=== PATIENT | female | born 1975 | race Hispanic/Latino ===

== ENCOUNTER 2017-09-17 11:05 | Emergency (ER) | payer OTHER ==
--- NOTE | 2017-09-17 11:54 | RAD ---
PORTABLE CHEST 1 VIEW: Date: 09/17/17 Time: 1122 hours HISTORY: Chest pain. FINDINGS: Comparison is made with exam dated 06/19/17. The heart size is normal. There are air space opacities bilaterally, right greater than left. No pne umothoraces or large effusions are seen. IMPRESSION: Findings are suspicious for pneumonia. POS: [facility]
[2017-09-17 12:13] LABS: Lactic Acid - Sepsis 1.4 mmol/L (0.5-2.2)
[2017-09-17] MEDS ORDERED: Piperacillin/Tazobactam 3.375 GM VIAL ONE (13:26)
[2017-09-17 13:56] LABS: #Basophils 0.1 thou/uL (0.0-0.2); #Lymphocytes 1.2 thou/uL (1.20-3.40); #Monocytes 0.4 thou/uL (0.11-0.59); #Neutrophils 9.8 thou/uL (1.40-6.50); %Basophils 0.6 % (0.0-1.0); %Eosinophils 7.8 % (0.0-10.0); %Lymphocytes 9.9 % (21.0-51.0); %Monocytes 3.3 % (0.0-10.0); Hematocrit 33.5 % (36.0-47.0); Mean Platelet Volume 7.4 fL (7.4-10.4); Red Blood Cell (RBC) Count 3.84 mill/uL (4.20-5.40); White Blood Cell (WBC) Count 12.5 thou/uL (4.8-10.8)
[2017-09-17 14:03] LABS: PTT 28.6 SEC (22.9-36.1); Prothrombin Time 12.5 SEC (12.0-14.7)
[2017-09-17 14:17] LABS: ALT (SGPT) 32 U/L (8-55); AST (SGOT) 39 U/L (5-34); Alkaline Phosphatase 297 U/L (40-150); Anion Gap 18 mmol/L (10-20); BUN (Urea Nitrogen) 68 mg/dL (7.0-18.7); Bilirubin, Total 0.8 mg/dL (0.2-1.2); CK (CPK) 140 U/L (29-168); Calc. Creatinine Clearance 0 mL/min (70-130); Calcium 8.3 mg/dL (7.8-10.44); Carbon Dioxide 23 mmol/L (22-29); Chloride 98 mmol/L (98-107); Estimated GFR-MDRD 9; Lipase Less than 4 U/L (8-78); Protein, Total 6.1 g/dL (6.0-8.3)
[2017-09-17 14:18] LABS: Troponin I 0.058 ng/mL (< 0.028)
[2017-09-17] MEDS ORDERED: Morphine 2 MG/ML SYRINGE ONE (17:15)
[2017-09-17 17:52] LABS: Troponin I 0.076 ng/mL (< 0.028)
== END 2017-09-17 18:21 | disposition short-term general hospital (02) ==
LOC: ERS 11:05
DX: A41.9 Sepsis, unspecified organism (principal); J18.9 Pneumonia, unspecified organism; I25.10 Atherosclerotic heart disease of native coronary artery without angina pectoris; E10.40 Type 1 diabetes mellitus with diabetic neuropathy, unspecified; D64.9 Anemia, unspecified; I12.0 Hypertensive chronic kidney disease with stage 5 chronic kidney disease or end stage renal disease; E10.22 Type 1 diabetes mellitus with diabetic chronic kidney disease; N18.6 End stage renal disease; Z99.2 Dependence on renal dialysis; K21.9 Gastro-esophageal reflux disease without esophagitis; G47.00 Insomnia, unspecified; F41.9 Anxiety disorder, unspecified; F32.9 Major depressive disorder, single episode, unspecified; Z79.899 Other long term (current) drug therapy
CPT/HCPCS: 36415; 36416; 71010; 80053; 82553; 83605; 83690; 83880; 84484; 85025; 85610; 85730; 87040; 93005; 94640; 96365; 96366; 96367; 96375; J1956; J2270; J2543; J3370; J7620

== ENCOUNTER 2019-03-10 12:16 | Inpatient (IN) | payer OTHER ==
[2019-03-10] MEDS ORDERED: Atropine Sulfate 1 mg/10 ml Syringe ONE (13:27)
[2019-03-10] MEDS ORDERED: Piperacillin/Tazobactam 2.25 GM VIAL ONE (13:27)
--- NOTE | 2019-03-10 13:40 | RAD ---
PORTABLE CHEST: Date: 03/10/19 HISTORY: Bradycardia, altered mental status. COMPARISON: 09/17/17 exam. FINDINGS: Heart size is enlarged. Mediastinal structures are unremarkable. Lungs show some chronic appearing ch angeles. No signs of failure. IMPRESSION: Cardiomegaly. No acute process. POS: [facility]
[2019-03-10 13:46] LABS: #Basophils 0.1 thou/uL (0.0-0.2); #Eosinphils 0.1 thou/uL (0.0-0.7); #Lymphocytes 1.8 thou/uL (1.20-3.40); #Monocytes 0.5 thou/uL (0.11-0.59); #Neutrophils 5.3 thou/uL (1.40-6.50); %Basophils 0.7 % (0.0-1.0); %Eosinophils 1.2 % (0.0-10.0); %Lymphocytes 23.7 % (21.0-51.0); %Monocytes 6.9 % (0.0-10.0); %Neutrophils 67.5 % (42.0-75.0); Hemoglobin 10.6 g/dL (12.0-16.0); Mean Corpuscular HGB CONC 30.7 g/dL (32.0-36.0); Mean Corpuscular Hemoglobin 26.7 pg (27.0-31.0); Mean Corpuscular Volume 86.8 fL (78.0-98.0); Platelet Count 138 thou/uL (130-400); Red Blood Cell (RBC) Count 3.98 mill/uL (4.20-5.40); White Blood Cell (WBC) Count 7.8 thou/uL (4.8-10.8)
[2019-03-10 13:49] LABS: ALT (SGPT) Less than 7 U/L (8-55); AST (SGOT) 10 U/L (5-34); Acetaminophen Less than 6.0 mcg/mL (10.0-30.0); Albumin 4.6 g/dL (3.5-5.0); Alcohol Less than 10 mg/dL (Less than 10); Alkaline Phosphatase 279 U/L (40-150); Bilirubin, Total 1.2 mg/dL (0.2-1.2); Calc. Creatinine Clearance 0 mL/min (70-130); Calcium 8.6 mg/dL (7.8-10.44); Chloride 107 mmol/L (98-107); Estimated GFR-MDRD 3; Globulin 3.2 g/dL (2.4-3.5); Glucose 148 mg/dL (70-105); Protein, Total 7.8 g/dL (6.0-8.3); Salicylate Less than 8.0 mg/dL (15.0-30.0); Sodium 141 mmol/L (136-145)
[2019-03-10 14:02] LABS: Carbon Dioxide Less than 16 mmol/L (22-29)
[2019-03-10 14:05] LABS: Anisocytosis SLIGHT = 6-15 cells (100X) (0-5/hpf)
[2019-03-10 14:06] LABS: Hypochromia SLIGHT = 6-15 cells (100X) (0-5/hpf); Microcytosis SLIGHT = 6-15 cells (100X) (0-5/hpf); Platelet Morphology Comment Appears Adequate
[2019-03-10 14:09] LABS: Potassium 7.3 mmol/L (3.5-5.1)
[2019-03-10 14:15] LABS: BUN (Urea Nitrogen) 137 mg/dL (7.0-18.7)
[2019-03-10 14:17] LABS: Actual Bicarbonate (HCO3a) 6.2 mEq/L (22-28); Analyzer IN Cardio ER; Base Excess (BEa) -22.3 mEq/L (-2.0 to +3.0); Calcium, Ionized 1.08 mmol/L (1.12-1.30); Carboxyhemoglobin (COHb) 0.3 gm% (0.0-3.0); Hemoglobin (Hb) 11.3 g/dL (12.0-16.0); O2 Tension (PaO2) 83.6 mmHg (80.0-100.0); Potassium - ABG Lab 6.83 mmol/L (3.70-5.30)
[2019-03-10 14:19] LABS: ALV-art Gradient 38.505 (0-20); CO2 Tension 22.1 mmHg (35.0-45.0); Puncture Site RBA; pH, Arterial 7.07 (7.35-7.45)
--- NOTE | 2019-03-10 14:25 | PDOC.FPRHP ---
- History of Present Illness Chief Complaint: AMS History of Present Illness: This is a 43 yo F presenting to the ED from [facility], [place] w/ a CC of AMS reportedly for 2-3 days. The patient has a PMH significant for ESRD on dialysis on Sunday, Sunday, and Sunday. She is being treated for C. difficile on day 21 vancomycin 500 mg bid. She is a poor historian and is unable to elicit history from patient. She is minimally responsive, AO X 1, oriented only to place. She know in the hospital. She responds to pain in lower extremities. Will not answer any other questions. Follows commands. Nods head yes when asked about desire for resuscitative measures. ED Course: The patient arrived in the ED with AMS and hypotension and was treated with bolus of 750 mL of sodium chloride 0.9% IV. Her blood pressure stabilized. After initial labs, the patient was discovered to be hyperkalemic and was treated with albuterol sulfate inhalation 7.5 mg nebulize, calcium chloride 100 mg/mL IV push, dextrose 50% in water, insulin regular, human 10 units, IV, sodium bicarbonate intravenous 1 amp IV push. She was bradycardic and was treated with atropine 0.5 mg IV Push. For a suspected UTI, the patient was given zosyn 2.25 g IV piggy back. After treatment, the patient still altered, being poorly responsive and oriented - Allergies/Adverse Reactions Allergies Allergy/AdvReac Type Severity Reaction Status Date / Time No Known Allergies Allergy Verified 05/21/17 19:21 - Home Medications Medication Instructions Recorded Confirmed Type Ondansetron [Ondansetron ODT] 1 tab PO Q6HR PRN 11/17/16 03/11/19 History Pantoprazole [Protonix] 40 mg PO DAILY 11/17/16 03/11/19 History hydrALAZINE HCl 1 tab PO TID 11/17/16 03/11/19 History Metoclopramide HCl [Reglan] 5 mg PO Q8HR PRN 05/21/17 03/11/19 History Amlodipine [Norvasc] 10 mg PO DAILY #30 tab 05/25/17 03/11/19 Rx AcetaZOLAMIDE [Diamox] 1 tab PO DAILY 03/11/19 03/11/19 History Atropine Sulfate [Atropine 1% 1 drop L EYE BID 03/11/19 03/11/19 History Ophth Soln] Brimonidine Tartrate [Brimonidine 1 drop L EYE TID 03/11/19 03/11/19 History Tartrate 0.15% Ophth Soln] Dicyclomine [Bentyl] 10 mg PO QID PRN 03/11/19 03/11/19 History Dorzolamide HCl 1 drop L EYE TID 03/11/19 03/11/19 History Gabapentin 1 capsule PO BID 03/11/19 03/11/19 History Insulin Detemir [Levemir] 5 units SQ HS 03/11/19 03/11/19 History Loperamide HCl [Loperamide] 1 tablet PO PRN PRN MDD 4 Tablets 03/11/19 03/11/19 History Melatonin 10 mg PO HS 03/11/19 03/11/19 History Metoprolol Succinate 1 tab PO DAILY 03/11/19 03/11/19 History Saccharomyces Boulardii [Florastor] 250 mg PO BID 03/11/19 03/11/19 History Sertraline HCl 1 tablet PO DAILY 03/11/19 03/11/19 History Sevelamer Carbonate [Renvela] 1 packet PO TID-WM 03/11/19 03/11/19 History Timolol Maleate [Timoptic 0.5% 1 drop L EYE TID 03/11/19 03/11/19 History Ophth Soln] prednisoLONE Acetate [Econopred 1 drop L EYE TID 03/11/19 03/11/19 History Plus 1% Opth Susp] - History PMHx: CAD, neuropathy, gastroparesis, chronic anemia, HTN, ESRD on dialysis MWF , DM type I, insomnia, GERD, enterocolitis due to C diff PSHx: tubal ligation, dialysis shunt L upper extremity, I/D for abscess, surgery for traumatic pneumothorax w/ chest tube FHx: non contributory Social: denies alcohol, drug or tobacco use - Review of Systems ROS unobtainable: due to mental status - Vital signs BP: 88/35, Pulse: 47, Resp: 18, Pain: UTR, O2 sat: 94 on Room Air, Temp: 97.4 Time: 03/10/2019 12:27. BP: 89/49, Pulse: 73, Resp: 16, Temp: 97.6 (Oral), Pain: UTR, O2 sat: 95 on Room Air, Time: 03/10/2019 14:14. - Physical Exam HEENT: normocephalic and atraumatic, other (left eye injected, right eye absent with crust bilaterally) -HEENT: R eye matted closed. L eye Neck: supple, trachea midline Chest: no-tender to palpation Heart: RRR, normal S1/S2, pulses present (lower extremities) Lungs: CTAB, no wheezing Abdomen: soft, non-tender, bowel sounds present, no masses/distention Musculoskeletal: normal structure Neurological: no focal deficit -Neurological: strength 2/5 in bilateral upper and lower extremities Skin: no rash/lesions, good turgor, capillary refill <2 seconds, other (skin lesions bilaterally in lower extremities: flat, hyperpigmented, non-pruritic, non-erthyematous) Psychiatric: other (altered) FMR H&P: Results - Labs Result Diagrams: 03/11/19 05:39 03/11/19 04:22 Lab results: WBC 7.8 thou/uL (4.8-10.8) 03/10/19 13:15 Hgb 10.6 g/dL (12.0-16.0) L 03/10/19 13:15 Hct 34.5 % (36.0-47.0) L 03/10/19 13:15 MCV 86.8 fL (78.0-98.0) 03/10/19 13:15 Plt Count 138 thou/uL (130-400) 03/10/19 13:15 Neutrophils % 67.5 % (42.0-75.0) 03/10/19 13:15 ABG pH 7.07 (7.35-7.45) L* 03/10/19 14:15 ABG pCO2 22.1 mmHg (35.0-45.0) L* 03/10/19 14:15 ABG pO2 83.6 mmHg (80.0-100.0) 03/10/19 14:15 Sodium 141 mmol/L (136-145) 03/10/19 13:15 Potassium 7.3 mmol/L (3.5-5.1) H* 03/10/19 13:15 Chloride 107 mmol/L (98-107) 03/10/19 13:15 Carbon Dioxide Less than 16 mmol/L (22-29) L 03/10/19 13:15 BUN 137 mg/dL (7.0-18.7) H 03/10/19 13:15 Creatinine 14.42 mg/dL (0.6-1.1) H 03/10/19 13:15 Glucose 148 mg/dL (70-105) H 03/10/19 13:15 Calcium 8.6 mg/dL (7.8-10.44) 03/10/19 13:15 Total Bilirubin 1.2 mg/dL (0.2-1.2) 03/10/19 13:15 AST 10 U/L (5-34) 03/10/19 13:15 ALT Less than 7 U/L (8-55) L 03/10/19 13:15 Alkaline Phosphatase 279 U/L (40-150) H 03/10/19 13:15 Ammonia 32 umol/L (18-72) 03/10/19 13:15 Serum Total Protein 7.8 g/dL (6.0-8.3) 03/10/19 13:15 Albumin 4.6 g/dL (3.5-5.0) 03/10/19 13:15 - Radiology Interpretation Chest x-ray Status: report reviewed by me (cardiomegaly, no acute process) FMR H&P: A/P - Problem List (1) Acute metabolic encephalopathy Current Visit: Yes Status: Acute Code(s): G93.41 - METABOLIC ENCEPHALOPATHY (2) Anemia of renal disease Current Visit: No Status: Chronic Code(s): D63.1 - ANEMIA IN CHRONIC KIDNEY DISEASE (3) Depression Current Visit: No Status: Chronic Code(s): F32.9 - MAJOR DEPRESSIVE DISORDER , SINGLE EPISODE, UNSPECIFIED (4) Diabetes type 1, uncontrolled Current Visit: No Status: Chronic Code(s): E10.65 - TYPE 1 DIABETES MELLITUS WITH HYPERGLYCEMIA (5) Diabetic gastroparesis Current Visit: No Status: Chronic Code(s): E11.43 - TYPE 2 DIABETES W DIABETIC AUTONOMIC (POLY)NEUROPATHY; K31.84 - GASTROPARESIS (6) ESRD (end stage renal disease) on dialysis Current Visit: No Status: Chronic Code(s): N18.6 - END STAGE RENAL DISEASE; Z99.2 - DEPENDENCE ON RENAL DIALYSIS (7) Hypertension Current Visit: No Status: Chronic Code(s): I10 - ESSENTIAL (PRIMARY) HYPERTENSION (8) Hyperkalemia Current Visit: Yes Status: Resolved Code(s): E87.5 - HYPERKALEMIA (9) Metabolic acidosis Current Visit: Yes Status: Acute Code(s): E87.2 - ACIDOSIS - Plan Metabolic encephalopathy, assumed to be due to hyperkalemia --admit to IMCU for emergent dialysis --s/p calcium gluconate, albuterol, sodium bicarbonate. --AM labs - K on admission 7.8 -> 5.6 --pt mental status improved after correction of hyperkalemia and fluid bolus ESRD on dialysis MWF --last dialysis was on 03/03 due to patient refusal --provide emergent dialysis on 03/10 --nephro consulted from the ED Metabolic Acidosis -- pH 7.07 -> 7.14, will repeat, patient's VSS Suspected viral conjunctivitis --consult ophthalmology Clostridium difficile infection, present on admission --treated for 20/21 days with oral vancomycin --continue oral vancomycin --enteric precautions --repeat c diff cx CAD --stable --continue to monitor, chest pain GERD --continue home meds --continue to monitor for symptoms Insomnia --continue monitor --provide meds prn Chronic Anemia --stable likely due to ESKD --continue to monitor DM type 2 --insulin sliding scale, pt reportedly non compliant w/ insulin regimen --currently NPO, advance diet as tolerated Hx of Glaucoma --aware, continue current home meds DISPO: admit to IMCU, emergent dialysis tonight Code: FULL Diet: NPO till speech eval Note by MS4,PHD Javi Reyes & PGY1 Olive Goss Case discussed with Dr. Esparza FMR H&P: Upper Level - Pertinent history 43 yo female here for AMS. Pt is resident at [facility] in [place]. History obtained from records and EMS as patient is mostly non responsive to questions, but does open eyes when calling her name and protects airway without difficulty. Apparently patient was seen by Dr. Thompson this morning and he requested patient be sent to ER for eval. Pt has Hx of ESRD on HD MWF, but was apparently refused dialysis today. Pt has recent history of cdiff on po vancomycin. In ER, patient received 750ml bolus, calcium chloride, albuterol, insulin, sodium bicarb, atropine, zosyn - Pertinent findings EKG: peaked T waves CXR: cardiomegaly 105/53 HR: 61 TEMP: 97.8 RR: 20 99% on ventimask GEN: minimally responsive HEENT: right eye removed, purulent discharge in both eyes with erythematous conjunctiva of left eye CARD: RRR, JESSY PULM: CTAB ABD: soft, nontender - Plan Date/Time: 03/10/19 1422 I, Ish Castillo DO, have evaluated this patient and agree with findings/plan as outlined by general internist and physician leader resident. Pertinent changes/additions are listed here. #acute encephalopathy 2/2 hyperkalemia 2/2 ESRD on HD -pt has missed the past 3 HD days, last HD was 03/03/19 per Jesi at [facility] -pt refuses meds regularly such as her nighttime levemir and fluid restriction of 1000ml/day -pt received fluids, albuterol, insulin -Dr. Hannon consulted, HD today -admit to imcu -Repeat labs #Cdiff -continue vanc -per records, patient is scheduled to get fecal transplant in a couple days with Dr. Bustillos #diabetes type 1 -continue home meds -called [facility] and spoke with Jesi who provide good amount of info Addendum - Attending - Attending Attestation Date/Time: 03/11/19 0902 I personally evaluated the patient and discussed the management with Dr. Goss and team on day of admission in the emergency room. I agree with and repeated the History, Examination, Assessment and Plan documented above with any addition or exceptions noted below. Patient on ESRD with hyperkalemia and initially bradycardic/hypotensive which responded to tx for her hypokalemia. She was answering questions for my team but refuses when I saw her. Resting, NAD Right eye absent, left with profound erythema which she will not allow me to thoroughly examine RRR s M, no edema CTAB s w/r/r BS+, NTTP, No palp HSM No prominent skin lesions or rashes moves all extremities labs and imaging reviewed Hyperkalemia with profound azotemia -recheck K, emergent dialysis -hold any antihypertensives Acute encephalopathy vs poor informant -if her mentation does not clear would recommend imaging, but in light of her answering questions appropriately previously I would hold off Red eye -MEGAN, bacterial conj, infx endophthalmitis, acute angle closure glaucoma, other -recommend discussing with ophthalmology to see Patient to ICU, guarded prognosis pending dialysis.
[2019-03-10] MEDS ORDERED: Calcium Chloride 1 GM/10 ML Abboject SYRINGE ONE ×2 (14:32→14:34)
[2019-03-10] MEDS ORDERED: Dextrose 50% Abboject 50 ML SYRINGE ONE (14:32)
[2019-03-10] MEDS ORDERED: Insulin Regular 300 UNITS/3 ML VIAL ONE (14:32)
[2019-03-10] MEDS ORDERED: Sodium Bicarb 50 MEQ/50 ML Abboject 8.4% SYRINGE ONE ×2 (14:32→17:21)
[2019-03-10] MEDS ORDERED: Albuterol Sulfate 2.5 mg/0.5 ml Neb ONE ×3 (14:35→14:36)
[2019-03-10] MEDS ORDERED: Albuterol Sulfate 2.5 mg/3 ml Neb ONE (14:36)
[2019-03-10] MEDS ORDERED: Calcium Gluconate 4.6 MEQ in Sodium Chloride 0.9% 100 ML IVPB SCH (16:15)
[2019-03-10 16:51] LABS: Calc. Creatinine Clearance 0 mL/min (70-130); Calcium 9.5 mg/dL (7.8-10.44); Chloride 110 mmol/L (98-107); Estimated GFR-MDRD 3; Glucose 240 mg/dL (70-105); Potassium 5.6 mmol/L (3.5-5.1); Sodium 145 mmol/L (136-145)
[2019-03-10 16:53] LABS: Actual Bicarbonate (HCO3a) 7.8 mEq/L (22-28); Analyzer IN Cardio ER; Base Excess (BEa) -19.6 mEq/L (-2.0 to +3.0); Calcium, Ionized 1.25 mmol/L (1.12-1.30); Carboxyhemoglobin (COHb) 0.3 gm% (0.0-3.0); O2 Tension (PaO2) 112.9 mmHg (80.0-100.0); Potassium - ABG Lab 5.39 mmol/L (3.70-5.30)
[2019-03-10 16:55] LABS: CO2 Tension 23.7 mmHg (35.0-45.0); Puncture Site RBA; pH, Arterial 7.14 (7.35-7.45)
[2019-03-10] MEDS ORDERED: Sodium Chloride 0.9% (PF) 10 ML VIAL FS PRN (16:56)
[2019-03-10 16:59] LABS: Carbon Dioxide Less than 8 mmol/L (22-29)
[2019-03-10 17:02] LABS: BUN (Urea Nitrogen) 135 mg/dL (7.0-18.7)
[2019-03-10] MEDS ORDERED: Melatonin 3 MG TAB PO PRN (18:19)
[2019-03-10] MEDS ORDERED: Ondansetron ODT 4 MG TAB PO PRN (19:08)
[2019-03-10] MEDS ORDERED: Acetaminophen 325 MG TAB PO PRN (19:08)
[2019-03-10] MEDS ORDERED: Dextrose 50% Abboject 50 ML SYRINGE SLOW IVP PRN (19:08)
[2019-03-10] MEDS ORDERED: Dextrose 5% in Water 1,000 ML IV PRN (19:08)
[2019-03-10] MEDS ORDERED: Lactated Ringer's 1,000 ML IV SCH (19:08)
[2019-03-10] MEDS ORDERED: HumaLOG 300 UNITS/3 ML VIAL SC PRN (19:08)
[2019-03-10] MEDS: Heparin 5,000 UNITS/ML VIAL SC SCH (21:16)
[2019-03-10] MEDS: Insulin Glargine 5 UNITS in Pre-Filled Syringe 1 EACH SC SCH (21:16)
--- NOTE | 2019-03-10 21:23 | PDOC.EVN ---
Event Note - Event Note Event Note: Paged to bedside for jerking movements. Does have slight twitching movememnts of mouth/jaw area and in b/l distal upper extremities. Responds to painful stimuli and obeys commands of toe wiggling. VS reviewed and mildly hypertensive. Has gotten ~1hr HD. Most likely twitching movements are due to Toxic Metabolic Encephalopathy. Will repeat ABG anc continue to monitor. continue HD. Addendum - Attending - Attending Attestation Date/Time: 03/10/192225 I personally evaluated the patient and discussed the management with Dr. Roberson I agree with the History, Examination, Assessment and Plan documented above with any addition or exceptions noted below. 43 yo Diabetic NH patient with ESRD with history noncompliance missed last 3 HD treatment admitted with AMS toxic encephalopathy, acidosis and hyperkalemic Patient with no response to verbal/ painful stimulus upper extremities with myoclonic jerks. She has PMHX C. Difficile under treatment with po vancomycin. BP 194/83 P 86 afebrile. HEENT right eye s/p enucleation left eye blind neck supple lung clear at bases heart NSR abdomen soft. decline in responsiveness questioable DKA ,sepsis on admission will rec CT head s/p Dialysis will notify critical care Physician and Dr Hannon (nephrology) and note Patient is DNAR status Patient Father notified and attempting to notify children of change further decline in mental status.
[2019-03-10 22:21] LABS: Actual Bicarbonate (HCO3a) 20.8 mEq/L (22-28); Base Excess (BEa) -0.1 mEq/L (-2.0 to +3.0); Calcium, Ionized 1.12 mmol/L (1.12-1.30); Carboxyhemoglobin (COHb) 1.2 gm% (0.0-3.0); Hemoglobin (Hb) 9.6 g/dL (12.0-16.0); O2 Tension (PaO2) 92.7 mmHg (80.0-100.0); Potassium - ABG Lab 2.92 mmol/L (3.70-5.30)
[2019-03-10] MEDS ORDERED: hydrALAZINE 20 MG/ML VIAL ONE (22:21)
[2019-03-10 22:22] LABS: ALV-art Gradient 28.655 (0-20); CO2 Tension 22.7 mmHg (35.0-45.0); Puncture Site RRA; pH, Arterial 7.58 (7.35-7.45)
--- NOTE | 2019-03-10 22:29 | CON ---
DATE OF CONSULTATION: HISTORY OF PRESENT ILLNESS: Ms. Thao is a 43-year-old female with ESRD, admitted for mental status change. She was noted to be hypotensive and minimally responsive at the ER. She was also noted to be hyperkalemic. She was given insulin, calcium gluconate for her hyperkalemia. We are now being consulted for emergent hemodialysis. In addition, due to the low blood pressure, empiric volume repletion was given, which improved the blood pressure from the 80 systolic to currently a BP of 120/70. REVIEW OF SYSTEMS: Not obtainable since the patient is minimally responsive. HOME MEDICATIONS: Include the followin. Zofran 4 mg one tablet q.6 p.r.n. 2. Protonix 40 mg daily. 3. Renvela 800 mg p.o. t.i.d. with meals. 4. Zolpidem one tablet q.h.s. p.r.n. 5. Vistaril 25 mg p.o. t.i.d. 6. Megace 400 mg p.o. b.i.d. 7. Reglan 5 mg p.o. t.i.d. before meals. 8. Tramadol 50 mg q.i.d. p.r.n. 9. Amlodipine 10 mg once a day. 10. Insulin Levemir 20 units subcutaneous b.i.d. 11. Humalog sliding scale. PAST MEDICAL HISTORY: 1. ESRD from diabetic nephropathy, currently on maintenance hemodialysis on Sunday, Sunday, and Sunday. 2. Diabetic retinopathy, type 1 diabetes mellitus, diabetic gastroparesis. 3. Decreased visual activity, diabetic retinopathy. PAST SURGICAL HISTORY: Status post right eye enucleation, status post bilateral tubal ligation, status post AV fistula placement, status post cuffed hemodialysis catheter placement. SOCIAL HISTORY: The patient lives in a jail in [place], 2 children, single. No alcohol intake. No drug abuse. Status post blood transfusion. Sedentary lifestyle. Medically disabled. 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 Education 9th grade. ALLERGIES: NONE. TRAUMA: None. IMMUNIZATION: Up-to-date. HOSPITALIZATIONS: Please see past medical history. PHYSICAL EXAMINATION: VITAL SIGNS: Blood pressure 130/70, heart rate 70, respiratory rate 12, pulse ox 100%. GENERAL: The patient is awake, minimally responsive to my verbal commands. SKIN: Adequate turgor. HEENT: Pinkish conjunctivae. Anicteric sclerae. Right eye is enucleated. NECK: No neck mass. No carotid bruits. No JVD. LUNGS: Clear breath sounds. HEART: Normal sinus rhythm. No murmur. No gallops. No rubs. ABDOMEN: Globular, soft, nontender. No masses. EXTREMITIES: No edema. No deformities. LABORATORY DATA: Laboratories of March 10, 2019; white count 7.8, hemoglobin 10.6. Sodium 141, potassium 7.3, chloride 107, carbon dioxide 16, BUN 137, creatinine 14.42, glucose 148, calcium 8.6, AST 10, ALT less than 7, ammonia level is 32. IMAGING DATA: March 10, 2019, chest x-ray shows cardiomegaly. No acute process. ASSESSMENT AND PLAN: 1. Hypotension, empiric volume repletion. Currently, has received several milliliters of normal saline. P.r.n. infusion. We will minimize fluid removal with dialysis. 2. End-stage renal disease, stable. We will continue current hemodialysis regimen on Sunday, Sunday, and Sunday. Due to the hyperkalemia, an emergent dialysis schedule has been done for the patient. Review of the last Kt/V suggests she is adequately dialyzed with the current dialysis regimen. 3. Please note the patient's hemoglobin is 10.6. 4. Overall, agree with current management. Job ID: [id number]
[2019-03-10] MEDS ORDERED: hydrALAZINE 20 MG/ML VIAL SLOW IVP SCH (22:30)
[2019-03-10] MEDS: hydrALAZINE 25 MG TAB PO SCH (22:41)
[2019-03-10] MEDS: Gabapentin 300 MG CAP PO SCH (22:41)
[2019-03-10] MEDS: Vancomycin HCl 25 MG/ML Oral PO SCH (22:42)
[2019-03-10 23:00] LABS: Phosphorus 1.9 mg/dL (2.3-4.7)
[2019-03-10 23:06] LABS: ALT (SGPT) Less than 7 U/L (8-55); AST (SGOT) 13 U/L (5-34); Albumin 4.4 g/dL (3.5-5.0); Alkaline Phosphatase 249 U/L (40-150); Anion Gap 20 mmol/L (10-20); BUN (Urea Nitrogen) 23 mg/dL (7.0-18.7); Bilirubin, Total 0.9 mg/dL (0.2-1.2); Calc. Creatinine Clearance 12 mL/min (70-130); Calcium 9.7 mg/dL (7.8-10.44); Carbon Dioxide 24 mmol/L (22-29); Chloride 100 mmol/L (98-107); Estimated GFR-MDRD 16; Globulin 2.8 g/dL (2.4-3.5); Glucose 109 mg/dL (70-105); Potassium 2.8 mmol/L (3.5-5.1); Protein, Total 7.2 g/dL (6.0-8.3); Sodium 141 mmol/L (136-145)
[2019-03-10 23:24] LABS: HBSAg Index 0.31 S/CO (0-0.99); Hep B Surf Ag Non-Reactive S/CO (NonReactive)
[2019-03-10 23:25] LABS: #Lymphocytes 0.5 thou/uL (1.20-3.40); #Monocytes 0.2 thou/uL (0.11-0.59); #Neutrophils 5.3 thou/uL (1.40-6.50); %Basophils 0.7 % (0.0-1.0); %Eosinophils 0.5 % (0.0-10.0); %Lymphocytes 8.5 % (21.0-51.0); %Monocytes 3.5 % (0.0-10.0); %Neutrophils 86.9 % (42.0-75.0); Hemoglobin 9.5 g/dL (12.0-16.0); Mean Corpuscular HGB CONC 34.5 g/dL (32.0-36.0); Mean Corpuscular Hemoglobin 28.4 pg (27.0-31.0); Mean Corpuscular Volume 82.4 fL (78.0-98.0); Platelet Count 129 thou/uL (130-400); RBC Distribution Width 15.7 % (11.5-14.5); Red Blood Cell (RBC) Count 3.35 mill/uL (4.20-5.40); White Blood Cell (WBC) Count 6.2 thou/uL (4.8-10.8)
--- NOTE | 2019-03-10 23:51 | PDOC.EVN ---
Event Note - Event Note Event Note: checked on patient again after ABG results and now metabolic alkolysis 2/2 presumed bicarb administration in ED. HD ongoing. Did redraw lab work. Spoke with Pulmonology and Dr Parvez Lemon and plan to change IVF to D5NS, and obtain CT head after HD. Will also place pt on Keppra as she has possibly seizure activity. Pt presented with out of hospital DNAR form and her father confirmed this. He tried to contact pt's daughter but not able to contact. Will check back with pt after CT head. Will repeat labs in several hours and ABG in AM. Dr Looyla at bedside with patient as well.
[2019-03-11 00:09] VITALS: BMI 12.7
[2019-03-11] MEDS ORDERED: hydrALAZINE 20 MG/ML VIAL SLOW IVP PRN (00:10)
[2019-03-11] MEDS: Dextrose 5 % And 0.9 % NaCl 1,000 ML IV SCH ×2 (00:20→16:55)
[2019-03-11 04:59] LABS: ALT (SGPT) Less than 7 U/L (8-55); AST (SGOT) 15 U/L (5-34); Albumin 4.2 g/dL (3.5-5.0); Alkaline Phosphatase 258 U/L (40-150); Anion Gap 17 mmol/L (10-20); BUN (Urea Nitrogen) 26 mg/dL (7.0-18.7); Calc. Creatinine Clearance 9 mL/min (70-130); Calcium 8.9 mg/dL (7.8-10.44); Carbon Dioxide 25 mmol/L (22-29); Chloride 102 mmol/L (98-107); Estimated GFR-MDRD 12; Globulin 2.5 g/dL (2.4-3.5); Glucose 69 mg/dL (70-105); Potassium 3.5 mmol/L (3.5-5.1); Protein, Total 6.7 g/dL (6.0-8.3); Sodium 140 mmol/L (136-145)
[2019-03-11 06:03] LABS: #Basophils 0.1 thou/uL (0.0-0.2); #Eosinphils 0.1 thou/uL (0.0-0.7); #Lymphocytes 0.8 thou/uL (1.20-3.40); #Monocytes 0.6 thou/uL (0.11-0.59); #Neutrophils 5.6 thou/uL (1.40-6.50); %Basophils 0.7 % (0.0-1.0); %Eosinophils 1.5 % (0.0-10.0); %Lymphocytes 11.5 % (21.0-51.0); %Monocytes 7.9 % (0.0-10.0); %Neutrophils 78.3 % (42.0-75.0); Mean Corpuscular HGB CONC 33.9 g/dL (32.0-36.0); Mean Corpuscular Hemoglobin 28.3 pg (27.0-31.0); Mean Corpuscular Volume 83.4 fL (78.0-98.0); Platelet Count 122 thou/uL (130-400); RBC Distribution Width 15.8 % (11.5-14.5); Red Blood Cell (RBC) Count 3.89 mill/uL (4.20-5.40); White Blood Cell (WBC) Count 7.2 thou/uL (4.8-10.8)
[2019-03-11 06:24] LABS: Bilirubin Small (Negative); Blood, Urine Trace (Negative); Clarity CLEAR (Clear); Glucose, Urine (Dipstick) 250 mg/dL (Negative); Leukocyte Negative (Negative); Nitrite Negative (Negative); Protein, Urine (Dipstick) > or equal to 300 mg/dL (Neg-Trace); Urobilinogen 0.2 mg/dL (0.2-1.0); pH, Urine 7.5 (5.0-9.0)
[2019-03-11 06:26] LABS: Bacteria/HPF None Seen HPF (None Seen); Hyaline Casts/LPF 0-3 HYALINE CAST LPF (0-3 Hyaline); Squamous Epithelial 0-3 HPF (0-3); WBC/HPF 0-3 HPF (0-3)
--- NOTE | 2019-03-11 06:26 | PDOC.FM ---
Addendum entered and electronically signed by Quinton June MD 03/11/19 07: 04: Seizure Like activity - Given Keppra - Will monitor for signs and symptoms or recurrence - Likely need outpatient follow - Will consider Neuro consultation during hospitalization. Original Note: - Subjective Subjective: 43 yo female seen at bedside this AM. She does not respond to questions or follow commands. Overnight, she had multiple episodes of "jerking" movements and placed on Keppra. Repeat CT scan at that time showed no acute changes. No other history is able to be obtained. Per nursing staff, she was not following commands or communicating overnight. She does moan when turned. No other history is able to be obtained. - Objective Vital Signs & Weight: Vital Signs (12 hours) Temp Pulse Ox 03/11/19 04:00 98.2 F 03/11/19 00:00 98.1 F 100 03/10/19 22:00 99.6 F 03/10/19 20:00 96.5 F L 03/10/19 19:35 100 Weight Weight 32.5 kg Most Recent Monitor Data Heart Rate from ECG 75 NIBP 157/95 NIBP BP-Mean 115 Respiration from ECG 13 SpO2 98 I&O: 03/09/19 03/10/19 03/11/19 06:59 06:59 06:59 Intake Total 429 Output Total 100 Balance 329 Result Diagrams: 03/11/19 05:39 03/11/19 04:22 Phys Exam - Physical Examination HEENT: moist MMs Respiratory: no wheezing, clear to auscultation bilateral Cardiovascular: RRR 3/6 JESSY present Gastrointestinal: soft, non-tender, no distention, positive bowel sounds Musculoskeletal: no edema, pulses present Neurological: moves all 4 limbs Deviation from normal: does not communicate and does not follow commands Skin: no rash Dx/Plan (1) Acute metabolic encephalopathy Code(s): G93.41 - METABOLIC ENCEPHALOPATHY Status: Acute (2) Hyperkalemia Code(s): E87.5 - HYPERKALEMIA Status: Resolved (3) Anemia of renal disease Code(s): D63.1 - ANEMIA IN CHRONIC KIDNEY DISEASE Status: Chronic (4) Diabetes type 1, uncontrolled Code(s): E10.65 - TYPE 1 DIABETES MELLITUS WITH HYPERGLYCEMIA Status: Chronic (5) ESRD (end stage renal disease) on dialysis Code(s): N18.6 - END STAGE RENAL DISEASE; Z99.2 - DEPENDENCE ON RENAL DIALYSIS Status: Chronic (6) Hypertension Code(s): I10 - ESSENTIAL (PRIMARY) HYPERTENSION Status: Chronic (7) Seizure-like activity Code(s): R56.9 - UNSPECIFIED CONVULSIONS Status: Acute (8) C. difficile colitis Status: Acute - Plan Plan: Metabolic encephalopathy, assumed to be due to hyperkalemia --admit to [facility] for emergent dialysis --s/p calcium gluconate, albuterol, sodium bicarbonate. - K on admission 7.8 -> 03/11 3.8 --pt mental status baseline unknown will confirm with family and NH staff - Initially may have been DKA component ESRD on dialysis MWF --last dialysis was on 03/03 due to patient refusal --provide emergent dialysis on 03/10 --nephro consulted from the ED Metabolic Acidosis -- pH 7.07 -> 7.14 - Overnight pH of 7.58 after bicarbonate - Resolved Clostridium difficile infection, present on admission --treated for 20/21 days with oral vancomycin --continue oral vancomycin --enteric precautions --repeat c diff cx GERD --continue home meds --continue to monitor for symptoms Insomnia --continue monitor --provide meds prn Chronic Anemia --stable likely due to ESKD --continue to monitor DM type 2 --insulin sliding scale, pt reportedly non compliant w/ insulin regimen --currently NPO, advance diet as tolerated - accuchecks Hx of Glaucoma --aware, continue current home meds Disposition: Stable, patient ready for transfer out of ICU and to floor. Will coordinate findings with [facility] staff. Addendum - Attending - Attending Attestation Date/Time: 03/11/19 8304 I personally evaluated the patient and discussed the management with Dr. June I agree with the History, Examination, Assessment and Plan documented above with any addition or exceptions noted below. Unfortunate 43 yo female with past medical history of uncontrolled DM with ESRD admitted for severe metabolic acidosis HD#1 Patient minimally responsive. Unsure baseline. Will speak with family and NH staff to better evaluate. Not responding to painful stimulus but responses briefly to voice. Will not follow commands. VS, Labs, and Imaging reviewed. Agree with PE as documented. 1. Severe metabolic and respiratory acidosis: Resolved. Likely ok to transfer out of ICU. 2. ESRD on HD: Patient with history of troubled compliance. Has been refusing HD at halfway. Now s/p emergent HD due to #1. Dr. Hannon following. Will discuss plan of continued care with family. Determine if patient would like to continue treatment or be referred for hospice. Will follow up with PCP. 3. Encephalopathy: CT reviewed. Unsure patient's baseline. Not following commands at present. GCS around 12. Family to visit later today. Will follow up. Unsure if possible seizure like activity last night. Did have risk due to initial metabolic state upon presentation. Started on anticonvulsant. Will consult neuro for EEG. 4. Red eye: Opacity noted on CT of head. Corneal clouding noted. Patient not responsive so unable to fully evaluate. Concern for possible infectious keratitis. Unsure length of redness if this is acute, subacute, or chronic. Patient's MAR from [facility] noted to have erythromicin eye drops. Will follow up with PCP. Likely consult ophtho. 5. HTN: Monitor closely. Unsure goal of BP and what patient's kidneys can tolerated. Will discuss BP goals with Dr. Hannon. Adjust home meds as needed. 6. DM: Continue insulin therapy. Cover with SSI as needed. Adjust basal insulin as needed. Dispo: Can transfer out of ICU. Consult neuro and ophtho. Follow up Nephro BP goals. Mallika
[2019-03-11 06:33] LABS: Yeast-AUWi Flag 75.3 (0-25.0)
[2019-03-11 06:36] LABS: Band 9 % (5-11); Eosinophils 3 % (0-10); Lymphocytes 10 % (21-51); MDiff Complete? YES; Monocytes 3 % (0-10); Neutrophil 74 % (42-75)
--- NOTE | 2019-03-11 06:52 | CT ---
CT BRAIN WITHOUT IV CONTRAST: HISTORY: Altered mental status. COMPARISON: 10/12/2016 FINDINGS: The right optic globe appears to have been removed. There is abnormal increased opacity within the l eft optic globe, of uncertain etiology or significance, but these findings are new when compared to t he prior 10/12/2016 study. No focal mass or midline shift. No intraaxial or extraaxial hemorrhage. The sinuses and mastoids are clear. IMPRESSION: 1. Removal of the right optic globe and markedly abnormal left optic globe with abnormal increased a ttenuation density within the optic globe, both of which are new from 2016. 2. No acute intracranial process. 3. No mass or bleed. POS: [facility]
[2019-03-11 06:57] LABS: RBC/HPF 0-3 HPF (0-3); Renal Epithelial 0-3 HPF (0-3); Transitional Epithelial 0-3 HPF (0-3); Yeast-All Forms None Seen HPF (None Seen)
[2019-03-11 07:32] LABS: Actual Bicarbonate (HCO3a) 24.2 mEq/L (22-28); Base Excess (BEa) 0.6 mEq/L (-2.0 to +3.0); CO2 Tension 35.4 mmHg (35.0-45.0); Calcium, Ionized 1.08 mmol/L (1.12-1.30); Carboxyhemoglobin (COHb) 1.3 gm% (0.0-3.0); Potassium - ABG Lab 3.72 mmol/L (3.70-5.30); Puncture Site RRA; pH, Arterial 7.45 (7.35-7.45)
--- NOTE | 2019-03-11 08:14 | CON ---
DATE OF CONSULTATION: 03/11/2019 CONSULTING PHYSICIAN: [facility]. REASON FOR CONSULTATION: ICU admission. HISTORY OF PRESENT ILLNESS: This is a 43-year-old female, retirement patient, who came into the emergency room last night, minimally responsive with extremely elevated BUN and creatinine. She was also hyperkalemic and acidemic. She was treated with medical therapy to lower her bicarbonate before events of being brought to the CCU and undergoing emergent hemodialysis. The patient cannot give me much in the way of history, although she will wake up and give me some indication that she is doing okay. PAST MEDICAL HISTORY: 1. End-stage renal disease, requiring hemodialysis. 2. Coronary artery disease. 3. Neuropathy. 4. Gastroparesis. 5. Anemia. 6. Protein-calorie malnutrition. 7. Diabetes mellitus, type 1. 8. Hypertension. 9. Clostridium difficile colitis. PAST SURGICAL HISTORY: 1. Tubal ligation. 2. Left upper extremity AV shunt placement. 3. I and D for abscess. 4. Surgery for traumatic pneumothorax with chest tube. FAMILY MEDICAL HISTORY: Unremarkable. SOCIAL HISTORY: Nonsmoker. Does not consume alcohol. MEDICATIONS: Prior to admission; 1. Sertraline. 2. Zofran. 3. Levemir. 4. Diamox. 5. Gabapentin. 6. Bentyl. 7. Melatonin. 8. Metoclopramide. 9. Hydralazine. 10. Protonix. 11. Metoprolol. 12. Amlodipine. 13. Renvela. 14. Florastor. 15. Loperamide. 16. Dorzolamide eye drops. 17. Brimonidine eye drops. 18. Timolol eye drops. 19. Prednisolone eye drops. 20. Atropine eye drops. Doses of all these are questionable. REVIEW OF SYSTEMS: Cannot be obtained secondary to the patient's altered mental status. PHYSICAL EXAMINATION: VITAL SIGNS: Temperature 98.2, pulse 75, blood pressure 157/95, and O2 sat 98%. GENERAL: The patient is quietly lying in bed. She is off oxygen. She is in no distress. HEENT: She has multiple macular lesions over her face, which look like either acneiform lesions or excoriations. NECK: Without adenopathy or JVD. LUNGS: Clear to auscultation. CARDIAC: S1 and S2 regular with 3/6 holosystolic murmur. ABDOMEN: Soft, nontender, and nondistended. EXTREMITIES: Left upper extremity thrill at the AV fistula site. No edema. LABORATORY DATA: White blood cell count 7.2, hematocrit 32.5, and platelet count 122. PH of 7.58, pCO2 of 22, PO2 of 92 on room air. Sodium 140, potassium 3.5, chloride 102, CO2 of 25, BUN 46, creatinine 4.0, and glucose 69. ASSESSMENT: 1. Acute on chronic renal failure - appears if she has been under-dialyzed given her level of BUN and creatinine and potassium on admission that has now been rectified after dialysis last night. 2. Acidosis, corrected with dialysis. 3. History of Clostridium difficile colitis. 4. Diabetes mellitus. PLAN: She is improved to the point where she can be transferred out to the floor. She has a DNR order. Palliative Care may need to speak with her if she continues to refuse dialysis. Job ID: [id number]
--- NOTE | 2019-03-11 08:24 | PRG ---
DATE OF SERVICE: 03/11/2019 SUBJECTIVE: Ms. Thao is a 43-year-old female with ESRD, was admitted for mental status change. She was also noted to be hyperkalemic. And for that reason, she underwent emergent hemodialysis yesterday. She was noted during dialysis to have some convulsions. A presumptive seizure disorder was made. CT scan of the brain did not show any acute intracranial abnormality. This morning, she has decreased mentation. OBJECTIVE: VITAL SIGNS: Blood pressure is 157/95, heart rate 75, respiratory rate is 13, and pulse ox 98%. GENERAL: The patient is unresponsive to verbal stimuli. She does have some spontaneous movement. HEENT: She has a pinkish conjunctivae. Anicteric sclerae. No neck mass. No carotid bruits. No JVD. CHEST: No deformities. LUNGS: Clear breath sounds. No wheezing. No crackles. HEART: Normal sinus rhythm. No murmur. No gallops. No rubs. ABDOMEN: Globular, soft, nontender. No masses. EXTREMITIES: No edema. No deformities. MEDICATIONS: Medications of March 11, 2019 were reviewed. LABORATORY DATA: Laboratories of March 11, 2019; white count 7.2, hemoglobin 11, sodium 140, potassium 3.5, chloride is 102, carbon dioxide 25, BUN 26, creatinine 4.01, calcium is 8.9. AST 15, ALT less than 7, albumin 4.2, hemoglobin 11.2. CT scan of the brain, March 10, 2019, no mass, no acute intracranial process. ASSESSMENT AND PLAN: 1. End-stage renal disease, stable. Her BUN and creatinine much improved after her regular dialysis yesterday. No indication for any dialytic intervention. Continue supportive care. Fluid removal only as tolerated. 2. Seizure disorder?-empiric Keppra has been initiated. 3. Metabolic encephalopathy-continue supportive care. CT scan of the brain showed no acute intracranial process. Overall, agree with current management. Job ID: [id number]
[2019-03-11] MEDS ORDERED: Amlodipine 10 MG TAB PO SCH (09:00)
[2019-03-11] MEDS: Pantoprazole 40 MG VIAL IVP SCH (10:54)
[2019-03-11] MEDS: Vancomycin HCl 25 MG/ML Oral PO SCH ×2 (10:54→20:37)
[2019-03-11] MEDS: Heparin 5,000 UNITS/ML VIAL SC SCH ×3 (10:54→20:36)
[2019-03-11] MEDS: Erythromycin Base 0.5% Oint 1 GM TUBE EA EYE SCH ×2 (10:57→20:37)
[2019-03-11] MEDS: Amlodipine 10 MG TAB PO SCH (10:58)
[2019-03-11] MEDS: hydrALAZINE 25 MG TAB PO SCH ×3 (10:59→20:36)
[2019-03-11] MEDS: AcetaZOLAMIDE 250 MG TAB PO SCH (10:59)
[2019-03-11] MEDS: Gabapentin 300 MG CAP PO SCH ×2 (10:59→20:36)
[2019-03-11] MEDS: Insulin Glargine 5 UNITS in Pre-Filled Syringe 1 EACH SC SCH (20:37)
[2019-03-12] MEDS: Dextrose 5 % And 0.9 % NaCl 1,000 ML IV SCH ×2 (03:09→15:48)
--- NOTE | 2019-03-12 06:40 | PDOC.FM ---
- Subjective Subjective: Winsome Thao seen at bedside this morning. She is awake, alert, and answering questions appropriately. She had no acute events overnight and she has no complaints this morning. She denies fever, chills, chest pain, dyspnea, n/v, abdominal pain. Palliative care has been consulted to discuss goals of care with patient. - Objective MAR Reviewed: Yes Vital Signs & Weight: Vital Signs (12 hours) Temp Pulse Resp BP Pulse Ox 03/11/19 20:36 70 03/11/19 20:00 98 03/11/19 19:36 99.8 F H 70 16 157/71 H 97 Weight Admit Weight 32.205 kg Weight 32.5 kg Most Recent Monitor Data Heart Rate from ECG 75 NIBP 169/85 NIBP BP-Mean 113 Respiration from ECG 12 SpO2 99 I&O: 03/10/19 03/11/19 03/12/19 06:59 06:59 06:59 Intake Total 429 475 Output Total 100 1 Balance 329 474 Result Diagrams: 03/13/19 07:21 03/13/19 07:21 Phys Exam - Physical Examination Constitutional: NAD HEENT: moist MMs, sclera anicteric Neck: no JVD Respiratory: no wheezing, no rales, no rhonchi, clear to auscultation bilateral Cardiovascular: RRR 2/6 aster Gastrointestinal: soft, non-tender, no distention Musculoskeletal: no edema, pulses present Psychiatric: normal affect Deviation from normal: A&O X2 Skin: no rash Dx/Plan (1) Acute metabolic encephalopathy Code(s): G93.41 - METABOLIC ENCEPHALOPATHY Status: Acute (2) Seizure-like activity Code(s): R56.9 - UNSPECIFIED CONVULSIONS Status: Acute (3) Anemia of renal disease Code(s): D63.1 - ANEMIA IN CHRONIC KIDNEY DISEASE Status: Chronic (4) Diabetes type 1, uncontrolled Code(s): E10.65 - TYPE 1 DIABETES MELLITUS WITH HYPERGLYCEMIA Status: Chronic (5) Dyslipidemia Code(s): E78.5 - HYPERLIPIDEMIA, UNSPECIFIED Status: Chronic (6) ESRD (end stage renal disease) on dialysis Code(s): N18.6 - END STAGE RENAL DISEASE; Z99.2 - DEPENDENCE ON RENAL DIALYSIS Status: Chronic (7) Hypertension Code(s): I10 - ESSENTIAL (PRIMARY) HYPERTENSION Status: Chronic (8) Protein-calorie malnutrition, severe Code(s): E43 - UNSPECIFIED SEVERE PROTEIN-CALORIE MALNUTRITION Status: Chronic (9) Secondary hyperparathyroidism of renal origin Code(s): N25.81 - SECONDARY HYPERPARATHYROIDISM OF RENAL ORIGIN Status: Chronic - Plan Plan: Metabolic encephalopathy: significantly improved - admitted to IM, emergently dialyzed, moved to medical floor on 03/11 - s/p calcium gluconate, albuterol, sodium bicarbonate. - K on admission 7.8 -> 03/11 3.8 - pt mental status baseline unknown will confirm with family and NH staff - Initially may have been DKA component - Was having seizure like movements on started on keppra 03/11 - Palliative care has been consulted to discuss goals of care/hospice ESRD on dialysis MWF - last dialysis was on 03/03 due to patient refusal - provide emergent dialysis on 03/10 - nephro consulted from the ED Metabolic Acidosis - pH 7.07 -> 7.14 -> 7.58 -> 7.45 - pH of 7.58 after bicarbonate - Resolved Clostridium difficile infection, present on admission - treated for 20/21 days with oral vancomycin - continue oral vancomycin - enteric precautions - repeat c diff cx pending GERD - continue home meds - continue to monitor for symptoms Insomnia - continue monitor - provide meds prn Chronic Anemia - stable likely due to ESKD - continue to monitor DM type 2 - insulin sliding scale, pt reportedly non compliant w/ insulin regimen - currently NPO, advance diet as tolerated - accuchecks Hx of Glaucoma - aware, continue current home meds Addendum - Attending - Attending Attestation Date/Time: 03/12/19 7743 I personally evaluated the patient and discussed the management with Dr. Chi I agree with the History, Examination, Assessment and Plan documented above with any addition or exceptions noted below. Unfortunate 43 yo female with past medical history of uncontrolled DM with ESRD admitted for severe metabolic acidosis HD#2 Patient awake and responsive today. Denies pain or discomfort. Tolerating PO well. VS, Labs, and Imaging reviewed. Agree with PE as documented. 1. Severe metabolic and respiratory acidosis: Resolved. 2. ESRD on HD: Continue HD on MWF. Patient request continued care and treatment. Concerned patient is refusing care at [facility] due to metabolic encephalopathy. Expressed full wishes today to continue care. Nephro following. 3. Encephalopathy: Resolved but patient appears to have a very fine balance between normal cognition and becoming altered due to the multiple possible etiologies. Need to have plan of care and living will completed with patient during times of lucidness. Will discuss with palliative and family. 4. Chronic glaucoma and diabetic retinopathy 5. HTN: Monitor closely. Adjust home meds as needed. 6. DM: Continue insulin therapy. Cover with SSI as needed. Adjust basal insulin as needed. Avoid ketosis. 7. Seizure-like activity: Continue keppra. Patient with multiple etiologies that lower seizure threshold. Neuro to follow outpatient. Case discussed. Dispo: Continue to monitor on medical. Mallika
[2019-03-12 07:05] LABS: #Basophils 0.1 thou/uL (0.0-0.2); #Eosinphils 0.3 thou/uL (0.0-0.7); #Lymphocytes 1.2 thou/uL (1.20-3.40); #Monocytes 0.3 thou/uL (0.11-0.59); #Neutrophils 2.3 thou/uL (1.40-6.50); %Basophils 1.3 % (0.0-1.0); %Lymphocytes 28.6 % (21.0-51.0); %Monocytes 8.3 % (0.0-10.0); %Neutrophils 54.8 % (42.0-75.0); Hemoglobin 10.1 g/dL (12.0-16.0); Mean Corpuscular Hemoglobin 28.6 pg (27.0-31.0); Mean Corpuscular Volume 86.6 fL (78.0-98.0); Mean Platelet Volume 11.3 fL (7.4-10.4); Platelet Count 98 thou/uL (130-400); RBC Distribution Width 15.6 % (11.5-14.5); Red Blood Cell (RBC) Count 3.54 mill/uL (4.20-5.40); White Blood Cell (WBC) Count 4.1 thou/uL (4.8-10.8)
[2019-03-12 07:11] LABS: Anion Gap 16 mmol/L (10-20); BUN (Urea Nitrogen) 31 mg/dL (7.0-18.7); Calc. Creatinine Clearance 7 mL/min (70-130); Calcium 8.2 mg/dL (7.8-10.44); Carbon Dioxide 22 mmol/L (22-29); Chloride 105 mmol/L (98-107); Estimated GFR-MDRD 9; Glucose 208 mg/dL (70-105); Sodium 139 mmol/L (136-145)
[2019-03-12] MEDS ORDERED: Epoetin (ESRD) 20,000 UNITS/ML SC SCH (08:45)
--- NOTE | 2019-03-12 10:04 | PRG ---
DATE OF SERVICE: 03/12/2019 SUBJECTIVE: Ms. Thao is a 43-year-old female with ESRD and was admitted for mental status change. She was also noted to be hyperkalemic at that time. The consideration for the mental status change was from uremia. She underwent hemodialysis on admission. This morning, she is noted to be more awake and alert. No new complaints. No chest pain or shortness of breath. OBJECTIVE: VITAL SIGNS: Blood pressure is noted at 157/71, heart rate 70, respiratory rate 16, temperature 99.8, and pulse ox 97%. GENERAL: Noted to be awake, alert, comfortable, not in distress. SKIN: Adequate turgor. HEENT: Pinkish conjunctivae. Anicteric sclerae. NECK: No neck mass. No carotid bruits. No JVD. CHEST: No deformities. LUNGS: Clear breath sounds. HEART: Normal sinus rhythm. No murmur, no gallops, no Rubs. ABDOMEN: Globular, soft, nontender. No masses. EXTREMITIES: No edema. No deformities. MEDICATIONS: Medications of March 12, 2019, reviewed. LABORATORIES: Laboratories of March 12, 2019; white count 4.1, hemoglobin 10.1. Sodium 139, potassium 4, chloride 105, carbon dioxide 22, BUN 31, creatinine 5.25. ASSESSMENT AND PLAN: 1. Decreased mentation-secondary to metabolic encephalopathy-much improved. 2. Convulsion/seizure-like activity-empiric treatment with Keppra. 3. End-stage renal disease, stable. We will continue current hemodialysis regimen. Again, fluid removal only as tolerated by the patient. 4. Type 1 diabetes mellitus-continuing monitoring and management. 5. Chronic anemia-currently hemoglobin is noted at 10.1. My plan is to restart her back on her Epogen at 7500 units subcu q.week, if this has not been started yet. Overall, agree with current management. Job ID: [id number]
[2019-03-12] MEDS: Erythromycin Base 0.5% Oint 1 GM TUBE EA EYE SCH ×2 (10:33→20:37)
[2019-03-12] MEDS: Heparin 5,000 UNITS/ML VIAL SC SCH ×3 (10:34→20:38)
[2019-03-12] MEDS: hydrALAZINE 25 MG TAB PO SCH ×3 (10:34→20:36)
[2019-03-12] MEDS: Gabapentin 300 MG CAP PO SCH ×2 (10:34→20:36)
[2019-03-12] MEDS ORDERED: EPOETIN ALFA-EPBX (ESRD) 10,000 UNIT/ML VIAL SC SCH (12:00)
[2019-03-12] MEDS: Amlodipine 10 MG TAB PO SCH (13:57)
[2019-03-12] MEDS: Pantoprazole 40 MG VIAL IVP SCH (13:58)
[2019-03-12] MEDS: AcetaZOLAMIDE 250 MG TAB PO SCH (13:58)
[2019-03-12] MEDS ORDERED: EPOETIN ALFA-EPBX (ESRD) 4,000 UNIT/ML VIAL SC SCH (16:00)
[2019-03-12] MEDS: Insulin Glargine 5 UNITS in Pre-Filled Syringe 1 EACH SC SCH (19:32)
--- NOTE | 2019-03-13 06:24 | PDOC.FM ---
- Subjective Subjective: Winsome Thao seen at bedside this morning. She has no complaints this morning, she had no acute events overnight. States that she is back to her baseline mental status and feeling much better. States that she is ready to go home to the [place] and continue regularly scheduled HD. Dr. Arteaga was consulted yesterday and recommended that patient continue Keppra and follow up with Neurology as an outpatient. She denies fever, chills, chest pain, dyspnea, n/v. - Objective MAR Reviewed: Yes Vital Signs & Weight: Vital Signs (12 hours) Temp Pulse Resp BP Pulse Ox 03/12/19 22:30 155/72 H 03/12/19 20:36 63 03/12/19 19:20 97.5 F L 63 18 198/77 H 97 Weight Admit Weight 32.205 kg Weight 40.415 kg Most Recent Monitor Data Heart Rate from ECG 75 NIBP 169/85 NIBP BP-Mean 113 Respiration from ECG 12 SpO2 99 I&O: 03/11/19 03/12/19 03/13/19 06:59 06:59 06:59 Intake Total 213 480 1466 Output Total 100 1 1000 Balance 329 474 170 Result Diagrams: 03/13/19 07:21 03/13/19 07:21 Phys Exam - Physical Examination Constitutional: NAD HEENT: moist MMs, sclera anicteric Neck: supple, full ROM Respiratory: no wheezing, no rales, no rhonchi, clear to auscultation bilateral Cardiovascular: RRR, no significant murmur Gastrointestinal: soft, non-tender, no distention Musculoskeletal: no edema, pulses present Neurological: non-focal, normal sensation b/l AKAs Psychiatric: normal affect, A&O x 3 Skin: no rash, cap refill <2 seconds Dx/Plan (1) Acute metabolic encephalopathy Code(s): G93.41 - METABOLIC ENCEPHALOPATHY Status: Acute (2) Seizure-like activity Code(s): R56.9 - UNSPECIFIED CONVULSIONS Status: Acute (3) Anemia of renal disease Code(s): D63.1 - ANEMIA IN CHRONIC KIDNEY DISEASE Status: Chronic (4) Diabetes type 1, uncontrolled Code(s): E10.65 - TYPE 1 DIABETES MELLITUS WITH HYPERGLYCEMIA Status: Chronic (5) Dyslipidemia Code(s): E78.5 - HYPERLIPIDEMIA, UNSPECIFIED Status: Chronic (6) ESRD (end stage renal disease) on dialysis Code(s): N18.6 - END STAGE RENAL DISEASE; Z99.2 - DEPENDENCE ON RENAL DIALYSIS Status: Chronic (7) Hypertension Code(s): I10 - ESSENTIAL (PRIMARY) HYPERTENSION Status: Chronic (8) Protein-calorie malnutrition, severe Code(s): E43 - UNSPECIFIED SEVERE PROTEIN-CALORIE MALNUTRITION Status: Chronic (9) Secondary hyperparathyroidism of renal origin Code(s): N25.81 - SECONDARY HYPERPARATHYROIDISM OF RENAL ORIGIN Status: Chronic - Plan Plan: Metabolic encephalopathy: significantly improved - admitted to IMCU, emergently dialyzed, moved to medical floor on 03/11 - s/p calcium gluconate, albuterol, sodium bicarbonate. - K on admission 7.8 -> 03/11 3.8 - Initially may have been DKA component - Was having seizure like movements on started on keppra 03/11, consulted neurology who recommended continuing Keppra and outpatient f/u - Palliative care has been consulted to discuss goals of care/hospice - mental status significantly improved - Plan to discharge today, will go home on Keppra and continue MWF HD ESRD on dialysis MWF - last dialysis was on 03/03 due to patient refusal - provide emergent dialysis on 03/10 - nephro consulted from the ED Metabolic Acidosis - pH 7.07 -> 7.14 -> 7.58 -> 7.45 - pH of 7.58 after bicarbonate - Resolved Clostridium difficile infection, present on admission - treated for 21/ days with oral vancomycin - enteric precautions - repeat c diff cx pending GERD - continue home meds - continue to monitor for symptoms Insomnia - continue monitor - provide meds prn Chronic Anemia - stable likely due to ESKD - continue to monitor DM type 2 - insulin sliding scale, pt reportedly non compliant w/ insulin regimen - currently NPO, advance diet as tolerated - accuchecks Hx of Glaucoma - aware, continue current home meds Addendum - Attending - Attending Attestation Date/Time: 03/13/19 7940 I personally evaluated the patient and discussed the management with Dr. Chi I agree with the History, Examination, Assessment and Plan documented above with any addition or exceptions noted below. Unfortunate 43 yo female with past medical history of uncontrolled DM with ESRD admitted for severe metabolic acidosis HD#3 No complaints today. Reports feeling well. VS, Labs, and Imaging reviewed. Agree with PE as documented. 1. Severe metabolic and respiratory acidosis: Resolved. 2. ESRD on HD: Continue HD on MWF. Nephro following. 3. Encephalopathy: Resolved but patient appears to have a very fine balance between normal cognition and becoming altered due to the multiple possible etiologies. Need to have plan of care and living will completed with patient during times of lucidness. Patient expressed wish to continue care and medical treatment. 4. Chronic glaucoma and diabetic retinopathy 5. HTN: Monitor closely. Adjust home meds as needed. 6. DM: Continue insulin therapy. Cover with SSI as needed. Adjust basal insulin as needed. Avoid ketosis. 7. Seizure-like activity: Continue keppra. Patient with multiple etiologies that lower seizure threshold. Neuro to follow outpatient. Case discussed. 8. C. Diff infection: Completed treatment. Has stool transplant scheduled next week. Dispo: Ok to transfer back to [place]. Need to complete living well and MPOA. Plan of care needs to be discussed with NH staff. Mallika
[2019-03-13 07:32] LABS: #Basophils 0.1 thou/uL (0.0-0.2); #Eosinphils 0.8 thou/uL (0.0-0.7); #Lymphocytes 1.4 thou/uL (1.20-3.40); #Monocytes 0.3 thou/uL (0.11-0.59); #Neutrophils 2.4 thou/uL (1.40-6.50); %Basophils 1.7 % (0.0-1.0); %Eosinophils 15.3 % (0.0-10.0); %Lymphocytes 28.8 % (21.0-51.0); %Monocytes 6.6 % (0.0-10.0); %Neutrophils 47.7 % (42.0-75.0); Hemoglobin 11.2 g/dL (12.0-16.0); Mean Corpuscular HGB CONC 32.2 g/dL (32.0-36.0); Mean Corpuscular Hemoglobin 27.9 pg (27.0-31.0); Mean Corpuscular Volume 86.8 fL (78.0-98.0); Mean Platelet Volume 10.8 fL (7.4-10.4); Platelet Count 95 thou/uL (130-400); RBC Distribution Width 15.3 % (11.5-14.5)
[2019-03-13 07:52] LABS: Anion Gap 18 mmol/L (10-20); BUN (Urea Nitrogen) 10 mg/dL (7.0-18.7); Calc. Creatinine Clearance 19 mL/min (70-130); Calcium 8.9 mg/dL (7.8-10.44); Carbon Dioxide 24 mmol/L (22-29); Chloride 100 mmol/L (98-107); Estimated GFR-MDRD 21; Glucose 99 mg/dL (70-105); Potassium 3.6 mmol/L (3.5-5.1); Sodium 138 mmol/L (136-145)
[2019-03-13 08:11] VITALS: BP 184/76; TEMP 98.3
[2019-03-13] MEDS: Pantoprazole 40 MG VIAL IVP SCH (08:27)
[2019-03-13] MEDS: hydrALAZINE 25 MG TAB PO SCH (08:27)
[2019-03-13] MEDS: Gabapentin 300 MG CAP PO SCH (08:27)
[2019-03-13] MEDS: AcetaZOLAMIDE 250 MG TAB PO SCH (08:28)
[2019-03-13] MEDS: Heparin 5,000 UNITS/ML VIAL SC SCH (08:28)
[2019-03-13] MEDS: Amlodipine 10 MG TAB PO SCH (08:28)
[2019-03-13] MEDS: Erythromycin Base 0.5% Oint 1 GM TUBE EA EYE SCH (08:29)
--- NOTE | 2019-03-13 08:59 | PRG ---
DATE OF SERVICE: 03/13/2019 SUBJECTIVE: Ms. Thao is a 43-year-old female, who has a history of ESRD and was initially admitted due to mental status change with hyperkalemia. She has also had a ? of seizure episode. This morning, she is feeling better. Denies any chest pain or shortness of breath. Metabolic abnormalities are also much improved with dialysis. She tolerated her dialysis yesterday without any problem. No new complaints today. No chest pain or shortness of breath. OBJECTIVE: VITAL SIGNS: Blood pressure is 184/76, heart rate 61, respiratory rate 16, temperature 98.3, and pulse ox 95%. GENERAL: Awake, alert, comfortable, not in distress. SKIN: Adequate turgor. HEENT: She has a pinkish conjunctivae. Anicteric sclerae. NECK: No neck mass. No carotid bruits. No JVD. Decreased visual acuity. LUNGS: Clear breath sounds. No wheezing. No crackles. HEART: Normal sinus rhythm. No murmur. No gallops. No rubs. ABDOMEN: Globular, soft, and nontender. No masses. EXTREMITIES: No edema. No deformities. MEDICATIONS: Of March 13, 2019, were reviewed. LABORATORY DATA: Of March 13, 2019; white count 5, hemoglobin 11.2. Sodium 138, potassium 3.6, chloride 100, carbon dioxide 24, BUN 10, creatinine 2.5, glucose 99, calcium 8.9. ASSESSMENT AND PLAN: 1. Decreased mentation/metabolic encephalopathy-much improved mentation with dialysis. Continue supportive care. 2. Hyperkalemia, resolved with dialysis. 3. End-stage renal disease, stable, tolerating current hemodialysis regimen. We will continue Sunday, Sunday, and Sunday dialysis. Please note that the patient's bicarbonate is much improved. We will discontinue acetazolamide. 4. Agree with current management. From a renal point of view, this patient can be discharge any time. Job ID: [id number]
--- NOTE | 2019-03-13 14:19 | DIS ---
DATE OF ADMISSION: 03/10/2019 DATE OF DISCHARGE: 03/13/2019 RESIDENT: Anthony Chi MD ADMITTING ATTENDING: Benny Esparza MD DISCHARGE ATTENDING: Carmen Shaw MD PROCEDURES PERFORMED: 1. Chest x-ray on 03/10/2019, impression, cardiomegaly. No acute process. 2. Brain CT on 03/10/2019, impression, removal of right optic lobe and markedly abnormal left optic lobe with abnormal increased attenuation density within the optic lobe, both of which are new from 2016. No acute intracranial process. No mass or bleed. 3. Blood culture x2 from 03/10/2019, final, no growth for 48 hours. 4. Urine culture from 03/10/2019, final, presumptive Proteus mirabilis. PROBLEM LIST: Acute metabolic encephalopathy, likely secondary to uremia. SECONDARY DIAGNOSES: 1. Hyperkalemia. 2. Metabolic acidosis. 3. Seizure-like activity. 4. History of recent Clostridium difficile colitis. DISCHARGE MEDICATIONS: Resume home medications includin. Hydralazine 25 mg p.o. t.i.d. 2. Pantoprazole 40 mg p.o. daily. 3. Zofran 4 mg p.o. q.6 hours p.r.n. 4. Reglan 5 mg p.o. q.8 hours p.r.n. 5. Amlodipine 10 mg p.o. daily. 6. Diamox 250 mg p.o. daily. 7. Atropine 1 drop left eye b.i.d. 8. Brimonidine 1 drop left eye t.i.d. 9. Bentyl 10 mg p.o. q.i.d. p.r.n. 10. Dorzolamide HCL 1 drop left eye t.i.d. 11. Gabapentin 300 mg p.o. b.i.d. 12. Levemir 5 units subcu at bedtime. 13. Loperamide 1 tab p.o. p.r.n. 14. Melatonin 10 mg p.o. at bedtime. 15. Metoprolol succinate 50 mg p.o. daily. 16. Prednisolone acetate one drop left eye t.i.d. 17. Florastor 250 mg p.o. b.i.d. 18. Sertraline 100 mg p.o. daily. 19. Renvela one packet p.o. t.i.d. with meals. 20. Timolol maleate one drop left eye t.i.d. New home medications include: 1. Retacrit 7500 units subcu q.7 days. 2. Keppra 500 mg p.o. b.i.d. HISTORY OF PRESENT ILLNESS/HOSPITAL COURSE: Winsome Thao is a 43-year-old female with past medical history of coronary artery disease, neuropathy, gastroparesis, chronic anemia, hypertension, end-stage renal disease on Sunday, Sunday, Sunday dialysis, type 1 diabetes mellitus and recent C diff colitis, on treatment, presented to the ED on 03/10/2019 from [facility] with complaint of altered mental status reportedly for 2 to 3 days. History provided from care home. The patient is being treated for C diff and is on day of vancomycin. On presentation, she was minimally responsive A and O x1. Oriented only to person. She apparently missed one of her hemodialysis session. When she arrived to the ED, she was altered and hypotensive, and she was treated with 750 mL of sodium chloride. Blood pressure stabilized. The patient was discovered to be hyperkalemic and treated with albuterol sulfate nebulizer, calcium chloride, dextrose and insulin as well as sodium bicarbonate. She was also bradycardic and treated with atropine 0.5 mg. Initial labs were white blood cell count 7.2, hemoglobin 11.0, hematocrit 32.5, and platelets 122. Sodium 140, potassium 3.5, chloride 102, bicarb 25, BUN 26, creatinine 4.01, and glucose 69. Initial chest x-ray was as above. The patient was admitted for metabolic encephalopathy, presumed to be due to uremia. She got emergent dialysis. The patient slowly improved from mental status standpoint after dialysis. There was apparently some seizure-like activity on 03/11/2018. The patient was started on empiric Keppra. Her mental status continued to improve significantly thereafter. Neurology was consulted on 03/12/2019 and recommended that she continue Keppra as an outpatient and follow up after discharge. The patient completed treatment for C diff colitis while she was in the hospital and never had any episodes of diarrhea. She was cleared for discharge on 03/13/2019 with instructions to return to the care home. DISPOSITION: Stable. The patient should do well. She continues regularly scheduled hemodialysis and gets routine followup with the care home. DISCHARGE INSTRUCTIONS: 1. Location: [facility]. 2. Diet: Renal diet. 3. Activity: As tolerated. 4. Followup: Follow up with Dr. Thompson at [facility]. Job ID: [id number]
== END 2019-03-13 13:54 | DRG 640 ==
LOC: ERS 12:16 → CCU 15:38 → T4-B 03-11 11:57
PROVIDERS: ADMIT Emergency Medicine; ATTEND Emergency Medicine
PROC: 5A1D70Z Performance of Urinary Filtration, Intermittent, Less than 6 Hours Per Day (ICD-10-PCS; principal; 2019-03-10)
PROC: 5A1D70Z Performance of Urinary Filtration, Intermittent, Less than 6 Hours Per Day (ICD-10-PCS; 2019-03-12)
DX: E87.5 Hyperkalemia (principal); N18.6 End stage renal disease; G93.41 Metabolic encephalopathy; E43 Unspecified severe protein-calorie malnutrition; A04.72 Enterocolitis due to Clostridium difficile, not specified as recurrent; N39.0 Urinary tract infection, site not specified; I12.0 Hypertensive chronic kidney disease with stage 5 chronic kidney disease or end stage renal disease; N25.81 Secondary hyperparathyroidism of renal origin; Z68.1 Body mass index [BMI] 19.9 or less, adult; N17.9 Acute kidney failure, unspecified; I25.10 Atherosclerotic heart disease of native coronary artery without angina pectoris; Z99.2 Dependence on renal dialysis; E10.40 Type 1 diabetes mellitus with diabetic neuropathy, unspecified; E10.22 Type 1 diabetes mellitus with diabetic chronic kidney disease; G47.00 Insomnia, unspecified; K21.9 Gastro-esophageal reflux disease without esophagitis; D63.1 Anemia in chronic kidney disease; F32.9 Major depressive disorder, single episode, unspecified; E10.65 Type 1 diabetes mellitus with hyperglycemia; E10.43 Type 1 diabetes mellitus with diabetic autonomic (poly)neuropathy; K31.84 Gastroparesis; H10.9 Unspecified conjunctivitis; H40.9 Unspecified glaucoma; R56.9 Unspecified convulsions; E78.5 Hyperlipidemia, unspecified; E10.319 Type 1 diabetes mellitus with unspecified diabetic retinopathy without macular edema; E10.21 Type 1 diabetes mellitus with diabetic nephropathy
CPT/HCPCS: 36415; 36416; 51701; 70450; 71045; 80048; 80053; 80307; 81003; 81015; 82010; 82140; 82805; 83735; 84100; 84145; 85025; 87040; 87086; 87340; 93005; 94644; 96365; 96367; 96375; 96376; A4353; C9113; J0360; J0461; J1644; J1815; J1825; J1953; J2543; J3490; J7611; Q0162; Q5105

== ENCOUNTER 2019-03-31 10:37 | Day surgery (SDC) | payer OTHER ==
[2019-03-28 19:35] VITALS: BMI 13.9
[2019-03-31] MEDS ORDERED: Insulin Regular 300 UNITS/3 ML VIAL ONE (11:12)
[2019-03-31] MEDS ORDERED: Lidocaine 1% PF 5 ML VIAL ONE (12:08)
[2019-03-31] MEDS ORDERED: PROPOFOL 200 MG/20 ML VIAL ONE (12:08)
[2019-03-31] MEDS ORDERED: Loperamide HCl 2 MG CAP PO SCH (13:15)
--- NOTE | 2019-03-31 18:52 | OP ---
DATE OF PROCEDURE: 03/31/2019 ASSISTANCE SURGEON: None. PROCEDURES PERFORMED: Colonoscopy with fecal microbiota transplantation. INDICATION: Recurrent C. difficile infection. The patient has been treated with appropriate antibiotics for at least 7 rounds in the past, it appears. MEDICATIONS: See Anesthesia record. FINDINGS: After discussion of the risks, benefits, and alternatives of the procedure, informed consent was obtained and witnessed. Pre-endoscopic cardiopulmonary examination was satisfactory. Time-out was performed before sedation was achieved. Sedation was achieved with Anesthesia assistance in the endoscopy unit. Digital rectal exam was performed, which was unremarkable. A Pentax adult colonoscope was inserted into the anus and passed forward to the cecum in the usual fashion. The cecal base was identified by the appendiceal orifice as well as the ileocecal valve. The terminal ileum was intubated and the ileal mucosa appeared normal. Examination of the entire colon was performed. The colonic mucosa appears normal. There is some mild patchy friability, but no evidence of any significant inflammation. No erosions, ulcerations, or pseudomembranes. At this point, we successfully instilled 250 mL of donor stool into the terminal ileum, cecum, and ascending colon, without any difficulty. Once the donor stool was instilled, the colonoscope was completely withdrawn and the procedure complete. The patient allowed to recover. The patient tolerated the procedure well. There were no immediate postprocedure complications. IMPRESSION: 1. Normal colonoscopy to the terminal ileum. 2. Successful fecal microbiota transplantation, with 250 mL of donor stool successfully instilled into the terminal ileum and right colon. RECOMMENDATIONS: 1. Give imodium 2 mg p.o. now. 2. Holding stool as long as possible. 3. Stop the oral vancomycin. 4. Continue with the Florastor. 5. Follow up in GI clinic in the next 2 to 3 weeks. 6. No need to recheck the stool for C. difficile, if the patient's symptoms have improved. Job ID: [id number]
== END 2019-03-31 14:05 | disposition home or self-care (01) ==
LOC: SDC 10:37
PROVIDERS: ATTEND Internal Medicine
PROC: 3E0H8GC Introduction of Other Therapeutic Substance into Lower GI, Via Natural or Artificial Opening Endoscopic (ICD-10-PCS; principal; 2019-03-31)
DX: A04.71 Enterocolitis due to Clostridium difficile, recurrent (principal)
CPT/HCPCS: 36416; J1815

== ENCOUNTER 2019-05-14 16:14 | Observation (INO) | payer OTHER ==
--- NOTE | 2019-05-14 17:19 | RAD ---
XR Chest 1 View Portable HISTORY: Altered mental status. COMPARISON: 03/10/2019 study. FINDINGS: Heart size is enlarged pulmonary vessels are engorged some increased parahilar lung marking s suggesting element of edema. Parenchyma changes in the right midlung field are stable and may represent scar. Surgical clips are seen in the left axilla IMPRESSION: Cardiomegaly with increased parahilar markings suggesting element of the pulmonary edema.
[2019-05-14 17:24] LABS: #Eosinphils 0.5 thou/uL (0.0-0.7); #Monocytes 0.3 thou/uL (0.11-0.59); #Neutrophils 4.1 thou/uL (1.40-6.50); %Basophils 0.7 % (0.0-1.0); %Eosinophils 7.7 % (0.0-10.0); %Lymphocytes 17.3 % (21.0-51.0); %Monocytes 5.2 % (0.0-10.0); %Neutrophils 69.1 % (42.0-75.0); Hemoglobin 11.3 g/dL (12.0-16.0); Mean Corpuscular HGB CONC 33.3 g/dL (32.0-36.0); Mean Corpuscular Hemoglobin 27.3 pg (27.0-31.0); Mean Corpuscular Volume 82.2 fL (78.0-98.0); Mean Platelet Volume 11.2 fL (7.4-10.4); Platelet Count 112 thou/uL (130-400); RBC Distribution Width 16.5 % (11.5-14.5); Red Blood Cell (RBC) Count 4.12 mill/uL (4.20-5.40); White Blood Cell (WBC) Count 5.9 thou/uL (4.8-10.8)
[2019-05-14 17:44] LABS: ALT (SGPT) 7 U/L (8-55); AST (SGOT) 21 U/L (5-34); Albumin 4.3 g/dL (3.5-5.0); Alkaline Phosphatase 451 U/L (40-150); Anion Gap 22 mmol/L (10-20); BUN (Urea Nitrogen) 32 mg/dL (7.0-18.7); Bilirubin, Total 0.8 mg/dL (0.2-1.2); Calc. Creatinine Clearance 0 mL/min (70-130); Calcium 9.1 mg/dL (7.8-10.44); Carbon Dioxide 25 mmol/L (22-29); Chloride 96 mmol/L (98-107); Estimated GFR-MDRD 13; Globulin 2.4 g/dL (2.4-3.5); Glucose 168 mg/dL (70-105); Potassium 3.5 mmol/L (3.5-5.1); Protein, Total 6.7 g/dL (6.0-8.3); Sodium 139 mmol/L (136-145)
[2019-05-14 17:46] LABS: Acetaminophen Less than 6.0 mcg/mL (10.0-30.0); Alcohol Less than 10 mg/dL (Less than 10); Salicylate Less than 8.0 mg/dL (15.0-30.0)
--- NOTE | 2019-05-14 19:29 | CT ---
CT BRAIN NONCONTRAST: 05/14/19 HISTORY: 43-year-old female with altered mental status, unresponsive. COMPARISON: 03/10/19. FINDINGS: There is no midline shift or any other mass effect. There is no evidence of acute intracranial hemor rhage, large cortical infarct, obstructive hydrocephalus, or extraaxial fluid collection. The calvar ium is intact. Again noted is the soft tissue density mass within the mildly misshapen left globe, co ntaining at least two tiny calcific densities. The right globe is absent, and there is irregular soft tissue density at the anterior aspect of the right orbit, and a new finding of a small amount of gas within that soft tissue density material. The visualized paranasal sinuses and the bilateral tympano mastoid cavities, are grossly clear. No other interval change. IMPRESSION: 1. No acute intracranial findings. 2. Status post right orbital enucleation. 3. New finding of tiny amount of gas within the soft tissues of the enucleated right orbit. 4. Abnormal left globe with intraocular soft tissue density mass. This is unchanged since 9. albino [] POS: TPC
[2019-05-15 09:34] VITALS: BMI 14.7
--- NOTE | 2019-05-15 10:34 | CON ---
DATE OF CONSULTATION: HISTORY OF PRESENT ILLNESS: Ms. Thao is a 43-year-old female with ESRD, on maintenance hemodialysis. She was admitted for mental status change. She was admitted for further observation. A CT scan of the brain was done on May 14, 2019, and showed no acute intracranial findings. 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 This morning, she is more awake. REVIEW OF SYSTEMS: Positive for mental status change. No nausea. No vomiting. No diarrhea. No constipation. Decreased visual activity. No productive cough. No fever or chills. No syncopal episode. No diarrhea. No hematochezia. No melena. No dysuria. Appetite and energy level are fair. No shortness of breath. No chest pain. MEDICATIONS: Based on the home med list, she is on; 1. Keppra 500 mg p.o. b.i.d. 2. Hydralazine 25 mg tablet t.i.d. 3. Timolol eye drops, left eye, t.i.d. 4. Renvela powder 2 packets t.i.d. with meals. 5. Sertraline 50 mg tablet daily. 6. Florastor 1 capsule p.o. b.i.d. 7. Protonix 40 mg daily. 8. Metoprolol succinate 50 mg tablet daily. 9. Reglan 5 mg q.8 p.r.n. 10. Gabapentin 300 mg 1 tablet at bedtime. 11. Amlodipine 10 mg daily. 12. Diamox 1 tablet daily. PAST MEDICAL HISTORY: 1. ESRD from diabetic nephropathy, type 2 diabetes mellitus, diabetic retinopathy. 2. Hypertension. 3. History of noncompliance. 4. Diabetic gastroparesis. PAST SURGICAL HISTORY: Status post right eye enucleation, status post AV fistula placement, status post cuffed dialysis catheter placement, status post bilateral tubal ligation. SOCIAL HISTORY: The patient is in a residential in [place]. Two children. No alcohol. No IV drug use. Status post blood transfusion. 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 Education, 9th grade. ALLERGIES: NONE. TRAUMA: None. IMMUNIZATION: Up-to-date. HOSPITALIZATIONS: Please see past medical history. FAMILY HISTORY: No family history of ESRD. PHYSICAL EXAMINATION: VITAL SIGNS: Blood pressure is noted at 110/70, heart rate 70. The rechecked blood pressure shows a BP of 184/76. GENERAL: The patient is awake, comfortable, not in overt distress. SKIN: Adequate turgor. HEENT: Slightly pale conjunctivae. Anicteric sclerae. No neck mass. No carotid bruits. No JVD. Positive for right eye enucleation, left eye decreased visual activity. LUNGS: Clear breath sounds. HEART: Normal sinus rhythm. No murmurs, gallops, or rubs. ABDOMEN: Globular, soft, nontender. No masses. EXTREMITIES: No edema. No deformities. NEUROLOGICAL: Awake. Follows simple commands. No tremors. No asterixis. LABORATORY DATA: On May 14, 2019, white count 5.9, hemoglobin 11.3. Sodium 139, potassium 3.5, chloride 96, carbon dioxide 25, BUN 32, creatinine 3.92, glucose 168. ASSESSMENT AND PLAN: 1. Decreased mentation - most likely metabolic encephalopathy. CAT scan was negative. This morning, mentation is much improved. Continue supportive care. 2. End-stage renal disease, stable. We will continue current hemodialysis regimen. No indication for an emergent dialysis. Regular dialysis days, Sunday, Sunday, and Sunday. Please note her Kt/V suggests she is adequately dialyzed with the current dialysis regimen. Overall, agree with current management. 3. Hypertension. Continue current blood pressure medications. Job ID: [id number]
[2019-05-15 15:41] VITALS: BP 181/81; TEMP 98.6
--- NOTE | 2019-05-15 20:04 | HP ---
PRIMARY CARE DOCTOR: The patient goes to [facility]. CODE STATUS: Full code. TIME OF EVALUATION: 8:20 p.m. CHIEF COMPLAINT FOR THIS PATIENT: Unresponsiveness. HISTORY OF PRESENT ILLNESS: This is a 43-year-old female patient with past medical history of diabetes, neuropathy, gastroparesis, chronic anemia, hypertension, end-stage renal disease on hemodialysis Sunday, Sunday, and Sunday, history of C. diff, came to the hospital after having change in mental status. No clear triggers. No alleviating factors. She was getting hemodialysis. For this reason, the hemodialysis had been stopped 30 minutes before completion. Symptoms started suddenly with no clear triggers. No alleviating factors. By the time of my examination, the patient is very confused, not very cooperative to my interview due to change in mental status. Symptoms are severe. However, it has been reported now that she responds the few questions office. The mentation is better than the initial one. REVIEW OF SYSTEMS: Unable to obtain. The patient uncooperative to interview. PAST MEDICAL HISTORY: As mentioned in the HPI. PAST SURGICAL HISTORY: Tubal ligation, hemodialysis shunt to the left upper extremity, I and D for abscess, surgery for traumatic pneumothorax with chest tube. PSYCHIATRIC HISTORY: Anxiety and depression. SOCIAL HISTORY: No alcohol. No drugs. No smoking history. FAMILY HISTORY: Unable to obtain. The patient is not cooperative to interview. KNOWN ALLERGIES: No known drug allergies. REPORTED MEDICATIONS: 1. Atropine. 2. Prednisone. 3. Timolol. 4. Brimonidine. 5. Dorzolamide. 6. Florastor. 7. Renvela. 8. Acetazolamide. 9. Norvasc. 10. Metoprolol. 11. Hydralazine. 12. Protonix. 13. Melatonin. 14. Zoloft. 15. Vancomycin. 16. Gabapentin. 17. Levemir. PHYSICAL EXAMINATION: VITAL SIGNS: On presentation, blood pressure 184/75 with heart rate 76, respiratory rate was 20, and temperature 98. Pain was 0/10, oxygen saturation was 97% on room air. GENERAL APPEARANCE: The patient is confused, arousal, can say a few words but did not establish a coherent conversation. The patient has decreased vision with some redness in the left eye. She reported this is normal for her. NECK: No JVD. RESPIRATORY: Bilateral air entry. No rales. No wheezes. Symmetric expansion. CARDIOVASCULAR: Normal rate. Regular rhythm. No murmurs. No gallop. Bilateral leg edema. ABDOMEN: Soft. Normal bowel sounds. MUSCULOSKELETAL: Baseline range of motion and strength. SKIN: Warm and intact. No pallor. No rash. No redness. Capillary refill seems to be intact. NEUROLOGIC: No evidence of any new focal weakness. The patient is uncooperative, unable to fully explore. PSYCHIATRIC: The patient is uncooperative, unable to fully explore. DIAGNOSTIC IMAGING: EKG, the patient has normal sinus rhythm with a rate of 71, left atrial enlargement. Brain CT was done, the patient has no acute intracranial findings, status post right orbital enucleation, new finding of tiny amount of gas within the soft tissue of enucleated right orbit, abnormal left lobe with intra-ocular soft tissue density mass. This is unchanged since 03/10/2019. Chest x-ray was reviewed. The patient has cardiomegaly with increased perihilar markings suggesting of element of pulmonary edema. LABORATORY DATA: Reviewed. The patient has white count 5.9, hemoglobin 11.3, MCV 82.2 with platelet count 112. Chemistry; sodium 139, potassium 3.5, chloride 96, carbon dioxide 25, anion gap 22, BUN 32, creatinine 3.92, GFR 13, glucose 168, and calcium 9.1. LFTs were normal. Alkaline phosphatase 451. Troponin was negative. Albumin 4.3. Toxicology was negative. ASSESSMENT AND PLAN: The patient will be placed in the hospital with following medical problems. 1. Acute encephalopathy, unclear etiology. The symptoms started when the patient was in a dialysis session, the reason why the dialysis had to be stopped. We will monitor. Mentation has improved slowly. 2. End-stage renal disease, on hemodialysis. Dr. Hannon to see the patient. We will follow recommendations. 3. Uncontrolled diabetes, home medications, might need a sliding scale for optimal control. 4. Uncontrolled hypertension. The patient presented with hypertensive urgency, reconcile home medications. The patient will need dialysis for optimal control of the blood pressure. 5. History of gastroesophageal reflux disease, reconcile home medications. 6. History of Clostridium difficile colitis. There is no diarrhea reported. 7. Hyperlipidemia. Low-cholesterol diet is advised. Reconcile home medications. 8. Deep venous thrombosis prophylaxis. 9. History of glaucoma. Home medications were reconciled. Job ID: [id number]
--- NOTE | 2019-05-17 17:10 | EKG ---
Test Reason : Blood Pressure : / mmHG Vent. Rate : 071 BPM Atrial Rate : 071 BPM P-R Int : 134 ms QRS Dur : 082 ms QT Int : 422 ms P-R-T Axes : 058 068 057 degrees QTc Int : 458 ms Normal sinus rhythm Possible Left atrial enlargement Nonspecific ST abnormality Abnormal ECG Confirmed by TRICE HAGAN DO ([id number]), editor news JUAN MANUEL DOUGLASS ([id number]) on 05/17/2019 5:10:21 PM Referred By: Confirmed By:TRICE HAGAN DO
== END 2019-05-15 16:24 ==
LOC: ERS 16:14 → 2SE 18:45
PROVIDERS: ADMIT Hospitalist; ATTEND Hospitalist
DX: G93.40 Encephalopathy, unspecified (principal); I16.0 Hypertensive urgency; I12.0 Hypertensive chronic kidney disease with stage 5 chronic kidney disease or end stage renal disease; E10.22 Type 1 diabetes mellitus with diabetic chronic kidney disease; N18.6 End stage renal disease; D63.1 Anemia in chronic kidney disease; E10.40 Type 1 diabetes mellitus with diabetic neuropathy, unspecified; E10.43 Type 1 diabetes mellitus with diabetic autonomic (poly)neuropathy; K31.84 Gastroparesis; E10.319 Type 1 diabetes mellitus with unspecified diabetic retinopathy without macular edema; I25.10 Atherosclerotic heart disease of native coronary artery without angina pectoris; K21.9 Gastro-esophageal reflux disease without esophagitis; E78.5 Hyperlipidemia, unspecified; H40.9 Unspecified glaucoma; F32.9 Major depressive disorder, single episode, unspecified; F41.9 Anxiety disorder, unspecified; Z99.2 Dependence on renal dialysis; Z91.19 Patient's noncompliance with other medical treatment and regimen; Z79.899 Other long term (current) drug therapy
CPT/HCPCS: 36415; 36416; 70450; 71045; 80053; 80307; 84484; 85025; 93005; G0378

== ENCOUNTER 2019-08-27 00:21 | Inpatient (IN) | payer OTHER ==
[2019-08-27 02:09] LABS: Hemoglobin 12.9 g/dL (12.0-16.0); Mean Corpuscular HGB CONC 32.9 g/dL (32.0-36.0); Mean Corpuscular Hemoglobin 28.3 pg (27.0-31.0); Mean Corpuscular Volume 86.1 fL (78.0-98.0); Mean Platelet Volume 10.3 fL (7.4-10.4); Platelet Count 144 thou/uL (130-400); RBC Distribution Width 17.1 % (11.5-14.5); Red Blood Cell (RBC) Count 4.56 mill/uL (4.20-5.40)
[2019-08-27 02:22] LABS: ALT (SGPT) Less than 7 U/L (8-55); AST (SGOT) 16 U/L (5-34); Albumin 4.7 g/dL (3.5-5.0); Alkaline Phosphatase 408 U/L (40-110); Anion Gap 27 mmol/L (10-20); BUN (Urea Nitrogen) 96 mg/dL (7.0-18.7); Bilirubin, Total 0.7 mg/dL (0.2-1.2); Calc. Creatinine Clearance 0 mL/min (70-130); Calcium 8.8 mg/dL (7.8-10.44); Carbon Dioxide 17 mmol/L (22-29); Chloride 97 mmol/L (98-107); Estimated GFR-MDRD 6; Globulin 3.3 g/dL (2.4-3.5); Glucose 225 mg/dL (70-105); Lipase 8 U/L (8-78); Sodium 133 mmol/L (136-145)
[2019-08-27 02:30] LABS: Band 2 % (5-11); Eosinophils 15 % (0-10); Lymphocytes 13 % (21-51); MDiff Complete? YES; Monocytes 3 % (0-10); Neutrophil 66 % (42-75); White Blood Cell (WBC) Count 11.5 thou/uL (4.8-10.8)
[2019-08-27 02:35] LABS: Potassium 7.5 mmol/L (3.5-5.1)
[2019-08-27] MEDS ORDERED: Sodium Bicarb 50 MEQ/50 ML Abboject 8.4% SYRINGE ONE (04:20)
[2019-08-27] MEDS ORDERED: Dextrose 50% Abboject 50 ML SYRINGE ONE (04:20)
[2019-08-27] MEDS ORDERED: Calcium Chloride 1 GM/10 ML Abboject SYRINGE ONE (04:20)
[2019-08-27] MEDS ORDERED: Insulin Regular 300 UNITS/3 ML VIAL ONE (04:20)
[2019-08-27] MEDS ORDERED: Acetaminophen 325 MG TAB PO PRN (07:59)
--- NOTE | 2019-08-27 08:03 | ULT ---
PRELIMINARY REPORT/[facility]/EMERGENCY AFTER HOURS PROCEDURE: PROCEDURE INFORMATION: Exam: US Abdomen Limited, Right Upper Quadrant Exam date and time: 08/27/2019 4:00 AM Clinical history: 43 years old, female; generalized abdominal pain TECHNIQUE: Imaging protocol: Real-time ultrasound of the abdomen with image documentation. Examination was focus ed on the right upper quadrant. COMPARISON: CT Abdomen Pelvis W Con 08/27/2019 2:01 AM FINDINGS: The liver exhibits homogeneous echogenicity. 5 mm polyp within the gallbladder fundus. No definite gallstones. Diffuse gallbladder wall thickening (11 mm) with trace pericholecystic fluid. The caliber of the common bile duct is normal measuring 2.8 mm. No intrahepatic biliary dilatation. The right kidney is reduced in size with cortical thinning and increased cortical echogenicity. Right renal cysts. No right hydronephrosis. Patient has history of ESRD. Normal caliber upper abdominal aorta and IVC. Bidirectional flow within the main portal vein. Pancreatic atrophy. No ascites. IMPRESSION: 1. 5 mm polyp within the gallbladder fundus. No definite gallstones. Diffuse gallbladder wall thicken ing (11 mm) with trace pericholecystic fluid. 2. No biliary tract dilatation. Thank you for allowing us to participate in the care of your patient. Dictated and Authenticated by: Magdiel Sanchez MD 08/27/2019 4:44 AM Central Time ([place] & [place]) FINAL REPORT EMERGENCY AFTER HOURS GALLBLADDER ULTRASOUND: Date: 08/27/19 FINDINGS/IMPRESSION: Small echogenic focus adherent to gallbladder wall without posterior shadowing suggesting a gallbladd er polyp. There is gallbladder wall thickening and pericholecystic edema. These findings were describ ed on the preliminary report. I am in agreement with the preliminary report by Jenny. POS: OFF
--- NOTE | 2019-08-27 08:06 | CT ---
PRELIMINARY REPORT/[facility]/EMERGENCY AFTER HOURS PROCEDURE: PROCEDURE INFORMATION: Exam: CT Abdomen and pelvis with contrast Exam date and time: 08/27/2019 2:01 AM Clinical history: 43 years old, female; to ED via EMS transport from [facility] in [place] for d iarrhea that began at 1800, ia staff noting approx 10 episodes since onset. lower abd pain. PT denies fever, n/v. En route, PT bradycardic. Dialysis M, W, F. HX ESRD TECHNIQUE: Imaging protocol: Computed tomography of the abdomen and pelvis with intravenous contrast. COMPARISON: No relevant prior studies available. FINDINGS: Pleural space: Minimal right pleural fluid. Minimal atelectasis in each posterior lower lobe. Right l ke base pleural calcification. Liver: Liver fatty infiltration. Gallbladder and bile ducts: Small calcified stone in the gallbladder fundus. Pericholecystic fluid. Possible cholecystitis. No biliary tract dilatation. Pancreas: Severe pancreatic atrophy. Small calcifications within the pancreatic head indicating chron ic pancreatitis. Spleen: Normal. No splenomegaly. Adrenals: Normal. No mass. Kidneys and ureters: Bilateral renal cysts. No hydronephrosis. Each [place] kidney is reduced in size. Skeletal changes indicative of renal osteodystrophy. Stomach and bowel: Mild distention of multiple small bowel loops in the mid to lower abdomen, some wi th mild wall thickening, suggesting a mild enteritis. In addition, diffuse wall thickening of the col on with indicating an associated colitis. Appendix: No evidence of appendicitis. Intraperitoneal space: Unremarkable. No free air. No significant fluid collection. Vasculature: Unremarkable. No abdominal aortic aneurysm. Lymph nodes: Unremarkable. No enlarged lymph nodes. Bladder: Urinary bladder diffuse wall thickening consistent with cystitis. Fluid and air within the v aginal lumen - considerations include infection, recent instrumentation, or possible fistula. Reproductive: Unremarkable as visualized. Bones/joints: Unremarkable. No acute fracture. Soft tissues: Unremarkable. IMPRESSION: 1. Mild distention of multiple small bowel loops in the mid to lower abdomen, some with mild wall thi ckening, suggesting a mild enteritis. In addition, diffuse wall thickening of the colon with indicati ng an associated colitis. 2. Small calcified stone in the gallbladder fundus. Pericholecystic fluid. Possible cholecystitis. 3. Urinary bladder diffuse wall thickening consistent with cystitis. 4. Fluid and air within the vaginal lumen - considerations include infection, recent instrumentation, or possible fistula. 5. Minimal right pleural fluid. Minimal atelectasis in each posterior lower lobe. Thank you for allowing us to participate in the care of your patient. Dictated and Authenticated by: Magdiel Sanchez MD 08/27/2019 3:08 AM Central Time ([place] & [place]) FINAL REPORT EMERGENCY AFTER HOURS CT ABDOMEN AND PELVIS: Date: 08/27/19 FINDINGS/IMPRESSION: Gallbladder is abnormal with diffuse wall thickening and pericholecystic edema. Nonspecific small bow el distention. Small amount of fluid in deep pelvis with fluid/air in vaginal vault. These findings w ere described on the preliminary report. I am in agreement with the preliminary report by Jenny. POS: OFF
[2019-08-27] MEDS ORDERED: HumaLOG 300 UNITS/3 ML VIAL SC PRN (08:34)
[2019-08-27] MEDS ORDERED: Dextrose 50% Abboject 50 ML SYRINGE SLOW IVP PRN (08:34)
[2019-08-27] MEDS ORDERED: Dextrose 5% in Water 1,000 ML IV PRN (08:34)
[2019-08-27] MEDS ORDERED: metroNIDAZOLE 500 MG TAB PO SCH (09:00)
--- NOTE | 2019-08-27 09:52 | PDOC.EVN ---
Event Note - Event Note Event Note: Discussed with ED nurse: DNR paperwork located in [place] chart --> code status updated as such.
[2019-08-27] MEDS ORDERED: Amlodipine 5 MG TAB ONE (10:34)
[2019-08-27] MEDS ORDERED: Ondansetron PF 4 MG/2 ML Vial ONE (10:37)
[2019-08-27] MEDS: Ondansetron PF 4 MG/2 ML Vial IVP PRN ×2 (10:48→21:21)
--- NOTE | 2019-08-27 12:14 | HP ---
PRIMARY CARE PHYSICIAN: Lauro Thompson MD CHIEF COMPLAINT/REASON FOR ADMISSION: The patient transferred to the emergency department for diarrhea. HISTORY OF PRESENT ILLNESS: Ms. Thao is an unfortunate 43-year-old female, presently residing at [facility] in [place], [place], with severe end-stage medical comorbidities including end-stage renal disease, on hemodialysis, followed by Dr. Hannon, blindness bilaterally, with previous right eye enucleation , and severe glaucoma to the left eye with subsequent blindness, record review indicates multiple prior histories of Clostridium difficile colitis, gastroesophageal reflux disease, essential hypertension. 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 She has no family present to assist with history giving, and she declines to identify surrogate medical decision maker. She is presently in hold bed in the ER, however, was moved upstairs for emergent hemodialysis due to hyperkalemia with a potassium of 7.2. At this time, ongoing efforts to identify her senior living chart and finalize medication list are underway. From record review, Ms. Thao has had multiple prior episodes of Clostridium difficile colitis, noting on 03/31/2019, fecal transplantation by Dr. Bravo. Her transfer paperwork indicates ongoing treatment with Florastor. Previous records have indicated oral vancomycin, but it does not appear she is currently taking this. I spoke with her bedside dialysis nurse, who also called her routine dialysis nurse. The patient did not come to hemodialysis yesterday. Nurse stated she did not come secondary to diarrhea. Thus, her last dialysis day was August 22. The patient herself is unable to provide details about onset of symptoms. Review of records indicates abdominal discomfort and diarrhea, at least 10 episodes since yesterday evening. At the time of my evaluation, the patient states she is not nauseated, had no fever. She recalls some abdominal discomfort, but this was not severe for her and history of type 1 diabetes as well. She does not identify any additional symptoms at the time of my evaluation. She understands she is at the hospital, is able to name her nursing facility, is able to tell me her full name, but unable to provide additional history. PAST MEDICAL HISTORY: 1. Type 1 diabetes with peripheral polyneuropathy, nephropathy, and retinopathy. 2. History of gastroparesis secondary to diabetic polyneuropathy. 3. Anemia of chronic disease secondary to end-stage renal disease. 4. End-stage renal disease on hemodialysis, with left upper extremity fistula placement. 5. History of Clostridium difficile colitis, approximately [address] Bravo's previous consultation note, status post fecal transplantation in March 2019. 6. Gastroesophageal reflux disease. 7. Glaucoma. 8. Blindness, bilaterally. 9. Previous right eye enucleation, details regarding this are unknown, the patient unable to elaborate. 10. Essential hypertension. 11. Anxiety/depression, presently on sertraline. 12. Cataract in the left eye. PAST SURGICAL HISTORY: 1. Tubal ligation. 2. Hemodialysis access fistula, left upper extremity. 3. Previous I and D for abscess, location unclear from prior record. 4. History of surgery for traumatic pneumothorax/chest tube. SOCIAL HISTORY: Currently, no alcohol use, no drug use, no tobacco dependence. She resides at [facility] in [place], [place]. FAMILY HISTORY: Requesting, unable to obtain. The patient declines further questions during evaluation. ALLERGIES: REVIEWED, NEGATIVE. MEDICATIONS: Unverified list: 1. Atropine sulfate 1% ophthalmic solution one drop left eye twice daily. 2. Prednisolone acetate suspension 1% one drop left eye daily. 3. Timolol 0.5% ophthalmic solution one drop left eye t.i.d. 4. Brimonidine 0.15% one drop left eye 3 times daily. 5. Dorzolamide 2% one drop left eye 3 times daily. 6. Florastor 250 mg p.o. twice daily. 7. Acetazolamide 250 mg p.o. once daily. 8. Norvasc 10 mg p.o. once daily. 9. Metoprolol succinate 50 mg p.o. once daily. 10. Hydralazine 25 mg p.o. t.i.d. 11. Protonix 40 mg p.o. once daily. 12. Melatonin 2 mg p.o. at bedtime. 13. Gabapentin 300 mg p.o. b.i.d. 14. Levemir 5 units subcutaneously once daily. 15. Zofran 4 mg p.o. q.6 hours p.r.n. nausea. 16. Reglan 5 mg p.o. q.8 hours p.r.n. nausea. 17. Bentyl 10 mg p.o. q.6 hours p.r.n. abdominal discomfort. 18. Loperamide 2 mg p.o. q.6 hours p.r.n. diarrhea. 19. Sertraline 50 mg p.o. once daily. REVIEW OF SYSTEMS: Full review of systems reviewed/addressed/negative except otherwise as mentioned. 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 PHYSICAL EXAMINATION: VITAL SIGNS: ER triage vital signs; blood pressure 163/80, pulse 51, respiratory rate 13, temperature 97.7, and saturating 95% on room air. GENERAL: Chronically ill-appearing, frail, thin female, lying in bed. Eyes are closed. Right eye status post enucleation surgery. Left eye with profound overlying cataract, conjunctival injection present, visually impaired Oropharynx, mucous membranes are dry. Mild whitish exudate present overlying the tongue. NECK: Supple. Full range of motion. HEART: Slow, regular, soft systolic murmur throughout the precordium. LUNGS: Clear anteriorly and laterally. ABDOMEN: Thin, soft, nontender, and nondistended. Able to palpate her abdomen without distinct pain. EXTREMITIES: Cachectic lower extremities, muscle wasting present. No edema is present. No significant rashes present. Onychomycosis present overlying her toenails. Left upper extremity fistula is in place. NEUROLOGIC: She is able to follow commands. She is able to tell me that she is in the hospital, and name her nursing facility. She is oriented to person. She knows the year and month. LAB/DATA REVIEW: Imaging performed in the emergency department includes CT of the abdomen and pelvis showing mild distention, multiple small bowel loops with wall thickening compatible with enteritis, diffuse wall thickening colon, compatible with colitis. Gallbladder noting pericholecystic fluid. Urinary bladder diffuse wall thickening with cystitis. Fluid and air within vaginal lumen. Considerations include infection, recent instrumentation, possible fistula. Abdominal ultrasound with 0.5 mm polyp within gallbladder fundus. No definite gallstone. Diffuse gallbladder wall thickening. Trace pericholecystic fluid. No biliary tract dilatation. EKG, reviewed, sinus bradycardia 50 beats per minute. No acute ST/T-wave changes. Labs reviewed. Serum sodium 133, potassium 7.5, chloride 97 , carbon dioxide 17, BUN 96, creatinine 7.6, and glucose 225. Liver function tests; alkaline phosphatase 408. Transaminases unremarkable. Lipase normal at 8. CBC ; white blood cell count 11.5, hemoglobin 12.9, hematocrit 39.3, and platelet count 144, 2% bands, 66% neutrophils. C difficile assay ordered by me. Contact precautions ordered. Previous records reviewed. IMPRESSION: 1. Acute diarrhea and a background history of recurrent Clostridium difficile colitis with previous fecal transplantation in March 2019, now with potential recurrent disease versus a complication such as fistula. 2. Intravascular volume depletion. 3. Hyperkalemia, severe and life-threatening in the context of missed dialysis. 4. End-stage renal disease, on hemodialysis. 5. Glaucoma. 6. Cataract. 7. Blindness bilaterally. 8. Essential hypertension. 9. Bradycardia. 10. Metabolic acidosis secondary to end-stage renal disease. 11. Type 1 diabetes, with polyneuropathy, nephropathy, retinopathy. PLAN/RECOMMENDATIONS: 1. GI - we will request GI input. For now, order C difficile, though clinically this would explain her symptomatology. Placed on vancomycin 125 mg p.o. q.6 hourly. Consideration for adjunctive fidaxomicin 200 mg p.o. twice daily for 10 days. Continue Florastor orally as well. 2. Renal - emergent hemodialysis presently underway. Fluid resuscitation while on dialysis ordered. Followup potassium postprocedure. Mild hyponatremia also noted, will likely improve after dialysis. 3. Glaucoma - resume home eye medications, may need adjustment when home medications clarified from nursing facility. 4. Cardiology - we will place metoprolol on hold, secondary to bradycardia. Continue home Norvasc. 5. Endocrine - Accu-Cheks/sliding scale for correctional insulin. Hold on long-acting insulin at this time. 6. Anxiety - continue home sertraline. 7. Code status presently full. The patient does not identify surrogate medical decision maker. The patient is reluctant to provide information to her treating team. She appears end stage from multiple comorbidities, with overall poor long-term prognosis. The patient is high risk. Addendum: Spoke with ED nurse after dictation complete: DNAR located and verified. Code status update. Spoke with Dr. Bravo later in the morning as well, care appreciated. Job ID: [id number] MTDD
[2019-08-27] MEDS ORDERED: hydrALAZINE 20 MG/ML VIAL ONE (12:15)
[2019-08-27] MEDS: hydrALAZINE 20 MG/ML VIAL SLOW IVP PRN ×4 (12:19→18:20)
[2019-08-27] MEDS: Amlodipine 10 MG TAB PO SCH (13:56)
[2019-08-27] MEDS: hydrALAZINE 25 MG TAB PO SCH ×3 (13:57→21:18)
[2019-08-27] MEDS: levETIRAcetam 500 MG TAB PO SCH ×2 (13:58→21:19)
[2019-08-27] MEDS: Saccharomyces boulardii 250 MG CAP PO SCH ×2 (13:58→20:04)
[2019-08-27] MEDS: Heparin 5,000 UNITS/ML VIAL SC SCH ×2 (13:58→21:18)
[2019-08-27] MEDS: Vancomycin HCl 25 MG/ML Oral PO SCH ×3 (13:59→21:19)
[2019-08-27] MEDS: Sevelamer Carbonate 800 MG TAB PO SCH ×2 (13:59→18:19)
[2019-08-27] MEDS: Dorzolamide HCl 2% Ophth Soln 10 ml Bottle L EYE SCH ×3 (14:00→21:17)
[2019-08-27] MEDS: prednisoLONE 1% Ophth Susp 5 ml Bottle L EYE SCH ×3 (14:03→21:16)
[2019-08-27] MEDS: Atropine Sulfate 1% Ophth Soln 5 ml Bottle L EYE SCH ×2 (14:03→21:18)
[2019-08-27] MEDS: Brimonidine Tartrate 0.2% Ophth Soln 5 ml Bottle L EYE SCH ×3 (14:03→21:17)
[2019-08-27 15:14] LABS: Anion Gap 17 mmol/L (10-20); BUN (Urea Nitrogen) 19 mg/dL (7.0-18.7); Calc. Creatinine Clearance 0 mL/min (70-130); Calcium 9.6 mg/dL (7.8-10.44); Carbon Dioxide 26 mmol/L (22-29); Chloride 98 mmol/L (98-107); Estimated GFR-MDRD 18; Glucose 204 mg/dL (70-105); Potassium 3.4 mmol/L (3.5-5.1); Sodium 138 mmol/L (136-145)
--- NOTE | 2019-08-27 15:22 | CON ---
DATE OF CONSULTATION: HISTORY OF PRESENT ILLNESS: Ms. Thao is a 43-year-old female with ESRD, was admitted for persistent diarrhea. During the initial evaluation, she was noted to be hyperkalemic with a potassium 7.5. Of interest, she missed her last dialysis Sunday. We were consulted for emergent hemodialysis and for her maintenance hemodialysis. The patient is currently undergoing dialysis today. REVIEW OF SYSTEMS: Positive for diarrhea. Positive for abdominal cramping. No fever or chills. No chest pain or shortness of breath. Occasional syncopal episode. Decreased visual acuity. No dysuria. No urinary frequency. No shortness of breath. No chest pain. No sore throat. Appetite and energy level are fair. MEDICATIONS: 1. Atropine eye drop as directed. 2. Prednisolone eye drop as directed. 3. Timolol eye drop as directed. 4. Florastor 250 mg once a day. 5. Dorzolamide eye drop 3 times a day left eye. 6. Acetazolamide 250 mg daily. 7. Norvasc 10 mg once a day. 8. Metoprolol succinate 50 mg daily. 9. Hydralazine 25 mg t.i.d. 10. Protonix 40 mg tablet once a day. PAST MEDICAL HISTORY: 1. ESRD - currently on maintenance hemodialysis Sunday, Sunday, and Sunday. 2. Type 2 diabetes mellitus. 3. Diabetic nephropathy. 4. Diabetic retinopathy. 5. History of noncompliance. 6. Diabetic gastroparesis. PAST SURGICAL HISTORY: Status post right eye enucleation, status post AV fistula placement, status post cuffed dialysis catheter placement, and status post bilateral tubal ligation. SOCIAL HISTORY: The patient lives in a longterm. Two children. No alcohol. No IV drug abuse. Status post multiple blood transfusion. 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 Education, 9th grade. ALLERGIES: NONE. TRAUMA: None. IMMUNIZATIONS: Up-to-date. HOSPITALIZATIONS: Please see past medical history. FAMILY HISTORY: No family history of ESRD. PHYSICAL EXAMINATION: VITAL SIGNS: Blood pressure is noted at 163/80, respiratory rate 13, , temperature 97.7, and O2 saturation 95% room air. GENERAL: The patient is awake, supine, comfortable, not in overt distress. SKIN: Adequate turgor. HEENT: She has pinkish conjunctivae. Anicteric sclerae. Decreased visual acuity, left eye. Right eye, positive for enucleation. NECK: No neck mass. No carotid bruits. No JVD. LUNGS: Clear breath sounds. No wheezing. No crackles. HEART: Normal sinus rhythm. No murmurs. No gallops. No rubs. ABDOMEN: Globular, soft, and nontender. CHEST: No deformities. ABDOMEN: Globular, soft, and nontender. No masses. EXTREMITIES: No edema. No deformities. NEUROLOGIC: The patient is awake and oriented to 3 spheres. Moving all extremities. No tremors. No asterixis. LABORATORY DATA: Laboratories of August 27, 2019; white count 11.5, hemoglobin 12.9. Sodium 133, potassium 7.5, chloride 97, carbon dioxide 17, BUN 96, creatinine 7.62, glucose 225, calcium 8.8. AST 16, ALT less than 7, and albumin is 4.7. ASSESSMENT AND PLAN: 1. End-stage renal disease - due to the hyperkalemia. The patient is undergoing emergent hemodialysis. We are using a 2.0 potassium bath. Fluid removal will be done only as tolerated. Please note, this is also her regular dialysis day. We will continue current Sunday, Sunday, and Sunday hemodialysis. Review of the last Kt/V suggests she is adequately dialyzed with the current dialysis regimen. 2. Diarrhea, supportive care. Overall agree with current management. Job ID: [id number]
[2019-08-27] MEDS: Timolol 0.5% Ophth Soln 5 ml Bottle L EYE SCH ×3 (16:10→21:16)
--- NOTE | 2019-08-27 19:51 | CON ---
DATE OF CONSULTATION: 08/27/2019 REQUESTING PHYSICIAN: Chandrika Adam MD REASON FOR CONSULTATION: Diarrhea with history of C. difficile. HISTORY OF PRESENT ILLNESS: Winsome Thao is a 43-year-old woman, who resides at [facility]. She has multiple comorbidities including end-stage renal disease on hemodialysis, bilateral blindness secondary to glaucoma, hypertension, and gastroesophageal reflux disease. She also has a history of multiple recurrences of C. difficile colitis. She was previously followed by my partner, Dr. Sreekanth Romero. I met her in March of this year, at which time, we performed fecal transplantation during colonoscopy. She had approximately seven recurrences of C. difficile colitis over the past 3 years. During her March colonoscopy, she had been on extended vancomycin until that time. The colonic mucosa appeared normal. It was essentially a normal exam. We instilled the donor stool and the patient had not followed up since then. Evidently, she had been doing well with no recurrence of diarrhea until recently. History is difficult as the patient is really not very talkative, though she can answer yes or no questions when pressed. Evidently over the past couple of days, she developed severe diarrhea. She evidently had more than 10 watery bowel movements last night. This is associated with nausea and a few episodes of emesis and this is what prompted her presentation. She missed her last dialysis session secondary to the diarrhea. Upon presentation to the Emergency Department, she is severely hypertensive. She also has labs demonstrating hyperkalemia with potassium up to 7.5. She is getting emergent hemodialysis now. Stool studies have been ordered, but not yet collected. She had a CT of the abdomen and pelvis, which demonstrates mild distention of multiple small bowel loops with some mild wall thickening as well as diffuse wall thickening of the colon. There is diffuse wall thickening of the urinary bladder as well. She has been started empirically on oral vancomycin 125 mg p.o. q.6 hours. PAST MEDICAL HISTORY: 1. Type 1 diabetes with peripheral neuropathy, retinopathy, and nephropathy. 2. Gastroparesis secondary to diabetes. 3. Anemia of chronic disease and end-stage renal disease. 4. End-stage renal disease on hemodialysis with left upper extremity fistula. 5. History of C. difficile colitis, approximately seven prior episodes. 6. Fecal transplantation in March 2019. 7. GERD. 8. Glaucoma. 9. Bilateral blindness. 10. Previous right eye enucleation. 11. Hypertension. 12. Depression/anxiety. 13. Tubal ligation. 14. History of surgery for traumatic pneumothorax/chest tube. SOCIAL HISTORY: The patient currently resides at [facility] in [place]. Currently, no alcohol, tobacco, or drug abuse. She has recently been made DNR status. FAMILY HISTORY: Unknown. ALLERGIES: NO KNOWN DRUG ALLERGIES. OUTPATIENT MEDICATIONS: 1. Atropine sulfate ophthalmic solution. 2. Prednisolone acetate ophthalmic solution. 3. Timolol eye drops. 4. Brimonidine eye drops. 5. Dorzolamide eye drops. 6. Florastor 250 mg twice daily. 7. Acetazolamide. 8. Norvasc. 9. Metoprolol. 10. Hydralazine. 11. Protonix 40 mg daily. 12. Melatonin. 13. Gabapentin. 14. Levemir insulin. 15. Zofran p.r.n. 16. Reglan p.r.n. 17. Bentyl p.r.n. 18. Imodium p.r.n. 19. Sertraline. REVIEW OF SYSTEMS: Really unable to obtain full review of systems secondary to the patient's unwillingness to answer questions. PHYSICAL EXAMINATION: VITAL SIGNS: Temperature 97.7, pulse 75, blood pressure is 182/70, and 97% oxygen saturation on room air. GENERAL: Chronically ill-appearing woman, lying in bed, in mild distress from abdominal discomfort. SKIN: No jaundice. No rashes were palpable. HEENT: Eyes, no scleral icterus. Extraocular movements intact. ENT, mucous membranes moist. No oral lesions. LYMPH: No submandibular or supraclavicular lymphadenopathy. THYROID: Nontender to palpation. HEART: Regular rate and rhythm. LUNGS: Clear to auscultation bilaterally. ABDOMEN: Nondistended, tympanitic to percussion. Bowel sounds are hypoactive, but present. There is some diffuse tenderness to palpation, but no guarding or rebound tenderness. EXTREMITIES: No peripheral edema. VESSELS: Radial pulses 2+ bilaterally. NEURO: Moves all extremities. LABORATORY STUDIES: Sodium 138, potassium 3.4, BUN 19, and creatinine 2.85. Prior to emergent hemodialysis, potassium was elevated at 7.5, BUN 96, creatinine 7.62, glucose is 207, calcium 9.6, total bilirubin 0.7, alkaline phosphatase 408, AST 16, ALT less than 7, lipase only 8, and albumin 4.7. WBC 11.5, hemoglobin 12.9, and platelets 144. IMAGING STUDIES: CT of the abdomen and pelvis demonstrates diffuse wall thickening of the colon suggestive of colitis as well as mild distention of multiple small bowel loops with mild wall thickening suggesting mild enteritis. Urinary bladder is also diffusely thickened. There is a stone in the gallbladder fundus, some pericholecystic fluid, also fluid in air within the vaginal lumen. ASSESSMENT AND PLAN: 1. Diarrhea, acute, severe. 2. Prior history of recurrent Clostridium difficile, with prior fecal transplantation in March 2019. 3. Enterocolitis per CT scan. 4. Chronic renal failure with hyperkalemia, required emergency hemodialysis this morning. Hopefully, this diarrhea does not represent recurrence of Clostridium difficile. I agree with stool studies, which have already been ordered. We will follow up on those results. Hopefully, this rather just represents an acute viral gastroenteritis. We will follow up the stool study results. I agree with the empiric oral vancomycin, which has already been started. Continue with other supportive care for now. If this does represent a Clostridium difficile recurrence, then I suspect at this point, we will put her back on an extended vancomycin taper. Thank you for the consultation. Please call back with questions or concerns. Job ID: [id number]
--- NOTE | 2019-08-27 19:56 | CON ---
DATE OF CONSULTATION: 08/27/2019 REASON FOR CONSULTATION: Abdominal pain, diarrhea. CONSULTING PROVIDER: Chandrika Adam MD HISTORY OF PRESENT ILLNESS: The patient is a 43-year-old female with past medical history of diabetes complicated by neuropathy, nephropathy, and retinopathy; hypertension; anxiety/depression; gastroparesis; anemia of renal disease; end-stage renal disease, on hemodialysis; GERD; glaucoma; and recurrent C. diff infection, presenting with abdominal pain and diarrhea. Upon speaking with the patient, she was reluctant to answer questions due to "I feel sick," but rather most information was obtained through chart review. Per chart review, the patient had recent onset of increased diarrhea having anywhere between 5 and 10 bowel movements over the last 24 to 48 hours per detention staff. However, it is unclear per patient and per chart exactly when this started and exactly how many bowel movements she was having per day. This was associated with increased suprapubic/lower abdominal pain characterized as an aching type sensation, nonradiating and reaching a severity of 10/10. There were no clear alleviating or exacerbating factors as of yet; however, this was associated with increased nausea and vomiting with the patient vomiting at the time of this interview. Currently, she denies any fevers, chills, constipation, dysphagia, or odynophagia. Per chart review, the patient was diagnosed with Clostridium difficile colitis earlier in the year and has had multiple bouts over the course of the last 1 to 2 years, she subsequently underwent a fecal microbiology transplantation on March 31, [address] Bravo and was ultimately discharged on Florastor. In the post fecal transplant, she did have some intermittent episodes of diarrhea, but then there was no further documentation regarding her abdominal pain or diarrhea since then. REVIEW OF SYSTEMS: A 10-category review of systems could not be reliably obtained due to the patient's debilitated status and reluctance to answer further questions in addition to her actively vomiting at the time of this interview. PAST MEDICAL HISTORY: As per HPI. PAST SURGICAL HISTORY: Bilateral tubal ligation, arteriovenous fistula placement in the left upper extremity, irrigation and drainage for abscess, and placement of a chest tube. FAMILY HISTORY: Denies any GI malignancies. SOCIAL HISTORY: Denies any tobacco, alcohol, or illicit drug use. Currently residing at [facility] in [place], [place]. OUTPATIENT MEDICATIONS: Reviewed. ALLERGIES: NO KNOWN DRUG ALLERGIES. PHYSICAL EXAMINATION: VITAL SIGNS: Temperature not documented. Pulse 80, blood pressure 195/71. Respiratory rate and O2 sats not documented. GENERAL: The patient was lying in bed, in mild distress. Alert and oriented x3. HEENT: Normocephalic and atraumatic. Left eye enucleation. No JVD or scleral icterus noted. CARDIOVASCULAR: Regular rate and rhythm with no discernible murmurs, gallops, or rubs. RESPIRATORY: Clear to auscultation bilaterally with no discernible wheezes or rales. ABDOMEN: Hyperactive bowel sounds. Soft, nondistended. Tenderness to palpation in all abdominal quadrants to both light and deep palpation. EXTREMITIES: No cyanosis, clubbing, or edema. LABORATORY DATA: CBC with a white blood cell count of 11.5, hemoglobin 12.9, hematocrit 39.3, platelets 144. Chemistry with a sodium of 138, potassium 3.4, chloride 98, CO2 of 26, BUN 19, creatinine 2.85, glucose 204. AST 16, ALT 7, alkaline phosphatase 408, total bilirubin 0.7, and albumin 4.7. IMAGING DATA: Fecal microbiology transplantation performed on March 31, 2019, showed mild patchy friability throughout the colon with installation of 250 mL of the donated stool into the terminal ileum, ascending and transverse colons. CT of the abdomen and pelvis was obtained on August 27, 2019, showing fatty infiltration of the liver, cholelithiasis with pericholecystic fluid concerning for cholecystitis, severe pancreatic atrophy with calcifications indicating possible chronic pancreatitis, mild distention of multiple small bowel loops with mild wall thickening in addition to diffuse wall thickening of the entire colon and the urinary bladder. ASSESSMENT AND PLAN: The patient is a 43-year-old female with past medical history of diabetes complicated by neuropathy, nephropathy, and retinopathy; hypertension; anxiety/depression; gastroparesis; anemia of renal disease; end-stage renal disease, on hemodialysis; gastroesophageal reflux disease; glaucoma; and recurrent Clostridium difficile infection, presenting with increased abdominal pain, diarrhea, nausea and vomiting concerning for recurrence of her Clostridium difficile colitis. Abdominal pain/diarrhea. The patient is presenting with a history of recurrent Clostridium difficile colitis that has required multiple treatments with oral vancomycin in the past and ultimately with fecal microbiota transplant in March 2019. Immediately following the FMT, she did have some mild diarrhea like bowel movements, but this seems to have resolved with no further documentation stating otherwise. However, over the last 24 to 48 hours, she has been having increased diarrhea like bowel movements, having anywhere between 5 and 10 liquid bowel movements per day (although, it is unclear exactly test to how many bowel movements during this time). With presentation of a mildly elevated white blood cell count in addition to her diarrhea and history of Clostridium difficile, this is strongly concerning for recurrence of her Clostridium difficile colitis. Differential could include other infectious pathogen (especially given her healthcare exposures), inflammatory bowel disease (less likely), ischemic colitis (less likely given entire colon involvement). Recommendations: 1. We will follow up on the already ordered infectious stool studies for possible infectious pathogen. 2. We would refrain from antimotility agents at least for the time being given the higher likelihood of a possible infection. 3. Continue with IV fluid rehydration given increased risk of hypovolemia with frequent diarrhea. 4. We will continue to monitor electrolytes and replace as needed. 5. Pain control per primary team. 6. Could consider continuation of probiotics especially in light of Clostridium difficile colitis. 7. If the patient does indeed test positive for recurrence of her Clostridium difficile colitis, I would place her back on oral vancomycin 125 mg q.6 as part of suppressive therapy and we will probably need a repeat of her fecal transplant here in the future. We will continue to follow. Please call with any questions. Job ID: [id number]
[2019-08-27] MEDS ORDERED: ISOVUE-370 76%-LOCM 1 ML ONE (20:27)
[2019-08-28] MEDS: Vancomycin HCl 25 MG/ML Oral PO SCH ×4 (04:03→21:08)
[2019-08-28 06:10] LABS: #Eosinphils 0.1 thou/uL (0.0-0.7); #Lymphocytes 0.7 thou/uL (1.20-3.40); #Monocytes 0.5 thou/uL (0.11-0.59); #Neutrophils 4.7 thou/uL (1.40-6.50); %Basophils 0.7 % (0.0-1.0); %Eosinophils 2.1 % (0.0-10.0); %Lymphocytes 11.5 % (21.0-51.0); %Monocytes 8.2 % (0.0-10.0); %Neutrophils 77.4 % (42.0-75.0); Mean Corpuscular HGB CONC 32.6 g/dL (32.0-36.0); Mean Corpuscular Hemoglobin 27.9 pg (27.0-31.0); Mean Corpuscular Volume 85.7 fL (78.0-98.0); Mean Platelet Volume 9.7 fL (7.4-10.4); Platelet Count 139 thou/uL (130-400); RBC Distribution Width 16.8 % (11.5-14.5); Red Blood Cell (RBC) Count 4.67 mill/uL (4.20-5.40); White Blood Cell (WBC) Count 6.1 thou/uL (4.8-10.8)
[2019-08-28 06:13] LABS: Anion Gap 23 mmol/L (10-20); BUN (Urea Nitrogen) 30 mg/dL (7.0-18.7); Calc. Creatinine Clearance 9 mL/min (70-130); Calcium 8.5 mg/dL (7.8-10.44); Carbon Dioxide 20 mmol/L (22-29); Chloride 99 mmol/L (98-107); Estimated GFR-MDRD 12; Glucose 232 mg/dL (70-105); Potassium 4.4 mmol/L (3.5-5.1); Sodium 138 mmol/L (136-145)
--- NOTE | 2019-08-28 08:58 | PRG ---
DATE OF SERVICE: 08/28/2019 SUBJECTIVE: Ms. Thao is a 43-year-old female with ESRD, who was admitted for diarrhea. She was also found to have an elevated potassium of 7.5. She underwent hemodialysis with improvement of the hyperkalemia. This morning, she voices no new complaints. GI has evaluated her for diarrhea. The patient denies any chest pain or shortness of breath. OBJECTIVE: VITAL SIGNS: Blood pressure 102/58, heart rate 76, respiratory rate 18, temperature 98, and pulse ox 100%. GENERAL: The patient is sleeping, but arousable and comfortable, not in distress. SKIN: Adequate turgor. HEENT: She has a pinkish conjunctivae. Anicteric sclerae. NECK: No neck mass. No carotid bruits. No JVD. CHEST: No deformities. LUNGS: Clear breath sounds. No wheezing. No crackles. HEART: Normal sinus rhythm. No murmur. No gallops. No rubs. ABDOMEN: Globular, soft, and nontender. No masses. EXTREMITIES: No edema. No deformities. NEUROLOGICAL: The patient has decreased visual activity, status post right eye enucleation. MEDICATIONS: Medication of August 28, 2019, was reviewed. LABORATORY DATA: Laboratories of August 28, 2019; white count 6.1, hemoglobin 13. Sodium 138, potassium 4.4, chloride 99, carbon dioxide 20, BUN 30, creatinine 4.03, and calcium 8.5. ASSESSMENT AND PLAN: 1. Hyperkalemia, resolved with dialysis. 2. End-stage renal disease, stable. We will continue current Sunday, Sunday, and Sunday dialysis. No indication for any acute dialysis today. 3. Diarrhea - GI following. Supportive care. Recheck basic metabolic panel in a.m. Job ID: [id number]
[2019-08-28] MEDS: Amlodipine 10 MG TAB PO SCH (08:59)
[2019-08-28] MEDS ORDERED: Prevnar 13-Val Conj/PF 0.5 ML SYRINGE IM ONE (09:00)
[2019-08-28] MEDS ORDERED: FLU VACC QS2019-20(6MOS UP)/PF 60 MCG/0.5 ML SYRINGE IM ONE (09:00)
[2019-08-28] MEDS: Ondansetron PF 4 MG/2 ML Vial IVP PRN (09:11)
[2019-08-28] MEDS: Heparin 5,000 UNITS/ML VIAL SC SCH ×2 (09:11→21:10)
[2019-08-28] MEDS: levETIRAcetam 500 MG TAB PO SCH ×2 (09:13→21:06)
[2019-08-28] MEDS: hydrALAZINE 25 MG TAB PO SCH ×3 (09:14→21:06)
[2019-08-28] MEDS: Sevelamer Carbonate 800 MG TAB PO SCH ×3 (09:14→19:19)
[2019-08-28] MEDS: Dorzolamide HCl 2% Ophth Soln 10 ml Bottle L EYE SCH ×3 (09:19→21:24)
[2019-08-28] MEDS: Timolol 0.5% Ophth Soln 5 ml Bottle L EYE SCH ×3 (09:20→21:06)
[2019-08-28] MEDS: prednisoLONE 1% Ophth Susp 5 ml Bottle L EYE SCH ×3 (09:20→21:10)
[2019-08-28] MEDS: Atropine Sulfate 1% Ophth Soln 5 ml Bottle L EYE SCH ×2 (09:21→21:24)
[2019-08-28] MEDS: Brimonidine Tartrate 0.2% Ophth Soln 5 ml Bottle L EYE SCH ×3 (09:21→21:18)
[2019-08-28] MEDS: Saccharomyces boulardii 250 MG CAP PO SCH ×2 (09:29→21:06)
[2019-08-28] MEDS ORDERED: Sodium Chloride 0.9% 500 ML IV SCH (12:15)
--- NOTE | 2019-08-28 12:53 | PDOC.HOSPP ---
- Subjective Encounter Date: 08/28/19 Encounter Time: 11:25 Subjective: Resting in bed, TV on in room, untouched food tray at bedside. Spoke with bedside RN: One liquid BM overnight, none thus far today. Nausea/vomiting better, but declines food. States abdominal pain is "better." - Objective Vital Signs & Weight: Vital Signs (12 hours) Temp Pulse Resp BP BP Pulse Ox 08/28/19 09:20 76 102/58 L 08/28/19 09:14 76 102/58 L 08/28/19 08:59 76 102/58 L 08/28/19 08:00 100 08/28/19 07:19 98.0 F 76 18 102/58 L 100 08/28/19 04:00 97.8 F 81 20 150/65 H 94 L Weight Weight 72 lb 12.8 oz Result Diagrams: 08/28/19 05:44 08/28/19 05:44 Additional Labs: Accuchecks 08/28/19 08/28/19 08/27/19 11:37 04:17 19:05 POC Glucose 212 H 217 H 227 H 08/27/19 16:56 POC Glucose 207 H Hospitalist ROS - Medication Medications: Active Medications Generic Name Dose Route Start Last Admin Trade Name Freq PRN Reason Stop Dose Admin Amlodipine Besylate 10 mg 08/27/19 09:00 08/28/19 08:59 Norvasc PO Not Given DAILY MEGAN Atropine Sulfate 1 drop 08/27/19 09:00 08/28/19 09:21 Atropine 1% Ophth Soln L EYE 1 drop BID MEGAN Administration Brimonidine Tartrate 1 drop 08/27/19 09:00 08/28/19 09:21 Alphagan 0.2% Ophth Soln L EYE 1 drop TID MEGAN Administration Dorzolamide HCl 1 drop 08/27/19 09:00 08/28/19 09:19 Trusopt 2% Ophth Soln L EYE 1 drop TID MEGAN Administration Heparin Sodium (Porcine) 5,000 units 08/27/19 09:00 08/28/19 09:11 Heparin SC Not Given BID MEGAN Hydralazine HCl 25 mg 08/27/19 09:00 08/28/19 09:14 Apresoline PO Not Given TID MEGAN Hydralazine HCl 5 mg 08/27/19 12:02 08/27/19 18:20 Apresoline SLOW IVP 5 mg Q1H PRN Administration SBP>170 Sodium Chloride 500 mls @ 75 mls/hr 08/28/19 12:15 08/28/19 12:35 Normal Saline 0.9% IV 08/28/19 18:54 500 mls .Q6H40M MEGAN Administration Levetiracetam 500 mg 08/27/19 09:00 08/28/19 09:13 Keppra PO Not Given BID MEGAN Ondansetron HCl 4 mg 08/27/19 07:59 08/28/19 09:11 Zofran IVP 4 mg Q6H PRN Administration Nausea/Vomiting Prednisolone Acetate 1 drop 08/27/19 09:00 08/28/19 09:20 Econopred Plus 1% Opth Susp L EYE 1 drop TID MEGAN Administration Saccharomyces Boulardii 250 mg 08/27/19 09:00 08/28/19 09:29 Florastor PO Not Given BID MEGAN Sertraline HCl 100 mg 08/27/19 09:00 08/28/19 09:25 Zoloft PO 100 mg DAILY MEGAN Administration Sevelamer Carbonate 2,400 mg 08/27/19 12:00 08/28/19 12:34 Renvela PO Not Given TID-WM MEGAN Sodium Chloride 10 ml 08/27/19 21:00 08/28/19 09:12 Flush - Normal Saline IVF 10 ml Q12HR MEGAN Administration Timolol Maleate 1 drop 08/27/19 09:00 08/28/19 09:20 Timoptic 0.5% Ophth Soln L EYE 1 drop TID MEGAN Administration Vancomycin HCl 125 mg 08/27/19 09:00 08/28/19 09:25 First Vancomycin PO 125 mg Q6H MEGAN Administration - Exam General - other findings: Chronically frail and ill appearing female Eye - other findings: s/p right eye enucleation and left eye with cataract/ glaucoma/conj injectio ENT: dry oral mucosa Neck: supple Heart: RRR, murmur present Heart - other findings: systolic, throughout precordium Respiratory: CTAB Gastrointestinal: soft, non-tender, non-distended Extremities: no edema Skin: no rashes Skin - other findings: LUE HD catheter Neurological: no focal deficits Musculoskeletal: diffuse muscle atrophy Psychiatric: A&O x 3, flat affect Hosp A/P (1) Diabetes mellitus with diabetic polyneuropathy Code(s): E11.42 - TYPE 2 DIABETES MELLITUS WITH DIABETIC POLYNEUROPATHY Status : Acute (2) Glaucoma Code(s): H40.9 - UNSPECIFIED GLAUCOMA Status: Acute (3) C. difficile colitis Status: Acute (4) Diabetic gastroparesis Code(s): E11.43 - TYPE 2 DIABETES W DIABETIC AUTONOMIC (POLY)NEUROPATHY; K31.84 - GASTROPARESIS Status: Chronic (5) ESRD (end stage renal disease) on dialysis Code(s): N18.6 - END STAGE RENAL DISEASE; Z99.2 - DEPENDENCE ON RENAL DIALYSIS Status: Chronic (6) Hypertension Code(s): I10 - ESSENTIAL (PRIMARY) HYPERTENSION Status: Chronic (7) Protein-calorie malnutrition, severe Code(s): E43 - UNSPECIFIED SEVERE PROTEIN-CALORIE MALNUTRITION Status: Chronic (8) Secondary hyperparathyroidism of renal origin Code(s): N25.81 - SECONDARY HYPERPARATHYROIDISM OF RENAL ORIGIN Status: Chronic (9) Hyperkalemia Code(s): E87.5 - HYPERKALEMIA Status: Resolved - Plan DVT proph w/heparin GI - C dif positive; rate of diarrhea improved; nausea better, hoping she can tolerate oral vanc. Increased fecal lactoferrin noted. Shigella/Camp stool negative. Appreciate GI consultation Renal - intravascularly dry --> NS 75ml/hr for 500ml. Hyperkalemia resolved. FEN - as above, trial oral diabetic diet Endo - correctional insulin SS Anxiety - continue sertraline Cards - continue routine home ant-HTN as tolerated; metoprolol on hold due to bradycardia on admission DNR noted/confirmed/continued
--- NOTE | 2019-08-28 13:20 | PRG ---
DATE OF SERVICE: 08/28/2019 SUBJECTIVE: Ms. Thao has not had any further vomiting today. She endorses minimal nausea, but no further abdominal pain. Her diarrhea slowed down significantly today. Stool testing did come back positive for C difficile antigen and toxin with elevated fecal lactoferrin. OBJECTIVE: VITAL SIGNS: Temperature 98.0, pulse 76, blood pressure 102/58, and 100% oxygen saturation on room air. GENERAL: Frail, chronically ill, in no acute distress. HEART: Regular rate and rhythm. LUNGS: Clear to auscultation bilaterally. ABDOMEN: Nondistended. Bowel sounds are present. Soft. Nontender abdomen to palpation. EXTREMITIES: No peripheral edema. LABORATORY STUDIES: WBC 6.1, hemoglobin 13.0, platelets 139. Sodium 138, potassium 4.4, BUN 30, creatinine 4.03, glucose 212. Stool studies were negative for Campylobacter antigen and Shiga toxin. C difficile antigen and toxin are both positive. Stool lactoferrin is elevated. ASSESSMENT AND PLAN: 1. Clostridium difficile colitis, recurrent. 2. Diarrhea, secondary to recurrent Clostridium difficile colitis, improving today. Unfortunately, the patient has had recurrence of Clostridium difficile. This would be at least her eighth recurrence over the past few years. At least, she did well for several months following stool transplantation last March. At this point, I would recommend continuing her back on vancomycin 125 mg by mouth four times daily. I would give her enough for at least a month of therapy, and we will plan to see her back in the GI Clinic around that time. At that point, if she is doing better, we will likely start an extended taper. 3. GI will sign off at this time, but please call back anytime with questions or concerns or worsening of the patient's clinical status. We will see her back in clinic in the next 3 to 4 weeks. Job ID: [id number]
[2019-08-29] MEDS: Vancomycin HCl 25 MG/ML Oral PO SCH ×4 (04:06→20:52)
[2019-08-29 05:12] LABS: #Basophils 0.1 thou/uL (0.0-0.2); #Eosinphils 0.6 thou/uL (0.0-0.7); #Lymphocytes 1.7 thou/uL (1.20-3.40); #Monocytes 0.5 thou/uL (0.11-0.59); #Neutrophils 3.2 thou/uL (1.40-6.50); %Basophils 1.5 % (0.0-1.0); %Eosinophils 10.4 % (0.0-10.0); %Lymphocytes 27.7 % (21.0-51.0); %Monocytes 7.8 % (0.0-10.0); %Neutrophils 52.7 % (42.0-75.0); Hemoglobin 12.6 g/dL (12.0-16.0); Mean Corpuscular HGB CONC 32.3 g/dL (32.0-36.0); Mean Corpuscular Hemoglobin 28.3 pg (27.0-31.0); Mean Corpuscular Volume 87.7 fL (78.0-98.0); Mean Platelet Volume 9.6 fL (7.4-10.4); Platelet Count 140 thou/uL (130-400); RBC Distribution Width 16.2 % (11.5-14.5); Red Blood Cell (RBC) Count 4.45 mill/uL (4.20-5.40)
[2019-08-29 05:30] LABS: Anion Gap 24 mmol/L (10-20); BUN (Urea Nitrogen) 39 mg/dL (7.0-18.7); Calc. Creatinine Clearance 7 mL/min (70-130); Calcium 8.7 mg/dL (7.8-10.44); Carbon Dioxide 19 mmol/L (22-29); Chloride 98 mmol/L (98-107); Estimated GFR-MDRD 8; Glucose 210 mg/dL (70-105); Potassium 4.9 mmol/L (3.5-5.1); Sodium 136 mmol/L (136-145)
[2019-08-29] MEDS: Timolol 0.5% Ophth Soln 5 ml Bottle L EYE SCH ×3 (08:54→20:55)
[2019-08-29] MEDS: Sevelamer Carbonate 800 MG TAB PO SCH ×3 (08:55→17:50)
[2019-08-29] MEDS: prednisoLONE 1% Ophth Susp 5 ml Bottle L EYE SCH ×3 (08:56→20:55)
[2019-08-29] MEDS: hydrALAZINE 25 MG TAB PO SCH ×3 (08:57→20:51)
[2019-08-29] MEDS: Brimonidine Tartrate 0.2% Ophth Soln 5 ml Bottle L EYE SCH ×3 (08:58→20:56)
[2019-08-29] MEDS: Heparin 5,000 UNITS/ML VIAL SC SCH ×2 (08:58→20:52)
[2019-08-29] MEDS: Atropine Sulfate 1% Ophth Soln 5 ml Bottle L EYE SCH ×2 (08:59→20:53)
[2019-08-29] MEDS: Dorzolamide HCl 2% Ophth Soln 10 ml Bottle L EYE SCH ×3 (09:00→20:54)
--- NOTE | 2019-08-29 09:14 | PRG ---
DATE OF SERVICE: 08/29/2019 SUBJECTIVE: The patient is seen and examined at the bedside. She has some complaints about the pain in the neck, which started last night. She does not have much appetite. She does not want to eat. OBJECTIVE: VITAL SIGNS: Blood pressure is 174/69, pulse is 66, temperature is 98.2, respiratory rate is 17, and O2 saturation is 95% on room air. HEENT: Her oral mucosa is slightly dry. NECK: Supple. LUNGS: Clear. HEART: S1 and S2 normal. No S3. No S4. ABDOMEN: Soft, nontender, and nondistended. EXTREMITIES: Muscle wasting present on both lower extremities. Pulses are palpable on both tibialis posterior and dorsalis pedis arteries. NEUROLOGIC: She follows my commands. She moves her all 4 extremities. There is no any motor deficits. LABORATORY DATA: Labs showed white count of 6.0, hemoglobin 12.16, hematocrit 39.0, and platelet count is 140,000. Sodium of 136, potassium 4.9, chloride 98, CO2 of 19, BUN 39, creatinine 5.56, glucose is from 197 to 240, and calcium is 8.7. IMPRESSION AND PLAN: 1. Recurrent Clostridium difficile colitis on oral vancomycin. Gastroenterologists signed off. He recommends to continue her oral vancomycin for at least one month and the dose will be tapered after that. We are going to hold her discharge back to the correction today since she is not really eating much. We will check with Dr. Hannon, whether he needs to dialyze her today too. 2. Diabetes mellitus with diabetic polyneuropathy. 3. Glaucoma. 4. Diabetic gastroparesis. 5. End-stage renal disease. 6. Hypertension. We will make some additional adjustment of the medicine. 7. Hyperkalemia, resolved. Job ID: [id number]
--- NOTE | 2019-08-29 09:55 | PRG ---
DATE OF SERVICE: 08/29/2019 SUBJECTIVE: Ms. Thao is a 43-year-old female with ESRD and followed up by the [facility] for maintenance hemodialysis. She was initially seen for diarrhea, but was found to be hyperkalemic. GI has evaluated this patient. She has no new complaints today. I have scheduled her for regular dialysis. She also was diagnosed with diarrhea from a secondary recurrent C. diff colitis. It is clinically improving. Recommendation is to continue back vancomycin 125 mg tablet q.i.d. No complaints of chest pain or shortness of breath. OBJECTIVE: VITAL SIGNS: Blood pressure 174/69, heart rate 66, respiratory rate 17, temperature 98.2, and pulse ox 95%. GENERAL: Awake, alert, and comfortable, not in distress. SKIN: Adequate turgor. HEENT: She has pinkish conjunctivae. Anicteric sclerae. NECK: No neck mass. No carotid bruits. No JVD. CHEST: No deformities. LUNGS: Clear breath sounds. HEART: Normal sinus rhythm. No murmur. No gallops. No rubs. ABDOMEN: Globular, soft, and nontender. No masses. EXTREMITIES: No edema. No deformities. NEUROLOGIC: She has decreased visual acuity, status post right eye enucleation. MEDICATIONS: Medications of August 29, 2019, reviewed. LABORATORY DATA: Laboratories of August 29, 2019; sodium 136, potassium 4.9, chloride 98, carbon dioxide 19, BUN 39, creatinine 5.56, calcium 8.7. Hemoglobin 12.6. ASSESSMENT AND PLAN: 1. End-stage renal disease, stable. We will continue current hemodialysis regimen of 3 times a week - for 3-1/2 hours. Fluid removal only as tolerated. 2. Chronic anemia. No indication for Epogen. 3. Clostridium difficile colitis, recurrent on oral vancomycin. Agree with current management. Job ID: [id number]
[2019-08-29] MEDS: levETIRAcetam 500 MG TAB PO SCH ×2 (13:31→20:51)
[2019-08-29] MEDS: Saccharomyces boulardii 250 MG CAP PO SCH ×2 (13:31→20:51)
[2019-08-29] MEDS: Amlodipine 10 MG TAB PO SCH (15:12)
[2019-08-29] MEDS ORDERED: Insulin Glargine 10 UNITS in Pre-Filled Syringe 1 EACH SC SCH (21:00)
[2019-08-30] MEDS: Vancomycin HCl 25 MG/ML Oral PO SCH ×3 (02:03→15:20)
[2019-08-30] MEDS: hydrALAZINE 25 MG TAB PO SCH ×2 (09:05→15:19)
[2019-08-30] MEDS: levETIRAcetam 500 MG TAB PO SCH (09:08)
[2019-08-30] MEDS: Saccharomyces boulardii 250 MG CAP PO SCH (09:08)
[2019-08-30] MEDS: Amlodipine 10 MG TAB PO SCH (09:08)
[2019-08-30] MEDS: prednisoLONE 1% Ophth Susp 5 ml Bottle L EYE SCH ×2 (09:09→15:12)
[2019-08-30] MEDS: Timolol 0.5% Ophth Soln 5 ml Bottle L EYE SCH ×2 (09:10→15:13)
[2019-08-30] MEDS: Brimonidine Tartrate 0.2% Ophth Soln 5 ml Bottle L EYE SCH ×2 (09:11→15:11)
[2019-08-30] MEDS: Sevelamer Carbonate 800 MG TAB PO SCH ×2 (09:11→14:34)
[2019-08-30] MEDS: Atropine Sulfate 1% Ophth Soln 5 ml Bottle L EYE SCH (09:11)
[2019-08-30] MEDS: Heparin 5,000 UNITS/ML VIAL SC SCH (09:16)
[2019-08-30] MEDS: Dorzolamide HCl 2% Ophth Soln 10 ml Bottle L EYE SCH ×2 (09:27→15:20)
[2019-08-30 11:08] VITALS: TEMP 98.2
[2019-08-30 15:23] VITALS: BP 160/75
--- NOTE | 2019-08-30 16:46 | DIS ---
DATE OF ADMISSION: 08/27/2019 DATE OF DISCHARGE: 08/30/2019 FINAL DIAGNOSES: 1. Recurrent Clostridium difficile colitis. 2. Diabetes mellitus with diabetic polyneuropathy. 3. Glaucoma. 4. Diabetic gastroparesis. 5. End-stage renal disease, on hemodialysis 3 times a week. 6. Hypertension. 7. Hyperkalemia, resolved. 8. Anorexia. STORE ADMINISTRATOR: Dr. Saravanan Bravo, stamp pad maker. HOSPITAL COURSE: The patient was a 43-year-old custodial resident, who was transferred to the emergency room department for diarrhea. She lives in [facility]. She has severe end-stage medical comorbidities like end-stage renal disease, on hemodialysis, followed by Dr. Hannon, blindness bilaterally with previous right eye enucleation and severe glaucoma to the left eye with subsequent blindness. She has multiple prior history for Clostridium difficile colitis and she had even a fecal transplant. She presented to the emergency room and was noticed to have hyperkalemia with potassium of 7.2. The patient was not nauseated. She did not have fever. She had some abdominal discomfort. At the time, emergency room evaluation showed sodium of 133, potassium of 7.5, chloride 97, carbon dioxide 17, BUN 96, creatinine 7.6, glucose 225, alkaline phosphatase was up to 408. Transaminases were unremarkable. CBC was 11.5, hemoglobin 12.9, hematocrit 39.3, platelet count was 144,000, 2% of bands and 66 of neutrophils. Abdominal ultrasound showed a 0.5 mm polyp within gallbladder fundus, diffuse gallbladder wall thickening and trace pericholecystic fluid. There was no biliary tract dilatation. EKG showed sinus bradycardia 50 beats per minute. No acute ST-T wave changes. The CT of the abdomen and pelvis showed mild distention, multiple small bowel loops with wall thickening compatible with enteritis, diffuse wall thickening of colon compatible with colitis. Urinary bladder had diffuse wall thickening with cystitis. The patient got admitted to the hospital. She was placed on vancomycin orally every 6 hours and her Florastor was continued. She had emergent hemodialysis by Dr. Hannon, which followed fluid resuscitation. She tolerated hemodialysis well and her potassium level was corrected to 3.4 and creatinine level was corrected to 2.85 from 7.62. Her microbiology came back positive for C difficile and the patient was continued on oral vancomycin. Her appetite was poor the patient was seen by Dr. Perera for gastrointestinal evaluation and subsequently Dr. Bravo took over, who recommended to continue her vancomycin orally for at least one month and he will taper gradually dose off after the discharge from the hospital. The patient ate about 50% of her breakfast today. She did quite well and we are sending her back to her custodial. Her blood pressure is 159/80, pulse is 65, temperature is 98.2, respirations 18, O2 saturation is 95% on room air. She is not in any distress. She was seen and evaluated before she was discharged. DISCHARGE DIET: Diabetic 2000 calories and renal diet. ACTIVITIES: As tolerated, but we know that she is bedridden for quite some time. MEDICATIONS: At the time of discharge 1. Zofran q.6 hours. 2. Tylenol 650 q.6 hours. 3. Renvela 1.6 g 3 times a day. 4. Keppra 500 mg twice a day. 5. Hydralazine 3 times a day. 6. Sertraline 100 mg daily. 7. Florastor 250 mg twice a day. 8. Vancomycin 125 mg p.o. q.6 hours. 9. Also, she will continue her regular schedule for her insulin. She is discharged back to the custodial. Job ID: [id number]
[2019-08-30 16:59] VITALS: BMI 13.4
== END 2019-08-30 17:18 | disposition home or self-care (01) | DRG 371 ==
LOC: ERS 00:21 → ERHOLD 04:19 → OBSVTOIN 04:19 → T4-A 15:33
PROVIDERS: ADMIT Internal Medicine; ATTEND Internal Medicine
PROC: 5A1D70Z Performance of Urinary Filtration, Intermittent, Less than 6 Hours Per Day (ICD-10-PCS; principal; 2019-08-27)
DX: A04.71 Enterocolitis due to Clostridium difficile, recurrent (principal); N18.6 End stage renal disease; E43 Unspecified severe protein-calorie malnutrition; I12.0 Hypertensive chronic kidney disease with stage 5 chronic kidney disease or end stage renal disease; Z66 Do not resuscitate; E87.1 Hypo-osmolality and hyponatremia; N25.81 Secondary hyperparathyroidism of renal origin; Z68.1 Body mass index [BMI] 19.9 or less, adult; Z79.899 Other long term (current) drug therapy; Z99.2 Dependence on renal dialysis; Z98.51 Tubal ligation status; E87.5 Hyperkalemia; K21.9 Gastro-esophageal reflux disease without esophagitis; H54.7 Unspecified visual loss; F41.9 Anxiety disorder, unspecified; F32.9 Major depressive disorder, single episode, unspecified; Z98.42 Cataract extraction status, left eye; H40.9 Unspecified glaucoma; E10.22 Type 1 diabetes mellitus with diabetic chronic kidney disease; E10.319 Type 1 diabetes mellitus with unspecified diabetic retinopathy without macular edema; E10.42 Type 1 diabetes mellitus with diabetic polyneuropathy; E10.43 Type 1 diabetes mellitus with diabetic autonomic (poly)neuropathy; K31.84 Gastroparesis
CPT/HCPCS: 36415; 36416; 74177; 76705; 80048; 80053; 83630; 83690; 85025; 87045; 87046; 87324; 87427; 87449; 87493; 90935; 93005; 96365; 96375; G0257; J0360; J0780; J1644; J1815; J2405; Q9966

== ENCOUNTER 2019-09-29 16:52 | Emergency (ER) | payer OTHER ==
[2019-09-29 17:24] LABS: #Eosinphils 0.3 thou/uL (0.0-0.7); #Lymphocytes 1.2 thou/uL (1.20-3.40); #Monocytes 0.7 thou/uL (0.11-0.59); #Neutrophils 6.7 thou/uL (1.40-6.50); %Basophils 0.5 % (0.0-1.0); %Lymphocytes 13.1 % (21.0-51.0); %Monocytes 7.4 % (0.0-10.0); Hemoglobin 10.4 g/dL (12.0-16.0); Mean Corpuscular HGB CONC 34.2 g/dL (32.0-36.0); Mean Corpuscular Hemoglobin 28.1 pg (27.0-31.0); Mean Corpuscular Volume 82.4 fL (78.0-98.0); Mean Platelet Volume 9.5 fL (7.4-10.4); Platelet Count 152 thou/uL (130-400); RBC Distribution Width 16.5 % (11.5-14.5); Red Blood Cell (RBC) Count 3.69 mill/uL (4.20-5.40); White Blood Cell (WBC) Count 8.8 thou/uL (4.8-10.8)
[2019-09-29 17:39] LABS: Base Excess-Venous 1.8 mmol/L (-2.0 to 3.0); Bicarbonate (HCO3v) 23.3 mmol/L (22.0-28.0); CO2 Tension (PvCO2) 26.5 mmHg (40.0-50.0); Calcium, Ionized 0.92 mmol/L (See Comments:); Chloride 104 mmol/L (98-107); Glucose 92 mg/dL (70-105); Hemoglobin - Calc 11.4 g/dL (12.0-16.0); Lactate 1.12 mmol/L (0.50-2.20); Potassium 3.7 mmol/L (3.5-5.1); Sodium 139 mmol/L (138-145); T. Carbon Dioxide 24.1 mmol/L (22.0-28.0); vO2 Saturation-calc 95.3 % (60.0-85.0)
== END 2019-09-29 18:55 | disposition home or self-care (01) ==
LOC: ERS 16:52
DX: I12.0 Hypertensive chronic kidney disease with stage 5 chronic kidney disease or end stage renal disease (principal); N18.6 End stage renal disease; E10.22 Type 1 diabetes mellitus with diabetic chronic kidney disease; E10.40 Type 1 diabetes mellitus with diabetic neuropathy, unspecified; D64.9 Anemia, unspecified; G47.00 Insomnia, unspecified; K21.9 Gastro-esophageal reflux disease without esophagitis; E78.5 Hyperlipidemia, unspecified; F41.9 Anxiety disorder, unspecified; F32.9 Major depressive disorder, single episode, unspecified; Z99.2 Dependence on renal dialysis
CPT/HCPCS: 82330; 82435; 82565; 82803; 82947; 83605; 84132; 84295; 85025; 93005; 94760

== ENCOUNTER 2019-10-01 08:09 | Inpatient (IN) | payer OTHER ==
--- NOTE | 2019-10-01 09:17 | RAD ---
XR Chest 1 View Portable History: Altered mental status. Back pain. Comparison: Chest radiograph April 2019 Findings: There continues to be peripheral pleural thickening along the lateral aspect right middle l obe. Faint right upper lobe right middle lobe airspace opacities which are somewhat high density. No pneumothorax. No large effusion. Impression: Findings concerning for peripheral pleural scarring right middle lobe with superimposed r ight upper lobe and middle lobe pneumonia. Given the persistent high density opacities, CT of the chest recommended nonemergently.
[2019-10-01 09:27] LABS: #Basophils 0.1 thou/uL (0.0-0.2); #Eosinphils 0.6 thou/uL (0.0-0.7); #Monocytes 0.4 thou/uL (0.11-0.59); #Neutrophils 5.4 thou/uL (1.40-6.50); %Basophils 1.2 % (0.0-1.0); %Eosinophils 8.5 % (0.0-10.0); %Lymphocytes 13.8 % (21.0-51.0); %Monocytes 5.2 % (0.0-10.0); %Neutrophils 71.4 % (42.0-75.0); Hemoglobin 12.9 g/dL (12.0-16.0); Mean Corpuscular HGB CONC 32.5 g/dL (32.0-36.0); Mean Corpuscular Hemoglobin 27.6 pg (27.0-31.0); Mean Platelet Volume 8.8 fL (7.4-10.4); Platelet Count 197 thou/uL (130-400); Red Blood Cell (RBC) Count 4.68 mill/uL (4.20-5.40); White Blood Cell (WBC) Count 7.6 thou/uL (4.8-10.8)
[2019-10-01 09:50] LABS: ALT (SGPT) 14 U/L (8-55); AST (SGOT) 23 U/L (5-34); Albumin 4.7 g/dL (3.5-5.0); Alkaline Phosphatase 370 U/L (40-110); Anion Gap 26 mmol/L (10-20); BUN (Urea Nitrogen) 22 mg/dL (7.0-18.7); Bilirubin, Total 1.1 mg/dL (0.2-1.2); Calc. Creatinine Clearance 0 mL/min (70-130); Calcium 10.1 mg/dL (7.8-10.44); Carbon Dioxide 25 mmol/L (22-29); Chloride 92 mmol/L (98-107); Estimated GFR-MDRD 17; Globulin 3.6 g/dL (2.4-3.5); Glucose 278 mg/dL (70-105); Lipase Less than 4 U/L (8-78); Potassium 4.2 mmol/L (3.5-5.1); Protein, Total 8.3 g/dL (6.0-8.3); Sodium 139 mmol/L (136-145)
[2019-10-01 10:05] LABS: Bilirubin Negative (Negative); Blood, Urine Moderate (Negative); Glucose, Urine (Dipstick) 500 mg/dL (Negative); Leukocyte Trace (Negative); Nitrite Negative (Negative); Protein, Urine (Dipstick) > or equal to 300 mg/dL (Neg-Trace); Urobilinogen 0.2 mg/dL (Less than 2)
--- NOTE | 2019-10-01 10:06 | CT ---
CT BRAIN NONCONTRAST: DATE: 10/01/2019. TIME: 9:03 a.m. HISTORY: A 43-year-old female with altered mental status. FINDINGS: There is no midline shift or any other mass effect. There is no evidence of acute intracranial hemor rhage, large cortical infarct, obstructive hydrocephalus, or extraaxial fluid collection. The calvar ium is intact. IMPRESSION: 1. No acute intracranial findings. 2. Status post right orbital enucleation. 3. Abnormal left globe, filled with heterogeneous intermediate-high density material, and interspers ed with calcification. albino Lundberg POS: [facility]
[2019-10-01 10:07] LABS: CKMB 4.4 ng/mL (0-6.6)
[2019-10-01 10:08] LABS: Clarity Cloudy (Clear)
[2019-10-01 10:14] LABS: Amphetamine Not Detected (NotDetected); Barbiturates Screen Not Detected (NotDetected); Benzodiazepine Screen Not Detected (NotDetected); Cocaine Metabolite Screen Not Detected (NotDetected); Medtox Control Line Valid? VALID (VALID); Medtox Reader # READER 4; Methadone Not Detected (NotDetected); Methamphetamine Not Detected (NotDetected); Opiate Screen Not Detected (NotDetected); Oxycodone Screen Not Detected (NotDetected); Phencyclidine (PCP) Not Detected (NotDetected); THC/Cannabinoid Screen Not Detected (NotDetected); Tricyclic Screen Not Detected (NotDetected)
[2019-10-01 10:16] LABS: Other Microscopic Description Less than 2 mL rec'd
[2019-10-01 10:17] LABS: Bacteria/HPF 1+ HPF (None Seen); RBC/HPF 0-3 HPF (0-3); Squamous Epithelial 0-3 HPF (0-3); WBC/HPF 0-3 HPF (0-3)
[2019-10-01] MEDS ORDERED: hydrALAZINE 20 MG/ML VIAL ONE (10:43)
[2019-10-01] MEDS ORDERED: Aspirin 325 MG TAB ONE (11:06)
[2019-10-01] MEDS ORDERED: Aspirin Chewable 81 MG TAB ONE ×2 (11:06→11:07)
[2019-10-01] MEDS ORDERED: niCARdipine 25 MG in Sodium Chloride 0.9% 250 ML 240 ML IVPB SCH (11:30)
[2019-10-01] MEDS ORDERED: cefTRIAXone\\ROCEPHIN 2 GM VIAL ONE (11:45)
[2019-10-01] MEDS ORDERED: Ondansetron PF 4 MG/2 ML Vial ONE (11:48)
--- NOTE | 2019-10-01 12:00 | PDOC.FPRHP ---
- History of Present Illness Chief Complaint: AMS History of Present Illness: This is a 43 yo F who was sent to the ER via EMS from the [facility] for AMS. She was found to have a K of 9.3 on 09/29 and had dialysis to resolve this. She does have a hx of ESRD on HD and sees Dr. Hannon. The patient was not able to state why she came to the hospital. She endorsed some SOB initially at the [facility] that has now resolved. She is complaining of low back pain. She denied any current SOB, chest pain, abdominal pain, NVD, palpitations, fever or chills. She was able to state her name, , place and time. When asked some questions she would remain quiet and not respond. It was reported she thought at one time that there were bugs in her bed. Further hx unable to obtain due to patient mental status and uncooperativeness at times. ED Course: zofran 4mg IVP, 324 ASA, hydralazine 20mg IVP, rocephin 2g IVP, NS 500ml IV CXR showing possible PNA EKG showing LVH, prolonged QT, peaked T wave - Allergies/Adverse Reactions Allergies Allergy/AdvReac Type Severity Reaction Status Date / Time No Known Allergies Allergy Verified 03/28/19 19:35 - Home Medications Medication Instructions Recorded Confirmed Type Pantoprazole [Protonix] 40 mg PO DAILY 11/17/16 08/27/19 History hydrALAZINE HCl 1 tab PO TID 11/17/16 08/27/19 History Metoclopramide HCl [Reglan] 5 mg PO Q8HR PRN 05/21/17 08/27/19 History Amlodipine [Norvasc] 10 mg PO DAILY #30 tab 05/25/17 08/27/19 Rx AcetaZOLAMIDE [Diamox] 1 tab PO DAILY 03/11/19 08/27/19 History Atropine Sulfate [Atropine 1% 1 drop L EYE BID 03/11/19 08/27/19 History Ophth Soln] Brimonidine Tartrate [Brimonidine 1 drop L EYE TID 03/11/19 08/27/19 History Tartrate 0.15% Ophth Soln] Dicyclomine [Bentyl] 10 mg PO QID PRN 03/11/19 08/27/19 History Dorzolamide HCl 1 drop L EYE TID 03/11/19 08/27/19 History Loperamide HCl [Loperamide] 1 tablet PO PRN PRN MDD 4 Tablets 03/11/19 08/27/19 History Melatonin 10 mg PO HS 03/11/19 08/27/19 History Metoprolol Succinate 1 tab PO DAILY 03/11/19 08/27/19 History Sertraline HCl 1 tablet PO DAILY 03/11/19 08/27/19 History Timolol Maleate [Timoptic 0.5% 1 drop L EYE TID 03/11/19 08/27/19 History Ophth Soln] prednisoLONE Acetate [Econopred 1 drop L EYE DAILY 03/11/19 08/27/19 History Plus 1% Opth Susp] levETIRAcetam [Keppra] 500 mg PO BID #60 tablet 03/13/19 08/27/19 Rx Acetaminophen [Tylenol Regular 650 mg PO Q6HR 03/28/19 08/27/19 History Strength] Gabapentin [Neurontin] 1 cap PO BID 03/28/19 08/27/19 History Ondansetron HCl [Zofran] 1 tab PO Q6HR 03/28/19 08/27/19 History Saccharomyces Boulardii [Florastor] 1 cap PO BID 03/28/19 08/27/19 History Sevelamer Carbonate [Renvela] 1.6 gm PO TID-WM 03/28/19 08/27/19 History Patiromer Calcium Sorbitex 8.4 gm PO HS 08/27/19 08/27/19 History [Veltassa] Polyethylene Glycol 3350 [Miralax] 17 gm PO DAILY 08/27/19 08/27/19 History Acetaminophen [Tylenol Regular 650 mg PO Q4H PRN tab 08/30/19 Rx Strength] Saccharomyces boulardii [Florastor] 250 mg PO BID #30 cap 08/30/19 Rx Vancomycin HCl [First Vancomycin] 125 mg PO Q6H #120 ml 08/30/19 Rx - History PMHx: ESRD on HD MWF, HLD, GERD, insomnia, chronic anemia, CAD, DMI, gastroparesis, HTN, anxiety/depression PSHx: tubal ligation, dialysis shunt in LUE, I/D for abscess, hx of traumatic pneumo w/ chest tube FHx: unable to obtain Social: denies alcohol, drug or tobacco use - Review of Systems ROS unobtainable: due to mental status General: denies: fever/chills Eyes: denies: vision changes Respiratory: reports: shortness of breath. denies: cough Cardiovascular: denies: chest pain, palpitation Gastrointestinal: denies: nausea, vomiting, diarrhea, constipation, abdominal pain Skin: denies: rashes, lesions Musculoskeletal: reports: tenderness (back) Neurological: denies: weakness Psychological: reports: anxiety, depression - Vital signs BP: 186/80, Pulse: 85, Resp: 17, Temp: 98.0 (Oral), O2 sat: 100 on Room Air, Time: 10/01/2019 11:30. Weight 46kg - Physical Exam Constitutional: NAD, awake, alert and oriented (but at times uncooperative and unable to answer questions) -Constitutional: frail HEENT: normocephalic and atraumatic, grossly normal hearing (L eye - sclera erythematous with overlying film of cornea; R eye - removed), normal nasal mucosa, MMM Neck: FROM, no thyromegaly -Neck: supple, JVD present Chest: no-tender to palpation, no lesions Heart: RRR, normal S1/S2, no murmurs/rubs/gallops, pulses present, no edema Lungs: CTAB, no respiratory distress, good air movement, no wheezing, no retractions Abdomen: soft, non-tender, bowel sounds present Musculoskeletal: normal structure -Musculoskeletal: mild TTP of mid spine in lumbar region Neurological: no focal deficit, normal sensation Skin: no rash/lesions, good turgor, capillary refill <2 seconds Heme/Lymphatic: no unusual bruising or bleeding, no purpura, no petechia -Psychiatric: poor insight and judgement, unable to fully answer questions, blunted mood/ affect FMR H&P: Results - Labs Result Diagrams: 10/01/19 08:59 10/01/19 08:59 Lab results: WBC 7.6 thou/uL (4.8-10.8) 10/01/19 08:59 Hgb 12.9 g/dL (12.0-16.0) 10/01/19 08:59 Hct 39.8 % (36.0-47.0) 10/01/19 08:59 MCV 85.0 fL (78.0-98.0) 10/01/19 08:59 Plt Count 197 thou/uL (130-400) 10/01/19 08:59 Neutrophils % 71.4 % (42.0-75.0) 10/01/19 08:59 Sodium 139 mmol/L (136-145) 10/01/19 08:59 Potassium 4.2 mmol/L (3.5-5.1) 10/01/19 08:59 Chloride 92 mmol/L (98-107) L 10/01/19 08:59 Carbon Dioxide 25 mmol/L (22-29) 10/01/19 08:59 BUN 22 mg/dL (7.0-18.7) H 10/01/19 08:59 Creatinine 2.95 mg/dL (0.6-1.1) H 10/01/19 08:59 Glucose 278 mg/dL (70-105) H 10/01/19 08:59 Lactic Acid 1.2 mmol/L (0.5-2.2) 10/01/19 08:59 Calcium 10.1 mg/dL (7.8-10.44) 10/01/19 08:59 Total Bilirubin 1.1 mg/dL (0.2-1.2) 10/01/19 08:59 AST 23 U/L (5-34) 10/01/19 08:59 ALT 14 U/L (8-55) 10/01/19 08:59 Alkaline Phosphatase 370 U/L (40-110) H 10/01/19 08:59 Ammonia 18 umol/L (18-72) 10/01/19 11:01 CK-MB (CK-2) 4.4 ng/mL (0-6.6) 10/01/19 08:59 Serum Total Protein 8.3 g/dL (6.0-8.3) 10/01/19 08:59 Albumin 4.7 g/dL (3.5-5.0) 10/01/19 08:59 Lipase Less than 4 U/L (8-78) L 10/01/19 08:59 Urine Ketones 40 mg/dL (Negative) A 10/01/19 09:35 Urine Blood Moderate (Negative) A 10/01/19 09:35 Urine Nitrite Negative (Negative) 10/01/19 09:35 Ur Leukocyte Esterase Trace (Negative) H 10/01/19 09:35 Urine RBC 0-3 HPF (0-3) 10/01/19 09:35 Urine WBC 0-3 HPF (0-3) 10/01/19 09:35 Ur Squamous Epith Cells 0-3 HPF (0-3) 10/01/19 09:35 Urine Bacteria 1+ HPF (None Seen) A 10/01/19 09:35 FMR H&P: A/P - Problem List (1) Hypertensive emergency Current Visit: Yes Status: Acute Code(s): I16.1 - HYPERTENSIVE EMERGENCY (2) Diabetes mellitus with diabetic polyneuropathy Current Visit: No Status: Acute Code(s): E11.42 - TYPE 2 DIABETES MELLITUS WITH DIABETIC POLYNEUROPATHY (3) Glaucoma Current Visit: No Status: Acute Code(s): H40.9 - UNSPECIFIED GLAUCOMA (4) Anemia of renal disease Current Visit: No Status: Chronic Code(s): D63.1 - ANEMIA IN CHRONIC KIDNEY DISEASE (5) Depression Current Visit: No Status: Chronic Code(s): F32.9 - MAJOR DEPRESSIVE DISORDER , SINGLE EPISODE, UNSPECIFIED (6) Diabetes type 1, uncontrolled Current Visit: No Status: Chronic Code(s): E10.65 - TYPE 1 DIABETES MELLITUS WITH HYPERGLYCEMIA (7) Diabetic gastroparesis Current Visit: No Status: Chronic Code(s): E11.43 - TYPE 2 DIABETES W DIABETIC AUTONOMIC (POLY)NEUROPATHY; K31.84 - GASTROPARESIS (8) Dyslipidemia Current Visit: No Status: Chronic Code(s): E78.5 - HYPERLIPIDEMIA, UNSPECIFIED (9) ESRD (end stage renal disease) on dialysis Current Visit: No Status: Chronic Code(s): N18.6 - END STAGE RENAL DISEASE; Z99.2 - DEPENDENCE ON RENAL DIALYSIS (10) Hypertension Current Visit: No Status: Chronic Code(s): I10 - ESSENTIAL (PRIMARY) HYPERTENSION (11) Secondary hyperparathyroidism of renal origin Current Visit: No Status: Chronic Code(s): N25.81 - SECONDARY HYPERPARATHYROIDISM OF RENAL ORIGIN (12) Acute metabolic encephalopathy Current Visit: No Status: Resolved Code(s): G93.41 - METABOLIC ENCEPHALOPATHY - Plan #AMS 2/2 HTN Emergency Initial BP 266/110 which came down to 186/80 after hydralazine bolus in the ER. - Will admit to IMCU and continue to monitor BP - Can start Nicardipine drip if patient's BP elevates again - Will restart patient's home meds for HTN which include: amlodipine, metoprolol , acetazolamide and hydralazine - Patient due for dialysis which may be contributing to HTN. Nephro consulted, appreciate recommendations. #Elevated Troponin Initial trop 0.224, elevated from baseline - Will continue to trend troponin. Elevated troponin is expected in setting of ESRD. May come down with HD. No complaints of chest pain at this time. #Possible PNA CXR showing right lower and middle lobe PNA. Afebrile and no white count or bandemia. No cough or sputum. S/p 2g rocephin in the ER. - Procal and CRP pending. Might dc abx pending these results. #Lumbar back pain Midline back pain TTP on PE. Likely MSK pain. - Will give tylenol PRN for pain. Will give lidocaine patch PRN for severe pain if tylenol does not resolve. Can consider imaging if this does not resolve after this. Sed rate and CRP pending. #Hx of Cdiff Patient currently on precautions. Neg C diff stool from [facility] 3 days ago. - Will monitor and retest if patient is having lose stools #ESRD on HD Patient of Dr. Hannon and gets dialysis MWF. BUN/Cr at baseline. - Will consult Dr. Hannon, appreciate recs - Patient due to for dialysis #Chronic Anemia above baseline #HTN - see above for management. Will restart home meds. #HLD - aware, will restart home meds #Anxiety associated with depression - aware, will restart home meds #CAD - aware, will restart home meds #GERD - aware, will restart protonix Code: FULL Diet: Renal High protein VTE: heparin GI ppx: Protonix Dispo: admit to IMCU, LOS >48hrs. Case discussed with Dr. Ramesh FMR H&P: Upper Level - Plan Date/Time: 10/01/19 1156 I, [], have evaluated this patient and agree with findings/plan as outlined by international organizer resident. Pertinent changes/additions are listed here.
[2019-10-01] MEDS ORDERED: Dicyclomine 10 MG CAP PO PRN (12:13)
[2019-10-01 12:34] LABS: Troponin I 0.181 ng/mL (< 0.028)
[2019-10-01] MEDS ORDERED: Lidocaine 5% Patch TD PRN (12:36)
--- NOTE | 2019-10-01 13:40 | HP ---
I have examined the patient. I have discussed the case with Dr. Olive Goss and agreed with her assessment and plan. HISTORY OF PRESENT ILLNESS: Ms. Thao is a 43-year-old female with end-stage renal disease, on dialysis. She came to the ER from the [facility] for altered mental status. She was noted to have a blood pressure initially of 240/140. She was given dose of Apresoline in the ER, which dropped her systolic blood pressure to 180. She became more arousable. We were asked to see her. She also has chest x-ray evidence of possible pneumonia and has been started on antibiotics. PHYSICAL EXAMINATION: GENERAL: Now, she is slightly lethargic, but will respond to painful stimulation and tactical verbal stimulation. VITAL SIGNS: Her blood pressure is now 186 systolic over 80, pulse rate is 85, respirations 17. She is afebrile, and her room air O2 saturation is 100%. GENERAL: She is awake and alert, but does not appear to be cooperative and is not answering questions. EARS, NOSE, AND THROAT: No erythema or exudate. NECK: Supple. CARDIAC: Heart rhythm regular. No gallop or murmur noted. LUNGS: Clear. No wheezes. No rales. No respiratory distress. ABDOMEN: Mildly tender without guarding, rebound, or rigidity. NEUROLOGIC: She has no focal deficits. LABORATORY DATA: White count 7600, hemoglobin 12.9, hematocrit 39.8 with an MCV of 85. Chemistries; sodium 139, potassium 4.2, chloride 92, bicarb 25, BUN 22, creatinine 2.95. Toxicologies are negative. ASSESSMENT: Hypertensive emergency characterized by hypertensive encephalopathy, now much improved with 1 dose of hydralazine. PLAN: We will admit, monitor blood pressure, and if blood pressure does go back up,Start Cardene infusion. We will also get her dialyzed today as this is her dialysis day. We will consult Nephrology. Job ID: [id number]
[2019-10-01 14:10] VITALS: BMI 15.6
[2019-10-01] MEDS: Acetaminophen 325 MG TAB PO PRN ×2 (14:42→22:35)
[2019-10-01 15:37] LABS: Troponin I 0.164 ng/mL (< 0.028)
--- NOTE | 2019-10-01 16:25 | PRG ---
DATE OF SERVICE: 10/01/2019 SUBJECTIVE: Ms. Thao is a 43-year-old female with ESRD, fdc patient, admitted due to labile hypertension as well as mental status change. We are being consulted for maintenance hemodialysis. Recently, the patient has missed dialysis treatment. She has undergone 2 consecutive daily dialysis in the last 2 days due to volume overload as well as hyperkalemia. We are now following up this patient for her maintenance hemodialysis. She is currently undergoing hemodialysis right now. Attempting 2.5 L fluid removal. In addition, blood pressure is much improved. OBJECTIVE: VITAL SIGNS: Blood pressure is 130/70 with a heart rate of 70. GENERAL: The patient is awake and comfortable, not in overt distress. SKIN: Adequate turgor. HEENT: She has pinkish conjunctivae. Anicteric sclerae. Decreased visual acuity. 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 NECK: No neck mass. No carotid bruits. No JVD. LUNGS: Clear breath sounds. No wheezing. No crackles. HEART: Normal sinus rhythm. No murmur. No gallops. No rubs. ABDOMEN: Globular, soft, and nontender. No masses. EXTREMITIES: No edema. No deformities. MEDICATIONS: Medications of October 01, 2019, were reviewed. LABORATORY DATA: Laboratories of October 01, 2019: White count 7.6, hemoglobin 12.9. Sodium 139, potassium 4.2, chloride 92, carbon dioxide 25, BUN 22, creatinine 2.95, glucose 278. ASSESSMENT AND PLAN: 1. End-stage renal disease, stable. Continue current hemodialysis regimen on Sunday, Sunday, and Sunday. I will do a 3-hour hemodialysis today, and we will resume her back on a 3.5-hour hemodialysis schedule this coming Sunday. Attempting fluid removal 2.5 L as tolerated. 2. Labile hypertension, much improved today with dialysis. 3. Decreased mentation - much improved. Continue supportive care. Job ID: [id number]
[2019-10-01] MEDS: Brimonidine Tartrate 0.2% Ophth Soln 5 ml Bottle L EYE SCH ×2 (16:28→20:19)
[2019-10-01] MEDS: Heparin 5,000 UNITS/ML VIAL SC SCH ×2 (16:29→20:09)
[2019-10-01] MEDS: hydrALAZINE 25 MG TAB PO SCH ×3 (16:29→20:18)
[2019-10-01] MEDS: Dorzolamide HCl 2% Ophth Soln 10 ml Bottle L EYE SCH ×2 (16:29→20:19)
[2019-10-01] MEDS: Timolol 0.5% Ophth Soln 5 ml Bottle L EYE SCH ×2 (16:30→20:18)
[2019-10-01] MEDS: Sevelamer Carbonate 800 MG TAB PO SCH (17:13)
[2019-10-01] MEDS: Gabapentin 300 MG CAP PO SCH (20:18)
[2019-10-01] MEDS: levETIRAcetam 500 MG TAB PO SCH (20:18)
[2019-10-01] MEDS: Saccharomyces boulardii 250 MG CAP PO SCH (20:18)
[2019-10-01] MEDS: Atropine Sulfate 1% Ophth Soln 5 ml Bottle L EYE SCH (20:19)
[2019-10-01] MEDS ORDERED: Melatonin 3 MG TAB PO SCH (21:00)
[2019-10-01] MEDS ORDERED: (Patiromer Calcium Sorbitex [Veltassa] 8.4 GM) PO SCH (21:00)
[2019-10-02] MEDS ORDERED: hydrALAZINE 20 MG/ML VIAL SLOW IVP PRN ×2 (00:56→10:50)
[2019-10-02 04:28] LABS: #Basophils 0.1 thou/uL (0.0-0.2); #Eosinphils 0.4 thou/uL (0.0-0.7); #Lymphocytes 1.5 thou/uL (1.20-3.40); #Monocytes 0.5 thou/uL (0.11-0.59); #Neutrophils 3.9 thou/uL (1.40-6.50); %Basophils 1.3 % (0.0-1.0); %Eosinophils 6.9 % (0.0-10.0); %Lymphocytes 23.9 % (21.0-51.0); %Monocytes 7.3 % (0.0-10.0); %Neutrophils 60.7 % (42.0-75.0); Hemoglobin 12.2 g/dL (12.0-16.0); Mean Corpuscular HGB CONC 31.3 g/dL (32.0-36.0); Mean Corpuscular Hemoglobin 26.9 pg (27.0-31.0); Mean Corpuscular Volume 85.9 fL (78.0-98.0); Mean Platelet Volume 8.4 fL (7.4-10.4); Platelet Count 246 thou/uL (130-400); RBC Distribution Width 16.4 % (11.5-14.5); Red Blood Cell (RBC) Count 4.51 mill/uL (4.20-5.40); White Blood Cell (WBC) Count 6.4 thou/uL (4.8-10.8)
[2019-10-02 04:53] LABS: ALT (SGPT) 10 U/L (8-55); AST (SGOT) 19 U/L (5-34); Albumin 4.4 g/dL (3.5-5.0); Alkaline Phosphatase 344 U/L (40-110); Anion Gap 33 mmol/L (10-20); BUN (Urea Nitrogen) 13 mg/dL (7.0-18.7); Bilirubin, Total 0.5 mg/dL (0.2-1.2); Calc. Creatinine Clearance 20 mL/min (70-130); Calcium 9.8 mg/dL (7.8-10.44); Carbon Dioxide 17 mmol/L (22-29); Chloride 93 mmol/L (98-107); Estimated GFR-MDRD 24; Globulin 3.4 g/dL (2.4-3.5); Glucose 235 mg/dL (70-105); Potassium 3.7 mmol/L (3.5-5.1); Protein, Total 7.8 g/dL (6.0-8.3); Sodium 139 mmol/L (136-145)
--- NOTE | 2019-10-02 05:27 | PDOC.FM ---
- Subjective Subjective: Patient sleeping when I walked in the room, uncooperative when awakened. Sitter overnight stated that she would awaken at times and try to pull out her IVs. Discussed with patient that it is important for her to take her medications today so we can control her blood pressure and help control her pain. Complaining of back pain and being hungry this morning. - Objective Vital Signs & Weight: Vital Signs (12 hours) Temp Pulse Resp BP BP Pulse Ox 10/02/19 04:00 97.1 F L 89 16 153/61 H 100 10/02/19 01:50 74 129/66 10/02/19 01:03 88 129/87 10/02/19 00:00 189/85 H 10/01/19 20:18 88 129/87 10/01/19 19:00 98.2 F 88 16 129/87 99 Weight Weight 37.5 kg Most Recent Monitor Data Heart Rate from ECG 87 NIBP 166/70 NIBP BP-Mean 102 Respiration from ECG 17 SpO2 95 Result Diagrams: 10/02/19 04:02 10/02/19 04:02 EKG Reviewed by me: Yes (sinus in the 80s) Phys Exam - Physical Examination Uncooperative HEENT: moist MMs right eye absent, left eye opacified Neck: full ROM Respiratory: clear to auscultation bilateral Cardiovascular: RRR, no significant murmur Gastrointestinal: soft, non-tender Musculoskeletal: no edema, pulses present Neurological: moves all 4 limbs Deviation from normal: uncooperative Skin: normal turgor Deviation from normal: brusing on lower extremities Dx/Plan (1) Hypertensive emergency Code(s): I16.1 - HYPERTENSIVE EMERGENCY Status: Acute (2) Diabetes mellitus with diabetic polyneuropathy Code(s): E11.42 - TYPE 2 DIABETES MELLITUS WITH DIABETIC POLYNEUROPATHY Status : Acute (3) Anemia of renal disease Code(s): D63.1 - ANEMIA IN CHRONIC KIDNEY DISEASE Status: Chronic (4) Diabetic gastroparesis Code(s): E11.43 - TYPE 2 DIABETES W DIABETIC AUTONOMIC (POLY)NEUROPATHY; K31.84 - GASTROPARESIS Status: Chronic (5) ESRD (end stage renal disease) on dialysis Code(s): N18.6 - END STAGE RENAL DISEASE; Z99.2 - DEPENDENCE ON RENAL DIALYSIS Status: Chronic (6) Hypertension Code(s): I10 - ESSENTIAL (PRIMARY) HYPERTENSION Status: Chronic (7) C. difficile colitis Status: Acute (8) Glaucoma Code(s): H40.9 - UNSPECIFIED GLAUCOMA Status: Acute (9) Depression Code(s): F32.9 - MAJOR DEPRESSIVE DISORDER, SINGLE EPISODE, UNSPECIFIED Status : Chronic (10) Noncompliance with diet and medication regimen Code(s): Z91.11 - PATIENT'S NONCOMPLIANCE WITH DIETARY REGIMEN; Z91.14 - PATIENT 'S OTHER NONCOMPLIANCE WITH MEDICATION REGIMEN Status: Chronic (11) UTI (urinary tract infection) Status: Acute - Plan Plan: #AMS 2/2 HTN Emergency Initial BP 266/110 which came down to 186/80 after hydralazine bolus in the ER. - Patient's BP 129-189/61-85 overnight - It appears that patient did not take many of her home medications yesterday due to either patient being in dialysis or because of patient refusal - Encouraged patient to take home meds for HTN which include: amlodipine, metoprolol, acetazolamide and hydralazine - Patient had dialysis 10/01 which likely helped with HTN; back on MWF schedule. Nephro consulted, appreciate recommendations. #Elevated Troponin Initial trop 0.224, elevated from baseline - Trop 0.224>0.181>0.164. Trops came down with hemodialysis as expected. #Possible PNA CXR showing right lower and middle lobe PNA. Afebrile and no white count or bandemia. No cough or sputum. S/p 2g rocephin in the ER. - Procal indeterminate 0.6, 0.69 - CRP elevated at 5.07, ESR elevated at 66 - Consider chest CT today per CXR recs #DM1 -patient is not aware of her insulin dosing -ACHS accuchecks -hyperglycemia protocol -ISS #Lumbar back pain Midline back pain TTP on PE. Likely MSK pain. - Patient continues to have back pain this morning - tylenol prn for pain, ecouraged patient to be participatory with taking her pain medication - lidocaine patch PRN for severe pain #Hx of Cdiff Patient currently on precautions. [facility]. - Patient denies current loose stools - Will monitor and retest if patient is having loose stools #ESRD on HD Patient of Dr. Hannon and gets dialysis MWF. BUN/Cr at baseline. - Dr. Hannon consulted, appreciate recs - Patient had dialysis 10/02, will resume MWF schedule #Chronic Anemia above baseline #HTN - see above for management. Will restart home meds today and encourage patient to take them #HLD - home meds #Anxiety associated with depression - home meds #CAD - home meds #GERD - protonix #Glaucoma - continue home meds #UTI -s/p 2g rocephin in the ED Code: FULL Diet: Renal High protein VTE: heparin GI ppx: Protonix Dispo: telemetry for cardiac monitoring; BP management today with home meds Addendum - Attending - Attending Attestation Date/Time: 10/02/19 1207 I personally evaluated the patient and discussed the management with Dr. Sarabia I agree with the History, Examination, Assessment and Plan documented above with any addition or exceptions noted below - Patient not responded but has been intermittently awakening and refusing meds or agitated with nurses. Afebrile VSS. A/P: 1) Hypertensive emergency- resolved. Resume home meds. 2) ESRD- continue dialysis Stable for transfer [facility].
[2019-10-02] MEDS ORDERED: HumaLOG 300 UNITS/3 ML VIAL SC PRN (07:01)
[2019-10-02] MEDS ORDERED: Dextrose 50% Abboject 50 ML SYRINGE SLOW IVP PRN (07:01)
[2019-10-02] MEDS ORDERED: Dextrose 5% in Water 1,000 ML IV PRN (07:01)
[2019-10-02] MEDS: Saccharomyces boulardii 250 MG CAP PO SCH (08:28)
[2019-10-02] MEDS: Gabapentin 300 MG CAP PO SCH (08:28)
[2019-10-02] MEDS: hydrALAZINE 25 MG TAB PO SCH ×2 (08:28→16:29)
[2019-10-02] MEDS: levETIRAcetam 500 MG TAB PO SCH (08:28)
[2019-10-02] MEDS: Heparin 5,000 UNITS/ML VIAL SC SCH ×2 (08:29→16:29)
[2019-10-02] MEDS: Brimonidine Tartrate 0.2% Ophth Soln 5 ml Bottle L EYE SCH ×2 (08:30→16:11)
[2019-10-02] MEDS: Timolol 0.5% Ophth Soln 5 ml Bottle L EYE SCH ×2 (08:31→16:11)
[2019-10-02] MEDS: Sevelamer Carbonate 800 MG TAB PO SCH ×2 (08:40→14:01)
[2019-10-02] MEDS ORDERED: Amlodipine 10 MG TAB PO SCH (09:00)
[2019-10-02] MEDS ORDERED: prednisoLONE 1% Ophth Susp 5 ml Bottle L EYE SCH (09:00)
[2019-10-02] MEDS ORDERED: AcetaZOLAMIDE 250 MG TAB PO SCH (09:00)
[2019-10-02] MEDS: Atropine Sulfate 1% Ophth Soln 5 ml Bottle L EYE SCH (09:11)
[2019-10-02] MEDS: Dorzolamide HCl 2% Ophth Soln 10 ml Bottle L EYE SCH ×2 (09:11→16:11)
--- NOTE | 2019-10-02 09:36 | PRG ---
DATE OF SERVICE: 10/02/2019 SUBJECTIVE: Ms. Thao is a 43-year-old female with ESRD and followed up by the [facility] for her maintenance hemodialysis. She underwent hemodialysis without any difficulty yesterday. She was initially admitted for elevated blood pressure and confusion. This morning, she is less confused, but she is still disoriented to place and time. No complaints of chest pain or shortness of breath. OBJECTIVE: VITAL SIGNS: Blood pressure 130/113 - before BP medications taken , heart rate 89, respiratory rate 16, temperature 97.1, pulse ox 95%. GENERAL: She is awake, comfortable, not in distress. SKIN: Adequate turgor. HEENT: She has pinkish conjunctivae. Anicteric sclerae. NECK: No neck mass. No carotid bruits. No JVD. She has decreased visual activity. Right eye enucleation. LUNGS: Clear breath sounds. No wheezing. No crackles. HEART: Normal sinus rhythm. No murmur. No gallops. No rubs. ABDOMEN: Globular, soft, nontender. No masses. EXTREMITIES: No edema. No deformities. MEDICATIONS: Medications of October 02, 2019, was reviewed. LABORATORY DATA: Laboratories of October 02, 2019; white count 6.4, hemoglobin 12.2. Sodium 139, potassium 3.7, chloride 93, carbon dioxide 17, BUN 13, creatinine 2.21, glucose 235. LFT is normal except for alkaline phosphatase of 344. Procalcitonin 0.69. ASSESSMENT AND PLAN: 1. Labile hypertension, stable. Continue current BP medications. 2. End-stage renal disease, stable, tolerating current hemodialysis regimen. We will continue her Sunday, Sunday, and Sunday hemodialysis. Again, fluid removal only as tolerated. 3. Mental status change. Slowly improving Currently, on Seroquel. Continue supportive care. Job ID: [id number] [facility]
--- NOTE | 2019-10-02 12:23 | RAD ---
EXAM: Chest one view: HISTORY: Altered mental status COMPARISON: 10/01/2019 FINDINGS: Stable minimal increased linear and interstitial changes, particularly in the right midlung zone. Heart size: Within normal limits. Lungs: Clear of acute process. No evidence for confluent pneumonia, pleural effusion, acute edema, or pneumothorax, or other signifi cant acute process. IMPRESSION: No significant acute intrathoracic disease. Stable exam.
[2019-10-02 16:01] VITALS: TEMP 97
[2019-10-02 16:08] VITALS: BP 149/68
--- NOTE | 2019-10-03 03:59 | PQF ---
LEILA CHAUHAN [place] MD [id number] [id number] CLINICAL DOCUMENTATION CLARIFICATION FORM: POST DISCHARGE Addendum to original discharge summary date: ____ Late entry note date: __ DATE: 10/03/19 ATTN: Justin Noel Please exercise your independent, professional judgment in responding to the clarification form. Clinical indicators are provided on the bottom of this form for your review Can you please further specify the diagnosis based on the clinical indicators below? Please check appropriate box(es): [ ] Sepsis due to: (Pna, UTI, gangrenous gall bladder, etc.) [ ] SIRS due to non-infectious process (please specify etiology) [ ] with organ dysfunction [ ] without organ dysfunction [ ] Localized infection without sepsis [ x] Other diagnosis [ ] Unable to determine In addition, please specify: Present on Admission (POA): [ ] Yes [ ] No [x ] Unable to determine For continuity of documentation, please document condition throughout progress notes and discharge summary. Thank You. CLINICAL INDICATORS - SIGNS / SYMPTOMS / LABS ED Notes 10/01 "Patient presents for evaluation of mental status changes" HP 10/01 "acute metabolic encephalopathy" HP 10/01 "CXR showing right lower and middle lobe PNA" Labs Anion Gap: 10/01=26 10/02=33 PN 10/02-UTI RISK FACTORS ED Notes 10/01-DM ED Notes 10/01-ESRD HP 10/01-hx of Cdiff HP 10/01-PNA PN 10/02-UTI TREATMENTS: Collected 10/01-Chest Xray FEB 03-Vancomycin 25mg IV FEB 03-Rocephin 2gm IV FEB 03-IVF (This form is maintained as a part of the permanent medical record) 2014 [employer] All Rights Reserved Tino [email or web address] [not provided] MTDD
--- NOTE | 2019-10-03 13:21 | DIS ---
DATE OF ADMISSION: 10/01/2019 DATE OF DISCHARGE: 10/02/2019 ADMITTING RESIDENT: Olive Goss MD ADMITTING ATTENDING: Archana Rodriguez MD. DISCHARGE ATTENDING: Archana Rodriguez MD. DISCHARGE RESIDENT: Aleah Sarabia MD. CONSULTS: OT, PT, Nephrology (Dr. Hannon). PROCEDURES: Dialysis. IMAGIN. Brain CT: No acute intracranial findings, status post right orbital enucleation, abnormal left globe, heterogeneous intermediate/high-density material, and interspersed calcifications. 2. Chest x-ray: Findings concerning for peripheral pleural scarring of right middle lobe with superimposed right upper lobe and middle lung lobe pneumonia. 3. Repeat chest x-ray: No significant acute intrathoracic disease. PRIMARY DIAGNOSES: Altered mental status due to hypertensive emergency, elevated troponins, possible pneumonia. SECONDARY DIAGNOSES: Lumbar back pain; type 1 diabetes; history of Clostridium difficile; end-stage renal disease, on hemodialysis; chronic anemia; hypertension; hyperlipidemia; anxiety associated with depression; coronary artery disease; gastroesophageal reflux disease; glaucoma; urinary tract infection, asymptomatic. DISCHARGE MEDICATIONS: 1. 650 mg acetaminophen p.o. q.4 hours p.r.n. 2. 250 mg Diamox p.o. daily. 3. 10 mg amlodipine p.o. daily. 4. 1 drop atropine sulfate, left eye b.i.d. 5. 1 drop brimonidine tartrate left eye t.i.d. 6. 10 mg Bentyl p.o. q.6 hours p.r.n. 7. 1 drop dorzolamide hydrochloride left eye t.i.d. 8. 300 mg gabapentin p.o. b.i.d. 9. 25 mg hydralazine p.o. t.i.d. 10. 2 mg loperamide hydrochloride p.o. p.r.n. 11. 10 mg melatonin p.o. at bedtime. 12. 5 mg metoclopramide hydrochloride p.o. q.8 hours p.r.n. 13. 50 mg metoprolol succinate p.o. daily. 14. 4 mg Zofran p.o. q.6 hours. 15. 40 mg Protonix p.o. daily. 16. 17 g MiraLAX. 17. 50 mg sertraline p.o. daily. 18. 1.6 g sevelamer carbonate p.o. t.i.d. with meals. 19. 1 drop timolol maleate left eye t.i.d. Discontinued medications: 1. Sliding scale insulin. 2. Heparin. 3. Hydralazine p.r.n. HISTORY OF PRESENT ILLNESS/HOSPITAL COURSE: The patient is a 43-year-old female who was sent to the ER via EMS from the group home in [facility] for altered mental status. She was found to have a potassium of 9.3 on 09/29 and had dialysis to resolve this. She does have a history of end-stage renal disease, on hemodialysis and is seeing Dr. Hannon. She had endorsed some shortness of breath initially at the group home that had resolved, but continued to complain of low back pain in the ER. She was admitted for hypertensive emergency with initial blood pressure of 266/110 that came down to 186/80 with hydralazine. She was also found to have a troponin of 0.224, likely due to fluid overload with elevated troponins expected in patients with end-stage renal disease. The patient was due for dialysis and Dr. Hannon from Nephrology was consulted. Troponins were trended and did end up coming down after the initial elevation of 0.224. There was some concern for pneumonia based on the initial chest x-ray, though patient did not endorse a cough or fevers. Repeat chest x-ray on day of discharge was negative, so patient was not treated. The patient's group home insulin dosing was unknown and so patient was placed on sliding scale insulin while hospitalized for her type 1 diabetes. Insulin is not listed in the discharge medications, but her group home insulin regimen should be restarted upon return to the group home. The patient was largely disagreeable during her hospitalization, often refusing her medications or refusing to answer questions. On the day of discharge, status post dialysis, she was in stable condition, with blood pressure in the 140s/60s. The patient was encouraged to continue to take home blood pressure medications and follow her dialysis schedule. DISPOSITION: Guarded. DISCHARGE INSTRUCTIONS: 1. Location: [facility]. 2. Diet: Renal, high-protein, diabetic diet. 3. Activity: As tolerated. 4. Follow up with PCP, Dr. Brower. *Please note Dr. Lin is patient's PCP, not Dr. Thompson. The patient was admitted under the assumption that patient's primary care doctor is Dr. Thompson and was later found to have a primary care doctor, Dr. Brower. Job ID: [id number] MTDD
== END 2019-10-02 17:56 | DRG 77 ==
LOC: ERS 08:09 → IMCU/EMU 11:35 → 2NO 18:46
PROVIDERS: ADMIT Family Medicine; ATTEND Family Medicine
PROC: 5A1D70Z Performance of Urinary Filtration, Intermittent, Less than 6 Hours Per Day (ICD-10-PCS; principal; 2019-10-01)
DX: I67.4 Hypertensive encephalopathy (principal); N18.6 End stage renal disease; G93.41 Metabolic encephalopathy; J18.9 Pneumonia, unspecified organism; I16.1 Hypertensive emergency; N25.81 Secondary hyperparathyroidism of renal origin; I12.0 Hypertensive chronic kidney disease with stage 5 chronic kidney disease or end stage renal disease; N39.0 Urinary tract infection, site not specified; I25.10 Atherosclerotic heart disease of native coronary artery without angina pectoris; E10.43 Type 1 diabetes mellitus with diabetic autonomic (poly)neuropathy; K31.84 Gastroparesis; D63.1 Anemia in chronic kidney disease; K21.9 Gastro-esophageal reflux disease without esophagitis; E10.22 Type 1 diabetes mellitus with diabetic chronic kidney disease; Z98.51 Tubal ligation status; G47.00 Insomnia, unspecified; E10.65 Type 1 diabetes mellitus with hyperglycemia; E10.42 Type 1 diabetes mellitus with diabetic polyneuropathy; F41.8 Other specified anxiety disorders; H40.9 Unspecified glaucoma; Z99.2 Dependence on renal dialysis; Z79.52 Long term (current) use of systemic steroids; Z79.899 Other long term (current) drug therapy; Z91.11 Patient's noncompliance with dietary regimen
CPT/HCPCS: 36415; 36416; 51701; 70450; 71045; 80053; 80306; 81003; 81015; 82140; 82330; 82435; 82553; 82565; 82803; 82947; 83605; 83690; 84132; 84145; 84295; 84443; 84484; 85025; 85652; 86140; 87040; 87077; 87086; 87186; 90935; 93005; 94760; 96365; 96375; G0257; J0360; J0696; J1644; J2405; J7050

== ENCOUNTER 2019-10-24 17:07 | Emergency (ER) | payer OTHER ==
[2019-10-24 17:56] LABS: #Eosinphils 0.3 thou/uL (0.0-0.7); #Lymphocytes 0.9 thou/uL (1.20-3.40); #Monocytes 0.3 thou/uL (0.11-0.59); #Neutrophils 3.4 thou/uL (1.40-6.50); %Basophils 0.8 % (0.0-1.0); %Eosinophils 6.3 % (0.0-10.0); %Lymphocytes 18.7 % (21.0-51.0); %Monocytes 6.2 % (0.0-10.0); Hemoglobin 11.3 g/dL (12.0-16.0); Mean Corpuscular HGB CONC 33.6 g/dL (32.0-36.0); Mean Corpuscular Hemoglobin 28.5 pg (27.0-31.0); Mean Corpuscular Volume 84.7 fL (78.0-98.0); Mean Platelet Volume 8.7 fL (7.4-10.4); Platelet Count 164 thou/uL (130-400); RBC Distribution Width 17.3 % (11.5-14.5); Red Blood Cell (RBC) Count 3.98 mill/uL (4.20-5.40); White Blood Cell (WBC) Count 4.9 thou/uL (4.8-10.8)
[2019-10-24 18:13] LABS: ALT (SGPT) 7 U/L (8-55); AST (SGOT) 19 U/L (5-34); Albumin 4.2 g/dL (3.5-5.0); Alkaline Phosphatase 339 U/L (40-110); Anion Gap 19 mmol/L (10-20); BUN (Urea Nitrogen) 16 mg/dL (7.0-18.7); Bilirubin, Total 0.8 mg/dL (0.2-1.2); Calc. Creatinine Clearance 0 mL/min (70-130); Calcium 9.6 mg/dL (7.8-10.44); Carbon Dioxide 29 mmol/L (22-29); Chloride 95 mmol/L (98-107); Estimated GFR-MDRD 17; Globulin 3.4 g/dL (2.4-3.5); Glucose 235 mg/dL (70-105); Potassium 3.1 mmol/L (3.5-5.1); Protein, Total 7.6 g/dL (6.0-8.3); Sodium 140 mmol/L (136-145)
--- NOTE | 2019-10-24 18:22 | RAD ---
RADIOGRAPH CHEST 1 VIEW: DATE: 10/24/2019 TIME: 6:14 PM HISTORY: 44-year-old female with altered mental status. Concern for aspiration. COMPARISON: 10/02/2019 FINDINGS: New finding of cardiomegaly. Interstitial densities at right mid and lower lung zones, which were pre sent on the prior study. These appear slightly worse on the current study, especially at the base of right lower lobe. These differences may or may not be due to the shallower inspiration on the curr ent study. No consolidation in left lung. No pneumothorax. IMPRESSION: 1) interval development of mild cardiomegaly. 2) probably chronic interstitial densities in the right midlung zone. Questionable worsening at right base.
== END 2019-10-24 21:05 | disposition home or self-care (01) ==
LOC: ERS 17:07
DX: R41.82 Altered mental status, unspecified (principal); I25.10 Atherosclerotic heart disease of native coronary artery without angina pectoris; E10.40 Type 1 diabetes mellitus with diabetic neuropathy, unspecified; D64.89 Other specified anemias; E10.22 Type 1 diabetes mellitus with diabetic chronic kidney disease; G47.00 Insomnia, unspecified; E21.3 Hyperparathyroidism, unspecified; F41.9 Anxiety disorder, unspecified; F32.9 Major depressive disorder, single episode, unspecified; E10.43 Type 1 diabetes mellitus with diabetic autonomic (poly)neuropathy; K31.84 Gastroparesis; Z79.899 Other long term (current) drug therapy
CPT/HCPCS: 71045; 80053; 85025; 93005

== ENCOUNTER 2019-11-10 11:55 | Observation (INO) | payer OTHER ==
[2019-11-10 15:04] LABS: #Basophils 0.1 thou/uL (0.0-0.2); #Lymphocytes 1.7 thou/uL (1.20-3.40); #Monocytes 0.3 thou/uL (0.11-0.59); #Neutrophils 4.3 thou/uL (1.40-6.50); %Eosinophils 13.1 % (0.0-10.0); %Lymphocytes 23.6 % (21.0-51.0); %Monocytes 3.7 % (0.0-10.0); %Neutrophils 58.7 % (42.0-75.0); Hemoglobin 11.5 g/dL (12.0-16.0); Mean Corpuscular HGB CONC 32.9 g/dL (32.0-36.0); Mean Corpuscular Hemoglobin 28.9 pg (27.0-31.0); Mean Corpuscular Volume 87.8 fL (78.0-98.0); Mean Platelet Volume 10.5 fL (7.4-10.4); Platelet Count 94 thou/uL (130-400); RBC Distribution Width 16.3 % (11.5-14.5); White Blood Cell (WBC) Count 7.4 thou/uL (4.8-10.8)
[2019-11-10 15:23] LABS: Anisocytosis SLIGHT = 6-15 cells (100X) (0-5/hpf); MDiff Complete? YES; Platelet Morphology Comment Appears Decreased; Polychromasia SLIGHT = 2-3 cells (100X) (0-2/hpf)
[2019-11-10 15:24] LABS: ALT (SGPT) Less than 7 U/L (8-55); AST (SGOT) 16 U/L (5-34); Albumin 3.9 g/dL (3.5-5.0); Alkaline Phosphatase 157 U/L (40-110); Anion Gap 19 mmol/L (10-20); BUN (Urea Nitrogen) 57 mg/dL (7.0-18.7); Bilirubin, Total 0.5 mg/dL (0.2-1.2); CK (CPK) 33 U/L (29-168); Calc. Creatinine Clearance 0 mL/min (70-130); Carbon Dioxide 30 mmol/L (22-29); Chloride 93 mmol/L (98-107); Estimated GFR-MDRD 7; Globulin 2.8 g/dL (2.4-3.5); Glucose 261 mg/dL (70-105); Potassium 5.4 mmol/L (3.5-5.1); Protein, Total 6.7 g/dL (6.0-8.3); Sodium 137 mmol/L (136-145)
--- NOTE | 2019-11-10 16:39 | CT ---
NONCONTRAST HEAD CT: History: Headache, hypertension. Comparison: 10-01-19 FINDINGS: Chronic changes to both globes. Calvarium is intact. Mild mucosal thickening of the posterior left ethmoid air cells and bilateral sp henoid sinuses. No parenchymal hemorrhage or extraaxial hematoma. No midline shift. Basilar cisterns are patent. Brain volume is age appropriate. Cortical herrmann white m atter differentiation is preserved. No hydrocephalus. IMPRESSION: No acute intracranial process. POS: CET
[2019-11-10] MEDS ORDERED: Acetaminophen 325 MG TAB PO PRN (17:23)
[2019-11-10] MEDS ORDERED: Acetaminophen 650 MG Suppository PR PRN (17:23)
[2019-11-10] MEDS ORDERED: Ondansetron PF 4 MG/2 ML Vial IVP PRN (17:23)
[2019-11-10] MEDS ORDERED: Ondansetron ODT 4 MG TAB PO PRN (17:23)
[2019-11-10] MEDS ORDERED: Dextrose 50% Abboject 50 ML SYRINGE SLOW IVP PRN (17:26)
[2019-11-10] MEDS ORDERED: Dextrose 5% in Water 1,000 ML IV PRN (17:26)
[2019-11-10] MEDS ORDERED: HumaLOG 300 UNITS/3 ML VIAL SC PRN ×2 (17:26)
[2019-11-10 17:54] LABS: HBSAg Index 0.16 S/CO (0-0.99); Hep B Surf Ag Non-Reactive S/CO (NonReactive)
--- NOTE | 2019-11-10 18:04 | PDOC.HHP ---
Hospitalist HPI - History of Present Illness Headache and diarrhea History of Present Illness: Ms. Thao is a 44 year old woman who states she is here because she feels unwell. She states "the long term wouldnt bring me so I told them (EMS) to bring me here". She was picked up by EMS for her hemodialysis appointment. She reports having a severe headache and also reports having a significant amount of loose stools. Patient is minimally communicative. States she doesnt remember when her loose stools started. Doesnt know how many she has had daily. Today she has had 1 loose bowel movement. Denies any N/V. She has been seen by Dr. Hannon and will be undergoing dialysis this evening. It appears from previous records that she has had multiple recurrences of c.diff colitis. She was treated in 03/2019 with fecal transplant and it appears she did well until 08/2019 when she returned with excessive diarrhea and was treated with Vancomycin. Testing at that time was positive. She has not been on antibiotics recently. ED Course: In the ED she was noted to have a significantly elevated BP of 220/110 at initial presentation. This reportedly improved to 167/[address] interventions[address] A CT head was done showing no acute changes. Labs notable for a WCC of 7.4, Hgb 11.5, Platelets 94, Neutrophils 58% Na+ 137, K+ 5.4, BUN 57, Creat 6.30, GFR 7 (renal function worse from baseline) . CK 33. LFTs normal, however alk phos elevated at 157. BNP elevated at 1410.1 Hospitalist ROS - Review of Systems Constitutional: reports: malaise Eyes: reports: other (missing right eye, left eye glaucoma) ENT: denies: ear pain, ear discharge, nose pain, nose discharge, nose congestion , mouth pain, mouth swelling, throat pain, throat swelling, other Respiratory: denies: cough, dry, shortness of breath, hemoptysis, SOB with excertion, pleuritic pain, sputum, wheezing, other Cardiovascular: denies: chest pain, palpitations, orthopnea, paroxysmal noc. dyspnea, edema, light headedness, other Gastrointestinal: reports: abdominal pain, diarrhea Musculoskeletal: denies: neck pain, shoulder pain, arm pain, back pain, hand pain, leg pain, foot pain, other Neurological: reports: weakness (baseline) Hospitalist History - Past Medical History Cardiac: reports: CAD, HTN [employer]: reports: Peripheral neuropathy Gastrointestinal: reports: GERD, Other (Gastroparesis Colitis, multiple recurrences of C. 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 ENT: dry oral mucosa Neck: supple Heart: RRR, no murmur, no gallops Respiratory: CTAB, no wheezes, no rales, no ronchi, normal chest expansion, no tachypnea Gastrointestinal - other findings: some discomfort with palpation, slightly distended, hyperactive bowel sound Extremities: no edema Skin: normal turgor, no lesions, no rashes Musculoskeletal: diffuse muscle atrophy (bilateral lower legs) Psychiatric: A&O x 3 Psychiatric - other findings: minimally communicative Hospitalist Results - Labs Result Diagrams: 11/10/19 14:19 11/10/19 14:19 Lab results: WBC 7.4 thou/uL (4.8-10.8) 11/10/19 14:19 Hgb 11.5 g/dL (12.0-16.0) L 11/10/19 14:19 Hct 35.1 % (36.0-47.0) L 11/10/19 14:19 MCV 87.8 fL (78.0-98.0) 11/10/19 14:19 Plt Count 94 thou/uL (130-400) L 11/10/19 14:19 Neutrophils % 58.7 % (42.0-75.0) 11/10/19 14:19 Sodium 137 mmol/L (136-145) 11/10/19 14:19 Potassium 5.4 mmol/L (3.5-5.1) H 11/10/19 14:19 Chloride 93 mmol/L (98-107) L 11/10/19 14:19 Carbon Dioxide 30 mmol/L (22-29) H 11/10/19 14:19 BUN 57 mg/dL (7.0-18.7) H 11/10/19 14:19 Creatinine 6.30 mg/dL (0.6-1.1) H 11/10/19 14:19 Glucose 261 mg/dL (70-105) H 11/10/19 14:19 Calcium 9.0 mg/dL (7.8-10.44) 11/10/19 14:19 Total Bilirubin 0.5 mg/dL (0.2-1.2) 11/10/19 14:19 AST 16 U/L (5-34) 11/10/19 14:19 ALT Less than 7 U/L (8-55) L 11/10/19 14:19 Alkaline Phosphatase 157 U/L (40-110) H 11/10/19 14:19 Creatine Kinase 33 U/L (29-168) 11/10/19 14:19 B-Natriuretic Peptide 1410.1 pg/mL (0-100) H 11/10/19 14:19 Serum Total Protein 6.7 g/dL (6.0-8.3) 11/10/19 14:19 Albumin 3.9 g/dL (3.5-5.0) 11/10/19 14:19 Hospitalist H&P A/P - Problem (1) Headache Code(s): R51 - HEADACHE Status: Acute (2) Diarrhea Code(s): R19.7 - DIARRHEA, UNSPECIFIED Status: Acute (3) History of Clostridioides difficile colitis Code(s): Z86.19 - PERSONAL HISTORY OF OTHER INFECTIOUS AND PARASITIC DISEASES Status: Chronic (4) Diabetes mellitus with diabetic polyneuropathy Code(s): E11.42 - TYPE 2 DIABETES MELLITUS WITH DIABETIC POLYNEUROPATHY Status : Chronic (5) ESRD (end stage renal disease) on dialysis Code(s): N18.6 - END STAGE RENAL DISEASE; Z99.2 - DEPENDENCE ON RENAL DIALYSIS Status: Chronic (6) Hypertension Code(s): I10 - ESSENTIAL (PRIMARY) HYPERTENSION Status: Chronic (7) Hyperkalemia Code(s): E87.5 - HYPERKALEMIA Status: Acute - Plan Plan: Patient seen by Dr. Hannon who was consulted by ED physician. She will have dialysis this evening. Continue to monitor electrolytes. BP improved, tylenol for GA. Given hx of c. diff colitis, will treat prophylactically with PO Vancomycin. Pharmacy to help with renal dosing. Stool studies ordered. Monitor blood glucose, initiate insulin sliding scale. Baseline CXR Respiratory viral panel GI prophylaxis. DVT prophylaxis with mechanical SCDs. CODE STATUS: FULL === ATTENDING ADDENDUM: patient seen/examined independently. discussed with ANTHONY 44 female [facility] patient ESRD on HD MWF, T2dm with microvascular complications, history Cdiff colitis with recurrent infections and history of fecal transplantation months ago with subsequent cdiff colitis, who was referred to ED by EMS for complaints of headaches. noted hypertensive on admission. also had unspecified complaints of diarrhea. audible hyperactive bowel sounds at bedside and noted abdominal mild distention with nonspecific mild tenderness. Plan: admit as observation nephrology consult for routine HD place on empiric cdiff isolation, check stool cdiff cultures, and start empiric oral vancomycin monitor blood pressures
[2019-11-10] MEDS ORDERED: Vancomycin HCl 1.25 GM in Sodium Chloride 0.9% 250 ML 250 ML IVPB SCH (18:15)
--- NOTE | 2019-11-10 18:42 | RAD ---
PORTABLE CHEST: History: Baseline chest radiography. Elevated BNB. Comparison: 10-24-19 FINDINGS: No confluent infiltrate or vascular congestion. Interstitial prominence in the right lung again noted . IMPRESSION: No acute finding or significant interval change. POS: OFF
[2019-11-10] MEDS ORDERED: Famotidine 20 MG TAB PO SCH (21:00)
[2019-11-11 00:10] VITALS: BMI 14.6
[2019-11-11] MEDS ORDERED: Polyethylene Glycol 3350 17 GM Packet PO PRN (00:13)
[2019-11-11] MEDS ORDERED: hydrALAZINE 25 MG TAB PO SCH ×2 (00:15→09:00)
[2019-11-11] MEDS: Vancomycin HCl 25 MG/ML Oral PO SCH ×5 (00:15→17:06)
[2019-11-11] MEDS ORDERED: hydrOXYzine 25 MG TAB PO PRN (00:20)
[2019-11-11] MEDS: Fioricet 325/50/40 mg Tablet PO PRN ×2 (00:46→09:44)
[2019-11-11 04:57] LABS: #Eosinphils 0.7 thou/uL (0.0-0.7); #Lymphocytes 1.1 thou/uL (1.20-3.40); #Monocytes 0.2 thou/uL (0.11-0.59); #Neutrophils 3.4 thou/uL (1.40-6.50); %Basophils 0.8 % (0.0-1.0); %Eosinophils 12.9 % (0.0-10.0); %Lymphocytes 20.6 % (21.0-51.0); %Monocytes 4.5 % (0.0-10.0); %Neutrophils 61.3 % (42.0-75.0); Mean Corpuscular HGB CONC 33.3 g/dL (32.0-36.0); Mean Corpuscular Hemoglobin 29.2 pg (27.0-31.0); Mean Corpuscular Volume 87.6 fL (78.0-98.0); Mean Platelet Volume 10.2 fL (7.4-10.4); Platelet Count 95 thou/uL (130-400); RBC Distribution Width 16.1 % (11.5-14.5); Red Blood Cell (RBC) Count 3.75 mill/uL (4.20-5.40); White Blood Cell (WBC) Count 5.5 thou/uL (4.8-10.8)
[2019-11-11 05:19] LABS: Anion Gap 17 mmol/L (10-20); BUN (Urea Nitrogen) 13 mg/dL (7.0-18.7); Calc. Creatinine Clearance 15 mL/min (70-130); Calcium 8.9 mg/dL (7.8-10.44); Carbon Dioxide 27 mmol/L (22-29); Chloride 98 mmol/L (98-107); Estimated GFR-MDRD 18; Glucose 356 mg/dL (70-105); Sodium 138 mmol/L (136-145)
[2019-11-11] MEDS ORDERED: Acetaminophen 325 MG TAB PO PRN (08:02)
--- NOTE | 2019-11-11 08:53 | PRG ---
DATE OF SERVICE: SUBJECTIVE: Ms. Thao is a 44-year-old female, who was admitted for severe headache and labile hypertension. She missed her dialysis and for that reason, she also underwent emergent dialysis yesterday for fluid removal, to also help in the control blood pressure. This morning, she is feeling a little better. The headache is still there, but is decreased in intensity. She denies any associated chest pain or shortness of breath with this. OBJECTIVE: VITAL SIGNS: Blood pressure is 209/93, heart rate 65, respiratory rate 16, temperature 98.2, and pulse ox 95%. GENERAL: The patient is noted to be awake, alert, comfortable, not in distress. SKIN: Adequate turgor. HEENT: Pinkish conjunctivae. Anicteric sclerae. NECK: No neck mass. No carotid bruits. No JVD. CHEST: No deformities. LUNGS: Clear breath sounds. HEART: Normal sinus rhythm. No murmur. No gallops. No rubs. ABDOMEN: Globular, soft, nontender. No masses. EXTREMITIES: No edema. No deformities. MEDICATIONS: Medications of November 11, 2019, was reviewed. LABORATORY DATA: Laboratories of November 11, 2019; white count 5.5, hemoglobin 11. Sodium 138, potassium 4, chloride 98, carbon dioxide 27, BUN 13, creatinine 2.81, glucose 356, calcium 8.9, procalcitonin is 0.2. BNP is 1410. ASSESSMENT AND PLAN: 1. Labile hypertension, adjust BP medications. Consider increasing hydralazine from 25 to 50 mg tablet t.i.d. If needed, we can max it out to 100 mg p.o. t.i.d. 2. End-stage renal disease, stable. No indication for any dialytic intervention. Fluid removal was done due to the? Of congestive heart failure and elevated BNP. 3. Chronic anemia. There is no indication for any Epogen placement. 4. Headache, slowly improving. 5. Please note, chest x-ray done on November 10, 2019, showed increased lung markings. 6. Overall agree with current management. Job ID: [id number]
[2019-11-11] MEDS ORDERED: Vancomycin HCl 1 GM in Premix Bag 1 BAG IVPB SCH (09:00)
[2019-11-11] MEDS ORDERED: HOLD VANCOMYCIN FOR LEVEL >20 FS SCH (09:00)
[2019-11-11] MEDS ORDERED: PATIROMER CALCIUM SORBITEX 16.8 GM PO SCH (09:00)
[2019-11-11] MEDS ORDERED: Non-Formulary Item 1 EACH (Insulin Detemir [Levemir] 10 UNIT) SQ SCH (09:00)
[2019-11-11] MEDS ORDERED: Vancomycin HCl 750 MG in Sodium Chloride 0.9% 250 ML 250 ML IVPB SCH (09:00)
[2019-11-11] MEDS ORDERED: Vancomycin HCl 500 MG in Sodium Chloride 0.9% 100 ML IVPB SCH (09:00)
[2019-11-11] MEDS ORDERED: Vancomycin HCl 250 MG in Sodium Chloride 0.9% 100 ML IVPB SCH (09:00)
--- NOTE | 2019-11-11 09:24 | PRG ---
DATE OF SERVICE: 11/10/2019 SUBJECTIVE: Ms. Thao is a 44-year-old female, who was admitted for severe headache and we are consulted for her maintenance hemodialysis. The patient missed dialysis today and for that reason, we are consulting for her. I have scheduled her for regular hemodialysis of 3 hours today with fluid removal as tolerated. Blood pressure was significantly elevated earlier today at 195/94. The patient initially complained of severe headache, which we feel could be related from her high blood pressure. She is admitted overnight for better BP control as well as for fluid removal with dialysis. MEDICATIONS: Of November 10, 2019, were reviewed - these are her home medications, which include hydralazine 25 mg p.o. t.i.d., timolol eyedrop as directed, sevelamer 1.6 g p.o. t.i.d., sertraline 50 mg daily, MiraLAX 17 g daily, Protonix 40 mg tablet once a day, Zofran one tablet q.6 p.r.n., metoprolol succinate 50 mg daily, metoclopramide 5 mg q.8 p.r.n., melatonin 10 mg at bedtime, Levemir 5 units subcu at bedtime, NovoLog sliding scale, gabapentin one capsule p.o. b.i.d., dorzolamide one drop three times a day, dicyclomine 10 mg q.6 p.r.n., amlodipine 10 mg daily, Diamox 250 mg daily. PHYSICAL EXAMINATION: VITAL SIGNS: Blood pressure is 195/94, heart rate 66, and pulse ox 97% on room air. GENERAL: She is noted to be awake, alert, comfortable, not in distress. SKIN: Adequate turgor. HEENT: Pinkish conjunctivae. Anicteric sclerae. No neck mass. No carotid bruits. Right eye is blind. CHEST: No deformities. LUNGS: Clear breath sounds. No wheezing. No crackles. HEART: Normal sinus rhythm. No murmur. No gallops. No rubs. ABDOMEN: Globular, soft, nontender. No masses. EXTREMITIES: No edema. No deformities. LABORATORY DATA: Laboratories of November 10, 2019, were reviewed. ASSESSMENT AND PLAN: 1. End-stage renal disease. Continue Sunday, Sunday, and Sunday hemodialysis. We will schedule her for 3-hour hemodialysis treatment, fluid removal as tolerated by the patient. 2. Headache, p.r.n. pain medications. 3. Hypertension. Resume current BP medications. The patient does have a history of noncompliance. Overall, agree with current management. ADDENDUM: The patient's hemoglobin was noted at 11.5 and her potassium was noted at 5.4 - minimally elevated. Job ID: [id number]
[2019-11-11] MEDS: Insulin Glargine 10 UNITS in Pre-Filled Syringe 1 EACH SC SCH ×2 (09:43→21:45)
[2019-11-11] MEDS: Brimonidine Tartrate 0.2% Ophth Soln 5 ml Bottle L EYE SCH ×3 (09:44→21:46)
[2019-11-11] MEDS: Dorzolamide HCl 2% Ophth Soln 10 ml Bottle L EYE SCH ×3 (09:44→21:46)
[2019-11-11] MEDS: Timolol 0.5% Ophth Soln 5 ml Bottle L EYE SCH ×3 (09:45→21:47)
[2019-11-11] MEDS: prednisoLONE 1% Ophth Susp 5 ml Bottle L EYE SCH ×3 (09:45→21:48)
[2019-11-11] MEDS: Sevelamer Carbonate 800 MG TAB PO SCH ×3 (09:46→17:06)
[2019-11-11] MEDS: levETIRAcetam 500 MG TAB PO SCH ×2 (09:46→21:43)
[2019-11-11] MEDS: Amlodipine 10 MG TAB PO SCH (09:47)
[2019-11-11] MEDS: hydrALAZINE 25 MG TAB PO SCH ×3 (09:47→21:45)
[2019-11-11] MEDS: AcetaZOLAMIDE 250 MG TAB PO SCH (09:48)
[2019-11-11] MEDS: Gabapentin 300 MG CAP PO SCH ×2 (09:48→21:41)
[2019-11-11] MEDS: Saccharomyces boulardii 250 MG CAP PO SCH ×2 (09:48→21:44)
[2019-11-11] MEDS: Famotidine 20 MG TAB PO SCH (09:48)
[2019-11-11] MEDS: Atropine Sulfate 1% Ophth Soln 5 ml Bottle L EYE SCH ×2 (10:14→23:56)
--- NOTE | 2019-11-11 13:57 | PDOC.HOSPP ---
- Subjective Subjective: Pt reports that her headache has improved. She is still experiencing some diarrhea. She reports that the diarrhea has come and gone for a long time. She is extremely weak and reports that she is in a nursing facility for this reason and to help manage her medications. - Objective Vital Signs & Weight: Vital Signs (12 hours) Temp Pulse Resp BP BP Pulse Ox 11/11/19 12:00 98.5 F 62 16 159/77 H 96 11/11/19 09:47 68 204/96 H 11/11/19 09:45 68 204/96 H 11/11/19 08:00 98.5 F 68 18 204/96 H 97 11/11/19 06:07 65 209/93 H 11/11/19 04:55 98.2 F 65 16 198/93 H 95 11/11/19 04:25 198/93 H 11/11/19 02:11 67 176/84 H Weight Admit Weight 79 lb 11.2 oz Weight 79 lb 11.2 oz I&O: 11/10/19 11/11/19 11/12/19 06:59 06:59 06:59 Intake Total 120 Balance 120 Result Diagrams: 11/11/19 04:33 11/11/19 04:33 Additional Labs: Accuchecks 11/11/19 11/11/19 12:00 00:33 POC Glucose 86 122 H Hospitalist ROS - Medication Medications: Active Medications Generic Name Dose Route Start Last Admin Trade Name Freq PRN Reason Stop Dose Admin Acetaminophen 650 mg 11/10/19 17:23 11/10/19 21:15 Tylenol PO 650 mg Q4H PRN Administration Headache/Fever/Mild Pain (1-3) Acetaminophen/Butalbital/Caffeine 1 tab 11/11/19 00:13 11/11/19 09:44 Fioricet PO 11/16/19 00:14 1 tab Q4H PRN Administration Headache Acetazolamide 250 mg 11/11/19 09:00 11/11/19 09:48 Diamox PO 250 mg DAILY MEGAN Administration Amlodipine Besylate 10 mg 11/11/19 09:00 11/11/19 09:47 Norvasc PO 10 mg DAILY MEGAN Administration Atropine Sulfate 1 drop 11/11/19 09:00 11/11/19 10:14 Atropine 1% Ophth Soln L EYE Not Given BID MEGAN Brimonidine Tartrate 1 drop 11/11/19 09:00 11/11/19 09:44 Alphagan 0.2% Ophth Soln L EYE 1 drop TID MEGAN Administration Dorzolamide HCl 1 drop 11/11/19 09:00 11/11/19 09:44 Trusopt 2% Ophth Soln L EYE 1 drop TID MEGAN Administration Famotidine 20 mg 11/11/19 09:00 11/11/19 09:48 Pepcid PO 20 mg QAM MEGAN Administration Gabapentin 300 mg 11/11/19 09:00 11/11/19 09:48 Neurontin PO 300 mg BID MEGAN Administration Hydralazine HCl 50 mg 11/11/19 09:00 11/11/19 09:47 Apresoline PO 50 mg TID MEGAN Administration Insulin Glargine 10 units/ 0.1 mls @ 0 mls/hr 11/11/19 09:00 11/11/19 09:43 Miscellaneous Medication SC 0.1 mls BID MEGAN Administration Insulin Human Lispro 0 units 11/10/19 17:26 11/11/19 06:06 Humalog SC 6 unit .MILD SLIDING SCALE PRN Administration Mild Correctional Scale Levetiracetam 500 mg 11/11/19 09:00 11/11/19 09:46 Keppra PO 500 mg BID MEGAN Administration Metoprolol Succinate 50 mg 11/11/19 09:00 11/11/19 09:47 Toprol Xl PO 50 mg DAILY MEGAN Administration Pantoprazole Sodium 40 mg 11/11/19 09:00 11/11/19 09:47 Protonix PO 40 mg DAILY MEGAN Administration Prednisolone Acetate 1 drop 11/11/19 09:00 11/11/19 09:45 Econopred Plus 1% Opth Susp L EYE 1 drop TID MEGAN Administration Saccharomyces Boulardii 250 mg 11/11/19 09:00 11/11/19 09:48 Florastor PO 250 mg BID MEGAN Administration Sertraline HCl 50 mg 11/11/19 09:00 11/11/19 09:47 Zoloft PO 50 mg DAILY MEGAN Administration Sevelamer Carbonate 2,400 mg 11/11/19 08:00 11/11/19 12:47 Renvela PO 2,400 mg TID-WM MEGAN Administration Timolol Maleate 1 drop 11/11/19 09:00 11/11/19 09:45 Timoptic 0.5% Ophth Soln L EYE 1 drop TID MEGAN Administration Vancomycin HCl 125 mg 11/10/19 18:00 11/11/19 09:43 First Vancomycin PO 125 mg Q6HR MEGAN Administration - Exam Eye - other findings: Right enucleation, left iris opacity. Heart: RRR, no murmur, no gallops, no rubs, normal peripheral pulses Respiratory: CTAB, no wheezes, no rales, no ronchi, normal chest expansion, no tachypnea, normal percussion Gastrointestinal: soft, non-tender, non-distended, normal bowel sounds, no palpable masses, no hepatomegaly, no splenomegaly, no bruit Skin: normal turgor Musculoskeletal: diffuse muscle atrophy (mild) Psychiatric: normal affect, normal behavior, A&O x 3 Hosp A/P (1) Headache Code(s): R51 - HEADACHE Status: Acute (2) C. difficile colitis Status: Acute (3) Hypertensive emergency Code(s): I16.1 - HYPERTENSIVE EMERGENCY Status: Acute (4) Diabetes mellitus with diabetic polyneuropathy Code(s): E11.42 - TYPE 2 DIABETES MELLITUS WITH DIABETIC POLYNEUROPATHY Status : Chronic (5) Diabetic gastroparesis Code(s): E11.43 - TYPE 2 DIABETES W DIABETIC AUTONOMIC (POLY)NEUROPATHY; K31.84 - GASTROPARESIS Status: Chronic (6) Dyslipidemia Code(s): E78.5 - HYPERLIPIDEMIA, UNSPECIFIED Status: Chronic (7) ESRD (end stage renal disease) on dialysis Code(s): N18.6 - END STAGE RENAL DISEASE; Z99.2 - DEPENDENCE ON RENAL DIALYSIS Status: Chronic (8) Noncompliance with diet and medication regimen Code(s): Z91.11 - PATIENT'S NONCOMPLIANCE WITH DIETARY REGIMEN; Z91.14 - PATIENT 'S OTHER NONCOMPLIANCE WITH MEDICATION REGIMEN Status: Chronic (9) Protein-calorie malnutrition, severe Code(s): E43 - UNSPECIFIED SEVERE PROTEIN-CALORIE MALNUTRITION Status: Chronic (10) Secondary hyperparathyroidism of renal origin Code(s): N25.81 - SECONDARY HYPERPARATHYROIDISM OF RENAL ORIGIN Status: Chronic - Plan Complicated course of recurrent C diff after fecal transplant. GI consult for additional treatment options. GA improved. BP much improved.
[2019-11-11] MEDS ORDERED: Melatonin 3 MG TAB PO SCH (21:00)
[2019-11-11] MEDS: Fidaxomicin 200 MG TAB PO SCH (21:41)
--- NOTE | 2019-11-12 01:30 | CON ---
DATE OF CONSULTATION: 11/11/2019 CHIEF COMPLAINT: Diarrhea. HISTORY OF PRESENT ILLNESS: Ms. Thao is a 44-year-old woman with end-stage renal disease, who is blind and group home bound and who has been immobile. She has had recurrent C difficile and ultimately underwent fecal transplantation by Dr. Bravo back in March 2019. She did well for a few months, but then came back in with recurrence of diarrhea and C diff in August 2019. She was treated with vancomycin and reports that she still has chronic diarrhea with several liquid stools per day. She came to the emergency room yesterday afternoon due to a headache. Apparently while in the emergency room, she had further workup of the diarrhea performed and was found to be positive for C diff toxin. She has had blood pressures as high as 220/110 associated with headache. PAST MEDICAL HISTORY: Coronary artery disease, hypertension, end-stage renal disease, on hemodialysis, diabetes mellitus type 1, gastroparesis, anemia of chronic disease, recurrent C difficile colitis, bilateral blindness, glaucoma, GERD. PAST SURGICAL HISTORY: Tubal ligation, colonoscopy with fecal transplant, chest tube. FAMILY HISTORY: Not known. SOCIAL HISTORY: No alcohol, tobacco, or drugs. She is a resident at a group home and has been bed-bound. ALLERGIES: NO KNOWN DRUG ALLERGIES. MEDICATIONS: 1. Multiple eyedrops. 2. Florastor. 3. Acetazolamide. 4. Norvasc. 5. Metoprolol. 6. Hydralazine. 7. Protonix. 8. Melatonin. 9. Gabapentin. 10. Levemir. 11. Reglan as needed. 12. Sertraline. REVIEW OF SYSTEMS: Negative x10 systems reviewed, except as stated in the history of present illness. All other questions, the patient just responds. "I don't know too." LABORATORY DATA: White blood cell count 5.5, hemoglobin 11.0, platelets 95, creatinine 2.81, potassium 4.0, glucose 356. IMPRESSION: Recurrent Clostridium difficile colitis. She has diarrhea with incontinence. She has stools positive for Clostridium difficile toxin. She has had multiple recurrences of Clostridium difficile and ultimately underwent fecal transplant back in March. She had a recurrence of Clostridium difficile in August of this year and was treated with vancomycin. RECOMMENDATIONS: 1. We will give a course of Dificid. 2. Ultimately, if she has recurrence after that, then repeat fecal transplant should be considered. 3. Dr. Bravo will follow up tomorrow if she is still here. Job ID: [id number]
[2019-11-12 06:23] LABS: #Eosinphils 0.8 thou/uL (0.0-0.7); #Lymphocytes 1.7 thou/uL (1.20-3.40); #Monocytes 0.4 thou/uL (0.11-0.59); #Neutrophils 2.9 thou/uL (1.40-6.50); %Basophils 0.8 % (0.0-1.0); %Eosinophils 14.4 % (0.0-10.0); %Lymphocytes 29.4 % (21.0-51.0); %Monocytes 6.2 % (0.0-10.0); %Neutrophils 49.2 % (42.0-75.0); Mean Corpuscular HGB CONC 32.7 g/dL (32.0-36.0); Mean Corpuscular Volume 88.5 fL (78.0-98.0); Mean Platelet Volume 9.8 fL (7.4-10.4); Platelet Count 96 thou/uL (130-400); Red Blood Cell (RBC) Count 3.79 mill/uL (4.20-5.40); White Blood Cell (WBC) Count 5.8 thou/uL (4.8-10.8)
[2019-11-12] MEDS: Amlodipine 10 MG TAB PO SCH (07:53)
[2019-11-12] MEDS: hydrALAZINE 25 MG TAB PO SCH ×2 (07:53→14:22)
[2019-11-12] MEDS: Fioricet 325/50/40 mg Tablet PO PRN (07:54)
[2019-11-12 08:49] VITALS: TEMP 97.5
[2019-11-12] MEDS: Brimonidine Tartrate 0.2% Ophth Soln 5 ml Bottle L EYE SCH ×2 (08:59→14:24)
[2019-11-12] MEDS: Sevelamer Carbonate 800 MG TAB PO SCH ×2 (08:59→14:29)
[2019-11-12] MEDS: Gabapentin 300 MG CAP PO SCH (08:59)
[2019-11-12] MEDS: Dorzolamide HCl 2% Ophth Soln 10 ml Bottle L EYE SCH ×2 (08:59→14:23)
[2019-11-12] MEDS: Insulin Glargine 10 UNITS in Pre-Filled Syringe 1 EACH SC SCH (09:00)
[2019-11-12] MEDS: prednisoLONE 1% Ophth Susp 5 ml Bottle L EYE SCH ×2 (09:00→14:24)
[2019-11-12] MEDS: Timolol 0.5% Ophth Soln 5 ml Bottle L EYE SCH ×2 (09:00→14:24)
[2019-11-12] MEDS: Atropine Sulfate 1% Ophth Soln 5 ml Bottle L EYE SCH (09:01)
[2019-11-12] MEDS: Saccharomyces boulardii 250 MG CAP PO SCH (09:01)
--- NOTE | 2019-11-12 09:13 | PRG ---
DATE OF SERVICE: 11/12/2019 SUBJECTIVE: Ms. Thao is a 44-year-old female with ESRD. She was admitted due to mild shortness of breath and labile hypertension. She has CHF and underwent hemodialysis and fluid removal was done with improvement. She was also found to have Clostridium difficile colitis. She is undergoing hemodialysis at the present time. We will max out fluid removal as tolerated by this patient. OBJECTIVE: VITAL SIGNS: Blood pressure 181/83-before BP medications, heart rate 67, respiratory rate 16, temperature 98.4, and pulse ox 97%. GENERAL: Awake, alert, comfortable, not in distress. SKIN: Adequate turgor. HEENT: She has a pinkish conjunctivae. Anicteric sclerae. NECK: No neck mass. No carotid bruits. No JVD. CHEST: No deformities. LUNGS: Clear breath sounds. No wheezing. No crackles. HEART: Normal sinus rhythm. No murmur. No gallops. No rubs. ABDOMEN: Globular, soft, nontender. No masses. EXTREMITIES: No edema. No deformities. NEUROLOGIC: Moving all extremities. No tremors. No asterixis. No ataxia. MEDICATIONS: Medications of November 12, 2019, was reviewed. LABORATORY DATA: Laboratories of November 12, 2019; white count 5.8, hemoglobin 11. On November 11, 2019, BUN 13, creatinine 2.81. On November 12, 2019, glucose 170. ASSESSMENT AND PLAN: 1. Clostridium difficile colitis-GI following. Continue supportive care. 2. End-stage renal disease, stable, tolerating current hemodialysis regimen. Maxing out fluid removal. Due to the elevated BNP and? Of congestive heart failure, we are trying to optimize the patient's cardiac hemodynamics status. Max out fluid removal as planned. 3. Continue current regular hemodialysis Sunday, Sunday, and Sunday. Job ID: [id number]
[2019-11-12] MEDS: Fidaxomicin 200 MG TAB PO SCH (14:21)
[2019-11-12] MEDS: Famotidine 20 MG TAB PO SCH (14:22)
[2019-11-12] MEDS: AcetaZOLAMIDE 250 MG TAB PO SCH (14:22)
[2019-11-12] MEDS: levETIRAcetam 500 MG TAB PO SCH (14:23)
[2019-11-12 14:42] VITALS: BP 144/67
[2019-11-12] MEDS ORDERED: traMADol HCl 50 MG TAB PO SCH (15:15)
--- NOTE | 2019-11-12 17:39 | PRG ---
DATE OF SERVICE: 11/12/2019 SUBJECTIVE: Ms. Thao says her diarrhea has slowed down a bit today. There is no abdominal pain. She was nauseated earlier but not anymore. She is tolerating her diet. OBJECTIVE: VITAL SIGNS: Pulse 78, blood pressure 144/67, oxygen saturation 98% on room air, and temperature is 97.5. GENERAL: In no acute distress. HEART: Regular rate and rhythm. LUNGS: Clear to auscultation bilaterally. ABDOMEN: Nondistended. Bowel sounds present. Soft, nontender to palpation. EXTREMITIES: No peripheral edema. LABORATORY STUDIES: WBC 5.8, hemoglobin 11.0, and platelets 96. Sodium 138, potassium 4.0, BUN 13, creatinine 2.81, and glucose 109. C difficile antigen and toxin are both positive. ASSESSMENT AND PLAN: Recurrent Clostridium difficile colitis. The patient has had multiple episodes of Clostridium difficile over the past year including fecal transplantation in March as well as another round of vancomycin in the fall. I agree with Dr. Manzano's recommendations to give Dificid 200 mg twice daily x10 days. Today is day #2 of therapy. Please ensure that she is able to get this medication following discharge to her nursing facility and complete the treatment course as outlined. We will plan to see her back in the GI Clinic in 3 to 4 weeks, to assess for resolution of the diarrhea. GI will sign off, please call back anytime with questions or concerns. Job ID: [id number]
== END 2019-11-12 18:41 ==
LOC: ERS 11:55 → ERHOLD 16:16 → 2SW 21:11
PROVIDERS: ADMIT Hospitalist; ATTEND Hospitalist
DX: A04.71 Enterocolitis due to Clostridium difficile, recurrent (principal); R51 Headache; E11.42 Type 2 diabetes mellitus with diabetic polyneuropathy; K21.9 Gastro-esophageal reflux disease without esophagitis; G47.00 Insomnia, unspecified; I16.1 Hypertensive emergency; I13.2 Hypertensive heart and chronic kidney disease with heart failure and with stage 5 chronic kidney disease, or end stage renal disease; E11.22 Type 2 diabetes mellitus with diabetic chronic kidney disease; N18.6 End stage renal disease; I50.9 Heart failure, unspecified; D63.1 Anemia in chronic kidney disease; E87.5 Hyperkalemia; E11.43 Type 2 diabetes mellitus with diabetic autonomic (poly)neuropathy; K31.84 Gastroparesis; N25.81 Secondary hyperparathyroidism of renal origin; H54.3 Unqualified visual loss, both eyes; Z79.4 Long term (current) use of insulin; Z79.899 Other long term (current) drug therapy; Z91.11 Patient's noncompliance with dietary regimen; Z91.14 Patient's other noncompliance with medication regimen; Z99.2 Dependence on renal dialysis
CPT/HCPCS: 36415; 36416; 70450; 71045; 80048; 80053; 82550; 83605; 83630; 83735; 83880; 84145; 85025; 87324; 87328; 87329; 87340; 87427; 87449; 87493; 87633; 93306; G0378; J1815; Q0162

== ENCOUNTER 2019-11-24 03:57 | Emergency (ER) | payer OTHER ==
[2019-11-24] MEDS ORDERED: Acetaminophen 500 MG TAB ONE (04:08)
[2019-11-24] MEDS ORDERED: cloNIDine 0.1 MG TAB ONE (04:08)
[2019-11-24] MEDS ORDERED: Morphine 10 MG/ML VIAL ONE (05:32)
[2019-11-24] MEDS ORDERED: hydrALAZINE 25 MG TAB ONE (06:02)
[2019-11-24] MEDS ORDERED: Metoprolol Tartrate 50 MG TAB ONE (06:02)
== END 2019-11-24 07:50 ==
LOC: ERS 03:57
DX: I12.0 Hypertensive chronic kidney disease with stage 5 chronic kidney disease or end stage renal disease (principal); I25.10 Atherosclerotic heart disease of native coronary artery without angina pectoris; E10.40 Type 1 diabetes mellitus with diabetic neuropathy, unspecified; E10.43 Type 1 diabetes mellitus with diabetic autonomic (poly)neuropathy; K31.84 Gastroparesis; D64.9 Anemia, unspecified; N18.6 End stage renal disease; G47.00 Insomnia, unspecified; K21.9 Gastro-esophageal reflux disease without esophagitis; E21.3 Hyperparathyroidism, unspecified; F41.9 Anxiety disorder, unspecified; F32.9 Major depressive disorder, single episode, unspecified; Z79.899 Other long term (current) drug therapy; Z99.2 Dependence on renal dialysis
CPT/HCPCS: J2270

== ENCOUNTER 2019-11-26 07:53 | Inpatient (IN) | payer OTHER ==
--- NOTE | 2019-11-26 08:52 | CT ---
EXAM: CT brain without contrast HISTORY: Altered mental status COMPARISON: 11/10/2019 TECHNIQUE: Multiple contiguous axial images were obtained and a CT of the brain without contrast. FINDINGS: The brain is normal in morphology and attenuation without focal lesions or confluent areas of infarction. Intracranial vascular calcifications are seen. There is no evidence of hydrocephalus, intracranial hemorrhage, or extra-axial fluid collection. The calvarium and overlying soft tissues are unremarkable. The visualized paranasal sinuses and masto id air cells are well aerated. IMPRESSION: No evidence of acute intracranial abnormality
[2019-11-26 09:03] LABS: #Basophils 0.1 thou/uL (0.0-0.2); #Eosinphils 0.1 thou/uL (0.0-0.7); #Lymphocytes 1.1 thou/uL (1.20-3.40); #Monocytes 0.3 thou/uL (0.11-0.59); #Neutrophils 4.5 thou/uL (1.40-6.50); %Basophils 0.8 % (0.0-1.0); %Eosinophils 2.3 % (0.0-10.0); %Monocytes 5.2 % (0.0-10.0); %Neutrophils 73.7 % (42.0-75.0); Hemoglobin 10.6 g/dL (12.0-16.0); Mean Corpuscular HGB CONC 33.3 g/dL (32.0-36.0); Mean Corpuscular Hemoglobin 29.6 pg (27.0-31.0); Mean Corpuscular Volume 88.8 fL (78.0-98.0); Mean Platelet Volume 9.6 fL (7.4-10.4); Platelet Count 109 thou/uL (130-400); RBC Distribution Width 16.6 % (11.5-14.5); White Blood Cell (WBC) Count 6.1 thou/uL (4.8-10.8)
[2019-11-26 09:10] LABS: Acetaminophen Less than 6.0 mcg/mL (10.0-30.0); Alcohol Less than 10 mg/dL (Less than 10); Salicylate Less than 8.0 mg/dL (15.0-30.0)
[2019-11-26 09:14] LABS: ALT (SGPT) 7 U/L (8-55); AST (SGOT) 20 U/L (5-34); Albumin 3.9 g/dL (3.5-5.0); Alkaline Phosphatase 185 U/L (40-110); Anion Gap 26 mmol/L (10-20); BUN (Urea Nitrogen) 95 mg/dL (7.0-18.7); Bilirubin, Total 0.5 mg/dL (0.2-1.2); Calc. Creatinine Clearance 0 mL/min (70-130); Calcium 9.4 mg/dL (7.8-10.44); Carbon Dioxide 24 mmol/L (22-29); Chloride 92 mmol/L (98-107); Estimated GFR-MDRD 4; Globulin 2.6 g/dL (2.4-3.5); Glucose 129 mg/dL (70-105); Lipase Less than 4 U/L (8-78); Potassium 6.2 mmol/L (3.5-5.1); Protein, Total 6.5 g/dL (6.0-8.3); Sodium 136 mmol/L (136-145)
--- NOTE | 2019-11-26 09:27 | RAD ---
EXAM: Single view of the chest HISTORY: Dyspnea COMPARISON: 11/10/2019 FINDINGS: Single view of the chest shows an enlarged but stable cardiomediastinal silhouette. There i s no evidence of consolidation, mass, or pleural effusion. The bones are unremarkable. IMPRESSION: Cardiomegaly without evidence of acute cardiopulmonary disease
[2019-11-26] MEDS ORDERED: Calcium Gluc 4.6 MEQ/10 ML (100 MG/ML) ONE (09:33)
[2019-11-26] MEDS ORDERED: Sodium Bicarb 50 MEQ/50 ML VIAL ONE ×2 (09:34→09:35)
[2019-11-26] MEDS ORDERED: Polyethylene Glycol 3350 17 GM Packet PO PRN (10:12)
[2019-11-26] MEDS ORDERED: Bisacodyl 5 MG TAB PO PRN (10:16)
[2019-11-26] MEDS ORDERED: Loperamide HCl 2 MG CAP PO PRN (10:16)
[2019-11-26] MEDS ORDERED: HYDROcodone/Acetaminophen 5/325 mg Tablet PO PRN (10:16)
[2019-11-26] MEDS ORDERED: Ondansetron PF 4 MG/2 ML Vial IVP PRN (10:16)
[2019-11-26] MEDS ORDERED: HYDROcodone/Acetaminophen 7.5/325 mg Tablet PO PRN (10:16)
[2019-11-26] MEDS ORDERED: Ondansetron ODT 4 MG TAB PO PRN ×2 (10:16→10:58)
[2019-11-26] MEDS ORDERED: Dextrose 5% in Water 1,000 ML IV PRN (10:19)
[2019-11-26] MEDS ORDERED: HumaLOG 300 UNITS/3 ML VIAL SC PRN (10:19)
[2019-11-26] MEDS ORDERED: Dextrose 50% Abboject 50 ML SYRINGE SLOW IVP PRN (10:19)
[2019-11-26] MEDS ORDERED: Labetalol HCl 100 MG/20 ML VIAL SLOW IVP PRN (10:20)
[2019-11-26] MEDS ORDERED: hydrALAZINE 20 MG/ML VIAL SLOW IVP PRN (10:20)
[2019-11-26] MEDS ORDERED: Benzonatate 100 MG CAP PO PRN (10:20)
[2019-11-26] MEDS ORDERED: Docusate 100 MG CAP PO PRN (10:20)
[2019-11-26] MEDS ORDERED: hydrOXYzine 25 MG TAB PO PRN (10:56)
[2019-11-26] MEDS ORDERED: Metoclopramide HCl 10 MG TAB PO PRN (11:30)
--- NOTE | 2019-11-26 12:07 | CON ---
DATE OF CONSULTATION: HISTORY OF PRESENT ILLNESS: Ms. Thao is a 44-year-old female with known history of ESRD-on maintenance hemodialysis and was admitted for mental status change secondary to hypoglycemia. Blood sugar was initially noted at 44. After D50, her mentation started improving. However, she was noted to be mildly hyperkalemic with a potassium of 6.2. We are now being consulted for her maintenance hemodialysis. I have discussed the case with the ER physician and we have scheduled her for an emergent hemodialysis today. REVIEW OF SYSTEMS: Positive for decreased mentation. No chest pain or shortness of breath. Decreased appetite. Decreased energy level. No nausea. No vomiting. Occasional diarrhea. No abdominal pain. No fever or chills. No hematochezia. No melena. No headache. PAST MEDICAL HISTORY: Includes the following; 1. ESRD from a presumed diabetic nephropathy. 2. Type 2 diabetes mellitus. 3. Diabetic retinopathy, history of noncompliance, diabetic gastroparesis, hypertension, history of glaucoma. PAST SURGICAL HISTORY: Status post right eye enucleation, status post AV fistula placement, status post cuffed dialysis catheter placement, status post bilateral tubal ligation. SOCIAL HISTORY: The patient is at a [facility]. She has 2 children. No alcohol. No IV drug abuse. Status post multiple blood transfusion. 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 Medically disabled. Education, 9th grade. Please note, the patient is blind. ALLERGIES: NONE. TRAUMA: None. IMMUNIZATIONS: Up to date. HOSPITALIZATIONS: Please see past medical history. FAMILY HISTORY: No family history of ESRD. HOME MEDICATIONS: Include; 1. Prednisolone eye drop as directed. 2. Levetiracetam 500 mg p.o. b.i.d. 3. Hydralazine 25 mg tablet t.i.d. 4. Renvela 2.4 g t.i.d. with meals. 5. Sertraline 50 mg daily. 6. MiraLAX 17 g daily. 7. Veltassa 16.8 g p.o. daily. 8. Protonix 40 mg tab daily. 9. Zofran one tablet t.i.d. p.r.n. 10. Metoprolol succinate 50 mg once a day. 11. Insulin Levemir 10 units subcu b.i.d. 12. Humalog sliding scale. 13. Neurontin 100 mg tablet, one capsule b.i.d. 14. Dificid 200 mg p.o. b.i.d. 15. Dorzolamide one drop to the affected eye three times a day. 16. Amlodipine 10 mg daily. PHYSICAL EXAMINATION: VITAL SIGNS: Blood pressure 117/70, heart rate 70. GENERAL: The patient is sleepy, but arousable, comfortable, not in overt distress. SKIN: Adequate turgor. HEENT: She has pinkish conjunctivae. Anicteric sclerae. NECK: No neck mass. No carotid bruits. No JVD. Positive for right eye enucleation. LUNGS: Clear breath sounds. No wheezing. No crackles. HEART: Normal sinus rhythm. No murmur. No gallops. No rubs. ABDOMEN: Globular soft, nontender. No masses. EXTREMITIES: No edema. No deformities. IMAGING STUDIES: Chest x-ray, no overt CHF. CT scan of the brain, no acute intracranial abnormality. LABORATORY DATA: Laboratories of November 26, 2019; white count 6.1, hemoglobin 10. Sodium 136, potassium 6.2, chloride 92, carbon dioxide 24, BUN 95, creatinine 10.12, glucose 129, lactic acid 0.7. ASSESSMENT AND PLAN: 1. Hypoglycemia, much improved with D50. Adjust insulin regimen. 2. Decreased mentation secondary to hypoglycemia-much improved. a. CT scan of the brain on November 26, 2019 showed no acute intracranial abnormality. 3. Mild hyperkalemia. We will schedule for dialysis today. 4. End-stage renal disease. Continuing Sunday, Sunday, Sunday hemodialysis regimen. Fluid removal only as tolerated. 5. Agree with current management. Job ID: [id number]
[2019-11-26 14:05] LABS: CKMB 5.5 ng/mL (0-6.6)
--- NOTE | 2019-11-26 14:11 | PDOC.HHP ---
Hospitalist HPI - History of Present Illness Altered mental status History of Present Illness: 44-year-old female with past medical history of end-stage renal disease on hemodialysis, insulin-dependent diabetes mellitus, hypertension, hyperlipidemia , debility resulting in inability to walk, severe protein calorie malnutrition, legally blind who was recently discharged from [facility] diagnosed with Clostridium difficile infection presents with altered mental status. Patient has been residing in a nursing facility for several years and is profoundly debilitated. Patient does not ambulated baseline in his wheelchair and bedbound. Normally baseline patient is able to talk and answer questions appropriately. Patient was transferred for altered mental status as she had a blood sugar of 44 and nursing facility, patient was given D50 and transferred to a higher level of care. Patient presents to [facility] on 11/26. By the time she arrived to [facility] blood sugars were found to be 230. Patient's metabolic panel shows profound hyperkalemia with potassium of 6.2 and elevated liver function tests, nephrology called for further recommendations and the patient will require [facility]. I find the patient in the emergency department she is resting in bed comfortably in no distress. Patient slowed answer questions and more confused than her baseline after I discussed the case with physician who took care of her last time. Patient with toxic metabolic encephalopathy diagnosed on admission. We will continue oral deficit for Clostridium difficile infection. Long-term prognosis is guarded. Hospitalist ROS - Review of Systems All other systems reviewed; all pertinent +/- noted in HPI/Subj Hospitalist History - Past Medical History Source: patient, old records, other (Physician who cared for patient recently) Cardiac: reports: HTN Pulmonary: reports: high cholesterol Gastrointestinal: reports: Other (gastroparesis - DM induced) Heme/Onc: reports: Anemia NOS Psych: reports: Other (Insomnia) Renal/: reports: Other (ESRD/HD) Endocrine: reports: Diabetes (Type 2), Hyperparathyroidism Other Medical History: DM retinopathy, legally blind, Debility, protein callorie malnutrition - Past Surgical History Past Surgical History: reports: Tubal Ligation, Other (Dialysis shunt to LUE Surgery for pneumothorax(traumatic) I&D of abscess) - Family History Family History: reports: diabetes mellitus, hypertension - Social History Smoking Status: Unknown if ever smoked Alcohol: reports: None Drugs: reports: none Living Situation: [facility] Domestic Violence: Negative Activity level: bed bound - Exam General Appearance: NAD Eye: PERRL, anicteric sclera Eye - other findings: Left eye open cloudy iris. Legally blind. Right eye enucleation. ENT: normocephalic atraumatic, moist mucosa Neck: supple, symmetric, no lymphadenopathy Heart: RRR, no murmur, no gallops, no rubs, normal peripheral pulses Respiratory: CTAB, no wheezes, no rales, no ronchi, no tachypnea Gastrointestinal: soft, non-tender, no guarding, no rigidity Extremities: no clubbing, 1+ LE edema Skin: no lesions, no rashes Neurological: cranial nerve grossly intact, no focal deficits Musculoskeletal: generalized weakness Psychiatric: oriented to person, flat affect Hospitalist Results - Labs Result Diagrams: 11/26/19 08:33 11/26/19 08:33 Lab results: WBC 6.1 thou/uL (4.8-10.8) 11/26/19 08:33 Hgb 10.6 g/dL (12.0-16.0) L 11/26/19 08:33 Hct 32.0 % (36.0-47.0) L 11/26/19 08:33 MCV 88.8 fL (78.0-98.0) 11/26/19 08:33 Plt Count 109 thou/uL (130-400) L 11/26/19 08:33 Neutrophils % 73.7 % (42.0-75.0) 11/26/19 08:33 Sodium 136 mmol/L (136-145) 11/26/19 08:33 Potassium 6.2 mmol/L (3.5-5.1) H 11/26/19 08:33 Chloride 92 mmol/L (98-107) L 11/26/19 08:33 Carbon Dioxide 24 mmol/L (22-29) 11/26/19 08:33 BUN 95 mg/dL (7.0-18.7) H 11/26/19 08:33 Creatinine 10.12 mg/dL (0.6-1.1) H 11/26/19 08:33 Glucose 129 mg/dL (70-105) H 11/26/19 08:33 Lactic Acid 0.7 mmol/L (0.5-2.2) 11/26/19 08:33 Calcium 9.4 mg/dL (7.8-10.44) 11/26/19 08:33 Total Bilirubin 0.5 mg/dL (0.2-1.2) 11/26/19 08:33 AST 20 U/L (5-34) 11/26/19 08:33 ALT 7 U/L (8-55) L 11/26/19 08:33 Alkaline Phosphatase 185 U/L (40-110) H 11/26/19 08:33 CK-MB (CK-2) 5.5 ng/mL (0-6.6) 11/26/19 13:05 Troponin I 0.052 ng/mL (< 0.028) H 11/26/19 13:05 Serum Total Protein 6.5 g/dL (6.0-8.3) 11/26/19 08:33 Albumin 3.9 g/dL (3.5-5.0) 11/26/19 08:33 Lipase Less than 4 U/L (8-78) L 11/26/19 08:33 - Radiology Interpretation CT scan - head Status: image reviewed by me Chest x-ray Status: image reviewed by wi Hospitalist H&P A/P - Problem (1) C. difficile colitis Status: Acute (2) Glaucoma Code(s): H40.9 - UNSPECIFIED GLAUCOMA Status: Acute (3) Headache Code(s): R51 - HEADACHE Status: Acute (4) Hyperkalemia Code(s): E87.5 - HYPERKALEMIA Status: Acute (5) Metabolic acidosis Code(s): E87.2 - ACIDOSIS Status: Acute (6) Depression Code(s): F32.9 - MAJOR DEPRESSIVE DISORDER, SINGLE EPISODE, UNSPECIFIED Status : Chronic (7) Diabetes mellitus with diabetic polyneuropathy Code(s): E11.42 - TYPE 2 DIABETES MELLITUS WITH DIABETIC POLYNEUROPATHY Status : Chronic (8) Diabetes type 1, uncontrolled Code(s): E10.65 - TYPE 1 DIABETES MELLITUS WITH HYPERGLYCEMIA Status: Chronic (9) Diabetic gastroparesis Code(s): E11.43 - TYPE 2 DIABETES W DIABETIC AUTONOMIC (POLY)NEUROPATHY; K31.84 - GASTROPARESIS Status: Chronic (10) Dyslipidemia Code(s): E78.5 - HYPERLIPIDEMIA, UNSPECIFIED Status: Chronic (11) ESRD (end stage renal disease) on dialysis Code(s): N18.6 - END STAGE RENAL DISEASE; Z99.2 - DEPENDENCE ON RENAL DIALYSIS Status: Chronic (12) History of Clostridioides difficile colitis Code(s): Z86.19 - PERSONAL HISTORY OF OTHER INFECTIOUS AND PARASITIC DISEASES Status: Chronic (13) Hypertension Code(s): I10 - ESSENTIAL (PRIMARY) HYPERTENSION Status: Chronic (14) Protein-calorie malnutrition, severe Code(s): E43 - UNSPECIFIED SEVERE PROTEIN-CALORIE MALNUTRITION Status: Chronic (15) Secondary hyperparathyroidism of renal origin Code(s): N25.81 - SECONDARY HYPERPARATHYROIDISM OF RENAL ORIGIN Status: Chronic (16) Acute metabolic encephalopathy Code(s): G93.41 - METABOLIC ENCEPHALOPATHY Status: Resolved - Plan Plan: Plan: Admit to medical unit with telemetry Nephrology consultation, recommendations appreciated patient with acute metabolic encephalopathy multifactorial secondary to hypoglycemia and uremia patient will require emergent hemodialysis for hyperkalemia CT scan of the brain negative If patient's mentation does not return to her baseline further work up with MRI and neurology consultation may be required patient has no focal neurologic deficits No seizure activity reported patient is profoundly cachectic with severe protein calorie malnutrition diagnosed on admission continue other home medications is able blood pressure control decrease long-acting Lantus to avoid hypoglycemic episodes, encourage consistent oral intake short acting insulin for prandial coverage physical therapy/occupational therapy evaluation treatment G.I. prophylaxis DVT prophylaxis disposition: long-term prognosis for meaningful recovery is guarded
[2019-11-26] MEDS ORDERED: Lorazepam 2 MG/ML VIAL SLOW IVP PRN (17:25)
[2019-11-26] MEDS: Sevelamer Carbonate 800 MG TAB PO SCH (19:16)
[2019-11-26] MEDS: Brimonidine Tartrate 0.2% Ophth Soln 5 ml Bottle L EYE SCH ×2 (19:17→22:00)
[2019-11-26] MEDS: Dorzolamide HCl 2% Ophth Soln 10 ml Bottle L EYE SCH ×2 (19:17→22:34)
[2019-11-26] MEDS: hydrALAZINE 25 MG TAB PO SCH ×2 (19:17→21:54)
[2019-11-26] MEDS: Timolol 0.5% Ophth Soln 5 ml Bottle L EYE SCH ×2 (19:17→22:00)
[2019-11-26] MEDS: Heparin 5,000 UNITS/ML VIAL SC SCH ×2 (19:17→22:03)
[2019-11-26] MEDS ORDERED: Famotidine 20 MG TAB PO SCH (21:00)
[2019-11-26] MEDS ORDERED: levETIRAcetam 500 MG TAB PO SCH (21:00)
[2019-11-26] MEDS ORDERED: INSULIN DETEMIR 8 UNIT SQ SCH (21:00)
[2019-11-26] MEDS ORDERED: Non-Formulary Item 1 EACH (Insulin Detemir [Levemir] 10 UNIT) SQ SCH (21:00)
[2019-11-26] MEDS ORDERED: Insulin Glargine 8 UNITS in Pre-Filled Syringe 1 EACH SC SCH (21:00)
[2019-11-26] MEDS: Gabapentin 300 MG CAP PO SCH (21:52)
[2019-11-26] MEDS: Fidaxomicin 200 MG TAB PO SCH (21:52)
[2019-11-26] MEDS: Melatonin 3 MG TAB PO SCH (21:53)
[2019-11-26] MEDS: Saccharomyces boulardii 250 MG CAP PO SCH (21:53)
[2019-11-26] MEDS: Atropine Sulfate 1% Ophth Soln 5 ml Bottle L EYE SCH (22:02)
[2019-11-26 22:51] VITALS: BMI 16.5
[2019-11-27 03:44] LABS: Anion Gap 23 mmol/L (10-20); BUN (Urea Nitrogen) 19 mg/dL (7.0-18.7); Calc. Creatinine Clearance 15 mL/min (70-130); Calcium 9.6 mg/dL (7.8-10.44); Carbon Dioxide 22 mmol/L (22-29); Chloride 97 mmol/L (98-107); Estimated GFR-MDRD 16; Glucose 126 mg/dL (70-105); Potassium 4.6 mmol/L (3.5-5.1); Sodium 137 mmol/L (136-145)
[2019-11-27] MEDS ORDERED: hydrALAZINE 25 MG TAB PO SCH (09:00)
[2019-11-27] MEDS ORDERED: PATIROMER CALCIUM SORBITEX 16.8 GM PO SCH (09:00)
[2019-11-27] MEDS: Sevelamer Carbonate 800 MG TAB PO SCH ×3 (09:19→17:19)
[2019-11-27] MEDS: Fidaxomicin 200 MG TAB PO SCH ×2 (09:21→21:02)
[2019-11-27] MEDS: Gabapentin 300 MG CAP PO SCH ×2 (09:22→21:02)
[2019-11-27] MEDS: AcetaZOLAMIDE 250 MG TAB PO SCH (09:22)
[2019-11-27] MEDS: Amlodipine 10 MG TAB PO SCH (09:22)
[2019-11-27] MEDS: Saccharomyces boulardii 250 MG CAP PO SCH ×2 (09:23→21:02)
[2019-11-27] MEDS: Dorzolamide HCl 2% Ophth Soln 10 ml Bottle L EYE SCH ×3 (09:23→21:03)
[2019-11-27] MEDS: Pantoprazole 40 MG VIAL IVP SCH (09:23)
[2019-11-27] MEDS: Insulin Glargine 8 UNITS in Pre-Filled Syringe 1 EACH SC SCH (09:24)
[2019-11-27] MEDS: Heparin 5,000 UNITS/ML VIAL SC SCH ×3 (09:24→21:03)
[2019-11-27] MEDS: Atropine Sulfate 1% Ophth Soln 5 ml Bottle L EYE SCH ×2 (09:24→21:03)
--- NOTE | 2019-11-27 09:37 | PRG ---
DATE OF SERVICE: 11/27/2019 SUBJECTIVE: Ms. Thao is a 44-year-old female with ESRD, was admitted for hypoglycemia and hyperkalemia. She underwent emergent hemodialysis. Potassium is much improved. Her blood sugar is also much improved. Most recent blood sugar is now 143. No other complaints today. She is more awake. Denies any chest pain or shortness of breath. OBJECTIVE: VITAL SIGNS: Blood pressure 150/72, heart rate 75, respiratory rate 14, temperature 98.4, and pulse ox 98%. GENERAL: Noted to be awake, alert, comfortable, not in distress. SKIN: Adequate turgor. HEENT: She has pinkish conjunctivae. Anicteric sclerae. NECK: No neck mass. No carotid bruits. No JVD. CHEST: No deformities. LUNGS: Clear breath sounds. HEART: Normal sinus rhythm. No murmur. No gallops. No rubs. ABDOMEN: Globular, soft, and nontender. No masses. EXTREMITIES: No edema. NEUROLOGICAL: The patient has a positive right eye prosthesis. MEDICATIONS: Medications of November 27, 2019, reviewed. LABORATORY DATA: Laboratories of November 26, 2019; white count 6.1, hemoglobin 10.6. On November 27, 2019; sodium 137, potassium 4.6, chloride 97, carbon dioxide 22, BUN 19, creatinine 3.21, glucose 126, and calcium 9.6. Ammonia level 34. ASSESSMENT AND PLAN: 1. Decreased mentation secondary to hypoglycemia, which is now much improved with improved blood sugar. 2. Hyperkalemia, resolved with dialysis. 3. End-stage renal disease. We will continue 3 times a week hemodialysis regimen with this patient with fluid removal as tolerated. There is no indication for any acute dialytic intervention. Job ID: [id number]
[2019-11-27] MEDS: Timolol 0.5% Ophth Soln 5 ml Bottle L EYE SCH ×3 (10:44→21:04)
[2019-11-27] MEDS: Famotidine 20 MG TAB PO SCH (10:48)
[2019-11-27] MEDS: Brimonidine Tartrate 0.2% Ophth Soln 5 ml Bottle L EYE SCH ×3 (10:48→21:03)
[2019-11-27] MEDS: hydrALAZINE 25 MG TAB PO SCH ×3 (10:49→21:02)
[2019-11-27] MEDS ORDERED: hydrALAZINE 20 MG/ML VIAL SLOW IVP PRN (13:39)
[2019-11-27] MEDS ORDERED: Labetalol HCl 100 MG/20 ML VIAL SLOW IVP PRN (13:39)
[2019-11-27] MEDS ORDERED: niCARdipine 25 MG in Sodium Chloride 0.9% 250 ML 250 ML IVPB SCH (13:45)
--- NOTE | 2019-11-27 13:47 | PDOC.HOSPP ---
- Subjective Subjective: Seen and examined. Patient significantly improved. Now talking in full sentences. Moving arms without difficulties. Patient asks me what happened to her and I explained in detail with hypoglycemia and metabolic encephalopathy. All questions answered in detail. Insulin regimen has been decreased. Recommended consistent oral intake to avoid hypoglycemic episodes in the future. Stable for downgrade to medical unit. - Objective Vital Signs & Weight: Vital Signs (12 hours) Temp Pulse Resp BP BP Pulse Ox 11/27/19 12:48 97.4 F L 66 16 147/63 H 97 11/27/19 11:57 98.3 F 11/27/19 10:49 70 167/79 H 11/27/19 10:44 71 167/79 H 11/27/19 09:22 150/72 H 11/27/19 09:15 100 11/27/19 07:13 98.4 F 11/27/19 03:42 98.5 F 11/27/19 02:53 100 Weight Weight 90 lb 8 oz Most Recent Monitor Data Heart Rate from ECG 69 NIBP 167/79 NIBP BP-Mean 108 Respiration from ECG 25 SpO2 100 I&O: 11/26/19 11/27/19 11/28/19 06:59 06:59 06:59 Intake Total 110 Balance 110 Result Diagrams: 11/26/19 08:33 11/27/19 03:20 Additional Labs: Accuchecks 11/27/19 11/27/19 11/26/19 10:59 05:56 21:39 POC Glucose 175 H 143 H 107 11/26/19 11/26/19 17:12 14:35 POC Glucose 118 H 129 H Radiology Reviewed by me: Yes Hospitalist ROS - Review of Systems All other systems reviewed; all pertinent +/- noted in HPI/Subj - Medication Medications: Active Medications Generic Name Dose Route Start Last Admin Trade Name Freq PRN Reason Stop Dose Admin Acetazolamide 250 mg 11/27/19 09:00 11/27/19 09:22 Diamox PO 250 mg DAILY MEGAN Administration Amlodipine Besylate 10 mg 11/27/19 09:00 11/27/19 09:22 Norvasc PO 10 mg DAILY MEGAN Administration Atropine Sulfate 0 drop 11/26/19 21:00 11/27/19 09:24 Atropine 1% Ophth Soln L EYE 1 drop BID MEGAN Administration Brimonidine Tartrate 0 drop 11/26/19 15:00 11/27/19 10:48 Alphagan 0.2% Ophth Soln L EYE 1 drop TID MEGAN Administration Dorzolamide HCl 1 drop 11/26/19 15:00 11/27/19 09:23 Trusopt 2% Ophth Soln L EYE 1 drop TID MEGAN Administration Famotidine 20 mg 11/27/19 09:00 11/27/19 10:48 Pepcid PO 20 mg DAILY MEGAN Administration Fidaxomicin 200 mg 11/26/19 21:00 11/27/19 09:21 Dificid PO 200 mg BID MEGAN Administration Gabapentin 300 mg 11/26/19 21:00 11/27/19 09:22 Neurontin PO 300 mg BID MEGAN Administration Heparin Sodium (Porcine) 5,000 units 11/26/19 15:00 11/27/19 09:24 Heparin SC 5,000 units TID MEGAN Administration Hydralazine HCl 25 mg 11/26/19 15:00 11/27/19 10:49 Apresoline PO 25 mg TID MEGAN Administration Insulin Glargine 8 units/ 0.08 mls @ 0 mls/hr 11/26/19 21:00 11/26/19 21:55 Miscellaneous Medication SC Not Given HS MEGAN Insulin Glargine 8 units/ 0.08 mls @ 0 mls/hr 11/27/19 09:00 11/27/19 09:24 Miscellaneous Medication SC 0.08 mls QAM MEGAN Administration Levetiracetam 500 mg/ Device 100 mls @ 200 mls/hr 11/27/19 09:00 11/27/19 09: 33 IVPB 100 mls BID MEGAN Administration Melatonin 3 mg 11/26/19 21:00 11/26/19 21:53 Melatonin PO Not Given HS MEGAN Metoprolol Succinate 50 mg 11/27/19 09:00 11/27/19 09:22 Toprol Xl PO 50 mg DAILY MEGAN Administration Pantoprazole Sodium 40 mg 11/27/19 09:00 11/27/19 09:23 Protonix IVP 40 mg DAILY MEGAN Administration Saccharomyces Boulardii 250 mg 11/26/19 21:00 11/27/19 09:23 Florastor PO 250 mg BID MEGAN Administration Sertraline HCl 50 mg 11/27/19 09:00 11/27/19 09:21 Zoloft PO 50 mg DAILY MEGAN Administration Sevelamer Carbonate 2,400 mg 11/26/19 12:00 11/27/19 11:00 Renvela PO Not Given TID-WM MEGAN Timolol Maleate 0 drop 11/26/19 15:00 11/27/19 10:44 Timoptic 0.5% Ophth Soln L EYE 1 drop TID MEGAN Administration - Exam General Appearance: NAD Eye: PERRL, anicteric sclera Eye - other findings: Right eye enucleation, left eye blind/ hazy iris ENT: normocephalic atraumatic, moist mucosa Neck: supple, symmetric, no lymphadenopathy Heart: no murmur, no gallops Respiratory: CTAB, no wheezes, no rales, no ronchi, no tachypnea Gastrointestinal: soft, non-tender, no palpable masses, no guarding, no rigidity Extremities: no edema Skin: no lesions, no rashes Neurological: cranial nerve grossly intact, no focal deficits Musculoskeletal: generalized weakness Psychiatric: normal affect, normal behavior, oriented to person, oriented to place Hosp A/P (1) C. difficile colitis Status: Acute (2) Glaucoma Code(s): H40.9 - UNSPECIFIED GLAUCOMA Status: Acute (3) Headache Code(s): R51 - HEADACHE Status: Acute (4) Hyperkalemia Code(s): E87.5 - HYPERKALEMIA Status: Acute (5) Metabolic acidosis Code(s): E87.2 - ACIDOSIS Status: Acute (6) Depression Code(s): F32.9 - MAJOR DEPRESSIVE DISORDER, SINGLE EPISODE, UNSPECIFIED Status : Chronic (7) Diabetes mellitus with diabetic polyneuropathy Code(s): E11.42 - TYPE 2 DIABETES MELLITUS WITH DIABETIC POLYNEUROPATHY Status : Chronic (8) Diabetes type 1, uncontrolled Code(s): E10.65 - TYPE 1 DIABETES MELLITUS WITH HYPERGLYCEMIA Status: Chronic (9) Diabetic gastroparesis Code(s): E11.43 - TYPE 2 DIABETES W DIABETIC AUTONOMIC (POLY)NEUROPATHY; K31.84 - GASTROPARESIS Status: Chronic (10) Dyslipidemia Code(s): E78.5 - HYPERLIPIDEMIA, UNSPECIFIED Status: Chronic (11) ESRD (end stage renal disease) on dialysis Code(s): N18.6 - END STAGE RENAL DISEASE; Z99.2 - DEPENDENCE ON RENAL DIALYSIS Status: Chronic (12) History of Clostridioides difficile colitis Code(s): Z86.19 - PERSONAL HISTORY OF OTHER INFECTIOUS AND PARASITIC DISEASES Status: Chronic (13) Hypertension Code(s): I10 - ESSENTIAL (PRIMARY) HYPERTENSION Status: Chronic (14) Protein-calorie malnutrition, severe Code(s): E43 - UNSPECIFIED SEVERE PROTEIN-CALORIE MALNUTRITION Status: Chronic (15) Secondary hyperparathyroidism of renal origin Code(s): N25.81 - SECONDARY HYPERPARATHYROIDISM OF RENAL ORIGIN Status: Chronic (16) Acute metabolic encephalopathy Code(s): G93.41 - METABOLIC ENCEPHALOPATHY Status: Resolved - Plan Plan: Intermediate medical care for, stable for downgraded to medical unit nephrology consultation, recommendations appreciated neurology consultation, recommendations appreciated patient with acute metabolic encephalopathy multifactorial secondary to hypoglycemia and uremia has now resolved EEG brain CT scan of the brain negative patient back to her normal level of mentation after hemodialysis patient profoundly cachectic with severe protein calorie malnutrition diagnosed on a mission continue other home medications as able blood pressure control decrease long-acting Lantus to avoid hypoglycemic episodes, encourage consistent oral intake short acting insulin for perennial coverage physical therapy/occupational therapy evaluation and treatment G.I. prophylaxis next line DVT prophylaxis disposition long-term prognosis for meaningful recovery is guarded.
[2019-11-27] MEDS ORDERED: PARoxetine 20 MG TAB ONE (17:35)
[2019-11-27] MEDS: Melatonin 3 MG TAB PO SCH (21:02)
[2019-11-27] MEDS: Insulin Glargine 6 UNITS in Pre-Filled Syringe 1 EACH SC SCH (21:03)
[2019-11-27] MEDS: Acetaminophen 325 MG TAB PO PRN (23:29)
--- NOTE | 2019-11-28 11:21 | PRG ---
DATE OF SERVICE: 11/28/2019 SUBJECTIVE: Ms. Thao is a 44-year-old female with ESRD, was admitted due to symptomatic hypoglycemia as well as hyperkalemia. She underwent emergent hemodialysis at that time. Mentation is still not to her baseline. She is still sleepy. Sugar is improved. With emergent hemodialysis, potassium has remained improved. She is undergoing a regular dialysis today. She still has decreased p.o. intake. No complaints of chest pain or shortness of breath. OBJECTIVE: VITAL SIGNS: Blood pressure 169/74, heart rate 65, respiratory rate 18, temperature 98.4, and pulse ox 99%. GENERAL: Noted to be sleepy, but arousable, not in distress. SKIN: Adequate turgor. HEENT: She has slightly pale conjunctivae. Anicteric sclerae. No neck mass. No carotid bruits. No JVD. CHEST: No deformities. LUNGS: Clear breath sounds. HEART: Normal sinus rhythm. No murmurs, gallops, or rubs. ABDOMEN: Globular, soft, and nontender. No masses. EXTREMITIES: No edema. NEUROLOGIC: Arousable, but sleepy. The patient has right eye prosthesis. Decreased visual acuity. MEDICATIONS: Of November 28, 2019, was reviewed. LABORATORY DATA: Laboratories of November 27, 2019; potassium 4.6, BUN 19, and creatinine 3.21. Hemoglobin was 10.6. ASSESSMENT AND PLAN: 1. Hyperkalemia, much improved with dialysis. Fluid removal. The patient is again scheduled for dialysis today. This is a regular dialysis session. 2. End-stage renal disease, continue Sunday, Sunday, and Sunday dialysis. Fluid removal as tolerated. 3. Anemia. The patient will be started on a regular Procrit shots. 7500 units subcu every week. 4. Overall prognosis remains guarded. Job ID: [id number]
[2019-11-28] MEDS: AcetaZOLAMIDE 250 MG TAB PO SCH (12:17)
[2019-11-28] MEDS: Sevelamer Carbonate 800 MG TAB PO SCH ×3 (12:17→18:53)
[2019-11-28] MEDS: hydrALAZINE 25 MG TAB PO SCH ×4 (12:17→21:48)
[2019-11-28] MEDS: Amlodipine 10 MG TAB PO SCH (12:20)
[2019-11-28] MEDS: Saccharomyces boulardii 250 MG CAP PO SCH ×3 (12:20→21:48)
[2019-11-28] MEDS: Fidaxomicin 200 MG TAB PO SCH ×3 (12:21→21:47)
[2019-11-28] MEDS: Gabapentin 300 MG CAP PO SCH ×3 (12:21→21:48)
[2019-11-28] MEDS: Famotidine 20 MG TAB PO SCH (12:23)
[2019-11-28] MEDS: Insulin Glargine 8 UNITS in Pre-Filled Syringe 1 EACH SC SCH (12:23)
[2019-11-28] MEDS: Pantoprazole 40 MG VIAL IVP SCH (12:44)
[2019-11-28] MEDS: Atropine Sulfate 1% Ophth Soln 5 ml Bottle L EYE SCH ×2 (12:56→21:44)
[2019-11-28] MEDS: Brimonidine Tartrate 0.2% Ophth Soln 5 ml Bottle L EYE SCH ×3 (12:56→21:45)
[2019-11-28] MEDS: Heparin 5,000 UNITS/ML VIAL SC SCH ×3 (12:56→21:13)
[2019-11-28] MEDS: Dorzolamide HCl 2% Ophth Soln 10 ml Bottle L EYE SCH ×3 (12:56→21:45)
[2019-11-28] MEDS: Timolol 0.5% Ophth Soln 5 ml Bottle L EYE SCH ×3 (12:57→21:46)
--- NOTE | 2019-11-28 13:50 | PDOC.HOSPP ---
- Subjective Subjective: Patient sleepy this a.m. I'm not at her baseline functional level of status. Nephrology who knows her best. Patient going for hemodialysis this afternoon. Patient with poor oral intake though we're not seeing low blood sugars anymore. Pending neurology input and official read from EEG. - Objective Vital Signs & Weight: Weight Admit Weight 90 lb 8 oz Weight 90 lb 8 oz Most Recent Monitor Data Heart Rate from ECG 69 NIBP 167/79 NIBP BP-Mean 108 Respiration from ECG 25 SpO2 100 I&O: 11/27/19 11/28/19 11/29/19 06:59 06:59 06:59 Intake Total 110 120 Balance 110 120 Result Diagrams: 11/26/19 08:33 11/27/19 03:20 Additional Labs: Accuchecks 11/28/19 11/27/19 11/27/19 05:30 20:50 16:29 POC Glucose 115 H 197 H 131 H Hospitalist ROS - Review of Systems All other systems reviewed; all pertinent +/- noted in HPI/Subj - Medication Medications: Active Medications Generic Name Dose Route Start Last Admin Trade Name Freq PRN Reason Stop Dose Admin Acetaminophen 650 mg 11/26/19 10:12 11/27/19 23:29 Tylenol PO 650 mg Q4H PRN Administration Headache/Fever/Mild Pain (1-3) Acetazolamide 250 mg 11/27/19 09:00 11/27/19 09:22 Diamox PO 250 mg DAILY MEGAN Administration Amlodipine Besylate 10 mg 11/27/19 09:00 11/27/19 09:22 Norvasc PO 10 mg DAILY MEGAN Administration Atropine Sulfate 0 drop 11/26/19 21:00 11/27/19 21:03 Atropine 1% Ophth Soln L EYE 1 drop BID MEGAN Administration Brimonidine Tartrate 0 drop 11/26/19 15:00 11/27/19 21:03 Alphagan 0.2% Ophth Soln L EYE 1 drop TID MEGAN Administration Dorzolamide HCl 1 drop 11/26/19 15:00 11/27/19 21:03 Trusopt 2% Ophth Soln L EYE 1 drop TID MEGAN Administration Famotidine 20 mg 11/27/19 09:00 11/27/19 10:48 Pepcid PO 20 mg DAILY MEGAN Administration Fidaxomicin 200 mg 11/26/19 21:00 11/27/19 21:02 Dificid PO 200 mg BID MEGAN Administration Gabapentin 300 mg 11/26/19 21:00 11/27/19 21:02 Neurontin PO 300 mg BID MEGAN Administration Heparin Sodium (Porcine) 5,000 units 11/26/19 15:00 11/27/19 21:03 Heparin SC 5,000 units TID MEGAN Administration Hydralazine HCl 25 mg 11/26/19 15:00 11/27/19 21:02 Apresoline PO 25 mg TID MEGAN Administration Insulin Glargine 8 units/ 0.08 mls @ 0 mls/hr 11/27/19 09:00 11/27/19 09:24 Miscellaneous Medication SC 0.08 mls QAM MEGAN Administration Levetiracetam 500 mg/ Device 100 mls @ 200 mls/hr 11/27/19 09:00 11/27/19 21: 04 IVPB 100 mls BID MEGAN Administration Insulin Glargine 6 units/ 0.06 mls @ 1 mls/hr 11/27/19 21:00 11/27/19 21:03 Miscellaneous Medication SC 0.06 mls HS MEGAN Administration Lorazepam 2 mg 11/26/19 17:25 11/27/19 23:29 Ativan SLOW IVP 2 mg Q6H PRN Administration Seizures Melatonin 3 mg 11/26/19 21:00 11/27/19 21:02 Melatonin PO 3 mg HS MEGAN Administration Metoprolol Succinate 50 mg 11/27/19 09:00 11/27/19 09:22 Toprol Xl PO 50 mg DAILY MEGAN Administration Pantoprazole Sodium 40 mg 11/27/19 09:00 11/27/19 09:23 Protonix IVP 40 mg DAILY MEGAN Administration Saccharomyces Boulardii 250 mg 11/26/19 21:00 11/27/19 21:02 Florastor PO 250 mg BID MEGAN Administration Sertraline HCl 50 mg 11/27/19 09:00 11/27/19 09:21 Zoloft PO 50 mg DAILY MEGAN Administration Sevelamer Carbonate 2,400 mg 11/26/19 12:00 11/27/19 17:19 Renvela PO 2,400 mg TID-WM MEGAN Administration Timolol Maleate 0 drop 11/26/19 15:00 11/27/19 21:04 Timoptic 0.5% Ophth Soln L EYE 1 drop TID MEGAN Administration - Exam General Appearance: NAD Eye: PERRL, anicteric sclera Eye - other findings: Chronic eye problems billaterally ENT: normocephalic atraumatic Neck: supple, symmetric, no lymphadenopathy Heart: no murmur, no gallops, no rubs Respiratory: no wheezes, no rales, no ronchi, normal chest expansion, no tachypnea Gastrointestinal: soft, non-tender, no guarding, no rigidity Extremities: no clubbing, no edema Skin: normal turgor, no rashes Neurological: cranial nerve grossly intact Musculoskeletal: normal tone, no muscle wasting Psychiatric: oriented to person, oriented to place, somnolent Hosp A/P (1) C. difficile colitis Status: Acute (2) Glaucoma Code(s): H40.9 - UNSPECIFIED GLAUCOMA Status: Acute (3) Headache Code(s): R51 - HEADACHE Status: Acute (4) Hyperkalemia Code(s): E87.5 - HYPERKALEMIA Status: Acute (5) Metabolic acidosis Code(s): E87.2 - ACIDOSIS Status: Acute (6) Depression Code(s): F32.9 - MAJOR DEPRESSIVE DISORDER, SINGLE EPISODE, UNSPECIFIED Status : Chronic (7) Diabetes mellitus with diabetic polyneuropathy Code(s): E11.42 - TYPE 2 DIABETES MELLITUS WITH DIABETIC POLYNEUROPATHY Status : Chronic (8) Diabetes type 1, uncontrolled Code(s): E10.65 - TYPE 1 DIABETES MELLITUS WITH HYPERGLYCEMIA Status: Chronic (9) Diabetic gastroparesis Code(s): E11.43 - TYPE 2 DIABETES W DIABETIC AUTONOMIC (POLY)NEUROPATHY; K31.84 - GASTROPARESIS Status: Chronic (10) Dyslipidemia Code(s): E78.5 - HYPERLIPIDEMIA, UNSPECIFIED Status: Chronic (11) ESRD (end stage renal disease) on dialysis Code(s): N18.6 - END STAGE RENAL DISEASE; Z99.2 - DEPENDENCE ON RENAL DIALYSIS Status: Chronic (12) History of Clostridioides difficile colitis Code(s): Z86.19 - PERSONAL HISTORY OF OTHER INFECTIOUS AND PARASITIC DISEASES Status: Chronic (13) Hypertension Code(s): I10 - ESSENTIAL (PRIMARY) HYPERTENSION Status: Chronic (14) Protein-calorie malnutrition, severe Code(s): E43 - UNSPECIFIED SEVERE PROTEIN-CALORIE MALNUTRITION Status: Chronic (15) Secondary hyperparathyroidism of renal origin Code(s): N25.81 - SECONDARY HYPERPARATHYROIDISM OF RENAL ORIGIN Status: Chronic (16) Acute metabolic encephalopathy Code(s): G93.41 - METABOLIC ENCEPHALOPATHY Status: Resolved - Plan Plan: Medical unit nephrology consultation, recommendations appreciated neurology consultation, recommendations appreciated patient with acute metabolic encephalopathy multifactorial secondary to hypoglycemia and uremia improved EEG brain Keppra per Neurology CT scan of the brain negative patient back to her normal level of mentation after hemodialysis patient profoundly cachectic with severe protein calorie malnutrition diagnosed on a mission continue other home medications as able blood pressure control decrease long-acting Lantus to avoid hypoglycemic episodes, encourage consistent oral intake short acting insulin for perennial coverage physical therapy/occupational therapy evaluation and treatment G.I. prophylaxis next line DVT prophylaxis disposition long-term prognosis for meaningful recovery is guarded.
--- NOTE | 2019-11-28 18:18 | CON ---
DATE OF CONSULTATION: 11/28/2019 CONSULTING PHYSICIAN: Hospitalist Service. IMPRESSION: 1. Transient encephalopathy secondary to hypoglycemia. 2. Diabetes. 3. Diabetic neuropathy with neuropathic pain. 4. Renal failure. 5. Blindness. PLAN: Continue supportive measures. HISTORY OF PRESENT ILLNESS: Ms. Thao is a 44-year-old woman, who came in from the care home. She apparently had a blood sugar of 40. She was treated with D50. She has been admitted for further treatment. She had an EEG done earlier in the hospitalization, which showed some diffuse slowing. Her blood sugars have become a bit more normalized in the 100 to 200 range. At this time, she reports that she has no particular complaints other than her chronic neuropathic pain. She feels like it is reasonably well managed with her current medications. She did not have any other issues to address. PAST MEDICAL HISTORY: As listed above. ALLERGIES: NONE. SOCIAL: snf resident. No tobacco or alcohol use. FAMILY HISTORY: Noncontributory. REVIEW OF SYSTEMS: Ten-system review of systems is otherwise negative. PHYSICAL EXAMINATION: VITAL SIGNS: Have been stable. She is afebrile. GENERAL: She is a cachectic, middle-aged woman, lying in bed, in no acute distress. HEENT: The right eye is some closed. The left cornea is opaque. Eye movements are intact. Cranium is normocephalic and atraumatic. NECK: Supple. No lymphadenopathy. EXTREMITIES: Without any edema. NEUROLOGIC: She was alert and cooperative. Her speech is fluent and clear. There was no facial asymmetry. She had diminished strength throughout. It shows atrophy of the musculature in all 4 extremities. Sensation was diminished in the feet to some degree, but she could perceive touch and proprioception. No abnormal movements were seen. Gait was not tested, although she reports she is able to ambulate to some degree. LABORATORY STUDIES: EKG showed normal sinus rhythm. SUMMARY: This is a middle-aged woman, who is severely debilitated by her diabetes and renal failure. I do not see any acute neurologic issues at this time. Job ID: [id number]
[2019-11-28] MEDS: Melatonin 3 MG TAB PO SCH (21:12)
[2019-11-28] MEDS: Insulin Glargine 6 UNITS in Pre-Filled Syringe 1 EACH SC SCH (21:14)
[2019-11-29] MEDS: HumaLOG 300 UNITS/3 ML VIAL SC PRN ×2 (06:05→16:00)
[2019-11-29] MEDS: Sevelamer Carbonate 800 MG TAB PO SCH ×3 (08:36→16:46)
[2019-11-29] MEDS: Amlodipine 10 MG TAB PO SCH (08:36)
[2019-11-29] MEDS: Gabapentin 300 MG CAP PO SCH ×2 (08:36→20:16)
[2019-11-29] MEDS: Dorzolamide HCl 2% Ophth Soln 10 ml Bottle L EYE SCH ×3 (08:37→20:28)
[2019-11-29] MEDS: Timolol 0.5% Ophth Soln 5 ml Bottle L EYE SCH ×3 (08:37→20:28)
[2019-11-29] MEDS: Atropine Sulfate 1% Ophth Soln 5 ml Bottle L EYE SCH ×2 (08:37→20:27)
[2019-11-29] MEDS: Brimonidine Tartrate 0.2% Ophth Soln 5 ml Bottle L EYE SCH ×3 (08:37→20:27)
[2019-11-29] MEDS: Insulin Glargine 8 UNITS in Pre-Filled Syringe 1 EACH SC SCH (08:38)
[2019-11-29] MEDS: Saccharomyces boulardii 250 MG CAP PO SCH ×2 (08:38→20:16)
[2019-11-29] MEDS: Heparin 5,000 UNITS/ML VIAL SC SCH ×3 (08:44→20:21)
[2019-11-29] MEDS: Pantoprazole 40 MG VIAL IVP SCH (09:17)
[2019-11-29] MEDS: AcetaZOLAMIDE 250 MG TAB PO SCH (09:17)
[2019-11-29] MEDS: Fidaxomicin 200 MG TAB PO SCH (09:18)
[2019-11-29] MEDS: hydrALAZINE 25 MG TAB PO SCH ×3 (09:21→20:27)
[2019-11-29] MEDS: Famotidine 20 MG TAB PO SCH (09:55)
--- NOTE | 2019-11-29 15:06 | PDOC.HOSPP ---
- Subjective Subjective: Seen and examined. Patient talking in full sentences, answering questions appropriately. Patient mentation is clear and she is asking appropriate questions. Patient's blood sugars have been high, she refused p.m. dose of insulin. 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 EEG shows slowing though there was no overt seizure activity. - Objective Vital Signs & Weight: Vital Signs (12 hours) Temp Pulse Resp BP BP BP Pulse Ox 11/29/19 09:21 60 145/64 H 11/29/19 08:37 60 11/29/19 08:36 92 145/64 H 11/29/19 08:00 98.1 F 92 19 149/79 H 93 L 11/29/19 07:50 93 L 11/29/19 05:25 98.6 F 63 20 157/76 H 94 L Weight Admit Weight 90 lb 8 oz Weight 90 lb 8 oz Most Recent Monitor Data Heart Rate from ECG 69 NIBP 167/79 NIBP BP-Mean 108 Respiration from ECG 25 SpO2 100 I&O: 11/28/19 11/29/19 11/30/19 06:59 06:59 06:59 Intake Total 120 520 Balance 120 520 Result Diagrams: 11/26/19 08:33 11/27/19 03:20 Additional Labs: Accuchecks 11/29/19 11/29/19 11/28/19 11:21 05:30 20:01 POC Glucose 166 H 311 H 269 H 11/28/19 11/28/19 17:07 12:57 POC Glucose 156 H 160 H Radiology Reviewed by me: Yes Hospitalist ROS - Review of Systems All other systems reviewed; all pertinent +/- noted in HPI/Subj - Medication Medications: Active Medications Generic Name Dose Route Start Last Admin Trade Name Freq PRN Reason Stop Dose Admin Acetaminophen 650 mg 11/26/19 10:12 11/27/19 23:29 Tylenol PO 650 mg Q4H PRN Administration Headache/Fever/Mild Pain (1-3) Acetazolamide 250 mg 11/27/19 09:00 11/29/19 09:17 Diamox PO 250 mg DAILY MEGAN Administration Amlodipine Besylate 10 mg 11/27/19 09:00 11/29/19 08:36 Norvasc PO 10 mg DAILY MEGAN Administration Atropine Sulfate 0 drop 11/26/19 21:00 11/29/19 08:37 Atropine 1% Ophth Soln L EYE 1 drop BID MEGAN Administration Brimonidine Tartrate 0 drop 11/26/19 15:00 11/29/19 08:37 Alphagan 0.2% Ophth Soln L EYE 1 drop TID MEGAN Administration Dorzolamide HCl 1 drop 11/26/19 15:00 11/29/19 08:37 Trusopt 2% Ophth Soln L EYE 1 drop TID MEGAN Administration Famotidine 20 mg 11/27/19 09:00 11/29/19 09:55 Pepcid PO Not Given DAILY [facility] Fidaxomicin 200 mg 11/26/19 21:00 11/29/19 09:18 Dificid PO 200 mg BID MEGAN Administration Gabapentin 300 mg 11/26/19 21:00 11/29/19 08:36 Neurontin PO 300 mg BID MEGAN Administration Heparin Sodium (Porcine) 5,000 units 11/26/19 15:00 11/29/19 08:44 Heparin SC Not Given TID MEGAN Hydralazine HCl 25 mg 11/26/19 15:00 11/29/19 09:21 Apresoline PO Not Given TID [facility] Hydralazine HCl 10 mg 11/26/19 10:20 11/28/19 14:42 Apresoline SLOW IVP 10 mg Q4H PRN Administration Hypertension Insulin Glargine 8 units/ 0.08 mls @ 0 mls/hr 11/27/19 09:00 11/29/19 08:38 Miscellaneous Medication SC 0.08 mls QAM MEGAN Administration Levetiracetam 500 mg/ Device 100 mls @ 200 mls/hr 11/27/19 09:00 11/29/19 09: 15 IVPB 100 mls BID MEGAN Administration Insulin Glargine 6 units/ 0.06 mls @ 1 mls/hr 11/27/19 21:00 11/28/19 21:14 Miscellaneous Medication SC 0.06 mls HS MEGAN Administration Insulin Human Lispro 0 units 11/26/19 10:19 11/29/19 06:05 Humalog SC 5 unit .MILD SLIDING SCALE PRN Administration Mild Correctional Scale Lorazepam 2 mg 11/26/19 17:25 11/27/19 23:29 Ativan SLOW IVP 2 mg Q6H PRN Administration Seizures Melatonin 3 mg 11/26/19 21:00 11/28/19 21:12 Melatonin PO 3 mg HS MEGAN Administration Metoprolol Succinate 50 mg 11/27/19 09:00 11/29/19 08:36 Toprol Xl PO 50 mg DAILY MEGAN Administration Pantoprazole Sodium 40 mg 11/27/19 09:00 11/29/19 09:17 Protonix IVP 40 mg DAILY MEGAN Administration Saccharomyces Boulardii 250 mg 11/26/19 21:00 11/29/19 08:38 Florastor PO Not Given BID MEGAN Sertraline HCl 50 mg 11/27/19 09:00 11/29/19 08:36 Zoloft PO 50 mg DAILY MEGAN Administration Sevelamer Carbonate 2,400 mg 11/26/19 12:00 11/29/19 12:30 Renvela PO Not Given TID-WM MEGAN Timolol Maleate 0 drop 11/26/19 15:00 11/29/19 08:37 Timoptic 0.5% Ophth Soln L EYE 1 drop TID MEGAN Administration - Exam General Appearance: NAD, awake alert Eye: anicteric sclera Eye - other findings: Chronic eye issues unchanged ENT: normocephalic atraumatic, moist mucosa Neck: supple, symmetric Heart: no murmur, no gallops, no rubs Respiratory: CTAB, no wheezes, no rales, no ronchi Gastrointestinal: soft, non-tender, no palpable masses, no guarding, no rigidity Extremities: no edema Skin: no lesions, no rashes Neurological: cranial nerve grossly intact, no focal deficits Musculoskeletal: generalized weakness Psychiatric: normal affect, normal behavior, A&O x 3 Hosp A/P (1) C. difficile colitis Status: Acute (2) Glaucoma Code(s): H40.9 - UNSPECIFIED GLAUCOMA Status: Acute (3) Headache Code(s): R51 - HEADACHE Status: Acute (4) Hyperkalemia Code(s): E87.5 - HYPERKALEMIA Status: Acute (5) Metabolic acidosis Code(s): E87.2 - ACIDOSIS Status: Acute (6) Depression Code(s): F32.9 - MAJOR DEPRESSIVE DISORDER, SINGLE EPISODE, UNSPECIFIED Status : Chronic (7) Diabetes mellitus with diabetic polyneuropathy Code(s): E11.42 - TYPE 2 DIABETES MELLITUS WITH DIABETIC POLYNEUROPATHY Status : Chronic (8) Diabetes type 1, uncontrolled Code(s): E10.65 - TYPE 1 DIABETES MELLITUS WITH HYPERGLYCEMIA Status: Chronic (9) Diabetic gastroparesis Code(s): E11.43 - TYPE 2 DIABETES W DIABETIC AUTONOMIC (POLY)NEUROPATHY; K31.84 - GASTROPARESIS Status: Chronic (10) Dyslipidemia Code(s): E78.5 - HYPERLIPIDEMIA, UNSPECIFIED Status: Chronic (11) ESRD (end stage renal disease) on dialysis Code(s): N18.6 - END STAGE RENAL DISEASE; Z99.2 - DEPENDENCE ON RENAL DIALYSIS Status: Chronic (12) History of Clostridioides difficile colitis Code(s): Z86.19 - PERSONAL HISTORY OF OTHER INFECTIOUS AND PARASITIC DISEASES Status: Chronic (13) Hypertension Code(s): I10 - ESSENTIAL (PRIMARY) HYPERTENSION Status: Chronic (14) Protein-calorie malnutrition, severe Code(s): E43 - UNSPECIFIED SEVERE PROTEIN-CALORIE MALNUTRITION Status: Chronic (15) Secondary hyperparathyroidism of renal origin Code(s): N25.81 - SECONDARY HYPERPARATHYROIDISM OF RENAL ORIGIN Status: Chronic (16) Acute metabolic encephalopathy Code(s): G93.41 - METABOLIC ENCEPHALOPATHY Status: Resolved - Plan Plan: Medical unit nephrology consultation, recommendations appreciated neurology consultation, recommendations appreciated patient with acute metabolic encephalopathy multifactorial secondary to hypoglycemia and uremia improved EEG brain, slow no seizure Keppra per Neurology CT scan of the brain negative patient back to her normal level of mentation after hemodialysis patient profoundly cachectic with severe protein calorie malnutrition diagnosed on a mission continue other home medications as able blood pressure control decrease long-acting Lantus to avoid hypoglycemic episodes, encourage consistent oral intake short acting insulin for perennial coverage physical therapy/occupational therapy evaluation and treatment G.I. prophylaxis next line DVT prophylaxis disposition long-term prognosis for meaningful recovery is guarded.
[2019-11-29] MEDS: Melatonin 3 MG TAB PO SCH (20:16)
[2019-11-29] MEDS: Insulin Glargine 6 UNITS in Pre-Filled Syringe 1 EACH SC SCH (20:28)
[2019-11-30] MEDS: Amlodipine 10 MG TAB PO SCH (08:56)
[2019-11-30] MEDS: Gabapentin 300 MG CAP PO SCH ×2 (08:56→22:09)
[2019-11-30] MEDS: AcetaZOLAMIDE 250 MG TAB PO SCH (08:56)
[2019-11-30] MEDS: Dorzolamide HCl 2% Ophth Soln 10 ml Bottle L EYE SCH ×3 (08:57→22:15)
[2019-11-30] MEDS: hydrALAZINE 25 MG TAB PO SCH ×3 (08:57→22:09)
[2019-11-30] MEDS: Atropine Sulfate 1% Ophth Soln 5 ml Bottle L EYE SCH ×2 (08:57→22:17)
[2019-11-30] MEDS: Timolol 0.5% Ophth Soln 5 ml Bottle L EYE SCH ×3 (08:57→22:18)
[2019-11-30] MEDS: Sevelamer Carbonate 800 MG TAB PO SCH ×3 (08:58→17:47)
[2019-11-30] MEDS: Insulin Glargine 8 UNITS in Pre-Filled Syringe 1 EACH SC SCH (08:58)
[2019-11-30] MEDS: Heparin 5,000 UNITS/ML VIAL SC SCH ×3 (08:58→22:10)
[2019-11-30] MEDS: Brimonidine Tartrate 0.2% Ophth Soln 5 ml Bottle L EYE SCH ×3 (08:58→22:16)
[2019-11-30] MEDS: Famotidine 20 MG TAB PO SCH (08:58)
[2019-11-30] MEDS: Saccharomyces boulardii 250 MG CAP PO SCH ×2 (08:59→22:08)
[2019-11-30] MEDS: Pantoprazole 40 MG VIAL IVP SCH (08:59)
[2019-11-30] MEDS: HumaLOG 300 UNITS/3 ML VIAL SC PRN (12:15)
--- NOTE | 2019-11-30 12:31 | PDOC.HOSPP ---
- Subjective Subjective: Seen and examined. Patient tolerating diet. She is having some abdominal bloating. Loose stools per patient not consistent with C. diff. Patient is finished full course of antibiotics for C. diff. Patient answering questions appropriately and is near her baseline. Patient did improve with maximal medical therapy and mentation is now clear, the question is whether she would need seizure medication long-term. She did improve when blood sugars controlled , also after HD. - Objective Vital Signs & Weight: Vital Signs (12 hours) Temp Pulse Resp BP BP Pulse Ox 11/30/19 08:57 62 151/78 H 11/30/19 08:56 62 151/78 H 11/30/19 08:00 97.7 F 62 16 151/78 H 96 Weight Admit Weight 90 lb 8 oz Weight 90 lb 8 oz Most Recent Monitor Data Heart Rate from ECG 69 NIBP 167/79 NIBP BP-Mean 108 Respiration from ECG 25 SpO2 100 I&O: 11/29/19 11/30/19 12/01/19 06:59 06:59 06:59 Intake Total 520 500 Output Total 1 Balance 520 499 Result Diagrams: 11/26/19 08:33 11/27/19 03:20 Additional Labs: Accuchecks 11/30/19 11/30/19 11/29/19 11:56 04:40 20:17 POC Glucose 252 H 348 H 298 H 11/29/19 15:39 POC Glucose 348 H Radiology Reviewed by me: Yes Hospitalist ROS - Review of Systems All other systems reviewed; all pertinent +/- noted in HPI/Subj - Medication Medications: Active Medications Generic Name Dose Route Start Last Admin Trade Name Vineet PRN Reason Stop Dose Admin Acetaminophen 650 mg 11/26/19 10:12 11/27/19 23:29 Tylenol PO 650 mg Q4H PRN Administration Headache/Fever/Mild Pain (1-3) Acetazolamide 250 mg 11/27/19 09:00 11/30/19 08:56 Diamox PO 250 mg DAILY MEGAN Administration Amlodipine Besylate 10 mg 11/27/19 09:00 11/30/19 08:56 Norvasc PO 10 mg DAILY MEGAN Administration Atropine Sulfate 0 drop 11/26/19 21:00 11/30/19 08:57 Atropine 1% Ophth Soln L EYE 1 drop BID MEGAN Administration Brimonidine Tartrate 0 drop 11/26/19 15:00 11/30/19 08:58 Alphagan 0.2% Ophth Soln L EYE 1 drop TID MEGAN Administration Dorzolamide HCl 1 drop 11/26/19 15:00 11/30/19 08:57 Trusopt 2% Ophth Soln L EYE 1 drop TID MEGAN Administration Famotidine 20 mg 11/27/19 09:00 11/30/19 08:58 Pepcid PO Not Given DAILY MEGAN Gabapentin 300 mg 11/26/19 21:00 11/30/19 08:56 Neurontin PO 300 mg BID MEGAN Administration Heparin Sodium (Porcine) 5,000 units 11/26/19 15:00 11/30/19 08:58 Heparin SC Not Given TID MEGAN Hydralazine HCl 25 mg 11/26/19 15:00 11/30/19 08:57 Apresoline PO 25 mg TID MEGAN Administration Hydralazine HCl 10 mg 11/26/19 10:20 11/28/19 14:42 Apresoline SLOW IVP 10 mg Q4H PRN Administration Hypertension Insulin Glargine 8 units/ 0.08 mls @ 0 mls/hr 11/27/19 09:00 11/30/19 08:58 Miscellaneous Medication SC 0.08 mls QAM MEGAN Administration Levetiracetam 500 mg/ Device 100 mls @ 200 mls/hr 11/27/19 09:00 11/30/19 09: 33 IVPB 100 mls BID MEGAN Administration Insulin Glargine 6 units/ 0.06 mls @ 1 mls/hr 11/27/19 21:00 11/29/19 20:28 Miscellaneous Medication SC 0.06 mls HS MEGAN Administration Insulin Human Lispro 0 units 11/26/19 10:19 11/30/19 12:15 Humalog SC 3 unit .MILD SLIDING SCALE PRN Administration Mild Correctional Scale Lorazepam 2 mg 11/26/19 17:25 11/27/19 23:29 Ativan SLOW IVP 2 mg Q6H PRN Administration Seizures Melatonin 3 mg 11/26/19 21:00 11/29/19 20:16 Melatonin PO 3 mg HS MEGAN Administration Metoprolol Succinate 50 mg 11/27/19 09:00 11/30/19 08:57 Toprol Xl PO 50 mg DAILY MEGAN Administration Pantoprazole Sodium 40 mg 11/27/19 09:00 11/30/19 08:59 Protonix IVP 40 mg DAILY MEGAN Administration Saccharomyces Boulardii 250 mg 11/26/19 21:00 11/30/19 08:59 Florastor PO Not Given BID MEGAN Sertraline HCl 50 mg 11/27/19 09:00 11/30/19 08:57 Zoloft PO 50 mg DAILY MEGAN Administration Sevelamer Carbonate 2,400 mg 11/26/19 12:00 11/30/19 08:58 Renvela PO Not Given TID-WM MEGAN Timolol Maleate 0 drop 11/26/19 15:00 11/30/19 08:57 Timoptic 0.5% Ophth Soln L EYE 1 drop TID MEGAN Administration - Exam General Appearance: NAD Eye: PERRL, anicteric sclera ENT: normocephalic atraumatic, moist mucosa Neck: supple, symmetric, no thyromegaly, no lymphadenopathy Heart: no murmur, no gallops, no rubs Respiratory: CTAB, no wheezes, no rales, no ronchi, normal chest expansion Gastrointestinal: soft, non-tender, no guarding, no rigidity Extremities: 1+ LE edema Skin: no lesions, no rashes Neurological: cranial nerve grossly intact, no focal deficits Musculoskeletal: generalized weakness Psychiatric: flat affect, somnolent Hosp A/P (1) C. difficile colitis Status: Acute (2) Glaucoma Code(s): H40.9 - UNSPECIFIED GLAUCOMA Status: Acute (3) Headache Code(s): R51 - HEADACHE Status: Acute (4) Hyperkalemia Code(s): E87.5 - HYPERKALEMIA Status: Acute (5) Metabolic acidosis Code(s): E87.2 - ACIDOSIS Status: Acute (6) Depression Code(s): F32.9 - MAJOR DEPRESSIVE DISORDER, SINGLE EPISODE, UNSPECIFIED Status : Chronic (7) Diabetes mellitus with diabetic polyneuropathy Code(s): E11.42 - TYPE 2 DIABETES MELLITUS WITH DIABETIC POLYNEUROPATHY Status : Chronic (8) Diabetes type 1, uncontrolled Code(s): E10.65 - TYPE 1 DIABETES MELLITUS WITH HYPERGLYCEMIA Status: Chronic (9) Diabetic gastroparesis Code(s): E11.43 - TYPE 2 DIABETES W DIABETIC AUTONOMIC (POLY)NEUROPATHY; K31.84 - GASTROPARESIS Status: Chronic (10) Dyslipidemia Code(s): E78.5 - HYPERLIPIDEMIA, UNSPECIFIED Status: Chronic (11) ESRD (end stage renal disease) on dialysis Code(s): N18.6 - END STAGE RENAL DISEASE; Z99.2 - DEPENDENCE ON RENAL DIALYSIS Status: Chronic (12) History of Clostridioides difficile colitis Code(s): Z86.19 - PERSONAL HISTORY OF OTHER INFECTIOUS AND PARASITIC DISEASES Status: Chronic (13) Hypertension Code(s): I10 - ESSENTIAL (PRIMARY) HYPERTENSION Status: Chronic (14) Protein-calorie malnutrition, severe Code(s): E43 - UNSPECIFIED SEVERE PROTEIN-CALORIE MALNUTRITION Status: Chronic (15) Secondary hyperparathyroidism of renal origin Code(s): N25.81 - SECONDARY HYPERPARATHYROIDISM OF RENAL ORIGIN Status: Chronic (16) Acute metabolic encephalopathy Code(s): G93.41 - METABOLIC ENCEPHALOPATHY Status: Resolved - Plan Plan: Medical unit nephrology consultation, recommendations appreciated neurology consultation, recommendations appreciated patient with acute metabolic encephalopathy multifactorial secondary to hypoglycemia and uremia improved EEG brain, slow no seizure Keppra per Neurology CT scan of the brain negative Mentation near back to her baseline patient profoundly cachectic with severe protein calorie malnutrition diagnosed on a mission continue other home medications as able blood pressure control decrease long-acting Lantus to avoid hypoglycemic episodes, encourage consistent oral intake short acting insulin for perennial coverage physical therapy/occupational therapy evaluation and treatment G.I. prophylaxis next line DVT prophylaxis disposition long-term prognosis for meaningful recovery is guarded.
[2019-11-30] MEDS: Melatonin 3 MG TAB PO SCH (22:09)
[2019-11-30] MEDS: Insulin Glargine 6 UNITS in Pre-Filled Syringe 1 EACH SC SCH (22:13)
[2019-12-01] MEDS: Acetaminophen 325 MG TAB PO PRN (03:13)
--- NOTE | 2019-12-01 09:43 | PRG ---
DATE OF SERVICE: 12/01/2019 SUBJECTIVE: Ms. Thao is a 44-year-old female with ESRD and followed up by the [facility] for her hemodialysis. I have scheduled her for dialysis this afternoon. Plan is to do fluid removal only as tolerated. She is still having on and off diarrhea. She was checked for C diff and it was not suggestive of C diff. This could be from diabetic enteropathy. No new complaints today. No chest pain or shortness of breath. OBJECTIVE: VITAL SIGNS: Blood pressure 134/69, heart rate 58, respiratory rate 14, temperature 97.9, and pulse ox 97%. GENERAL: Awake, alert, and comfortable, not in distress. Decreased visual acuity. HEENT: Pinkish conjunctivae. Anicteric sclerae. NECK: No neck mass. No carotid bruits. No JVD. CHEST: No deformities. LUNGS: Clear breath sounds. No wheezing. No crackles. HEART: Normal sinus rhythm. No murmur. No gallops. No rubs. ABDOMEN: Globular, soft, and nontender. EXTREMITIES: No edema. No deformities. MEDICATIONS: Medications of December 01, 2019 were reviewed. LABORATORY DATA: December 01, 2019; none done. November 26, 2019; white count 6.1 and hemoglobin 10.6. December 01, 2019; glucose 94. November 27, 2019; BUN 19 and creatinine 3.21. ASSESSMENT AND PLAN: 1. End-stage renal disease, stable. We will continue current Sunday, Sunday, and Sunday dialysis regimen. Fluid removal only as tolerated. We will use minimal heparin. 2. Diarrhea, chronic in nature. No evidence of C diff colitis. Continue supportive care. Job ID: [id number]
[2019-12-01] MEDS: Sevelamer Carbonate 800 MG TAB PO SCH ×3 (10:00→17:23)
[2019-12-01] MEDS: Saccharomyces boulardii 250 MG CAP PO SCH ×2 (10:00→20:50)
[2019-12-01] MEDS: Amlodipine 10 MG TAB PO SCH (10:01)
[2019-12-01] MEDS: hydrALAZINE 25 MG TAB PO SCH ×2 (10:01→17:23)
[2019-12-01] MEDS: Gabapentin 300 MG CAP PO SCH ×2 (10:02→20:50)
[2019-12-01] MEDS: Brimonidine Tartrate 0.2% Ophth Soln 5 ml Bottle L EYE SCH ×3 (10:03→20:52)
[2019-12-01] MEDS: Dorzolamide HCl 2% Ophth Soln 10 ml Bottle L EYE SCH ×3 (10:11→20:51)
[2019-12-01] MEDS: Timolol 0.5% Ophth Soln 5 ml Bottle L EYE SCH ×3 (10:21→20:53)
[2019-12-01] MEDS: Atropine Sulfate 1% Ophth Soln 5 ml Bottle L EYE SCH ×2 (11:53→20:52)
[2019-12-01] MEDS: Heparin 5,000 UNITS/ML VIAL SC SCH ×3 (12:08→20:54)
[2019-12-01] MEDS: AcetaZOLAMIDE 250 MG TAB PO SCH (12:49)
[2019-12-01] MEDS: Famotidine 20 MG TAB PO SCH (12:50)
[2019-12-01] MEDS: Pantoprazole 40 MG VIAL IVP SCH (12:51)
[2019-12-01] MEDS: Insulin Glargine 8 UNITS in Pre-Filled Syringe 1 EACH SC SCH (12:56)
--- NOTE | 2019-12-01 14:45 | EEG ---
Referring Physician: JOSIE WU EEG # [id number] TEST TYPE: ROUTINE PORTABLE INPATIENT REPORT: AN EEG USING THE INTERNATIONAL TEN-TWENTY SYSTEM OF ELECTRODE PLACEMENT WAS PERFORMED. The waking background is, at best, a 7 hertz theta frequency. There is medium to high amplitude delta activity seen over both hemispheres. No epileptiform features were seen. Photic stimulation was unremarkable. IMPRESSION: THIS IS AN ABNORMAL STUDY FOR THE FINDINGS OF DIFFUSE SLOWING CONSISTENT WITH A DIFFUSE ENCEPHALOPATHIC PROCESS. CLINICAL CORRELATION IS INDICATED. Edi Programmer: RITA Disease Intervention Specialist: EEG.JARETT PALMER
[2019-12-01 20:41] VITALS: BP 173/69; TEMP 98.3
[2019-12-01] MEDS: Insulin Glargine 6 UNITS in Pre-Filled Syringe 1 EACH SC SCH (20:50)
[2019-12-01] MEDS: Melatonin 3 MG TAB PO SCH (20:50)
--- NOTE | 2019-12-01 21:49 | DIS ---
DATE OF ADMISSION: 11/26/2019 DATE OF DISCHARGE: 12/01/2019 REASON FOR HOSPITALIZATION: Altered mental status. SIGNIFICANT FINDINGS: The patient was found to have symptomatic hypoglycemia and metabolic encephalopathy. PROCEDURES PERFORMED AND TREATMENTS RENDERED: 1. The patient's insulin regimen was adjusted and she received hemodialysis per Nephrology. The patient had no further episodes of confusion in acute care hospital and she returned to her baseline functional level of status. 2. The patient recommended safe for discharge by all specialists on 12/01/2019. CONDITION ON DISCHARGE: Stable. SPECIFIC INSTRUCTIONS FOR THE PATIENT/FAMILY: 1. The patient is recommended safe for discharge back to intermediate facility, where she is a chronic resident. 2. The patient is recommended to take all medications as directed, to be re-evaluated by admitting physician. 3. The patient is recommended to take insulin as directed, and if she is ever skipping a meal, she is recommended to skip her insulin and not take long-acting/short-acting insulin if she does not eat regularly. 4. The patient is recommended to follow up with primary care physician in the next 5 to 7 days. 5. The patient is recommended to follow up with Neurology in the outpatient setting in the upcoming weeks. 6. The patient is recommended to have hemodialysis as normally scheduled at her outpatient care. 7. The patient is recommended to return to acute care hospital immediately if signs or symptoms return, worsen, or any other new symptoms occur. DISCHARGE MEDICATIONS: Please see full discharge medication list for details. 1. Acetaminophen 650 mg p.o. q.4 hours p.r.n. pain or fever. 2. Acetazolamide 250 mg p.o. daily. 3. Amlodipine 10 mg p.o. daily. 4. Atropine sulfate to affected eye b.i.d. 5. Brimonidine tartrate 15 mL bottle 0.15% ophthalmic solution to affected eye t.i.d. 6. Dorzolamide 10 mL drops to affected eye t.i.d. 7. Gabapentin 300 mg one tablet p.o. b.i.d. 8. Glucagon subcutaneous injection q.5 minutes p.r.n. hypoglycemic episodes. 9. Hydralazine 25 mg one tablet p.o. t.i.d. 10. Hydroxyzine 50 mg p.o. 4 times per day p.r.n. anxiety or agitation. 11. Melatonin 10 mg tablet at bedtime p.r.n. insomnia. 12. Polyethylene glycol 17 g p.o. daily p.r.n. constipation. 13. Saccharomyces boulardii 250 mg p.o. daily. 14. Sertraline 100 mg p.o. daily. 15. Sevelamer carbonate 2400 mg p.o. t.i.d. with meals. 16. Timolol maleate 0.5% ophthalmic solution to affected eye t.i.d. 17. Humalog sliding scale coverage before meals and at bedtime. 18. Glargine 8 units subcutaneous injection b.i.d. 19. Keppra 500 mg p.o. b.i.d. 20. Reglan 10 mg p.o. t.i.d. p.r.n. severe nausea and vomiting. 21. Zofran 4 mg p.o. t.i.d. p.r.n. nausea and vomiting. 22. Protonix 40 mg one tablet p.o. q.a.m. 23. Patiromer calcium sorbitex 8.4 g powder p.o. daily. 24. Prednisone acetate ophthalmic drops 1% ophthalmic solution to affected eye t.i.d. HOSPITAL COURSE: Ms. Thao is a very pleasant 44-year-old female, who presented to [facility] on 11/26/2019 with altered mental status. The patient was transferred for hypoglycemic episode with blood sugar in the field at nursing facility, found to be in the 40s. The patient was altered and not answering questions or following commands at all. The patient received D50 in the field and was transferred to [facility] for further evaluation. When the patient arrived to [facility], blood sugars remained in the 200s and 100s, and the patient improved clinically. The patient had hemodialysis per Nephrology, please see full consultation notes and progress notes for details. With correction of blood sugar and hemodialysis, the patient's neurologic status returned to her baseline functional level status. The patient talking and answering questions appropriately. The patient was seen and evaluated by Neurology, please see full consultation notes, EEG reports and progress notes for details. EEG was found to be abnormal for slowing, though there was no overt seizure activity. The patient was continued on Keppra as per Neurology recommendations. The patient was recommended safe for discharge by all specialists on 12/01/2019 and she would be safe to return back to intermediate [facility], where she is a chronic resident. The patient recommended to take all medications as directed, to be re-evaluated by admitting physician at intermediate [facility]. The patient recommended to follow up with primary care physician in the next 5 to 7 days. The patient recommended to follow up with Nephrology for regularly scheduled hemodialysis Sunday, Sunday, Sunday. She has completed hemodialysis on 12/01/2019, prior to discharge. The patient recommended to follow up with Ophthalmology at her upcoming appointment. The patient recommended to follow up with Neurology in the outpatient setting in the upcoming weeks. The patient recommended to return to acute care hospital immediately if signs or symptoms return, worsen, or any other new symptoms occur. Greater than 38 minutes spent coordinating care and discharge process for this patient. Job ID: [id number]
== END 2019-12-01 22:15 | DRG 637 ==
LOC: ERS 07:53 → ERHOLD 10:32 → OBSVTOIN 10:32 → 2NO 17:06 → IMCU/EMU 19:49 → T4-B 11-27 12:53
PROVIDERS: ADMIT Internal Medicine; ATTEND Internal Medicine
PROC: 5A1D70Z Performance of Urinary Filtration, Intermittent, Less than 6 Hours Per Day (ICD-10-PCS; principal; 2019-11-27)
DX: E11.649 Type 2 diabetes mellitus with hypoglycemia without coma (principal); E43 Unspecified severe protein-calorie malnutrition; G93.41 Metabolic encephalopathy; I12.0 Hypertensive chronic kidney disease with stage 5 chronic kidney disease or end stage renal disease; E87.2 Acidosis; Z68.1 Body mass index [BMI] 19.9 or less, adult; E11.22 Type 2 diabetes mellitus with diabetic chronic kidney disease; N18.6 End stage renal disease; E87.5 Hyperkalemia; N25.81 Secondary hyperparathyroidism of renal origin; E11.42 Type 2 diabetes mellitus with diabetic polyneuropathy; E78.5 Hyperlipidemia, unspecified; E11.21 Type 2 diabetes mellitus with diabetic nephropathy; E11.319 Type 2 diabetes mellitus with unspecified diabetic retinopathy without macular edema; Z99.2 Dependence on renal dialysis; Z98.51 Tubal ligation status; F32.9 Major depressive disorder, single episode, unspecified; Z86.19 Personal history of other infectious and parasitic diseases; Z99.3 Dependence on wheelchair; Z74.01 Bed confinement status; D63.1 Anemia in chronic kidney disease; E11.43 Type 2 diabetes mellitus with diabetic autonomic (poly)neuropathy; K31.84 Gastroparesis
CPT/HCPCS: 36415; 36416; 51701; 70450; 71045; 80048; 80053; 80307; 82140; 82553; 83605; 83690; 84484; 85025; 87040; 87086; 93005; 95816; 95819; 96372; 96374; 96375; 99284; A4353; C9113; J0360; J1644; J1815; J1953; J2060; J2270; J2405

== ENCOUNTER 2020-05-21 17:03 | Emergency (ER) | payer OTHER ==
[2020-05-21] MEDS ORDERED: cloNIDine 0.1 MG TAB ONE (18:33)
== END 2020-05-21 22:18 ==
LOC: ERS 17:03
DX: T82.838A Hemorrhage due to vascular prosthetic devices, implants and grafts, initial encounter (principal); E10.40 Type 1 diabetes mellitus with diabetic neuropathy, unspecified; I12.0 Hypertensive chronic kidney disease with stage 5 chronic kidney disease or end stage renal disease; N18.6 End stage renal disease; G47.00 Insomnia, unspecified; E21.3 Hyperparathyroidism, unspecified; F41.9 Anxiety disorder, unspecified; F32.9 Major depressive disorder, single episode, unspecified; Z79.899 Other long term (current) drug therapy
CPT/HCPCS: 99284

== ENCOUNTER 2020-06-24 15:13 | Inpatient (IN) | payer OTHER ==
--- NOTE | 2020-06-24 16:23 | RAD ---
RADIOGRAPH CHEST 1 VIEW: DATE: 06/24/2020 TIME: 4:18 PM HISTORY: 44-year-old female with dyspnea COMPARISON: 11/26/2019 FINDINGS: Bilateral pleural effusions, right greater than left, new since prior study. New finding of diffuse interstitial densities concentrated centrally bilaterally, probably representi ng pulmonary interstitial edema. Focal airspace density in right midlung zone. New consolidation at medial base of left lower lobe. No pneumothorax. IMPRESSION: 1) bilateral pleural effusions, right greater than left. 2) airspace opacity in right midlung field: Pneumonia versus atelectasis. 3) new diffuse interstitial densities, probably representing pulmonary interstitial edema. 4) Consolidation in the medial left lower lobe: Atelectasis versus pneumonia.
[2020-06-24 16:26] LABS: #Basophils 0.1 thou/uL (0.0-0.2); #Eosinphils 0.6 thou/uL (0.0-0.7); #Lymphocytes 0.7 thou/uL (1.20-3.40); #Monocytes 0.2 thou/uL (0.11-0.59); #Neutrophils 4.2 thou/uL (1.40-6.50); %Basophils 1.1 % (0.0-1.0); %Eosinophils 10.9 % (0.0-10.0); %Lymphocytes 11.9 % (21.0-51.0); %Monocytes 3.9 % (0.0-10.0); %Neutrophils 72.2 % (42.0-75.0); Hemoglobin 9.4 g/dL (12.0-16.0); Mean Corpuscular HGB CONC 33.1 g/dL (32.0-36.0); Mean Corpuscular Hemoglobin 29.9 pg (27.0-31.0); Mean Corpuscular Volume 90.6 fL (78.0-98.0); Mean Platelet Volume 9.3 fL (7.4-10.4); Platelet Count 106 thou/uL (130-400); RBC Distribution Width 15.7 % (11.5-14.5); Red Blood Cell (RBC) Count 3.15 mill/uL (4.20-5.40); White Blood Cell (WBC) Count 5.8 thou/uL (4.8-10.8)
[2020-06-24 16:42] LABS: ALT (SGPT) Less than 7 U/L (8-55); AST (SGOT) 12 U/L (5-34); Albumin 4.1 g/dL (3.5-5.0); Alkaline Phosphatase 158 U/L (40-110); Anion Gap 30 mmol/L (10-20); BUN (Urea Nitrogen) 66 mg/dL (7.0-18.7); Bilirubin, Total 0.8 mg/dL (0.2-1.2); Calc. Creatinine Clearance 0 mL/min (70-130); Calcium 8.3 mg/dL (7.8-10.44); Carbon Dioxide 17 mmol/L (22-29); Chloride 97 mmol/L (98-107); Estimated GFR-MDRD 5; Globulin 2.8 g/dL (2.4-3.5); Glucose 138 mg/dL (70-105); Potassium 4.6 mmol/L (3.5-5.1); Protein, Total 6.9 g/dL (6.0-8.3); Sodium 139 mmol/L (136-145)
[2020-06-24] MEDS ORDERED: cefTRIAXone\\ROCEPHIN 2 GM VIAL ONE (17:48)
[2020-06-24] MEDS ORDERED: Aspirin Chewable 81 MG TAB ONE (17:48)
--- NOTE | 2020-06-24 18:06 | PDOC.FPRHP ---
- History of Present Illness Chief Complaint: Shortness of breath History of Present Illness: Pt is a 44 yo F with pmh of DMI, GERD, HTN, and ESRD who presents for SOB. She says she has felt SOB for 2 days. She says she was supposed to go to dialysis on Sunday but she missed it. She says her dialysis was changed recently from / / to . She went to dialysis today but felt too bad to receive it. She does still make some urine. She endorses orthopnea. She says she was recently tested for COVID and was found to be negative. She denies fever/chills, NVD. - Allergies/Adverse Reactions Allergies Allergy/AdvReac Type Severity Reaction Status Date / Time No Known Allergies Allergy Verified 06/25/20 03:07 - Home Medications Medication Instructions Recorded Confirmed Type Pantoprazole [Protonix] 40 mg PO DAILY 11/17/16 06/25/20 History hydrALAZINE HCl 25 tab PO DAILY 11/17/16 06/25/20 History Amlodipine [Norvasc] 10 mg PO DAILY #30 tab 05/25/17 06/25/20 Rx AcetaZOLAMIDE [Diamox] 250 tab PO DAILY 03/11/19 06/25/20 History Atropine Sulfate [Atropine 1% 1 drop L EYE BID 03/11/19 06/25/20 History Ophth Soln] Brimonidine Tartrate [Brimonidine 1 drop L EYE TID 03/11/19 06/25/20 History Tartrate 0.15% Ophth Soln] Dorzolamide HCl 1 drop L EYE TID 03/11/19 06/25/20 History Melatonin 10 mg PO HS 03/11/19 06/25/20 History Metoprolol Succinate 50 mg PO DAILY 03/11/19 06/25/20 History Timolol Maleate [Timoptic 0.5% 1 drop L EYE TID 03/11/19 06/25/20 History Ophth Soln] Gabapentin [Neurontin] 1 cap PO BID 03/28/19 06/25/20 History Ondansetron HCl [Zofran] 1 tab PO Q8HR PRN 03/28/19 06/25/20 History Sevelamer Carbonate [Renvela] 2.4 gm PO TID-WM 03/28/19 06/25/20 History Acetaminophen [Tylenol Regular 650 mg PO Q4H PRN tab 08/30/19 06/25/20 Rx Strength] HumaLOG [HumaLOG Vial] 0 unit SC AC PRN 11/10/19 06/25/20 History Patiromer Calcium Sorbitex 16.8 gm PO DAILY 11/10/19 06/25/20 History [Veltassa] hydrOXYzine HCl [Hydroxyzine HCl] 50 mg PO Q6HR PRN 11/10/19 06/25/20 History prednisoLONE Acetate [Econopred 1 drop L EYE TID 11/10/19 06/25/20 History Plus 1% Opth Susp] Calcium Acetate 667 mg PO TID-WM 06/24/20 06/25/20 History Lactobacillus [Floranex] 1 tab PO BID 06/24/20 06/25/20 History levETIRAcetam [Keppra] 1 tab PO BID 06/24/20 06/25/20 History Insulin Glargine [Lantus Vial] 12 units SC QAM 06/25/20 06/25/20 History Loperamide HCl [Imodium A-D] 1 tab PO DAILY PRN 06/25/20 06/25/20 History Metoclopramide HCl [Reglan] 5 mg PO Q8HR PRN 06/25/20 06/25/20 History - History PMHx: Kidney disease on HD, DM1, HTN, GERD PSHx: R eye surgery FHx: Dad with CAD and PPM Social: Lives at [facility], denies drug, etoh, tobacco use - Review of Systems General: denies: fever/chills, weight/appetite/sleep changes Eyes: denies: eye pain, vision changes ENT: denies: nasal congestion, rhinorrhea Respiratory: reports: cough, shortness of breath. denies: congestion Cardiovascular: reports: chest pain. denies: palpitation, edema Gastrointestinal: denies: nausea, vomiting, diarrhea Genitourinary: denies: incontinence, dysuria, polyuria Skin: denies: rashes, lesions Musculoskeletal: denies: pain, tenderness Neurological: denies: numbness, syncope - Vital signs BP: 147/70, MAP: 95, Pulse: 81, Resp: 17, Pain: 10, O2 sat: 93 on (Room Air), Time: 06/24/2020 15:20. wt 45.4 kg - Physical Exam Constitutional: NAD, awake, alert and oriented, well developed HEENT: normocephalic and atraumatic, PERRLA -HEENT: Blind, missing R eye, L eye with cataract and conjunctival injection Heart: RRR, normal S1/S2, no murmurs/rubs/gallops, pulses present Lungs: no respiratory distress, no wheezing -Lungs: Crackles in BLT bases Abdomen: soft, non-tender, bowel sounds present Musculoskeletal: normal structure, normal tone -Musculoskeletal: HD access in L arm, bruit with palpable thrill Neurological: no focal deficit, CN II-XII intact Skin: no rash/lesions, good turgor Heme/Lymphatic: no unusual bruising or bleeding, no purpura FMR H&P: Results - Labs Result Diagrams: 06/25/20 04:05 06/25/20 04:05 Lab results: WBC 5.8 thou/uL (4.8-10.8) 06/24/20 16:14 Hgb 9.4 g/dL (12.0-16.0) L 06/24/20 16:14 Hct 28.5 % (36.0-47.0) L 06/24/20 16:14 MCV 90.6 fL (78.0-98.0) 06/24/20 16:14 Plt Count 106 thou/uL (130-400) L 06/24/20 16:14 Neutrophils % 72.2 % (42.0-75.0) 06/24/20 16:14 Sodium 139 mmol/L (136-145) 06/24/20 16:14 Potassium 4.6 mmol/L (3.5-5.1) 06/24/20 16:14 Chloride 97 mmol/L (98-107) L 06/24/20 16:14 Carbon Dioxide 17 mmol/L (22-29) L 06/24/20 16:14 BUN 66 mg/dL (7.0-18.7) H 06/24/20 16:14 Creatinine 8.93 mg/dL (0.6-1.1) H 06/24/20 16:14 Glucose 138 mg/dL (70-105) H 06/24/20 16:14 Calcium 8.3 mg/dL (7.8-10.44) 06/24/20 16:14 Total Bilirubin 0.8 mg/dL (0.2-1.2) 06/24/20 16:14 AST 12 U/L (5-34) 06/24/20 16:14 ALT Less than 7 U/L (8-55) L 06/24/20 16:14 Alkaline Phosphatase 158 U/L (40-110) H 06/24/20 16:14 CK-MB (CK-2) 3.0 ng/mL (0-6.6) 06/24/20 16:14 B-Natriuretic Peptide 563.6 pg/mL (0-100) H 06/24/20 16:14 Serum Total Protein 6.9 g/dL (6.0-8.3) 06/24/20 16:14 Albumin 4.1 g/dL (3.5-5.0) 06/24/20 16:14 troponin 0.057 - EKG Interpretation EKG: NSR, no evidence of ischemia - Radiology Interpretation Chest x-ray Status: image reviewed by me, report reviewed by me (BLT opacities concerning for pulmonary edema, RLL consolidation) FMR H&P: A/P - Plan ESRD (on HD //) with uremia - Missed session likely cause of pulmonary edema/fluid overload - HD tonight - Consult nephrology Elevated troponin - near baseline, continue to monitor Possible PNA - Rocephin/Azithromycin DM2 - SSI w/ basal insulin Anemia - Appears to be 2/2 chronic disease but new low today - continue to monitor CAD -Home meds Anxiety/Depression - home meds, monitor Thrombocytopenia - plt 106, continue to monitor DVT ppx Heparin GI ppx pepcid Code: full L arm HD access LOS <48 hrs anticipated dc home FMR H&P: Upper Level - Plan Date/Time: 06/24/201803 IVince DO, have evaluated this patient and agree with findings/plan as outlined by journalism intern resident. Pertinent changes/additions are listed here. This is a 44 yo female with a pmh of ESRD on HD //, IDDM2, gastroparesis, HTN, Depression, anxiety, and CAD who presents to the ER with a cc of SOB. She states it has been going on for the last 3 days and has been progressive. She reports cough but it is not productive. She states she last had dialysis on Sunday. She went to dialysis today but was not feeling well and came to the ER. She denies fever, chills, nausea, vomiting, diarrhea, or headaches. She does report some mild chest pressure. Per chart review, she has been seen in the hospital multiple times for a similar picture. Objective: Vitals: BP 147/70, HR 81, RR 17, Temp 98.4, SpO2 100% 2L, Wt. 45 kg General: Frail and cachetic HEENT: AT/NC Cardio:2/6 systolic murmur, RRR Respiratory: Diffuse crackles throughout, fair air movement Extremities: No edema Skin: No rashes Abdomen: Soft non-tender, BS+ Neuro: AAOx3 A/P: ESRD on HD with missed dialysis and uremia -Admit to tele obs -Plan for dialysis tonight -Consult Nephro -Cr BUN 66, Cr 8.9, K 4.6 -BNP 500s suggestive of Fluid overload Elevated troponin -Appears at her baseline, will trend IDDM2 -Continue home regimen after med rec -Diabetic protocol per orders CAD -Continue home meds Anxiety/depression -Continue home meds Normocytic anemia likely 2/2 chronic disease -Will monitor, appears to be a new low Thrombocytopenia -Plt 106, will monitor Code: Full Prophylaxis: Heparin Family: None at bedside Fluids: SL Diet: Renal, high protein Disposition: DC in 1-2 days PCP: None, CC Addendum - Attending - Attending Attestation Date/Time: 06/24/201922 I personally evaluated the patient and discussed the management with Dr. Maldonado and Dr. Rodriguez I agree with the History, Examination, Assessment and Plan documented above with any addition or exceptions noted below. 44 yo female with dialysis dependant ESRD presents for missed HD and not feeling well. Reports general weakness, malaise, and fatigue. COVID testing in outside facility negative. Has not had HD in over 2 days. - Admit for urgent HD tonight. Labs and imaging associated with missed HD. Dr. Hannon to follow in AM. - Concern for consolidations on CXR. Inflammatory markers pending. If elevated continue antibx. If indeterminate markers and still not feeling well after HD, would consider CT chest to evaluate areas of consolidation. - Adjust home meds as needed. ABrZiyad
[2020-06-24 19:34] LABS: Troponin I 0.057 ng/mL (< 0.028)
[2020-06-24] MEDS ORDERED: Azithromycin 500 MG VIAL ONE (20:00)
[2020-06-24] MEDS ORDERED: Acetaminophen 325 MG TAB PO PRN (22:08)
[2020-06-24] MEDS ORDERED: Acetaminophen 650 MG Suppository PR PRN (22:08)
[2020-06-24] MEDS ORDERED: Calcium Carbonate 500 MG ChewTAB PO PRN (22:08)
[2020-06-24] MEDS ORDERED: Famotidine 20 MG TAB PO SCH (22:30)
[2020-06-24] MEDS ORDERED: Heparin 5,000 UNITS/ML VIAL SC SCH (22:30)
[2020-06-25] MEDS ORDERED: hydrALAZINE 20 MG/ML VIAL SLOW IVP SCH (00:45)
[2020-06-25] MEDS ORDERED: hydrALAZINE 25 MG TAB PO SCH (01:00)
[2020-06-25 05:29] LABS: Troponin I 0.088 ng/mL (< 0.028)
[2020-06-25 05:30] LABS: #Basophils 0.1 thou/uL (0.0-0.2); #Eosinphils 0.4 thou/uL (0.0-0.7); #Lymphocytes 0.5 thou/uL (1.20-3.40); #Monocytes 0.2 thou/uL (0.11-0.59); %Basophils 1.2 % (0.0-1.0); %Eosinophils 9.5 % (0.0-10.0); %Monocytes 5.6 % (0.0-10.0); %Neutrophils 71.6 % (42.0-75.0); Hemoglobin 9.7 g/dL (12.0-16.0); Mean Corpuscular HGB CONC 31.9 g/dL (32.0-36.0); Mean Platelet Volume 9.3 fL (7.4-10.4); Platelet Count 108 thou/uL (130-400); RBC Distribution Width 15.3 % (11.5-14.5); Red Blood Cell (RBC) Count 3.35 mill/uL (4.20-5.40); White Blood Cell (WBC) Count 4.2 thou/uL (4.8-10.8)
[2020-06-25 05:34] LABS: Anion Gap 23 mmol/L (10-20); BUN (Urea Nitrogen) 15 mg/dL (7.0-18.7); Calc. Creatinine Clearance 14 mL/min (70-130); Calcium 9.3 mg/dL (7.8-10.44); Carbon Dioxide 21 mmol/L (22-29); Chloride 101 mmol/L (98-107); Estimated GFR-MDRD 16; Glucose 91 mg/dL (70-105); Potassium 3.5 mmol/L (3.5-5.1); Sodium 141 mmol/L (136-145)
--- NOTE | 2020-06-25 06:07 | PDOC.FM ---
- Subjective Subjective: Patient resting in bed. Does not seem interested to answer questions. Feels better after dialysis. Endorses mild SOB and pleuritic chest pain. Denies other CP, GA, abdominal pain. - Objective MAR Reviewed: Yes Vital Signs & Weight: Vital Signs (12 hours) Temp Pulse Resp BP BP Pulse Ox 06/25/20 04:12 97.8 F 84 16 169/75 H 100 06/25/20 03:00 85 16 163/78 H 100 06/25/20 02:30 84 169/80 H 06/25/20 01:32 78 220/100 H 06/25/20 00:00 214/91 H 06/24/20 22:08 100 06/24/20 20:50 97.6 F 78 16 140/76 100 Weight Weight 39.9 kg Result Diagrams: 06/25/20 04:05 06/25/20 04:05 Phys Exam - Physical Examination Constitutional: NAD HEENT: sclera anicteric Neck: full ROM bilateral rackles appreciated in lower lung bases Cardiovascular: RRR, no significant murmur Gastrointestinal: soft, non-tender, positive bowel sounds Musculoskeletal: no edema, pulses present Neurological: moves all 4 limbs Psychiatric: A&O x 3 Skin: normal turgor Dx/Plan - Plan Plan: ESRD (on HD T//) with uremia - Missed session likely cause of pulmonary edema/fluid overload - bilateral pleural effusions on CXR on admission - s/p hemodialysis 06/24, Cr improved 8.93 > 3.24 - Nephrology on board, appreciate the recs Elevated troponin - near baseline, continue to monitor - likely 2/2 demand - CP is pleuritic, low likelihood that it is cardiogenic in nature Possible PNA - Rocephin/Azithromycin started 06/24 - afebrile, no leukocytosis - CXR showed airspace opacity in right midlung field, PNA vs atelectasis and consolidation in the medial left lower lobe, atelectasis versus PNA DM2 - SSI w/ basal insulin Anemia - Appears to be 2/2 chronic disease but new low today - continue to monitor HTN -on home Hydralazine 25mg TID and Metoprolol XL 50mg daily CAD -Home meds Anxiety/Depression - home meds, monitor Thrombocytopenia -likely 2/2 ESRD - plt 108, continue to monitor Hx of Seizures -patient is a poor historian. "Had a seizure once a long time ago" -on home Keppra DVT ppx Heparin GI ppx pepcid Code: full L arm HD access LOS <48 hrs anticipated dc home Spoke with pharmacy and called [facility] and confirmed that PCP is Dr. Nakita Boles-who is associated with [facility]. Called [facility] for transfer of care and they accepted. They will see patient starting on 06/26/2020.
[2020-06-25] MEDS ORDERED: EPOETIN ALFA-EPBX (ESRD) 4,000 UNIT/ML VIAL SC SCH (08:45)
[2020-06-25] MEDS ORDERED: Famotidine 20 MG TAB PO SCH (09:00)
[2020-06-25] MEDS ORDERED: Gabapentin 300 MG CAP PO SCH (09:00)
--- NOTE | 2020-06-25 09:27 | CON ---
DATE OF CONSULTATION: HISTORY OF PRESENT ILLNESS: Ms. Thao is a 44-year-old female who was admitted for shortness of breath. She was found to be volume overloaded. She underwent emergent hemodialysis yesterday and several liters of fluid was removed. She did miss her dialysis for several dialysis session due to noncompliance. Her breathing is a little better this morning. We are following up this patient for management of her ESRD as well as for maintenance hemodialysis. REVIEW OF SYSTEMS: Positive for shortness of breath. No chest pain. No syncopal episode. No productive cough. No fever or chills. Appetite and energy level are fair. No hematochezia. No dysuria. No abdominal pain. No joint pain. Decreased visual acuity. MEDICATIONS: Currently, the patient is on: 1. Acetazolamide 250 mg p.o. daily. 2. Atropine eye drop as directed. 3. Azithromycin 250 mg daily. 4. Calcium acetate 667 mg p.o. t.i.d. with meals. 5. Calcium carbonate 1000 mg p.o. q.6 hours. 6. Ceftriaxone 1 g IV daily. 7. Famotidine 20 mg daily. 8. Heparin 5000 units subcutaneous t.i.d. 9. Hydralazine 25 mg p.o. t.i.d. 10. Metoprolol succinate 50 mg daily. 11. Protonix 40 mg tablet once a day. 12. Sevelamer 800 mg 4 tablets t.i.d. with meals. PAST MEDICAL HISTORY: 1. History of hypertension. 2. The patient has ESRD-currently on maintenance hemodialysis 3 times a week. 3. Diabetic nephropathy, type 2 diabetes mellitus, history of noncompliance, history of diabetic gastroparesis, diabetic retinopathy, history of right eye blindness/decreased visual activity. PAST SURGICAL HISTORY: Status post right eye enucleation, status post AV fistula placement, status post bilateral tubal ligation, status post cuffed dialysis catheter placement. SOCIAL HISTORY: The patient is a retirement. Two children. No alcohol. No drug abuse. Status post multiple blood transfusion. 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 Education, 9th grade. ALLERGIES: NONE. TRAUMA: None. IMMUNIZATION: Up-to-date. HOSPITALIZATIONS: Please see past medical history. FAMILY HISTORY: No family history of ESRD. PHYSICAL EXAMINATION: VITAL SIGNS: Blood pressure 149/69, heart rate 84, respiratory rate 14, O2 saturation 100% on 2 L, temperature 97.2. GENERAL: The patient is awake, comfortable, supine, not in distress. SKIN: Adequate turgor. HEENT: Slightly pale conjunctivae. Anicteric sclerae. Positive for right eye blindness. NECK: No neck mass. No carotid bruits. No JVD. CHEST: No deformities. LUNGS: Clear breath sounds. No wheezing. No crackles. HEART: Normal sinus rhythm. No murmur. No gallops. No rubs. ABDOMEN: Globular, soft, nontender. No masses. Positive for bowel sounds. Negative for epigastric bruits. GROIN: No inguinal lymphadenopathy. No femoral artery bruits. GENITALIA: Deferred. EXTREMITIES: No edema. No deformities. NEUROLOGIC: Moving all extremities. Oriented to 3 spheres. No tremors. No asterixis. Decreased visual acuity. Right eye, the patient is blind. LABORATORY DATA: On June 25, 2020; white count 4.2, hemoglobin 9.7. Sodium 141, potassium 3.5, chloride 101, carbon dioxide 21, BUN is 15, creatinine 3.24, glucose 91, calcium 9.3. Troponin I of 0.088. Chest x-ray on June 24, 2020, shows bilateral pleural effusion with airspace opacity in right mid lung field, findings of interstitial edema, atelectasis versus pneumonia. ASSESSMENT AND PLAN: 1. Congestive heart failure-the patient underwent emergent hemodialysis yesterday with fluid removal. Breathing is much improved. 2. End-stage renal disease. We will continue current hemodialysis regimen of 3 times a week. For the moment, we will place her on Sunday, , and Sunday dialysis regimen. 3. Anemia. We will restart weekly Epogen with this patient. 4. Pneumonia versus atelectasis-I think this is less likely from pneumonia. However, the patient is on empiric IV antibiotics. 5. Agree with current management. Recheck CBC and basic metabolic panel in a.m. Job ID: [id number]
[2020-06-25] MEDS: Calcium Acetate 667 MG CAP PO SCH ×4 (09:30→18:00)
[2020-06-25] MEDS: Sevelamer Carbonate 800 MG TAB PO SCH ×4 (09:30→18:00)
[2020-06-25] MEDS: Atropine Sulfate 1% Ophth Soln 5 ml Bottle L EYE SCH ×2 (09:31→20:06)
[2020-06-25] MEDS: AcetaZOLAMIDE 250 MG TAB PO SCH (09:31)
[2020-06-25] MEDS: hydrALAZINE 25 MG TAB PO SCH ×3 (09:32→20:07)
[2020-06-25] MEDS: Heparin 5,000 UNITS/ML VIAL SC SCH ×4 (09:32→20:05)
[2020-06-25] MEDS: levETIRAcetam 500 MG TAB PO SCH ×2 (09:32→20:08)
[2020-06-25] MEDS ORDERED: Ondansetron HCl/PF 8 MG in Sodium Chloride 0.9% 50 ML IVPB PRN (11:10)
[2020-06-25 12:13] LABS: SARS-CoV-2 MS2 Positive; SARS-CoV-2 N Gene Negative; SARS-CoV-2 S Gene Negative; SARS-CoV-2 by NAA Not Detected (NotDetected); SARS-CoV-2 orf1ab Negative
[2020-06-25] MEDS ORDERED: hydrALAZINE 20 MG/ML VIAL SLOW IVP PRN (12:46)
[2020-06-25] MEDS ORDERED: Metoclopramide HCl 10 MG TAB PO PRN (12:59)
[2020-06-25] MEDS ORDERED: Amlodipine 10 MG TAB PO SCH (14:00)
[2020-06-25] MEDS: prednisoLONE 1% Ophth Susp 5 ml Bottle L EYE SCH ×2 (16:27→20:08)
[2020-06-25] MEDS ORDERED: cefTRIAXone\\ROCEPHIN 1 GM in Sodium Chloride 0.9% 100 ML IVPB SCH (18:00)
[2020-06-25] MEDS ORDERED: Azithromycin 500 MG in Sodium Chloride 0.9% 250 ML 250 ML IVPB SCH (20:00)
[2020-06-25] MEDS: Lactinex Tablet PO SCH (20:07)
[2020-06-25] MEDS: Melatonin 3 MG TAB PO SCH (20:08)
[2020-06-25] MEDS: Timolol 0.5% Ophth Soln 5 ml Bottle L EYE SCH (20:09)
[2020-06-26] MEDS ORDERED: Ondansetron PF 4 MG/2 ML Vial SLOW IVP PRN (00:14)
[2020-06-26 04:07] LABS: #Basophils 0.1 thou/uL (0.0-0.2); #Eosinphils 0.2 thou/uL (0.0-0.7); #Lymphocytes 0.5 thou/uL (1.20-3.40); #Monocytes 0.2 thou/uL (0.11-0.59); #Neutrophils 4.2 thou/uL (1.40-6.50); %Basophils 1.2 % (0.0-1.0); %Eosinophils 4.1 % (0.0-10.0); %Monocytes 3.7 % (0.0-10.0); %Neutrophils 80.9 % (42.0-75.0); Mean Corpuscular HGB CONC 30.8 g/dL (32.0-36.0); Mean Corpuscular Hemoglobin 29.8 pg (27.0-31.0); Mean Corpuscular Volume 96.8 fL (78.0-98.0); Mean Platelet Volume 10.1 fL (7.4-10.4); Platelet Count 79 thou/uL (130-400); Red Blood Cell (RBC) Count 3.36 mill/uL (4.20-5.40); White Blood Cell (WBC) Count 5.2 thou/uL (4.8-10.8)
[2020-06-26 04:21] LABS: BUN (Urea Nitrogen) 30 mg/dL (7.0-18.7); Calc. Creatinine Clearance 9 mL/min (70-130); Calcium 8.8 mg/dL (7.8-10.44); Carbon Dioxide Less than 8 mmol/L (22-29); Chloride 100 mmol/L (98-107); Estimated GFR-MDRD 10; Glucose 140 mg/dL (70-105); Potassium 4.2 mmol/L (3.5-5.1); Sodium 139 mmol/L (136-145)
--- NOTE | 2020-06-26 05:51 | PRG ---
DATE OF SERVICE: 06/25/2020 ADDENDUM: This is an addendum to the note of Dr. Susy Mccray. Ms. Thao is a 44-year-old female, on dialysis. She missed an episode of dialysis this week and presented to the ER late yesterday short of breath with some pulmonary congestion. This is read as possible pneumonia, but there was likely a contribution of pulmonary edema from her missing dialysis. In the event, she did feel better after a session of dialysis. She seems to have a habit of often missing her sessions. However, currently she is awake, alert, talking on the phone and in absolutely no distress. Her CBC is 5800, her hemoglobin is 9.4, and her hematocrit is 28.5. Chemistry; sodium 141, potassium 3.5, chloride 101, bicarb 21, BUN 15, and creatinine 3.24. She is also being treated for pneumonia, but clinically really does not seem to have this. However, given her multiple comorbidities and her x-ray reading, we will continue for now with broad-spectrum antibiotics. Likely ready for discharge in a day or two. Job ID: [id number]
[2020-06-26] MEDS: Sevelamer Carbonate 800 MG TAB PO SCH ×3 (08:52→17:25)
[2020-06-26] MEDS: Calcium Acetate 667 MG CAP PO SCH ×3 (08:53→17:25)
[2020-06-26] MEDS: hydrALAZINE 25 MG TAB PO SCH ×2 (08:58→20:48)
[2020-06-26] MEDS: Amlodipine 10 MG TAB PO SCH (08:58)
[2020-06-26] MEDS ORDERED: PATIROMER CALCIUM SORBITEX 16.8 GM PO SCH (09:00)
[2020-06-26] MEDS: Insulin Glargine 6 UNITS in Pre-Filled Syringe 1 EACH SC SCH (09:55)
[2020-06-26] MEDS: Timolol 0.5% Ophth Soln 5 ml Bottle L EYE SCH ×2 (09:57→20:50)
[2020-06-26] MEDS: Atropine Sulfate 1% Ophth Soln 5 ml Bottle L EYE SCH ×2 (09:57→20:48)
[2020-06-26] MEDS: prednisoLONE 1% Ophth Susp 5 ml Bottle L EYE SCH ×3 (09:57→20:50)
[2020-06-26] MEDS: AcetaZOLAMIDE 250 MG TAB PO SCH (10:01)
[2020-06-26] MEDS: Lactinex Tablet PO SCH ×2 (10:01→20:49)
[2020-06-26] MEDS: Heparin 5,000 UNITS/ML VIAL SC SCH ×3 (10:02→20:48)
--- NOTE | 2020-06-26 10:41 | PRG ---
DATE OF SERVICE: 06/26/2020 SUBJECTIVE: Ms. Thao is a 44-year-old female, who was admitted for shortness of breath/CHF. Did miss her dialysis. Also has a ? Of pneumonia and currently being treated empirically with IV antibiotics. This morning, she is still feeling tired. Complaining of some diarrhea. Her bicarb was noted to be severely decreased. She was scheduled for dialysis today. This will help with the metabolic acidosis. The patient denies any chest pain or shortness of breath. OBJECTIVE: VITAL SIGNS: Blood pressure 101/58, heart rate 64, respiratory rate 20, temperature 97.6, O2 saturation 99%. GENERAL: The patient is awake, comfortable, not in overt distress. SKIN: Adequate turgor. HEENT: Pinkish conjunctivae. Anicteric sclerae. NECK: No neck mass. No carotid bruits. No JVD. CHEST: No deformities. LUNGS: Clear breath sounds. HEART: Normal sinus rhythm. No murmur. No gallops. No rubs. ABDOMEN: Globular, soft, nontender. No masses. EXTREMITIES: No edema. No deformities. MEDICATIONS: Medications of June 26, 2020, was reviewed. LABORATORY DATA: Laboratories of June 26, 2020; white count 5.2, hemoglobin 10. Sodium 139, potassium 4.2, chloride 100, carbon dioxide less than 8, BUN 30, creatinine 4.91, glucose 140, calcium 8.8. ASSESSMENT AND PLAN: 1. End-stage renal disease/metabolic acidosis-we will do hemodialysis this a.m. with this patient. Fluid removal only as tolerated. Hopefully, with the dialysis, we will improve this metabolic acidosis. 2. Diarrhea, chronic in nature. This could also be contributing to the metabolic acidosis. 3. Congestive heart failure. Fluid removal with hemodialysis. 4. Recheck basic and CBC in a.m. Job ID: [id number]
[2020-06-26] MEDS: levETIRAcetam 500 MG TAB PO SCH ×2 (15:26→20:49)
[2020-06-26] MEDS: Gabapentin 300 MG CAP PO SCH (15:26)
[2020-06-26 16:19] LABS: Anion Gap 25 mmol/L (10-20); BUN (Urea Nitrogen) 5 mg/dL (7.0-18.7); Calc. Creatinine Clearance 29 mL/min (70-130); Carbon Dioxide 19 mmol/L (22-29); Chloride 100 mmol/L (98-107); Estimated GFR-MDRD 37; Glucose 97 mg/dL (70-105); Potassium 3.8 mmol/L (3.5-5.1); Sodium 140 mmol/L (136-145)
[2020-06-26] MEDS ORDERED: hydrALAZINE 20 MG/ML VIAL SLOW IVP PRN (16:52)
[2020-06-26] MEDS ORDERED: Metoclopramide HCl 10 MG/2 ML VIAL IVP PRN (16:52)
[2020-06-26] MEDS: Dextrose 5 % And 0.9 % NaCl 1,000 ML IV SCH (18:22)
[2020-06-26] MEDS: Melatonin 3 MG TAB PO SCH (20:50)
--- NOTE | 2020-06-26 22:24 | PDOC.HOSPP ---
- Subjective Encounter Date: 06/26/20 Encounter Time: 10:00 Subjective: overnight, no hemodialysis. This morning, drowsy, refusing all medications. Pending hemodilaysis - Objective Vital Signs & Weight: Vital Signs (12 hours) Temp Pulse Resp BP BP Pulse Ox 06/26/20 20:50 74 158/71 H 06/26/20 20:48 74 158/71 H 06/26/20 19:32 99.0 F 74 18 158/71 H 99 06/26/20 17:36 73 18 155/66 H 99 06/26/20 16:40 204/85 H 06/26/20 15:12 97.8 F 72 18 178/84 H 100 06/26/20 12:30 68 18 138/65 96 Weight Admit Weight 87 lb Weight 87 lb 4.8 oz I&O: 06/25/20 06/26/20 06/27/20 06:59 06:59 06:59 Intake Total 100 490 200 Balance 100 490 200 Result Diagrams: 06/26/20 03:34 06/26/20 15:46 Additional Labs: Accuchecks 06/26/20 06/26/20 06/26/20 16:16 10:41 05:55 POC Glucose 107 182 H 155 H 06/25/20 21:02 POC Glucose 127 H Hospitalist ROS - Review of Systems ROS unobtainable: due to mental status (drowsy, not answering most questions) Eyes: denies: vision change (patient states she's legally blind) Respiratory: denies: shortness of breath Cardiovascular: denies: chest pain - Medication Medications: Active Medications Generic Name Dose Route Start Last Admin Trade Name Vineet PRN Reason Stop Dose Admin Acetazolamide 250 mg 06/25/20 09:00 06/26/20 10:01 Diamox PO Not Given DAILY [facility] Acidophilus 1 tab 06/25/20 21:00 06/26/20 20:49 Floranex PO Not Given BID [facility] Amlodipine Besylate 10 mg 06/26/20 09:00 06/26/20 08:58 Norvasc PO Not Given DAILY ME[facility] Atropine Sulfate 1 drop 06/25/20 09:00 06/26/20 20:48 Atropine 1% Ophth Soln L EYE Not Given BID [facility] Calcium Acetate 667 mg 06/25/20 08:00 06/26/20 17:25 Phoslo PO Not Given TID-[facility] Epoetin Rafat-epbx 7,500 unit 06/25/20 08:45 06/25/20 09:39 Retacrit SC 7,500 unit Q7D [facility] Administration Gabapentin 300 mg 06/26/20 09:00 06/26/20 15:26 Neurontin PO Not Given DAILY [facility] Heparin Sodium (Porcine) 5,000 units 06/25/20 09:00 06/26/20 20:48 Heparin SC Not Given TID [facility] Hydralazine HCl 25 mg 06/25/20 21:00 06/26/20 20:48 Apresoline PO Not Given BID [facility] Insulin Glargine 6 units/ 0.06 mls @ 0 mls/hr 06/26/20 09:00 06/26/20 09:55 Miscellaneous Medication SC Not Given QAM [facility] Levetiracetam 500 mg/ Device 100 mls @ 200 mls/hr 06/26/20 21:00 06/26/20 21: 10 IVPB 100 mls BID ME[facility] Administration Dextrose/Sodium Chloride 1,000 mls @ 60 mls/hr 06/26/20 18:00 06/26/20 18:22 D5 0.9% Ns IV 1,000 mls .[id number] [facility] Administration Levetiracetam 500 mg 06/25/20 09:00 06/26/20 20:49 Keppra PO Not Given BID [facility] Melatonin 9 mg 06/25/20 21:00 06/26/20 20:50 Melatonin PO Not Given HS [facility] Metoprolol Succinate 50 mg 06/25/20 09:00 06/26/20 08:59 Toprol Xl PO Not Given DAILY [facility] Ondansetron HCl 8 mg 06/26/20 00:14 06/26/20 00:20 Zofran SLOW IVP 8 mg Q8H PRN Administration Nausea/Vomiting Pantoprazole Sodium 40 mg 06/25/20 09:00 06/26/20 15:26 Protonix PO Not Given DAILY [facility] Prednisolone Acetate 1 drop 06/25/20 15:00 06/26/20 20:50 Econopred Plus 1% Opth Susp L EYE Not Given TID [facility] Sertraline HCl 50 mg 06/25/20 09:00 06/26/20 15:26 Zoloft PO Not Given [facility] Sevelamer Carbonate 2,400 mg 06/25/20 08:00 06/26/20 17:25 Renvela PO Not Given TID-[facility] Timolol Maleate 1 drop 06/25/20 21:00 06/26/20 20:50 Timoptic 0.5% Ophth Soln L EYE Not Given BID [facility] - Exam General Appearance: NAD General - other findings: drowsy Eye - other findings: shut right eye, left eye with cataracts Heart: RRR, no murmur, no gallops, no rubs Respiratory: CTAB, no wheezes, no rales, no ronchi Gastrointestinal: soft, non-tender, non-distended Extremities: 1+ LE edema Hosp A/P - Plan #troponinemia #elevated BNP #HTN emergency -likely demand ishcemia in context hypervolemia, resulting in elevated blood pressure and ventricular stretch causing elevated BNP -pending HD -resumed home bp regimen #Severe metabolic acidosis #metabolic encephalopathy -due to ESRD; pending hemodilaysis ELOS: 1-2 nights GI PPx: no Ix DVT PPx: heparin
[2020-06-27 08:32] LABS: Anion Gap 27 mmol/L (10-20); BUN (Urea Nitrogen) 14 mg/dL (7.0-18.7); Calc. Creatinine Clearance 14 mL/min (70-130); Calcium 8.3 mg/dL (7.8-10.44); Carbon Dioxide 15 mmol/L (22-29); Chloride 101 mmol/L (98-107); Estimated GFR-MDRD 16; Glucose 207 mg/dL (70-105); Potassium 3.9 mmol/L (3.5-5.1); Sodium 139 mmol/L (136-145)
[2020-06-27 08:43] LABS: #Basophils 0.1 thou/uL (0.0-0.2); #Eosinphils 0.2 thou/uL (0.0-0.7); #Lymphocytes 0.9 thou/uL (1.20-3.40); #Monocytes 0.3 thou/uL (0.11-0.59); #Neutrophils 3.1 thou/uL (1.40-6.50); %Basophils 1.8 % (0.0-1.0); %Eosinophils 3.9 % (0.0-10.0); %Neutrophils 68.4 % (42.0-75.0); Hemoglobin 10.2 g/dL (12.0-16.0); Mean Corpuscular HGB CONC 31.8 g/dL (32.0-36.0); Mean Corpuscular Hemoglobin 29.5 pg (27.0-31.0); Mean Corpuscular Volume 92.8 fL (78.0-98.0); Mean Platelet Volume 9.6 fL (7.4-10.4); Platelet Count 112 thou/uL (130-400); RBC Distribution Width 14.9 % (11.5-14.5); Red Blood Cell (RBC) Count 3.46 mill/uL (4.20-5.40); White Blood Cell (WBC) Count 4.5 thou/uL (4.8-10.8)
[2020-06-27] MEDS: Amlodipine 10 MG TAB PO SCH (09:16)
[2020-06-27] MEDS: hydrALAZINE 25 MG TAB PO SCH ×2 (09:16→20:29)
[2020-06-27] MEDS: Sevelamer Carbonate 800 MG TAB PO SCH ×3 (09:32→17:48)
[2020-06-27] MEDS: Atropine Sulfate 1% Ophth Soln 5 ml Bottle L EYE SCH ×2 (09:32→20:33)
[2020-06-27] MEDS: Calcium Acetate 667 MG CAP PO SCH ×3 (09:32→16:57)
[2020-06-27] MEDS: AcetaZOLAMIDE 250 MG TAB PO SCH (09:32)
[2020-06-27] MEDS: Gabapentin 300 MG CAP PO SCH (09:33)
[2020-06-27] MEDS: levETIRAcetam 500 MG TAB PO SCH ×2 (09:33→20:33)
[2020-06-27] MEDS: Lactinex Tablet PO SCH ×2 (09:33→20:33)
[2020-06-27] MEDS: Heparin 5,000 UNITS/ML VIAL SC SCH ×3 (09:33→20:33)
[2020-06-27] MEDS ORDERED: Losartan 25 MG TAB PO SCH (09:45)
--- NOTE | 2020-06-27 09:47 | PRG ---
DATE OF SERVICE: 06/27/2020 SUBJECTIVE: Ms. Thao is a 44-year-old female with ESRD-on maintenance hemodialysis and complaining of back pain today. We will give a one time dose tramadol 50 mg tablet once a day. She did undergo hemodialysis. The metabolic acidosis is actually much improved from 8 to most recent value of 15. The patient voices no other complaints. OBJECTIVE: VITAL SIGNS: Blood pressure is 180/71, heart rate 77, respiratory rate 18, temperature 98.8, O2 saturations 100%. GENERAL: Noted to be awake, not in cardiorespiratory distress. SKIN: Adequate turgor. HEENT: She has pinkish conjunctivae. Anicteric sclerae. No neck mass. No carotid bruits. No JVD. The patient is blind in the right eye. LUNGS: Clear breath sounds. No wheezing. No crackles. HEART: Normal sinus rhythm. No murmur. No gallops. No rubs. ABDOMEN: Globular, soft, nontender. No masses. EXTREMITIES: No edema. No deformities. MEDICATIONS: Medications of June 27, 2020, reviewed. LABORATORY DATA: Laboratories of June 27, 2020; white count 4.5, hemoglobin 10.2. Sodium 139, potassium 3.9, chloride 101, carbon dioxide 15, BUN 14, creatinine 3.25, glucose 207, calcium 8.3. ASSESSMENT AND PLAN: 1. End-stage renal disease, stable, tolerating current hemodialysis regimen. Fluid removal as tolerated. 2. Chronic low back pain-tramadol 50 mg tab x1 dose. 3. Chronic anemia, currently on Epogen 7500 units subcu q.7 days. 4. Agree with current management. Job ID: [id number]
[2020-06-27] MEDS: traMADol HCl 50 MG TAB PO SCH ×2 (10:41→11:14)
[2020-06-27] MEDS: prednisoLONE 1% Ophth Susp 5 ml Bottle L EYE SCH ×3 (10:42→20:34)
[2020-06-27] MEDS: Timolol 0.5% Ophth Soln 5 ml Bottle L EYE SCH ×2 (10:42→20:34)
[2020-06-27] MEDS: Insulin Glargine 6 UNITS in Pre-Filled Syringe 1 EACH SC SCH ×2 (10:45→20:33)
[2020-06-27] MEDS: Dextrose 5 % And 0.9 % NaCl 1,000 ML IV SCH (10:49)
[2020-06-27] MEDS ORDERED: hydrALAZINE 20 MG/ML VIAL SLOW IVP SCH (13:30)
--- NOTE | 2020-06-27 16:30 | PDOC.HOSPP ---
- Subjective Encounter Date: 06/27/20 Encounter Time: 10:00 Subjective: overnight, continues to refuse medications because she "doesn't want to be nauseated." Determined to not take medications even though offered other solutions for nausea. called family members and requested they speak with patient in regards to adherence - Objective Vital Signs & Weight: Vital Signs (12 hours) Temp Pulse Resp BP Pulse Ox 06/27/20 11:31 98.8 F 75 16 196/91 H 100 06/27/20 09:08 98.8 F 77 18 180/71 H 100 06/27/20 05:30 99 Weight Admit Weight 87 lb Weight 84 lb 8 oz I&O: 06/26/20 06/27/20 06/28/20 06:59 06:59 06:59 Intake Total 490 920 Balance 490 920 Result Diagrams: 06/27/20 07:54 06/27/20 07:54 Additional Labs: Accuchecks 06/27/20 06/26/20 06/26/20 11:05 20:58 16:16 POC Glucose 261 H 161 H 107 06/26/20 10:41 POC Glucose 182 H Hospitalist ROS - Review of Systems Constitutional: denies: fever, chills Respiratory: denies: cough, dry, shortness of breath Cardiovascular: denies: chest pain, palpitations, orthopnea Gastrointestinal: reports: nausea. denies: vomiting, abdominal pain, diarrhea, constipation Genitourinary: denies: dysuria, frequency, hematuria - Medication Medications: Active Medications Generic Name Dose Route Start Last Admin Trade Name Freq PRN Reason Stop Dose Admin Acetazolamide 250 mg 06/25/20 09:00 06/27/20 09:32 Diamox PO Not Given DAILY [facility] Acidophilus 1 tab 06/25/20 21:00 06/27/20 09:33 Floranex PO Not Given BID [facility] Amlodipine Besylate 10 mg 06/26/20 09:00 06/27/20 09:16 Norvasc PO 10 mg DAILY [facility] Administration Atropine Sulfate 1 drop 06/25/20 09:00 06/27/20 09:32 Atropine 1% Ophth Soln L EYE Not Given BID [facility] Calcium Acetate 667 mg 06/25/20 08:00 06/27/20 13:19 Phoslo PO Not Given TID-[facility] Epoetin Rafat-epbx 7,500 unit 06/25/20 08:45 06/25/20 09:39 Retacrit SC 7,500 unit Q7D [facility] Administration Gabapentin 300 mg 06/26/20 09:00 06/27/20 09:33 Neurontin PO Not Given DAILY [facility] Heparin Sodium (Porcine) 5,000 units 06/25/20 09:00 06/27/20 13:19 Heparin SC Not Given TID [facility] Hydralazine HCl 25 mg 06/25/20 21:00 06/27/20 09:16 Apresoline PO 25 mg BID [facility] Administration Insulin Glargine 6 units/ 0.06 mls @ 0 mls/hr 06/26/20 09:00 06/27/20 10:45 Miscellaneous Medication SC Not Given QAM [facility] Levetiracetam 500 mg/ Device 100 mls @ 200 mls/hr 06/26/20 21:00 06/27/20 10: 34 IVPB 100 mls BID [facility] Administration Dextrose/Sodium Chloride 1,000 mls @ 60 mls/hr 06/26/20 18:00 06/27/20 10:49 D5 0.9% Ns IV 1,000 mls .[id number] [facility] Administration Levetiracetam 500 mg 06/25/20 09:00 06/27/20 09:33 Keppra PO Not Given BID [facility] Melatonin 9 mg 06/25/20 21:00 06/26/20 20:50 Melatonin PO Not Given HS [facility] Metoprolol Succinate 50 mg 06/25/20 09:00 06/27/20 09:16 Toprol Xl PO 50 mg DAILY [facility] Administration Ondansetron HCl 8 mg 06/26/20 00:14 06/26/20 00:20 Zofran SLOW IVP 8 mg Q8H PRN Administration Nausea/Vomiting Pantoprazole Sodium 40 mg 06/25/20 09:00 06/27/20 09:34 Protonix PO Not Given DAILY [facility] Prednisolone Acetate 1 drop 06/25/20 15:00 06/27/20 10:42 Econopred Plus 1% Opth Susp L EYE Not Given TID [facility] Sertraline HCl 50 mg 06/25/20 09:00 06/27/20 09:34 Zoloft PO Not Given QAM [facility] Sevelamer Carbonate 2,400 mg 06/25/20 08:00 06/27/20 13:19 Renvela PO Not Given TID-[facility] Timolol Maleate 1 drop 06/25/20 21:00 06/27/20 10:42 Timoptic 0.5% Ophth Soln L EYE Not Given BID [facility] - Exam General Appearance: NAD, awake alert Heart: RRR, no murmur, no gallops, no rubs Respiratory: CTAB, no wheezes, no rales, no ronchi Gastrointestinal: soft, non-tender, non-distended, normal bowel sounds Extremities: no edema Psychiatric: normal affect, normal behavior, A&O x 3 Hosp A/P - Plan #troponinemia #elevated BNP #HTN emergency -likely demand ishcemia in context hypervolemia, resulting in elevated blood pressure and ventricular stretch causing elevated BNP -resumed home bp regimen but patient refusing all medications #Severe metabolic acidosis (improved after HD) #metabolic encephalopathy (improved) -continue HD as per nephrology ELOS: 1-2 nights GI PPx: no Ix DVT PPx: heparin Full code as per daughter and surrogate decision maker
[2020-06-27] MEDS: pyridOXINE 50 MG (B6) TAB PO SCH ×2 (17:06→20:34)
[2020-06-27] MEDS ORDERED: HumaLOG 300 UNITS/3 ML VIAL SC PRN (19:21)
[2020-06-27] MEDS: Melatonin 3 MG TAB PO SCH (20:34)
[2020-06-28] MEDS: Dextrose 5 % And 0.9 % NaCl 1,000 ML IV SCH (03:27)
[2020-06-28 05:04] LABS: Phosphorus 4.5 mg/dL (2.3-4.7)
[2020-06-28 05:19] LABS: Anion Gap 21 mmol/L (10-20); Carbon Dioxide 19 mmol/L (22-29); Chloride 104 mmol/L (98-107); Potassium 3.7 mmol/L (3.5-5.1); Sodium 140 mmol/L (136-145)
[2020-06-28 05:20] LABS: BUN (Urea Nitrogen) 21 mg/dL (7.0-18.7); Calc. Creatinine Clearance 10 mL/min (70-130); Calcium 8.4 mg/dL (7.8-10.44); Estimated GFR-MDRD 10; Glucose 366 mg/dL (70-105); Magnesium 2.1 mg/dL (1.6-2.6)
--- NOTE | 2020-06-28 09:03 | PDOC.HOSPP ---
- Objective Vital Signs & Weight: Vital Signs (12 hours) Temp Pulse Resp BP Pulse Ox 06/28/20 07:30 97.6 F 70 14 191/86 H 100 06/28/20 03:25 98.2 F 72 20 172/74 H 100 Weight Admit Weight 87 lb Weight 88 lb I&O: 06/27/20 06/28/20 06/29/20 06:59 06:59 06:59 Intake Total 920 1640 Output Total 0 Balance 920 1640 Result Diagrams: 06/27/20 07:54 06/28/20 03:46 Additional Labs: Accuchecks 06/28/20 06/27/20 06/27/20 05:29 20:58 17:11 POC Glucose 341 H 294 H 275 H 06/27/20 11:05 POC Glucose 261 H Hospitalist ROS - Medication Medications: Active Medications Generic Name Dose Route Start Last Admin Trade Name Freq PRN Reason Stop Dose Admin Acetazolamide 250 mg 06/25/20 09:00 06/27/20 09:32 Diamox PO Not Given DAILY [facility] Acidophilus 1 tab 06/25/20 21:00 06/27/20 20:33 Floranex PO Not Given BID [facility] Amlodipine Besylate 10 mg 06/26/20 09:00 06/27/20 09:16 Norvasc PO 10 mg DAILY [facility] Administration Atropine Sulfate 1 drop 06/25/20 09:00 06/27/20 20:33 Atropine 1% Ophth Soln L EYE Not Given BID [facility] Calcium Acetate 667 mg 06/25/20 08:00 06/27/20 16:57 Phoslo PO Not Given TID-[facility] Epoetin Rafat-epbx 7,500 unit 06/25/20 08:45 06/25/20 09:39 Retacrit SC 7,500 unit Q7D [facility] Administration Gabapentin 300 mg 06/26/20 09:00 06/27/20 09:33 Neurontin PO Not Given DAILY [facility] Heparin Sodium (Porcine) 5,000 units 06/25/20 09:00 06/27/20 20:33 Heparin SC Not Given TID [facility] Hydralazine HCl 25 mg 06/25/20 21:00 06/27/20 20:29 Apresoline PO 25 mg BID [facility] Administration Levetiracetam 500 mg/ Device 100 mls @ 200 mls/hr 06/26/20 21:00 06/27/20 20: 28 IVPB 100 mls BID [facility] Administration Dextrose/Sodium Chloride 1,000 mls @ 60 mls/hr 06/26/20 18:00 06/28/20 03:27 D5 0.9% Ns IV 1,000 mls .[id number] [facility] Administration Insulin Glargine 6 units/ 0.06 mls @ 0 mls/hr 06/27/20 21:00 06/27/20 20:33 Miscellaneous Medication SC Not Given HS [facility] Levetiracetam 500 mg 06/25/20 09:00 06/27/20 20:33 Keppra PO Not Given BID [facility] Melatonin 9 mg 06/25/20 21:00 06/27/20 20:34 Melatonin PO Not Given HS [facility] Metoprolol Succinate 50 mg 06/25/20 09:00 06/27/20 09:16 Toprol Xl PO 50 mg DAILY [facility] Administration Ondansetron HCl 8 mg 06/26/20 00:14 06/26/20 00:20 Zofran SLOW IVP 8 mg Q8H PRN Administration Nausea/Vomiting Pantoprazole Sodium 40 mg 06/25/20 09:00 06/27/20 09:34 Protonix PO Not Given DAILY [facility] Prednisolone Acetate 1 drop 06/25/20 15:00 06/27/20 20:34 Econopred Plus 1% Opth Susp L EYE Not Given TID [facility] Pyridoxine HCl 25 mg 06/27/20 17:00 06/27/20 20:34 Vitamin B 6 PO Not Given QID [facility] Sertraline HCl 50 mg 06/25/20 09:00 06/27/20 09:34 Zoloft PO Not Given QAM [facility] Sevelamer Carbonate 2,400 mg 06/25/20 08:00 06/27/20 17:48 Renvela PO Not Given TID-[facility] Timolol Maleate 1 drop 06/25/20 21:00 06/27/20 20:34 Timoptic 0.5% Ophth Soln L EYE Not Given BID [facility] Hosp A/P - Plan #troponinemia #elevated BNP #HTN emergency -likely demand ishcemia in context hypervolemia, resulting in elevated blood pressure and ventricular stretch causing elevated BNP -resumed home bp regimen but patient refusing all medications #Severe metabolic acidosis (improved after HD) #metabolic encephalopathy (improved) -continue HD as per nephrology ELOS: 1-2 nights GI PPx: no Ix DVT PPx: heparin Full code as per daughter and surrogate decision maker
--- NOTE | 2020-06-28 09:27 | PRG ---
DATE OF SERVICE: 06/28/2020 DISCUSSION: Ms. Thao is a 44-year-old female with ESRD, currently on maintenance hemodialysis, type 2 DM, hypertension, and currently undergoing hemodialysis. She has been tolerating her dialysis regimen. We have changed her dialysis to Sunday, Sunday, and Sunday. No other complaints today. OBJECTIVE: VITAL SIGNS: Blood pressure is noted at 191/86-before BP medications; heart rate 70, respiratory rate 18, temperature 97.6, and O2 status 100%. GENERAL: Noted to be awake, alert, and comfortable, not in distress. SKIN: Adequate turgor. HEENT: Pinkish conjunctivae. Anicteric sclerae. No neck mass. Positive for right eye blindness. LUNGS: Clear breath sounds. No wheezing. No crackles. HEART: Normal sinus rhythm. No murmurs, gallops, or rubs. ABDOMEN: Globular. Soft and nontender. No masses. EXTREMITIES: No edema. No deformities. MEDICATIONS: Medications of June 28, 2020, reviewed. DIAGNOSTIC STUDIES: LABORATORY RESULTS: Laboratories of June 27, 2020; white count 4.5, hemoglobin 10.2. June 28, 2020; sodium 140, potassium 3.7, chloride 104, carbon dioxide 19, BUN 21, creatinine 4.75, calcium 8.4, magnesium 2.1, and phosphorus 4.5. ASSESSMENT AND PLAN: 1. End-stage renal disease, stable. We will continue current Sunday, Sunday, and Sunday hemodialysis regimen, fluid removal. 2. Hypertension, adjusting BP medications. 3. Metabolic acidosis, resolved. 4. Chronic anemia, currently on weekly Epogen. Job ID: [id number]
[2020-06-28] MEDS ORDERED: HYDROcodone/Acetaminophen 5/325 mg Tablet PO SCH (09:45)
[2020-06-28] MEDS: Lactinex Tablet PO SCH (10:33)
[2020-06-28] MEDS: Sevelamer Carbonate 800 MG TAB PO SCH ×3 (10:34→17:52)
[2020-06-28] MEDS: AcetaZOLAMIDE 250 MG TAB PO SCH (10:34)
[2020-06-28] MEDS: Gabapentin 300 MG CAP PO SCH (10:34)
[2020-06-28] MEDS: pyridOXINE 50 MG (B6) TAB PO SCH ×3 (10:35→17:52)
[2020-06-28] MEDS: Calcium Acetate 667 MG CAP PO SCH ×3 (10:35→17:51)
[2020-06-28] MEDS: Losartan 25 MG TAB PO SCH (10:36)
[2020-06-28] MEDS: hydrALAZINE 25 MG TAB PO SCH (10:36)
--- NOTE | 2020-06-28 10:36 | PDOC.PALPN ---
Palliative Progress Note - Subjective Ms Thao has had palliative care established. Attempted to visit this morning to discuss her refusing dialysis and current complaint of pain. Patient allowed initial assessment. When attempted to discuss she refused stating she wanted medication for pain but would not engage in conversation for specifics of pain/ location/ect. Refused to identify why she did not pursue dialysis, attempted to discuss goal of care and again refused. - Objective Vital Signs: Vital Signs - Most Recent Temp Pulse Resp BP Pulse Ox 97.6 F 70 14 191/86 H 100 06/28/20 07:30 06/28/20 07:30 06/28/20 07:30 06/28/20 07:30 06/28/20 07:30 - Physical Exam Constitutional: cachectic, ill appearing HEENT: poor dentition Deviation from normal: right eye enucleated, altered vision to left. Respiratory: no wheezing, unlabored breathing Cardiovascular: RRR Gastrointestinal: soft, non-tender Musculoskeletal: no edema, diffuse muscle atrophy Neurology: moves all 4 limbs, no focal deficits Skin: cap refill <2 seconds, no lesions, no rash Psychiatric: A&O x 3 Deviation from normal: aggitated - Assessment (1) Palliative care encounter Code(s): Z51.5 - ENCOUNTER FOR PALLIATIVE CARE Current Visit: Yes Status: Acute (2) Diabetes mellitus with diabetic polyneuropathy Code(s): E11.42 - TYPE 2 DIABETES MELLITUS WITH DIABETIC POLYNEUROPATHY Current Visit: No Status: Chronic (3) ESRD (end stage renal disease) on dialysis Code(s): N18.6 - END STAGE RENAL DISEASE; Z99.2 - DEPENDENCE ON RENAL DIALYSIS Current Visit: No Status: Chronic (4) Noncompliance with diet and medication regimen Code(s): Z91.11 - PATIENT'S NONCOMPLIANCE WITH DIETARY REGIMEN; Z91.14 - PATIENT 'S OTHER NONCOMPLIANCE WITH MEDICATION REGIMEN Current Visit: No Status: Chronic (5) Protein-calorie malnutrition, severe Code(s): E43 - UNSPECIFIED SEVERE PROTEIN-CALORIE MALNUTRITION Current Visit: No Status: Chronic - Plan Plan: Attempted to revisit goal of care with patient. Currently refusing to eat, dialysis, and oral medications as per charge nurse and primary. Patient refusing conversation in relation to goal of care, will attempt to discuss with her daughter who she has previously stated that she wanted to designate as MPOA. Attempted to redirect patient to carry on conversation, unsuccessful at this time. Palliative Care will attempt to again revisit goal of care and determine what barrier is in place and that we can mitigate to create optimal care setting for patient. Communicated with Charge, patient RN, and Dr Goldberg. [35] minutes spent on this encounter with >50% of the time in counseling and coordination of care. - ROS Non Response: due to mental status ( Patient refused to address ROS other than complaint of generalized back pain.)
[2020-06-28] MEDS: levETIRAcetam 500 MG TAB PO SCH (10:43)
[2020-06-28] MEDS: prednisoLONE 1% Ophth Susp 5 ml Bottle L EYE SCH ×2 (10:48→15:17)
[2020-06-28] MEDS: Timolol 0.5% Ophth Soln 5 ml Bottle L EYE SCH (10:48)
[2020-06-28] MEDS: Atropine Sulfate 1% Ophth Soln 5 ml Bottle L EYE SCH (10:56)
[2020-06-28] MEDS: Heparin 5,000 UNITS/ML VIAL SC SCH ×2 (10:56→15:16)
[2020-06-28] MEDS: Amlodipine 10 MG TAB PO SCH (10:58)
[2020-06-28] MEDS: Labetalol HCl 100 MG/20 ML VIAL SLOW IVP PRN (15:11)
[2020-06-28] MEDS: HYDROcodone/Acetaminophen 5/325 mg Tablet PO PRN (15:12)
--- NOTE | 2020-06-28 17:30 | PDOC.HOSPP ---
- Subjective Encounter Date: 06/28/20 Encounter Time: 08:00 Subjective: no overnight events. this morning, continues to refuse medications and treatments. Refused hemodialysis becuase her back hurt even though told that pain medication will be provided immediately. - Objective Vital Signs & Weight: Vital Signs (12 hours) Temp Pulse Resp BP BP Pulse Ox 06/28/20 17:08 96.9 F L 67 16 145/67 H 100 06/28/20 15:11 69 203/93 H 06/28/20 15:04 97.5 F L 69 14 203/93 H 100 06/28/20 11:39 97.7 F 75 14 221/84 H 100 06/28/20 10:58 70 191/86 H 06/28/20 10:48 70 06/28/20 10:36 70 06/28/20 07:30 97.6 F 70 14 191/86 H 100 Weight Admit Weight 87 lb Weight 88 lb I&O: 06/27/20 06/28/20 06/29/20 06:59 06:59 06:59 Intake Total 920 1640 474 Output Total 0 Balance 920 1640 474 Result Diagrams: 06/27/20 07:54 06/28/20 03:46 Additional Labs: Accuchecks 06/28/20 06/27/20 05:29 20:58 POC Glucose 341 H 294 H Hospitalist ROS - Review of Systems ROS unobtainable: due to mental status (agitated and not cooperative) - Medication Medications: Active Medications Generic Name Dose Route Start Last Admin Trade Name Freq PRN Reason Stop Dose Admin Hydrocodone Bitart/Acetaminophen 1 tab 06/28/20 14:43 06/28/20 15:12 [place] 5/325 PO 1 tab Q6H PRN Administration Moderate to Severe Pain (6-10) Acetazolamide 250 mg 06/25/20 09:00 06/28/20 10:34 Diamox PO 250 mg DAILY MEGAN Administration Acidophilus 1 tab 06/25/20 21:00 06/28/20 10:33 Floranex PO 1 tab BID MEGAN Administration Amlodipine Besylate 10 mg 06/26/20 09:00 06/28/20 10:58 Norvasc PO 10 mg DAILY MEGAN Administration Atropine Sulfate 1 drop 06/25/20 09:00 06/28/20 10:56 Atropine 1% Ophth Soln L EYE Not Given BID MEGAN Calcium Acetate 667 mg 06/25/20 08:00 06/28/20 13:04 Phoslo PO Not Given TID-WM [facility] Epoetin Rafat-epbx 7,500 unit 06/25/20 08:45 06/25/20 09:39 Retacrit SC 7,500 unit Q7D MEGAN Administration Gabapentin 300 mg 06/26/20 09:00 06/28/20 10:34 Neurontin PO 300 mg DAILY MEGAN Administration Heparin Sodium (Porcine) 5,000 units 06/25/20 09:00 06/28/20 15:16 Heparin SC Not Given TID MEGAN Hydralazine HCl 25 mg 06/25/20 21:00 06/28/20 10:36 Apresoline PO 25 mg BID MEGAN Administration Levetiracetam 500 mg/ Device 100 mls @ 200 mls/hr 06/26/20 21:00 06/28/20 10: 57 IVPB Not Given BID [facility] Dextrose/Sodium Chloride 1,000 mls @ 60 mls/hr 06/26/20 18:00 06/28/20 03:27 D5 0.9% Ns IV 1,000 mls .[id number] MEGAN Administration Insulin Glargine 6 units/ 0.06 mls @ 0 mls/hr 06/27/20 21:00 06/27/20 20:33 Miscellaneous Medication SC Not Given HS [facility] Labetalol HCl 10 mg 06/26/20 16:51 06/28/20 15:11 Normodyne SLOW IVP 10 mg Q4H PRN Administration SBP GREATER THAN 160 Levetiracetam 500 mg 06/25/20 09:00 06/28/20 10:43 Keppra PO 500 mg BID MEGAN Administration Losartan Potassium 50 mg 06/28/20 09:00 06/28/20 10:36 Cozaar PO 50 mg DAILY MEGAN Administration Melatonin 9 mg 06/25/20 21:00 06/27/20 20:34 Melatonin PO Not Given HS [facility] Metoprolol Succinate 50 mg 06/25/20 09:00 06/28/20 10:34 Toprol Xl PO 50 mg DAILY MEGAN Administration Ondansetron HCl 8 mg 06/26/20 00:14 06/26/20 00:20 Zofran SLOW IVP 8 mg Q8H PRN Administration Nausea/Vomiting Pantoprazole Sodium 40 mg 06/25/20 09:00 06/28/20 10:34 Protonix PO 40 mg DAILY MEGAN Administration Prednisolone Acetate 1 drop 06/25/20 15:00 06/28/20 15:17 Econopred Plus 1% Opth Susp L EYE Not Given TID MEGAN Pyridoxine HCl 25 mg 06/27/20 17:00 06/28/20 14:23 Vitamin B 6 PO Not Given QID MEGAN Sertraline HCl 50 mg 06/25/20 09:00 06/28/20 10:36 Zoloft PO 50 mg QAM MEGAN Administration Sevelamer Carbonate 2,400 mg 06/25/20 08:00 06/28/20 13:04 Renvela PO Not Given TID-WM MEGAN Timolol Maleate 1 drop 06/25/20 21:00 06/28/20 10:48 Timoptic 0.5% Ophth Soln L EYE Not Given BID MEGAN - Exam General - other findings: agitated, not cooperative with exam Hosp A/P - Plan #troponinemia #elevated BNP #HTN emergency -continues to be hypertensive; refuses medications despite being offered alternatives #Severe metabolic acidosis (improved after HD) #metabolic encephalopathy (improved) -continue HD as per nephrology; refused (06/28), remains acidotic #chronic back pain started low dose norco, which per patient helped with back pain ELOS: 1-2 nights GI PPx: no Ix DVT PPx: heparin Full code as per daughter and surrogate decision maker
[2020-06-28 21:45] LABS: Glucose 698 mg/dL (70-105)
--- NOTE | 2020-06-28 23:25 | PDOC.EVN ---
Event Note - Event Note Event Note: called by RN for hyperglycemia and patient refusing insulin. on my PE patient very belligerent but does not appear to be in distress, refusing to talk to me and to hear any explanation about her life being in danger. I will stop D5 w and recheck her glucose level later on, further management accordingly.
[2020-06-29] MEDS: Atropine Sulfate 1% Ophth Soln 5 ml Bottle L EYE SCH ×2 (00:59→14:11)
[2020-06-29] MEDS: Heparin 5,000 UNITS/ML VIAL SC SCH ×3 (01:00→15:53)
[2020-06-29] MEDS: hydrALAZINE 25 MG TAB PO SCH ×2 (01:01→14:09)
[2020-06-29] MEDS: levETIRAcetam 500 MG TAB PO SCH (01:03)
[2020-06-29] MEDS: Lactinex Tablet PO SCH ×2 (01:03→14:09)
[2020-06-29] MEDS: Melatonin 3 MG TAB PO SCH (01:04)
[2020-06-29] MEDS: Timolol 0.5% Ophth Soln 5 ml Bottle L EYE SCH ×2 (01:04→14:07)
[2020-06-29] MEDS: Insulin Glargine 6 UNITS in Pre-Filled Syringe 1 EACH SC SCH (01:05)
[2020-06-29] MEDS: prednisoLONE 1% Ophth Susp 5 ml Bottle L EYE SCH ×3 (01:05→15:53)
[2020-06-29] MEDS: pyridOXINE 50 MG (B6) TAB PO SCH ×2 (01:06→14:08)
[2020-06-29] MEDS: Dextrose 5 % And 0.9 % NaCl 1,000 ML IV SCH (01:33)
[2020-06-29] MEDS: HYDROcodone/Acetaminophen 5/325 mg Tablet PO PRN ×2 (04:43→14:59)
[2020-06-29 04:50] LABS: Anion Gap 15 mmol/L (10-20); BUN (Urea Nitrogen) 21 mg/dL (7.0-18.7); Calc. Creatinine Clearance 8 mL/min (70-130); Calcium 8.6 mg/dL (7.8-10.44); Carbon Dioxide 22 mmol/L (22-29); Chloride 103 mmol/L (98-107); Estimated GFR-MDRD 8; Phosphorus 4.4 mg/dL (2.3-4.7); Potassium 3.9 mmol/L (3.5-5.1); Sodium 136 mmol/L (136-145)
[2020-06-29 04:52] LABS: Glucose 625 mg/dL (70-105)
[2020-06-29] MEDS ORDERED: HYDROcodone/Acetaminophen 5/325 mg Tablet PO SCH (08:00)
--- NOTE | 2020-06-29 09:15 | PRG ---
DATE OF SERVICE: 06/29/2020 SUBJECTIVE: Ms. Thao is a 44-year-old female with ESRD and currently undergoing hemodialysis. She declined dialysis yesterday, and for this reason, she is undergoing dialysis today. No new complaints. No chest pain or shortness of breath. OBJECTIVE: VITAL SIGNS: Blood pressure 190/81-before BP medications, heart rate 66, respiratory rate 15, temperature 98.3, O2 saturation 93%. GENERAL: Awake, alert, comfortable. Not in distress. SKIN: Adequate turgor. HEENT: Pinkish conjunctivae. Anicteric sclerae. Right eye blindness. LUNGS: Clear breath sounds. No wheezing. No crackles. HEART: Normal sinus rhythm. No murmurs, no gallops, no rubs. ABDOMEN: Globular, soft, nontender. No masses. EXTREMITIES: No edema. No deformities. MEDICATIONS: Medications of June 29, 2020, were reviewed. LABORATORY DATA: Laboratories of June 27, 2020; white count 4.5, hemoglobin 10.2. On June 29, 2020; sodium 136, potassium 3.9, chloride 103, carbon dioxide 22, BUN 21, creatinine 5.55, glucose 524, calcium 8.6, phosphorus 4.4. ASSESSMENT AND PLAN: 1. Anemia, on weekly Epogen. 2. End-stage renal disease, stable. We will continue current 3 times a week hemodialysis. She is undergoing dialysis and has agreed to proceed with dialysis. Overall, continue supportive management. 3. Type-2 diabetes mellitus, p.r.n. insulin. Job ID: [id number]
[2020-06-29] MEDS ORDERED: HumaLOG 300 UNITS/3 ML VIAL SC SCH (12:30)
[2020-06-29 12:32] VITALS: TEMP 98.1
[2020-06-29] MEDS: Labetalol HCl 100 MG/20 ML VIAL SLOW IVP PRN (12:35)
[2020-06-29] MEDS: Losartan 25 MG TAB PO SCH (14:09)
[2020-06-29] MEDS: AcetaZOLAMIDE 250 MG TAB PO SCH (14:10)
[2020-06-29] MEDS: Amlodipine 10 MG TAB PO SCH (14:10)
[2020-06-29] MEDS: Sevelamer Carbonate 800 MG TAB PO SCH (14:10)
[2020-06-29] MEDS: Calcium Acetate 667 MG CAP PO SCH (14:10)
[2020-06-29] MEDS: Gabapentin 300 MG CAP PO SCH (14:11)
[2020-06-29 14:41] VITALS: BP 171/79
[2020-06-29 14:55] VITALS: BMI 17.0
--- NOTE | 2020-06-30 02:32 | DIS ---
DATE OF ADMISSION: 06/24/2020 DATE OF DISCHARGE: 06/29/2020 HOSPITAL COURSE: Ms. Thao is a 44-year-old female with type 2 diabetes, hypertension, end-stage renal disease, and nonadherence, who presents with shortness of breath after missing hemodialysis session. She was diagnosed with hypertensive emergency, resulting in demand ischemia, heart failure, and metabolic encephalopathy due to severe anion gap metabolic acidosis. The patient improved promptly after having hemodialysis; however, during her inpatient stay, continued to refuse treatment resulting in fluctuating levels of blood glucose and blood pressure. She also refused to speak with the Palliative Care team, which was consulted due to the patient's refusal to be treated and her previous hospice status. The patient received an additional hemodialysis session on the day of discharge. She tolerated hemodialysis well and had no complaints. PHYSICAL EXAMINATION: VITAL SIGNS: Blood pressure 171/79, pulse 67, respiratory rate 16, oxygen saturation 99% on room air, and temperature 98.1. GENERAL APPEARANCE: Lying in bed comfortably. Awake and alert. HEENT: Right eye shut. Left eye with severe cataracts. CARDIAC: Regular rate and rhythm. No murmurs, gallops, or rubs. LUNGS: Clear to auscultation bilaterally. No wheezing, rales, or rhonchi. GI: Soft, nontender, and nondistended. Normal bowel sounds. EXTREMITIES: No edema. PSYCHIATRIC: Flat affect. Labile mood. Alert and oriented x3. MEDICATION LIST: New medications, no new medications. Modified medications: No modified medications. Continued medications; 1. Tylenol. 2. Acetazolamide. 3. Amlodipine. 4. Ophthalmic atropine. 5. Ophthalmic brimonidine. 6. Calcium acetate. 7. Ophthalmic dorzolamide. 8. Gabapentin. 9. Humalog. 10. Hydralazine. 11. Hydroxyzine. 12. Glargine. 13. Lactobacillus. 14. Levetiracetam. 15. Loperamide. 16. Melatonin. 17. Metoclopramide. 18. Metoprolol succinate. 19. Zofran. 20. Pantoprazole. 21. Veltassa. 22. Prednisolone ophthalmic. 23. Sevelamer. 24. Ophthalmic timolol. Job ID: [id number]
--- NOTE | 2020-06-30 06:17 | PQF ---
CLINICAL DOCUMENTATION CLARIFICATION FORM: Dear : Rex Goldberg Date / Time: 06/30/20 0616 Please exercise your independent, professional judgment in responding to the clarification form. Clinical indicators are provided on the bottom of this form for your review Please check appropriate box(es): HEART FAILURE: A. ACUITY [ ] Acute [ x ] Acute on Chronic [ ] Chronic B. TYPE: [ ] Systolic / HFrEF [ ] Diastolic / HFpEF [ x ] Combined Systolic / Diastolic [ ] Other diagnosis [ ] Unable to determine In addition, please specify: Present on Admission (POA): [x ] Yes [ ] No [ ] Unable to determine Physician Signature: Date/Time: For continuity of documentation, please document condition throughout progress notes and discharge summary. Thank You. To be completed by CDI/Coding staff for physician review: Present Clinical Indicators - Signs / Symptoms / Labs Results and Location in Medical Record [X] BP 214/91; 220/100, Pulse 87, Resp 16, Temp 97.6 Vital signs 06/24 [X] BNP 563.6, Troponin I 0.058; 0.057; 0.088 Laboratory Chemistry 06/24 [X] Chest X-ray Impression: BLT opacities concerning for Pulmonary edema, RLL consolidation [X] She was supposed to go to dialysis on Sunday by she missed it H&P p1 Dr Maldonado [X] Elevated troponin H&P p4 06/24 Dr Maldonado [X] Troninmia, Elevated BNP likely demand ischemia on context hypervolemia HPN p6 DR Goodman 06/26 [X] HTN Emergency [X] Reports cough and SOB HP 06/24 [X] Crackles in bilateral bases HP 06/24 [X] bilateral pleural effusions PN 06/25 [X] fluid overload PN 06/25 [X] LE edema PN 06/26 CHF H&P p1 06/24 Dr Maldonado Present Risk Factors Results and Location in Medical Record [X] ESRD H&P p1 06/24 Dr Maldonado [X] HTN H&P p1 06/24 Dr Maldonado [X] DM H&P p1 06/24 Dr Maldonado [X] CAD H&P p1 06/24 Dr Maldonado Present Treatments Results and Location in Medical Record [X] Aspirin Chewable 81 mg oral JAN 30 [X] IV Apresoline 10 mg MAR 06/24 [X] Dialysis Renal Panel 06/26 [X] Chest X-ray Imaging Dr Ureña 06/24 CDS/[employer] Professor Signature: Ema Mcak Phone #: ext [phone] Date/Time: 06/30/20615 This is a permanent part of the Medical Record [facility]
--- NOTE | 2020-06-30 06:19 | PQF ---
CLINICAL DOCUMENTATION CLARIFICATION FORM: Dear : Rex Goldberg Date / Time: 06/30/20 0618 Please exercise your independent, professional judgment in responding to the clarification form. Clinical indicators are provided on the bottom of this form for your review Based on your clinical judgment, can you please specify the acuity of patients pulmonary edema? Please check appropriate box(es): [ ] Acute Cardiogenic Pulmonary edema [ x ] Acute Non-Cardiogenic Pulmonary edema [ ] Chronic Pulmonary edema [ ] Other diagnosis [ ] Unable to determine Physician Signature: Date/Time: For continuity of documentation, please document condition throughout progress notes and discharge summary. Thank You. To be completed by CDI/Coding staff for physician review: Present Clinical Indicators - Signs / Symptoms / Labs Results and Location in Medical Record [X] BP 214/91; 220/100, Pulse 87, Resp 16, Temp 97.6 Vital signs 06/24 [X] BNP 563.6, Troponin I 0.058; 0.057; 0.088 Laboratory Chemistry 06/24 [X] Chest X-ray Impression: BLT opacities concerning for Pulmonary edema, RLL consolidation Imaging Dr Ureña 06/24 [X] She was supposed to go to dialysis on Sunday by she missed it H&P p1 Dr Maldonado Missed session likley cause of pulmonary edema/Fluid overlaod H&P p1 06/24 Dr Maldonado [X] Troninmia, Elevated BNP likely demand ischemia on context hypervolemia HPN p6 DR Goodman 06/26 [X] HTN Emergency HPN p6 DR Goodman 06/26 [X] Reports cough and SOB HP 06/24 [X] Crackles in bilateral bases HP 06/24 Present Risk Factors Results and Location in Medical Record [X] ESRD H&P p1 06/24 Dr Maldonado [X] HTN H&P p1 06/24 Dr Maldonado [X] DM H&P p1 06/24 Dr Maldonado [X] CAD H&P 06/24 Dr Maldonado [X] CHF H&P 06/24 Dr Maldonado Present Treatments Results and Location in Medical Record [X] Aspirin Chewable 81 mg oral JAN 30 [X] IV Apresoline 10 mg JAN 30 [X] Dialysis Renal Panel 06/26 [X] Chest X-ray Imaging Dr Ureña 06/24 [facility] [employer] [facility] Signature: Ema Mack Phone #: ext [phone] Date/Time: 06/30/20617 This is a permanent part of the Medical Record [facility]
== END 2020-06-29 15:46 | DRG 291 ==
LOC: ERS 15:13 → OBSVTOIN 17:08 → 2NO 17:08
PROVIDERS: ADMIT Student in an Organized Health Care Education/Training Program; ATTEND Student in an Organized Health Care Education/Training Program
PROC: 5A1D70Z Performance of Urinary Filtration, Intermittent, Less than 6 Hours Per Day (ICD-10-PCS; principal; 2020-06-26)
DX: I13.2 Hypertensive heart and chronic kidney disease with heart failure and with stage 5 chronic kidney disease, or end stage renal disease (principal); G93.41 Metabolic encephalopathy; N18.6 End stage renal disease; E43 Unspecified severe protein-calorie malnutrition; I50.43 Acute on chronic combined systolic (congestive) and diastolic (congestive) heart failure; J81.0 Acute pulmonary edema; I16.1 Hypertensive emergency; I24.8 Other forms of acute ischemic heart disease; N25.81 Secondary hyperparathyroidism of renal origin; Z68.1 Body mass index [BMI] 19.9 or less, adult; E87.2 Acidosis; E86.1 Hypovolemia; Z20.828 Contact with and (suspected) exposure to other viral communicable diseases; I25.10 Atherosclerotic heart disease of native coronary artery without angina pectoris; D63.1 Anemia in chronic kidney disease; G47.00 Insomnia, unspecified; K21.9 Gastro-esophageal reflux disease without esophagitis; E78.5 Hyperlipidemia, unspecified; F41.9 Anxiety disorder, unspecified; F32.9 Major depressive disorder, single episode, unspecified; D69.6 Thrombocytopenia, unspecified; K31.84 Gastroparesis; G40.909 Epilepsy, unspecified, not intractable, without status epilepticus; K52.9 Noninfective gastroenteritis and colitis, unspecified; G89.29 Other chronic pain; M54.5 Low back pain; E11.22 Type 2 diabetes mellitus with diabetic chronic kidney disease; E11.65 Type 2 diabetes mellitus with hyperglycemia; E11.43 Type 2 diabetes mellitus with diabetic autonomic (poly)neuropathy; Z53.29 Procedure and treatment not carried out because of patient's decision for other reasons; Z91.11 Patient's noncompliance with dietary regimen; Z91.14 Patient's other noncompliance with medication regimen; Z99.2 Dependence on renal dialysis; Z91.15 Patient's noncompliance with renal dialysis; Z79.899 Other long term (current) drug therapy; Z79.4 Long term (current) use of insulin
CPT/HCPCS: 36415; 36416; 71045; 80048; 80053; 82553; 83735; 83880; 84100; 84145; 84484; 85025; 87635; 90935; 93005; 96365; 96367; 96375; 96376; G0257; G0378; J0360; J0456; J0696; J1644; J1815; J1953; J2405; J3490; J7050; Q5105; U0003

== ENCOUNTER 2020-09-13 07:32 | Inpatient (IN) | payer OTHER ==
[2020-09-13 09:17] LABS: Mean Corpuscular HGB CONC 32.9 g/dL (32.0-36.0); Mean Corpuscular Hemoglobin 27.3 pg (27.0-31.0); Mean Corpuscular Volume 82.9 fL (78.0-98.0); Red Blood Cell (RBC) Count 4.76 mill/uL (4.20-5.40); White Blood Cell (WBC) Count 7.1 thou/uL (4.8-10.8)
[2020-09-13 09:37] LABS: #Eosinphils 0.1 thou/uL (0.0-0.7); #Lymphocytes 1.5 thou/uL (1.20-3.40); #Monocytes 0.4 thou/uL (0.11-0.59); #Neutrophils 5.1 thou/uL (1.40-6.50); %Basophils 0.1 % (0.0-1.0); %Eosinophils 1.9 % (0.0-10.0); %Lymphocytes 20.7 % (21.0-51.0); %Monocytes 5.5 % (0.0-10.0); %Neutrophils 71.8 % (42.0-75.0); ALT (SGPT) Less than 7 U/L (8-55); AST (SGOT) 11 U/L (5-34); Albumin 4.1 g/dL (3.5-5.0); Alkaline Phosphatase 174 U/L (40-110); Bilirubin, Total 0.6 mg/dL (0.2-1.2); Calc. Creatinine Clearance 0 mL/min (70-130); Calcium 7.9 mg/dL (7.8-10.44); Chloride 94 mmol/L (98-107); Estimated GFR-MDRD 3; Globulin 3.2 g/dL (2.4-3.5); Glucose 234 mg/dL (70-105); MDiff Complete? YES; Mean Platelet Volume 12.8 fL (7.4-10.4); Platelet Count 84 thou/uL (130-400); Platelet Morphology Comment Appears Decreased; Polychromasia SLIGHT = 2-3 cells (100X) (0-2/hpf); Protein, Total 7.3 g/dL (6.0-8.3); RBC Distribution Width 15.5 % (11.5-14.5); Sodium 135 mmol/L (136-145)
[2020-09-13 09:45] LABS: Carbon Dioxide Less than 8 mmol/L (22-29); Potassium 7.4 mmol/L (3.5-5.1)
[2020-09-13 09:48] LABS: BUN (Urea Nitrogen) 144 mg/dL (7.0-18.7)
[2020-09-13] MEDS ORDERED: Insulin Regular 300 UNITS/3 ML VIAL ONE (10:41)
[2020-09-13] MEDS ORDERED: Calcium Chloride 1 GM/10 ML Abboject SYRINGE ONE ×2 (10:41→10:57)
[2020-09-13] MEDS ORDERED: Dextrose 50% Abboject 50 ML SYRINGE ONE (10:41)
[2020-09-13] MEDS ORDERED: Albuterol Sulfate 2.5 mg/0.5 ml Neb ONE (11:08)
[2020-09-13] MEDS ORDERED: Albuterol Sulfate 2.5 mg/3 ml Neb ONE (11:09)
[2020-09-13 12:02] LABS: HBSAg Index 0.17 S/CO (0-0.99); Hep B Surf Ag Non-Reactive S/CO (NonReactive)
[2020-09-13] MEDS ORDERED: HumaLOG 300 UNITS/3 ML VIAL SC PRN ×2 (12:30)
[2020-09-13] MEDS ORDERED: Dextrose 5% in Water 1,000 ML IV PRN (12:30)
[2020-09-13] MEDS ORDERED: Acetaminophen 325 MG TAB PO PRN (12:30)
[2020-09-13] MEDS ORDERED: Dextrose 50% Abboject 50 ML SYRINGE SLOW IVP PRN (12:30)
--- NOTE | 2020-09-13 13:27 | HP ---
CHIEF COMPLAINT: Weakness. HISTORY OF PRESENT ILLNESS: This is a 44-year-old female with end-stage renal disease, on hemodialysis; hypertension; GERD; chronic thrombocytopenia; and diabetes mellitus, who presents to this hospital from her [facility] due to weakness. All the history is obtained from the ER physician, who reports that the patient has not received the last three dialysis sessions. In the emergency room today, the patient is hyperkalemic with EKG changes, hospitalist called for admission and talent partner called for emergent hemodialysis. The patient denies wanting to answer questions. States that she simply wants to stay asleep. In the emergency room, the patient received 1. 5 mg of albuterol. 2. Calcium chloride 1 amp. 3. Sodium bicarbonate 1 amp. 4. Sodium chloride 1 L. 5. 10 units of regular insulin. 6. 1 amp of D50. ALLERGIES: BY CHART REVIEW, NO KNOWN DRUG ALLERGIES. CURRENT MEDICATIONS: From the [facility] list - no dosing interval is listed 1. Hydralazine 25 mg. 2. Tylenol 325 mg. 3. Imodium. 4. Pro-Stat amino acids. 5. Insulin sliding scale. 6. Lantus 14 units 7. Metoprolol succinate 50 mg. 8. Pantoprazole 40 mg. 9. Acetazolamide 250 mg. 10. Hydroxyzine 50 mg. 11. Calcium acetate 667 mg. 12. Timoptic, left eye. 13. Prednisolone/moxifloxacin, left eye. 14. Dorzolamide. 15. Brimonidine. 16. Gabapentin 300 mg. 17. Melatonin 10 mg. 18. Atropine, left eye. 19. Amlodipine 10 mg. 20. Zofran 4 mg. 21. Zoloft 50 mg. PAST MEDICAL HISTORY: Based on chart review, 1. End-stage renal disease, on hemodialysis. 2. Diabetes mellitus. 3. Hypertension. 4. GERD. 5. Legally. blind 6. Chronic thrombocytopenia. PAST SURGICAL HISTORY: By chart review, eye surgery. FAMILY HISTORY: By chart review, coronary artery disease. SOCIAL HISTORY: The patient lives at a nursing facility, she is a full code. REVIEW OF SYSTEMS: Not obtainable. PHYSICAL EXAMINATION: VITAL SIGNS: Blood pressure 138/60, pulse 77, respirations 15, sat 100% on room air, and temperature 97.7. GENERAL: The patient will awaken and answer questions, she is not following commands, when she speaks, she is speaking easily without apparent distress. Exam is limited based on patient cooperation. HEENT: No visible abnormalities NECK: Supple, non-tender LUNGS: Clear to auscultation. No audible wheezing, rhonchi, or rales. HEART: Normal S1 and S2. Regular rate. No significant murmurs. ABDOMEN: Soft with present bowel sounds. EXTREMITIES: No edema. SKIN: Multiple areas of healed scars on her lower extremities bilaterally. NEUROLOGIC: Unable to adequately assess. PSYCH: Unable to adequately assess. VASCULAR: 2+ dorsalis pedis pulses. LABORATORY DATA: Labs reviewed today, CBC; 7.1, 13, 39.4, 84. Chemistry; 135, 7.4, 94, less than 8, 144, 14.1, 234. LFTs; AST 11, T bilirubin 0.6, ALT less than 7, alkaline phosphatase 174, total protein 7.3, albumin 4.1. Hepatitis B antigen nonreactive. EKG is personally reviewed. She has peaked T-waves. QT corrected of 493, sinus rhythm, normal axis. Abnormal R-wave progression. IMPRESSION: 1. Hyperkalemia in a patient with end-stage renal disease, on hemodialysis and missed dialysis sessions with EKG changes. 2. Uremia, likely impacting her mental status. 3. Severe metabolic acidosis secondary to missed dialysis. 4. Diabetes mellitus, appears uncontrolled. 5. Chronic thrombocytopenia. 6. Elevated alkaline phosphatase. 7. Hypertension, unknown control. 8. Gastroesophageal reflux disease. 9. Prolonged QT interval. PLAN: 1. Admission to the hospital. 2. Dr. Hannon has been consulted for emergent dialysis, who anticipates to dialyze the patient daily over the next few days. 3. Monitor mental status. 4. Continue medications for blood sugar management. We will start her Lantus and monitor blood sugars. 5. Monitor her blood pressures with the hemodialysis. Add her home medicines as her blood pressure will tolerate. Obtain correct dosing and intervals of all medications. 6. Monitor on telemetry. 7. Avoid medications that can prolong the QT interval. 8. Avoid any pharmacologic DVT prophylaxis due to the thrombocytopenia. 9. We will need to confirm the dosing on her eye medications and continue those. 10. DVT prophylaxis with pneumatic compression devices. 11. GI prophylaxis not indicated. 12. Code status is full per her chart review. 13. Unable to review this plan of care with the patient, she does demonstrate awareness of being in the hospital. Job ID: [id number] MTDD
--- NOTE | 2020-09-13 16:08 | CON ---
DATE OF CONSULTATION: 09/13/2020 CONSULTING PHYSICIAN: Parulist . REASON FOR CONSULTATION: Hyperkalemia. HISTORY OF PRESENT ILLNESS: A 44-year-old female, who is a very sad case. She lives in a [facility] and is dependent on hemodialysis and told that she refused to go to dialysis for her 3 sessions last week. She was brought in today with weakness. She was found to be hyperkalemic and acidotic. She is now being dialyzed in the ER. The patient does not really answer any questions for me. She does lays there in a semi-catatonic state. I am not sure what her baseline is. PAST MEDICAL HISTORY: 1. End-stage renal disease. 2. Diabetes mellitus. 3. Hypertension. 4. Gastroesophageal reflux. 5. Blindness. PAST SURGICAL HISTORY: She has had eye surgery. SOCIAL HISTORY: Lives in a nursing facility. I am not sure who is making decisions for her. MEDICATIONS: Prior to admission, these were reviewed and list in history and physical section of the chart. REVIEW OF SYSTEMS: Cannot be obtained from the patient. ALLERGIES: NONE. PHYSICAL EXAMINATION: VITAL SIGNS: O2 saturations running 95% on room air at rest, temperature 97.7, blood pressure 138/60, respiratory rate 15, and pulse 77. GENERAL: The patient is a chronically ill-appearing female, who appears to have contractures. HEENT: She has bilateral severe cataracts. Oropharynx dry. NECK: No adenopathy or JVD. LUNGS: Clear. CARDIAC: S1 and S2, regular. ABDOMEN: Soft and nontender to palpation. EXTREMITIES: Severe muscle wasting and contracted arms and legs. LABORATORY DATA: Sodium 135, potassium 7.4 prior to dialysis, chloride 94, CO2 less than 8, BUN 144, creatinine 14, glucose 234, and albumin 4.1. White blood cell count 7.1, hematocrit 39.4, and platelet count 84. ASSESSMENT: 1. The patient is presenting with acute fluid overload secondary to not having dialysis performed last week. Additionally, she has hyperkalemia. 2. Other chronic medical problems listed above. PLAN: Main issue is dialysis. She is currently undergoing that and her vital signs are stable. Electrolytes will be repeated tomorrow. I doubt that there is anything further that needs to be done from a pulmonary critical care standpoint other than monitoring her on telemetry for at least 24 hours. Job ID: [id number]
[2020-09-13] MEDS ORDERED: Lorazepam 2 MG/ML VIAL ONE (16:26)
[2020-09-13] MEDS ORDERED: Lorazepam 2 MG/ML VIAL SLOW IVP SCH (16:30)
--- NOTE | 2020-09-13 16:31 | PDOC.EVN ---
Event Note - Event Note Event Note: Called by nurse for unresponsiveness, shaking/jerking - responding to deep sternal rub only. This started after dialysis. Pt evaluated - facial grimacing, slight arm and leg jerking not responding Chart reviewed earlier and pt is on keppra as an outpatient - do not see a dx of seizure. bp elevated, blood sugar 110 Impression: Jerking/Unresponsive post-dialysis - d/w Neurology by phone - Dr. Lau will see her tomorrow, recommends 2 mg ativan, load with 1000 mg of fosphenytoin, and CT scan of head. EEG not available today - ordered for tomorrow - check ecg - check labs to include cbc, troponin, mag, cmp reviewed plan with nursing staff Addendum - CT negative, labs unremarkable, jerking resolved after ativan and fosphenytoin. Current bp is 200 systolic -ordering labetalol IV now as the hospital does not have hydralazine. Pt will go up to the ICU. Addendum - updated Dr. Hannon with information above. No CCU beds available - pt is hemodynamically stable - can go to stroke or tele bed.
--- NOTE | 2020-09-13 16:34 | CON ---
DATE OF CONSULTATION: 09/13/2020 HISTORY OF PRESENT ILLNESS: Ms. Thao is a 44-year-old female with known history of ESRD from diabetic nephropathy, was admitted due to uremic signs and symptoms. She has not reported for dialysis for more than a week. She is currently a [facility] patient. During the initial evaluation in the ER, the patient was found to be clinically uremic and is having asterixis. In addition, she was severely hyperkalemic. We are now consulted for management of her ESRD and she is undergoing emergent hemodialysis. REVIEW OF SYSTEMS: Not obtainable since the patient is unresponsive, has decreased mentation. HOME MEDICATIONS: Includes the following; 1. Hydralazine 25 mg tab t.i.d. 2. Imodium p.r.n. 3. Insulin sliding scale. 4. Lantus 14 units subcu q.a.m. 5. Metoprolol succinate 50 mg tablet once a day. 6. Protonix 40 mg tablet once a day. 7. Acetazolamide 250 mg once a day. 8. Hydroxyzine 50 mg tab daily. 9. Calcium acetate 667 mg one tab t.i.d. with meals. 10. Prednisolone to be applied to the left eye. 11. Dorzolamide eye drop as directed. 12. Gabapentin 300 mg tablet at bedtime. 13. Atropine eye drops applied to the left eye. 14. Amlodipine 10 mg tab once a day. 15. Zoloft 50 mg tab once a day. PAST MEDICAL HISTORY: 1. ESRD from diabetic nephropathy. 2. Type 2 diabetes mellitus. 3. Chronic right eye blindness. 4. Type 2 diabetes mellitus. 5. History of noncompliance. 6. Diabetic gastroparesis. 7. Diabetic retinopathy. 8. Hypertension. PAST SURGICAL HISTORY: Status post right eye enucleation, status post AV fistula placement, status post cuffed hemodialysis catheter placement, status post bilateral tubal ligation. SOCIAL HISTORY: The patient currently in [facility]. Two children. No alcohol intake. No IV drug abuse. Status post multiple blood transfusion. 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 Medically disabled. Education, 9th grade. ALLERGIES: NONE. TRAUMA: None. IMMUNIZATIONS: Up-to-date. HOSPITALIZATIONS: Please see past medical history. FAMILY HISTORY: No family history of ESRD. PHYSICAL EXAMINATION: VITAL SIGNS: Blood pressure is 130/70, heart rate 83, and respiratory rate 12. GENERAL: Decreased mentation, not in cardiorespiratory distress. SKIN: Adequate turgor. HEENT: Slightly pale conjunctivae. Anicteric sclerae. NECK: No neck mass. No carotid bruits. No JVD. CHEST: No deformities. LUNGS: Decreased breath sounds. No wheezing. No crackles. HEART: Normal sinus rhythm. No murmur. No gallops. No rubs. ABDOMEN: Globular, soft, and nontender. No masses. EXTREMITIES: No edema. NEUROLOGICAL: Positive for asterixis. Decreased right eye visual acuity. Decreased mentation. LABORATORY DATA: Laboratories of September 13, 2020, was reviewed - potassium noted at 7.4 with a BUN of 144. ASSESSMENT AND PLAN: 1. Uremia/metabolic acidosis/hyperkalemia - secondary to her missed dialysis treatments. She has missed dialysis for more than a week. She is undergoing emergent hemodialysis today. My plan is to do daily hemodialysis with this patient. 2. Hyperkalemia, emergent hemodialysis - using a 2.0 potassium bath. 3. Metabolic acidosis related to her underlying chronic renal failure. The patient is undergoing hemodialysis. Overall, agree with current management. Job ID: [id number]
[2020-09-13] MEDS ORDERED: SODIUM CHLORIDE IVPB SCH (16:50)
[2020-09-13] MEDS ORDERED: FOSPHENYTOIN SODIUM IVPB SCH (16:50)
[2020-09-13] MEDS ORDERED: ADMIXTURE FEE IVPB SCH (16:50)
--- NOTE | 2020-09-13 17:28 | CT ---
CT Brain WO Con: 09/13/2020 5:07 PM CLINICAL HISTORY: Altered mental status. IMAGING TECHNIQUE: Multiple CT images were obtained of the brain without IV contrast. COMPARISON: Prior exam dated November 26, 2019 FINDINGS: BRAIN: Evidence of acute infarct: None. Evidence of chronic ischemic change:None. Evidence of intracranial hemorrhage: None. Evidence of midline shift: Third ventricle and septum pellucidum are midline. Ventricles: Normal. No hydrocephalus. SKULL: The skull is intact. 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 VISUALIZED PARANASAL SINUSES: Clear. MASTOID AIR CELLS: There is a partial effusion in the right mastoid air cells. The left mastoid air cells are clear. EXTRACRANIAL SOFT TISSUES: Normal. IMPRESSION: No acute intracranial abnormality.
[2020-09-13 17:50] LABS: #Eosinphils 0.1 thou/uL (0.0-0.7); #Lymphocytes 0.7 thou/uL (1.20-3.40); #Monocytes 0.3 thou/uL (0.11-0.59); #Neutrophils 4.3 thou/uL (1.40-6.50); %Basophils 0.6 % (0.0-1.0); %Eosinophils 1.6 % (0.0-10.0); %Lymphocytes 12.6 % (21.0-51.0); %Monocytes 5.9 % (0.0-10.0); %Neutrophils 79.2 % (42.0-75.0); Hemoglobin 12.3 g/dL (12.0-16.0); Mean Corpuscular HGB CONC 33.5 g/dL (32.0-36.0); Mean Corpuscular Hemoglobin 27.6 pg (27.0-31.0); Mean Corpuscular Volume 82.5 fL (78.0-98.0); Mean Platelet Volume 10.6 fL (7.4-10.4); Platelet Count 81 thou/uL (130-400); RBC Distribution Width 15.2 % (11.5-14.5); Red Blood Cell (RBC) Count 4.44 mill/uL (4.20-5.40); White Blood Cell (WBC) Count 5.5 thou/uL (4.8-10.8)
[2020-09-13 18:01] LABS: Phosphorus 2.9 mg/dL (2.3-4.7)
[2020-09-13 18:10] LABS: ALT (SGPT) Less than 7 U/L (8-55); AST (SGOT) 14 U/L (5-34); Albumin 3.9 g/dL (3.5-5.0); Alkaline Phosphatase 159 U/L (40-110); Anion Gap 25 mmol/L (10-20); BUN (Urea Nitrogen) 25 mg/dL (7.0-18.7); Bilirubin, Total 0.8 mg/dL (0.2-1.2); Calc. Creatinine Clearance 0 mL/min (70-130); Calcium 9.2 mg/dL (7.8-10.44); Carbon Dioxide 22 mmol/L (22-29); Chloride 95 mmol/L (98-107); Estimated GFR-MDRD 12; Glucose 117 mg/dL (70-105); Potassium 3.1 mmol/L (3.5-5.1); Protein, Total 6.9 g/dL (6.0-8.3); Sodium 139 mmol/L (136-145)
[2020-09-13 18:16] LABS: Troponin I 0.321 ng/mL (< 0.028)
[2020-09-13] MEDS ORDERED: Labetalol HCl 100 MG/20 ML VIAL ONE (18:47)
[2020-09-13] MEDS ORDERED: Insulin Glargine 10 UNITS in Pre-Filled Syringe SC SCH (21:00)
[2020-09-13 21:59] VITALS: BMI 19.4
[2020-09-14] MEDS: Sevelamer Carbonate 800 MG TAB PO SCH ×4 (00:13→15:39)
[2020-09-14 05:11] LABS: #Basophils 0.1 thou/uL (0.0-0.2); #Eosinphils 0.1 thou/uL (0.0-0.7); #Lymphocytes 0.8 thou/uL (1.20-3.40); #Monocytes 0.4 thou/uL (0.11-0.59); #Neutrophils 3.5 thou/uL (1.40-6.50); %Basophils 1.1 % (0.0-1.0); %Eosinophils 2.9 % (0.0-10.0); %Lymphocytes 16.5 % (21.0-51.0); %Monocytes 7.2 % (0.0-10.0); %Neutrophils 72.3 % (42.0-75.0); Hemoglobin 11.9 g/dL (12.0-16.0); Mean Corpuscular HGB CONC 33.3 g/dL (32.0-36.0); Mean Corpuscular Volume 83.9 fL (78.0-98.0); Platelet Count 74 thou/uL (130-400); RBC Distribution Width 15.3 % (11.5-14.5); Red Blood Cell (RBC) Count 4.26 mill/uL (4.20-5.40); White Blood Cell (WBC) Count 4.9 thou/uL (4.8-10.8)
[2020-09-14 05:27] LABS: Anion Gap 29 mmol/L (10-20); BUN (Urea Nitrogen) 29 mg/dL (7.0-18.7); Calc. Creatinine Clearance 9 mL/min (70-130); Calcium 8.1 mg/dL (7.8-10.44); Carbon Dioxide 18 mmol/L (22-29); Chloride 96 mmol/L (98-107); Estimated GFR-MDRD 9; Glucose 191 mg/dL (70-105); Potassium 3.9 mmol/L (3.5-5.1); Sodium 139 mmol/L (136-145)
--- NOTE | 2020-09-14 08:58 | PRG ---
DATE OF SERVICE: 09/14/2020 SUBJECTIVE: Ms. Thao is a 44-year-old female with ESRD and was admitted due to uremia. She had missed several dialysis sessions. She underwent emergent hemodialysis yesterday. She was noted to be also severely hyperkalemic. She is now undergoing a second hemodialysis today. She is teary eyed for unclear reasons. No complaints of chest pain or shortness of breath. Tremor is resolved. OBJECTIVE: VITAL SIGNS: Blood pressure 152/54, heart rate 81, respiratory rate 17, temperature 99, O2 saturation 95% on room air. GENERAL: The patient is awake, comfortable, not in distress. HEENT: Pinkish conjunctivae. Anicteric sclerae. No neck mass. No carotid bruits. No JVD. Decreased right visual acuity. LUNGS: Clear breath sounds. No wheezing. No crackles. HEART: Normal sinus rhythm. No murmur. No gallops. No rubs. ABDOMEN: Globular, soft, nontender. No masses. EXTREMITIES: No edema. No deformities. MEDICATIONS: Medications of September 14, 2020, reviewed. LABORATORY DATA: Laboratories of September 14, 2020; white count 4.9, hemoglobin 11.9. Sodium 139, potassium 3.9, chloride 96, carbon dioxide 18, BUN 29, creatinine 5.33, calcium 8.1, glucose 191. ASSESSMENT AND PLAN: 1. Uremia-the patient receiving another consecutive hemodialysis. I plan to do a 3-hour hemodialysis with fluid removal only as tolerated. Please note, the asterixis is much improved today. She has also been started back on her phosphate binders. 2. We will again reschedule her for another hemodialysis in a.m. Recheck CBC, basic metabolic profile in a.m. Job ID: [id number]
[2020-09-14] MEDS ORDERED: Lorazepam 2 MG/ML VIAL SLOW IVP SCH ×2 (09:30→10:00)
[2020-09-14 11:42] LABS: SARS-CoV-2 MS2 Positive; SARS-CoV-2 N Gene Negative; SARS-CoV-2 S Gene Negative; SARS-CoV-2 by NAA Not Detected (NotDetected); SARS-CoV-2 orf1ab Negative
--- NOTE | 2020-09-14 12:38 | PDOC.HOSPP ---
- Subjective Encounter Date: 09/14/20 Encounter Time: 10:00 Subjective: is getting HD, no sob awakens and responds well to verbal stimuli is moving all extremities slowly - Objective Vital Signs & Weight: Vital Signs (12 hours) Temp Pulse Resp BP Pulse Ox 09/14/20 11:00 97.8 F 77 12 188/82 H 98 09/14/20 07:35 99.0 F 81 17 152/54 H 95 09/14/20 04:00 99.9 F H 82 16 136/55 L 100 Weight Weight 93 lb 1.6 oz I&O: 09/13/20 09/14/20 09/15/20 06:59 06:59 06:59 Intake Total 0 Balance 0 Result Diagrams: 09/14/20 04:44 09/14/20 04:44 Additional Labs: Accuchecks 09/14/20 09/14/20 09/13/20 12:12 06:18 22:15 POC Glucose 105 H 198 H 196 H 09/13/20 16:07 POC Glucose 110 H Hospitalist ROS - Medication Medications: Active Medications Generic Name Dose Route Start Last Admin Trade Name Freq PRN Reason Stop Dose Admin Metoprolol Succinate 50 mg 09/14/20 09:00 09/14/20 12:07 Metoprolol Succinate Xl 50 Mg Tab PO 50 mg DAILY MEGAN Administration Pantoprazole Sodium 40 mg 09/14/20 09:00 09/14/20 12:07 Pantoprazole 40 Mg Tab PO 40 mg DAILY MEGAN Administration Sevelamer Carbonate 1,600 mg 09/13/20 17:00 09/14/20 12:09 Sevelamer Carbonate 800 Mg Tab PO 1,600 mg TID- MEGAN Administration - Exam Eye: anicteric sclera ENT: no oropharyngeal lesions, moist mucosa Neck: supple, no JVD Heart: RRR, no murmur Respiratory: no wheezes, no rales Gastrointestinal: soft, non-tender, non-distended, normal bowel sounds Extremities: no cyanosis, no edema Neurological: cranial nerve grossly intact, no focal deficits Hosp A/P (1) Hyperkalemia Code(s): E87.5 - HYPERKALEMIA Status: Resolved (2) Volume overload Code(s): E87.70 - FLUID OVERLOAD, UNSPECIFIED Status: Resolved (3) DM type 1 (diabetes mellitus, type 1) Status: Chronic Qualifiers: Diabetes mellitus complication status: with kidney complications Diabetes mellitus complication detail: with chronic kidney disease Chronic kidney disease stage: on chronic dialysis Qualified Code(s): E10.22 - Type 1 diabetes mellitus with diabetic chronic kidney disease; N18.6 - End stage renal disease; Z99.2 - Dependence on renal dialysis (4) Glaucoma Code(s): H40.9 - UNSPECIFIED GLAUCOMA Status: Chronic Qualifiers: Glaucoma type: unspecified (5) Anemia of renal disease Code(s): D63.1 - ANEMIA IN CHRONIC KIDNEY DISEASE Status: Chronic (6) Depression Code(s): F32.9 - MAJOR DEPRESSIVE DISORDER, SINGLE EPISODE, UNSPECIFIED Status: Chronic Qualifiers: Depression Type: unspecified Qualified Code(s): F32.9 - Major depressive disorder, single episode, unspecified (7) Dyslipidemia Code(s): E78.5 - HYPERLIPIDEMIA, UNSPECIFIED Status: Chronic (8) ESRD (end stage renal disease) on dialysis Code(s): N18.6 - END STAGE RENAL DISEASE; Z99.2 - DEPENDENCE ON RENAL DIALYSIS Status: Chronic (9) Hypertension Code(s): I10 - ESSENTIAL (PRIMARY) HYPERTENSION Status: Chronic Qualifiers: Hypertension type: essential hypertension Qualified Code(s): I10 - Essential (primary) hypertension (10) Protein-calorie malnutrition, severe Code(s): E43 - UNSPECIFIED SEVERE PROTEIN-CALORIE MALNUTRITION Status: Chronic (11) Acute metabolic encephalopathy Code(s): G93.41 - METABOLIC ENCEPHALOPATHY Status: Resolved - Plan has had back to back HD hemostable dc plan in am back to [facility] continue home meds as above poor prognosis, wants to be full code
--- NOTE | 2020-09-14 13:12 | CON ---
NEUROLOGY CONSULTATION DATE OF CONSULTATION: 09/14/2020 REASON FOR CONSULTATION: Altered mental status. HISTORY OF PRESENT ILLNESS: Ms. Thao is a 44-year-old female with end-stage renal disease, on hemodialysis; gastroesophageal reflux disease; chronic thrombocytopenia; diabetes; presented to the hospital from a residential due to generalized weakness and confusion. The history is obtained from the medical records since the patient is a poor historian and unable to provide the history. Per records, the patient has not received the last three dialysis session, and in the emergency room, she was hyperkalemic with EKG changes and also she had an episode of confusion with twitching with a concern about seizure activity. She was given Ativan 2 mg IV and was loaded with fosphenytoin 1 g IV, which aborted the abnormal seizure activity. Currently, the patient is back to her baseline and is able to answer simple questions. She was also given albuterol, calcium chloride, sodium bicarbonate, and insulin. In the emergency room, she also underwent emergent hemodialysis yesterday and was seen by Dr. Justin Hannon, the automobile locator. The patient denies nausea, vomiting, headache, chest pain, abdominal pain, focal weakness, focal paresthesias, problems with swallowing or speech associated with the episode. REVIEW OF SYSTEMS: All systems were reviewed and were negative except the pertinent positives and negatives mentioned in the HPI. ALLERGIES: NO KNOWN DRUG ALLERGIES. HOME MEDICATIONS: 1. Hydralazine. 2. Tylenol. 3. Imodium. 5. Insulin sliding scale. 6. Lantus insulin. 7. Metoprolol. 8. Pantoprazole. 9. Acetazolamide. 10. Timoptic eyedrops. 11. Dorzolamide. 12. Brimonidine. 13. Gabapentin. 14. Melatonin. 15. Atropine. 16. Amlodipine. 17. Zofran. 18. Zoloft. PAST MEDICAL HISTORY: End-stage renal disease, on hemodialysis; diabetes mellitus; hypertension; GERD; legally blind; chronic thrombocytopenia. SURGICAL HISTORY: Eye surgery. FAMILY HISTORY: Significant for coronary artery disease. SOCIAL HISTORY: The patient lives in a residential facility. Vital Signs & Weight: Vital Signs (12 hours) Temp Pulse Resp BP Pulse Ox 09/14/20 11:00 97.8 F 77 12 188/82 H 98 09/14/20 07:35 99.0 F 81 17 152/54 H 95 09/14/20 04:00 99.9 F H 82 16 136/55 L 100 Weight Weight 93 lb 1.6 oz I&O: 09/13/20 09/14/20 09/15/20 06:59 06:59 06:59 Intake Total 0 Balance 0 Additional Labs: Accuchecks 09/14/20 09/14/20 09/13/20 12:12 06:18 22:15 POC Glucose 105 H 198 H 196 H 09/13/20 16:07 POC Glucose 110 H Active Medications Generic Name Dose Route Start Last Admin Trade Name Freq PRN Reason Stop Dose Admin Metoprolol Succinate 50 mg 09/14/20 09:00 09/14/20 12:07 Metoprolol Succinate Xl 50 Mg Tab PO 50 mg DAILY MEGAN Administration Pantoprazole Sodium 40 mg 09/14/20 09:00 09/14/20 12:07 Pantoprazole 40 Mg Tab PO 40 mg DAILY MEGAN Administration Sevelamer Carbonate 1,600 mg 09/13/20 17:00 09/14/20 12:09 Sevelamer Carbonate 800 Mg Tab PO 1,600 mg TID-WM MEGAN Administration PHYSICAL EXAMINATION: GENERAL: Alert and awake female, who refused to answer questions, but she is alert and oriented to person, place, and time. She follows commands intermittently. CVS: Regular rate and rhythm. CHEST: Clear. ABDOMEN: Soft. NECK: Supple. NEUROLOGIC: Mental status, the patient is alert and oriented to person, place, and time. Speech is clear. Motor, muscle tone and bulk are normal. Moving all 4 extremities equally and symmetrically. Sensory, withdraws to nailbed pressure bilaterally. Cerebellar, did not cooperate with the exam. Cranial nerves 2 through 12 are intact. Gait deferred due to the patient's safety reasons. Legally blind. DATA REVIEWED: I reviewed the labs, which were significant for prolonged QT interval and she had peaked T-waves. ASSESSMENT AND PLAN: (1) Hyperkalemia Code(s): E87.5 - HYPERKALEMIA Status: Resolved (2) Volume overload Code(s): E87.70 - FLUID OVERLOAD, UNSPECIFIED Status: Resolved (3) DM type 1 (diabetes mellitus, type 1) Status: Chronic Qualifiers: Diabetes mellitus complication status: with kidney complications Diabetes mellitus complication detail: with chronic kidney disease Chronic kidney disease stage: on chronic dialysis Qualified Code(s): E10.22 - Type 1 diabetes mellitus with diabetic chronic kidney disease; N18.6 - End stage renal disease; Z99.2 - Dependence on renal dialysis (4) Glaucoma Code(s): H40.9 - UNSPECIFIED GLAUCOMA Status: Chronic Qualifiers: Glaucoma type: unspecified (5) Anemia of renal disease Code(s): D63.1 - ANEMIA IN CHRONIC KIDNEY DISEASE Status: Chronic (6) Depression Code(s): F32.9 - MAJOR DEPRESSIVE DISORDER, SINGLE EPISODE, UNSPECIFIED Status: Chronic Qualifiers: Depression Type: unspecified Qualified Code(s): F32.9 - Major depressive disorder, single episode, unspecified (7) Dyslipidemia Code(s): E78.5 - HYPERLIPIDEMIA, UNSPECIFIED Status: Chronic (8) ESRD (end stage renal disease) on dialysis Code(s): N18.6 - END STAGE RENAL DISEASE; Z99.2 - DEPENDENCE ON RENAL DIALYSIS Status: Chronic (9) Hypertension Code(s): I10 - ESSENTIAL (PRIMARY) HYPERTENSION Status: Chronic Qualifiers: Hypertension type: essential hypertension Qualified Code(s): I10 - Essential (primary) hypertension (10) Protein-calorie malnutrition, severe Code(s): E43 - UNSPECIFIED SEVERE PROTEIN-CALORIE MALNUTRITION Status: Chronic (11) Acute metabolic encephalopathy Code(s): G93.41 - METABOLIC ENCEPHALOPATHY Status: Resolved Ms. Winsome Thao is a 44-year-old female with end-stage renal disease, presented with altered mental status and an episode of unresponsiveness with seizure-like activity, most likely provoked seizure in the setting of metabolic etiology including hyperkalemia, uremia, severe metabolic acidosis and hyperglycemia due to missing several sessions of dialysis. The patient underwent emergent dialysis yesterday and is currently undergoing dialysis. She seems much better and is back to her baseline. Per review of the records, it seems like she does have history of seizure disorder and is on Keppra . Continue Keppra We will arrange for EEG to see the extent of interictal epileptiform discharges or cortical irritability. Observe seizure precautions. Neuro checks every 4 hours. Continue home medications. Continue medical management per primary team and Nephrology. PT/OT/speech. We will continue to follow. Thank you for the consult. Job ID: [id number] [facility]
[2020-09-14] MEDS: Dorzolamide HCl 2% Ophth Soln 10 ml Bottle L EYE SCH ×2 (15:22→21:18)
[2020-09-14] MEDS: Brimonidine Tartrate 0.2% Ophth Soln 5 ml Bottle L EYE SCH ×2 (15:23→21:17)
[2020-09-14] MEDS: prednisoLONE 1% Ophth Susp 5 ml Bottle L EYE SCH ×2 (15:23→21:18)
[2020-09-14] MEDS: Timolol 0.5% Ophth Soln 5 ml Bottle L EYE SCH ×2 (15:23→21:38)
[2020-09-14] MEDS: Labetalol HCl 100 MG/20 ML VIAL SLOW IVP PRN (15:37)
[2020-09-14] MEDS: Calcium Acetate 667 MG CAP PO SCH (15:39)
--- NOTE | 2020-09-14 17:31 | PDOC.EEG ---
Neurology EEG Report - Report Report: This EEG was performed using 24 channel Koru video digital EEG machine with 24 disc electrodes. Digital analysis of the EEG was done for Jeffrey and seizure detection which revealed no abnormalities. Background: The posterior background rhythm was not observed. Photic stimulation: No response seen with photic stimulation. Hyperventilation: Not performed. Sleep: No stage change was observed. EEG diagnosis: Generalized irregular theta activity seen throughout the recording. Absence of posterior background rhythm. Clinical interpretation: This EEG is consistent with moderate generalized nonspecific cerebral dysfunction.
[2020-09-14] MEDS: Ondansetron PF 4 MG/2 ML Vial IVP PRN (21:21)
[2020-09-14] MEDS: Atropine Sulfate 1% Ophth Soln 5 ml Bottle L EYE SCH (21:23)
[2020-09-14] MEDS: levETIRAcetam 500 MG TAB PO SCH (21:40)
[2020-09-14] MEDS: Gabapentin 300 MG CAP PO SCH ×2 (21:40→21:48)
[2020-09-14] MEDS: Lactinex Tablet PO SCH (21:40)
[2020-09-15] MEDS: Labetalol HCl 100 MG/20 ML VIAL SLOW IVP PRN ×3 (03:25→16:55)
[2020-09-15] MEDS: Ondansetron PF 4 MG/2 ML Vial IVP PRN ×2 (04:24→11:58)
[2020-09-15 04:37] LABS: #Eosinphils 0.4 thou/uL (0.0-0.7); #Lymphocytes 0.9 thou/uL (1.20-3.40); #Monocytes 0.4 thou/uL (0.11-0.59); #Neutrophils 1.3 thou/uL (1.40-6.50); %Basophils 1.1 % (0.0-1.0); %Eosinophils 12.6 % (0.0-10.0); %Lymphocytes 29.4 % (21.0-51.0); %Monocytes 13.8 % (0.0-10.0); Hemoglobin 12.2 g/dL (12.0-16.0); Mean Corpuscular HGB CONC 32.7 g/dL (32.0-36.0); Mean Corpuscular Hemoglobin 27.8 pg (27.0-31.0); Mean Corpuscular Volume 84.8 fL (78.0-98.0); Mean Platelet Volume 7.2 fL (7.4-10.4); Platelet Count 61 thou/uL (130-400); RBC Distribution Width 14.9 % (11.5-14.5); White Blood Cell (WBC) Count 2.9 thou/uL (4.8-10.8)
[2020-09-15 04:53] LABS: Anion Gap 22 mmol/L (10-20); BUN (Urea Nitrogen) 16 mg/dL (7.0-18.7); Calc. Creatinine Clearance 16 mL/min (70-130); Calcium 8.5 mg/dL (7.8-10.44); Carbon Dioxide 21 mmol/L (22-29); Chloride 97 mmol/L (98-107); Estimated GFR-MDRD 16; Glucose 228 mg/dL (70-105); Potassium 3.6 mmol/L (3.5-5.1); Sodium 136 mmol/L (136-145)
[2020-09-15] MEDS: Amlodipine 10 MG TAB PO SCH (08:11)
--- NOTE | 2020-09-15 08:58 | PRG ---
DATE OF SERVICE: 09/15/2020 SUBJECTIVE: Ms. Thao is a 44-year-old female with ESRD and was admitted for uremia due to missed hemodialysis sessions. We are following her up for management of her ESRD. She is currently undergoing hemodialysis. We are doing consecutive dialysis with this patient due to her uremic signs and symptoms. This morning, she is feeling better. Her tremors/asterixis is decreased. OBJECTIVE: VITAL SIGNS: Blood pressure is 227/103 - before BP medications, heart rate 69, respiratory rate 20 temperature 97.2, and O2 saturation 100% on room air. GENERAL: The patient is awake, comfortable, arousable, not in distress. SKIN: Adequate turgor. HEENT: Pinkish conjunctivae. Anicteric sclerae. Decreased visual activity in right eye. NECK: No neck mass. No carotid bruits. No JVD. LUNGS: Clear breath sounds. No wheezing. No crackles. HEART: Normal sinus rhythm. No murmur. No gallops. No rubs. ABDOMEN: Globular, soft, and nontender. No masses. EXTREMITIES: No edema. MEDICATIONS: Of September 15, 2020, reviewed. LABORATORY DATA: Laboratories of September 15, 2020; white count 2.9, hemoglobin 12.2. Sodium 136, potassium 3.6, chloride 97, carbon dioxide 21, BUN 16, creatinine 3.09, and calcium is 8.5. ASSESSMENT AND PLAN: 1. End-stage renal disease/uremia - clinically improving with daily dialysis. She is currently undergoing hemodialysis. We are attempting a 2 L fluid removal as tolerated by the patient. 2. Asterixis/uremia - much improved with dialysis. She has also been started on antiseizure medication. Recheck CBC and basic metabolic panel in a.m. Job ID: [id number]
[2020-09-15] MEDS ORDERED: Prevnar 13-Val Conj/PF 0.5 ML SYRINGE IM ONE (09:00)
[2020-09-15] MEDS ORDERED: FLU VACC QS2020-21(6MOS UP)/PF 60 MCG/0.5 ML SYRINGE IM ONE (09:00)
[2020-09-15] MEDS ORDERED: hydrALAZINE 25 MG TAB PO SCH ×2 (11:33→15:00)
[2020-09-15] MEDS: Brimonidine Tartrate 0.2% Ophth Soln 5 ml Bottle L EYE SCH ×3 (11:58→21:44)
[2020-09-15] MEDS: Timolol 0.5% Ophth Soln 5 ml Bottle L EYE SCH ×3 (11:59→21:43)
[2020-09-15] MEDS: Dorzolamide HCl 2% Ophth Soln 10 ml Bottle L EYE SCH ×3 (11:59→21:44)
[2020-09-15] MEDS: Atropine Sulfate 1% Ophth Soln 5 ml Bottle L EYE SCH ×2 (11:59→21:44)
[2020-09-15] MEDS: prednisoLONE 1% Ophth Susp 5 ml Bottle L EYE SCH ×3 (11:59→21:43)
--- NOTE | 2020-09-15 12:04 | PDOC.NEUPN ---
- Subjective Encounter Date: 09/15/20 Subjective: Alert and oriented to person and place and undergoing hemodialysis this morning. No further seizure activity reported since admission. - Objective Vital Signs & Weight: Vital Signs (12 hours) Temp Pulse Resp BP BP Pulse Ox 09/15/20 08:11 74 09/15/20 07:30 97.2 F L 69 20 227/103 H 100 09/15/20 04:18 162/74 H Weight Weight 93 lb 1.6 oz I&O: 09/14/20 09/15/20 09/16/20 06:59 06:59 06:59 Intake Total 0 Balance 0 Result Diagrams: 09/15/20 04:19 09/15/20 04:19 Additional Labs: Accuchecks 09/15/20 09/15/20 09/14/20 10:28 05:51 22:17 POC Glucose 106 H 207 H 240 H 09/14/20 09/14/20 16:29 12:12 POC Glucose 175 H 105 H Radiology Reviewed by me: Yes EKG Reviewed by me: Yes ROS - Review of Systems Constitutional: denies: fever, chills, sweats, weakness, malaise, other Eyes: denies: pain, vision change, conjunctivae inflammation, eyelid inflammation, redness, other Gastrointestinal: denies: nausea, vomiting, abdominal pain, diarrhea, co nstipation, melena, hematochezia, other Neurological: reports: weakness. denies: numbness, incoordination, change in speech, confusion, seizures, other - Medication Medications: Active Medications Generic Name Dose Route Start Last Admin Trade Name Freq PRN Reason Stop Dose Admin Acidophilus 1 tab 09/14/20 21:00 09/14/20 21:40 Lactinex Tablet PO 1 tab BID MEGAN Administration Amlodipine Besylate 10 mg 09/15/20 09:00 09/15/20 08:11 Amlodipine 10 Mg Tab PO 10 mg DAILY MEGAN Administration Atropine Sulfate 1 drop 09/14/20 21:00 09/14/20 21:23 Atropine Sulfate 1% Ophth Soln 5 Ml Bottle L EYE 1 drop BID MEGAN Administration Brimonidine Tartrate 1 drop 09/14/20 15:00 09/14/20 21:17 Brimonidine Tartrate 0.2% Ophth Soln 5 Ml Bottle L EYE 1 drop TID MEGAN Administration Calcium Acetate 667 mg 09/14/20 17:00 09/14/20 15:39 Calcium Acetate 667 Mg Cap PO 667 mg TID-WM MEGAN Administration Dorzolamide HCl 1 drop 09/14/20 15:00 09/14/20 21:18 Dorzolamide Hcl 2% Ophth Soln 10 Ml Bottle L EYE 1 drop TID MEGAN Administration Gabapentin 300 mg 09/14/20 21:00 09/14/20 21:48 Gabapentin 300 Mg Cap PO Not Given BID MEGAN Insulin Human Lispro 0 units 09/13/20 12:30 09/15/20 06:21 Humalog 300 Units/3 Ml Vial SC 3 unit .MILD SLIDING SCALE PRN Administration Mild Correctional Scale Labetalol HCl 10 mg 09/13/20 18:41 09/15/20 03:25 Labetalol Hcl 100 Mg/20 Ml Vial SLOW IVP 10 mg Q4H PRN Administration SBP Greater Than 180 Levetiracetam 500 mg 09/14/20 21:00 09/14/20 21:40 Levetiracetam 500 Mg Tab PO 500 mg BID MEGAN Administration Metoprolol Succinate 50 mg 09/14/20 09:00 09/15/20 08:12 Metoprolol Succinate Xl 50 Mg Tab PO 50 mg DAILY MEGAN Administration Ondansetron HCl 4 mg 09/14/20 20:34 09/15/20 04:24 Ondansetron Pf 4 Mg/2 Ml Vial IVP 4 mg Q6H PRN Administration Nausea/Vomiting Pantoprazole Sodium 40 mg 09/14/20 09:00 09/14/20 12:07 Pantoprazole 40 Mg Tab PO 40 mg DAILY MEGAN Administration Prednisolone Acetate 1 drop 09/14/20 15:00 09/14/20 21:18 Prednisolone 1% Ophth Susp 5 Ml Bottle L EYE 1 drop TID MEGAN Administration Sevelamer Carbonate 1,600 mg 09/13/20 17:00 09/14/20 15:39 Sevelamer Carbonate 800 Mg Tab PO 1,600 mg TID-WM MEGAN Administration Timolol Maleate 1 drop 09/14/20 15:00 09/14/20 21:38 Timolol 0.5% Ophth Soln 5 Ml Bottle L EYE 1 drop TID MEGAN Administration - Exam General Appearance: NAD Eye: PERRL ENT: normocephalic atraumatic Neck: supple Respiratory: CTAB Cardiovascular: RRR Gastrointestinal: soft Extremities: no cyanosis Skin: normal turgor Neurological: no focal deficits, no new deficit Musculoskeletal: generalized weakness PSYCH: oriented to person, oriented to place, somnolent Results - Labs Result Diagrams: 09/15/20 04:19 09/15/20 04:19 Lab results: WBC 2.9 thou/uL (4.8-10.8) L 09/15/20 04:19 Hgb 12.2 g/dL (12.0-16.0) 09/15/20 04:19 Hct 37.3 % (36.0-47.0) 09/15/20 04:19 MCV 84.8 fL (78.0-98.0) 09/15/20 04:19 Plt Count 61 thou/uL (130-400) L 09/15/20 04:19 Neutrophils % 43.0 % (42.0-75.0) 09/15/20 04:19 Sodium 136 mmol/L (136-145) 09/15/20 04:19 Potassium 3.6 mmol/L (3.5-5.1) 09/15/20 04:19 Chloride 97 mmol/L (98-107) L 09/15/20 04:19 Carbon Dioxide 21 mmol/L (22-29) L 09/15/20 04:19 BUN 16 mg/dL (7.0-18.7) 09/15/20 04:19 Creatinine 3.09 mg/dL (0.6-1.1) H 09/15/20 04:19 Glucose 228 mg/dL (70-105) H 09/15/20 04:19 Calcium 8.5 mg/dL (7.8-10.44) 09/15/20 04:19 Total Bilirubin 0.8 mg/dL (0.2-1.2) 09/13/20 17:39 AST 14 U/L (5-34) 09/13/20 17:39 ALT Less than 7 U/L (8-55) L 09/13/20 17:39 Alkaline Phosphatase 159 U/L (40-110) H 09/13/20 17:39 Ammonia 25 umol/L (18-72) 09/13/20 17:39 Troponin I 0.321 ng/mL (< 0.028) H* 09/13/20 17:39 Serum Total Protein 6.9 g/dL (6.0-8.3) 09/13/20 17:39 Albumin 3.9 g/dL (3.5-5.0) 09/13/20 17:39 PN A/P (1) Seizure-like activity Code(s): R56.9 - UNSPECIFIED CONVULSIONS Status: Acute (2) DM type 1 (diabetes mellitus, type 1) Status: Chronic Qualifiers: Diabetes mellitus complication status: with kidney complications Diabetes mellitus complication detail: with chronic kidney disease Chronic kidney disease stage: on chronic dialysis Qualified Code(s): E10.22 - Type 1 diabetes mellitus with diabetic chronic kidney disease; N18.6 - End stage renal disease; Z99.2 - Dependence on renal dialysis (3) Hyperkalemia Code(s): E87.5 - HYPERKALEMIA Status: Resolved (4) Volume overload Code(s): E87.70 - FLUID OVERLOAD, UNSPECIFIED Status: Resolved (5) Hyperkalemia Code(s): E87.5 - HYPERKALEMIA Status: Acute (6) Anemia of renal disease Code(s): D63.1 - ANEMIA IN CHRONIC KIDNEY DISEASE Status: Chronic (7) Depression Code(s): F32.9 - MAJOR DEPRESSIVE DISORDER, SINGLE EPISODE, UNSPECIFIED Status: Chronic Qualifiers: Depression Type: unspecified Qualified Code(s): F32.9 - Major depressive disorder, single episode, unspecified (8) Diabetes type 1, uncontrolled Code(s): E10.65 - TYPE 1 DIABETES MELLITUS WITH HYPERGLYCEMIA Status: Chronic (9) Dyslipidemia Code(s): E78.5 - HYPERLIPIDEMIA, UNSPECIFIED Status: Chronic (10) ESRD (end stage renal disease) on dialysis Code(s): N18.6 - END STAGE RENAL DISEASE; Z99.2 - DEPENDENCE ON RENAL DIALYSIS Status: Chronic (11) Hypertension Code(s): I10 - ESSENTIAL (PRIMARY) HYPERTENSION Status: Chronic Qualifiers: Hypertension type: essential hypertension Qualified Code(s): I10 - Essential (primary) hypertension (12) Secondary hyperparathyroidism of renal origin Code(s): N25.81 - SECONDARY HYPERPARATHYROIDISM OF RENAL ORIGIN Status: Chronic (13) Acute metabolic encephalopathy Code(s): G93.41 - METABOLIC ENCEPHALOPATHY Status: Resolved - Plan Daily Plan: PT/OT, speech therapy, DVT proph w/SCDs 44-year-old female with history of end-stage renal disease on hemodialysis, hypertension, dyslipidemia, presented with the seizure-like activity with alter ed mental status in the emergency room in the setting of metabolic abnormalities due to missing several sessions of hemodialysis. Patient was given Ativan and fosphenytoin which resolved abnormal seizure-like activity. No further seizures since admission. Patient somnolent but awakens easily and knows her name and place. Head CT reviewed which was negative for acute intracranial pathology. EEG reviewed which was negative for acute seizure activity. Neurochecks every 4 hours. Ativan 2 mg IV for seizure greater than 2 minutes. Continue home dose of Keppra. Continue home medications. Continue medical management per primary team. PT/OT/speech Plan discussed during the MDR rounds.
[2020-09-15] MEDS: Calcium Acetate 667 MG CAP PO SCH ×3 (13:47→18:09)
[2020-09-15] MEDS: Sevelamer Carbonate 800 MG TAB PO SCH ×3 (13:47→18:09)
[2020-09-15] MEDS: Insulin Glargine 14 UNITS in Pre-Filled Syringe 1 EACH SC SCH (13:48)
[2020-09-15] MEDS: Lactinex Tablet PO SCH ×2 (13:52→21:52)
[2020-09-15] MEDS: Gabapentin 300 MG CAP PO SCH ×2 (13:52→21:51)
[2020-09-15] MEDS: levETIRAcetam 500 MG TAB PO SCH ×2 (15:24→21:46)
[2020-09-15] MEDS ORDERED: Metoclopramide HCl 10 MG/2 ML VIAL IVP PRN (15:33)
[2020-09-16] MEDS: hydrALAZINE 25 MG TAB PO SCH ×2 (00:41→09:26)
[2020-09-16 05:30] LABS: #Eosinphils 0.5 thou/uL (0.0-0.7); #Lymphocytes 1.1 thou/uL (1.20-3.40); #Monocytes 0.4 thou/uL (0.11-0.59); #Neutrophils 1.7 thou/uL (1.40-6.50); %Basophils 1.1 % (0.0-1.0); %Eosinophils 12.9 % (0.0-10.0); %Lymphocytes 28.5 % (21.0-51.0); %Monocytes 11.3 % (0.0-10.0); %Neutrophils 46.2 % (42.0-75.0); Hemoglobin 14.2 g/dL (12.0-16.0); Mean Corpuscular Hemoglobin 28.4 pg (27.0-31.0); Mean Platelet Volume 7.6 fL (7.4-10.4); Platelet Count 69 thou/uL (130-400); RBC Distribution Width 14.9 % (11.5-14.5); Red Blood Cell (RBC) Count 5.01 mill/uL (4.20-5.40); White Blood Cell (WBC) Count 3.8 thou/uL (4.8-10.8)
[2020-09-16 05:33] LABS: Anion Gap 28 mmol/L (10-20); BUN (Urea Nitrogen) 16 mg/dL (7.0-18.7); Calc. Creatinine Clearance 16 mL/min (70-130); Calcium 8.7 mg/dL (7.8-10.44); Carbon Dioxide 15 mmol/L (22-29); Chloride 97 mmol/L (98-107); Estimated GFR-MDRD 17; Glucose 163 mg/dL (70-105); Potassium 3.6 mmol/L (3.5-5.1); Sodium 136 mmol/L (136-145)
[2020-09-16 07:47] VITALS: BP 110/73; TEMP 97.5
--- NOTE | 2020-09-16 08:28 | PRG ---
DATE OF SERVICE: 09/16/2020 SUBJECTIVE: Ms. Thao is a 44-year-old female with ESRD and currently on maintenance hemodialysis. She was admitted due to symptoms of uremia. She was having persistent asterixis. She was also treated for possible seizure activity. An EEG was done, which showed a nonspecific cerebral dysfunction. She is being followed by Neurology. This morning, she is feeling better. Last night, blood pressure was noted to be on the high side. The patient voices no new complaints. No chest pain or shortness of breath. OBJECTIVE: VITAL SIGNS: Blood pressure 110/73 with a heart rate of 70, respiratory rate 14, temperature 97.5, and O2 saturation was noted at 100% on room air. GENERAL: Awake and comfortable, not in distress. SKIN: Adequate turgor. HEENT: She has pinkish conjunctivae. Anicteric sclerae. Decreased visual activity in right eye/blind. NECK: No neck mass. No carotid bruits. No JVD. LUNGS: Clear breath sounds. HEART: Normal sinus rhythm. No murmur. No gallops. No rubs. ABDOMEN: Globular, soft, and nontender. No masses. EXTREMITIES: No edema. No deformities. MEDICATIONS: Medications of September 16, 2020, reviewed. LABORATORY DATA: Laboratories of September 16, 2020; white count 3.8, hemoglobin 14.2. Sodium 136, potassium 3.6, chloride 97, carbon dioxide 15, BUN 16, creatinine 3.07, and calcium 8.7. On September 14, 2020, EEG shows moderate generalized nonspecific cerebral dysfunction. No evidence of seizure. ASSESSMENT AND PLAN: 1. Uremia-clinically much improved. The shakings are reflection of asterixis, which could be related for her being under dialyzed due to the fact the patient was refused to go for dialysis for about a week. Clinically much improved. 2. End-stage renal disease, continuing Sunday, Sunday, and Sunday hemodialysis regimen. Fluid removal only as tolerated. There is no indication for any emergent hemodialysis with this patient. 3. Hypertension, stable. Continue current BP medications. 4. Agree with current management, possible discharge today. Job ID: [id number]
[2020-09-16] MEDS: Timolol 0.5% Ophth Soln 5 ml Bottle L EYE SCH (09:20)
[2020-09-16] MEDS: levETIRAcetam 500 MG TAB PO SCH (09:25)
[2020-09-16] MEDS: Amlodipine 10 MG TAB PO SCH (09:26)
[2020-09-16] MEDS: Gabapentin 300 MG CAP PO SCH (09:27)
[2020-09-16] MEDS: Atropine Sulfate 1% Ophth Soln 5 ml Bottle L EYE SCH (09:29)
[2020-09-16] MEDS: Insulin Glargine 14 UNITS in Pre-Filled Syringe 1 EACH SC SCH (09:29)
[2020-09-16] MEDS: Lactinex Tablet PO SCH (09:32)
[2020-09-16] MEDS: Sevelamer Carbonate 800 MG TAB PO SCH (09:32)
[2020-09-16] MEDS: Calcium Acetate 667 MG CAP PO SCH (09:32)
[2020-09-16] MEDS: Brimonidine Tartrate 0.2% Ophth Soln 5 ml Bottle L EYE SCH (09:35)
[2020-09-16] MEDS: prednisoLONE 1% Ophth Susp 5 ml Bottle L EYE SCH (09:40)
[2020-09-16] MEDS: Dorzolamide HCl 2% Ophth Soln 10 ml Bottle L EYE SCH (09:46)
--- NOTE | 2020-09-16 12:32 | PDOC.NEUPN ---
- Subjective Encounter Date: 09/16/20 Subjective: Patient alert and awake and back to her baseline. She denies any new co mplaints. No further seizures since admission - Objective Vital Signs & Weight: Vital Signs (12 hours) Temp Pulse Resp BP Pulse Ox 09/16/20 09:16 100 09/16/20 07:47 97.5 F L 70 14 110/73 100 Weight Admit Weight 93 lb 1.6 oz Weight 93 lb 1.6 oz I&O: 09/15/20 09/16/20 09/17/20 06:59 06:59 06:59 Intake Total 0 80 Output Total 1600 Balance 0 -1520 Result Diagrams: 09/16/20 04:56 09/16/20 04:56 Additional Labs: Accuchecks 09/16/20 09/16/20 09/15/20 10:41 05:33 21:42 POC Glucose 227 H 150 H 167 H 09/15/20 16:40 POC Glucose 161 H Radiology Reviewed by me: Yes EKG Reviewed by me: Yes ROS - Review of Systems ROS unobtainable: due to mental status Constitutional: denies: fever, chills, sweats, weakness, malaise, other Eyes: denies: pain, vision change, conjunctivae inflammation, eyelid inflammation, redness, other ENT: denies: ear pain, ear discharge, nose pain, nose discharge, nose congestio n, mouth pain, mouth swelling, throat pain, throat swelling, other Respiratory: denies: cough, dry, shortness of breath, hemoptysis, SOB with excertion, pleuritic pain, sputum, wheezing, other Gastrointestinal: denies: nausea, vomiting, abdominal pain, diarrhea, constipation, melena, hematochezia, other Genitourinary: denies: dysuria, frequency, incontinence, hematuria, retention, other Musculoskeletal: reports: neck pain, shoulder pain, arm pain Neurological: denies: weakness, numbness, incoordination, change in speech, confusion, seizures, other All Systems: All other systems reviewed; all pertinent +/- noted in HPI/Subj Results - Labs Result Diagrams: 09/16/20 04:56 09/16/20 04:56 Lab results: WBC 3.8 thou/uL (4.8-10.8) L 09/16/20 04:56 Hgb 14.2 g/dL (12.0-16.0) 09/16/20 04:56 Hct 43.1 % (36.0-47.0) 09/16/20 04:56 MCV 86.0 fL (78.0-98.0) 09/16/20 04:56 Plt Count 69 thou/uL (130-400) L 09/16/20 04:56 Neutrophils % 46.2 % (42.0-75.0) 09/16/20 04:56 Sodium 136 mmol/L (136-145) 09/16/20 04:56 Potassium 3.6 mmol/L (3.5-5.1) 09/16/20 04:56 Chloride 97 mmol/L (98-107) L 09/16/20 04:56 Carbon Dioxide 15 mmol/L (22-29) L 09/16/20 04:56 BUN 16 mg/dL (7.0-18.7) 09/16/20 04:56 Creatinine 3.07 mg/dL (0.6-1.1) H 09/16/20 04:56 Glucose 163 mg/dL (70-105) H 09/16/20 04:56 Calcium 8.7 mg/dL (7.8-10.44) 09/16/20 04:56 Total Bilirubin 0.8 mg/dL (0.2-1.2) 09/13/20 17:39 AST 14 U/L (5-34) 09/13/20 17:39 ALT Less than 7 U/L (8-55) L 09/13/20 17:39 Alkaline Phosphatase 159 U/L (40-110) H 09/13/20 17:39 Ammonia 25 umol/L (18-72) 09/13/20 17:39 Troponin I 0.321 ng/mL (< 0.028) H* 09/13/20 17:39 Serum Total Protein 6.9 g/dL (6.0-8.3) 09/13/20 17:39 Albumin 3.9 g/dL (3.5-5.0) 09/13/20 17:39 - EKG Interpretation EKG: Normal sinus rhythm - Radiology Interpretation CT scan - head Additional Comment: Head CT did not reveal acute intracranial pathology PN A/P (1) Seizure-like activity Code(s): R56.9 - UNSPECIFIED CONVULSIONS Status: Acute (2) DM type 1 (diabetes mellitus, type 1) Status: Chronic Qualifiers: Diabetes mellitus complication status: with kidney complications Diabetes mellitus complication detail: with chronic kidney disease Chronic kidney disease stage: on chronic dialysis Qualified Code(s): E10.22 - Type 1 diabetes mellitus with diabetic chronic kidney disease; N18.6 - End stage renal disease; Z99.2 - Dependence on renal dialysis (3) Hyperkalemia Code(s): E87.5 - HYPERKALEMIA Status: Resolved (4) Volume overload Code(s): E87.70 - FLUID OVERLOAD, UNSPECIFIED Status: Resolved (5) Hyperkalemia Code(s): E87.5 - HYPERKALEMIA Status: Acute (6) Anemia of renal disease Code(s): D63.1 - ANEMIA IN CHRONIC KIDNEY DISEASE Status: Chronic (7) Depression Code(s): F32.9 - MAJOR DEPRESSIVE DISORDER, SINGLE EPISODE, UNSPECIFIED Status: Chronic Qualifiers: Depression Type: unspecified Qualified Code(s): F32.9 - Major depressive disorder, single episode, unspecified (8) Diabetes type 1, uncontrolled Code(s): E10.65 - TYPE 1 DIABETES MELLITUS WITH HYPERGLYCEMIA Status: Chronic (9) Dyslipidemia Code(s): E78.5 - HYPERLIPIDEMIA, UNSPECIFIED Status: Chronic (10) ESRD (end stage renal disease) on dialysis Code(s): N18.6 - END STAGE RENAL DISEASE; Z99.2 - DEPENDENCE ON RENAL DIALYSIS Status: Chronic (11) Hypertension Code(s): I10 - ESSENTIAL (PRIMARY) HYPERTENSION Status: Chronic Qualifiers: Hypertension type: essential hypertension Qualified Code(s): I10 - Essential (primary) hypertension (12) Secondary hyperparathyroidism of renal origin Code(s): N25.81 - SECONDARY HYPERPARATHYROIDISM OF RENAL ORIGIN Status: Chronic (13) Acute metabolic encephalopathy Code(s): G93.41 - METABOLIC ENCEPHALOPATHY Status: Resolved - Plan Daily Plan: PT/OT, speech therapy, DVT proph w/SCDs 44-year-old female with history of end-stage renal disease on hemodialysis, hypertension, dyslipidemia, presented with the seizure-like activity with altered mental status in the emergency room in the setting of metabolic abnormalities due to missing several sessions of hemodialysis. Patient was given Ativan and fosphenytoin which resolved abnormal seizure-like activity. No further seizures since admission. Patient is alert and awake today and is back to her baseline. Encephalopathy resolved after multiple sessions of dialysis. Head CT reviewed which was negative for acute intracranial pathology. EEG reviewed which was negative for acute seizure activity. Neurochecks every 4 hours. Ativan 2 mg IV for seizure greater than 2 minutes. Continue home dose of Keppra. Continue home medications. Continue medical management per primary team. PT/OT/speech Plan discussed with the patient.
--- NOTE | 2020-09-16 15:25 | PDOC.HOSPP ---
- Subjective Encounter Date: 09/15/20 Encounter Time: 10:00 Subjective: has some nausea, no chest pain or palp - Objective Vital Signs & Weight: Vital Signs (12 hours) Temp Pulse Resp BP Pulse Ox 09/16/20 09:16 100 09/16/20 07:47 97.5 F L 70 14 110/73 100 Weight Admit Weight 93 lb 1.6 oz Weight 93 lb 1.6 oz I&O: 09/15/20 09/16/20 09/17/20 06:59 06:59 06:59 Intake Total 0 80 Output Total 1600 Balance 0 -1520 Result Diagrams: 09/16/20 04:56 09/16/20 04:56 Additional Labs: Accuchecks 09/16/20 09/16/20 09/15/20 10:41 05:33 21:42 POC Glucose 227 H 150 H 167 H 09/15/20 16:40 POC Glucose 161 H - Exam General Appearance: awake alert Eye: anicteric sclera ENT: no oropharyngeal lesions, moist mucosa Neck: supple, no JVD Heart: RRR, no murmur Respiratory: no wheezes, no rales Gastrointestinal: soft, non-tender, non-distended, normal bowel sounds Extremities: no cyanosis, no edema Neurological: cranial nerve grossly intact, no focal deficits Hosp A/P (1) Hyperkalemia Code(s): E87.5 - HYPERKALEMIA Status: Resolved (2) Volume overload Code(s): E87.70 - FLUID OVERLOAD, UNSPECIFIED Status: Resolved (3) DM type 1 (diabetes mellitus, type 1) Status: Chronic Qualifiers: Diabetes mellitus complication status: with kidney complications Diabetes mellitus complication detail: with chronic kidney disease Chronic kidney disease stage: on chronic dialysis Qualified Code(s): E10.22 - Type 1 diabetes mellitus with diabetic chronic kidney disease; N18.6 - End stage renal disease; Z99.2 - Dependence on renal dialysis (4) Glaucoma Code(s): H40.9 - UNSPECIFIED GLAUCOMA Status: Chronic Qualifiers: Glaucoma type: unspecified (5) Anemia of renal disease Code(s): D63.1 - ANEMIA IN CHRONIC KIDNEY DISEASE Status: Chronic (6) Depression Code(s): F32.9 - MAJOR DEPRESSIVE DISORDER, SINGLE EPISODE, UNSPECIFIED Status: Chronic Qualifiers: Depression Type: unspecified Qualified Code(s): F32.9 - Major depressive disorder, single episode, unspecified (7) Dyslipidemia Code(s): E78.5 - HYPERLIPIDEMIA, UNSPECIFIED Status: Chronic (8) ESRD (end stage renal disease) on dialysis Code(s): N18.6 - END STAGE RENAL DISEASE; Z99.2 - DEPENDENCE ON RENAL DIALYSIS Status: Chronic (9) Hypertension Code(s): I10 - ESSENTIAL (PRIMARY) HYPERTENSION Status: Chronic Qualifiers: Hypertension type: essential hypertension Qualified Code(s): I10 - Essential (primary) hypertension (10) Protein-calorie malnutrition, severe Code(s): E43 - UNSPECIFIED SEVERE PROTEIN-CALORIE MALNUTRITION Status: Chronic (11) Acute metabolic encephalopathy Code(s): G93.41 - METABOLIC ENCEPHALOPATHY Status: Resolved - Plan has had back to back HD hemostable dc plan back to [facility] continue home meds as above poor prognosis, wants to be full code
--- NOTE | 2020-09-16 16:28 | PDOC.HOSPP ---
- Subjective Encounter Date: 09/16/20 Encounter Time: 07:45 Subjective: no new complaints says she is eating with no nausea now - Objective Vital Signs & Weight: Vital Signs (12 hours) Temp Pulse Resp BP Pulse Ox 09/16/20 09:16 100 09/16/20 07:47 97.5 F L 70 14 110/73 100 Weight Admit Weight 93 lb 1.6 oz Weight 93 lb 1.6 oz I&O: 09/15/20 09/16/20 09/17/20 06:59 06:59 06:59 Intake Total 0 80 Output Total 1600 Balance 0 -1520 Result Diagrams: 09/16/20 04:56 09/16/20 04:56 Additional Labs: Accuchecks 09/16/20 09/16/20 09/15/20 10:41 05:33 21:42 POC Glucose 227 H 150 H 167 H 09/15/20 16:40 POC Glucose 161 H - Exam General Appearance: awake alert Eye: anicteric sclera ENT: no oropharyngeal lesions, moist mucosa Neck: supple, no JVD Heart: RRR, no murmur Respiratory: no wheezes, no rales Gastrointestinal: soft, non-tender, non-distended, normal bowel sounds Extremities: no cyanosis, no edema Neurological: cranial nerve grossly intact, no focal deficits Psychiatric: A&O x 3 Hosp A/P (1) Hyperkalemia Code(s): E87.5 - HYPERKALEMIA Status: Resolved (2) Volume overload Code(s): E87.70 - FLUID OVERLOAD, UNSPECIFIED Status: Resolved (3) DM type 1 (diabetes mellitus, type 1) Status: Chronic Qualifiers: Diabetes mellitus complication status: with kidney complications Diabetes mellitus complication detail: with chronic kidney disease Chronic kidney disease stage: on chronic dialysis Qualified Code(s): E10.22 - Type 1 diabetes mellitus with diabetic chronic kidney disease; N18.6 - End stage renal disease; Z99.2 - Dependence on renal dialysis (4) Glaucoma Code(s): H40.9 - UNSPECIFIED GLAUCOMA Status: Chronic Qualifiers: Glaucoma type: unspecified (5) Anemia of renal disease Code(s): D63.1 - ANEMIA IN CHRONIC KIDNEY DISEASE Status: Chronic (6) Depression Code(s): F32.9 - MAJOR DEPRESSIVE DISORDER, SINGLE EPISODE, UNSPECIFIED Status: Chronic Qualifiers: Depression Type: unspecified Qualified Code(s): F32.9 - Major depressive disorder, single episode, unspecified (7) Dyslipidemia Code(s): E78.5 - HYPERLIPIDEMIA, UNSPECIFIED Status: Chronic (8) ESRD (end stage renal disease) on dialysis Code(s): N18.6 - END STAGE RENAL DISEASE; Z99.2 - DEPENDENCE ON RENAL DIALYSIS Status: Chronic (9) Hypertension Code(s): I10 - ESSENTIAL (PRIMARY) HYPERTENSION Status: Chronic Qualifiers: Hypertension type: essential hypertension Qualified Code(s): I10 - Essential (primary) hypertension (10) Protein-calorie malnutrition, severe Code(s): E43 - UNSPECIFIED SEVERE PROTEIN-CALORIE MALNUTRITION Status: Chronic (11) Acute metabolic encephalopathy Code(s): G93.41 - METABOLIC ENCEPHALOPATHY Status: Resolved - Plan has had back to back HD hemostable dc plan back to [facility] today she stayed overnight after planned discharge on 09/15 due to high BP which has resolved. continue home meds as above poor prognosis, wants to be full code Please see discharge summary dictated on 09/15/2020.
--- NOTE | 2020-09-17 10:41 | DIS ---
DATE OF ADMISSION: 09/13/2020 DATE OF DISCHARGE: 09/16/2020 DISCHARGE DISPOSITION: [facility]. PRIMARY DISCHARGE DIAGNOSES: 1. Volume overload with uremic symptoms with the patient noncompliant with hemodialysis for three sessions prior to arrival. 2. Hyperkalemia, resolved. SECONDARY DISCHARGE DIAGNOSES: Severe protein-calorie malnutrition, cachexia, diabetes mellitus type 1, history of glaucoma with bilateral blindness, anemia due to renal disease, end-stage renal disease, on hemodialysis, dyslipidemia, depression, hypertension, and initial acute metabolic encephalopathy secondary to uremia, resolved. PROCEDURES DONE DURING HOSPITALIZATION: CT brain without contrast done on the day of admission showed no acute intracranial abnormality. H and H 12 and 37, platelet count 61, which is chronically low, MCV 84, and white count of 3. BUN 16, creatinine 3.0. Discharge potassium of 3.6. Discharge bicarb of 21. The patient had a potassium of 7.4 on the day of admission with a bicarb of less than 8, BUN of 144, and creatinine of 14 on the day of admission. COVID-19 PCR was not detected on 09/13/2020. HBS antigen nonreactive. INPATIENT CONSULTS: 1. Dr. Hannon for Nephrology. 2. Dr. Lau for Neurology. DISCHARGE MEDICATIONS: 1. PhosLo 667 mg p.o. 3 times daily. 2. Humalog sliding scale. 3. Hydralazine 25 mg three times daily. 4. Keppra 500 mg twice daily. 5. Lantus 14 units subcu q.a.m. 6. Melatonin 10 mg p.o. q.h.s. 7. Metoprolol succinate extended release 50 mg daily. 8. Neurontin 300 mg twice daily. 9. Protonix 40 mg daily. 10. Sevelamer three times daily. 11. Zoloft 50 mg daily. 12. Norvasc 10 mg daily. 13. The patient to continue timolol, dorzolamide, brimonidine, and atropine eyedrops as before per her plate inspector's advice. DISCHARGE PLAN: The patient to follow up with her primary care physician, Dr. Brower, in 1 week. BRIEF COURSE DURING HOSPITALIZATION: The patient initially was sent over from group home on for generalized weakness. On arrival, the patient was found to be in uremic encephalopathy. She had hyperkalemia and volume overload due to being noncompliant with hemodialysis for at least three sessions prior to arrival. She has had [id number] hemodialysis done during her stay here. The patient's mental status completely resolved after 1st session of hemodialysis. Ms. Thao is essentially bed bound and does not mobilize herself. She can move all 4 extremities. There was no evidence of CVA clinically. She was counseled with regard to compliance with hemodialysis and medications. The patient likely has underlying gastroparesis and has nausea secondary to that. If needed, Reglan can be instituted at the nursing facility. She is hemodynamically stable, neurologically stable prior to discharge. A total of 35 minutes was spent on discharge plan. Please note, I have seen and examined the patient on the day of discharge. Job ID: [id number]
== END 2020-09-16 12:21 | DRG 640 ==
LOC: ERS 07:32 → ERHOLD 12:35 → 2SE 21:31
PROVIDERS: ADMIT Family Medicine; ATTEND Family Medicine
PROC: 5A1D70Z Performance of Urinary Filtration, Intermittent, Less than 6 Hours Per Day (ICD-10-PCS; principal; 2020-09-13)
DX: E87.5 Hyperkalemia (principal); E43 Unspecified severe protein-calorie malnutrition; G93.41 Metabolic encephalopathy; N18.6 End stage renal disease; Z68.1 Body mass index [BMI] 19.9 or less, adult; R64 Cachexia; I12.0 Hypertensive chronic kidney disease with stage 5 chronic kidney disease or end stage renal disease; N25.81 Secondary hyperparathyroidism of renal origin; Z20.828 Contact with and (suspected) exposure to other viral communicable diseases; E87.70 Fluid overload, unspecified; E10.22 Type 1 diabetes mellitus with diabetic chronic kidney disease; H54.8 Legal blindness, as defined in USA; D63.1 Anemia in chronic kidney disease; E78.5 Hyperlipidemia, unspecified; F32.9 Major depressive disorder, single episode, unspecified; K21.9 Gastro-esophageal reflux disease without esophagitis; D69.6 Thrombocytopenia, unspecified; E87.2 Acidosis; I45.81 Long QT syndrome; E10.43 Type 1 diabetes mellitus with diabetic autonomic (poly)neuropathy; K31.84 Gastroparesis; H40.9 Unspecified glaucoma; E10.65 Type 1 diabetes mellitus with hyperglycemia; G40.909 Epilepsy, unspecified, not intractable, without status epilepticus; Z91.15 Patient's noncompliance with renal dialysis; Z79.899 Other long term (current) drug therapy; Z98.51 Tubal ligation status; Z79.4 Long term (current) use of insulin; Z99.2 Dependence on renal dialysis
CPT/HCPCS: 36415; 36416; 70450; 80048; 80053; 82140; 83735; 84100; 84484; 85025; 87340; 87635; 90935; 93005; 94640; 95816; 95819; 95957; 96374; 96375; G0257; J1815; J2060; J2405; J7611; Q2009; U0003

== ENCOUNTER 2020-09-17 20:19 | Emergency (ER) | payer OTHER ==
[2020-09-17 21:23] LABS: BHCG - Serum Negative (NEGATIVE); Pregs Control Background? CLEAR/WHITE (CLR/WHITE); Pregs Control Bar Appear? YES (CONTROL BAR)
[2020-09-17 21:29] LABS: #Eosinphils 0.6 thou/uL (0.0-0.7); #Lymphocytes 0.8 thou/uL (1.20-3.40); #Monocytes 0.4 thou/uL (0.11-0.59); #Neutrophils 3.1 thou/uL (1.40-6.50); %Basophils 0.4 % (0.0-1.0); %Eosinophils 12.3 % (0.0-10.0); %Lymphocytes 16.2 % (21.0-51.0); %Monocytes 7.7 % (0.0-10.0); %Neutrophils 63.5 % (42.0-75.0); Hemoglobin 13.6 g/dL (12.0-16.0); Mean Corpuscular HGB CONC 33.9 g/dL (32.0-36.0); Mean Corpuscular Hemoglobin 28.9 pg (27.0-31.0); Mean Corpuscular Volume 85.3 fL (78.0-98.0); Mean Platelet Volume 6.3 fL (7.4-10.4); Platelet Count 62 thou/uL (130-400); Platelet Morphology Comment Appears Decreased; RBC Distribution Width 14.8 % (11.5-14.5); Red Blood Cell (RBC) Count 4.71 mill/uL (4.20-5.40); White Blood Cell (WBC) Count 4.9 thou/uL (4.8-10.8)
[2020-09-17 21:33] LABS: ALT (SGPT) Less than 7 U/L (8-55); AST (SGOT) 17 U/L (5-34); Albumin 4.1 g/dL (3.5-5.0); Alkaline Phosphatase 177 U/L (40-110); Anion Gap 23 mmol/L (10-20); BUN (Urea Nitrogen) 11 mg/dL (7.0-18.7); Bilirubin, Total 0.3 mg/dL (0.2-1.2); Calc. Creatinine Clearance 0 mL/min (70-130); Calcium 9.1 mg/dL (7.8-10.44); Carbon Dioxide 24 mmol/L (22-29); Chloride 94 mmol/L (98-107); Estimated GFR-MDRD 20; Globulin 3.1 g/dL (2.4-3.5); Glucose 420 mg/dL (70-105); Lipase 4 U/L (8-78); Potassium 3.1 mmol/L (3.5-5.1); Protein, Total 7.2 g/dL (6.0-8.3); Sodium 138 mmol/L (136-145)
--- NOTE | 2020-09-17 21:35 | RAD ---
PORTABLE CHEST: 09/17/20 HISTORY: Chest pain. COMPARISON: 06/24/20 exam. Heart size is enlarged. Pulmonary vessels are mildly engorged. There is increased interstitial ibarra es which are more prominent in the right mid lung field. I would favor that this is scarring rather t davies infiltrate. There is a more prominent parenchymal density seen in this area on the previous exam. IMPRESSION: 1. Cardiomegaly with mild vascular engorgement suggesting some element of edema. 2. Parenchymal changes in the right mid lung field. I would favor this representing scar. POS: OFF
[2020-09-17 21:55] LABS: CKMB 1.6 ng/mL (0-6.6)
[2020-09-17] MEDS ORDERED: Nitroglycerin 2% Ointment 1 INCH/1 GM Packet ONE (22:50)
[2020-09-17] MEDS ORDERED: Aspirin 325 MG TAB ONE (22:50)
[2020-09-17] MEDS ORDERED: Insulin Regular 300 UNITS/3 ML VIAL ONE (23:44)
[2020-09-18 01:36] LABS: Troponin I 0.196 ng/mL (< 0.028)
[2020-09-22 08:43] LABS: Bicarbonate (HCO3v) 25.5 mmol/L (22.0-28.0); CO2 Tension (PvCO2) 39.4 mmHg (40.0-50.0); Calcium, Ionized 0.98 mmol/L (1.15-1.33); Chloride 100 mmol/L (98-107); Hemoglobin - Calc 14.4 g/dL (12.0-16.0); Sodium 134 mmol/L (138-145); T. Carbon Dioxide 26.7 mmol/L (22.0-28.0)
== END 2020-09-18 03:52 ==
LOC: ERS 20:19
DX: R07.2 Precordial pain (principal); E10.65 Type 1 diabetes mellitus with hyperglycemia; E10.22 Type 1 diabetes mellitus with diabetic chronic kidney disease; I12.0 Hypertensive chronic kidney disease with stage 5 chronic kidney disease or end stage renal disease; N18.6 End stage renal disease; I25.10 Atherosclerotic heart disease of native coronary artery without angina pectoris; E10.40 Type 1 diabetes mellitus with diabetic neuropathy, unspecified; E10.43 Type 1 diabetes mellitus with diabetic autonomic (poly)neuropathy; K31.84 Gastroparesis; K21.9 Gastro-esophageal reflux disease without esophagitis; F41.9 Anxiety disorder, unspecified; F32.9 Major depressive disorder, single episode, unspecified; Z79.899 Other long term (current) drug therapy
CPT/HCPCS: 36415; 36416; 51701; 71045; 80053; 82010; 82330; 82435; 82553; 82803; 83690; 83880; 84132; 84295; 84484; 84703; 85014; 85025; 93005; 96374; 96375; J1815

== ENCOUNTER 2020-10-22 17:41 | Inpatient (IN) | payer OTHER ==
[~2020-10-22 17:41] MED LIST: Iopamidol-370 76% 500 ML 1 ML ONE
[2020-10-22 18:38] LABS: #Basophils 0.1 thou/uL (0.0-0.2); #Eosinphils 0.3 thou/uL (0.0-0.7); #Lymphocytes 1.6 thou/uL (1.20-3.40); #Monocytes 0.5 thou/uL (0.11-0.59); #Neutrophils 8.5 thou/uL (1.40-6.50); %Basophils 0.5 % (0.0-1.0); %Eosinophils 2.5 % (0.0-10.0); %Lymphocytes 14.8 % (21.0-51.0); %Monocytes 4.8 % (0.0-10.0); %Neutrophils 77.5 % (42.0-75.0); Hemoglobin 6.8 g/dL (12.0-16.0); Mean Corpuscular HGB CONC 33.8 g/dL (32.0-36.0); Mean Corpuscular Volume 82.7 fL (78.0-98.0); Mean Platelet Volume 8.4 fL (7.4-10.4); Platelet Count 131 thou/uL (130-400); RBC Distribution Width 16.7 % (11.5-14.5); Red Blood Cell (RBC) Count 2.41 mill/uL (4.20-5.40); White Blood Cell (WBC) Count 10.9 thou/uL (4.8-10.8)
[2020-10-22] MEDS ORDERED: Ondansetron PF 4 MG/2 ML Vial ONE (18:41)
[2020-10-22 19:02] LABS: ALT (SGPT) 243 U/L (8-55); AST (SGOT) 362 U/L (5-34); Alkaline Phosphatase 473 U/L (40-110); Anion Gap 19 mmol/L (10-20); BUN (Urea Nitrogen) 49 mg/dL (7.0-18.7); Bilirubin, Total 0.7 mg/dL (0.2-1.2); Calc. Creatinine Clearance 0 mL/min (70-130); Calcium 9.4 mg/dL (7.8-10.44); Carbon Dioxide 29 mmol/L (22-29); Chloride 97 mmol/L (98-107); Globulin 3.1 g/dL (2.4-3.5); Glucose 91 mg/dL (70-105); Potassium 4.8 mmol/L (3.5-5.1); Protein, Total 7.1 g/dL (6.0-8.3); Sodium 140 mmol/L (136-145)
[2020-10-22 19:02] LABS: Base Excess-Venous 6.2 mmol/L (-2.0 to 3.0); CO2 Tension (PvCO2) 50.8 mmHg (40.0-50.0); Calcium, Ionized 1.12 mmol/L (1.15-1.33); Chloride 100 mmol/L (98-107); Glucose 92 mg/dL (70-105); Hemoglobin - Calc 10.4 g/dL (12.0-16.0); Lactate 0.44 mmol/L (0.50-2.20); Potassium 4.6 mmol/L (3.5-5.1); Sodium 138 mmol/L (138-145); T. Carbon Dioxide 33.5 mmol/L (22.0-28.0); vO2 Saturation-calc 64.6 % (60.0-85.0)
--- NOTE | 2020-10-22 19:14 | RAD ---
PORTABLE CHEST: 10/22/20 PROVIDED CLINICAL HISTORY: Cough. COMPARISON: 09/17/20. Cardiac and mediastinal silhouette is unchanged in appearance. There is persistent and/or recurrent b ilateral, predominantly perihilar air space disease. Prominence of the pulmonary vasculature. No pleu ral fluid or pneumothorax apparent. IMPRESSION: Prominence of the pulmonary vasculature compatible with congestive failure/volume overload. Bilateral air space disease suggests alveolar edema. POS: EMIL
[2020-10-22] MEDS ORDERED: niCARdipine 20MG In NaCl 20 MG/200 ML BAG ONE (19:35)
[2020-10-22] MEDS ORDERED: Fentanyl 100 MCG/2 ML VIAL ONE (19:43)
[2020-10-22] MEDS ORDERED: Promethazine HCl 25 MG/ML VIAL ONE (19:44)
--- NOTE | 2020-10-22 21:55 | CT ---
CT ABDOMEN AND PELVIS WITH IV CONTRAST: 10/22/20 PROVIDED CLINICAL HISTORY: Abdominal pain. FINDINGS: Comparison 08/27/19. Partially visualized bilateral ground glass opacities and small right pleural effusion. There is a peripheral wedge shaped focus of diminished attenuation involving the posterior aspects of the spleen compatible with splenic infarct. Bilateral renal cysts and renal atrophy are redemonstrat ed. The pancreas is atrophic. There is moderate gallbladder distention without pericholecystic inflam matory change evident. There is no bowel dilatation, inflammatory fat stranding, free fluid or free air apparent. The append ix appears normal. Extensive atherosclerotic vascular calcifications are seen. The osseous structures demonstrate no concerning lytic or blastic lesions. IMPRESSION: 1. Partially visualized bibasilar ground glass opacity may reflect edema or pneumonia. 2. Small right pleural fluid. 3. Moderate nonspecific gallbladder distention without overt pericholecystic inflammatory change . POS: EMIL
[2020-10-22] MEDS ORDERED: Ondansetron ODT 4 MG TAB PO PRN (23:00)
[2020-10-22] MEDS ORDERED: Guaifenesin DM 100-10/5 ML UDCUP PO PRN (23:00)
--- NOTE | 2020-10-22 23:03 | PDOC.HHP ---
Hospitalist HPI - History of Present Illness diarrhea / anemia History of Present Illness: Case of an 45y/o female who is covid 19 positive with pmhx of DM, esrd on h/d gerd and htn patient is known Covid positive who was brought to hospital from dialysis center due to diarrhea. most of the history is obtain from EMS and EMR records patient refuses to answer any questions, she literally said No when i as ked if she could answer any questions for me. Patient went to her dialysis this morning but was unable to complete her dialysis due to severe diarrhea. She refers 2 days of nausea / vomiting and diarrhea Hospitalist ROS - Review of Systems All other systems reviewed; all pertinent +/- noted in HPI/Subj Hospitalist History - Past Medical History Heme/Onc: reports: Anemia NOS Psych: reports: Other (Insomnia) Renal/: reports: Other (ESRD/HD) Endocrine: reports: Diabetes (Type 2), Hyperparathyroidism - Past Surgical History Past Surgical History: reports: Other, Tubal Ligation - Family History Family History: reports: diabetes mellitus - Social History Alcohol: reports: None Drugs: reports: none - Exam General Appearance: NAD ENT: normocephalic atraumatic, no oropharyngeal lesions Neck: supple, symmetric, no JVD Heart: RRR, no murmur, no gallops Respiratory: CTAB, no wheezes, no rales Gastrointestinal: soft, non-tender, non-distended Extremities: no cyanosis, no clubbing, no edema Skin: normal turgor, no lesions, no rashes Neurological: cranial nerve grossly intact, normal sensation to touch, no weakness Musculoskeletal: normal tone, normal strength, no muscle wasting Psychiatric: somnolent Hospitalist Results - Labs Result Diagrams: 10/22/20 18:15 10/22/20 18:15 Lab results: WBC 10.9 thou/uL (4.8-10.8) H 10/22/20 18:15 Hgb 6.8 g/dL (12.0-16.0) L 10/22/20 18:15 Hct 20.0 % (36.0-47.0) L 10/22/20 18:15 MCV 82.7 fL (78.0-98.0) 10/22/20 18:15 Plt Count 131 thou/uL (130-400) 10/22/20 18:15 Neutrophils % 77.5 % (42.0-75.0) H 10/22/20 18:15 VBG pCO2 50.8 mmHg (40.0-50.0) H 10/22/20 18:55 VBG pO2 34.0 mmHg (35.0-45.0) L 10/22/20 18:55 Sodium 140 mmol/L (136-145) 10/22/20 18:15 Potassium 4.8 mmol/L (3.5-5.1) 10/22/20 18:15 Chloride 97 mmol/L (98-107) L 10/22/20 18:15 Carbon Dioxide 29 mmol/L (22-29) 10/22/20 18:15 BUN 49 mg/dL (7.0-18.7) H 10/22/20 18:15 Creatinine 3.11 mg/dL (0.6-1.1) H 10/22/20 18:15 Glucose 91 mg/dL (70-105) 10/22/20 18:15 Calcium 9.4 mg/dL (7.8-10.44) 10/22/20 18:15 Total Bilirubin 0.7 mg/dL (0.2-1.2) 10/22/20 18:15 AST 362 U/L (5-34) H 10/22/20 18:15 ALT 243 U/L (8-55) H 10/22/20 18:15 Alkaline Phosphatase 473 U/L (40-110) H 10/22/20 18:15 Serum Total Protein 7.1 g/dL (6.0-8.3) 10/22/20 18:15 Albumin 4.0 g/dL (3.5-5.0) 10/22/20 18:15 Lipase 8 U/L (8-78) 10/22/20 18:45 Hospitalist H&P A/P - Problem (1) Hypertensive urgency Code(s): I16.0 - HYPERTENSIVE URGENCY Status: Acute (2) Dyslipidemia Code(s): E78.5 - HYPERLIPIDEMIA, UNSPECIFIED Status: Chronic (3) ESRD (end stage renal disease) on dialysis Code(s): N18.6 - END STAGE RENAL DISEASE; Z99.2 - DEPENDENCE ON RENAL DIALYSIS Status: Chronic (4) Volume overload Code(s): E87.70 - FLUID OVERLOAD, UNSPECIFIED Status: Resolved (5) Anemia Code(s): D64.9 - ANEMIA, UNSPECIFIED Status: Acute (6) COVID-19 Code(s): U07.1 - COVID-19 Status: Acute - Plan Plan: 45y/o female with the stated pmhx who present with anemia hypertensive urgency and diarrhea hypertensive urgency - resistent to po medications - started on cardene at the ED - continue home meds for htn - wean as tolerated diarrhea - will order stool cultures wbc and cdif - might be secondary to covid infection - will cover w zosyn - ct / us showed some gallbladder distention w/o inflammatory changes covid 19 - recently dx with covid 19 - no decreased in oxygen requirements, adequate saturations - abd CT showed b/l ground glass opacities on lungs, likely secondary to covid 19, should me covered with zosyn for any bacterial infection, could be pulmonary edema secondary to fluid overload / unfinished H/d esrd on /fluid overload - public works laborer consulted - no electrolyte disturbances - today tx was not finished, vascular cogestion on cx anemia - likely secondary to esrd - receive i prbc - f/u cbc DM -ac+ss
[2020-10-22] MEDS ORDERED: Haloperidol Lactate 5 MG/ML VIAL ONE (23:32)
[2020-10-22] MEDS ORDERED: diphenhydrAMINE 50 MG/ML VIAL ONE (23:32)
[2020-10-22] MEDS ORDERED: Piperacillin/Tazobactam 4.5 GM VIAL ONE (23:32)
--- NOTE | 2020-10-22 23:46 | ULT ---
RIGHT UPPER QUADRANT ULTRASOUND: Date: 10/22/2020 PROVIDED CLINICAL HISTORY: Elevated LFTs, nausea, vomiting, and diarrhea. FINDINGS: Comparison made with study dated 08/27/2019. The visualized IVC and pancreas appear normal. The liver demonstrates no mass or intrahepatic biliary ductal dilatation. The common duct is not dilated. Portions of the gallbladder wall appear thickened , measuring up to 4.0 mm. There is no evidence for stones or pericholecystic fluid. A small gallbladd er polyp is seen. Sonographic Nayak's sign is documented as negative. The right kidney appears atrop hic and demonstrates multiple cysts. IMPRESSION: Nonspecific gallbladder wall thickening without evidence for stones or sonographic Nayak's sign. POS: EMIL
[2020-10-22] MEDS ORDERED: Vancomycin 1 GM/200 ML BAG ONE (23:47)
[2020-10-23] MEDS ORDERED: Ondansetron PF 4 MG/2 ML Vial ONE ×2 (01:25→11:59)
[2020-10-23] MEDS ORDERED: Lorazepam 2 MG/ML VIAL ONE (01:27)
[2020-10-23] MEDS: Ondansetron PF 4 MG/2 ML Vial IVP PRN ×2 (01:35→12:04)
[2020-10-23] MEDS ORDERED: Dextrose 5% in Water 1,000 ML IV PRN (03:12)
[2020-10-23] MEDS ORDERED: Dextrose 50% Abboject 50 ML SYRINGE SLOW IVP PRN (03:12)
[2020-10-23] MEDS ORDERED: niCARdipine 20MG In NaCl 20 MG/200 ML BAG ONE ×2 (03:17→11:00)
[2020-10-23] MEDS ORDERED: HOLD VANCOMYCIN FOR LEVEL >20 FS SCH (05:15)
[2020-10-23] MEDS ORDERED: Vancomycin HCl 1.25 GM in Sodium Chloride 0.9% 250 ML 250 ML IVPB SCH (05:15)
[2020-10-23] MEDS ORDERED: Vancomycin HCl 750 MG in Sodium Chloride 0.9% 250 ML 250 ML IVPB SCH (05:15)
[2020-10-23] MEDS ORDERED: Vancomycin HCl 1.5 GM in Sodium Chloride 0.9% 250 ML 300 ML IVPB SCH (05:15)
[2020-10-23] MEDS ORDERED: Vancomycin 1 GM in Premix Bag 1 BAG IVPB SCH (05:15)
[2020-10-23 05:35] VITALS: BMI 22.1
[2020-10-23 07:04] LABS: Hemoglobin 9.4 g/dL (12.0-16.0); Mean Corpuscular HGB CONC 33.8 g/dL (32.0-36.0); Mean Corpuscular Hemoglobin 29.7 pg (27.0-31.0); Mean Corpuscular Volume 87.9 fL (78.0-98.0); Mean Platelet Volume 8.8 fL (7.4-10.4); Platelet Count 111 thou/uL (130-400); RBC Distribution Width 15.9 % (11.5-14.5); Red Blood Cell (RBC) Count 3.16 mill/uL (4.20-5.40); White Blood Cell (WBC) Count 12.2 thou/uL (4.8-10.8)
[2020-10-23 07:05] LABS: Band 3 % (5-11); Lymphocytes 2 % (21-51); MDiff Complete? YES; Monocytes 3 % (0-10); Neutrophil 91 % (42-75); Platelet Morphology Comment Appears Decreased
[2020-10-23 07:21] LABS: ALT (SGPT) 153 U/L (8-55); AST (SGOT) 124 U/L (5-34); Albumin 3.5 g/dL (3.5-5.0); Alkaline Phosphatase 418 U/L (40-110); Anion Gap 24 mmol/L (10-20); BUN (Urea Nitrogen) 58 mg/dL (7.0-18.7); Bilirubin, Total 0.9 mg/dL (0.2-1.2); Calc. Creatinine Clearance 16 mL/min (70-130); Calcium 8.8 mg/dL (7.8-10.44); Carbon Dioxide 23 mmol/L (22-29); Chloride 95 mmol/L (98-107); Glucose 227 mg/dL (70-105); Potassium 5.9 mmol/L (3.5-5.1); Protein, Total 6.5 g/dL (6.0-8.3); Sodium 136 mmol/L (136-145)
[2020-10-23] MEDS ORDERED: EPOETIN ALFA-EPBX (ESRD) 4,000 UNIT/ML VIAL SC SCH (08:15)
--- NOTE | 2020-10-23 08:20 | PRG ---
DATE OF SERVICE: 10/23/2020 SUBJECTIVE: Ms. Thao is a 45-year-old female with ESRD-maintenance hemodialysis, recent diagnosis of COVID-19 pneumonia, type 2 diabetes mellitus and admitted for symptomatic anemia. She was also complaining of nausea and vomiting. We are now following her up for her maintenance hemodialysis. I have scheduled her for dialysis today. She had shortened treatment yesterday. She was noted at the dialysis unit to be volume overloaded. She did receive 1 unit of packed RBC last night. OBJECTIVE: VITAL SIGNS: Blood pressure is currently 130/70, heart rate 87, pulse ox 93%. GENERAL: The patient is sleeping, but arousable, comfortable, not in distress. SKIN: Adequate turgor. HEENT: Slightly pale conjunctivae. Anicteric sclerae. No neck mass. No carotid bruits. No JVD. CHEST: No deformities. LUNGS: Clear breath sounds. HEART: Normal sinus rhythm. No murmur. No gallops. No rubs. ABDOMEN: Globular, soft, nontender. No masses. EXTREMITIES: No edema. No deformities. MEDICATIONS: Medications of October 23, 2020, was reviewed. LABORATORY DATA: Laboratories of October 23, 2020; white count 12.2, hemoglobin 9.4. On October 22, 2020; hemoglobin was 6.8. On October 23, 2020; sodium 136, potassium 5.9, chloride 95, carbon dioxide 23, BUN 58, creatinine 3.62. AST is 124, ALT is 153. Chest x-ray of October 22, 2020, shows CHF. CT scan of the abdomen and pelvis on October 22, 2020, showed nonspecific gallbladder distention, small right pleural effusion. ASSESSMENT AND PLAN: 1. Symptomatic anemia-we will give one more unit packed RBC with dialysis today. We will attempt to bring hemoglobin to at least 10 or greater. Start also Epogen 7500 units subcu every week. 2. End-stage renal disease/volume overload-we will be doing hemodialysis with this patient for at least 3 hours. Fluid removal will be done only as tolerated by the patient. 3. COVID-19 infection-supportive care. 4. Recheck CBC and basic metabolic profile in a.m. Addendum - PRBC transfusion was discontinued. Job ID: [id number] [facility]
[2020-10-23] MEDS ORDERED: Famotidine/PF 20 mg/2ml Vial ONE (09:23)
[2020-10-23] MEDS: Famotidine/PF 20 mg/2ml Vial SLOW IVP SCH (09:33)
[2020-10-23 09:51] LABS: HBSAg Index 0.17 S/CO (0-0.99); Hep B Surf Ag Non-Reactive S/CO (NonReactive)
[2020-10-23] MEDS ORDERED: HumaLOG 300 UNITS/3 ML VIAL ONE (13:38)
[2020-10-23] MEDS ORDERED: Piperacillin/Tazobactam 2.25 GM VIAL ONE (13:38)
[2020-10-23] MEDS: HumaLOG 300 UNITS/3 ML VIAL SC PRN (13:41)
[2020-10-23] MEDS: Piperacillin/Tazobactam 2.25 GM in Sodium Chloride 0.9% 100 ML IVPB SCH (13:41)
--- NOTE | 2020-10-23 14:26 | PDOC.HOSPP ---
- Subjective Encounter Date: 10/23/20 Encounter Time: 14:25 Subjective: This is a 45-year-old female whose medical history includes end-stage renal disease on hemodialysis, was recently diagnosed with COVID-19 pneumonia who presented to the hospital with ongoing diarrhea. She also was found to be anemic with a hemoglobin significantly decreased. She has since received 2 units of packed red cells. The diarrhea seems to have resolved. Stool occult blood is negative. Patient was not very good in providing any meaningful history today when I visited. She says she wants to be left alone. She refused to answer most questions. - Objective Vital Signs & Weight: Weight Weight 113 lb 8.609 oz Result Diagrams: 10/23/20 06:40 10/23/20 06:40 Additional Labs: Accuchecks 10/23/20 10/22/20 13:17 22:11 POC Glucose 228 H 118 H Radiology Reviewed by me: Yes EKG Reviewed by me: Yes Hospitalist ROS - Review of Systems ROS unobtainable: due to mental status Constitutional: reports: weakness, malaise Respiratory: reports: shortness of breath Gastrointestinal: reports: nausea, vomiting Neurological: reports: weakness - Medication Medications: Active Medications Generic Name Dose Route Start Last Admin Trade Name Freq PRN Reason Stop Dose Admin Epoetin Rafat-epbx 7,500 unit 10/23/20 08:15 10/23/20 11:44 Epoetin Rafat-Epbx (Esrd) 4,000 Unit/Ml Vial SC Not Given Q7D MEGAN Famotidine 20 mg 10/23/20 09:00 10/23/20 09:33 Famotidine/Pf 20 Mg/2ml Vial SLOW IVP 20 mg DAILY MEGAN Administration Piperacillin Sod/Tazobactam 100 mls @ 200 mls/hr 10/23/20 12:00 10/23/20 13:41 Sod 2.25 gm/ Sodium Chloride IVPB 100 mls 1200,2359 MEGAN Administration Insulin Human Lispro 0 units 10/23/20 03:12 10/23/20 13:41 Humalog 300 Units/3 Ml Vial SC 3 unit .MILD SLIDING SCALE PRN Administration Mild Correctional Scale Ondansetron HCl 4 mg 10/22/20 23:00 10/23/20 12:04 Ondansetron Pf 4 Mg/2 Ml Vial IVP 4 mg Q6H PRN Administration Nausea/Vomiting - Exam General Appearance: awake alert Eye: PERRL, anicteric sclera ENT: normocephalic atraumatic, no oropharyngeal lesions Neck: supple Heart: RRR Gastrointestinal: soft, non-tender, non-distended, normal bowel sounds Neurological: cranial nerve grossly intact, normal sensation to touch, no weakness, no focal deficits Musculoskeletal: normal tone Psychiatric: normal affect, normal behavior, A&O x 3, oriented to person, oriented to place Hosp A/P (1) COVID-19 Code(s): U07.1 - COVID-19 Status: Acute (2) Diarrhea Code(s): R19.7 - DIARRHEA, UNSPECIFIED Status: Acute Qualifiers: Diarrhea type: presumed infectious Qualified Code(s): R19.7 - Diarrhea, unspecified Plan: Continue supportive care. (3) ESRD (end stage renal disease) on dialysis Code(s): N18.6 - END STAGE RENAL DISEASE; Z99.2 - DEPENDENCE ON RENAL DIALYSIS Status: Acute (4) Hypertensive urgency Code(s): I16.0 - HYPERTENSIVE URGENCY Status: Acute Plan: Continue current management plan. - Plan old records reviewed/req, PT/OT, psychotherapist social worker, out of bed/ambulate, DVT proph w/lovenox
[2020-10-23] MEDS ORDERED: Melatonin 3 MG TAB PO SCH (23:59)
[2020-10-24] MEDS: Piperacillin/Tazobactam 2.25 GM in Sodium Chloride 0.9% 100 ML IVPB SCH ×2 (00:06→11:59)
[2020-10-24 05:07] LABS: #Eosinphils 0.2 thou/uL (0.0-0.7); #Lymphocytes 0.9 thou/uL (1.20-3.40); #Monocytes 0.5 thou/uL (0.11-0.59); #Neutrophils 4.6 thou/uL (1.40-6.50); %Eosinophils 2.8 % (0.0-10.0); %Lymphocytes 14.5 % (21.0-51.0); %Monocytes 7.9 % (0.0-10.0); %Neutrophils 74.7 % (42.0-75.0); Hemoglobin 8.3 g/dL (12.0-16.0); Mean Corpuscular HGB CONC 34.7 g/dL (32.0-36.0); Mean Corpuscular Volume 89.1 fL (78.0-98.0); Mean Platelet Volume 9.1 fL (7.4-10.4); Platelet Count 78 thou/uL (130-400); RBC Distribution Width 16.5 % (11.5-14.5); Red Blood Cell (RBC) Count 2.68 mill/uL (4.20-5.40); White Blood Cell (WBC) Count 6.1 thou/uL (4.8-10.8)
[2020-10-24 05:16] LABS: Anion Gap 19 mmol/L (10-20); BUN (Urea Nitrogen) 29 mg/dL (7.0-18.7); Calc. Creatinine Clearance 24 mL/min (70-130); Carbon Dioxide 24 mmol/L (22-29); Chloride 100 mmol/L (98-107); Glucose 454 mg/dL (70-105); Potassium 5.2 mmol/L (3.5-5.1); Sodium 138 mmol/L (136-145)
[2020-10-24] MEDS: HumaLOG 300 UNITS/3 ML VIAL SC PRN ×3 (05:53→17:40)
[2020-10-24] MEDS: Famotidine/PF 20 mg/2ml Vial SLOW IVP SCH (08:38)
[2020-10-24] MEDS ORDERED: FLU VACC QS2020-21(6MOS UP)/PF 60 MCG/0.5 ML SYRINGE IM ONE (09:00)
[2020-10-24] MEDS ORDERED: hydrALAZINE 20 MG/ML VIAL SLOW IVP SCH (09:30)
[2020-10-24] MEDS ORDERED: Amlodipine 10 MG TAB PO SCH (10:15)
[2020-10-24] MEDS ORDERED: Calcium Acetate 667 MG CAP PO SCH (10:15)
[2020-10-24] MEDS ORDERED: Atropine Sulfate 1% Ophth Soln 5 ml Bottle L EYE SCH (10:15)
[2020-10-24] MEDS ORDERED: Timolol 0.5% Ophth Soln 5 ml Bottle L EYE SCH (10:15)
[2020-10-24] MEDS ORDERED: Brimonidine Tartrate 0.2% Ophth Soln 5 ml Bottle EA EYE SCH (10:15)
[2020-10-24] MEDS ORDERED: levETIRAcetam 500 MG TAB PO SCH (10:15)
[2020-10-24] MEDS ORDERED: hydrALAZINE 25 MG TAB PO SCH (10:15)
[2020-10-24] MEDS ORDERED: Gabapentin 300 MG CAP PO SCH (10:15)
[2020-10-24] MEDS ORDERED: Dorzolamide HCl 2% Ophth Soln 10 ml Bottle EA EYE SCH (10:15)
[2020-10-24] MEDS ORDERED: Non-Formulary Item 1 EACH (Ferric Citrate [Auryxia] 210 MG Tablet) PO SCH (11:30)
[2020-10-24] MEDS: Sevelamer Carbonate 800 MG TAB PO SCH ×2 (11:52→17:40)
[2020-10-24] MEDS: Calcium Acetate 667 MG CAP PO SCH ×2 (11:53→17:40)
[2020-10-24] MEDS ORDERED: Brimonidine Tartrate 0.2% Ophth Soln 5 ml Bottle L EYE SCH (12:00)
[2020-10-24] MEDS ORDERED: Dorzolamide HCl 2% Ophth Soln 10 ml Bottle L EYE SCH (12:15)
--- NOTE | 2020-10-24 13:59 | PDOC.HOSPP ---
- Subjective Encounter Date: 10/24/20 Encounter Time: 13:57 Subjective: Patient was seen and evaluated. She denied any further diarrhea. Her blood pressure were significantly uncontrolled but this was likely because home meds were not restarted. She does have COVID-19 but she is asymptomatic from the Covid standpoint. She is on room air and saturating above 95%. She could potentially be a discharge by tomorrow. - Objective Vital Signs & Weight: Vital Signs (12 hours) Temp Pulse Resp BP BP Pulse Ox 10/24/20 11:53 98.5 F 72 20 140/64 97 10/24/20 08:50 98.3 F 98 16 195/81 H 98 10/24/20 08:40 97 10/24/20 03:28 99.1 F 76 14 164/68 H 98 Weight Weight 113 lb 8.609 oz I&O: 10/23/20 10/24/20 10/25/20 06:59 06:59 06:59 Intake Total 120 Output Total 1999 Balance -1880 Result Diagrams: 10/24/20 04:57 10/24/20 04:57 Additional Labs: Accuchecks 10/24/20 10/23/20 11:50 22:17 POC Glucose 304 H 159 H Radiology Reviewed by me: Yes EKG Reviewed by me: Yes Hospitalist ROS - Review of Systems ROS unobtainable: due to mental status Constitutional: reports: weakness, malaise Neurological: reports: numbness - Medication Medications: Active Medications Generic Name Dose Route Start Last Admin Trade Name Freq PRN Reason Stop Dose Admin Calcium Acetate 667 mg 10/24/20 12:00 10/24/20 11:53 Calcium Acetate 667 Mg Cap PO 667 mg TID-WM MEGAN Administration Epoetin Rafat-epbx 7,500 unit 10/23/20 08:15 10/23/20 11:44 Epoetin Rafat-Epbx (Esrd) 4,000 Unit/Ml Vial SC Not Given Q7D MEGAN Famotidine 20 mg 10/23/20 09:00 10/24/20 08:38 Famotidine/Pf 20 Mg/2ml Vial SLOW IVP 20 mg DAILY MEGAN Administration Piperacillin Sod/Tazobactam 100 mls @ 200 mls/hr 10/23/20 12:00 10/24/20 11:59 Sod 2.25 gm/ Sodium Chloride IVPB 100 mls 1200,2359 MEGAN Administration Insulin Human Lispro 0 units 10/23/20 03:12 10/24/20 11:56 Humalog 300 Units/3 Ml Vial SC 5 unit .MILD SLIDING SCALE PRN Administration Mild Correctional Scale Ondansetron HCl 4 mg 10/22/20 23:00 10/23/20 12:04 Ondansetron Pf 4 Mg/2 Ml Vial IVP 4 mg Q6H PRN Administration Nausea/Vomiting Sevelamer Carbonate 800 mg 10/24/20 12:00 10/24/20 11:52 Sevelamer Carbonate 800 Mg Tab PO 800 mg TID-WM MEGAN Administration Sodium Chloride 10 ml 10/23/20 21:00 10/24/20 08:39 Flush - Normal Saline 10 Ml Syringe IVF 10 ml Q12HR MEGAN Administration - Exam ENT: normocephalic atraumatic Neck: supple, symmetric, no JVD Heart: RRR, no murmur, no gallops, no rubs, normal peripheral pulses Respiratory: CTAB, no wheezes, no rales, no ronchi, normal chest expansion Gastrointestinal: soft, non-tender Neurological: cranial nerve grossly intact, normal sensation to touch Musculoskeletal: generalized weakness Psychiatric: normal affect, normal behavior, A&O x 3 Hosp A/P (1) COVID-19 Code(s): U07.1 - COVID-19 Status: Acute (2) Diarrhea Code(s): R19.7 - DIARRHEA, UNSPECIFIED Status: Acute Qualifiers: Diarrhea type: presumed infectious Qualified Code(s): R19.7 - Diarrhea, unspecified (3) ESRD (end stage renal disease) on dialysis Code(s): N18.6 - END STAGE RENAL DISEASE; Z99.2 - DEPENDENCE ON RENAL DIALYSIS Status: Acute (4) Hypertensive urgency Code(s): I16.0 - HYPERTENSIVE URGENCY Status: Acute - Plan old records reviewed/req, PT/OT, social work job titles
[2020-10-24] MEDS: Dorzolamide HCl 2% Ophth Soln 10 ml Bottle L EYE SCH ×2 (16:10→19:54)
[2020-10-24] MEDS: Brimonidine Tartrate 0.2% Ophth Soln 5 ml Bottle L EYE SCH ×2 (16:10→19:54)
[2020-10-24] MEDS: Timolol 0.5% Ophth Soln 5 ml Bottle L EYE SCH ×2 (16:11→19:55)
[2020-10-24] MEDS: hydrALAZINE 25 MG TAB PO SCH ×2 (16:11→19:55)
[2020-10-24] MEDS: Atropine Sulfate 1% Ophth Soln 5 ml Bottle L EYE SCH (19:54)
[2020-10-24] MEDS: Gabapentin 300 MG CAP PO SCH (19:54)
[2020-10-24] MEDS: levETIRAcetam 500 MG TAB PO SCH (19:55)
[2020-10-24] MEDS ORDERED: Melatonin 3 MG TAB PO SCH (21:00)
[2020-10-25] MEDS: Piperacillin/Tazobactam 2.25 GM in Sodium Chloride 0.9% 100 ML IVPB SCH ×2 (00:17→13:57)
[2020-10-25] MEDS ORDERED: Acetaminophen 325 MG TAB PO PRN (03:19)
[2020-10-25] MEDS: HumaLOG 300 UNITS/3 ML VIAL SC PRN (04:31)
[2020-10-25 05:26] LABS: #Eosinphils 0.3 thou/uL (0.0-0.7); #Lymphocytes 1.2 thou/uL (1.20-3.40); #Monocytes 0.5 thou/uL (0.11-0.59); #Neutrophils 4.4 thou/uL (1.40-6.50); %Basophils 0.8 % (0.0-1.0); %Eosinophils 4.2 % (0.0-10.0); %Lymphocytes 18.8 % (21.0-51.0); %Monocytes 7.4 % (0.0-10.0); %Neutrophils 68.8 % (42.0-75.0); Hemoglobin 7.9 g/dL (12.0-16.0); Mean Corpuscular HGB CONC 33.7 g/dL (32.0-36.0); Mean Corpuscular Hemoglobin 30.7 pg (27.0-31.0); Mean Platelet Volume 9.6 fL (7.4-10.4); Platelet Count 78 thou/uL (130-400); RBC Distribution Width 17.1 % (11.5-14.5); Red Blood Cell (RBC) Count 2.57 mill/uL (4.20-5.40); White Blood Cell (WBC) Count 6.3 thou/uL (4.8-10.8)
[2020-10-25 05:46] LABS: Anion Gap 23 mmol/L (10-20); BUN (Urea Nitrogen) 52 mg/dL (7.0-18.7); Calc. Creatinine Clearance 16 mL/min (70-130); Calcium 7.4 mg/dL (7.8-10.44); Carbon Dioxide 22 mmol/L (22-29); Chloride 100 mmol/L (98-107); Glucose 451 mg/dL (70-105); Potassium 5.5 mmol/L (3.5-5.1); Sodium 139 mmol/L (136-145)
[2020-10-25] MEDS: Calcium Acetate 667 MG CAP PO SCH ×3 (08:29→16:58)
[2020-10-25] MEDS: Gabapentin 300 MG CAP PO SCH (08:29)
[2020-10-25] MEDS: Sevelamer Carbonate 800 MG TAB PO SCH ×3 (08:29→16:58)
[2020-10-25] MEDS: levETIRAcetam 500 MG TAB PO SCH (08:31)
[2020-10-25] MEDS: Dorzolamide HCl 2% Ophth Soln 10 ml Bottle L EYE SCH ×2 (08:34→14:02)
[2020-10-25] MEDS: Timolol 0.5% Ophth Soln 5 ml Bottle L EYE SCH ×2 (08:34→14:02)
[2020-10-25] MEDS: Brimonidine Tartrate 0.2% Ophth Soln 5 ml Bottle L EYE SCH ×2 (08:34→14:01)
[2020-10-25] MEDS: Atropine Sulfate 1% Ophth Soln 5 ml Bottle L EYE SCH (08:34)
--- NOTE | 2020-10-25 08:43 | PRG ---
DATE OF SERVICE: 10/25/2020 SUBJECTIVE: Ms. Thao is a 45-year-old female with ESRD-currently on maintenance hemodialysis and was initially admitted due to nausea and vomiting. She also had some diarrhea. She was also noted to be symptomatically anemic. She was given blood transfusion with that. We have resumed her Epogen. She voices no new complaints today. No chest pain or shortness of breath. OBJECTIVE: VITAL SIGNS: Blood pressure 172/75, heart rate 69, respiratory rate 16, temperature 97.8, O2 saturation 92%. GENERAL: Noted to be awake, alert, comfortable, not in overt distress. SKIN: Adequate turgor. HEENT: She has slightly pale conjunctivae. Anicteric sclerae. No neck mass. No carotid bruits. No JVD. CHEST: No deformities. LUNGS: Clear breath sounds. No wheezing. No crackles. HEART: Normal sinus rhythm. No murmur. No gallops. No rubs. ABDOMEN: Globular, soft, nontender. No masses. EXTREMITIES: No edema. No deformities. MEDICATIONS: Of October 25, 2020, were reviewed. LABORATORY DATA: Of October 25, 2020; white count 6.2, hemoglobin 7.9. Sodium 139, potassium 5.5, chloride 100, carbon dioxide 22, BUN 52, creatinine 3.66, glucose 451, and calcium 7.4. ASSESSMENT AND PLAN: 1. End-stage renal disease, stable. We will continue current hemodialysis regimen of Sunday, Sunday, and Sunday. Fluid removal as tolerated by the patient. 2. Anemia. Continuing Epogen, p.r.n. blood transfusion for hemoglobin less than 7. 3. Nausea/vomiting-most likely from diabetic gastroparesis. Job ID: [id number]
[2020-10-25] MEDS ORDERED: Amlodipine 10 MG TAB PO SCH (09:00)
[2020-10-25] MEDS ORDERED: Insulin Glargine 14 UNITS in Pre-Filled Syringe 1 EACH SC SCH (09:00)
[2020-10-25] MEDS: hydrALAZINE 25 MG TAB PO SCH ×2 (13:54→13:55)
--- NOTE | 2020-10-25 14:58 | PDOC.DS.DS ---
Provider - Provider Date of Admission: 10/22/20 22:24 Date of Discharge: 10/25/20 Admitting Provider: Otf Evangelista Primary Care Physician: Nakita Cabrera MD Course - Hospital Course Hospital Course: 45-year-old female with end-stage renal disease on hemodialysis who was admitted to the hospital with nausea, vomiting and some loose bowel movements. She was hospitalized for further treatment and stabilization. She recently tested positive outpatient for the COVID-19 virus. It was unclear if the GI symptoms were due to the Covid or this was another course. At any rate she was dialyzed on her scheduled days. She has required Cardene for significantly elevated blood pressure. Over time her blood pressure has been controlled. She has done well and is being discharged home today. Resuscitation Status: 10/22/20 23:00 Resuscitation Status Routine Resuscitation Status: FULL: Full Resuscitation - Labs Lab Results: 10/25/20 05:01 10/25/20 05:01 Abnormal Lab Results - Last 48 hrs 10/24/20 04:57: Potassium 5.2 H, BUN 29 H, Creatinine 2.40 H 10/24/20 04:57: RBC 2.68 L, Hgb 8.3 L, Hct 23.9 L, RDW 16.5 H, Plt Count 78 L, Lymphocytes % 14.5 L, Lymphocytes # 0.9 L 10/25/20 05:01: Potassium 5.5 H, Anion Gap 23 H, BUN 52 H, Creatinine 3.66 H, Calcium 7.4 L 10/25/20 05:01: RBC 2.57 L, Hgb 7.9 L, Hct 23.4 L, RDW 17.1 H, Plt Count 78 L, Lymphocytes % 18.8 L Microbiology - Entire Visit 10/22/20 18:45 Venous blood - Neck Blood Culture - Preliminary NO GROWTH AT 48 HOURS 10/22/20 18:16 Venous blood - Right Arm Blood Culture - Preliminary NO GROWTH AT 48 HOURS 10/23/20 00:38 Stool - Pending Stool Occult Blood (ARGELIA) - Final - Physical Exam Vitals: Vital Signs (12 hours) Temp Pulse Resp BP Pulse Ox 10/25/20 13:40 98.2 F 70 12 156/67 H 96 10/25/20 08:29 92 L 10/25/20 07:52 97.8 F 69 16 172/75 H 92 L 10/25/20 03:22 98 F 71 17 130/58 L 91 L Weight Weight 113 lb 8.609 oz Physical Exam: The patient was seen and examined on the day of discharge. Problem - Problem (1) COVID-19 Code(s): U07.1 - COVID-19 Status: Chronic Plan: She was diagnosed as outpatient. She does not have any symptoms of Covid at the moment. She is cleared to discharge back to her group home. (2) Diarrhea Code(s): R19.7 - DIARRHEA, UNSPECIFIED Status: Acute Qualifiers: Diarrhea type: presumed infectious Qualified Code(s): R19.7 - Diarrhea, unspecified Plan: This has resolved. (3) ESRD (end stage renal disease) on dialysis Code(s): N18.6 - END STAGE RENAL DISEASE; Z99.2 - DEPENDENCE ON RENAL DIALYSIS Status: Acute (4) Hypertensive urgency Code(s): I16.0 - HYPERTENSIVE URGENCY Status: Acute Plan: Her blood pressure appears to be better. Plan - Discharge Medications Home Medications: Medication Instructions Recorded Confirmed Type Pantoprazole [Protonix] 40 mg PO DAILY 11/17/16 10/23/20 History Amlodipine [Norvasc] 10 mg PO DAILY #30 tab 05/25/17 10/23/20 Rx Atropine Sulfate [Atropine 1% 1 drop L EYE BID 03/11/19 10/23/20 History Ophth Soln] Melatonin 10 mg PO HS 03/11/19 10/23/20 History Metoprolol Succinate 50 mg PO DAILY 03/11/19 10/23/20 History Gabapentin [Neurontin] 300 mg PO BID 03/28/19 10/23/20 History Acetaminophen [Tylenol Regular 650 mg PO Q4H PRN tab 08/30/19 10/23/20 Rx Strength] HumaLOG [HumaLOG Vial] 0 unit SC AC PRN 11/10/19 10/23/20 History Calcium Acetate 667 mg PO TID-WM 06/24/20 10/23/20 History levETIRAcetam [Keppra] 500 mg PO BID 06/24/20 10/23/20 History Insulin Glargine [Lantus Vial] 14 units SC QAM 06/25/20 10/23/20 History Sertraline HCl [Zoloft] 50 mg PO DAILY 10/20/20 11/28/20 History hydrALAZINE HCl [Hydralazine HCl] 25 mg PO DAILY 09/14/20 10/23/20 History Amino Acids/Protein Hydrolys 30 ml PO BID 10/23/20 10/23/20 History [Pro-Stat AWC Liquid] Ferric Citrate [Auryxia] 1 g PO AC 10/23/20 10/23/20 History Sevelamer Carbonate [Renvela] 1 packet PO TID-WM 10/23/20 10/23/20 History Brimonidine Tartrate [Brimonidine 1 drop L EYE TID 10/24/20 10/24/20 History Tartrate 0.15% Ophth Soln] Dorzolamide HCl/Pf [Dorzolamide 2% 1 drop L EYE TID 10/24/20 10/24/20 History Eye Drop] Ondansetron HCl [Zofran] 4 mg PO Q8H PRN 10/24/20 10/24/20 History Patiromer Calcium Sorbitex 1 packet PO DAILY 10/24/20 10/24/20 History [Veltassa] Timolol Maleate [Timolol Maleate 1 drop L EYE TID 10/24/20 10/24/20 History 0.5% Ophth SolN] hydrOXYzine HCl [Hydroxyzine HCl] 50 mg PO Q6H PRN 10/24/20 10/24/20 History Allergies: No Known Allergies Allergy (Verified 10/23/20 18:01) - Discharge Instructions Activity:: Activity as Tolerated - Follow up Plan Referrals: Nakita Cabrera MD [Primary Care Provider] - Disposition: LONGTERM/ASSISTED LIVING Quality - Care Measures CORE MEASURES:: N/A
[2020-10-25 15:54] VITALS: BP 169/72; TEMP 98.9
--- NOTE | 2020-10-27 05:21 | PQF ---
CLINICAL DOCUMENTATION CLARIFICATION FORM: Dear : Tamera Sandoval MD Date / Time: 10/27/2020 Please exercise your independent, professional judgment in responding to the clarification form. Clinical indicators are provided on the bottom of this form for your review Please check appropriate box(es): HEART FAILURE: A. ACUITY [ ] Acute [ x ] Acute on Chronic [ ] Chronic B. TYPE: [ ] Systolic / HFrEF [ x ] Diastolic / HFpEF [ ] Combined Systolic / Diastolic [ ] Hypertensive Heart and Kidney disease [ x] Hypertensive Heart Disease [ ] Hypertensive Kidney Disease [ ] Other diagnosis (Please specify if any) [ ] Unable to determine In addition, please specify: Present on Admission (POA): [ x] Yes [ ] No [ ] Unable to determine Physician Signature: Date/Time: For continuity of documentation, please document condition throughout progress notes and discharge summary. Thank You. To be completed by CDI/Coding staff for physician review: Present Clinical Indicators - Signs / Symptoms / Labs Results and Location in Medical Record [ ] Ejection Fraction = % [ ] Dyspnea, Hypoxia [ ] Peripheral edema [ ] Elevated BNP [x] Volume overload H&P on 10/22 [x] Chest x ray of oct 22, 2020 shows CHF Progress notes on 10/23 [x] Pleural effusion Progress notes on 10/23 [ ] CXR results [ ] Arrhythmia--tachycardia Present Risk Factors Results and Location in Medical Record [ ] History of CAD/ischemic heart disease [x] CKD Hypertension ED provider report on 10/22 [ ] History of NH Present Treatments Results and Location in Medical Record [ ] Administration of ARMANDO / ARB / BB [ ] Cardiac monitoring / telemetry/ECHO [x] Hydralazine 75mg PO Medication on 10/24, 10/25 [ ] Oxygen [ ] AICD [ ] Cardiology Consult CDS/Telephone Betting Clerk Signature: AAS Phone #: Date/Time: 10/27/2020 This is a permanent part of the Medical Record [facility]
--- NOTE | 2020-10-30 11:19 | EKG ---
Test Reason : Blood Pressure : / mmHG Vent. Rate : 079 BPM Atrial Rate : 079 BPM P-R Int : 152 ms QRS Dur : 086 ms QT Int : 396 ms P-R-T Axes : 019 067 057 degrees QTc Int : 454 ms Normal sinus rhythm Normal ECG Confirmed by TAMI JOE ([id number]), features editor JUAN MANUEL DOUGLASS ([id number]) on 10/30/2020 11:19:02 AM Referred By: Confirmed By:TAMI JOE
== END 2020-10-25 17:22 | DRG 291 ==
LOC: ERS 17:41 → ERHOLD 22:24 → 2SW 10-23 17:41
PROVIDERS: ADMIT Internal Medicine; ATTEND Hospitalist
PROC: 30233N1 Transfusion of Nonautologous Red Blood Cells into Peripheral Vein, Percutaneous Approach (ICD-10-PCS; principal; 2020-10-22)
PROC: 5A1D70Z Performance of Urinary Filtration, Intermittent, Less than 6 Hours Per Day (ICD-10-PCS; 2020-10-23)
DX: I13.0 Hypertensive heart and chronic kidney disease with heart failure and stage 1 through stage 4 chronic kidney disease, or unspecified chronic kidney disease (principal); N18.6 End stage renal disease; U07.1 COVID-19; I50.33 Acute on chronic diastolic (congestive) heart failure; I16.1 Hypertensive emergency; N25.81 Secondary hyperparathyroidism of renal origin; J90 Pleural effusion, not elsewhere classified; A09 Infectious gastroenteritis and colitis, unspecified; K21.9 Gastro-esophageal reflux disease without esophagitis; E78.5 Hyperlipidemia, unspecified; F41.9 Anxiety disorder, unspecified; F32.9 Major depressive disorder, single episode, unspecified; D63.1 Anemia in chronic kidney disease; E11.22 Type 2 diabetes mellitus with diabetic chronic kidney disease; G47.00 Insomnia, unspecified; E87.70 Fluid overload, unspecified; E21.3 Hyperparathyroidism, unspecified; E11.43 Type 2 diabetes mellitus with diabetic autonomic (poly)neuropathy; Z99.2 Dependence on renal dialysis; Z98.51 Tubal ligation status; K31.84 Gastroparesis
CPT/HCPCS: 36415; 36416; 36430; 71045; 74177; 76705; 80048; 80053; 82274; 82330; 82803; 83605; 83690; 84145; 85007; 85025; 85027; 86850; 86900; 86901; 87040; 87340; 90935; 93005; 96365; 96366; 96367; 96368; 96375; G0257; J0360; J1200; J1630; J1815; J2060; J2405; J2543; J2550; J3010; J3370; J3490; P9016; Q0162; Q9967; S0028

== ENCOUNTER 2020-10-31 16:52 | Emergency (ER) | payer OTHER ==
[2020-10-31] MEDS ORDERED: Dextrose 50% Abboject 50 ML SYRINGE ONE ×2 (16:57→16:59)
[2020-10-31 17:19] LABS: #Eosinphils 0.5 thou/uL (0.0-0.7); #Lymphocytes 1.2 thou/uL (1.20-3.40); #Monocytes 0.4 thou/uL (0.11-0.59); #Neutrophils 5.1 thou/uL (1.40-6.50); %Basophils 0.4 % (0.0-1.0); %Eosinophils 6.6 % (0.0-10.0); %Lymphocytes 16.5 % (21.0-51.0); %Neutrophils 71.5 % (42.0-75.0); Hemoglobin 6.7 g/dL (12.0-16.0); Mean Corpuscular HGB CONC 32.7 g/dL (32.0-36.0); Mean Corpuscular Hemoglobin 30.3 pg (27.0-31.0); Mean Corpuscular Volume 92.7 fL (78.0-98.0); Mean Platelet Volume 8.6 fL (7.4-10.4); Platelet Count 134 thou/uL (130-400); RBC Distribution Width 17.1 % (11.5-14.5); White Blood Cell (WBC) Count 7.2 thou/uL (4.8-10.8)
[2020-10-31 17:44] LABS: ALT (SGPT) 37 U/L (8-55); AST (SGOT) 27 U/L (5-34); Albumin 3.8 g/dL (3.5-5.0); Alkaline Phosphatase 405 U/L (40-110); Anion Gap 18 mmol/L (10-20); BUN (Urea Nitrogen) 43 mg/dL (7.0-18.7); Bilirubin, Total 0.5 mg/dL (0.2-1.2); Calc. Creatinine Clearance 0 mL/min (70-130); Calcium 8.3 mg/dL (7.8-10.44); Carbon Dioxide 32 mmol/L (22-29); Chloride 90 mmol/L (98-107); Glucose 327 mg/dL (70-105); Potassium 3.6 mmol/L (3.5-5.1); Protein, Total 6.8 g/dL (6.0-8.3); Sodium 136 mmol/L (136-145)
== END 2020-10-31 22:45 | disposition home or self-care (01) ==
LOC: ERS 16:52
DX: E10.649 Type 1 diabetes mellitus with hypoglycemia without coma (principal); E10.22 Type 1 diabetes mellitus with diabetic chronic kidney disease; I12.0 Hypertensive chronic kidney disease with stage 5 chronic kidney disease or end stage renal disease; N18.6 End stage renal disease; T68.XXXA Hypothermia, initial encounter; E10.40 Type 1 diabetes mellitus with diabetic neuropathy, unspecified; D64.9 Anemia, unspecified; I25.10 Atherosclerotic heart disease of native coronary artery without angina pectoris; E10.43 Type 1 diabetes mellitus with diabetic autonomic (poly)neuropathy; K31.84 Gastroparesis; E10.39 Type 1 diabetes mellitus with other diabetic ophthalmic complication; H42 Glaucoma in diseases classified elsewhere; G47.00 Insomnia, unspecified; Z99.2 Dependence on renal dialysis; E21.3 Hyperparathyroidism, unspecified; Z79.899 Other long term (current) drug therapy
CPT/HCPCS: 36416; 36680; 80053; 85025; 99285

== ENCOUNTER 2020-11-23 11:20 | Inpatient (IN) | payer OTHER ==
[2020-11-23] MEDS ORDERED: Dextrose 50% Abboject 50 ML SYRINGE ONE (11:38)
[2020-11-23 12:06] LABS: #Basophils 0.1 thou/uL (0.0-0.2); #Eosinphils 1.2 thou/uL (0.0-0.7); #Lymphocytes 2.9 thou/uL (1.20-3.40); #Monocytes 0.3 thou/uL (0.11-0.59); #Neutrophils 7.1 thou/uL (1.40-6.50); %Basophils 1.1 % (0.0-1.0); %Eosinophils 9.9 % (0.0-10.0); %Lymphocytes 25.3 % (21.0-51.0); %Monocytes 2.9 % (0.0-10.0); %Neutrophils 60.8 % (42.0-75.0); Hemoglobin 4.8 g/dL (12.0-16.0); Mean Corpuscular HGB CONC 32.8 g/dL (32.0-36.0); Mean Corpuscular Hemoglobin 30.4 pg (27.0-31.0); Mean Corpuscular Volume 92.7 fL (78.0-98.0); Mean Platelet Volume 8.5 fL (7.4-10.4); Platelet Count 208 thou/uL (130-400); RBC Distribution Width 14.4 % (11.5-14.5); Red Blood Cell (RBC) Count 1.59 mill/uL (4.20-5.40); White Blood Cell (WBC) Count 11.6 thou/uL (4.8-10.8)
[2020-11-23 12:30] LABS: ALT (SGPT) 9 U/L (8-55); AST (SGOT) 17 U/L (5-34); Albumin 4.4 g/dL (3.5-5.0); Alkaline Phosphatase 362 U/L (40-110); Anion Gap 22 mmol/L (10-20); BUN (Urea Nitrogen) 63 mg/dL (7.0-18.7); Bilirubin, Total 0.6 mg/dL (0.2-1.2); Calc. Creatinine Clearance 0 mL/min (70-130); Calcium 9.8 mg/dL (7.8-10.44); Carbon Dioxide 29 mmol/L (22-29); Chloride 96 mmol/L (98-107); Globulin 3.7 g/dL (2.4-3.5); Magnesium 2.9 mg/dL (1.6-2.6); Potassium 5.8 mmol/L (3.5-5.1); Protein, Total 8.1 g/dL (6.0-8.3); Sodium 141 mmol/L (136-145)
[2020-11-23 12:39] LABS: Glucose 41 mg/dL (70-105)
[2020-11-23] MEDS ORDERED: Senokot S 8.6-50 MG TAB PO PRN (13:31)
[2020-11-23] MEDS ORDERED: Bisacodyl 5 MG TAB PO PRN (13:31)
[2020-11-23] MEDS ORDERED: Dextrose 5% in Water 1,000 ML IV PRN ×2 (13:36→20:43)
[2020-11-23] MEDS ORDERED: HumaLOG 300 UNITS/3 ML VIAL SC PRN (13:36)
[2020-11-23] MEDS ORDERED: Dextrose 50% Abboject 50 ML SYRINGE SLOW IVP PRN ×2 (13:36→20:43)
[2020-11-23] MEDS ORDERED: Pantoprazole 80 MG, Admixture Fee 1 EACH in Sodium Chloride 0.9% 100 ML IVPB SCH (14:00)
[2020-11-23] MEDS ORDERED: Pantoprazole 40 MG VIAL ONE (14:28)
--- NOTE | 2020-11-23 15:21 | HP ---
CHIEF COMPLAINT: Generalized weakness. HISTORY OF PRESENT ILLNESS: The patient is a 45-year-old female, who is a half-way resident, who presented to the hospital with generalized weakness and was noted to have a blood sugar at the half-way of 45. At this time, EMS was called. The patient was given D50, was brought here. The patient also continued to have low blood sugars. She was given another amp of D50 and at this time, labs were checked. The patient's hemoglobin was 4. At this time, she was admitted to the hospital for further evaluation. PAST MEDICAL HISTORY: 1. She has a history of diabetes. 2. End-stage renal disease, on dialysis. 3. Hyperparathyroidism. 4. Anemia. 5. Insomnia. PAST SURGICAL HISTORY: She has had a tubal ligation. FAMILY HISTORY: History of diabetes. SOCIAL HISTORY: No history of alcohol use, drug use, or smoking history. She is currently a full code. [facility] resident. REVIEW OF SYSTEMS: All negative except for the ones mentioned above in the HPI. Allergies: NKDA Meds: will get list from half-way. PHYSICAL EXAMINATION: VITAL SIGNS: Temperature of 97.7, oxygen saturation 99% on room air, respirations 12, blood pressure 197/116, and heart rate 53. GENERAL: She is awake, alert, and oriented x3. Follows commands. CV: S1 and S2 present. No murmurs, rubs, or gallops. LUNGS: Clear to auscultation. No rhonchi or wheezes noted. ABDOMEN: Soft and nontender. Bowel sounds present x2. EXTREMITIES: Muscle wasting noted. She has some scabs on her lower extremity. Pedal pulses are present x2. Mild 1+ lower extremity edema. NEUROVASCULAR: Neurovascular-kaur, no focal deficits noted. SKIN: She has some old scabs noted to her bilateral lower legs. LABORATORY RESULTS: As of the following; WBCs of 11.6, hemoglobin of 4.8, hematocrit of 14.7, and her platelets are 208. Chemistry; sodium of 141, potassium of 5.8, BUN of 62, and creatinine of 8.36. Her glucose is 41, repeat one was 162. Her magnesium was 2.9. ASSESSMENT AND PLAN: The patient is a 45-year-old female, who presents to the hospital with complaints of generalized weakness. 1. Acute blood loss anemia. The patient had a rectal exam done by the ER physician noted dark stool. Stool for occult has been sent. We will start the patient on a PPI. GI has been consulted. In looking at her medication profile, she is not on any NSAIDs. We will continue to monitor. We will also check iron studies. 2. Hypoglycemia. The patient is on insulin. We will hold that for now. We will check a hemoglobin A1c. She may not even require insulin. We will start her on D10 and continue to monitor the patient. 3. Hyperkalemia. No EKG changes. I will go ahead and also repeat that to make sure that is result. 4. End-stage renal disease, on dialysis. We will get Nephrology to see this patient. 5. Deep venous thrombosis prophylaxis. We will put the patient on SCDs. Job ID: [id number] MTDD
[2020-11-23 17:19] VITALS: BMI 17.9
[2020-11-23] MEDS: Dextrose 10% in Water 1,000 ML IV SCH (17:47)
--- NOTE | 2020-11-23 17:59 | CON ---
DATE OF CONSULTATION: 11/23/2020 REQUESTING PHYSICIAN: Dr. Tello. REASON FOR CONSULTATION: GI bleeding. HISTORY OF PRESENT ILLNESS: Winsome Thao is a 45-year-old woman with an unfortunate past medical history of end-stage renal disease on hemodialysis, coronary artery disease, and diabetes type 1 with gastroparesis. Throughout 2018, the patient had multiple episodes of recurrent C difficile infection. She actually underwent stool transplant with colonoscopy in March 2019. Notably at that time, the colonoscopy was otherwise normal. She was treated again with vancomycin later in 2018 and finally with a course of Dificid in October 2019 and seems to have had resolution of diarrhea after that. I cannot find any documentation of recurrent C difficile over the past year since that time. More recently, she was hospitalized here in September 2020 with COVID infection. She did fairly well clinically and had complete recovery at least from a respiratory standpoint. She is being admitted again today after being found to be very lethargic and generally weak at the [facility]. Upon arrival, she was hypoglycemic with blood glucose only 41, but she was also found to be significantly anemic with hemoglobin only 4.8. Looking back, hemoglobin was normal at 13.6 as recently as 2 months ago in August 2020. On her September admission, it had gone down to 9.4, then was 6.7 just a couple of weeks ago, and now at 4.8. The patient is blind, so she cannot see her stools, but nursing reported the stool was very dark here in the ER, though guaiac was negative. The patient herself denies any recurrence of diarrhea. She denies any abdominal pain or nausea or any anal pain with defecation. Looking back, I see she had an EGD back in 2015, which was negative. She is receiving 2 units of RBCs, was started on IV PPI as well as D10 and is being admitted for further evaluation. She is hemodynamically stable. REVIEW OF SYSTEMS: Full review of systems including constitutional, head, eyes, ears, nose, throat, GI, , cardiovascular, respiratory, musculoskeletal, and neurologic systems is negative except as noted in the HPI. PAST MEDICAL HISTORY: Diabetes type 1 with peripheral neuropathy, retinopathy and nephropathy, gastroparesis secondary to diabetes, anemia of chronic disease and end-stage renal disease, end-stage renal disease on hemodialysis, history of recurrent C difficile infection multiple episodes through October 2019, GERD, glaucoma, bilateral blindness, previous right eye enucleation, hypertension, depression/anxiety, tubal ligation, history of surgery for traumatic pneumothorax/chest tube, normal EGD in 2016. SOCIAL HISTORY: The patient resides at [facility]. No alcohol, tobacco, or drug use. FAMILY HISTORY: Noncontributory. ALLERGIES: NO KNOWN DRUG ALLERGIES. OUTPATIENT MEDICATIONS: 1. Keppra. 2. Hydroxyzine. 3. Renvela. 4. Zoloft. 5. Pantoprazole 40 mg daily. 6. Zofran p.r.n. 7. Metoprolol. 8. Melatonin. 9. Insulin Lantus 14 units subcu in the morning. 10. Neurontin. 11. Multiple eyedrops. 12. Amlodipine. 13. Tylenol p.r.n. PHYSICAL EXAMINATION: VITAL SIGNS: Blood pressure 193/98, pulse 60, 98% oxygen saturation on room air. GENERAL: She is awake and alert, oriented x3. She is able to follow commands and answer questions appropriately. She appears chronically ill. SKIN: No jaundice. No rashes were palpable. HEENT: Eyes are both closed. She is status post right eye enucleation. ENT; mucous membranes moist. No oral lesions. LYMPH: No submandibular or supraclavicular lymphadenopathy. THYROID: Nontender to palpation. HEART: Regular rate and rhythm. LUNGS: Clear to auscultation bilaterally. ABDOMEN: Nondistended. Bowel sounds present. Soft and nontender to palpation throughout. No masses or organomegaly appreciated. EXTREMITIES: No peripheral edema. VESSELS: Radial pulses 2+ bilaterally. NEURO: Moves all extremities. LABORATORY STUDIES: Hemoglobin 4.8, hematocrit 14.7, WBC 11.6, platelets 208. Sodium 141; potassium 5.8; BUN 63; creatinine 8.36; glucose initially 41, now up to 162; magnesium 2.9. Total bilirubin 0.6, alkaline phosphatase 362, AST 17, ALT 9, troponin only 0.018, albumin 4.4. ASSESSMENT AND PLAN: 1. Acutely worsening anemia, concern for acute blood loss. 2. History of anemia of chronic kidney disease. 3. Possible melena. Note, the FOBT here was negative, but stool was characterized as dark, and with such an acute hemoglobin decline over the past 2 months, concern remains for gastrointestinal bleeding lesion subacutely. 4. Prior history of recurrent C difficile infection. She had multiple treatment modalities including FMT, multiple rounds of vancomycin and finally a course of Dificid in October 2019. Currently, she is not complaining of diarrhea and there is no abdominal tenderness. 5. Recent hospitalization with COVID. This was over a month ago and she is now asymptomatic. Most concerning is this significant hemoglobin decline from 13.6 in August, now down to 4.8. The dark stools are concerning for melena despite the negative FOBT. Notably, her colonoscopy was essentially negative as recently as March 2019, but her last EGD was about 5 years ago. Agree with the IV Protonix and 2 units RBC plan for today. Trend H and H, with further transfusion as needed. We are going to plan on diagnostic EGD tomorrow. The patient will be n.p.o. after midnight for the examination. Thank you for the consultation. Please call anytime with questions or concerns. Job ID: [id number]
[2020-11-23] MEDS ORDERED: Pantoprazole 40 MG VIAL IVP SCH (21:00)
[2020-11-23] MEDS: levETIRAcetam 500 MG TAB PO SCH (22:39)
[2020-11-23] MEDS: hydrALAZINE 20 MG/ML VIAL SLOW IVP PRN (22:39)
[2020-11-23 23:53] LABS: Anion Gap 18 mmol/L (10-20); BUN (Urea Nitrogen) 68 mg/dL (7.0-18.7); Calc. Creatinine Clearance 6 mL/min (70-130); Calcium 8.7 mg/dL (7.8-10.44); Carbon Dioxide 25 mmol/L (22-29); Chloride 98 mmol/L (98-107); Glucose 198 mg/dL (70-105); Potassium 6.1 mmol/L (3.5-5.1); Sodium 135 mmol/L (136-145)
[2020-11-23 23:58] LABS: #Basophils 0.1 thou/uL (0.0-0.2); #Eosinphils 0.5 thou/uL (0.0-0.7); #Lymphocytes 1.3 thou/uL (1.20-3.40); #Monocytes 0.3 thou/uL (0.11-0.59); #Neutrophils 3.8 thou/uL (1.40-6.50); %Eosinophils 8.5 % (0.0-10.0); %Lymphocytes 21.6 % (21.0-51.0); %Monocytes 4.6 % (0.0-10.0); %Neutrophils 64.3 % (42.0-75.0); Hemoglobin 11.5 g/dL (12.0-16.0); Mean Corpuscular HGB CONC 33.9 g/dL (32.0-36.0); Mean Corpuscular Hemoglobin 30.2 pg (27.0-31.0); Mean Corpuscular Volume 89.1 fL (78.0-98.0); Mean Platelet Volume 8.9 fL (7.4-10.4); Platelet Count 88 thou/uL (130-400); Red Blood Cell (RBC) Count 3.82 mill/uL (4.20-5.40); White Blood Cell (WBC) Count 5.9 thou/uL (4.8-10.8)
[2020-11-24] LABS: Platelet Morphology Comment Appears Decreased
[2020-11-24 04:51] LABS: Anion Gap 23 mmol/L (10-20); BUN (Urea Nitrogen) 70 mg/dL (7.0-18.7); Calc. Creatinine Clearance 6 mL/min (70-130); Calcium 8.5 mg/dL (7.8-10.44); Carbon Dioxide 21 mmol/L (22-29); Chloride 98 mmol/L (98-107); Glucose 170 mg/dL (70-105); Sodium 135 mmol/L (136-145)
[2020-11-24 04:56] LABS: Potassium 7.2 mmol/L (3.5-5.1)
[2020-11-24 05:26] LABS: #Basophils 0.1 thou/uL (0.0-0.2); #Eosinphils 0.8 thou/uL (0.0-0.7); #Lymphocytes 3.8 thou/uL (1.20-3.40); #Monocytes 0.3 thou/uL (0.11-0.59); #Neutrophils 4.5 thou/uL (1.40-6.50); %Basophils 0.9 % (0.0-1.0); %Eosinophils 8.1 % (0.0-10.0); %Lymphocytes 40.3 % (21.0-51.0); %Monocytes 3.2 % (0.0-10.0); %Neutrophils 47.5 % (42.0-75.0); Burr Cells SLIGHT = 2-5 cells (100X) (0-1/hpf); Hemoglobin 10.7 g/dL (12.0-16.0); MDiff Complete? YES; Mean Corpuscular HGB CONC 33.5 g/dL (32.0-36.0); Mean Corpuscular Hemoglobin 29.2 pg (27.0-31.0); Mean Corpuscular Volume 87.3 fL (78.0-98.0); Mean Platelet Volume 9.8 fL (7.4-10.4); Platelet Count 72 thou/uL (130-400); Platelet Morphology Comment Appears Decreased; RBC Distribution Width 16.3 % (11.5-14.5); Red Blood Cell (RBC) Count 3.67 mill/uL (4.20-5.40); White Blood Cell (WBC) Count 9.5 thou/uL (4.8-10.8)
[2020-11-24] MEDS ORDERED: HumaLOG 300 UNITS/3 ML VIAL SC SCH (05:30)
[2020-11-24] MEDS ORDERED: Dextrose 50% Abboject 50 ML SYRINGE SLOW IVP SCH (05:30)
[2020-11-24] MEDS: hydrALAZINE 20 MG/ML VIAL SLOW IVP PRN ×3 (05:43→15:09)
[2020-11-24] MEDS ORDERED: Calcium Gluc 4.6 MEQ/10 ML (100 MG/ML) SLOW IVP SCH (07:00)
[2020-11-24] MEDS ORDERED: Calcium Gluconate 4.6 MEQ in Sodium Chloride 0.9% 100 ML IVPB SCH (08:15)
[2020-11-24] MEDS ORDERED: Epoetin (ESRD) 20,000 UNITS/ML SC SCH (08:45)
[2020-11-24] MEDS: Dextrose 10% in Water 1,000 ML IV SCH ×2 (11:05→17:07)
[2020-11-24] MEDS ORDERED: PROPOFOL 200 MG/20 ML VIAL ONE (11:30)
[2020-11-24] MEDS ORDERED: EPOETIN ALFA-EPBX (ESRD) 4,000 UNIT/ML VIAL SC SCH (12:00)
[2020-11-24] MEDS ORDERED: Lorazepam 2 MG/ML VIAL SLOW IVP PRN (12:49)
[2020-11-24] MEDS ORDERED: Lorazepam 2 MG/ML VIAL SLOW IVP SCH (13:00)
--- NOTE | 2020-11-24 14:19 | PRG ---
DATE OF SERVICE: 11/24/2020 SUBJECTIVE: Ms. Thao is a 45-year-old female, [facility] patient, with known history of ESRD - on maintenance hemodialysis and was admitted for symptomatic anemia. She received several units of packed RBC yesterday. We are following her up for management of her ESRD. This morning, her potassium was elevated at 7.2. For this reason, she is undergoing emergent hemodialysis. No other complaints. No chest pain or shortness of breath. She tells me she feels better. OBJECTIVE: VITAL SIGNS: Blood pressure is 198/90, heart rate 66. GENERAL: The patient is awake, comfortable, not in overt distress. SKIN: Adequate turgor. HEENT: Slightly pale conjunctivae. Anicteric sclerae. No neck mass. No carotid bruits. No JVD. CHEST: No deformities. LUNGS: Clear breath sounds. HEART: Normal sinus rhythm. No murmur. No gallops. No rubs. ABDOMEN: Globular. Soft. Nontender. No masses. EXTREMITIES: No edema. No deformities. NEUROLOGICAL: The patient is noted to have decreased visual activity - blind on one eye. MEDICATIONS: November 24, 2020, reviewed. LABORATORY DATA: November 24, 2020; hemoglobin 10.7, hematocrit 32.1. November 23, 2020; hemoglobin was 4.8. November 24, 2020; sodium 135, potassium 7.2, chloride 98, carbon dioxide 21, BUN 70, creatinine 8.77, glucose 170. ASSESSMENT AND PLAN: 1. End-stage renal disease - due to the hyperkalemia, an emergent hemodialysis is being done. We will plan to do her for 3 to 3.5 hours of hemodialysis with also fluid removal. 2. Hyperkalemia - emergent hemodialysis. 3. We will maintain this patient on her current hemodialysis regimen on Sunday, Sunday, and Sunday. 4. Anemia. GI consult has been done. Hemoglobin is improved. I will resume the patient's Epogen of 10,000 units subcu every week. 5. Overall prognosis remains guarded. Job ID: [id number]
--- NOTE | 2020-11-24 14:23 | PDOC.HOSPP ---
- Subjective Encounter Date: 11/24/20 Encounter Time: 14:00 Subjective: patient seen at end of HD, before EGD. very agitated, anxious, requiring ativan and screaming at nurses. no chest pain or shortness of breath observed. - Objective Vital Signs & Weight: Vital Signs (12 hours) Temp Pulse Resp BP BP Pulse Ox 11/24/20 10:16 72 11/24/20 07:20 169/80 H 11/24/20 07:15 72 169/80 H 11/24/20 05:43 66 215/97 H 11/24/20 04:00 98.5 F 53 L 16 212/97 H 99 Weight Admit Weight 94 lb 11.2 oz Weight 94 lb 11.2 oz I&O: 11/23/20 11/24/20 11/25/20 06:59 06:59 06:59 Intake Total 1400 Balance 1400 Result Diagrams: 11/24/20 04:18 11/24/20 04:18 Additional Labs: Accuchecks 11/24/20 11/24/20 11/24/20 06:12 04:07 01:53 POC Glucose 255 H 165 H 153 H 11/23/20 11/23/20 11/23/20 23:17 22:03 20:21 POC Glucose 189 H 267 H 274 H 11/23/20 11:35 POC Glucose 43 L* reviewed Radiology Reviewed by me: Yes Hospitalist ROS - Medication Medications: Active Medications Generic Name Dose Route Start Last Admin Trade Name Freq PRN Reason Stop Dose Admin Hydralazine HCl 10 mg 11/23/20 20:42 11/24/20 10:16 Hydralazine 20 Mg/Ml Vial SLOW IVP 10 mg Q4H PRN Administration SBP Greater Than 180 Pantoprazole Sodium 80 mg/ 100 mls @ 10 mls/hr 11/23/20 14:00 11/24/20 05:21 Miscellaneous Medication 1 IVPB 100 mls each/ Sodium Chloride INF MEGAN Administration Dextrose/Water 1,000 mls @ 50 mls/hr 11/23/20 14:15 11/24/20 11:05 Dextrose 10% In Water IV Not Given .Q20H MEGAN Insulin Human Lispro 0 units 11/23/20 13:36 11/23/20 20:26 Humalog 300 Units/3 Ml Vial SC 4 unit .MILD SLIDING SCALE PRN Administration Mild Correctional Scale Levetiracetam 500 mg 11/23/20 21:00 11/23/20 22:39 Levetiracetam 500 Mg Tab PO 500 mg BID MEGAN Administration Lorazepam 1 mg 11/24/20 13:00 11/24/20 12:58 Lorazepam 2 Mg/Ml Vial SLOW IVP 11/24/20 15:00 1 mg NOW MEGAN Administration - Exam General - other findings: axitated, anxious Eye: PERRL, anicteric sclera ENT: normocephalic atraumatic, no oropharyngeal lesions, moist mucosa Neck: supple, symmetric, no JVD, no thyromegaly, no lymphadenopathy, no carotid bruit Heart: RRR, no murmur, no gallops, no rubs, normal peripheral pulses Respiratory: CTAB, no wheezes, no rales, no ronchi, normal chest expansion, no tachypnea, normal percussion Gastrointestinal: soft, non-tender, non-distended, normal bowel sounds, no palpable masses, no hepatomegaly, no splenomegaly, no bruit Extremities: no cyanosis, no clubbing, no edema Skin: normal turgor, no lesions, no rashes Psychiatric: not oriented Hosp A/P (1) Anemia Code(s): D64.9 - ANEMIA, UNSPECIFIED Status: Acute (2) ESRD (end stage renal disease) on dialysis Code(s): N18.6 - END STAGE RENAL DISEASE; Z99.2 - DEPENDENCE ON RENAL DIALYSIS Status: Acute (3) Diabetes mellitus with diabetic polyneuropathy Code(s): E11.42 - TYPE 2 DIABETES MELLITUS WITH DIABETIC POLYNEUROPATHY Status: Chronic (4) Acute metabolic encephalopathy Code(s): G93.41 - METABOLIC ENCEPHALOPATHY Status: Resolved (5) Hyperkalemia Code(s): E87.5 - HYPERKALEMIA Status: Resolved - Plan 45F admitted for: # anemia - presumed secondary to Upper GI bleed # gastropathy # esophagitis - EGD w/ findings of gastropathy, esophagitis, polyps. apprecaite GI assistance and expertise - no colonoscopy indicated, continue IV PPI BID - liquid diet per GI recommendations # hypoglycemia - was getting very low sugar < 50s, now improved and rebounding to over 400, concern that may be T1DM, in which case labile sugars are possibly going to progress to DKA, will try to prevent this as best I can - increase SSI to moderate, continue Q4h sugar checks and SSI # ESRD # hyperkalemia - patient underwent HD today, recheck BMP in AM, no EKG changes reported previously - appreciate nephrology assistance with HD
[2020-11-24] MEDS: levETIRAcetam 500 MG TAB PO SCH ×2 (15:19→21:32)
--- NOTE | 2020-11-24 15:27 | OP ---
DATE OF PROCEDURE: 11/24/2020 PROCEDURE PERFORMED: EGD with biopsy. INDICATIONS FOR PROCEDURE: Anemia, possible melena. DESCRIPTION OF PROCEDURE: After the risks and benefits of the procedure were explained to the patient including risks of bleeding, infection, perforation, reactions to anesthesia, aspiration, and/or pain, informed consent was obtained. The patient was then taken to the endoscopy suite, where she was maneuvered into the left lateral decubitus position followed by introduction of deep sedation via propofol and anesthesia support. Once adequate sedation was achieved, the standard gastroscope was introduced into the mouth with intubation of the esophagus, stomach, and the proximal small intestines with the findings listed below. The patient tolerated the procedure well with no immediate perioperative complications. On conclusion of the procedure, all equipment was removed from the patient and she was transferred to PACU in satisfactory condition. FINDINGS: Esophagus: Normal-appearing mucosa was seen in the proximal esophagus; however, mild fibrinous exudate with underlying nonbleeding small erosions were seen in the mid esophagus extending approximately 1 cm in length. These erosions were linear in formation, but did not exhibit any evidence of overt ulceration or active bleeding. Mucosa seen in the distal esophagus was normal with no evidence of any additional exudation or esophagitis/inflammation. Normal-appearing mucosa was also seen at the GE junction with no evidence of acid reflux or Hooper esophagus. Otherwise, there was no evidence of overt ulcerations, mass lesions, or active/recent bleeding. Stomach: Diffuse mucosal erythema was seen throughout the entire stomach in a mosaic-type pattern that was extremely friable to the passage of the gastroscope and a suctioning within the stomach itself. It did exhibit a mild nodular appearance that was most pronounced within the gastric antrum resulting in almost overt polyp formation. However, there was no evidence of erosions, ulcerations, mass lesions, or recent bleeding (mild oozing of blood with suctioning). Given the increased mucosal erythema, random biopsies were taken from the antrum, body, and fundus for evaluation of possible H pylori. Duodenum: Normal-appearing mucosa was seen in both the duodenal bulb and second portion of the duodenum. However, there was mild blunting of the intestinal folds (not villi) within the duodenal sweep that immediately resolved within the second portion of the duodenum. There was no evidence of erosions, ulcerations, mass lesions, or active/recent bleeding. No biopsies were taken, given that the loss of folds were only in a 1 to 2 cm segment of the duodenal sweep. IMPRESSION: 1. Mild esophagitis of the mid esophagus concerning for acid reflux (albeit atypical appearance with normal-appearing mucosa in the distal esophagus). 2. [id number] nonspecific gastropathy with increased friability, now status post random biopsies. 3. Increased nodularity of the gastric mucosa including polyp formation in the gastric antrum consistent with hyperplastic polyp formation (see biopsies as above). 4. Mild loss of duodenal folds within the duodenal sweep, but with normal- appearing duodenal bulb and second portion of the duodenum with this finding being of indeterminate significance. RECOMMENDATIONS: 1. Would continue to trend her H and H and transfuse as necessary to maintain an H and H of 7/21. 2. Continue to monitor clinically for signs of active GI bleeding. 3. Would place the patient on a liquid diet for now, given her previous diagnosis of gastroparesis. I would recommend smaller more frequent meals throughout the day again due to her diagnosis of gastroparesis, which could be potentially generating the erythema within the stomach. 4. Would follow up on the biopsy results for possible H pylori and treat if positive. 5. Colonoscopy is not indicated at this time, given the negative colonoscopy in March of 2019. 6. Would continue the patient on pantoprazole 40 mg IV b.i.d. We will continue to follow. Please call with any questions. Job ID: [id number] [facility] HOSPITALCandace
[2020-11-24] MEDS: Pantoprazole 40 MG VIAL IVP SCH (21:32)
[2020-11-25] MEDS: hydrALAZINE 20 MG/ML VIAL SLOW IVP PRN ×2 (00:08→04:37)
[2020-11-25] MEDS ORDERED: Dextrose 50% Abboject 50 ML SYRINGE SLOW IVP PRN (02:12)
[2020-11-25] MEDS ORDERED: Dextrose 5% in Water 1,000 ML IV PRN (02:12)
[2020-11-25 05:21] LABS: Anion Gap 17 mmol/L (10-20); BUN (Urea Nitrogen) 20 mg/dL (7.0-18.7); Calc. Creatinine Clearance 12 mL/min (70-130); Calcium 8.7 mg/dL (7.8-10.44); Carbon Dioxide 26 mmol/L (22-29); Chloride 95 mmol/L (98-107); Glucose 324 mg/dL (70-105); Potassium 5.9 mmol/L (3.5-5.1); Sodium 132 mmol/L (136-145)
[2020-11-25] MEDS: HumaLOG 300 UNITS/3 ML VIAL SC PRN ×2 (06:25→21:28)
[2020-11-25 07:22] LABS: #Basophils 0.1 thou/uL (0.0-0.2); #Eosinphils 0.8 thou/uL (0.0-0.7); #Lymphocytes 1.5 thou/uL (1.20-3.40); #Monocytes 0.3 thou/uL (0.11-0.59); #Neutrophils 3.9 thou/uL (1.40-6.50); %Basophils 0.9 % (0.0-1.0); %Eosinophils 12.5 % (0.0-10.0); %Lymphocytes 22.7 % (21.0-51.0); %Monocytes 4.6 % (0.0-10.0); %Neutrophils 59.2 % (42.0-75.0); Mean Corpuscular HGB CONC 32.5 g/dL (32.0-36.0); Mean Corpuscular Hemoglobin 28.9 pg (27.0-31.0); Mean Corpuscular Volume 88.7 fL (78.0-98.0); Platelet Count 98 thou/uL (130-400); RBC Distribution Width 15.9 % (11.5-14.5); Red Blood Cell (RBC) Count 3.81 mill/uL (4.20-5.40); White Blood Cell (WBC) Count 6.6 thou/uL (4.8-10.8)
[2020-11-25] MEDS ORDERED: Labetalol HCl 100 MG/20 ML VIAL SLOW IVP PRN (07:22)
[2020-11-25] MEDS ORDERED: cloNIDine 0.1 MG TAB PO PRN (07:22)
--- NOTE | 2020-11-25 08:14 | PRG ---
DATE OF SERVICE: 11/25/2020 SUBJECTIVE: Ms. Thao is a 45-year-old female with ESRD, who was admitted for symptomatic anemia. She has received several units of packed RBC. She is feeling better. GI has evaluated the patient. She also was dialyzed yesterday and her potassium was noted at 7.2. This morning, her potassium was noted at 5.9. My plan is to do another dialysis treatment with this patient. The patient voices no new complaints. She denies any chest pain or shortness of breath. OBJECTIVE: VITAL SIGNS: Blood pressure is 217/91 - this is before BP medications, heart rate 67, respiratory rate is 12, O2 saturation 98% on room air. GENERAL: The patient is awake, alert, comfortable, not in distress. SKIN: Adequate turgor. HEENT: She has pinkish conjunctivae. Anicteric sclerae. No neck mass. No carotid bruits. No JVD. CHEST: No deformities. LUNGS: Clear breath sounds. HEART: Normal sinus rhythm. No murmur. No gallops. No rubs. ABDOMEN: Globular, soft, nontender. No masses. EXTREMITIES: No edema. No deformities. NEUROLOGIC: Decreased visual activity. MEDICATIONS: Of November 25, 2020, were reviewed. LABORATORY DATA: Laboratories of November 25, 2020: Sodium 132, potassium 5.9, chloride 95, carbon dioxide 26, BUN 20, creatinine 3.96, glucose 324, calcium 8.7,. Hemoglobin 11. ASSESSMENT AND PLAN: 1. Hyperkalemia - we will do another dialysis session. My plan is to do a 3-hour hemodialysis using a 2.0 potassium bath. I do anticipate that this will help normalize the potassium. We will resume back her regular dialysis this coming Sunday. 2. End-stage renal disease, extra hemodialysis today due to the hyperkalemia. Fluid removal only as tolerated. 3. Symptomatic anemia, much improved with blood transfusion. GI is following. We will recheck CBC and basic metabolics in a.m. Job ID: [id number]
[2020-11-25] MEDS: Amlodipine 10 MG TAB PO SCH (08:16)
[2020-11-25] MEDS: levETIRAcetam 500 MG TAB PO SCH ×2 (08:17→21:28)
[2020-11-25] MEDS: hydrALAZINE 25 MG TAB PO SCH ×2 (08:17→21:28)
[2020-11-25] MEDS: Pantoprazole 40 MG VIAL IVP SCH (08:19)
--- NOTE | 2020-11-25 09:08 | PDOC.HOSPP ---
- Subjective Encounter Date: 11/25/20 Encounter Time: 09:07 Subjective: Patient was seen and examined in bed. She remained stable overnight if no acute events She denies any chest pain abdominal pain or shortness of breath. She is asking when she can start eating - Objective Vital Signs & Weight: Vital Signs (12 hours) Temp Pulse Resp BP BP BP Pulse Ox 11/25/20 08:17 70 211/84 H 11/25/20 08:16 70 211/84 H 11/25/20 07:59 98.1 F 70 18 211/84 H 94 L 11/25/20 04:37 71 217/91 H 11/25/20 04:35 67 217/91 H 11/25/20 00:08 66 200/100 H 11/24/20 23:26 98.7 F 66 12 200/100 H 98 Weight Admit Weight 94 lb 11.2 oz Weight 94 lb 11.2 oz I&O: 11/24/20 11/25/20 11/26/20 06:59 06:59 06:59 Intake Total 1400 800 Balance 1400 800 Result Diagrams: 11/25/20 07:06 11/25/20 04:33 Additional Labs: Accuchecks 11/25/20 11/25/20 11/24/20 04:31 03:08 23:20 POC Glucose 320 H 334 H 430 H 11/24/20 20:16 POC Glucose 496 H Hospitalist ROS - Review of Systems All other systems reviewed; all pertinent +/- noted in HPI/Subj - Medication Medications: Active Medications Generic Name Dose Route Start Last Admin Trade Name Freq PRN Reason Stop Dose Admin Amlodipine Besylate 10 mg 11/25/20 09:00 11/25/20 08:16 Amlodipine 10 Mg Tab PO 10 mg DAILY MEGAN Administration Clonidine 0.1 mg 11/25/20 07:22 11/25/20 08:17 Clonidine 0.1 Mg Tab PO 0.1 mg BID PRN Administration SBP > 160 use second Epoetin Rafat-epbx 7,500 unit 11/24/20 12:00 11/24/20 15:19 Epoetin Rafat-Epbx (Esrd) 4,000 Unit/Ml Vial SC 7,500 unit Q7D MEGAN Administration Hydralazine HCl 10 mg 11/23/20 20:42 11/25/20 04:37 Hydralazine 20 Mg/Ml Vial SLOW IVP 10 mg Q4H PRN Administration SBP Greater Than 180 Hydralazine HCl 25 mg 11/25/20 09:00 11/25/20 08:17 Hydralazine 25 Mg Tab PO 25 mg BID MEGAN Administration Insulin Human Lispro 0 units 11/25/20 02:12 11/25/20 06:25 Humalog 300 Units/3 Ml Vial SC 8 unit .MODERATE SLIDING SC PRN Administration Moderate Correctional Scale Levetiracetam 500 mg 11/23/20 21:00 11/25/20 08:17 Levetiracetam 500 Mg Tab PO 500 mg BID MEGAN Administration Pantoprazole Sodium 40 mg 11/24/20 21:00 11/25/20 08:19 Pantoprazole 40 Mg Vial IVP 40 mg Q12HR MEGAN Administration - Exam General Appearance: awake alert General - other findings: In no acute distress. Eye - other findings: Blind bilaterally. Heart: RRR, no murmur, no gallops, no rubs Respiratory: CTAB, no wheezes, no rales, no ronchi Gastrointestinal: soft, non-tender, non-distended, normal bowel sounds Extremities: no cyanosis, no clubbing, no edema Neurological: cranial nerve grossly intact (Otherwise legally blind bilaterally) Psychiatric: normal affect, A&O x 3 Hosp A/P - Plan This is a 45-year-old female patient with a history of type 1 diabetes, ESRD admitted on account of severe anemia, labile blood sugars. Severe anemia Status post EDG with gastroparesis and biopsies pending. GI followingappreciate input. Hemoglobin currently at 11 from 4.8 on admission. We will continue H&H monitoring. ESRD On dialysis Appreciate nephrology input. Hyperkalemia For dialysis today We will monitor. Diabetes mellitustype I Blood sugars labile Close monitoring and start baseline insulin. Acute metabolic encephalopathy At presentationresolved. Diabetic gastropathy Currently stable We will monitor. VT prophylaxisSCD CODE STATUSfull code
--- NOTE | 2020-11-25 14:00 | PRG ---
DATE OF SERVICE: 11/25/2020 SUBJECTIVE: Ms. Thao is receiving dialysis. She has had no overt GI bleeding since yesterday. Upper endoscopy showed mild esophagitis in the mid esophagus and gastritis. OBJECTIVE: VITAL SIGNS: Temperature is 98.1, pulse 69, blood pressure 137/67. GENERAL: She is in no acute distress. Awake and responsive. LUNGS: Clear to auscultation bilaterally. HEART: Regular rate and rhythm without murmur. ABDOMEN: Soft, nontender, and nondistended. Bowel sounds are present. EXTREMITIES: No lower extremity edema. LABORATORY DATA: Hemoglobin is 11.0, creatinine 3.96. IMPRESSION: 1. Anemia of chronic disease and chronic kidney disease. She did have some gastritis and esophagitis noted by EGD, but no significant bleeding source. Her hemoglobin was 4.8 on admission, but this appears to be a lab error as her hemoglobin has improved to 11 after only 2 units of transfusion. 2. End-stage renal disease. 3. History of gastroparesis. 4. Gastritis and esophagitis. Biopsies were negative for Helicobacter pylori. RECOMMENDATIONS: 1. Proton pump inhibitor. This can be changed to oral once daily dosing. 2. I will sign off. Please call if GI can be of assistance. Job ID: [id number]
[2020-11-26] MEDS: levETIRAcetam 500 MG TAB PO SCH (09:12)
[2020-11-26 09:33] LABS: #Eosinphils 0.7 thou/uL (0.0-0.7); #Lymphocytes 1.4 thou/uL (1.20-3.40); #Monocytes 0.3 thou/uL (0.11-0.59); #Neutrophils 2.6 thou/uL (1.40-6.50); %Basophils 0.5 % (0.0-1.0); %Eosinophils 14.3 % (0.0-10.0); %Lymphocytes 27.1 % (21.0-51.0); %Monocytes 5.9 % (0.0-10.0); %Neutrophils 52.2 % (42.0-75.0); Hemoglobin 10.6 g/dL (12.0-16.0); Mean Corpuscular Hemoglobin 29.5 pg (27.0-31.0); Mean Corpuscular Volume 89.5 fL (78.0-98.0); Platelet Count 88 thou/uL (130-400); RBC Distribution Width 15.2 % (11.5-14.5)
[2020-11-26 09:40] LABS: Anion Gap 15 mmol/L (10-20); BUN (Urea Nitrogen) 19 mg/dL (7.0-18.7); Calc. Creatinine Clearance 18 mL/min (70-130); Calcium 8.8 mg/dL (7.8-10.44); Carbon Dioxide 29 mmol/L (22-29); Chloride 96 mmol/L (98-107); Glucose 299 mg/dL (70-105); Potassium 4.4 mmol/L (3.5-5.1); Sodium 136 mmol/L (136-145)
[2020-11-26] MEDS: Amlodipine 10 MG TAB PO SCH (10:19)
[2020-11-26] MEDS: hydrALAZINE 25 MG TAB PO SCH (10:19)
[2020-11-26 12:45] VITALS: BP 140/65; TEMP 98.3
--- NOTE | 2020-11-26 13:25 | PRG ---
DATE OF SERVICE: 11/26/2020 SUBJECTIVE: Ms. Thao is a 45-year-old female with ESRD, who was initially admitted due to blood sugar problems and symptomatic anemia. She is doing better. She denies any new complaints today. She underwent a 2-hour hemodialysis today with fluid removal. She was also noted to be initially hyperkalemic, which is now much improved with dialysis. No complaints of chest pain or shortness of breath. OBJECTIVE: VITAL SIGNS: Blood pressure 140/65, heart rate 74, respiratory rate 18, temperature 98.3, O2 saturation 96%. GENERAL: The patient is awake, alert, comfortable, not in distress. SKIN: Adequate turgor. HEENT: Slightly pale conjunctivae. Anicteric sclerae. No neck mass. No carotid bruits. No JVD. Positive for decreased visual acuity. LUNGS: Clear breath sounds. No wheezing. No crackles. HEART: Normal sinus rhythm. No murmur. No gallops. No rubs. ABDOMEN: Globular, soft, nontender. No masses. EXTREMITIES: No edema. No deformities. NEUROLOGICAL: Moving all extremities. No tremors. No asterixis. No ataxia. MEDICATIONS: Of November 26, 2020 reviewed. LABORATORY DATA: Of November 26, 2020: White count 5, hemoglobin 10.6. Sodium 136, potassium 4.4, chloride 96, carbon dioxide 29, BUN 19, creatinine 2.72, calcium 8.8. ASSESSMENT AND PLAN: 1. Hyperkalemia resolved with hemodialysis . 2. End-stage renal dialysis the patient underwent her regular hemodialysis regimen today. Fluid removal was done. Please note, potassium is much improved. 3. Anemia, continuing weekly Epogen. 4. Agree with current management. Job ID: [id number] [facility]OSPITALCandace
[2020-11-26] MEDS: HumaLOG 300 UNITS/3 ML VIAL SC PRN (17:31)
--- NOTE | 2020-11-27 15:22 | EKG ---
Test Reason : Blood Pressure : / mmHG Vent. Rate : 062 BPM Atrial Rate : 062 BPM P-R Int : 154 ms QRS Dur : 088 ms QT Int : 458 ms P-R-T Axes : 048 078 071 degrees QTc Int : 464 ms Normal sinus rhythm Possible Left atrial enlargement Borderline ECG Confirmed by EARLENE NEGRON, MARKOS ([id number]), content editor JUAN MANUEL DOUGLASS ([id number]) on 11/27/2020 3:21:56 PM Referred By: Confirmed By:MARKOS HENAO MD
--- NOTE | 2020-11-29 04:28 | PQF ---
CLINICAL DOCUMENTATION CLARIFICATION FORM: Dear : Justin Hannon Date / Time: 11/29/20 04:27 Please exercise your independent, professional judgment in responding to the clarification form. Clinical indicators are provided on the bottom of this form for your review Can you please specify the etiology of patients GI Bleed? Please check appropriate box(es): [ ] Gastritis [ ] Reflux esophagitis [ ] Gastroparesis [ ] Other diagnosis, please specify [ ] Unable to determine Physician Signature: Date/Time: For continuity of documentation, please document condition throughout progress notes and discharge summary. Thank You. To be completed by CDI/Coding staff for physician review: Present Clinical Indicators - Signs / Symptoms / Labs Results and Location in Medical Record [x] GI bleed ED Notes 11/23 [x] noted dark stool HP 11/23 [x] possible melena Consult 11/23 [x] Concern remains for gastrointestinal bleeding lesion subacutely Consult 11/23 [x] Anemia presumed secondary to upper GI bleed PN 11/24 Present Risk Factors Results and Location in Medical Record [x] DM with gastroparesis ED Notes 11/23 [x] Acute blood loss anemia HP 11/23 [x] GERD with esophagitis ED Notes 11/23 [x] Gastritis OP Note 11/24 Present Treatments Results and Location in Medical Record [x] EGD with biopsy OP Note 11/24 [x] Gastroenterology Consult Consult 11/23 [x] Pantoprazole 40mg Oral MAR 11/17 [x] IVF MAR 11/23 [x] RBC blood transfusion Blood transfusion 11/23 CDS/Motion Picture Camera Lens Technician Signature:Evaristo Vang Phone #: [phone] Date/Time:11/29/20 This is a permanent part of the Medical Record [facility]
== END 2020-11-26 18:45 | DRG 377 ==
LOC: ERS 11:20 → ONC 16:47
PROVIDERS: ADMIT Internal Medicine; ATTEND Internal Medicine
PROC: 30233N1 Transfusion of Nonautologous Red Blood Cells into Peripheral Vein, Percutaneous Approach (ICD-10-PCS; 2020-11-23)
PROC: 0DB68ZX Excision of Stomach, Via Natural or Artificial Opening Endoscopic, Diagnostic (ICD-10-PCS; principal; 2020-11-24)
PROC: 0DB78ZX Excision of Stomach, Pylorus, Via Natural or Artificial Opening Endoscopic, Diagnostic (ICD-10-PCS; 2020-11-24)
PROC: 5A1D70Z Performance of Urinary Filtration, Intermittent, Less than 6 Hours Per Day (ICD-10-PCS; 2020-11-24)
DX: K92.2 Gastrointestinal hemorrhage, unspecified (principal); G93.41 Metabolic encephalopathy; N18.6 End stage renal disease; D62 Acute posthemorrhagic anemia; I12.0 Hypertensive chronic kidney disease with stage 5 chronic kidney disease or end stage renal disease; N25.81 Secondary hyperparathyroidism of renal origin; Z86.16 Personal history of COVID-19; E10.22 Type 1 diabetes mellitus with diabetic chronic kidney disease; E10.40 Type 1 diabetes mellitus with diabetic neuropathy, unspecified; E10.649 Type 1 diabetes mellitus with hypoglycemia without coma; Z99.2 Dependence on renal dialysis; D63.1 Anemia in chronic kidney disease; E87.5 Hyperkalemia; I25.10 Atherosclerotic heart disease of native coronary artery without angina pectoris; H54.7 Unspecified visual loss; F41.9 Anxiety disorder, unspecified; F32.9 Major depressive disorder, single episode, unspecified; K21.00 Gastro-esophageal reflux disease with esophagitis, without bleeding; K31.9 Disease of stomach and duodenum, unspecified; K29.70 Gastritis, unspecified, without bleeding; Z98.51 Tubal ligation status; Z79.899 Other long term (current) drug therapy
CPT/HCPCS: 36415; 36416; 36430; 80048; 80053; 83735; 84484; 85025; 86850; 86900; 86901; 88305; 88312; 90935; 93005; 96365; 96374; C9113; G0257; J0360; J2060; J2704; J3490; P9016; Q5105

== ENCOUNTER 2020-12-07 17:23 | Inpatient (IN) | payer OTHER ==
[2020-12-07] MEDS ORDERED: Ondansetron PF 4 MG/2 ML Vial ONE (18:20)
[2020-12-07] MEDS ORDERED: Morphine 4 MG/ML VIAL ONE (18:20)
[2020-12-07] MEDS ORDERED: Labetalol HCl 100 MG/20 ML VIAL ONE (18:20)
[2020-12-07 18:30] LABS: Hemoglobin 10.4 g/dL (12.0-16.0); Mean Corpuscular HGB CONC 33.2 g/dL (32.0-36.0); Mean Corpuscular Hemoglobin 29.4 pg (27.0-31.0); Mean Corpuscular Volume 88.7 fL (78.0-98.0); Mean Platelet Volume 9.1 fL (7.4-10.4); Platelet Count 116 thou/uL (130-400); RBC Distribution Width 14.3 % (11.5-14.5); Red Blood Cell (RBC) Count 3.53 mill/uL (4.20-5.40); White Blood Cell (WBC) Count 5.4 thou/uL (4.8-10.8)
--- NOTE | 2020-12-07 18:35 | RAD ---
Portable frontal chest radiograph: 12/07/2020 COMPARISON: 10/22/2020 HISTORY: End-stage renal disease, dialysis, pain FINDINGS: Heart and mediastinal contours are stable. No pneumothorax or pleural fluid. No lobar consolidation o r alveolar edema. Nonspecific right perihilar interstitial opacity is noted, improved when compared to the prior exam. IMPRESSION: Nonspecific right perihilar interstitial prominence, improved when compared to the prior examination. Findings suggest edema or less likely inflammatory/infectious pneumonitis. No lobar consolidation or alveolar edema.
[2020-12-07 18:49] LABS: ALT (SGPT) 53 U/L (8-55); AST (SGOT) 88 U/L (5-34); Albumin 4.4 g/dL (3.5-5.0); Alkaline Phosphatase 477 U/L (40-110); Anion Gap 18 mmol/L (10-20); BUN (Urea Nitrogen) 68 mg/dL (7.0-18.7); Bilirubin, Total 0.5 mg/dL (0.2-1.2); Calc. Creatinine Clearance 0 mL/min (70-130); Calcium 9.5 mg/dL (7.8-10.44); Carbon Dioxide 32 mmol/L (22-29); Chloride 91 mmol/L (98-107); Globulin 3.3 g/dL (2.4-3.5); Glucose 263 mg/dL (70-105); Lipase 8 U/L (8-78); Magnesium 2.4 mg/dL (1.6-2.6); Protein, Total 7.7 g/dL (6.0-8.3); Sodium 135 mmol/L (136-145)
[2020-12-07 19:01] LABS: Eosinophils 13 % (0-10); Lymphocytes 25 % (21-51); MDiff Complete? YES; Monocytes 1 % (0-10); Neutrophil 60 % (42-75); Platelet Morphology Comment Appears Decreased; Polychromasia SLIGHT = 2-3 cells (100X) (0-2/hpf)
--- NOTE | 2020-12-07 19:39 | CT ---
CT of the abdomen and pelvis: 12/07/2020 COMPARISON: 10/22/2020 HISTORY: Abdominal pain TECHNIQUE: Axial CT imaging at 5 mm intervals from the lung bases through the pubic symphysis with in travenous contrast. Coronal and sagittal reformatted imaging obtained. FINDINGS: The visualized lung bases demonstrate trace pleural fluid on the right, improved when tony red to the prior CT. There is mild bibasilar increased linear interstitial density, right greater than left, also improved when compared to the prior exam. No free intraperitoneal air is appreciated. There is no focal liver lesion identified. The gallbladder is distended and demonstrates wall thicken ing, a nonspecific finding which is similar when compared to the 12/22/2019 exam. There is mild nonspecific intrahepatic biliary dilatation involving the right and left lobes of the liver, also sta ble when compared to the prior examination. There is a stable peripheral area of hypodensity involving the spleen posteriorly which may be associ ated with prior splenic infarction. The pancreas is nonvisualized suggesting severe fatty atrophy. There is cortical thinning involving both kidneys, stable when compared to the prior exam. There is a round low-density lesion within the lower pole of the left kidney measuring 3.2 cm in craniocaudal dimension, unchanged when compared to the prior examination. It demonstrates internal subtle linear d ensity and nodularity and thus, is not consistent with a simple cyst. Stable prominent cyst upper pole right kidney. The rectum is expanded and filled with stool which may signify fecal impaction. There is mild strandi ng of the adjacent fat in the presacral space and there is mild colonic wall thickening. Findings may be related to stercoral colitis. There is wall prominence of the urinary bladder which may be sec ondary to inflammatory change or underdistention. Significant stool is seen throughout the colon. No evidence for bowel obstruction is seen. There is fluid within a mildly prominent stomach. There are a few mildly thick walled loops of small bowel within the central aspect of the left abdomen which may signify a degree of inflammatory change or underdistention. Extensive atherosclerotic calcification of the abdominal aorta and its bra nches noted. No abdominal or pelvic lymphadenopathy is seen. There is diffuse increased density within the osseous structures suggesting renal osteodystrophy. IMPRESSION: 1. The rectum is expanded and filled with stool and there is adjacent mild fat stranding and colonic wall thickening. Findings suggest fecal impaction with possible associated stercoral colitis. 2. Mild wall prominence of small bowel within the left abdomen as detailed above 3. Distended gallbladder with gallbladder wall thickening and mild intrahepatic biliary dilatation, n onspecific and stable. Correlation with LFTs advised. Right upper quadrant ultrasound may be beneficial if clinically warranted. 4. Wall thickening of the urinary bladder as detailed above. 5. Lesion within the lower pole of the left kidney, nonspecific. Follow-up CT of the abdomen with and without IV contrast advised. CODE T
[2020-12-07] MEDS ORDERED: Sodium Bicarb 50 MEQ/50 ML Abboject 8.4% SYRINGE ONE (20:00)
[2020-12-07] MEDS ORDERED: Dextrose 50% Abboject 50 ML SYRINGE ONE (20:00)
[2020-12-07] MEDS ORDERED: Insulin Regular 300 UNITS/3 ML VIAL ONE (20:00)
[2020-12-07] MEDS ORDERED: Calcium Chloride 1 GM/10 ML Abboject SYRINGE ONE (20:00)
--- NOTE | 2020-12-07 21:23 | ULT ---
Right upper quadrant ultrasound: 12/07/2020 COMPARISON: 10/22/2020 HISTORY: Abnormal gallbladder seen on recent CT examination TECHNIQUE: Multiplanar grayscale sonographic imaging of the right upper quadrant provided. FINDINGS: The pancreas is not well seen on this examination. No focal liver lesion is identified. The common bile duct measures 6 mm, within normal limits. There is trace free fluid adjacent to the right lobe of the liver. The gallbladder demonstrates mild distention. There is a 5 mm gallbladder polyp present. The gallbladder wall is upper limits of normal in thickness. The right kidney demonstrates cortical t hinning and contains a complex appearing upper pole right renal cyst measuring up to 3.2 cm. Detailed assessment of the right kidney is limited secondary to atrophy, bowel gas, and cortical thin sosa. There is small volume pericholecystic fluid. No discrete gallstones are seen. The lead recreation assistant reports a positive Nayak's sign. IMPRESSION: Mild pericholecystic fluid with upper limits of normal gallbladder thickness. No gallston es are seen but the lead recreation assistant reports a positive Nayak's sign. Acute cholecystitis cannot be fully excluded in the proper clinical setting. This could be better assessed via follow-up hepatobili missy scan as clinically warranted. Findings suggesting a complex cyst in the upper pole of the right kidney for which follow-up CT of th e abdomen is obtained with and without contrast using a renal mass protocol CODE T
[2020-12-07] MEDS ORDERED: Piperacillin/Tazobactam 3.375 GM VIAL ONE (21:58)
[2020-12-07] MEDS ORDERED: cloNIDine 0.1 MG TAB PO PRN ×2 (22:04→23:49)
[2020-12-07] MEDS ORDERED: hydrALAZINE 20 MG/ML VIAL SLOW IVP PRN ×2 (22:04→23:49)
[2020-12-07] MEDS: Labetalol HCl 100 MG/20 ML VIAL SLOW IVP PRN (23:06)
[2020-12-07 23:42] VITALS: BMI 24.3
[2020-12-07] MEDS ORDERED: Acetaminophen 325 MG TAB PO PRN (23:49)
[2020-12-07] MEDS ORDERED: Guaifenesin DM 100-10/5 ML UDCUP PO PRN (23:49)
[2020-12-07] MEDS ORDERED: Ondansetron PF 4 MG/2 ML Vial IVP PRN (23:49)
[2020-12-07] MEDS ORDERED: Labetalol HCl 100 MG/20 ML VIAL SLOW IVP PRN (23:49)
[2020-12-07] MEDS ORDERED: HYDROcodone/Acetaminophen 5/325 mg Tablet PO PRN (23:49)
[2020-12-07] MEDS ORDERED: Promethazine HCl 12.5 MG in Sodium Chloride 0.9% 50 ML IVPB PRN (23:49)
[2020-12-07] MEDS ORDERED: Morphine 2 MG/ML VIAL SLOW IVP PRN (23:49)
--- NOTE | 2020-12-07 23:59 | PDOC.HHP ---
Hospitalist HPI - History of Present Illness Abdominal pain History of Present Illness: Patient is a 45 year old female with PMH of DM, HTN, ESRD, GERD, previous covid pneumonia who presents to ED for abdominal pain x 3 days. she reports no BM for some time, no nausea/vomiting, gets HD and last episode sunday, she denies dysuria or any other urinary changes and only urinates less than once a day. In ED, her BP was 190-210/80-90s in ED, denies chest pain/shortness of breath/headache/dizziness. she had covid a few weeks ago and some residual symptoms but no hypoxia. In ED, CT abdomen reveals rectum w/ significant stool, fat stranding, stercoral colitis, distended gallbladder w/ thickening, bladder wall thickening, L kidney lesions. US abdomen w/ positive guerrero sign, could not rule out cholecystitis. Patient admitted for further workup and care. Hospitalist ROS - Review of Systems Constitutional: denies: fever, chills, sweats, weakness, malaise, other Eyes: denies: pain, vision change, conjunctivae inflammation, eyelid inflammation, redness, other ENT: denies: ear pain, ear discharge, nose pain, nose discharge, nose congestion, mouth pain, mouth swelling, throat pain, throat swelling, other Respiratory: denies: cough, dry, shortness of breath, hemoptysis, SOB with excertion, pleuritic pain, sputum, wheezing, other Cardiovascular: denies: chest pain, palpitations, orthopnea, paroxysmal noc. dyspnea, edema, light headedness, other Gastrointestinal: reports: abdominal pain. denies: nausea, vomiting, diarrhea, constipation, melena, hematochezia, other Genitourinary: denies: dysuria, frequency, incontinence, hematuria, retention, other Musculoskeletal: denies: neck pain, shoulder pain, arm pain, back pain, hand pain, leg pain, foot pain, other Skin: denies: rash, lesions, bill, bruising, other Neurological: denies: weakness, numbness, incoordination, change in speech, confusion, seizures, other All other systems reviewed; all pertinent +/- noted in HPI/Subj - Medication Medications: Active Medications Generic Name Dose Route Start Last Admin Trade Name Freq PRN Reason Stop Dose Admin Labetalol HCl 20 mg 12/07/20 22:04 12/07/20 23:06 Labetalol Hcl 100 Mg/20 Ml Vial SLOW IVP 20 mg Q4H PRN Administration SBP > 160 use first Hospitalist History - Past Medical History Heme/Onc: reports: Anemia NOS Psych: reports: Other (Insomnia) Renal/: reports: Other (ESRD/HD) Endocrine: reports: Diabetes (Type 2), Hyperparathyroidism Other Medical History: DM, HTN, ESRD, GERD, previous covid pneumonia - Past Surgical History Past Surgical History: reports: Other, Tubal Ligation - Family History Family History: reports: diabetes mellitus - Social History Alcohol: reports: None Drugs: reports: none - Exam General Appearance: NAD, awake alert Eye: PERRL, anicteric sclera ENT: normocephalic atraumatic, no oropharyngeal lesions, moist mucosa Neck: supple, symmetric, no JVD, no thyromegaly, no lymphadenopathy, no carotid bruit Heart: RRR, no gallops, no rubs, normal peripheral pulses, murmur present, III/IV Heart - other findings: holosystolic murmur Respiratory: CTAB, no wheezes, no rales, no ronchi, normal chest expansion, no tachypnea, normal percussion Gastrointestinal: soft, non-tender, non-distended, normal bowel sounds, no palpable masses, no hepatomegaly, no splenomegaly, no bruit Extremities: no cyanosis, no clubbing, no edema Skin: normal turgor, no lesions, no rashes Neurological: cranial nerve grossly intact, normal sensation to touch, no weakness, no focal deficits, no new deficit Musculoskeletal: normal tone, normal strength, no muscle wasting Psychiatric: normal affect, normal behavior, A&O x 3 Hospitalist Results - Labs Result Diagrams: 12/07/20 18:04 12/07/20 18:04 Lab results: WBC 5.4 thou/uL (4.8-10.8) 12/07/20 18:04 Hgb 10.4 g/dL (12.0-16.0) L 12/07/20 18:04 Hct 31.4 % (36.0-47.0) L 12/07/20 18:04 MCV 88.7 fL (78.0-98.0) 12/07/20 18:04 Plt Count 116 thou/uL (130-400) L 12/07/20 18:04 Sodium 135 mmol/L (136-145) L 12/07/20 18:04 Potassium 6.0 mmol/L (3.5-5.1) H 12/07/20 18:04 Chloride 91 mmol/L (98-107) L 12/07/20 18:04 Carbon Dioxide 32 mmol/L (22-29) H 12/07/20 18:04 BUN 68 mg/dL (7.0-18.7) H 12/07/20 18:04 Creatinine 6.31 mg/dL (0.6-1.1) H 12/07/20 18:04 Glucose 263 mg/dL (70-105) H 12/07/20 18:04 Calcium 9.5 mg/dL (7.8-10.44) 12/07/20 18:04 Total Bilirubin 0.5 mg/dL (0.2-1.2) 12/07/20 18:04 AST 88 U/L (5-34) H 12/07/20 18:04 ALT 53 U/L (8-55) 12/07/20 18:04 Alkaline Phosphatase 477 U/L (40-110) H 12/07/20 18:04 Serum Total Protein 7.7 g/dL (6.0-8.3) 12/07/20 18:04 Albumin 4.4 g/dL (3.5-5.0) 12/07/20 18:04 Lipase 8 U/L (8-78) 12/07/20 18:04 Additional comment: VITAL SIGNS SunDec 07, 2020 17:35 DENISE Quarles Elizabeth BP: 212/89 MAP: 130 Pulse: 70 Resp: 26 O2 sat: 98 on (Room Air) Time: 12/07/2020 17:35. labs, imaging reports, ed documents reviewed Hospitalist H&P A/P - Plan Plan: Patient is a 45 year old female with PMH of DM, HTN, ESRD, GERD, previous covid pneumonia who presents to ED for abdominal pain x 3 days. # abdominal pain # consipation/fecal impaction - admit to floor - start daily suppository, PO bowel regimen # HTN urgency - PRN medications ordered - resume home medications - increase hydralazine # murmur - new, holosystolic, echo ordered follow up to ensure no endocarditis or other severe valvular abnormalities # ESRD - consult nephrology in AM # abnormal gallbladder distension on imaging - consult surgery in AM to determine if further testing or surgery is needed after dialysis in AM # history of covid 19 - recently dx with covid 19 - no decreased in oxygen requirements, adequate saturations # anemia - likely secondary to esrd - trend CBC DM - SSI # DVT/GI ppx
[2020-12-08] MEDS ORDERED: hydrOXYzine 25 MG TAB PO PRN (00:08)
[2020-12-08] MEDS: Labetalol HCl 100 MG/20 ML VIAL SLOW IVP PRN (04:13)
[2020-12-08 05:44] LABS: ALT (SGPT) 31 U/L (8-55); AST (SGOT) 40 U/L (5-34); Albumin 3.8 g/dL (3.5-5.0); Alkaline Phosphatase 353 U/L (40-110); Anion Gap 22 mmol/L (10-20); BUN (Urea Nitrogen) 73 mg/dL (7.0-18.7); Bilirubin, Total 0.5 mg/dL (0.2-1.2); Calc. Creatinine Clearance 9 mL/min (70-130); Calcium 9.4 mg/dL (7.8-10.44); Carbon Dioxide 29 mmol/L (22-29); Chloride 95 mmol/L (98-107); Globulin 2.3 g/dL (2.4-3.5); Glucose 243 mg/dL (70-105); Magnesium 2.4 mg/dL (1.6-2.6); Potassium 4.6 mmol/L (3.5-5.1); Protein, Total 6.1 g/dL (6.0-8.3); Sodium 141 mmol/L (136-145)
[2020-12-08] MEDS ORDERED: Dextrose 50% Abboject 50 ML SYRINGE SLOW IVP PRN (06:09)
[2020-12-08] MEDS ORDERED: Dextrose 5% in Water 1,000 ML IV PRN (06:09)
[2020-12-08 06:18] LABS: SARS-CoV-2 MS2 Positive; SARS-CoV-2 N Gene Negative; SARS-CoV-2 S Gene Negative; SARS-CoV-2 by NAA Not Detected (NotDetected); SARS-CoV-2 orf1ab Negative
[2020-12-08 06:24] LABS: Hemoglobin 9.1 g/dL (12.0-16.0); Mean Corpuscular HGB CONC 33.8 g/dL (32.0-36.0); Mean Corpuscular Hemoglobin 30.1 pg (27.0-31.0); Mean Platelet Volume 8.8 fL (7.4-10.4); Platelet Count 112 thou/uL (130-400); RBC Distribution Width 14.3 % (11.5-14.5); Red Blood Cell (RBC) Count 3.02 mill/uL (4.20-5.40); White Blood Cell (WBC) Count 5.7 thou/uL (4.8-10.8)
[2020-12-08] MEDS: HumaLOG 300 UNITS/3 ML VIAL SC PRN ×2 (06:28→17:18)
[2020-12-08 06:39] LABS: Band 2 % (5-11); Eosinophils 4 % (0-10); Hypochromia SLIGHT = 6-15 cells (100X) (0-5/hpf); Lymphocytes 22 % (21-51); MDiff Complete? YES; Monocytes 4 % (0-10); Neutrophil 68 % (42-75); Platelet Morphology Comment Appears Decreased
[2020-12-08] MEDS ORDERED: Ferric Citrate [Auryxia] 210 MG Tablet PO SCH (07:30)
[2020-12-08] MEDS: Sevelamer Carbonate 800 MG TAB PO SCH ×3 (07:58→16:31)
[2020-12-08] MEDS: hydrALAZINE 25 MG TAB PO SCH ×3 (07:59→21:58)
[2020-12-08] MEDS: Calcium Acetate 667 MG CAP PO SCH ×3 (07:59→16:31)
[2020-12-08] MEDS: Docusate 100 MG CAP PO SCH ×2 (08:00→21:51)
[2020-12-08] MEDS: levETIRAcetam 500 MG TAB PO SCH ×2 (08:00→21:51)
[2020-12-08] MEDS: Amlodipine 10 MG TAB PO SCH (08:00)
[2020-12-08] MEDS: Gabapentin 300 MG CAP PO SCH ×2 (08:00→21:51)
[2020-12-08] MEDS: Polyethylene Glycol 3350 17 GM Packet PO SCH ×3 (08:01→21:51)
[2020-12-08] MEDS: Dorzolamide HCl 2% Ophth Soln 10 ml Bottle EA EYE SCH ×3 (08:20→21:47)
[2020-12-08] MEDS: Timolol 0.5% Ophth Soln 5 ml Bottle L EYE SCH ×3 (08:21→21:47)
[2020-12-08] MEDS: Brimonidine Tartrate 0.2% Ophth Soln 5 ml Bottle EA EYE SCH ×3 (08:21→21:46)
[2020-12-08] MEDS: Atropine Sulfate 1% Ophth Soln 5 ml Bottle L EYE SCH ×2 (08:21→21:47)
[2020-12-08] MEDS: Heparin 5,000 UNITS/ML VIAL SC SCH ×2 (08:25→22:06)
[2020-12-08] MEDS ORDERED: FLU VACC QS2020-21(6MOS UP)/PF 60 MCG/0.5 ML SYRINGE IM ONE (09:00)
[2020-12-08] MEDS ORDERED: Polyethylene Glycol 3350 17 GM Packet PO SCH (09:00)
[2020-12-08] MEDS ORDERED: EPOETIN ALFA-EPBX (ESRD) 4,000 UNIT/ML VIAL SC SCH (09:15)
--- NOTE | 2020-12-08 09:19 | CON ---
DATE OF CONSULTATION: 12/08/2020 HISTORY OF PRESENT ILLNESS: Ms. Thao is a 45-year-old female who has ESRD and admitted for severe obstipation. In addition, she was also noted to be mildly hyperkalemic. As per ER report, she had some EKG changes. For that reason, she was started on Kayexalate. We are being consulted for management of her ESRD. The patient is currently undergoing her regular hemodialysis today. REVIEW OF SYSTEMS: No chest pain or shortness of breath. No nausea. No vomiting. No syncopal episode. Positive for obstipation. No nausea, no vomiting. No hematochezia. No melena. No hematemesis. No fever or chills. Appetite and energy level are decreased. MEDICATIONS: 1. Tylenol 650 mg q.4 p.r.n. 2. Norvasc 10 mg daily. 3. Atropine sulfate 1 drop left eye. 4. PhosLo 667 mg p.o. t.i.d. 5. Clonidine 0.1 mg p.o. b.i.d. 6. Colace 100 mg p.o. b.i.d. 7. Trusopt 2% ophthalmic solution as directed. 8. Gabapentin 300 mg p.o. b.i.d. 9. Heparin 5000 units subcu b.i.d. 10. Hydralazine 75 mg p.o. t.i.d. 11. Atarax 50 mg q.6 p.r.n. 12. Insulin glargine 14 units subcu q.a.m. 13. Keppra 500 mg p.o. b.i.d. 14. Melatonin 9 mg at bedtime. 15. Toprol-XL 50 mg once a day. 16. Morphine sulfate p.r.n. 17. Zofran 4 mg IV q.6. 18. Protonix 40 mg tablet once a day. 19. Auryxia 210 mg 1 tablet t.i.d. with meals. 20. MiraLAX 17 g p.o. b.i.d. 21. Sertraline 50 mg daily. 22. Renvela 800 mg 3 tablets t.i.d. with meals. 23. Timolol eye drop as directed. PAST MEDICAL HISTORY: 1. ESRD from diabetic nephropathy. 2. Type 2 diabetes mellitus. 3. Hypertension. 4. Right eye blindness. 5. History of noncompliance. 6. Diabetic gastroparesis. 7. Diabetic retinopathy. PAST SURGICAL HISTORY: Status post right eye enucleation, status post AV fistula placement, status post bilateral tubal ligation, status post cuffed dialysis catheter placement. SOCIAL HISTORY: The patient currently is a [facility] patient. Two children. No alcohol. No IV drug abuse. No smoking. Status post multiple blood transfusions. 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 Medically disabled. Education, 9th grade. ALLERGIES: NONE. TRAUMA: None. IMMUNIZATIONS: Up-to-date. HOSPITALIZATION: Please see past medical history. FAMILY HISTORY: No family history of ESRD. PHYSICAL EXAMINATION: VITAL SIGNS: Blood pressure is noted at 192/87, heart rate 75, respiratory rate 14, temperature 97.9, O2 saturation 97% room air. GENERAL: The patient is awake, supine, comfortable, not in distress. SKIN: Adequate turgor. HEENT: She has pinkish conjunctivae, anicteric sclerae. NECK: No neck mass. No carotid bruits. No JVD. Positive for right eye blindness. LUNGS: Clear breath sounds. No wheezing. No crackles. HEART: Normal sinus rhythm. No murmur. No gallops. No rubs. ABDOMEN: Globular. Soft, nontender. No masses. EXTREMITIES: No edema, no deformities. LABORATORY DATA: From December 08, 2020; white count 5.7, hemoglobin 9.1. Sodium 141, potassium 4.6, chloride 95, carbon dioxide 29, BUN 73, creatinine 6.99, glucose is 243. ASSESSMENT AND PLAN: 1. Hyperkalemia, resolved with Kayexalate. The patient is currently undergoing hemodialysis today. 2. End-stage renal disease, stable. As previously mentioned, the patient is undergoing hemodialysis. Fluid removal as tolerated. Review of the last Kt/V suggests she is adequately dialyzed with the current dialysis regimen. 3. Anemia. Restart Epogen 7500 units subcu every week. 4. Obstipation, resolved. Job ID: [id number]
[2020-12-08] MEDS: Bisacodyl 10 MG SUPP PR SCH (10:00)
[2020-12-08] MEDS: Insulin Glargine 14 UNITS in Pre-Filled Syringe 1 EACH SC SCH (13:50)
--- NOTE | 2020-12-08 14:53 | CON ---
DATE OF CONSULTATION: 12/08/2020 REQUESTING PHYSICIAN: Edgardo Doty MD. HISTORY: Ms. Thao is a 45-year-old woman with history of chronic end-stage renal disease dialysis dependent. The patient presented with 3-day history of abdominal pain, which is exacerbated by eating. The patient's pain is mostly right upper quadrant, associated with some nausea, but no emesis. She denies any bowel movement over the same duration. She admits to abdominal bloating. She denies any fevers or chills. PAST MEDICAL HISTORY: Significant for end-stage renal disease, essential hypertension, type 2 diabetes mellitus, right eye blindness, diabetic gastroparesis and retinopathy. PAST SURGICAL HISTORY: Pertinent for AV fistula to the left upper extremity, bilateral tubal ligation, right eye enucleation. SOCIAL HISTORY: The patient is currently a resident of an extended care facility. She denies any cigarette smoking, ethanol or illicit drug abuse. PREHOSPITALIZATION MEDICATIONS: Includes, 1. Acetaminophen 650 mg p.o. q.4 hours p.r.n. 2. Humalog insulin. 3. Amlodipine 10 mg p.o. daily. 4. Ferric citrate 210 mg p.o. daily. 5. Gabapentin 300 mg p.o. b.i.d. 6. Levetiracetam 500 mg p.o. b.i.d. 7. Metoprolol 50 mg p.o. daily. 8. Pantoprazole 40 mg p.o. daily. 9. Sertraline 50 mg p.o. daily. 10. Renvela 2.4 g p.o. t.i.d. 11. Multiple ophthalmic drops. ALLERGIES: THE PATIENT DENIES ANY KNOWN DRUG ALLERGIES. REVIEW OF SYSTEMS: Ten-point review of systems essentially unremarkable except as stated in past medical history and chief complaint. PHYSICAL EXAMINATION: GENERAL: This reveals a 45-year-old normally developed woman, who is otherwise coherent, interactive, appears stated age. The patient is alert and oriented and appears to be in no acute distress at time of my evaluation. VITAL SIGNS: Post dialysis include blood pressure 115/59, pulse 64, respiratory rate 16, temperature 98.2 degrees Fahrenheit, oxygen saturation is 97% on room air. HEENT: She has no scleral icterus present. HEART: Reveals regular rate and rhythm. LUNGS: Clear to auscultation bilaterally. Her breathing, regular, nonlabored. ABDOMEN: Soft, moderately distended. She has right upper quadrant tenderness to palpation. Liver and spleen nonpalpable below costal margin. She clearly has no peritoneal signs on examination. NEUROLOGIC: Reveals no focal deficits present. LABORATORY FINDINGS: Today includes a CBC with 5700 white blood cells, hemoglobin and hematocrit are 9.1 and 26.9 respectively. The platelet count is 112,000. Metabolic profile; sodium 141, potassium 4.6, chloride is 95, bicarb is 29, BUN is 76, creatinine is 6.99, and this is predialysis. Glucose is 243. AST and ALT 40 and 31 respectively. Total bilirubin is normal at 0.5. I have personally reviewed the CT scan of the abdomen and pelvis obtained on 12/07/2020, which is unremarkable for any acute intraabdominal pathology. Abdominal ultrasound reveals distended gallbladder with biliary sludge and small pericholecystic fluid, minimal gallbladder wall thickening. The common bile duct is upper limits of normal for this patient's age at 6 mm in diameter. IMPRESSIONS: Right upper quadrant abdominal pain, likely secondary to acute acalculous cholecystitis vs Acute Hepatitis RECOMMENDATIONS: 1. Obtain HIDA scan to rule out cystic ductal obstruction, which could be conclusive of acute cholecystitis versus biliary dysfunction based on ejection fraction abnormalities if present. 2. There is no acute surgical indication for this patient at this time. However, general surgeon will make further recommendation based on the findings of the HIDA scan. Thank you again, Dr. Doty for allowing me the opportunity to participate in the care of this patient. Job ID: [id number]
--- NOTE | 2020-12-08 15:01 | PDOC.HOSPP ---
- Subjective Encounter Date: 12/08/20 Encounter Time: 14:50 Subjective: f/u for abd pain/constipation/ESRD and ? acalculous cholecystitis. Receiving supportive mgmt and HD per Renal service. - Objective Vital Signs & Weight: Vital Signs (12 hours) Temp Pulse Resp BP BP Pulse Ox 12/08/20 11:17 98.2 F 64 16 115/59 L 97 12/08/20 08:00 75 12/08/20 07:59 75 12/08/20 07:34 97.9 F 75 14 192/87 H 97 12/08/20 04:13 73 177/83 H 12/08/20 04:00 98.6 F 73 14 177/83 H 97 Weight Weight 128 lb 9.6 oz I&O: 12/07/20 12/08/20 12/09/20 06:59 06:59 06:59 Intake Total 740 Balance 740 Result Diagrams: 12/08/20 04:30 12/08/20 04:30 Additional Labs: Accuchecks 12/08/20 12/08/20 12/07/20 11:11 05:31 20:08 POC Glucose 99 242 H 228 H 12/07/20 18:10 POC Glucose 247 H Laboratory Tests 12/07/20 12/07/20 12/07/20 18:04 18:04 22:52 Hgb 10.4 L Hct 31.4 L Potassium 6.0 H Carbon Dioxide 32 H BUN 68 H Creatinine 6.31 H AST 88 H Alkaline Phosphatase 477 H SARS-CoV-2 (PCR) Not Detected 12/08/20 04:30 Hgb Hct Potassium Carbon Dioxide BUN Creatinine AST 40 H Alkaline Phosphatase 353 H SARS-CoV-2 (PCR) Radiology Reviewed by me: Yes (CT abd/pel - fecal impaction with colonic wall inflammation) EKG Reviewed by me: Yes (Tele - SR) Hospitalist ROS - Medication Medications: Active Medications Generic Name Dose Route Start Last Admin Trade Name Freq PRN Reason Stop Dose Admin Amlodipine Besylate 10 mg 12/08/20 09:00 12/08/20 08:00 Amlodipine 10 Mg Tab PO 10 mg DAILY MEGAN Administration Atropine Sulfate 1 drop 12/08/20 09:00 12/08/20 08:21 Atropine Sulfate 1% Ophth Soln 5 Ml Bottle L EYE 1 drop BID MEGAN Administration Bisacodyl 10 mg 12/08/20 09:00 12/08/20 10:00 Bisacodyl 10 Mg Supp WA 12/10/20 09:01 Not Given DAILY MEGAN Brimonidine Tartrate 1 drop 12/08/20 09:00 12/08/20 08:21 Brimonidine Tartrate 0.2% Ophth Soln 5 Ml Bottle EA EYE 1 drop TID MEGAN Administration Calcium Acetate 667 mg 12/08/20 08:00 12/08/20 13:50 Calcium Acetate 667 Mg Cap PO Not Given TID-[facility] Docusate Sodium 100 mg 12/08/20 09:00 12/08/20 08:00 Docusate 100 Mg Cap PO 100 mg BID MEGAN Administration Dorzolamide HCl 1 drop 12/08/20 09:00 12/08/20 08:20 Dorzolamide Hcl 2% Ophth Soln 10 Ml Bottle EA EYE 1 drop TID MEGAN Administration Gabapentin 300 mg 12/08/20 09:00 12/08/20 08:00 Gabapentin 300 Mg Cap PO 300 mg BID MEGAN Administration Heparin Sodium (Porcine) 5,000 units 12/08/20 09:00 12/08/20 08:25 Heparin 5,000 Units/Ml Vial SC Not Given BID [facility] Hydralazine HCl 75 mg 12/08/20 09:00 12/08/20 07:59 Hydralazine 25 Mg Tab PO 75 mg TID MEGAN Administration Insulin Glargine 14 units/ 0.14 mls @ 0 mls/hr 12/08/20 09:00 12/08/20 13:50 Miscellaneous Medication SC Not Given QAM [facility] Insulin Human Lispro 0 units 12/08/20 06:09 12/08/20 06:28 Humalog 300 Units/3 Ml Vial SC 3 unit .MILD SLIDING SCALE PRN Administration Mild Correctional Scale Levetiracetam 500 mg 12/08/20 09:00 12/08/20 08:00 Levetiracetam 500 Mg Tab PO 500 mg BID MEGAN Administration Metoprolol Succinate 50 mg 12/08/20 09:00 12/08/20 07:59 Metoprolol Succinate Xl 50 Mg Tab PO 50 mg DAILY MEGAN Administration Pantoprazole Sodium 40 mg 12/08/20 09:00 12/08/20 08:01 Pantoprazole 40 Mg Tab PO 40 mg DAILY MEGAN Administration Polyethylene Glycol 17 gm 12/08/20 09:00 12/08/20 10:02 Polyethylene Glycol 3350 17 Gm Packet PO Not Given BID MEGAN Sertraline HCl 50 mg 12/08/20 09:00 12/08/20 07:59 Sertraline Hcl 25 Mg Tab PO 50 mg DAILY MEGAN Administration Sevelamer Carbonate 2,400 mg 12/08/20 08:00 12/08/20 13:50 Sevelamer Carbonate 800 Mg Tab PO Not Given TID-WM MEGAN Timolol Maleate 1 drop 12/08/20 09:00 12/08/20 08:21 Timolol 0.5% Ophth Soln 5 Ml Bottle L EYE 1 drop TID MEGAN Administration - Exam General Appearance: awake alert ENT: normocephalic atraumatic, no oropharyngeal lesions Neck: supple, symmetric, no JVD, no thyromegaly, no lymphadenopathy Heart: RRR, no gallops, no rubs, normal peripheral pulses Heart - other findings: S1, S2 Respiratory: CTAB, no wheezes, no rales, no ronchi, normal chest expansion, no tachypnea Gastrointestinal: soft, non-tender, non-distended, normal bowel sounds Extremities: no cyanosis, no edema Extremities - other findings: LUE AV fistula Skin: normal turgor Neurological: no new deficit Musculoskeletal: generalized weakness, diffuse muscle atrophy Psychiatric: normal affect, A&O x 3 Hosp A/P (1) Abdominal pain Code(s): R10.9 - UNSPECIFIED ABDOMINAL PAIN Status: Acute Qualifiers: Abdominal location: generalized Qualified Code(s): R10.84 - Generalized abdominal pain Plan: Secondary to #2, resolving, supportive (2) Constipation Code(s): K59.00 - CONSTIPATION, UNSPECIFIED Status: Acute Qualifiers: Constipation type: slow transit constipation Qualified Code(s): K59.01 - Slow transit constipation Plan: Resolving, continue bowel regimen, serial abd exams (3) ESRD (end stage renal disease) on dialysis Code(s): N18.6 - END STAGE RENAL DISEASE; Z99.2 - DEPENDENCE ON RENAL DIALYSIS Status: Chronic Plan: s/p HD per Renal service, no current volume overload (4) Hyperkalemia Code(s): E87.5 - HYPERKALEMIA Status: Acute Plan: Resolved with HD, serial monitoring (5) Anemia of renal disease Code(s): D63.1 - ANEMIA IN CHRONIC KIDNEY DISEASE Status: Chronic Plan: Stable overall, Epo, serial H/H (6) Diabetes mellitus with diabetic polyneuropathy Code(s): E11.42 - TYPE 2 DIABETES MELLITUS WITH DIABETIC POLYNEUROPATHY Status: Chronic Plan: Advanced complications including ESRD, ISS, Lantus
--- NOTE | 2020-12-08 15:16 | NM ---
Radionucleotide hepatobiliary scan and gallbladder ejection fraction HISTORY: Right upper quadrant pain FINDINGS: Early images show physiologic uptake of radiotracer throughout the hepatic parenchyma. Gall bladder first seen at 12 minutes. Uptake is apparent within the small bowel at 42 minutes. After administration of CCK analog, there is progressive excretion of radiotracer from the gallbladde r to the small bowel. Ejection fraction calculated at 89%. IMPRESSION : Normal exam. Normal gallbladder ejection fraction. Findings were discussed with Dr. Powell at 1510 hours. Code CR.
[2020-12-08 17:17] LABS: HBCM Index 0.09 S/CO (0-0.79); HBSAg Index 0.17 S/CO (0-0.99); Hep A IgM AB Non-Reactive (NonReactive); Hep A IgM S/CO 0.13 S/CO (0-0.79); Hep B Surf Ag Non-Reactive S/CO (NonReactive); Hep C IgG Ab Non-Reactive (NonReactive); Hep C Index 0.17 S/CO (0-0.79); Hepatitis B Core IgM Abs Non-Reactive (NonReactive)
[2020-12-08] MEDS ORDERED: Melatonin 3 MG TAB PO SCH (21:00)
[2020-12-09 04:49] LABS: #Eosinphils 0.9 thou/uL (0.0-0.7); #Lymphocytes 1.6 thou/uL (1.20-3.40); #Monocytes 0.2 thou/uL (0.11-0.59); #Neutrophils 2.6 thou/uL (1.40-6.50); %Basophils 0.6 % (0.0-1.0); %Eosinophils 16.1 % (0.0-10.0); %Lymphocytes 30.1 % (21.0-51.0); %Monocytes 4.2 % (0.0-10.0); Hemoglobin 9.4 g/dL (12.0-16.0); Mean Corpuscular HGB CONC 32.9 g/dL (32.0-36.0); Mean Corpuscular Hemoglobin 29.7 pg (27.0-31.0); Mean Corpuscular Volume 90.3 fL (78.0-98.0); Mean Platelet Volume 8.6 fL (7.4-10.4); Platelet Count 108 thou/uL (130-400); RBC Distribution Width 14.3 % (11.5-14.5); Red Blood Cell (RBC) Count 3.16 mill/uL (4.20-5.40); White Blood Cell (WBC) Count 5.4 thou/uL (4.8-10.8)
[2020-12-09 05:04] LABS: Anion Gap 14 mmol/L (10-20); BUN (Urea Nitrogen) 24 mg/dL (7.0-18.7); Calc. Creatinine Clearance 14 mL/min (70-130); Calcium 8.7 mg/dL (7.8-10.44); Carbon Dioxide 32 mmol/L (22-29); Chloride 95 mmol/L (98-107); Glucose 322 mg/dL (70-105); Magnesium 1.9 mg/dL (1.6-2.6); Potassium 4.8 mmol/L (3.5-5.1); Sodium 136 mmol/L (136-145)
[2020-12-09] MEDS: HumaLOG 300 UNITS/3 ML VIAL SC PRN ×3 (06:11→12:10)
[2020-12-09] MEDS: Dorzolamide HCl 2% Ophth Soln 10 ml Bottle EA EYE SCH ×2 (08:52→15:45)
[2020-12-09] MEDS: Timolol 0.5% Ophth Soln 5 ml Bottle L EYE SCH ×2 (08:52→15:45)
[2020-12-09] MEDS: Brimonidine Tartrate 0.2% Ophth Soln 5 ml Bottle EA EYE SCH ×2 (08:52→15:45)
[2020-12-09] MEDS: Atropine Sulfate 1% Ophth Soln 5 ml Bottle L EYE SCH (08:52)
[2020-12-09] MEDS: Gabapentin 300 MG CAP PO SCH (08:53)
[2020-12-09] MEDS: Sevelamer Carbonate 800 MG TAB PO SCH ×2 (08:53→11:58)
[2020-12-09] MEDS: Calcium Acetate 667 MG CAP PO SCH ×2 (08:53→11:58)
[2020-12-09] MEDS: Amlodipine 10 MG TAB PO SCH (08:54)
[2020-12-09] MEDS: levETIRAcetam 500 MG TAB PO SCH (08:54)
[2020-12-09] MEDS: hydrALAZINE 25 MG TAB PO SCH ×2 (08:54→15:44)
[2020-12-09] MEDS: Docusate 100 MG CAP PO SCH (08:54)
[2020-12-09] MEDS: Polyethylene Glycol 3350 17 GM Packet PO SCH (08:55)
[2020-12-09] MEDS: Insulin Glargine 14 UNITS in Pre-Filled Syringe 1 EACH SC SCH (08:59)
--- NOTE | 2020-12-09 09:09 | PRG ---
DATE OF SERVICE: 12/09/2020 SUBJECTIVE: Ms. Thao is a 45-year-old female with ESRD and on maintenance hemodialysis. She was initially admitted for hyperkalemia. Potassium is much improved with dialysis. No new complaints today. No chest pain or shortness of breath. OBJECTIVE: VITAL SIGNS: Blood pressure is 155/69, heart rate 69, respiratory rate 14, temperature 98.8, O2 saturation 94% on room air. GENERAL: The patient is awake, alert, comfortable, not in distress. HEENT: Pinkish conjunctivae. Anicteric sclerae. No neck mass. No carotid bruits. No JVD. Positive for right eye blindness. LUNGS: Clear breath sounds. No wheezing. No crackles. HEART: Normal sinus rhythm. No murmurs. No gallops. No rubs. ABDOMEN: Globular, soft, and nontender. No masses. EXTREMITIES: No edema. No deformities. MEDICATIONS: December 09, 2020, reviewed. LABORATORY DATA: December 09, 2020: White count 5.4, hemoglobin 9.4. Sodium 136, potassium 4.8, chloride 95, carbon dioxide 32, BUN 24, creatinine 3.92, glucose 322, calcium 8.7, and magnesium 1.9. ASSESSMENT AND PLAN: 1. End-stage renal disease - stable, tolerated hemodialysis yesterday, but requested to shorten treatment. Fluid removal was also done. 2. Anemia, continuing weekly Epogen. 3. Hyperkalemia, resolved with dialysis. Job ID: [id number]
[2020-12-09] MEDS: Heparin 5,000 UNITS/ML VIAL SC SCH (10:09)
[2020-12-09] MEDS: Bisacodyl 10 MG SUPP PR SCH (10:09)
--- NOTE | 2020-12-09 13:18 | DIS ---
DATE OF ADMISSION: 12/07/2020 DATE OF DISCHARGE: 12/09/2020 DISCHARGE DIAGNOSES: 1. Abdominal pain secondarily to fecal impaction/constipation, resolving. 2. End-stage renal disease with hemodialysis. 3. Diabetes mellitus type 1 with peripheral neuropathy and diabetic nephropathy/retinopathy. 4. Hyperkalemia, resolved. 5. Anemia of chronic kidney disease, stable. 6. Hypertension. CONSULTATIONS: 1. Dr. Hannon with Nephrology Service. 2. Dr. Powell with General Surgery Service. PERTINENT LABORATORY AND X-RAY FINDINGS: Potassium ranged between 4.6 to 6.0. Creatinine ranged between 3.92 to 6.99. Magnesium level 2.4. Lipase 8. CBC showed a hemoglobin ranging between 9.1 to 10.4. Hepatitis A, B, and C panel nonreactive on 12/08/2020. COVID-19 PCR not detected on 12/07/2020. CT of the abdomen and pelvis dated 12/07/2020, showed fecal impaction. Mild prominence of the small bowel within the left abdomen. Distended gallbladder with gallbladder wall thickening. Portable chest x-ray dated 12/07/2020, showed nonspecific right perihilar interstitial prominence. Abdominal ultrasound dated 12/07/2020, showed mild pericholecystic fluid. Hepatobiliary scan dated 12/08/2020, showed normal study with gallbladder ejection fraction of 89%. 2D transthoracic echocardiogram dated 12/09/2020, showed ejection fraction of 60% to 65%. Grade 2/3 diastolic dysfunction. Mild to moderate tricuspid regurgitation. HOSPITAL COURSE: The patient was admitted after initially presenting with increasing abdominal pain x3 days without associated bowel movement. The patient underwent extensive evaluation including CT imaging of the abdomen and pelvis showing fecal impaction. The patient was also evaluated for potential gallbladder source with abdominal ultrasound equivocal. HIDA scan was performed showing a normal gallbladder with gallbladder ejection fraction of 89%. The patient received a bowel regimen including Dulcolax suppositories in addition to MiraLAX with successful evacuation of stool. The patient's overall abdominal pain resolved prior to discharge. The patient continued receiving maintenance hemodialysis during her hospital course, tolerating without difficulty. Overall, the patient did remain clinically stable during the hospital course, tolerating regular oral intake with stable vital signs. I have examined the patient at the time of discharge and discussed followup instructions. The patient verbalized understanding and agreement, ready for discharge on 12/09/2020. DISCHARGE MEDICATIONS: 1. Atropine sulfate 1% one drop to the left eye b.i.d. 2. Ferric citrate 1 g p.o. with meals. 3. Brimonidine tartrate one drop to the left eye t.i.d. 4. Calcium acetate 667 mg p.o. t.i.d. 5. Dorzolamide 2% one drop to the left eye t.i.d. 6. Hydroxyzine 50 mg p.o. q.6 hours p.r.n. 7. Keppra 500 mg p.o. b.i.d. 8. Lantus 14 units subcutaneously daily. 9. Melatonin 10 mg p.o. at bedtime. 10. Metoprolol succinate 50 mg p.o. daily. 11. Gabapentin 300 mg p.o. b.i.d. 12. Renvela one packet p.o. t.i.d. 13. Timolol maleate 0.5% one drop to the left eye t.i.d. 14. Zoloft 50 mg p.o. daily. 15. Hydralazine 75 mg p.o. t.i.d. 16. Dulcolax 10 mg per rectum daily p.r.n. 17. MiraLAX 17 g p.o. b.i.d. 18. Amlodipine 10 mg p.o. daily. 19. Protonix 40 mg p.o. daily. FOLLOWUP: The patient may follow up with her primary doctor, Dr. Francesco Gordon at [facility]. CONDITION ON DISCHARGE: Fair. ACTIVITY: Ad-betty. DIET: ADA and renal. CODE STATUS: Full. DISPOSITION: Discharged to [facility] on 12/09/2020. Total time preparing and coordinating discharge is 35 minutes. Job ID: [id number]
[2020-12-09 16:15] VITALS: BP 136/64; TEMP 98.7
--- NOTE | 2020-12-11 11:15 | EKG ---
Test Reason : Blood Pressure : / mmHG Vent. Rate : 067 BPM Atrial Rate : 067 BPM P-R Int : 144 ms QRS Dur : 086 ms QT Int : 422 ms P-R-T Axes : 047 060 057 degrees QTc Int : 445 ms Normal sinus rhythm Normal ECG Confirmed by TAMI JOE ([id number]), news video editor JUAN MANUEL DOUGLASS ([id number]) on 12/11/2020 11:15:22 AM Referred By: Confirmed By:TAMI JOE
== END 2020-12-09 17:17 | DRG 388 ==
LOC: ERS 17:23 → OBSVTOIN 20:49 → 2NO 20:49
PROVIDERS: ADMIT Internal Medicine; ATTEND Family Medicine
PROC: 5A1D70Z Performance of Urinary Filtration, Intermittent, Less than 6 Hours Per Day (ICD-10-PCS; principal; 2020-12-08)
DX: K56.41 Fecal impaction (principal); N18.6 End stage renal disease; I12.0 Hypertensive chronic kidney disease with stage 5 chronic kidney disease or end stage renal disease; N25.81 Secondary hyperparathyroidism of renal origin; E10.42 Type 1 diabetes mellitus with diabetic polyneuropathy; E10.22 Type 1 diabetes mellitus with diabetic chronic kidney disease; E10.319 Type 1 diabetes mellitus with unspecified diabetic retinopathy without macular edema; D63.1 Anemia in chronic kidney disease; E87.5 Hyperkalemia; Z20.822 Contact with and (suspected) exposure to COVID-19; I25.10 Atherosclerotic heart disease of native coronary artery without angina pectoris; E10.43 Type 1 diabetes mellitus with diabetic autonomic (poly)neuropathy; K31.84 Gastroparesis; K21.9 Gastro-esophageal reflux disease without esophagitis; G47.00 Insomnia, unspecified; E78.5 Hyperlipidemia, unspecified; F41.9 Anxiety disorder, unspecified; F32.9 Major depressive disorder, single episode, unspecified; R01.1 Cardiac murmur, unspecified; K82.8 Other specified diseases of gallbladder; H54.40 Blindness, one eye, unspecified eye; I16.0 Hypertensive urgency; Z86.16 Personal history of COVID-19; Z99.2 Dependence on renal dialysis; Z79.4 Long term (current) use of insulin; Z98.51 Tubal ligation status; Z79.899 Other long term (current) drug therapy
CPT/HCPCS: 36415; 36416; 71045; 74177; 76705; 78227; 80048; 80053; 80074; 83690; 83735; 85025; 87635; 90935; 93005; 93306; 96374; 96375; 96376; A9537; G0257; G0378; J0360; J1815; J2270; J2405; J2543; Q5105; Q9967; U0003; U0005

== ENCOUNTER 2021-01-14 01:55 | Inpatient (IN) | payer OTHER ==
[2021-01-14] MEDS ORDERED: Ondansetron PF 4 MG/2 ML Vial ONE ×2 (02:01→08:04)
[2021-01-14 02:28] LABS: Hemoglobin 11.1 g/dL (12.0-16.0); Mean Corpuscular HGB CONC 36.5 g/dL (32.0-36.0); Mean Corpuscular Hemoglobin 32.7 pg (27.0-31.0); Mean Corpuscular Volume 89.4 fL (78.0-98.0); Mean Platelet Volume 8.2 fL (7.4-10.4); Platelet Count 137 thou/uL (130-400); Red Blood Cell (RBC) Count 3.41 mill/uL (4.20-5.40); White Blood Cell (WBC) Count 7.1 thou/uL (4.8-10.8)
[2021-01-14 02:45] LABS: ALT (SGPT) 11 U/L (8-55); AST (SGOT) 16 U/L (5-34); Albumin 4.3 g/dL (3.5-5.0); Alkaline Phosphatase 432 U/L (40-110); Anion Gap 27 mmol/L (10-20); BUN (Urea Nitrogen) 77 mg/dL (7.0-18.7); Band 6 % (5-11); Bilirubin, Total 0.6 mg/dL (0.2-1.2); Calc. Creatinine Clearance 0 mL/min (70-130); Calcium 9.4 mg/dL (7.8-10.44); Carbon Dioxide 23 mmol/L (22-29); Chloride 89 mmol/L (98-107); Globulin 3.6 g/dL (2.4-3.5); Glucose 397 mg/dL (70-105); Hypochromia SLIGHT = 6-15 cells (100X) (0-5/hpf); Lipase Less than 4 U/L (8-78); Lymphocytes 1 % (21-51); MDiff Complete? YES; Monocytes 1 % (0-10); Neutrophil 92 % (42-75); Platelet Morphology Comment Appears Adequate; Potassium 5.5 mmol/L (3.5-5.1); Protein, Total 7.9 g/dL (6.0-8.3); Sodium 133 mmol/L (136-145)
[2021-01-14] MEDS ORDERED: hydrALAZINE 20 MG/ML VIAL ONE ×2 (03:29→09:02)
[2021-01-14] MEDS ORDERED: Insulin Regular 300 UNITS/3 ML VIAL ONE (03:29)
[2021-01-14] MEDS ORDERED: Lorazepam 2 MG/ML VIAL ONE ×2 (03:42→10:27)
[2021-01-14 04:33] LABS: Base Excess-Venous -0.7 mmol/L (-2.0 to 3.0); Bicarbonate (HCO3v) 23.8 mmol/L (22.0-28.0); CO2 Tension (PvCO2) 37.8 mmHg (40.0-50.0); Calcium, Ionized 0.92 mmol/L (1.15-1.33); Chloride 97 mmol/L (98-107); Hemoglobin - Calc 10.6 g/dL (12.0-16.0); Sodium 130 mmol/L (138-145); vO2 Saturation-calc 95.3 % (60.0-85.0)
--- NOTE | 2021-01-14 05:26 | PDOC.HHP ---
Hospitalist LUCILA AMS History of Present Illness: This is a 45-year-old female patient with a history of ESRD on dialysis, diabetes mellitus type 1, hypertension, GERD and C. difficile colitis who presents today with nausea and vomiting from her nursing facility. She is well- known in this facility. She was last discharged on 12/09/2020 after being managed for abdominal pain secondary to fecal impaction/constipation Of note patient diabetes is very brittle and she swings wildly from hypo to hypoglycemia. Of note she has missed her last dialysis and has not had dialysis for the past 5 days. Director Of Field Sales is Dr. Hannon. At the time of my evaluation besides nausea vomiting patient was also complaining of emesis and diarrhea about 5 stools a day. She denied abdominal pain however abdomen was tender on examination. She denied any associated fevers, headache cough chest pain palpitations or shortness of breath. As presentation her blood pressure was elevated at 01/16/2003, pulse 79, respirate 20, temperature 98.0 saturating at 99% on room air. Labs showed anemia of 11.1, hyponatremia of 133, potassium 5.5, anion gap 27 and creatinine 7.62. BUN of 77. Blood glucose high presentation was 294. Alkaline phosphatase elevated at 432. Venous blood gas showed a pH of 7.4 with PCO2 37.8. Beta hydroxybutyrate acid was slightly elevated at 0.46. She was given insulin 6 units and also received lorazepam and 1 L normal saline. Also had 10 mg hydralazine for hypertension for milligrams ondansetron for nausea. Her heater planer operator Dr. Hannon was notified and said he would do dialysis in the morning. Hospitalist team was consulted for admission. Allergies/Adverse Reactions: Allergy/AdvReac Type Severity Reaction Status Date / Time No Known Allergies Allergy Verified 11/23/20 17:39 Home Medications: Medication Instructions Recorded Confirmed Type Amlodipine [Norvasc] 10 mg PO DAILY #30 tab 05/25/17 12/07/20 Rx Atropine Sulfate [Atropine 1% 1 drop L EYE BID 03/11/19 12/07/20 History Ophth Soln] Melatonin 10 mg PO HS 03/11/19 12/07/20 History Metoprolol Succinate 50 mg PO DAILY 03/11/19 12/07/20 History Gabapentin [Neurontin] 300 mg PO BID 03/28/19 12/07/20 History Acetaminophen [Tylenol Regular 650 mg PO Q4H PRN tab 08/30/19 12/07/20 Rx Strength] HumaLOG [HumaLOG Vial] 0 unit SC AC PRN 11/10/19 12/07/20 History Calcium Acetate 667 mg PO TID-WM 06/24/20 12/07/20 History levETIRAcetam [Keppra] 500 mg PO BID 06/24/20 12/07/20 History Sertraline HCl [Zoloft] 50 mg PO DAILY 09/14/20 12/07/20 History Ferric Citrate [Auryxia] 1 g PO AC 10/23/20 12/07/20 History Sevelamer Carbonate [Renvela] 1 packet PO TID- 10/23/20 12/07/20 History Brimonidine Tartrate [Brimonidine 1 drop L EYE TID 10/24/20 12/07/20 History Tartrate 0.15% Ophth Soln] Dorzolamide HCl/Pf [Dorzolamide 2% 1 drop L EYE TID 10/24/20 12/07/20 History Eye Drop] Ondansetron HCl [Zofran] 4 mg PO Q8H PRN 10/24/20 12/07/20 History hydrOXYzine HCl [Hydroxyzine HCl] 50 mg PO Q6H PRN 10/24/20 12/07/20 History Pantoprazole [Protonix] 40 mg PO DAILY #30 tab 11/26/20 12/07/20 Rx Glucagon,Human Recombinant 1 mg IM PRN PRN 12/07/20 12/07/20 History [Glucagon Emergency Kit] Insulin Glargine [Lantus] 14 unit SQ DAILY 12/07/20 12/07/20 History Timolol Maleate [Timoptic 0.5% 1 drop L EYE TID 12/07/20 12/07/20 History Ophth Soln] Bisacodyl [Dulcolax] 10 mg [place] DAILY supp 12/09/20 Rx Polyethylene Glycol 3350 [Miralax] 17 gm PO BID pk 12/09/20 Rx hydrALAZINE [Apresoline] 75 mg PO TID tab 12/09/20 Rx Past History: PMHx: ESRD on dialysis, diabetes mellitus, hypertension, blindness, C. difficile colitis, PSHx: Tubal ligation, surgery for traumatic pneumothorax with chest tube. FHx: None of significant Social: Lives in nursing facility. Denies alcohol, smoking or illicit drug use Hospitalist HPI ROS Constitutional: reports: weakness, malaise. denies: fever, chills, sweats Respiratory: denies: cough, shortness of breath, hemoptysis, SOB with excertion Cardiovascular: denies: chest pain, palpitations, orthopnea, paroxysmal noc. dyspnea Gastrointestinal: reports: nausea, vomiting, abdominal pain, diarrhea. denies: constipation, melena Neurological: denies: weakness, numbness, incoordination, change in speech All other systems reviewed; all pertinent +/- noted in HPI/Subj Hospitalist Exam General Appearance: awake alert General - other findings: In no acute distress Eye: PERRL, anicteric sclera ENT: normocephalic atraumatic Heart: RRR, no murmur, no gallops, no rubs Respiratory: CTAB, no wheezes, no rales, no ronchi Gastrointestinal: soft, non-distended, normal bowel sounds, no guarding, tender to palpation (Generalized) Extremities: no cyanosis, no clubbing, 1+ LE edema Neurological - other findings: Patient is blind in both eyes Musculoskeletal: generalized weakness Musculoskeletal - other findings: She is unable to walk Psychiatric: A&O x 3, flat affect Hospitalist Results Result Diagrams: 01/14/21 02:10 01/14/21 02:10 Lab results: Laboratory Last Values WBC 7.1 thou/uL (4.8-10.8) 01/14/21 02:10 RBC 3.41 mill/uL (4.20-5.40) L 01/14/21 02:10 Hgb 11.1 g/dL (12.0-16.0) L 01/14/21 02:10 Hct 30.4 % (36.0-47.0) L 01/14/21 02:10 POC Venous Hct 31.0 % (36.0-47.0) L 01/14/21 03:39 MCV 89.4 fL (78.0-98.0) 01/14/21 02:10 MCH 32.7 pg (27.0-31.0) H 01/14/21 02:10 MCHC 36.5 g/dL (32.0-36.0) H 01/14/21 02:10 RDW 14.0 % (11.5-14.5) 01/14/21 02:10 Plt Count 137 thou/uL (130-400) 01/14/21 02:10 MPV 8.2 fL (7.4-10.4) 01/14/21 02:10 Neutrophils % (Manual) 92 % (42-75) H 01/14/21 02:10 Band Neuts % (Manual) 6 % (5-11) 01/14/21 02:10 Lymphocytes % (Manual) 1 % (21-51) L 01/14/21 02:10 Monocytes % (Manual) 1 % (0-10) 01/14/21 02:10 Lymphocytes # Not Reportable 01/14/21 02:10 Hypochromia SLIGHT = 6-15 cells (100X) (0-5/hpf) 01/14/21 02:10 Plt Morphology Comment Appears Adequate 01/14/21 02:10 POC Bicarbonate Calc 23.8 mmol/L (22.0-28.0) 01/14/21 03:39 POC VBG pH 7.408 (7.320-7.430) 01/14/21 03:39 VBG pCO2 37.8 mmHg (40.0-50.0) L 01/14/21 03:39 VBG pO2 76.5 mmHg (35.0-45.0) H 01/14/21 03:39 POC VBG CO2 (Calc) 25.0 mmol/L (22.0-28.0) 01/14/21 03:39 POC VBG O2 Sat (Calc) 95.3 % (60.0-85.0) H 01/14/21 03:39 POC VBG Base Excess -0.7 mmol/L (-2.0 to 3.0) 01/14/21 03:39 POC VBG Hemoglobin Calc 10.6 g/dL (12.0-16.0) L 01/14/21 03:39 POC Venous Sodium 130 mmol/L (138-145) L 01/14/21 03:39 Sodium 133 mmol/L (136-145) L 01/14/21 02:10 POC Venous Potassium 5.0 mmol/L (3.5-5.1) 01/14/21 03:39 Potassium 5.5 mmol/L (3.5-5.1) H 01/14/21 02:10 POC Venous Chloride 97 mmol/L (98-107) L 01/14/21 03:39 Chloride 89 mmol/L (98-107) L 01/14/21 02:10 Carbon Dioxide 23 mmol/L (22-29) 01/14/21 02:10 Anion Gap 27 mmol/L (10-20) H 01/14/21 02:10 POC Reynold Anion Gap Calc 14 mmol/L (10-20) 01/14/21 03:39 BUN 77 mg/dL (7.0-18.7) H 01/14/21 02:10 Creatinine 7.62 mg/dL (0.6-1.1) H 01/14/21 02:10 Estimated GFR (MDRD) 6 01/14/21 02:10 Glucose 397 mg/dL (70-105) H 01/14/21 02:10 Calcium 9.4 mg/dL (7.8-10.44) 01/14/21 02:10 POC Venous Ion Calcium 0.92 mmol/L (1.15-1.33) L 01/14/21 03:39 Total Bilirubin 0.6 mg/dL (0.2-1.2) 01/14/21 02:10 AST 16 U/L (5-34) 01/14/21 02:10 ALT 11 U/L (8-55) 01/14/21 02:10 Alkaline Phosphatase 432 U/L (40-110) H 01/14/21 02:10 Serum Total Protein 7.9 g/dL (6.0-8.3) 01/14/21 02:10 Albumin 4.3 g/dL (3.5-5.0) 01/14/21 02:10 Globulin 3.6 g/dL (2.4-3.5) H 01/14/21 02:10 Albumin/Globulin Ratio 1.2 g/dL (1.2-2.2) 01/14/21 02:10 Lipase Less than 4 U/L (8-78) L 01/14/21 02:10 B-Hydroxybutyrate 0.46 mmol/L (0.02-0.27) H 01/14/21 02:10 Hospitalist H&P A/P Plan: This is a 45-year-old female patient history of ESRD diabetes mellitus among multiple chronic complications who presents today on account of nausea and vomiting with diarrhea. She has missed dialysis and is volume overloaded but however there are also concerns for gastroenteritis. Gastroenteritis Patient has diarrhea nausea and vomiting and abdominal pain Unclear etiology Given frequent hospitalizations we will check stool studies with C. difficile Start on ceftriaxone and metronidazole for now CT scan abdomen without contrast ordered Follow-up on stool results and adjust antibiotics as needed. Nausea and vomiting Possible gastroenteritis/having missed dialysis with uremia Ondansetron as needed For dialysis today. ESRD on dialysis Nephrology was consulted. Diabetes mellitus Start correctional dosing Sugars are brittlehas to be closely monitored. Anemia Mild Secondary to ESRD Continue monitoring. Hypertension Systolic blood pressures 20s at presentation Currently improved to the 160s Resume home blood pressure medications Also to receive dialysisthis might improve BP CODE STATUS full VT prophylaxisHeparin
[2021-01-14] MEDS ORDERED: Ondansetron ODT 4 MG TAB PO PRN (06:04)
--- NOTE | 2021-01-14 07:58 | RAD ---
Exam: Chest one view HISTORY:Missed dialysis. Nausea and vomiting. Comparison: 12/16/2020 FINDINGS: Cardiac silhouette:Cardiomegaly Aorta: Unremarkable Pulmonary vessels: Slightly prominent Costophrenic angles: Clear LUNGS: Scattered interstitial reticular nodular opacities, right lung greater than left. Pneumothorax: None Osseous abnormalities: None IMPRESSION: 1. Volume overload
[2021-01-14] MEDS ORDERED: Dextrose 5% in Water 1,000 ML IV PRN (08:09)
[2021-01-14] MEDS: Ondansetron PF 4 MG/2 ML Vial IVP PRN (08:09)
[2021-01-14] MEDS ORDERED: Dextrose 50% Abboject 50 ML SYRINGE SLOW IVP PRN (08:09)
--- NOTE | 2021-01-14 08:37 | CT ---
CT ABDOMEN AND PELVIS WITHOUT CONTRAST: COMPARISON: 12/07/2020, 10/22/2020, and 08/27/2019. HISTORY: Nausea and vomiting with abdominal pain. TECHNIQUE: Multiple contiguous axial images were obtained in a CT of the abdomen and pelvis without contrast. S agittal and coronal reformats were performed. FINDINGS: The kidneys are small and atrophic. There are stable hypodensities in both kidneys. The hypodensity in the left kidney demonstrates slight increased Hounsfield unit value and is not definitely consist ent with a simple cyst. This remains stable compared to the prior CT. The liver, gallbladder, adren al glands, spleen, and pancreas are unremarkable. No free air, free fluid or stranding changes are seen in the abdomen or pelvis. Apparent thickening of the wall of the rectum may be secondary to its decompressed state. No abnormality was seen in thi s location on the prior examination. There are a few scattered diverticula in the colon. The small bowel is normal in caliber. The reproductive organs are unremarkable. Atherosclerotic calcifications are seen. No abdominal or pelvic lymphadenopathy are appreciated. There is a small right pleural effusion with adjacent atelectasis. The abdominal wall soft tissues a re unremarkable. The bones are unremarkable. IMPRESSION: 1. No evidence of acute intraabdominal/pelvic abnormality. 2. Stable renal hypodensities likely represent cysts. The lesion in the left kidney is not definite ly compatible with a simple cyst but may represent a hyperdense cyst. POS: EAA
[2021-01-14] MEDS ORDERED: niCARdipine 25 MG in Sodium Chloride 0.9% 250 ML 240 ML IVPB SCH (08:45)
[2021-01-14] MEDS ORDERED: HYDROmorphone 0.5 MG/0.5 ML SYRINGE ONE (10:28)
[2021-01-14] MEDS ORDERED: HYDROmorphone 0.5 MG/0.5 ML SYRINGE SLOW IVP SCH (10:45)
[2021-01-14] MEDS ORDERED: Lorazepam 2 MG/ML VIAL SLOW IVP SCH (10:45)
--- NOTE | 2021-01-14 11:12 | PRG ---
DATE OF SERVICE: 01/14/2021 SUBJECTIVE: Ms. Thao is a 45-year-old female, [facility] patient, admitted for missed dialysis. She was also complaining of nausea and vomiting. During the initial evaluation in the ER, her blood pressure was noted to be more than 200. Attempt to low, it was not successful. For that reason, the patient is admitted. We are following her up for management of her ESRD. She is currently undergoing hemodialysis. The patient denies any chest pain or shortness of breath, but she does complain of some abdominal discomfort. She has been given pain medication. PHYSICAL EXAMINATION: VITAL SIGNS: Blood pressure is noted at 200/100. Please note that the patient has a repeat BP, it is currently 179/92. GENERAL: The patient is awake, in mild abdominal pain, not in distress. SKIN: Adequate turgor. HEENT: Slightly pale conjunctivae. Anicteric sclerae. NECK: No neck mass. No carotid bruits. No JVD. CHEST: No deformities. LUNGS: Clear breath sounds. No wheezing. No crackles. HEART: Normal sinus rhythm. No murmur. No gallops or rubs. ABDOMEN: Globular, soft, nontender. No masses. EXTREMITIES: Trace edema. NEUROLOGIC: Decreased visual acuity. No tremors. No asterixis. Oriented to 3 spheres. MEDICATIONS: January 14, 2021, was reviewed. LABORATORY DATA: On January 14, 2021; white count 7.1 and hemoglobin 11.1. Sodium 130, potassium 5, chloride 97, carbon dioxide 23, BUN is 14, creatinine 7.62. IMAGING DATA: CT scan of the abdomen and pelvis, no acute intraabdominal abnormality. January 14, 2021, chest x-ray shows increased lung markings. ASSESSMENT AND PLAN: 1. Congestive heart failure. Trying to max out fluid removal as tolerated by this patient. 2. End-stage renal disease, stable. We will continue current Sunday, Sunday, and Sunday hemodialysis regimen. Again, fluid removal as tolerated by the patient. Please note, the patient missed dialysis for about a week. 3. Abdominal pain. Continue supportive care. CT scan of the abdomen and pelvis did not show any overt intraabdominal abnormality. Overall, prognosis remains guarded. Job ID: [id number]
[2021-01-14 11:28] LABS: SARS-CoV-2 PCR by NAA Not Detected (NotDetected)
[2021-01-14] MEDS: Heparin 5,000 UNITS/ML VIAL SC SCH ×3 (14:11→20:56)
[2021-01-14] MEDS ORDERED: cefTRIAXone\\ROCEPHIN 1 GM VIAL ONE (14:29)
[2021-01-14] MEDS: cefTRIAXone\\ROCEPHIN 1 GM in Sodium Chloride 0.9% 100 ML IVPB SCH (14:34)
[2021-01-14] MEDS ORDERED: metroNIDAZOLE 500 MG/100 ML BAG ONE (15:34)
[2021-01-14] MEDS: metroNIDAZOLE 500 MG in Premix Bag 1 BAG IVPB SCH ×2 (15:39→22:52)
[2021-01-14] MEDS ORDERED: Ferric Citrate [Auryxia] 210 MG PO PRN (18:23)
[2021-01-14] MEDS: Dorzolamide HCl 2% Ophth Soln 10 ml Bottle L EYE SCH (20:29)
[2021-01-14] MEDS: Atropine Sulfate 1% Ophth Soln 5 ml Bottle L EYE SCH (20:30)
[2021-01-14] MEDS: Brimonidine Tartrate 0.2% Ophth Soln 5 ml Bottle L EYE SCH (20:30)
[2021-01-14] MEDS: Gabapentin 300 MG CAP PO SCH (20:31)
[2021-01-14] MEDS: hydrALAZINE 25 MG TAB PO SCH (20:31)
[2021-01-14] MEDS: levETIRAcetam 500 MG TAB PO SCH (20:31)
[2021-01-14] MEDS ORDERED: HumaLOG 300 UNITS/3 ML VIAL SC PRN (21:22)
[2021-01-15] MEDS: Acetaminophen 325 MG TAB PO PRN (01:29)
[2021-01-15] MEDS: metroNIDAZOLE 500 MG in Premix Bag 1 BAG IVPB SCH ×3 (05:27→21:27)
[2021-01-15 05:54] LABS: #Eosinphils 0.4 thou/uL (0.0-0.7); #Lymphocytes 0.9 thou/uL (1.20-3.40); #Monocytes 0.3 thou/uL (0.11-0.59); #Neutrophils 3.1 thou/uL (1.40-6.50); %Basophils 0.9 % (0.0-1.0); %Eosinophils 9.1 % (0.0-10.0); %Lymphocytes 18.4 % (21.0-51.0); %Monocytes 5.7 % (0.0-10.0); Hemoglobin 8.8 g/dL (12.0-16.0); Mean Corpuscular HGB CONC 34.1 g/dL (32.0-36.0); Mean Corpuscular Hemoglobin 31.2 pg (27.0-31.0); Mean Corpuscular Volume 91.5 fL (78.0-98.0); Mean Platelet Volume 8.3 fL (7.4-10.4); Platelet Count 114 thou/uL (130-400); RBC Distribution Width 13.7 % (11.5-14.5); Red Blood Cell (RBC) Count 2.83 mill/uL (4.20-5.40); White Blood Cell (WBC) Count 4.6 thou/uL (4.8-10.8)
[2021-01-15 06:16] LABS: Anion Gap 19 mmol/L (10-20); BUN (Urea Nitrogen) 16 mg/dL (7.0-18.7); Calc. Creatinine Clearance 16 mL/min (70-130); Calcium 8.2 mg/dL (7.8-10.44); Carbon Dioxide 25 mmol/L (22-29); Chloride 99 mmol/L (98-107); Glucose 266 mg/dL (70-105); Sodium 139 mmol/L (136-145)
[2021-01-15] MEDS: cefTRIAXone\\ROCEPHIN 1 GM in Sodium Chloride 0.9% 100 ML IVPB SCH (06:37)
[2021-01-15] MEDS: HumaLOG 300 UNITS/3 ML VIAL SC PRN (06:37)
[2021-01-15] MEDS: Bisacodyl 10 MG SUPP PR SCH (08:56)
[2021-01-15] MEDS: Sevelamer Carbonate 800 MG TAB PO SCH ×3 (08:58→22:34)
[2021-01-15] MEDS: Brimonidine Tartrate 0.2% Ophth Soln 5 ml Bottle L EYE SCH ×3 (08:59→21:26)
[2021-01-15] MEDS: Atropine Sulfate 1% Ophth Soln 5 ml Bottle L EYE SCH ×2 (08:59→21:27)
[2021-01-15] MEDS ORDERED: Non-Formulary Item 1 EACH (Insulin Glargine,Hum.Rec.Anlog [Lantus Solostar] 100 UNIT/ML P SC SCH (09:00)
[2021-01-15] MEDS ORDERED: Insulin Glargine 14 UNITS in Pre-Filled Syringe 1 EACH SC SCH (09:00)
[2021-01-15] MEDS: Gabapentin 300 MG CAP PO SCH ×2 (09:00→21:27)
[2021-01-15] MEDS: Dorzolamide HCl 2% Ophth Soln 10 ml Bottle L EYE SCH ×3 (09:00→21:26)
[2021-01-15] MEDS: hydrALAZINE 25 MG TAB PO SCH ×3 (09:01→21:27)
[2021-01-15] MEDS: Heparin 5,000 UNITS/ML VIAL SC SCH ×3 (09:01→22:35)
[2021-01-15] MEDS: levETIRAcetam 500 MG TAB PO SCH ×2 (09:02→21:27)
[2021-01-15] MEDS: Polyethylene Glycol 3350 17 GM Packet PO SCH (09:03)
[2021-01-15] MEDS: Ondansetron PF 4 MG/2 ML Vial IVP PRN ×2 (09:03→16:49)
[2021-01-15] MEDS ORDERED: Epoetin (ESRD) 20,000 UNITS/ML SC SCH (11:00)
[2021-01-15] MEDS ORDERED: Lorazepam 2 MG/ML VIAL SLOW IVP SCH ×2 (11:15→17:30)
--- NOTE | 2021-01-15 11:22 | PRG ---
DATE OF SERVICE: 01/15/2021 SUBJECTIVE: Ms. Thao is a 45-year-old female, being followed by the [facility]al Service for management of her ESRD. She did undergo hemodialysis yesterday. However, due to severe agitation, not enough fluid was removed. We are going to redo another dialysis session at least 2 hours with fluid removal of 2 L as tolerated by the patient. This morning, she is a bit agitated. We decided to give her Ativan 0.5 mg IV x1 dose. OBJECTIVE: VITAL SIGNS: Blood pressure 144/67, heart rate 71, respiratory rate 18, temperature 98.4, O2 saturation 98%. GENERAL: The patient is awake in mild pain. No chest pain or shortness of breath. HEENT: Slightly pale conjunctivae. Anicteric sclerae. NECK: No neck mass. No carotid bruits. No JVD. CHEST: No deformities. LUNGS: Clear breath sounds. HEART: Normal sinus rhythm. No murmur. No gallops. No rubs. ABDOMEN: Globular, soft, nontender. No masses. EXTREMITIES: No edema. No deformities. MEDICATIONS: Of January 15, 2021, was reviewed. LABORATORY DATA: Laboratories of January 15, 2021, white count 4.6, hemoglobin 8.8. Sodium 139, potassium 4, chloride 99, carbon dioxide 25, BUN 16, creatinine 3.11, glucose 266, calcium 8.2. ASSESSMENT AND PLAN: 1. End-stage renal disease-extra dialysis today for fluid removal. We will do a short 2-hour hemodialysis with this patient and attempt 2 L fluid removal as tolerated. 2. Anemia. Initiate Epogen with this patient. 3. Severe agitation, p.r.n. Ativan. Agree with current management. We will recheck CBC, base met in a.m. Job ID: [id number]
[2021-01-15] MEDS ORDERED: EPOETIN ALFA-EPBX (ESRD) 4,000 UNIT/ML VIAL SC SCH (12:00)
--- NOTE | 2021-01-15 14:38 | PDOC.HOSPP ---
- Subjective Encounter Date: 01/15/21 Encounter Time: 14:36 Subjective: Patient continues to experience nausea and vomiting. She underwent hemodialysis yesterday. Nursing staff report patient was somehow agitated during dialysis yesterday. - Objective Vital Signs & Weight: Vital Signs (12 hours) Temp Pulse Resp BP BP Pulse Ox 01/15/21 12:42 97.3 F L 71 16 153/72 H 100 01/15/21 07:30 98.4 F 71 15 144/67 H 98 01/15/21 03:42 99.3 F 72 16 148/65 H 100 Weight Admit Weight 95 lb 3.2 oz Weight 95 lb 3.2 oz Result Diagrams: 01/15/21 04:32 01/15/21 04:32 Additional Labs: Accuchecks 01/15/21 01/15/21 01/14/21 11:07 09:22 20:28 POC Glucose 172 H 130 H 189 H 01/14/21 17:20 POC Glucose 170 H Hospitalist ROS - Medication Medications: Active Medications Generic Name Dose Route Start Last Admin Trade Name Freq PRN Reason Stop Dose Admin Acetaminophen 650 mg 01/14/21 18:02 01/15/21 01:29 Acetaminophen 325 Mg Tab PO 650 mg Q4H PRN Administration Headache/Fever/Mild Pain (1-3) Atropine Sulfate 1 drop 01/14/21 21:00 01/15/21 08:59 Atropine Sulfate 1% Ophth Soln 5 Ml Bottle L EYE 1 drop BID MEGAN Administration Bisacodyl 10 mg 01/15/21 09:00 01/15/21 08:56 Bisacodyl 10 Mg Supp [facility] Brimonidine Tartrate 1 drop 01/14/21 21:00 01/15/21 08:59 Brimonidine Tartrate 0.2% Ophth Soln 5 Ml Bottle L EYE 1 drop TID MEGAN Administration Dorzolamide HCl 1 drop 01/14/21 21:00 01/15/21 09:00 Dorzolamide Hcl 2% Ophth Soln 10 Ml Bottle L EYE 1 drop TID MEGAN Administration Epoetin Rafat-epbx 7,500 unit 01/15/21 12:00 01/15/21 13:23 Epoetin Rafat-Epbx (Esrd) 4,000 Unit/Ml Vial SC 7,500 unit Q7D MEGAN Administration Gabapentin 300 mg 01/14/21 21:00 01/15/21 09:00 Gabapentin 300 Mg Cap PO 300 mg BID MEGAN Administration Heparin Sodium (Porcine) 5,000 units 01/14/21 09:00 01/15/21 09:01 Heparin 5,000 Units/Ml Vial SC Not Given TID MEGAN Hydralazine HCl 75 mg 01/14/21 21:00 01/15/21 09:01 Hydralazine 25 Mg Tab PO 75 mg TID MEGAN Administration Ceftriaxone Sodium 1 gm/ 100 mls @ 200 mls/hr 01/14/21 07:00 01/15/21 06:37 Sodium Chloride IVPB 100 mls Q24HR MEGAN Administration Metronidazole 500 mg/ Device 100 mls @ 100 mls/hr 01/14/21 14:00 01/15/21 13:22 IVPB 100 mls Q8HR MEGAN Administration Insulin Glargine 14 units/ 0.14 mls @ 0 mls/hr 01/15/21 09:00 01/15/21 10:53 Miscellaneous Medication SC Not Given QAM [facility] Influenza Virus Vaccine Quadrival 60 mcg 01/15/21 18:30 01/15/21 07:54 Flu Vacc [id number](6mos Up)/Pf 60 Mcg/0.5 Ml Syringe IM 01/15/21 18:31 Not Given .ONCE ONE Insulin Human Lispro 0 units 01/14/21 08:09 01/15/21 06:37 Humalog 300 Units/3 Ml Vial SC 3 unit .MILD SLIDING SCALE PRN Administration Mild Correctional Scale Levetiracetam 500 mg 01/14/21 21:00 01/15/21 09:02 Levetiracetam 500 Mg Tab PO 500 mg BID MEGAN Administration Lorazepam 0.5 mg 01/15/21 11:15 01/15/21 11:26 Lorazepam 2 Mg/Ml Vial SLOW IVP 01/15/21 15:00 0.5 mg NOW MEGAN Administration Metoprolol Succinate 50 mg 01/15/21 09:00 01/15/21 09:02 Metoprolol Succinate Xl 50 Mg Tab PO 50 mg DAILY MEGAN Administration Ondansetron HCl 4 mg 01/14/21 06:04 01/15/21 09:03 Ondansetron Pf 4 Mg/2 Ml Vial IVP 4 mg Q6H PRN Administration Nausea/Vomiting Pantoprazole Sodium 40 mg 01/15/21 09:00 01/15/21 09:02 Pantoprazole 40 Mg Tab PO 40 mg DAILY MEGAN Administration Polyethylene Glycol 17 gm 01/15/21 09:00 01/15/21 09:03 Polyethylene Glycol 3350 17 Gm Packet PO 17 gm DAILY MEGAN Administration Sevelamer Carbonate 2,400 mg 01/15/21 08:00 01/15/21 13:23 Sevelamer Carbonate 800 Mg Tab PO Not Given TID-WM MEGAN Sodium Chloride 10 ml 01/14/21 09:00 01/15/21 09:03 Flush - Normal Saline 10 Ml Syringe IVF 10 ml Q12HR MEGAN Administration Hospitalist Exam Vitals: Vital Signs (12 hours) Temp Pulse Resp BP BP Pulse Ox 01/15/21 12:42 97.3 F L 71 16 153/72 H 100 01/15/21 07:30 98.4 F 71 15 144/67 H 98 01/15/21 03:42 99.3 F 72 16 148/65 H 100 Weight Admit Weight 95 lb 3.2 oz Weight 95 lb 3.2 oz General Appearance: NAD General - other findings: Moderate distress due to nausea and vomiting. Eye: PERRL, anicteric sclera ENT: no oropharyngeal lesions, moist mucosa Neck: supple, no JVD Heart: RRR, no murmur Respiratory: CTAB, no wheezes, no rales Gastrointestinal: soft, non-tender, non-distended Extremities: no cyanosis, no edema Skin: normal turgor, no rashes Neurological: no focal deficits Hosp A/P (1) Gastroenteritis Code(s): K52.9 - NONINFECTIVE GASTROENTERITIS AND COLITIS, UNSPECIFIED Status: Acute (2) Abdominal pain Code(s): R10.9 - UNSPECIFIED ABDOMINAL PAIN Status: Acute Qualifiers: Abdominal location: generalized Qualified Code(s): R10.84 - Generalized abdominal pain (3) Diarrhea Code(s): R19.7 - DIARRHEA, UNSPECIFIED Status: Acute Qualifiers: Diarrhea type: presumed infectious Qualified Code(s): R19.7 - Diarrhea, unspecified (4) Diabetes mellitus with diabetic polyneuropathy Code(s): E11.42 - TYPE 2 DIABETES MELLITUS WITH DIABETIC POLYNEUROPATHY Status: Chronic (5) ESRD (end stage renal disease) on dialysis Code(s): N18.6 - END STAGE RENAL DISEASE; Z99.2 - DEPENDENCE ON RENAL DIALYSIS Status: Chronic (6) History of Clostridioides difficile colitis Code(s): Z86.19 - PERSONAL HISTORY OF OTHER INFECTIOUS AND PARASITIC DISEASES Status: Chronic (7) Protein-calorie malnutrition, severe Code(s): E43 - UNSPECIFIED SEVERE PROTEIN-CALORIE MALNUTRITION Status: Chronic (8) Volume overload Code(s): E87.70 - FLUID OVERLOAD, UNSPECIFIED Status: Resolved - Plan Nausea and vomiting could be secondary to uremia but should have seen improvement with significant improvement in blood urea level. Noted patient has a history of C. difficile. Her current stool is negative for C. 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 Stool lactoferrin is negative congestion against GI infection. Nephrology is following. Hemodialysis per nephrology. Supportive measures for nausea and vomiting with antiemetics. Continue current antibiotics. Blood cultures: No growth to date. Continue to follow blood cultures. Continue home antihypertensive. Hold Lantus insulin today and manage blood sugar with insulin sliding scale.
--- NOTE | 2021-01-15 15:18 | EKG ---
Test Reason : Blood Pressure : / mmHG Vent. Rate : 077 BPM Atrial Rate : 077 BPM P-R Int : 140 ms QRS Dur : 084 ms QT Int : 396 ms P-R-T Axes : 077 086 054 degrees QTc Int : 448 ms Normal sinus rhythm ST abnormality, possible digitalis effect Abnormal ECG Confirmed by APRYL VAUGHN M.D. ([id number]), website/blog editor JUAN MANUEL DOUGLASS ([id number]) on 01/15/2021 3:17:47 PM Referred By: Confirmed By:APRYL VAUGHN M.D.
[2021-01-15] MEDS ORDERED: FLU VACC QS2020-21(6MOS UP)/PF 60 MCG/0.5 ML SYRINGE IM ONE (18:30)
[2021-01-15] MEDS: hydrALAZINE 20 MG/ML VIAL SLOW IVP PRN (23:45)
[2021-01-16 04:39] LABS: #Basophils 0.1 thou/uL (0.0-0.2); #Eosinphils 0.6 thou/uL (0.0-0.7); #Lymphocytes 1.2 thou/uL (1.20-3.40); #Monocytes 0.3 thou/uL (0.11-0.59); #Neutrophils 4.1 thou/uL (1.40-6.50); %Eosinophils 9.8 % (0.0-10.0); %Lymphocytes 18.9 % (21.0-51.0); %Neutrophils 65.4 % (42.0-75.0); Hemoglobin 8.9 g/dL (12.0-16.0); Mean Corpuscular HGB CONC 33.2 g/dL (32.0-36.0); Mean Corpuscular Hemoglobin 30.3 pg (27.0-31.0); Mean Corpuscular Volume 91.3 fL (78.0-98.0); Platelet Count 123 thou/uL (130-400); RBC Distribution Width 13.6 % (11.5-14.5); Red Blood Cell (RBC) Count 2.93 mill/uL (4.20-5.40); White Blood Cell (WBC) Count 6.2 thou/uL (4.8-10.8)
[2021-01-16 05:04] LABS: Anion Gap 26 mmol/L (10-20); BUN (Urea Nitrogen) 9 mg/dL (7.0-18.7); Calc. Creatinine Clearance 19 mL/min (70-130); Calcium 8.7 mg/dL (7.8-10.44); Carbon Dioxide 18 mmol/L (22-29); Chloride 100 mmol/L (98-107); Glucose 155 mg/dL (70-105); Potassium 3.7 mmol/L (3.5-5.1); Sodium 140 mmol/L (136-145)
[2021-01-16] MEDS: metroNIDAZOLE 500 MG in Premix Bag 1 BAG IVPB SCH (06:01)
[2021-01-16] MEDS: cefTRIAXone\\ROCEPHIN 1 GM in Sodium Chloride 0.9% 100 ML IVPB SCH (07:16)
[2021-01-16] MEDS: Polyethylene Glycol 3350 17 GM Packet PO SCH (08:42)
[2021-01-16] MEDS: levETIRAcetam 500 MG TAB PO SCH ×2 (08:42→21:33)
[2021-01-16] MEDS: Sevelamer Carbonate 800 MG TAB PO SCH ×4 (08:42→21:10)
[2021-01-16] MEDS: Dorzolamide HCl 2% Ophth Soln 10 ml Bottle L EYE SCH ×3 (08:43→22:32)
[2021-01-16] MEDS: Brimonidine Tartrate 0.2% Ophth Soln 5 ml Bottle L EYE SCH ×3 (08:44→22:33)
[2021-01-16] MEDS: Atropine Sulfate 1% Ophth Soln 5 ml Bottle L EYE SCH ×2 (08:44→22:32)
[2021-01-16] MEDS: Gabapentin 300 MG CAP PO SCH ×2 (08:45→21:15)
[2021-01-16] MEDS: hydrALAZINE 25 MG TAB PO SCH ×3 (09:00→21:17)
[2021-01-16] MEDS: Heparin 5,000 UNITS/ML VIAL SC SCH ×4 (09:00→21:45)
--- NOTE | 2021-01-16 10:22 | PRG ---
DATE OF SERVICE: 01/16/2021 SUBJECTIVE: Ms. Thao is a 45-year-old female and being followed up by the Renal Service for her maintenance hemodialysis. She underwent a 2-hour dialysis with fluid removal. She was quite agitated yesterday and she has received 0.5 mg IV of Ativan. This morning, she is feeling better. She has no new complaints. She denies any chest pain or shortness of breath. OBJECTIVE: VITAL SIGNS: Blood pressure 150/66, heart rate 77, respiratory rate 16, O2 saturation 97% on room air. GENERAL: The patient is sleeping, but arousable and comfortable, not in distress. SKIN: Adequate turgor. HEENT: She has slightly pale conjunctivae. Anicteric sclerae. NECK: No neck mass. No carotid bruits. No JVD. CHEST: No deformities. LUNGS: Clear breath sounds. No wheezing. No crackles. HEART: Normal sinus rhythm. No murmur. No gallops. No rubs. ABDOMEN: Globular, soft, nontender. No masses. EXTREMITIES: No edema. No deformities. MEDICATIONS: Of January 16, 2021, was reviewed. LABORATORY DATA: Laboratories of January 16, 2021, white count 6.2, hemoglobin 8.9. Sodium 140, potassium 3.7, chloride 100, carbon dioxide 18, BUN 9, creatinine 2.63, glucose 155, calcium 8.7. ASSESSMENT AND PLAN: 1. Anemia. Continuing weekly Epogen regimen; blood transfusion for hemoglobin less than 7. 2. End-stage renal disease, stable. The patient received 2 consecutive dialysis for volume removal. Doing well overall. No indication today for an acute dialysis intervention. We will continue current Sunday, Sunday, and Sunday hemodialysis regimen with this patient. [facility] ID: [id number] [facility]
--- NOTE | 2021-01-16 11:40 | PDOC.HOSPP ---
- Subjective Encounter Date: 01/16/21 Encounter Time: 11:39 Subjective: Patient states her nausea has resolved. Her oral intake remained poor. She stated she does not feel like eating. She has no other complain. - Objective Vital Signs & Weight: Vital Signs (12 hours) Temp Pulse Resp BP BP Pulse Ox 01/16/21 09:00 77 01/16/21 07:26 77 16 150/66 H 97 01/16/21 03:18 97.4 F L 97 20 174/79 H 98 01/16/21 00:35 70 190/76 H 01/15/21 23:45 68 182/77 H Weight Admit Weight 95 lb 3.2 oz Weight 95 lb 3.2 oz I&O: 01/15/21 01/16/21 01/17/21 06:59 06:59 06:59 Intake Total 570 Balance 570 Result Diagrams: 01/16/21 04:23 01/16/21 04:23 Additional Labs: Accuchecks 01/16/21 01/16/21 01/15/21 10:54 05:45 20:11 POC Glucose 135 H 152 H 99 01/15/21 01/15/21 16:46 11:07 POC Glucose 174 H 172 H Hospitalist ROS - Medication Medications: Active Medications Generic Name Dose Route Start Last Admin Trade Name Freq PRN Reason Stop Dose Admin Acetaminophen 650 mg 01/14/21 18:02 01/15/21 01:29 Acetaminophen 325 Mg Tab PO 650 mg Q4H PRN Administration Headache/Fever/Mild Pain (1-3) Atropine Sulfate 1 drop 01/14/21 21:00 01/16/21 08:44 Atropine Sulfate 1% Ophth Soln 5 Ml Bottle L EYE 1 drop BID MEGAN Administration Bisacodyl 10 mg 01/15/21 09:00 01/15/21 08:56 Bisacodyl 10 Mg Supp MI Not Given TuThSa MEGAN Brimonidine Tartrate 1 drop 01/14/21 21:00 01/16/21 08:44 Brimonidine Tartrate 0.2% Ophth Soln 5 Ml Bottle L EYE 1 drop TID MEGAN Administration Dorzolamide HCl 1 drop 01/14/21 21:00 01/16/21 08:43 Dorzolamide Hcl 2% Ophth Soln 10 Ml Bottle L EYE 1 drop TID MEGAN Administration Epoetin Rafat-epbx 7,500 unit 01/15/21 12:00 01/15/21 13:23 Epoetin Rafat-Epbx (Esrd) 4,000 Unit/Ml Vial SC 7,500 unit Q7D MEGAN Administration Gabapentin 300 mg 01/14/21 21:00 01/16/21 08:45 Gabapentin 300 Mg Cap PO 300 mg BID MEGAN Administration Heparin Sodium (Porcine) 5,000 units 01/14/21 09:00 01/16/21 09:00 Heparin 5,000 Units/Ml Vial SC Not Given TID MEGAN Hydralazine HCl 75 mg 01/14/21 21:00 01/16/21 09:00 Hydralazine 25 Mg Tab PO 75 mg TID MEGAN Administration Hydralazine HCl 10 mg 01/14/21 18:05 01/15/21 23:45 Hydralazine 20 Mg/Ml Vial SLOW IVP 10 mg Q4H PRN Administration Hypertension Ceftriaxone Sodium 1 gm/ 100 mls @ 200 mls/hr 01/14/21 07:00 01/16/21 07:16 Sodium Chloride IVPB 100 mls Q24HR MEGAN Administration Metronidazole 500 mg/ Device 100 mls @ 100 mls/hr 01/14/21 14:00 01/16/21 06:01 IVPB 100 mls Q8HR MEGAN Administration Insulin Human Lispro 0 units 01/14/21 08:09 01/15/21 06:37 Humalog 300 Units/3 Ml Vial SC 3 unit .MILD SLIDING SCALE PRN Administration Mild Correctional Scale Levetiracetam 500 mg 01/14/21 21:00 01/16/21 08:42 Levetiracetam 500 Mg Tab PO 500 mg BID MEGAN Administration Metoprolol Succinate 50 mg 01/15/21 09:00 01/16/21 08:43 Metoprolol Succinate Xl 50 Mg Tab PO 50 mg DAILY MEGAN Administration Ondansetron HCl 4 mg 01/14/21 06:04 01/15/21 21:27 Ondansetron Odt 4 Mg Tab PO 4 mg Q6H PRN Administration Nausea/Vomiting Ondansetron HCl 4 mg 01/14/21 06:04 01/15/21 16:49 Ondansetron Pf 4 Mg/2 Ml Vial IVP 4 mg Q6H PRN Administration Nausea/Vomiting Pantoprazole Sodium 40 mg 01/15/21 09:00 01/16/21 08:42 Pantoprazole 40 Mg Tab PO 40 mg DAILY MEGAN Administration Polyethylene Glycol 17 gm 01/15/21 09:00 01/16/21 08:42 Polyethylene Glycol 3350 17 Gm Packet PO 17 gm DAILY MEGAN Administration Sevelamer Carbonate 2,400 mg 01/15/21 08:00 01/16/21 11:37 Sevelamer Carbonate 800 Mg Tab PO Not Given TID-WM MEGAN Sodium Chloride 10 ml 01/14/21 09:00 01/16/21 08:59 Flush - Normal Saline 10 Ml Syringe IVF 10 ml Q12HR MEGAN Administration Hospitalist Exam Vitals: Vital Signs (12 hours) Temp Pulse Resp BP BP Pulse Ox 01/16/21 09:00 77 01/16/21 07:26 77 16 150/66 H 97 01/16/21 03:18 97.4 F L 97 20 174/79 H 98 01/16/21 00:35 70 190/76 H 01/15/21 23:45 68 182/77 H Weight Admit Weight 95 lb 3.2 oz Weight 95 lb 3.2 oz General Appearance: NAD, awake alert Eye - other findings: Legally blind Neck: supple, no JVD Heart: RRR, no murmur Respiratory: CTAB, no wheezes, no rales Gastrointestinal: soft, non-tender, non-distended Extremities: no cyanosis, no edema Skin: normal turgor Neurological: no new deficit Psychiatric: normal behavior, A&O x 3 Hosp A/P (1) Gastroenteritis Code(s): K52.9 - NONINFECTIVE GASTROENTERITIS AND COLITIS, UNSPECIFIED Status: Acute (2) Abdominal pain Code(s): R10.9 - UNSPECIFIED ABDOMINAL PAIN Status: Acute Qualifiers: Abdominal location: generalized Qualified Code(s): R10.84 - Generalized abdominal pain (3) Diarrhea Code(s): R19.7 - DIARRHEA, UNSPECIFIED Status: Acute Qualifiers: Diarrhea type: presumed infectious Qualified Code(s): R19.7 - Diarrhea, unspecified (4) Diabetes mellitus with diabetic polyneuropathy Code(s): E11.42 - TYPE 2 DIABETES MELLITUS WITH DIABETIC POLYNEUROPATHY Status: Chronic (5) ESRD (end stage renal disease) on dialysis Code(s): N18.6 - END STAGE RENAL DISEASE; Z99.2 - DEPENDENCE ON RENAL DIALYSIS Status: Chronic (6) History of Clostridioides difficile colitis Code(s): Z86.19 - PERSONAL HISTORY OF OTHER INFECTIOUS AND PARASITIC DISEASES Status: Chronic (7) Protein-calorie malnutrition, severe Code(s): E43 - UNSPECIFIED SEVERE PROTEIN-CALORIE MALNUTRITION Status: Chronic (8) Volume overload Code(s): E87.70 - FLUID OVERLOAD, UNSPECIFIED Status: Resolved - Plan Nausea and vomiting has resolved. Patient does not have any diarrhea. Her current stool is negative for C. 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 Stool lactoferrin is negative suggesting against GI infection. Nephrology is following. Hemodialysis per nephrology. Antiemetics as needed. Blood cultures: No growth to date. Discontinue antibiotics. Continue home antihypertensive. Hold Lantus insulin today and manage blood sugar with insulin sliding scale given poor oral intake. Patient encouraged to eat. Possible discharge to long-term in a.m.
[2021-01-16] MEDS: Acetaminophen 325 MG TAB PO PRN (21:28)
[2021-01-16] MEDS: Ondansetron PF 4 MG/2 ML Vial IVP PRN (22:34)
[2021-01-16] MEDS: hydrALAZINE 20 MG/ML VIAL SLOW IVP PRN (22:54)
[2021-01-17] MEDS ORDERED: Amlodipine 5 MG TAB PO SCH (01:30)
[2021-01-17] MEDS ORDERED: hydrALAZINE 20 MG/ML VIAL SLOW IVP SCH (04:00)
[2021-01-17 04:36] LABS: #Basophils 0.1 thou/uL (0.0-0.2); #Eosinphils 0.8 thou/uL (0.0-0.7); #Lymphocytes 1.3 thou/uL (1.20-3.40); #Monocytes 0.4 thou/uL (0.11-0.59); #Neutrophils 2.2 thou/uL (1.40-6.50); %Basophils 1.6 % (0.0-1.0); %Eosinophils 15.9 % (0.0-10.0); %Lymphocytes 27.2 % (21.0-51.0); %Monocytes 8.1 % (0.0-10.0); %Neutrophils 47.2 % (42.0-75.0); Hemoglobin 9.8 g/dL (12.0-16.0); Mean Corpuscular HGB CONC 33.9 g/dL (32.0-36.0); Mean Corpuscular Hemoglobin 30.3 pg (27.0-31.0); Mean Corpuscular Volume 89.5 fL (78.0-98.0); Mean Platelet Volume 8.5 fL (7.4-10.4); Platelet Count 137 thou/uL (130-400); RBC Distribution Width 13.6 % (11.5-14.5); Red Blood Cell (RBC) Count 3.24 mill/uL (4.20-5.40); White Blood Cell (WBC) Count 4.7 thou/uL (4.8-10.8)
[2021-01-17 04:58] LABS: Anion Gap 20 mmol/L (10-20); BUN (Urea Nitrogen) 14 mg/dL (7.0-18.7); Calc. Creatinine Clearance 11 mL/min (70-130); Calcium 8.5 mg/dL (7.8-10.44); Carbon Dioxide 23 mmol/L (22-29); Chloride 99 mmol/L (98-107); Glucose 281 mg/dL (70-105); Potassium 4.3 mmol/L (3.5-5.1); Sodium 138 mmol/L (136-145)
[2021-01-17 06:04] LABS: Phosphorus 4.7 mg/dL (2.3-4.7)
[2021-01-17] MEDS: Ondansetron PF 4 MG/2 ML Vial IVP PRN (08:22)
--- NOTE | 2021-01-17 08:45 | PRG ---
DATE OF SERVICE: 01/17/2021 SUBJECTIVE: Ms. Thao is a 45-year-old female, being followed by the Renal Service for management of her ESRD. The patient was complaining of nausea. She was given Zofran 4 mg IV earlier. She denies chest pain or shortness of breath. OBJECTIVE: VITAL SIGNS: Blood pressure is 182/82, heart rate 66, respiratory rate 16, temperature 97.6, and O2 saturation 99%. GENERAL: The patient is awake, alert, comfortable, not in overt distress. SKIN: Adequate turgor. HEENT: Slightly pale conjunctivae. Anicteric sclerae. NECK: No neck mass. No carotid bruits. No JVD. CHEST: No deformities. LUNGS: Clear breath sounds. No wheezing. No crackles. HEART: Normal sinus rhythm. No murmur. No gallops. No rubs. ABDOMEN: Globular, soft, and nontender. No masses. EXTREMITIES: No edema. No deformities. MEDICATIONS: Medications of January 17, 2021, reviewed. LABORATORY DATA: Laboratories of January 17, 2021, white count 4.7 and hemoglobin 9.8. Sodium 138, potassium 4.3, chloride 99, carbon dioxide 23, BUN 14, creatinine 4.35, glucose 281, and calcium 8.5. ASSESSMENT AND PLAN: 1. Anemia. Continue weekly Epogen. 2. Labile hypertension. Continue current BP medications. Adjust as needed. 3. End-stage renal disease - the patient has been scheduled for a 3-hour hemodialysis today. Again, fluid removal as tolerated by the patient. 4. Nausea - on p.r.n. IV Zofran. Agree with current management. Job ID: [id number]
--- NOTE | 2021-01-17 08:53 | PDOC.HOSPP ---
- Subjective Encounter Date: 01/17/21 Encounter Time: 11:00 Subjective: Patient reported some chest pain to the nurse a few minutes ago. However now she just reports nausea to me. No vomiting today. States that she feels better than yesterday but still feeling just bad. Blood pressures have remained elevated and she is supposed to go to dialysis in the next hour or 2 and get volume removal. - Objective Vital Signs & Weight: Vital Signs (12 hours) Temp Pulse Resp BP BP BP Pulse Ox 01/17/21 07:27 97.6 F 66 16 182/82 H 99 01/17/21 04:10 62 213/95 H 01/17/21 03:47 98.1 F 61 15 213/95 H 98 01/17/21 01:54 61 185/85 H 01/16/21 22:54 73 216/80 H 01/16/21 21:17 73 205/92 H 01/16/21 20:56 98.3 F 64 18 205/92 H 100 Weight Admit Weight 95 lb 3.2 oz Weight 84 lb 14.047 oz I&O: 01/16/21 01/17/21 01/18/21 06:59 06:59 06:59 Intake Total 570 870 Output Total 0 Balance 570 870 Result Diagrams: 01/17/21 04:02 01/17/21 04:02 Additional Labs: Accuchecks 01/17/21 01/16/21 01/16/21 05:20 20:11 17:08 POC Glucose 257 H 311 H 218 H 01/16/21 10:54 POC Glucose 135 H Hospitalist ROS - Review of Systems Constitutional: denies: fever, chills Respiratory: denies: cough, shortness of breath Cardiovascular: denies: chest pain, palpitations Gastrointestinal: reports: nausea. denies: vomiting, abdominal pain, diarrhea, constipation - Medication Medications: Active Medications Generic Name Dose Route Start Last Admin Trade Name Freq PRN Reason Stop Dose Admin Acetaminophen 650 mg 01/14/21 18:02 01/16/21 21:28 Acetaminophen 325 Mg Tab PO 650 mg Q4H PRN Administration Headache/Fever/Mild Pain (1-3) Atropine Sulfate 1 drop 01/14/21 21:00 01/16/21 22:32 Atropine Sulfate 1% Ophth Soln 5 Ml Bottle L EYE 1 drop BID MEGAN Administration Bisacodyl 10 mg 01/15/21 09:00 01/15/21 08:56 Bisacodyl 10 Mg Supp NC Not Given TuThSa [facility] Brimonidine Tartrate 1 drop 01/14/21 21:00 01/16/21 22:33 Brimonidine Tartrate 0.2% Ophth Soln 5 Ml Bottle L EYE 1 drop TID MEGAN Administration Dorzolamide HCl 1 drop 01/14/21 21:00 01/16/21 22:32 Dorzolamide Hcl 2% Ophth Soln 10 Ml Bottle L EYE 1 drop TID MEGAN Administration Epoetin Rafat-epbx 7,500 unit 01/15/21 12:00 01/15/21 13:23 Epoetin Rafat-Epbx (Esrd) 4,000 Unit/Ml Vial SC 7,500 unit Q7D MEGAN Administration Gabapentin 300 mg 01/14/21 21:00 01/16/21 21:15 Gabapentin 300 Mg Cap PO 300 mg BID MEGAN Administration Heparin Sodium (Porcine) 5,000 units 01/14/21 09:00 01/16/21 21:45 Heparin 5,000 Units/Ml Vial SC Not Given TID [facility] Hydralazine HCl 75 mg 01/14/21 21:00 01/16/21 21:17 Hydralazine 25 Mg Tab PO 75 mg TID [facility] Administration Hydralazine HCl 10 mg 01/14/21 18:05 01/16/21 22:54 Hydralazine 20 Mg/Ml Vial SLOW IVP 10 mg Q4H PRN Administration Hypertension Insulin Human Lispro 0 units 01/14/21 08:09 01/15/21 06:37 Humalog 300 Units/3 Ml Vial SC 3 unit .MILD SLIDING SCALE PRN Administration Mild Correctional Scale Levetiracetam 500 mg 01/14/21 21:00 01/16/21 21:33 Levetiracetam 500 Mg Tab PO 500 mg BID [facility] Administration Metoprolol Succinate 50 mg 01/15/21 09:00 01/16/21 08:43 Metoprolol Succinate Xl 50 Mg Tab PO 50 mg DAILY [facility] Administration Ondansetron HCl 4 mg 01/14/21 06:04 01/15/21 21:27 Ondansetron Odt 4 Mg Tab PO 4 mg Q6H PRN Administration Nausea/Vomiting Ondansetron HCl 4 mg 01/14/21 06:04 01/17/21 08:22 Ondansetron Pf 4 Mg/2 Ml Vial IVP 4 mg Q6H PRN Administration Nausea/Vomiting Pantoprazole Sodium 40 mg 01/15/21 09:00 01/16/21 08:42 Pantoprazole 40 Mg Tab PO 40 mg DAILY MEGAN Administration Polyethylene Glycol 17 gm 01/15/21 09:00 01/16/21 08:42 Polyethylene Glycol 3350 17 Gm Packet PO 17 gm DAILY MEGAN Administration Sevelamer Carbonate 2,400 mg 01/15/21 08:00 01/16/21 21:10 Sevelamer Carbonate 800 Mg Tab PO Not Given TID-WM MEGAN Sodium Chloride 10 ml 01/14/21 09:00 01/16/21 21:30 Flush - Normal Saline 10 Ml Syringe IVF 10 ml Q12HR MEGAN Administration Hospitalist Exam Vitals: Vital Signs (12 hours) Temp Pulse Resp BP BP BP Pulse Ox 01/17/21 07:27 97.6 F 66 16 182/82 H 99 01/17/21 04:10 62 213/95 H 01/17/21 03:47 98.1 F 61 15 213/95 H 98 01/17/21 01:54 61 185/85 H 01/16/21 22:54 73 216/80 H 01/16/21 21:17 73 205/92 H 01/16/21 20:56 98.3 F 64 18 205/92 H 100 Weight Admit Weight 95 lb 3.2 oz Weight 84 lb 14.047 oz General Appearance: NAD, awake alert ENT: moist mucosa Heart: RRR, no murmur, no gallops, no rubs Respiratory: CTAB, no wheezes, no rales, no ronchi Gastrointestinal: soft, non-tender, non-distended, normal bowel sounds Extremities: no edema Psychiatric: normal affect, normal behavior, A&O x 3 Hosp A/P - Plan (1) Gastroenteritis Code(s): K52.9 - NONINFECTIVE GASTROENTERITIS AND COLITIS, UNSPECIFIED Status: Acute (2) Abdominal pain Code(s): R10.9 - UNSPECIFIED ABDOMINAL PAIN Status: Acute Qualifiers: Abdominal location: generalized Qualified Code(s): R10.84 - Generalized abdominal pain (3) Diarrhea Code(s): R19.7 - DIARRHEA, UNSPECIFIED Status: Acute Qualifiers: Diarrhea type: presumed infectious Qualified Code(s): R19.7 - Diarrhea, unspecified (4) Diabetes mellitus with diabetic polyneuropathy Code(s): E11.42 - TYPE 2 DIABETES MELLITUS WITH DIABETIC POLYNEUROPATHY Status: Chronic (5) ESRD (end stage renal disease) on dialysis Code(s): N18.6 - END STAGE RENAL DISEASE; Z99.2 - DEPENDENCE ON RENAL DIALYSIS Status: Chronic (6) History of Clostridioides difficile colitis Code(s): Z86.19 - PERSONAL HISTORY OF OTHER INFECTIOUS AND PARASITIC DISEASES Status: Chronic (7) Protein-calorie malnutrition, severe Code(s): E43 - UNSPECIFIED SEVERE PROTEIN-CALORIE MALNUTRITION Status: Chronic (8) Volume overload Code(s): E87.70 - FLUID OVERLOAD, UNSPECIFIED Status: Resolved - Plan Complaint of chest pain earlier today nurse. Will get EKG and cardiac markers set. Likely secondary to her persistent hypertension from volume overload. Nausea improved and vomiting has resolved. Patient does not have any diarrhea. Her current stool is negative for C. 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 Stool lactoferrin is negative suggesting against GI infection. Nephrology is following. Hemodialysis per nephrology. Antiemetics as needed. Blood cultures: No growth to date. Discontinue antibiotics. Continue home antihypertensive. Held Lantus insulin yesterday and manage blood sugar with insulin sliding scale given poor oral intake. Blood sugars now up. Will restart insulin. Patient encouraged to eat. Possible discharge to retirement today after dialysis if okay with Dr. Shepard
[2021-01-17] MEDS ORDERED: Insulin Glargine 10 UNITS in Pre-Filled Syringe 1 EACH SC SCH (09:00)
[2021-01-17] MEDS: Acetaminophen 325 MG TAB PO PRN ×2 (10:16→14:44)
[2021-01-17] MEDS: Sevelamer Carbonate 800 MG TAB PO SCH ×3 (10:17→17:04)
[2021-01-17] MEDS: hydrALAZINE 25 MG TAB PO SCH ×3 (10:19→21:39)
[2021-01-17] MEDS: Gabapentin 300 MG CAP PO SCH ×2 (10:19→21:39)
[2021-01-17] MEDS: levETIRAcetam 500 MG TAB PO SCH ×2 (10:20→21:39)
[2021-01-17] MEDS: Polyethylene Glycol 3350 17 GM Packet PO SCH (10:21)
[2021-01-17] MEDS: Dorzolamide HCl 2% Ophth Soln 10 ml Bottle L EYE SCH ×3 (10:23→21:41)
[2021-01-17] MEDS: Brimonidine Tartrate 0.2% Ophth Soln 5 ml Bottle L EYE SCH ×3 (10:23→21:41)
[2021-01-17] MEDS: Heparin 5,000 UNITS/ML VIAL SC SCH ×3 (10:24→21:39)
[2021-01-17] MEDS: Atropine Sulfate 1% Ophth Soln 5 ml Bottle L EYE SCH ×2 (10:24→21:41)
[2021-01-17] MEDS ORDERED: ALPRAZolam 0.5 MG TAB PO SCH (11:45)
[2021-01-17 12:40] LABS: CKMB 1.7 ng/mL (0-6.6)
[2021-01-17 16:34] LABS: Troponin I 0.283 ng/mL (< 0.028)
[2021-01-17 20:44] LABS: Troponin I 0.383 ng/mL (< 0.028)
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
[2021-01-17] MEDS: hydrALAZINE 20 MG/ML VIAL SLOW IVP PRN (23:56)
[2021-01-18 07:08] LABS: #Eosinphils 0.6 thou/uL (0.0-0.7); #Lymphocytes 0.9 thou/uL (1.20-3.40); #Monocytes 0.3 thou/uL (0.11-0.59); #Neutrophils 2.8 thou/uL (1.40-6.50); %Basophils 0.5 % (0.0-1.0); %Eosinophils 12.1 % (0.0-10.0); %Lymphocytes 19.5 % (21.0-51.0); %Monocytes 7.3 % (0.0-10.0); %Neutrophils 60.6 % (42.0-75.0); Hemoglobin 10.4 g/dL (12.0-16.0); Mean Corpuscular HGB CONC 33.9 g/dL (32.0-36.0); Mean Corpuscular Hemoglobin 30.8 pg (27.0-31.0); Mean Corpuscular Volume 90.9 fL (78.0-98.0); Mean Platelet Volume 7.9 fL (7.4-10.4); Platelet Count 129 thou/uL (130-400); RBC Distribution Width 13.3 % (11.5-14.5); Red Blood Cell (RBC) Count 3.38 mill/uL (4.20-5.40); White Blood Cell (WBC) Count 4.7 thou/uL (4.8-10.8)
[2021-01-18 07:15] LABS: Anion Gap 16 mmol/L (10-20); BUN (Urea Nitrogen) 7 mg/dL (7.0-18.7); Calc. Creatinine Clearance 15 mL/min (70-130); Calcium 8.9 mg/dL (7.8-10.44); Carbon Dioxide 28 mmol/L (22-29); Chloride 98 mmol/L (98-107); Glucose 438 mg/dL (70-105); Potassium 3.6 mmol/L (3.5-5.1); Sodium 138 mmol/L (136-145)
[2021-01-18] MEDS: Atropine Sulfate 1% Ophth Soln 5 ml Bottle L EYE SCH ×2 (08:33→20:46)
[2021-01-18] MEDS: Dorzolamide HCl 2% Ophth Soln 10 ml Bottle L EYE SCH ×3 (08:33→20:46)
[2021-01-18] MEDS: Brimonidine Tartrate 0.2% Ophth Soln 5 ml Bottle L EYE SCH ×3 (08:33→20:46)
[2021-01-18] MEDS: hydrALAZINE 25 MG TAB PO SCH ×3 (08:34→20:28)
[2021-01-18] MEDS: Gabapentin 300 MG CAP PO SCH ×2 (08:34→20:29)
[2021-01-18] MEDS: levETIRAcetam 500 MG TAB PO SCH ×2 (08:34→20:28)
[2021-01-18] MEDS: Bisacodyl 10 MG SUPP PR SCH (08:35)
[2021-01-18] MEDS: Polyethylene Glycol 3350 17 GM Packet PO SCH (08:35)
--- NOTE | 2021-01-18 08:35 | PDOC.HOSPP ---
- Subjective Encounter Date: 01/18/21 Encounter Time: 15:00 Subjective: Patient had her stress test earlier today. It was negative. She has had no more nausea today and has not vomited for 2 days. She was very hungry when she got back from the stress test and had a sandwich but states that she would like another one. Per nursing she had refused her insulin sliding scale so they were worried about giving her another sandwich. She did get her Lantus after getting back from the stress test so her blood sugar had gotten as high as 400. Patient is now agreeable to getting sliding scale insulin if she can get some more food. - Objective Vital Signs & Weight: Vital Signs (12 hours) Temp Pulse Resp BP BP BP Pulse Ox 01/18/21 03:06 98.1 F 61 16 162/77 H 100 01/17/21 23:56 209/93 H 01/17/21 22:52 192/138 H 01/17/21 21:00 96.7 F L 66 18 180/83 H 100 Weight Admit Weight 95 lb 3.2 oz Weight 81 lb 9.137 oz I&O: 01/17/21 01/18/21 01/19/21 06:59 06:59 06:59 Intake Total 870 480 Output Total 0 0 Balance 870 480 Result Diagrams: 01/18/21 06:56 01/18/21 06:56 Additional Labs: Accuchecks 01/18/21 01/17/21 01/17/21 06:04 22:59 16:59 POC Glucose 344 H 271 H 151 H 01/17/21 01/15/21 11:07 05:37 POC Glucose 228 H 237 H Hospitalist ROS - Review of Systems Constitutional: denies: fever, chills Respiratory: denies: cough, shortness of breath Cardiovascular: denies: chest pain, palpitations Gastrointestinal: denies: nausea, vomiting, abdominal pain (Just hungry) - Medication Medications: Active Medications Generic Name Dose Route Start Last Admin Trade Name Freq PRN Reason Stop Dose Admin Acetaminophen 650 mg 01/14/21 18:02 01/17/21 14:44 Acetaminophen 325 Mg Tab PO 650 mg Q4H PRN Administration Headache/Fever/Mild Pain (1-3) Atropine Sulfate 1 drop 01/14/21 21:00 01/17/21 21:41 Atropine Sulfate 1% Ophth Soln 5 Ml Bottle L EYE 1 drop BID MEGAN Administration Bisacodyl 10 mg 01/15/21 09:00 01/15/21 08:56 Bisacodyl 10 Mg Supp ME Not Given TuThSa [facility] Brimonidine Tartrate 1 drop 01/14/21 21:00 01/17/21 21:41 Brimonidine Tartrate 0.2% Ophth Soln 5 Ml Bottle L EYE 1 drop TID MEGAN Administration Dorzolamide HCl 1 drop 01/14/21 21:00 01/17/21 21:41 Dorzolamide Hcl 2% Ophth Soln 10 Ml Bottle L EYE 1 drop TID MEGAN Administration Epoetin Rafat-epbx 7,500 unit 01/15/21 12:00 01/15/21 13:23 Epoetin Rafat-Epbx (Esrd) 4,000 Unit/Ml Vial SC 7,500 unit Q7D [facility] Administration Gabapentin 300 mg 01/14/21 21:00 01/17/21 21:39 Gabapentin 300 Mg Cap PO 300 mg BID [facility] Administration Heparin Sodium (Porcine) 5,000 units 01/14/21 09:00 01/17/21 21:39 Heparin 5,000 Units/Ml Vial SC Not Given TID [facility] Hydralazine HCl 10 mg 01/14/21 18:05 01/17/21 23:56 Hydralazine 20 Mg/Ml Vial SLOW IVP 10 mg Q4H PRN Administration Hypertension Hydralazine HCl 100 mg 01/17/21 15:00 01/17/21 21:39 Hydralazine 25 Mg Tab PO 100 mg TID [facility] Administration Insulin Glargine 10 units/ 0.1 mls @ 0 mls/hr 01/17/21 09:00 01/17/21 10:21 Miscellaneous Medication SC 0.1 mls QAM [facility] Administration Insulin Human Lispro 0 units 01/14/21 08:09 01/15/21 06:37 Humalog 300 Units/3 Ml Vial SC 3 unit .MILD SLIDING SCALE PRN Administration Mild Correctional Scale Levetiracetam 500 mg 01/14/21 21:00 01/17/21 21:39 Levetiracetam 500 Mg Tab PO 500 mg BID [facility] Administration Metoprolol Succinate 50 mg 01/17/21 21:00 01/17/21 21:40 Metoprolol Succinate Xl 50 Mg Tab PO 50 mg BID MEGAN Administration Ondansetron HCl 4 mg 01/14/21 06:04 01/15/21 21:27 Ondansetron Odt 4 Mg Tab PO 4 mg Q6H PRN Administration Nausea/Vomiting Ondansetron HCl 4 mg 01/14/21 06:04 01/17/21 08:22 Ondansetron Pf 4 Mg/2 Ml Vial IVP 4 mg Q6H PRN Administration Nausea/Vomiting Pantoprazole Sodium 40 mg 01/15/21 09:00 01/17/21 10:20 Pantoprazole 40 Mg Tab PO 40 mg DAILY MEGAN Administration Polyethylene Glycol 17 gm 01/15/21 09:00 01/17/21 10:21 Polyethylene Glycol 3350 17 Gm Packet PO Not Given DAILY MEGAN Sevelamer Carbonate 2,400 mg 01/15/21 08:00 01/17/21 17:04 Sevelamer Carbonate 800 Mg Tab PO Not Given TID-WM MEGAN Sodium Chloride 10 ml 01/14/21 09:00 01/17/21 21:42 Flush - Normal Saline 10 Ml Syringe IVF 10 ml Q12HR MEGAN Administration Hospitalist Exam Vitals: Vital Signs (12 hours) Temp Pulse Resp BP BP BP Pulse Ox 01/18/21 03:06 98.1 F 61 16 162/77 H 100 01/17/21 23:56 209/93 H 01/17/21 22:52 192/138 H 01/17/21 21:00 96.7 F L 66 18 180/83 H 100 Weight Admit Weight 95 lb 3.2 oz Weight 81 lb 9.137 oz General Appearance: NAD, awake alert ENT: moist mucosa Heart: RRR, no murmur, no gallops, no rubs Respiratory: CTAB, no wheezes, no rales, no ronchi Gastrointestinal: soft, non-tender, non-distended, normal bowel sounds Psychiatric: normal affect, normal behavior, A&O x 3 Hosp A/P - Plan (1) Gastroenteritis Code(s): K52.9 - NONINFECTIVE GASTROENTERITIS AND COLITIS, UNSPECIFIED Status: Acute (2) Abdominal pain Code(s): R10.9 - UNSPECIFIED ABDOMINAL PAIN Status: Acute Qualifiers: Abdominal location: generalized Qualified Code(s): R10.84 - Generalized abdominal pain (3) Diarrhea Code(s): R19.7 - DIARRHEA, UNSPECIFIED Status: Acute Qualifiers: Diarrhea type: presumed infectious Qualified Code(s): R19.7 - Diarrhea, unspecified (4) Diabetes mellitus with diabetic polyneuropathy Code(s): E11.42 - TYPE 2 DIABETES MELLITUS WITH DIABETIC POLYNEUROPATHY Status: Chronic (5) ESRD (end stage renal disease) on dialysis Code(s): N18.6 - END STAGE RENAL DISEASE; Z99.2 - DEPENDENCE ON RENAL DIALYSIS Status: Chronic (6) History of Clostridioides difficile colitis Code(s): Z86.19 - PERSONAL HISTORY OF OTHER INFECTIOUS AND PARASITIC DISEASES Status: Chronic (7) Protein-calorie malnutrition, severe Code(s): E43 - UNSPECIFIED SEVERE PROTEIN-CALORIE MALNUTRITION Status: Chronic (8) Volume overload Code(s): E87.70 - FLUID OVERLOAD, UNSPECIFIED Status: Resolved (9) NSTEMI - Plan Complaint of chest pain yesterday and elevated troponin. Dr. Blackman c onsulted, metoprolol titrated up, and stress test today-results normal. Dr. Blackman signed off. Nausea improved and vomiting has resolved. Patient does not have any diarrhea. Her current stool is negative for C. 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 Stool lactoferrin is negative suggesting against GI infection. Nephrology is following. Hemodialysis per nephrology. Antiemetics as needed. Blood cultures: No growth to date. Discontinue antibiotics. Continue home antihypertensive and titrate up as needed. Restarting lower dose Lantus but blood sugars shot up so was increased to full dose today however not given till after stress test. Patient encouraged to eat. We will discharge back to retirement. EXAM: CARDIAC SPECT HISTORY: Chest pain, coronary artery disease, end-stage renal disease, hypertens ion, diabetes, dyslipidemia TECHNIQUE: A myocardial perfusion scan was performed using the single isotope 1 day protocol with technetium 99m sestamibi. [10 mCi] was injected intravenously for the rest exam followed by 30 mCi for the stress study. Pharmacologic stress with Lexiscan was monitored and interpreted by Dr. Jenkins FINDINGS: Homogeneous tracer distribution is seen in the myocardial segments on stress and rest images without fixed or reversible defects. Gated SPECT LVEF: 70% Wall motion exam: Normal IMPRESSION: Normal myocardial perfusion scan
[2021-01-18] MEDS: Heparin 5,000 UNITS/ML VIAL SC SCH ×3 (08:36→20:55)
[2021-01-18] MEDS: Sevelamer Carbonate 800 MG TAB PO SCH ×3 (08:36→17:34)
[2021-01-18] MEDS ORDERED: Insulin Glargine 14 UNITS in Pre-Filled Syringe 1 EACH SC SCH (09:00)
[2021-01-18 09:13] LABS: Cardiac Risk 4.3 (Less than 4.5)
[2021-01-18] MEDS ORDERED: Regadenoson 0.4 MG/5 ML SYRINGE ONE (11:04)
--- NOTE | 2021-01-18 14:26 | NM ---
EXAM: CARDIAC SPECT HISTORY: Chest pain, coronary artery disease, end-stage renal disease, hypertension, diabetes, dyslip idemia TECHNIQUE: A myocardial perfusion scan was performed using the single isotope 1 day protocol with avani hnetium 99m sestamibi. [10 mCi] was injected intravenously for the rest exam followed by 30 mCi for the stress study. Pharmacologic stress with Lexiscan was monitored and interpreted by Dr. Jenkins FINDINGS: Homogeneous tracer distribution is seen in the myocardial segments on stress and rest image s without fixed or reversible defects. Gated SPECT LVEF: 70% Wall motion exam: Normal IMPRESSION: Normal myocardial perfusion scan
[2021-01-18 14:28] VITALS: BMI 14.9
--- NOTE | 2021-01-18 15:40 | PDOC.DS.DS ---
Provider Date of Admission: 01/17/21 12:46 Date of Discharge: 01/18/21 Admitting Provider: Michael Howard MD Consultations: Cardiology (Dr. Blackman), Nephrology (Dr. Hannon) Primary Care Physician: OUT OF TOWN Course Hospital Course: This is a 45-year-old Afro-[place] female with end-stage renal disease on dialysis also with type 1 diabetes mellitus on long-acting insulin who presented with nausea and vomiting and abdominal pain from her [facility]. Patient had been feeling sick and then missed her dialysis so she had not had dialysis for 5 days. She had abdominal pain in the emergency room. Her blood sugar was a little bit elevated and her beta hydroxy butyric acid was mildly elevated as well and had a little bit of of a gap acidosis. Patient was admitted she was given antiemetics she did have dialysis. She was noted to have hypertensive urgency with severely elevated blood pressures. Her blood pressure medicines had to be titrated up. With new medications and dialysis removal of fluid she did have improvement in her blood pressures. During her hospitalization she did have an episode of chest pain and a troponin was elevated at 0.3. Dr. Blackman was consulted and he did a nuclear medicine stress test which was negative. He did titrate her medicines further. Patient's nausea vomiting eventually resolved. Her abdominal pain was completely resolved. She was eating well the day of discharge, though her blood sugars did go up into the 400s as her insulin was held this morning until after her stress test. She has now gotten her insulin and is being discharged back to her [facility]. Pertinent Studies: EXAM: CARDIAC SPECT HISTORY: Chest pain, coronary artery disease, end-stage renal disease, hypertension, diabetes, dyslipidemia TECHNIQUE: A myocardial perfusion scan was performed using the single isotope 1 day protocol with technetium 99m sestamibi. [10 mCi] was injected intravenously for the rest exam followed by 30 mCi for the stress study. Pharmacologic stress with Lexiscan was monitored and interpreted by Dr. Jenkins FINDINGS: Homogeneous tracer distribution is seen in the myocardial segments on stress and rest images without fixed or reversible defects. Gated SPECT LVEF: 70% Wall motion exam: Normal IMPRESSION: Normal myocardial perfusion scan CT ABDOMEN AND PELVIS WITHOUT CONTRAST: COMPARISON: 12/07/2020, 10/22/2020, and 08/27/2019. HISTORY: Nausea and vomiting with abdominal pain. TECHNIQUE: Multiple contiguous axial images were obtained in a CT of the abdomen and pelvis without contrast. Sagittal and coronal reformats were performed. FINDINGS: The kidneys are small and atrophic. There are stable hypodensities in both kidneys. The hypodensity in the left kidney demonstrates slight increased Hounsfield unit value and is not definitely consistent with a simple cyst. This remains stable compared to the prior CT. The liver, gallbladder, adrenal glands, spleen, and pancreas are unremarkable. No free air, free fluid or stranding changes are seen in the abdomen or pelvis. Apparent thickening of the wall of the rectum may be secondary to its decompressed state. No abnormality was seen in this location on the prior examination. There are a few scattered diverticula in the colon. The small bowel is normal in caliber. The reproductive organs are unremarkable. Atherosclerotic calcifications are seen. No abdominal or pelvic lymphadenopathy are appreciated. There is a small right pleural effusion with adjacent atelectasis. The abdominal wall soft tissues are unremarkable. The bones are unremarkable. IMPRESSION: 1. No evidence of acute intraabdominal/pelvic abnormality. 2. Stable renal hypodensities likely represent cysts. The lesion in the left kidney is not definitely compatible with a simple cyst but may represent a hyperdense cyst. Lab Results: 01/18/21 06:56 01/18/21 06:56 Abnormal Lab Results - Last 48 hrs 01/17/21 04:02: Creatinine 4.35 H 01/17/21 04:02: WBC 4.7 L, RBC 3.24 L, Hgb 9.8 L, Hct 29.0 L, Eosinophils % 15.9 H, Basophils % 1.6 H, Eosinophils # 0.8 H 01/17/21 11:50: Troponin I 0.319 H* 01/17/21 15:56: Troponin I 0.283 H 01/17/21 19:35: Troponin I 0.383 H* 01/18/21 06:56: Creatinine 2.82 H 01/18/21 06:56: WBC 4.7 L, RBC 3.38 L, Hgb 10.4 L, Hct 30.7 L, Plt Count 129 L, Lymphocytes % 19.5 L, Eosinophils % 12.1 H, Lymphocytes # 0.9 L 01/18/21 06:56: Triglycerides 153 H, Cholesterol 219 H Microbiology - Entire Visit 01/14/21 06:49 Venous blood - Right Arm Blood Culture - Preliminary NO GROWTH AT 48 HOURS 01/14/21 06:48 Venous blood - Right Hand Blood Culture - Preliminary NO GROWTH AT 48 HOURS 01/14/21 17:58 Stool C. difficile GDH Antigen & Toxins - Final 01/14/21 17:58 Stool Stool Lactoferrin - Final 01/14/21 02:55 Stool - Pending Stool Occult Blood (ARGELIA) - Final Vitals: Vital Signs (12 hours) Temp Pulse Resp BP Pulse Ox 01/18/21 15:07 97.2 F L 61 17 186/91 H 99 01/18/21 15:06 67 01/18/21 12:59 97.1 F L 67 18 157/72 H 99 01/18/21 08:31 100 01/18/21 08:30 98.1 F 59 L 18 192/82 H 100 Weight Admit Weight 95 lb 3.2 oz Weight 81 lb 9.137 oz Physical Exam: The patient was seen and examined on the day of discharge. Problem Assessment: (1) Gastroenteritis Code(s): K52.9 - NONINFECTIVE GASTROENTERITIS AND COLITIS, UNSPECIFIED Status: Acute (2) Abdominal pain Code(s): R10.9 - UNSPECIFIED ABDOMINAL PAIN Status: Acute Qualifiers: Abdominal location: generalized Qualified Code(s): R10.84 - Generalized abdominal pain (3) Diarrhea Code(s): R19.7 - DIARRHEA, UNSPECIFIED Status: Acute Qualifiers: Diarrhea type: presumed infectious Qualified Code(s): R19.7 - Diarrhea, unspecified (4) Diabetes mellitus with diabetic polyneuropathy Code(s): E11.42 - TYPE 2 DIABETES MELLITUS WITH DIABETIC POLYNEUROPATHY Status: Chronic (5) ESRD (end stage renal disease) on dialysis Code(s): N18.6 - END STAGE RENAL DISEASE; Z99.2 - DEPENDENCE ON RENAL DIALYSIS Status: Chronic (6) History of Clostridioides difficile colitis Code(s): Z86.19 - PERSONAL HISTORY OF OTHER INFECTIOUS AND PARASITIC DISEASES Status: Chronic (7) Protein-calorie malnutrition, severe Code(s): E43 - UNSPECIFIED SEVERE PROTEIN-CALORIE MALNUTRITION Status: Chronic (8) Volume overload Code(s): E87.70 - FLUID OVERLOAD, UNSPECIFIED Status: Resolved (9) Type II myocardial infarction due to elevated blood pressures Plan of Treatment: Patient can go back to [facility]ci with increased dosages of her blood pressure medicines. Zofran as needed should nausea and vomiting return. Time Spent in discharge related activities (mins): 35 Plan Home Medications: Medication Instructions Recorded Confirmed Type Atropine Sulfate [Atropine 1% 1 drop L EYE BID 03/11/19 01/14/21 History Ophth Soln] Gabapentin [Neurontin] 300 mg PO BID 03/28/19 01/14/21 History Acetaminophen [Tylenol Regular 650 mg PO Q4H PRN tab 08/30/19 01/14/21 Rx Strength] HumaLOG [HumaLOG Vial] 0 unit SC ACHS PRN 11/10/19 01/14/21 History levETIRAcetam [Keppra] 500 mg PO BID 06/24/20 01/14/21 History Ferric Citrate [Auryxia] 1 g PO TID-WM PRN 10/23/20 01/14/21 History Sevelamer Carbonate [Renvela] 1 packet PO TID-WM 10/23/20 01/14/21 History Brimonidine Tartrate [Brimonidine 1 drop L EYE TID 10/24/20 01/14/21 History Tartrate 0.15% Ophth Soln] Dorzolamide HCl/Pf [Dorzolamide 2% 1 drop L EYE TID 10/24/20 01/14/21 History Eye Drop] Pantoprazole [Protonix] 40 mg PO DAILY #30 tab 11/26/20 01/14/21 Rx Glucagon,Human Recombinant 1 mg IM PRN PRN 12/07/20 01/14/21 History [Glucagon Emergency Kit] Bisacodyl [Dulcolax] 10 mg NC DAILY supp 12/09/20 01/14/21 Rx Loperamide HCl [Loperamide] 2 mg PO Q6HR PRN 01/14/21 01/14/21 History Polyethylene Glycol 3350 [Miralax] 17 gm PO DAILY 01/14/21 01/14/21 History Epoetin Rafat-Epbx [Retacrit] 7,500 unit SC Q7D vial 01/17/21 Rx Ondansetron [Zofran ODT] 4 mg PO Q6H PRN tab 01/17/21 Rx Insulin Glargine [Lantus Vial] 14 units SC QAM vial 02/23/21 Rx Metoprolol Succinate [Toprol XL] 50 mg PO BID tab 01/18/21 Rx hydrALAZINE [Apresoline] 100 mg PO TID #0 tab 01/18/21 Rx Allergies: No Known Allergies Allergy (Verified 11/23/20 17:39) Activity:: Activity as Tolerated Nourishment:: Diabetic Diet, Supplemental Diet (1 can of nephro twice daily) Therapies:: Other (Continue outpatient hemodialysis) Equipment/Supplies:: Not Applicable IV Therapy:: Not Applicable Referrals: [facility] PH[facility]IAN,OUT OF [Primary Care Provider] - 7 Days Disposition: SHELTER/ASSISTED LIVING Quality CORE MEASURES:: N/A
[2021-01-18] MEDS ORDERED: Nortriptyline 10 MG CAP ONE (15:48)
[2021-01-18] MEDS: HumaLOG 300 UNITS/3 ML VIAL SC PRN (15:52)
[2021-01-18 21:28] VITALS: BP 172/80; TEMP 98.5
--- NOTE | 2021-01-18 22:11 | EKG ---
Test Reason : Blood Pressure : / mmHG Vent. Rate : 061 BPM Atrial Rate : 061 BPM P-R Int : 106 ms QRS Dur : 088 ms QT Int : 458 ms P-R-T Axes : 053 081 060 degrees QTc Int : 461 ms Sinus rhythm with short PA Otherwise normal ECG When compared with ECG of 14-JAN-2021 02:06, No significant change was found Confirmed by Candis LO ([id number]) on 01/18/2021 10:10:58 PM Referred By: OMAR Confirmed By:Candis LO
--- NOTE | 2021-01-20 04:21 | PQF ---
Dear : Ish Spear Date 01/20/2021 Please exercise your independent, professional judgment in responding to the clarification form. Clinical indicators are provided on the bottom of this form for your review Can you please further clarify if Gastroenteritis is ruled in or ruled out? Gastroenteritis [ X ] Ruled in diagnosis [ ] Continue to treat [ X ] Resolved [ ] Ruled out diagnosis [ ] Improving [ ] Cannot rule out diagnosis [ ] Other diagnosis, please specify [ ] Unable to determine Physician Signature: Date/Time: For continuity of documentation, please document condition throughout progress notes and discharge summary. Thank You. To be completed by CDI/Coding staff for physician review: Present Clinical Indicators - Signs / Symptoms / Labs Results and Location in Medical Record [ x ] Presented with nausea and vomiting H and P pg.1 [ x ] gastroenteritis H and P pg.5 [ x ] Has diarrhea, n/v and abdominal pain H and P pg.5 [ x ] Possible gastroenteritis/ having missed dialysis with uremia H and P pg.5 [ x ] Generalized abdominal pain Hospitalist PN pg.5 01/15 [ x ] Stool lactoferrin is negative congestion against GI infection Hospitalist PN pg.6 01/15 [ x ] The patient does not have any diarrhea Hospitalist PN pg.6 01/16 [ x ] Current stool is negative for C. difficile antibody Hospitalist PN pg.6 01/16 [ x ] Positive for antigen indicating C diff carrier state but not colitis Hospitalist PN pg.6 01/16 Present Risk Factors Results and Location in Medical Record [ x ] GERD H and P pg.1 [ x ] Hx of C. 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
== END 2021-01-18 21:25 | DRG 280 ==
LOC: ERS 01:55 → ERHOLD 04:51 → 2NO 17:33 → OBSVTOIN 01-17 12:46
PROVIDERS: ADMIT Student in an Organized Health Care Education/Training Program; ATTEND Emergency Medicine
PROC: 5A1D70Z Performance of Urinary Filtration, Intermittent, Less than 6 Hours Per Day (ICD-10-PCS; principal; 2021-01-17)
DX: I16.0 Hypertensive urgency (principal); N18.6 End stage renal disease; I21.A1 Myocardial infarction type 2; E43 Unspecified severe protein-calorie malnutrition; E87.1 Hypo-osmolality and hyponatremia; Z68.1 Body mass index [BMI] 19.9 or less, adult; K52.9 Noninfective gastroenteritis and colitis, unspecified; I13.2 Hypertensive heart and chronic kidney disease with heart failure and with stage 5 chronic kidney disease, or end stage renal disease; E87.70 Fluid overload, unspecified; Z20.822 Contact with and (suspected) exposure to COVID-19; I25.10 Atherosclerotic heart disease of native coronary artery without angina pectoris; E78.5 Hyperlipidemia, unspecified; D63.1 Anemia in chronic kidney disease; I50.9 Heart failure, unspecified; F41.9 Anxiety disorder, unspecified; E10.42 Type 1 diabetes mellitus with diabetic polyneuropathy; F32.9 Major depressive disorder, single episode, unspecified; E87.5 Hyperkalemia; E10.22 Type 1 diabetes mellitus with diabetic chronic kidney disease; H54.7 Unspecified visual loss; Z99.2 Dependence on renal dialysis; Z79.899 Other long term (current) drug therapy; Z79.4 Long term (current) use of insulin; Z91.15 Patient's noncompliance with renal dialysis
CPT/HCPCS: 36415; 36416; 71045; 74176; 78452; 80048; 80053; 80061; 82010; 82274; 82330; 82553; 82803; 83630; 83690; 84100; 84484; 85025; 87040; 87324; 87449; 87635; 90935; 93005; 93010; 93017; 96374; 96375; 96376; A9500; G0257; G0378; J0360; J0696; J1170; J1644; J1815; J2060; J2405; J2785; J3490; Q0162; Q5105; U0003; U0005

== ENCOUNTER 2021-02-04 12:32 | Emergency (ER) | payer OTHER ==
[2021-02-04] MEDS ORDERED: hydrALAZINE 20 MG/ML VIAL ONE (13:15)
[2021-02-04 14:06] LABS: #Basophils 0.1 thou/uL (0.0-0.2); #Eosinphils 0.8 thou/uL (0.0-0.7); #Lymphocytes 1.3 thou/uL (1.20-3.40); #Monocytes 0.2 thou/uL (0.11-0.59); #Neutrophils 5.1 thou/uL (1.40-6.50); %Basophils 0.9 % (0.0-1.0); %Eosinophils 10.3 % (0.0-10.0); %Lymphocytes 16.8 % (21.0-51.0); Hemoglobin 9.5 g/dL (12.0-16.0); Mean Corpuscular HGB CONC 33.4 g/dL (32.0-36.0); Mean Corpuscular Hemoglobin 30.9 pg (27.0-31.0); Mean Corpuscular Volume 92.7 fL (78.0-98.0); Mean Platelet Volume 8.4 fL (7.4-10.4); Platelet Count 155 thou/uL (130-400); RBC Distribution Width 14.1 % (11.5-14.5); Red Blood Cell (RBC) Count 3.06 mill/uL (4.20-5.40); White Blood Cell (WBC) Count 7.4 thou/uL (4.8-10.8)
[2021-02-04 14:21] LABS: ALT (SGPT) 19 U/L (8-55); AST (SGOT) 19 U/L (5-34); Albumin 4.4 g/dL (3.5-5.0); Alkaline Phosphatase 418 U/L (40-110); Anion Gap 21 mmol/L (10-20); BUN (Urea Nitrogen) 31 mg/dL (7.0-18.7); Bilirubin, Total 0.7 mg/dL (0.2-1.2); Calc. Creatinine Clearance 0 mL/min (70-130); Calcium 9.7 mg/dL (7.8-10.44); Carbon Dioxide 29 mmol/L (22-29); Chloride 94 mmol/L (98-107); Globulin 3.3 g/dL (2.4-3.5); Glucose 200 mg/dL (70-105); Potassium 4.5 mmol/L (3.5-5.1); Protein, Total 7.7 g/dL (6.0-8.3); Sodium 139 mmol/L (136-145)
[2021-02-04 14:43] LABS: CKMB 1.9 ng/mL (0-6.6)
[2021-02-04] MEDS ORDERED: Acetaminophen 500 MG TAB ONE (15:22)
== END 2021-02-04 18:07 ==
LOC: ERS 12:32
DX: I12.0 Hypertensive chronic kidney disease with stage 5 chronic kidney disease or end stage renal disease (principal); N18.6 End stage renal disease; R51.9 Headache, unspecified; E10.22 Type 1 diabetes mellitus with diabetic chronic kidney disease; Z99.2 Dependence on renal dialysis; I25.10 Atherosclerotic heart disease of native coronary artery without angina pectoris; E10.40 Type 1 diabetes mellitus with diabetic neuropathy, unspecified; E10.43 Type 1 diabetes mellitus with diabetic autonomic (poly)neuropathy; K31.84 Gastroparesis; G47.00 Insomnia, unspecified; D64.9 Anemia, unspecified; K21.9 Gastro-esophageal reflux disease without esophagitis; E78.6 Lipoprotein deficiency; N25.81 Secondary hyperparathyroidism of renal origin; Z79.899 Other long term (current) drug therapy; Z79.4 Long term (current) use of insulin
CPT/HCPCS: 70450; 71045; 80053; 82553; 84484; 85025; 93005; 96374; J0360

== ENCOUNTER 2021-03-09 13:06 | Emergency (ER) | payer OTHER ==
[2021-03-09] MEDS ORDERED: Loperamide HCl 2 MG CAP ONE (15:18)
== END 2021-03-09 15:11 ==
LOC: ERS 13:06
DX: E10.22 Type 1 diabetes mellitus with diabetic chronic kidney disease (principal); N18.6 End stage renal disease; R45.1 Restlessness and agitation; I25.10 Atherosclerotic heart disease of native coronary artery without angina pectoris; E10.40 Type 1 diabetes mellitus with diabetic neuropathy, unspecified; I12.0 Hypertensive chronic kidney disease with stage 5 chronic kidney disease or end stage renal disease; K21.9 Gastro-esophageal reflux disease without esophagitis; Z79.899 Other long term (current) drug therapy; Z79.4 Long term (current) use of insulin
CPT/HCPCS: 99284

== ENCOUNTER 2021-03-15 16:31 | Inpatient (IN) | payer OTHER ==
[2021-03-15] MEDS ORDERED: Acetaminophen 500 MG TAB ONE (17:32)
[2021-03-15 18:09] LABS: Mean Corpuscular HGB CONC 34.4 g/dL (32.0-36.0); Mean Corpuscular Hemoglobin 31.1 pg (27.0-31.0); Mean Corpuscular Volume 90.5 fL (78.0-98.0); Red Blood Cell (RBC) Count 2.26 mill/uL (4.20-5.40); White Blood Cell (WBC) Count 7.1 thou/uL (4.8-10.8)
[2021-03-15 18:12] LABS: #Eosinphils 0.7 thou/uL (0.0-0.7); #Lymphocytes 1.4 thou/uL (1.20-3.40); #Monocytes 0.5 thou/uL (0.11-0.59); #Neutrophils 4.5 thou/uL (1.40-6.50); %Basophils 0.6 % (0.0-1.0); %Eosinophils 9.7 % (0.0-10.0); %Lymphocytes 19.7 % (21.0-51.0); %Monocytes 6.3 % (0.0-10.0); %Neutrophils 63.6 % (42.0-75.0); Mean Platelet Volume 8.2 fL (7.4-10.4); Platelet Count 112 thou/uL (130-400)
[2021-03-15 18:30] LABS: ALT (SGPT) 10 U/L (8-55); AST (SGOT) 23 U/L (5-34); Albumin 3.5 g/dL (3.5-5.0); Alkaline Phosphatase 307 U/L (40-110); Anion Gap 21 mmol/L (10-20); BUN (Urea Nitrogen) 78 mg/dL (7.0-18.7); Bilirubin, Total 0.7 mg/dL (0.2-1.2); Calc. Creatinine Clearance 0 mL/min (70-130); Calcium 8.4 mg/dL (7.8-10.44); Carbon Dioxide 24 mmol/L (22-29); Chloride 97 mmol/L (98-107); Globulin 2.7 g/dL (2.4-3.5); Glucose 397 mg/dL (70-105); Magnesium 2.3 mg/dL (1.6-2.6); Potassium 6.5 mmol/L (3.5-5.1); Protein, Total 6.2 g/dL (6.0-8.3); Sodium 135 mmol/L (136-145)
[2021-03-15] MEDS ORDERED: Atropine Sulfate 1 mg/10 ml Syringe ONE (18:59)
[2021-03-15] MEDS ORDERED: EPINEPHrine 1 MG/10 ML Abboject SYRINGE ONE (18:59)
[2021-03-15] MEDS ORDERED: Insulin Regular 300 UNITS/3 ML VIAL ONE (19:07)
[2021-03-15] MEDS ORDERED: Calcium Chloride 1 GM/10 ML Abboject SYRINGE ONE (19:07)
[2021-03-15] MEDS ORDERED: Sodium Bicarb 50 MEQ/50 ML Abboject 8.4% SYRINGE ONE (19:07)
[2021-03-15] MEDS ORDERED: HumaLOG 300 UNITS/3 ML VIAL SC PRN (20:25)
[2021-03-15] MEDS ORDERED: Dextrose 50% Abboject 50 ML SYRINGE SLOW IVP PRN (20:25)
[2021-03-15] MEDS ORDERED: Dextrose 5% in Water 1,000 ML IV PRN (20:25)
[2021-03-15] MEDS ORDERED: HYDROcodone/Acetaminophen 5/325 mg Tablet PO PRN (20:25)
[2021-03-15] MEDS ORDERED: Acetaminophen 325 MG TAB PO PRN (20:25)
[2021-03-15 21:34] LABS: SARS-CoV-2 NAA Rapid Test Not Detected (NotDetected)
[2021-03-16 00:29] LABS: HBSAg Index 0.24 S/CO (0-0.99); Hep B Surf Ag Non-Reactive S/CO (NonReactive)
[2021-03-16] MEDS ORDERED: Mag-Al 1200 mg/1200 mg/30 ML UDCUP PO PRN (00:33)
[2021-03-16] MEDS ORDERED: FERRIC CITRATE 210 MG PO PRN (00:51)
[2021-03-16] MEDS: hydrALAZINE 20 MG/ML VIAL SLOW IVP PRN ×2 (02:03→10:35)
[2021-03-16 05:52] LABS: #Eosinphils 0.6 thou/uL (0.0-0.7); #Lymphocytes 1.2 thou/uL (1.20-3.40); #Monocytes 0.3 thou/uL (0.11-0.59); #Neutrophils 3.7 thou/uL (1.40-6.50); %Basophils 0.3 % (0.0-1.0); %Eosinophils 9.5 % (0.0-10.0); %Lymphocytes 20.7 % (21.0-51.0); %Monocytes 4.8 % (0.0-10.0); %Neutrophils 64.6 % (42.0-75.0); Anion Gap 17 mmol/L (10-20); BUN (Urea Nitrogen) 31 mg/dL (7.0-18.7); Calc. Creatinine Clearance 11 mL/min (70-130); Calcium 8.9 mg/dL (7.8-10.44); Carbon Dioxide 28 mmol/L (22-29); Chloride 99 mmol/L (98-107); Glucose 310 mg/dL (70-105); Hemoglobin 6.6 g/dL (12.0-16.0); Mean Corpuscular HGB CONC 33.7 g/dL (32.0-36.0); Mean Corpuscular Hemoglobin 30.4 pg (27.0-31.0); Mean Corpuscular Volume 90.2 fL (78.0-98.0); Mean Platelet Volume 8.8 fL (7.4-10.4); Platelet Count 118 thou/uL (130-400); Potassium 4.1 mmol/L (3.5-5.1); Red Blood Cell (RBC) Count 2.17 mill/uL (4.20-5.40); Sodium 140 mmol/L (136-145); White Blood Cell (WBC) Count 5.8 thou/uL (4.8-10.8)
[2021-03-16] MEDS: Dorzolamide HCl 2% Ophth Soln 10 ml Bottle L EYE SCH ×3 (08:23→21:16)
[2021-03-16] MEDS: Brimonidine Tartrate 0.2% Ophth Soln 5 ml Bottle L EYE SCH ×3 (08:23→21:15)
[2021-03-16] MEDS: Sevelamer Carbonate 800 MG TAB PO SCH ×3 (08:23→18:23)
[2021-03-16] MEDS: Calcium Acetate 667 MG CAP PO SCH ×3 (08:24→21:14)
[2021-03-16] MEDS: hydrALAZINE 25 MG TAB PO SCH ×4 (08:25→21:14)
[2021-03-16] MEDS: Lantus 1000 UNITS/10 ML VIAL SC SCH (08:25)
[2021-03-16] MEDS: levETIRAcetam 500 MG TAB PO SCH ×2 (08:26→21:13)
[2021-03-16] MEDS ORDERED: Amlodipine 10 MG TAB PO SCH (09:00)
[2021-03-16] MEDS ORDERED: EPOETIN ALFA-EPBX (ESRD) 4,000 UNIT/ML VIAL SC SCH (09:15)
[2021-03-16] MEDS: NIFEdipine XL 60 MG TAB PO SCH (09:43)
[2021-03-16] MEDS: Atropine Sulfate 1% Ophth Soln 5 ml Bottle L EYE SCH ×2 (09:49→21:16)
[2021-03-16 11:24] VITALS: BMI 18.1
[2021-03-16] MEDS ORDERED: Sevelamer Carbonate 800 MG TAB PO SCH (18:30)
[2021-03-16] MEDS: Melatonin 3 MG TAB PO SCH (21:14)
[2021-03-17] MEDS: Acetaminophen/Codeine 30-300mg Tablet PO PRN ×3 (03:43→21:25)
[2021-03-17] MEDS: Ondansetron PF 4 MG/2 ML Vial IVP PRN ×2 (04:57→21:26)
[2021-03-17] MEDS: hydrALAZINE 20 MG/ML VIAL SLOW IVP PRN ×2 (05:54→09:36)
[2021-03-17] MEDS: hydrALAZINE 25 MG TAB PO SCH ×3 (08:36→20:21)
[2021-03-17] MEDS: Sevelamer Carbonate 800 MG TAB PO SCH ×3 (08:36→17:08)
[2021-03-17] MEDS: Calcium Acetate 667 MG CAP PO SCH ×3 (08:37→20:20)
[2021-03-17] MEDS: levETIRAcetam 500 MG TAB PO SCH ×2 (08:37→20:20)
[2021-03-17] MEDS: NIFEdipine XL 60 MG TAB PO SCH (08:37)
[2021-03-17] MEDS: Dorzolamide HCl 2% Ophth Soln 10 ml Bottle L EYE SCH ×3 (08:38→20:23)
[2021-03-17] MEDS: Brimonidine Tartrate 0.2% Ophth Soln 5 ml Bottle L EYE SCH ×3 (08:38→20:23)
[2021-03-17] MEDS: Atropine Sulfate 1% Ophth Soln 5 ml Bottle L EYE SCH ×2 (08:38→20:22)
[2021-03-17] MEDS: Lantus 1000 UNITS/10 ML VIAL SC SCH (08:44)
[2021-03-17 09:07] LABS: #Basophils 0.1 thou/uL (0.0-0.2); #Eosinphils 0.9 thou/uL (0.0-0.7); #Lymphocytes 1.8 thou/uL (1.20-3.40); #Monocytes 0.5 thou/uL (0.11-0.59); #Neutrophils 4.3 thou/uL (1.40-6.50); %Basophils 0.8 % (0.0-1.0); %Eosinophils 11.8 % (0.0-10.0); %Lymphocytes 24.1 % (21.0-51.0); %Monocytes 6.8 % (0.0-10.0); %Neutrophils 56.5 % (42.0-75.0); Mean Corpuscular HGB CONC 33.1 g/dL (32.0-36.0); Mean Corpuscular Volume 90.5 fL (78.0-98.0); Mean Platelet Volume 8.6 fL (7.4-10.4); Platelet Count 119 thou/uL (130-400); RBC Distribution Width 13.4 % (11.5-14.5); Red Blood Cell (RBC) Count 3.68 mill/uL (4.20-5.40); White Blood Cell (WBC) Count 7.6 thou/uL (4.8-10.8)
[2021-03-17 09:16] LABS: Anion Gap 14 mmol/L (10-20); BUN (Urea Nitrogen) 27 mg/dL (7.0-18.7); Calc. Creatinine Clearance 15 mL/min (70-130); Calcium 8.8 mg/dL (7.8-10.44); Carbon Dioxide 31 mmol/L (22-29); Chloride 100 mmol/L (98-107); Glucose 97 mg/dL (70-105); Potassium 4.6 mmol/L (3.5-5.1); Sodium 140 mmol/L (136-145)
[2021-03-17] MEDS ORDERED: Minoxidil 2.5 MG TAB PO SCH (13:00)
[2021-03-17] MEDS: Melatonin 3 MG TAB PO SCH (20:21)
[2021-03-18 07:58] LABS: #Basophils 0.1 thou/uL (0.0-0.2); #Eosinphils 0.9 thou/uL (0.0-0.7); #Lymphocytes 1.4 thou/uL (1.20-3.40); #Monocytes 0.4 thou/uL (0.11-0.59); #Neutrophils 5.6 thou/uL (1.40-6.50); %Basophils 0.9 % (0.0-1.0); %Eosinophils 10.5 % (0.0-10.0); %Lymphocytes 16.4 % (21.0-51.0); %Monocytes 4.6 % (0.0-10.0); %Neutrophils 67.6 % (42.0-75.0); Hemoglobin 11.1 g/dL (12.0-16.0); Mean Corpuscular HGB CONC 33.2 g/dL (32.0-36.0); Mean Corpuscular Hemoglobin 30.1 pg (27.0-31.0); Mean Corpuscular Volume 90.5 fL (78.0-98.0); Platelet Count 138 thou/uL (130-400); RBC Distribution Width 13.2 % (11.5-14.5); Red Blood Cell (RBC) Count 3.68 mill/uL (4.20-5.40); White Blood Cell (WBC) Count 8.2 thou/uL (4.8-10.8)
[2021-03-18] MEDS: Brimonidine Tartrate 0.2% Ophth Soln 5 ml Bottle L EYE SCH ×3 (08:15→21:27)
[2021-03-18] MEDS: Atropine Sulfate 1% Ophth Soln 5 ml Bottle L EYE SCH ×2 (08:15→21:27)
[2021-03-18] MEDS: Dorzolamide HCl 2% Ophth Soln 10 ml Bottle L EYE SCH ×3 (08:16→21:27)
[2021-03-18 08:17] LABS: Anion Gap 18 mmol/L (10-20); BUN (Urea Nitrogen) 39 mg/dL (7.0-18.7); Calc. Creatinine Clearance 0 mL/min (70-130); Calcium 9.3 mg/dL (7.8-10.44); Carbon Dioxide 32 mmol/L (22-29); Chloride 93 mmol/L (98-107); Glucose 264 mg/dL (70-105); Potassium 4.8 mmol/L (3.5-5.1); Sodium 138 mmol/L (136-145)
[2021-03-18] MEDS: Ondansetron PF 4 MG/2 ML Vial IVP PRN (08:23)
[2021-03-18] MEDS ORDERED: Minoxidil 2.5 MG TAB PO SCH (09:00)
[2021-03-18] MEDS: hydrALAZINE 25 MG TAB PO SCH ×3 (09:41→21:26)
[2021-03-18] MEDS: Sevelamer Carbonate 800 MG TAB PO SCH ×4 (09:41→18:17)
[2021-03-18] MEDS: Amlodipine 5 MG TAB PO SCH ×2 (09:41→21:26)
[2021-03-18] MEDS: NIFEdipine XL 60 MG TAB PO SCH (09:42)
[2021-03-18] MEDS: Minoxidil 2.5 MG TAB PO SCH ×2 (09:42→21:34)
[2021-03-18] MEDS: Calcium Acetate 667 MG CAP PO SCH ×3 (13:34→21:27)
[2021-03-18] MEDS: levETIRAcetam 500 MG TAB PO SCH ×2 (13:34→21:27)
[2021-03-18] MEDS: Lantus 1000 UNITS/10 ML VIAL SC SCH (13:42)
[2021-03-18 14:30] LABS: #Eosinphils 0.8 thou/uL (0.0-0.7); #Lymphocytes 1.3 thou/uL (1.20-3.40); #Monocytes 0.6 thou/uL (0.11-0.59); #Neutrophils 5.7 thou/uL (1.40-6.50); %Basophils 0.5 % (0.0-1.0); %Eosinophils 9.5 % (0.0-10.0); %Lymphocytes 15.2 % (21.0-51.0); %Monocytes 6.7 % (0.0-10.0); %Neutrophils 68.1 % (42.0-75.0); Hemoglobin 11.6 g/dL (12.0-16.0); Mean Corpuscular Hemoglobin 30.8 pg (27.0-31.0); Mean Corpuscular Volume 90.5 fL (78.0-98.0); Platelet Count 125 thou/uL (130-400); RBC Distribution Width 13.2 % (11.5-14.5); Red Blood Cell (RBC) Count 3.78 mill/uL (4.20-5.40); White Blood Cell (WBC) Count 8.3 thou/uL (4.8-10.8)
[2021-03-18] MEDS: Heparin 5,000 UNITS/ML VIAL SC SCH (21:28)
[2021-03-18] MEDS: Melatonin 3 MG TAB PO SCH (21:34)
[2021-03-19 06:42] LABS: Anion Gap 21 mmol/L (10-20); BUN (Urea Nitrogen) 18 mg/dL (7.0-18.7); Calc. Creatinine Clearance 15 mL/min (70-130); Calcium 10.1 mg/dL (7.8-10.44); Carbon Dioxide 22 mmol/L (22-29); Chloride 97 mmol/L (98-107); Glucose 145 mg/dL (70-105); Sodium 136 mmol/L (136-145)
[2021-03-19] MEDS: Amlodipine 5 MG TAB PO SCH (08:33)
[2021-03-19] MEDS: Brimonidine Tartrate 0.2% Ophth Soln 5 ml Bottle L EYE SCH ×2 (08:34→16:32)
[2021-03-19] MEDS: Atropine Sulfate 1% Ophth Soln 5 ml Bottle L EYE SCH (08:34)
[2021-03-19] MEDS: Calcium Acetate 667 MG CAP PO SCH ×2 (08:34→16:32)
[2021-03-19] MEDS: levETIRAcetam 500 MG TAB PO SCH (08:35)
[2021-03-19] MEDS: Heparin 5,000 UNITS/ML VIAL SC SCH (08:35)
[2021-03-19] MEDS: Dorzolamide HCl 2% Ophth Soln 10 ml Bottle L EYE SCH ×2 (08:35→16:32)
[2021-03-19] MEDS: NIFEdipine XL 60 MG TAB PO SCH (08:35)
[2021-03-19] MEDS: hydrALAZINE 25 MG TAB PO SCH ×2 (08:35→16:32)
[2021-03-19] MEDS: Sevelamer Carbonate 800 MG TAB PO SCH ×3 (08:36→17:59)
[2021-03-19] MEDS: Minoxidil 2.5 MG TAB PO SCH (08:36)
[2021-03-19] MEDS: Lantus 1000 UNITS/10 ML VIAL SC SCH (08:37)
[2021-03-19 16:00] VITALS: TEMP 98.5
[2021-03-19 18:06] VITALS: BP 101/57
[2021-03-19] MEDS: PATIROMER CALCIUM SORBITEX PO SCH (19:12)
== END 2021-03-19 19:10 | DRG 640 ==
LOC: ERS 16:31 → CCU 19:59 → T4-B 03-16 18:12
PROVIDERS: ADMIT Family Medicine; ATTEND Family Medicine
PROC: 5A1D70Z Performance of Urinary Filtration, Intermittent, Less than 6 Hours Per Day (ICD-10-PCS; principal; 2021-03-15)
PROC: 30233N1 Transfusion of Nonautologous Red Blood Cells into Peripheral Vein, Percutaneous Approach (ICD-10-PCS; 2021-03-16)
DX: E87.5 Hyperkalemia (principal); N18.6 End stage renal disease; I12.0 Hypertensive chronic kidney disease with stage 5 chronic kidney disease or end stage renal disease; Z68.1 Body mass index [BMI] 19.9 or less, adult; N25.81 Secondary hyperparathyroidism of renal origin; Z20.822 Contact with and (suspected) exposure to COVID-19; E87.70 Fluid overload, unspecified; I25.10 Atherosclerotic heart disease of native coronary artery without angina pectoris; D63.1 Anemia in chronic kidney disease; K21.9 Gastro-esophageal reflux disease without esophagitis; H54.8 Legal blindness, as defined in USA; I16.0 Hypertensive urgency; F32.9 Major depressive disorder, single episode, unspecified; R00.1 Bradycardia, unspecified; E11.42 Type 2 diabetes mellitus with diabetic polyneuropathy; K31.84 Gastroparesis; E11.22 Type 2 diabetes mellitus with diabetic chronic kidney disease; E11.51 Type 2 diabetes mellitus with diabetic peripheral angiopathy without gangrene; G40.909 Epilepsy, unspecified, not intractable, without status epilepticus; E11.43 Type 2 diabetes mellitus with diabetic autonomic (poly)neuropathy; R63.6 Underweight; Z79.899 Other long term (current) drug therapy; Z79.4 Long term (current) use of insulin; Z99.2 Dependence on renal dialysis; Z91.15 Patient's noncompliance with renal dialysis
CPT/HCPCS: 36415; 36416; 36430; 71045; 80048; 80053; 83735; 85025; 86850; 86900; 86901; 87340; 90935; 93005; 96374; 96375; G0257; J0171; J0360; J0461; J1815; J2405; P9016; Q5105; U0002

== ENCOUNTER 2021-03-23 10:18 | Observation (INO) | payer OTHER ==
[2021-03-23] MEDS ORDERED: Calcium Gluc 4.6 MEQ/10 ML (100 MG/ML) ONE (10:23)
[2021-03-23] MEDS ORDERED: Atropine Sulfate 1 mg/10 ml Syringe ONE (10:32)
[2021-03-23] MEDS ORDERED: Albuterol Sulfate 2.5 mg/0.5 ml Neb ONE (10:35)
[2021-03-23] MEDS ORDERED: Sodium Bicarb 50 MEQ/50 ML Abboject 8.4% SYRINGE ONE (10:40)
[2021-03-23] MEDS ORDERED: Insulin Regular 300 UNITS/3 ML VIAL ONE (10:40)
[2021-03-23 10:57] LABS: #Basophils 0.1 thou/uL (0.0-0.2); #Eosinphils 0.4 thou/uL (0.0-0.7); #Lymphocytes 1.2 thou/uL (1.20-3.40); #Monocytes 0.4 thou/uL (0.11-0.59); %Basophils 0.9 % (0.0-1.0); %Eosinophils 5.4 % (0.0-10.0); %Lymphocytes 17.3 % (21.0-51.0); %Monocytes 5.9 % (0.0-10.0); %Neutrophils 70.5 % (42.0-75.0); Hemoglobin 9.8 g/dL (12.0-16.0); Mean Corpuscular HGB CONC 32.7 g/dL (32.0-36.0); Mean Corpuscular Hemoglobin 29.6 pg (27.0-31.0); Mean Corpuscular Volume 90.7 fL (78.0-98.0); Mean Platelet Volume 8.4 fL (7.4-10.4); Platelet Count 107 thou/uL (130-400); RBC Distribution Width 13.1 % (11.5-14.5); Red Blood Cell (RBC) Count 3.31 mill/uL (4.20-5.40); White Blood Cell (WBC) Count 7.1 thou/uL (4.8-10.8)
[2021-03-23 11:03] LABS: Bacteria/HPF 4+ HPF (None Seen); Bilirubin Negative (Negative); Blood, Urine 3+ (Negative); Clarity Turbid (Clear); Glucose, Urine (Dipstick) 200 mg/dL (Negative); Ketone, Urine Negative (Negative); Leukocyte 500 Leu/uL (Negative); Nitrite Negative (Negative); Protein, Urine (Dipstick) 600 mg/dL (Neg-Trace); RBC/HPF Greater than 50 HPF (0-3); Specific Gravity, Urine 1.023 (1.002-1.036); Squamous Epithelial 0-3 HPF (0-3); Transitional Epithelial 0-3 HPF (None Seen); Urobilinogen Normal mg/dL (Less than 2); WBC/HPF Greater than 50 HPF (0-3); pH, Urine 7.5 (5.0-9.0)
[2021-03-23 11:10] LABS: ALT (SGPT) 19 U/L (8-55); AST (SGOT) 64 U/L (5-34); Albumin 3.7 g/dL (3.5-5.0); Alkaline Phosphatase 336 U/L (40-110); Anion Gap 23 mmol/L (10-20); BUN (Urea Nitrogen) 68 mg/dL (7.0-18.7); Bilirubin, Total 0.9 mg/dL (0.2-1.2); Calc. Creatinine Clearance 0 mL/min (70-130); Calcium 8.3 mg/dL (7.8-10.44); Carbon Dioxide 24 mmol/L (22-29); Chloride 94 mmol/L (98-107); Globulin 2.5 g/dL (2.4-3.5); Glucose 201 mg/dL (70-105); Potassium 6.4 mmol/L (3.5-5.1); Protein, Total 6.2 g/dL (6.0-8.3); Sodium 135 mmol/L (136-145)
[2021-03-23] MEDS ORDERED: Ondansetron ODT 4 MG TAB SL PRN (13:00)
[2021-03-23] MEDS ORDERED: Ondansetron PF 4 MG/2 ML Vial IVP PRN (13:00)
[2021-03-23] MEDS ORDERED: Acetaminophen 325 MG TAB PO PRN (13:00)
[2021-03-23 13:09] VITALS: BMI 19.1
[2021-03-23 13:13] VITALS: BP 130/63
[2021-03-23] MEDS ORDERED: Dextrose 5% in Water 1,000 ML IV PRN (16:08)
[2021-03-23] MEDS ORDERED: Dextrose 50% Abboject 50 ML SYRINGE SLOW IVP PRN (16:08)
[2021-03-23] MEDS: Cefepime 2 GM in Sodium Chloride 0.9% 100 ML IVPB SCH (18:23)
[2021-03-23] MEDS ORDERED: Vancomycin 1 GM in Premix Bag 1 BAG IVPB SCH (19:00)
[2021-03-23] MEDS ORDERED: Vancomycin HCl 1 GM in Sodium Chloride 0.9% 250 ML 250 ML IVPB SCH (19:00)
[2021-03-23] MEDS: Calcium Acetate 667 MG CAP PO SCH (20:18)
[2021-03-23] MEDS: Senokot S 8.6-50 MG TAB PO SCH (20:18)
[2021-03-23] MEDS: Heparin 5,000 UNITS/ML VIAL SC SCH (20:26)
[2021-03-24] MEDS ORDERED: Acetaminophen 325 MG TAB PO PRN (03:31)
[2021-03-24 04:23] LABS: Anion Gap 14 mmol/L (10-20); BUN (Urea Nitrogen) 23 mg/dL (7.0-18.7); Calc. Creatinine Clearance 13 mL/min (70-130); Carbon Dioxide 28 mmol/L (22-29); Chloride 98 mmol/L (98-107); Glucose 422 mg/dL (70-105); Potassium 4.3 mmol/L (3.5-5.1); Sodium 136 mmol/L (136-145)
[2021-03-24] MEDS: Cefepime 2 GM in Sodium Chloride 0.9% 100 ML IVPB SCH (06:13)
[2021-03-24] MEDS: Heparin 5,000 UNITS/ML VIAL SC SCH (08:42)
[2021-03-24] MEDS: Senokot S 8.6-50 MG TAB PO SCH ×2 (08:42→08:57)
[2021-03-24] MEDS: Calcium Acetate 667 MG CAP PO SCH ×2 (08:42→15:53)
[2021-03-24] MEDS ORDERED: Lantus 1000 UNITS/10 ML VIAL SC SCH (09:00)
[2021-03-24] MEDS ORDERED: EPOETIN ALFA-EPBX (ESRD) 4,000 UNIT/ML VIAL SC SCH (09:00)
[2021-03-24 16:38] VITALS: TEMP 98.8
[2021-03-25] MEDS ORDERED: Cefepime 0.5 GM, Admixture Fee 1 EACH in Sodium Chloride 0.9% 100 ML IVPB SCH (15:00)
== END 2021-03-24 16:20 ==
LOC: ERS 10:18 → INTOOBSV 11:52 → CCU 11:52
PROVIDERS: ADMIT Hospitalist; ATTEND Internal Medicine
DX: I95.9 Hypotension, unspecified (principal); E87.5 Hyperkalemia; R00.1 Bradycardia, unspecified; I12.0 Hypertensive chronic kidney disease with stage 5 chronic kidney disease or end stage renal disease; E10.22 Type 1 diabetes mellitus with diabetic chronic kidney disease; N18.6 End stage renal disease; D63.1 Anemia in chronic kidney disease; N25.81 Secondary hyperparathyroidism of renal origin; H54.8 Legal blindness, as defined in USA; K59.00 Constipation, unspecified; I48.91 Unspecified atrial fibrillation; E10.40 Type 1 diabetes mellitus with diabetic neuropathy, unspecified; I25.10 Atherosclerotic heart disease of native coronary artery without angina pectoris; E10.43 Type 1 diabetes mellitus with diabetic autonomic (poly)neuropathy; K31.84 Gastroparesis; K21.9 Gastro-esophageal reflux disease without esophagitis; E43 Unspecified severe protein-calorie malnutrition; Z68.1 Body mass index [BMI] 19.9 or less, adult; Z51.5 Encounter for palliative care; Z79.899 Other long term (current) drug therapy; Z90.01 Acquired absence of eye; Z99.2 Dependence on renal dialysis; Z99.3 Dependence on wheelchair; Z91.11 Patient's noncompliance with dietary regimen; Z91.14 Patient's other noncompliance with medication regimen; Z91.15 Patient's noncompliance with renal dialysis
CPT/HCPCS: 36415; 36416; 51701; 71045; 80048; 80053; 81003; 81015; 82533; 84484; 85025; 87040; 90935; 93005; 94640; 94760; 96365; 96375; G0257; J0461; J0692; J1815; J2001; J3370; J3490; J7611; Q5105

== ENCOUNTER 2021-03-25 19:34 | Observation (INO) | payer OTHER ==
[2021-03-25 20:43] LABS: #Eosinphils 0.6 thou/uL (0.0-0.7); #Lymphocytes 1.3 thou/uL (1.20-3.40); #Monocytes 0.3 thou/uL (0.11-0.59); #Neutrophils 3.1 thou/uL (1.40-6.50); %Basophils 0.9 % (0.0-1.0); %Eosinophils 11.8 % (0.0-10.0); %Lymphocytes 24.3 % (21.0-51.0); %Monocytes 6.1 % (0.0-10.0); Hemoglobin 9.9 g/dL (12.0-16.0); Mean Corpuscular HGB CONC 33.2 g/dL (32.0-36.0); Mean Corpuscular Hemoglobin 30.7 pg (27.0-31.0); Mean Corpuscular Volume 92.3 fL (78.0-98.0); Platelet Count 95 thou/uL (130-400); RBC Distribution Width 13.1 % (11.5-14.5); Red Blood Cell (RBC) Count 3.21 mill/uL (4.20-5.40); White Blood Cell (WBC) Count 5.5 thou/uL (4.8-10.8)
[2021-03-25 21:02] LABS: ALT (SGPT) 14 U/L (8-55); AST (SGOT) 21 U/L (5-34); Albumin 3.4 g/dL (3.5-5.0); Alkaline Phosphatase 304 U/L (40-110); Anion Gap 18 mmol/L (10-20); BUN (Urea Nitrogen) 46 mg/dL (7.0-18.7); Bilirubin, Total 0.6 mg/dL (0.2-1.2); Calc. Creatinine Clearance 0 mL/min (70-130); Carbon Dioxide 26 mmol/L (22-29); Chloride 99 mmol/L (98-107); Globulin 3.2 g/dL (2.4-3.5); Glucose 199 mg/dL (70-105); Potassium 5.5 mmol/L (3.5-5.1); Protein, Total 6.6 g/dL (6.0-8.3); Sodium 137 mmol/L (136-145)
[2021-03-26] MEDS ORDERED: Acetaminophen 325 MG TAB PO PRN ×2 (00:51→06:53)
[2021-03-26] MEDS ORDERED: Ondansetron ODT 4 MG TAB PO PRN (00:51)
[2021-03-26] MEDS ORDERED: Ondansetron PF 4 MG/2 ML Vial IVP PRN (00:51)
[2021-03-26] MEDS ORDERED: HYDROmorphone 0.5 MG/0.5 ML SYRINGE SLOW IVP PRN ×2 (01:31→01:45)
[2021-03-26] MEDS ORDERED: Midodrine HCl 5 MG TAB PO SCH (02:00)
[2021-03-26] MEDS ORDERED: Dextrose 5% in Water 1,000 ML IV PRN (03:32)
[2021-03-26] MEDS ORDERED: Dextrose 50% Abboject 50 ML SYRINGE SLOW IVP PRN (03:32)
[2021-03-26] MEDS ORDERED: HumaLOG 300 UNITS/3 ML VIAL SC PRN (03:32)
[2021-03-26 04:41] VITALS: BMI 19.6
[2021-03-26 04:44] LABS: #Eosinphils 0.9 thou/uL (0.0-0.7); #Lymphocytes 1.2 thou/uL (1.20-3.40); #Monocytes 0.3 thou/uL (0.11-0.59); #Neutrophils 2.7 thou/uL (1.40-6.50); %Basophils 0.8 % (0.0-1.0); %Eosinophils 17.9 % (0.0-10.0); %Lymphocytes 23.7 % (21.0-51.0); %Monocytes 5.3 % (0.0-10.0); %Neutrophils 52.2 % (42.0-75.0); Hemoglobin 9.8 g/dL (12.0-16.0); Mean Corpuscular HGB CONC 31.6 g/dL (32.0-36.0); Mean Corpuscular Hemoglobin 29.3 pg (27.0-31.0); Mean Corpuscular Volume 92.5 fL (78.0-98.0); Mean Platelet Volume 9.4 fL (7.4-10.4); Platelet Count 78 thou/uL (130-400); RBC Distribution Width 13.1 % (11.5-14.5); Red Blood Cell (RBC) Count 3.33 mill/uL (4.20-5.40); White Blood Cell (WBC) Count 5.2 thou/uL (4.8-10.8)
[2021-03-26] MEDS ORDERED: Non-Formulary Item 1 EACH (Ferric Citrate [Auryxia] 210 MG Tablet) PO PRN (06:53)
[2021-03-26] MEDS ORDERED: Acetaminophen/Codeine 30-300mg Tablet PO PRN (06:53)
[2021-03-26 07:02] LABS: Anion Gap 19 mmol/L (10-20); BUN (Urea Nitrogen) 49 mg/dL (7.0-18.7); Calc. Creatinine Clearance 9 mL/min (70-130); Calcium 8.7 mg/dL (7.8-10.44); Carbon Dioxide 22 mmol/L (22-29); Chloride 101 mmol/L (98-107); Glucose 333 mg/dL (70-105); Potassium 5.7 mmol/L (3.5-5.1); Sodium 136 mmol/L (136-145)
[2021-03-26] MEDS ORDERED: Ferric Citrate [Auryxia] 210 MG Tablet PO PRN (07:13)
[2021-03-26] MEDS ORDERED: SEVELAMER CARBONATE PO SCH (08:00)
[2021-03-26] MEDS ORDERED: Non-Formulary Item 1 EACH (Sertraline Hcl [Zoloft] 50 MG Tablet) PO SCH (09:00)
[2021-03-26] MEDS ORDERED: Bisacodyl 10 MG SUPP PR SCH (09:00)
[2021-03-26] MEDS ORDERED: Non-Formulary Item 1 EACH (Brimonidine Tartrate [Brimonidine Tartrate 0.15% Ophth Soln] 1 L EYE SCH (09:00)
[2021-03-26] MEDS ORDERED: Non-Formulary Item 1 EACH (Dorzolamide Hcl/Pf [Dorzolamide 2% Eye Drop] 10 ML Drops) L EYE SCH (09:00)
[2021-03-26] MEDS ORDERED: [UNRECOGNIZED DRUG - OTHER] OP SCH (09:00)
[2021-03-26] MEDS ORDERED: TIMOLOL MALEATE OP SCH (09:00)
[2021-03-26] MEDS: Polyethylene Glycol 3350 17 GM Packet PO SCH ×2 (09:01→21:15)
[2021-03-26] MEDS: Sevelamer Carbonate 800 MG TAB PO SCH ×3 (09:01→16:47)
[2021-03-26 09:36] LABS: Syphilis Antibody Nonreactive (Nonreactive); Syphilis Antibody Index 0.16 S/CO (<1.00 Non-Reactive)
[2021-03-26] MEDS: Calcium Acetate 667 MG CAP PO SCH ×4 (12:36→21:14)
[2021-03-26] MEDS: levETIRAcetam 500 MG TAB PO SCH ×2 (12:36→21:15)
[2021-03-26] MEDS: Gabapentin 300 MG CAP PO SCH ×2 (12:36→21:14)
[2021-03-26] MEDS: Midodrine HCl 5 MG TAB PO SCH ×3 (12:37→21:15)
[2021-03-26] MEDS: Brimonidine Tartrate 0.2% Ophth Soln 5 ml Bottle L EYE SCH ×3 (12:38→21:14)
[2021-03-26] MEDS: Timolol 0.5% Ophth Soln 5 ml Bottle L EYE SCH ×3 (12:39→21:16)
[2021-03-26] MEDS: Dorzolamide HCl 2% Ophth Soln 10 ml Bottle L EYE SCH ×3 (12:40→21:14)
[2021-03-26] MEDS: Atropine Sulfate 1% Ophth Soln 5 ml Bottle L EYE SCH ×2 (12:41→21:14)
[2021-03-26] MEDS: Lantus 1000 UNITS/10 ML VIAL SC SCH (12:48)
[2021-03-26] MEDS ORDERED: Folic Acid 1 MG TAB PO SCH (16:00)
[2021-03-26] MEDS ORDERED: Non-Formulary Item 1 EACH (Melatonin [Melatonin] 10 MG Tablet) PO SCH (21:00)
[2021-03-26] MEDS: hydrALAZINE 25 MG TAB PO SCH (21:14)
[2021-03-26] MEDS: Minoxidil 2.5 MG TAB PO SCH (21:15)
[2021-03-26] MEDS: Melatonin 3 MG TAB PO SCH (21:15)
[2021-03-27] MEDS: Folic Acid 1 MG TAB PO SCH ×2 (07:50→12:25)
[2021-03-27] MEDS: Sevelamer Carbonate 800 MG TAB PO SCH ×3 (07:50→17:30)
[2021-03-27] MEDS: hydrALAZINE 25 MG TAB PO SCH ×4 (07:51→20:59)
[2021-03-27] MEDS: Gabapentin 300 MG CAP PO SCH ×3 (07:52→20:59)
[2021-03-27] MEDS: Calcium Acetate 667 MG CAP PO SCH ×4 (07:52→20:58)
[2021-03-27] MEDS: Amlodipine 10 MG TAB PO SCH ×2 (07:53→12:24)
[2021-03-27] MEDS: Midodrine HCl 5 MG TAB PO SCH (07:53)
[2021-03-27] MEDS: Minoxidil 2.5 MG TAB PO SCH ×4 (07:53→21:00)
[2021-03-27] MEDS: levETIRAcetam 500 MG TAB PO SCH ×3 (07:54→20:59)
[2021-03-27 08:00] LABS: Anion Gap 15 mmol/L (10-20); BUN (Urea Nitrogen) 23 mg/dL (7.0-18.7); Calc. Creatinine Clearance 15 mL/min (70-130); Calcium 8.9 mg/dL (7.8-10.44); Carbon Dioxide 25 mmol/L (22-29); Chloride 100 mmol/L (98-107); Glucose 217 mg/dL (70-105); Sodium 136 mmol/L (136-145)
[2021-03-27] MEDS ORDERED: Labetalol HCl 100 MG/20 ML VIAL SLOW IVP PRN (11:52)
[2021-03-27] MEDS: Brimonidine Tartrate 0.2% Ophth Soln 5 ml Bottle L EYE SCH ×3 (12:25→20:58)
[2021-03-27] MEDS: Atropine Sulfate 1% Ophth Soln 5 ml Bottle L EYE SCH ×2 (12:25→20:58)
[2021-03-27] MEDS: Dorzolamide HCl 2% Ophth Soln 10 ml Bottle L EYE SCH ×3 (12:25→20:59)
[2021-03-27] MEDS: Polyethylene Glycol 3350 17 GM Packet PO SCH ×2 (12:26→21:00)
[2021-03-27] MEDS: Lantus 1000 UNITS/10 ML VIAL SC SCH (12:26)
[2021-03-27] MEDS: Timolol 0.5% Ophth Soln 5 ml Bottle L EYE SCH ×3 (12:26→21:00)
[2021-03-27] MEDS ORDERED: Lisinopril 20 MG TAB PO SCH (12:30)
[2021-03-27] MEDS: Melatonin 3 MG TAB PO SCH (20:59)
[2021-03-28] MEDS ORDERED: Lorazepam 2 MG/ML VIAL SLOW IVP SCH (08:30)
[2021-03-28] MEDS ORDERED: hydrALAZINE 20 MG/ML VIAL SLOW IVP PRN (08:51)
[2021-03-28] MEDS ORDERED: NIFEdipine XL 60 MG TAB PO SCH (09:00)
[2021-03-28] MEDS ORDERED: Lisinopril 20 MG TAB PO SCH (09:00)
[2021-03-28 13:39] VITALS: BP 161/80; TEMP 98.3
[2021-03-28] MEDS: Sevelamer Carbonate 800 MG TAB PO SCH (13:45)
[2021-03-28] MEDS: Atropine Sulfate 1% Ophth Soln 5 ml Bottle L EYE SCH (13:45)
[2021-03-28] MEDS: Dorzolamide HCl 2% Ophth Soln 10 ml Bottle L EYE SCH ×2 (13:46→17:57)
[2021-03-28] MEDS: Folic Acid 1 MG TAB PO SCH (13:46)
[2021-03-28] MEDS: Gabapentin 300 MG CAP PO SCH (13:46)
[2021-03-28] MEDS: Lantus 1000 UNITS/10 ML VIAL SC SCH (13:46)
[2021-03-28] MEDS: Calcium Acetate 667 MG CAP PO SCH ×2 (13:46→17:56)
[2021-03-28] MEDS: hydrALAZINE 25 MG TAB PO SCH ×2 (13:46→17:57)
[2021-03-28] MEDS: Brimonidine Tartrate 0.2% Ophth Soln 5 ml Bottle L EYE SCH ×2 (13:46→17:56)
[2021-03-28] MEDS: levETIRAcetam 500 MG TAB PO SCH (13:47)
[2021-03-28] MEDS: Timolol 0.5% Ophth Soln 5 ml Bottle L EYE SCH ×2 (13:47→17:57)
[2021-03-28] MEDS: Minoxidil 2.5 MG TAB PO SCH (13:58)
[2021-03-28] MEDS: Polyethylene Glycol 3350 17 GM Packet PO SCH (13:58)
== END 2021-03-28 16:40 ==
LOC: ERS 19:34 → 2NO 03-26 00:41 → OBSVTOIN 03-28 14:37 → INTOOBSV 03-28 14:37
PROVIDERS: ADMIT Student in an Organized Health Care Education/Training Program; ATTEND Internal Medicine
PROC: 5A1D70Z Performance of Urinary Filtration, Intermittent, Less than 6 Hours Per Day (ICD-10-PCS; principal; 2021-03-26)
DX: E87.5 Hyperkalemia (principal); N18.6 End stage renal disease; I12.0 Hypertensive chronic kidney disease with stage 5 chronic kidney disease or end stage renal disease; E10.22 Type 1 diabetes mellitus with diabetic chronic kidney disease; D63.1 Anemia in chronic kidney disease; I25.10 Atherosclerotic heart disease of native coronary artery without angina pectoris; Z20.822 Contact with and (suspected) exposure to COVID-19; I95.9 Hypotension, unspecified; F32.9 Major depressive disorder, single episode, unspecified; H40.9 Unspecified glaucoma; E53.8 Deficiency of other specified B group vitamins; E87.70 Fluid overload, unspecified; G40.909 Epilepsy, unspecified, not intractable, without status epilepticus; H54.8 Legal blindness, as defined in USA; Z99.2 Dependence on renal dialysis; Z79.899 Other long term (current) drug therapy; Z79.4 Long term (current) use of insulin; Z98.51 Tubal ligation status; Z91.14 Patient's other noncompliance with medication regimen; Z91.11 Patient's noncompliance with dietary regimen; Z91.15 Patient's noncompliance with renal dialysis
CPT/HCPCS: 36415; 36416; 70450; 80048; 80053; 82140; 82274; 82607; 82746; 85025; 86780; 90935; 93005; G0257; G0378; J1815; J2060; Q0162

== ENCOUNTER 2021-04-18 11:08 | Emergency (ER) | payer OTHER ==
[2021-04-18 12:40] LABS: #Basophils 0.1 thou/uL (0.0-0.2); #Eosinphils 0.7 thou/uL (0.0-0.7); #Lymphocytes 1.5 thou/uL (1.20-3.40); #Monocytes 0.2 thou/uL (0.11-0.59); #Neutrophils 3.1 thou/uL (1.40-6.50); %Basophils 0.9 % (0.0-1.0); %Eosinophils 12.8 % (0.0-10.0); %Lymphocytes 26.1 % (21.0-51.0); %Monocytes 4.3 % (0.0-10.0); %Neutrophils 55.8 % (42.0-75.0); Hemoglobin 10.4 g/dL (12.0-16.0); Mean Corpuscular HGB CONC 34.6 g/dL (32.0-36.0); Mean Corpuscular Hemoglobin 31.8 pg (27.0-31.0); Mean Corpuscular Volume 91.7 fL (78.0-98.0); Mean Platelet Volume 8.7 fL (7.4-10.4); Platelet Count 95 thou/uL (130-400); RBC Distribution Width 13.2 % (11.5-14.5); Red Blood Cell (RBC) Count 3.27 mill/uL (4.20-5.40); White Blood Cell (WBC) Count 5.6 thou/uL (4.8-10.8)
[2021-04-18 13:01] LABS: ALT (SGPT) 7 U/L (8-55); AST (SGOT) 20 U/L (5-34); Albumin 3.4 g/dL (3.5-5.0); Alkaline Phosphatase 287 U/L (40-110); Anion Gap 13 mmol/L (10-20); BUN (Urea Nitrogen) 24 mg/dL (7.0-18.7); Bilirubin, Total 0.5 mg/dL (0.2-1.2); Calc. Creatinine Clearance 0 mL/min (70-130); Calcium 7.9 mg/dL (7.8-10.44); Carbon Dioxide 30 mmol/L (22-29); Chloride 98 mmol/L (98-107); Globulin 2.7 g/dL (2.4-3.5); Glucose 127 mg/dL (70-105); Potassium 4.4 mmol/L (3.5-5.1); Protein, Total 6.1 g/dL (6.0-8.3); Sodium 137 mmol/L (136-145)
== END 2021-04-18 20:34 ==
LOC: ERS 11:08
DX: I12.0 Hypertensive chronic kidney disease with stage 5 chronic kidney disease or end stage renal disease (principal); N18.6 End stage renal disease; E10.22 Type 1 diabetes mellitus with diabetic chronic kidney disease; Z99.2 Dependence on renal dialysis; R51.9 Headache, unspecified; R42 Dizziness and giddiness; I25.10 Atherosclerotic heart disease of native coronary artery without angina pectoris; E10.40 Type 1 diabetes mellitus with diabetic neuropathy, unspecified; E10.43 Type 1 diabetes mellitus with diabetic autonomic (poly)neuropathy; K31.84 Gastroparesis; D64.9 Anemia, unspecified; G47.00 Insomnia, unspecified; K21.9 Gastro-esophageal reflux disease without esophagitis; N25.81 Secondary hyperparathyroidism of renal origin; E78.6 Lipoprotein deficiency; Z79.899 Other long term (current) drug therapy
CPT/HCPCS: 36415; 80053; 85025; 99284

== ENCOUNTER 2021-05-02 05:47 | Emergency (ER) | payer OTHER ==
[2021-05-02] MEDS ORDERED: Lisinopril 10 MG TAB ONE (06:12)
[2021-05-02] MEDS ORDERED: hydrALAZINE 25 MG TAB ONE (06:12)
[2021-05-02 06:52] LABS: #Eosinphils 1.5 thou/uL (0.0-0.7); #Lymphocytes 1.7 thou/uL (1.20-3.40); #Monocytes 0.3 thou/uL (0.11-0.59); #Neutrophils 4.1 thou/uL (1.40-6.50); %Basophils 0.6 % (0.0-1.0); %Lymphocytes 22.8 % (21.0-51.0); %Monocytes 4.3 % (0.0-10.0); %Neutrophils 53.4 % (42.0-75.0); Hemoglobin 11.1 g/dL (12.0-16.0); Mean Corpuscular HGB CONC 30.9 g/dL (32.0-36.0); Mean Corpuscular Hemoglobin 27.8 pg (27.0-31.0); Mean Corpuscular Volume 90.1 fL (78.0-98.0); Mean Platelet Volume 9.7 fL (7.4-10.4); Platelet Count 59 thou/uL (130-400); Platelet Morphology Comment Appears Decreased; RBC Distribution Width 13.9 % (11.5-14.5); White Blood Cell (WBC) Count 7.7 thou/uL (4.8-10.8)
[2021-05-02 07:02] LABS: ALT (SGPT) 12 U/L (8-55); AST (SGOT) 25 U/L (5-34); Albumin 3.3 g/dL (3.5-5.0); Alkaline Phosphatase 236 U/L (40-110); Anion Gap 17 mmol/L (10-20); BUN (Urea Nitrogen) 38 mg/dL (7.0-18.7); Bilirubin, Total 0.7 mg/dL (0.2-1.2); Calc. Creatinine Clearance 0 mL/min (70-130); Calcium 9.4 mg/dL (7.8-10.44); Carbon Dioxide 25 mmol/L (22-29); Chloride 102 mmol/L (98-107); Globulin 2.7 g/dL (2.4-3.5); Glucose 142 mg/dL (70-105); Sodium 137 mmol/L (136-145)
[2021-05-02 07:05] LABS: Potassium 6.7 mmol/L (3.5-5.1)
== END 2021-05-02 08:55 ==
LOC: ERS 05:47
DX: I12.0 Hypertensive chronic kidney disease with stage 5 chronic kidney disease or end stage renal disease (principal); N18.6 End stage renal disease; Z99.2 Dependence on renal dialysis; H54.40 Blindness, one eye, unspecified eye; Z90.01 Acquired absence of eye; I25.10 Atherosclerotic heart disease of native coronary artery without angina pectoris; E10.40 Type 1 diabetes mellitus with diabetic neuropathy, unspecified; E10.43 Type 1 diabetes mellitus with diabetic autonomic (poly)neuropathy; K31.84 Gastroparesis; D64.9 Anemia, unspecified; K21.9 Gastro-esophageal reflux disease without esophagitis; E78.6 Lipoprotein deficiency; E21.3 Hyperparathyroidism, unspecified; G47.00 Insomnia, unspecified; Z79.899 Other long term (current) drug therapy
CPT/HCPCS: 36415; 80053; 85025; 93005

== ENCOUNTER 2021-05-24 17:04 | Emergency (ER) | payer OTHER | END 2021-05-24 20:35 | disposition home or self-care (01) | LOC: ERS 17:04 | DX: S09.90XA Unspecified injury of head, initial encounter (principal); E10.40 Type 1 diabetes mellitus with diabetic neuropathy, unspecified; E10.22 Type 1 diabetes mellitus with diabetic chronic kidney disease; I12.0 Hypertensive chronic kidney disease with stage 5 chronic kidney disease or end stage renal disease; N18.6 End stage renal disease; X58.XXXA Exposure to other specified factors, initial encounter | CPT/HCPCS: 70450 ==

== ENCOUNTER 2021-07-12 21:41 | Inpatient (IN) | payer OTHER ==
[2021-07-12] MEDS ORDERED: Ondansetron PF 4 MG/2 ML Vial ONE (23:06)
[2021-07-12] MEDS ORDERED: hydrALAZINE 20 MG/ML VIAL ONE (23:06)
[2021-07-12] MEDS ORDERED: Nitroglycerin 2% Ointment 1 INCH/1 GM Packet ONE (23:06)
[2021-07-12 23:28] LABS: #Eosinphils 0.6 thou/uL (0.0-0.7); #Lymphocytes 1.1 thou/uL (1.20-3.40); #Monocytes 0.3 thou/uL (0.11-0.59); #Neutrophils 3.6 thou/uL (1.40-6.50); %Basophils 0.7 % (0.0-1.0); %Eosinophils 9.9 % (0.0-10.0); %Lymphocytes 19.2 % (21.0-51.0); %Monocytes 5.8 % (0.0-10.0); %Neutrophils 64.3 % (42.0-75.0); Hemoglobin 10.6 g/dL (12.0-16.0); Mean Corpuscular HGB CONC 33.1 g/dL (32.0-36.0); Mean Corpuscular Hemoglobin 29.6 pg (27.0-31.0); Mean Corpuscular Volume 89.2 fL (78.0-98.0); Mean Platelet Volume 9.2 fL (7.4-10.4); Platelet Count 109 thou/uL (130-400); RBC Distribution Width 13.5 % (11.5-14.5); Red Blood Cell (RBC) Count 3.57 mill/uL (4.20-5.40); White Blood Cell (WBC) Count 5.7 thou/uL (4.8-10.8)
[2021-07-12 23:29] LABS: Platelet Morphology Comment Appears Decreased
[2021-07-12 23:49] LABS: CKMB 2.8 ng/mL (0-6.6)
[2021-07-13] MEDS ORDERED: niCARdipine 20MG In NaCl 20 MG/200 ML BAG ONE (00:02)
[2021-07-13] MEDS ORDERED: Ondansetron PF 4 MG/2 ML Vial ONE ×2 (00:05→03:38)
[2021-07-13] MEDS ORDERED: hydrALAZINE 20 MG/ML VIAL ONE (00:05)
[2021-07-13 00:25] LABS: ALT (SGPT) Less than 7 U/L (8-55); AST (SGOT) 17 U/L (5-34); Albumin 3.9 g/dL (3.5-5.0); Alkaline Phosphatase 313 U/L (40-110); Anion Gap 20 mmol/L (10-20); BUN (Urea Nitrogen) 21 mg/dL (7.0-18.7); Bilirubin, Total 0.6 mg/dL (0.2-1.2); Calc. Creatinine Clearance 0 mL/min (70-130); Calcium 9.8 mg/dL (7.8-10.44); Carbon Dioxide 27 mmol/L (22-29); Chloride 97 mmol/L (98-107); Globulin 3.4 g/dL (2.4-3.5); Glucose 176 mg/dL (70-105); Potassium 4.1 mmol/L (3.5-5.1); Protein, Total 7.3 g/dL (6.0-8.3); Sodium 140 mmol/L (136-145)
[2021-07-13] MEDS ORDERED: Promethazine HCl 25 MG/ML VIAL ONE (00:30)
[2021-07-13] MEDS ORDERED: Aspirin Chewable 81 MG TAB ONE ×2 (00:30)
[2021-07-13] MEDS ORDERED: Acetaminophen 325 MG TAB PO PRN ×2 (02:05→10:53)
[2021-07-13] MEDS ORDERED: Acetaminophen 650 MG Suppository PR PRN (02:05)
[2021-07-13] MEDS ORDERED: Ondansetron ODT 4 MG TAB PO PRN ×2 (02:05→13:21)
[2021-07-13 02:46] LABS: Troponin I 0.286 ng/mL (< 0.028)
[2021-07-13] MEDS: Ondansetron PF 4 MG/2 ML Vial IVP PRN ×2 (03:41→08:57)
[2021-07-13 04:22] LABS: Anion Gap 21 mmol/L (10-20); BUN (Urea Nitrogen) 20 mg/dL (7.0-18.7); Calc. Creatinine Clearance 0 mL/min (70-130); Calcium 9.6 mg/dL (7.8-10.44); Carbon Dioxide 27 mmol/L (22-29); Chloride 98 mmol/L (98-107); Glucose 211 mg/dL (70-105); Potassium 3.8 mmol/L (3.5-5.1); Sodium 142 mmol/L (136-145)
[2021-07-13 04:35] LABS: Troponin I 0.185 ng/mL (< 0.028)
[2021-07-13] MEDS ORDERED: Promethazine HCl 25 MG in Sodium Chloride 0.9% 50 ML IVPB PRN (04:52)
[2021-07-13 05:03] LABS: #Eosinphils 0.4 thou/uL (0.0-0.7); #Lymphocytes 0.9 thou/uL (1.20-3.40); #Monocytes 0.3 thou/uL (0.11-0.59); #Neutrophils 6.1 thou/uL (1.40-6.50); %Basophils 0.1 % (0.0-1.0); %Eosinophils 4.8 % (0.0-10.0); %Monocytes 3.7 % (0.0-10.0); %Neutrophils 79.5 % (42.0-75.0); Hemoglobin 9.7 g/dL (12.0-16.0); Mean Corpuscular HGB CONC 33.1 g/dL (32.0-36.0); Mean Corpuscular Hemoglobin 29.4 pg (27.0-31.0); Mean Corpuscular Volume 88.9 fL (78.0-98.0); Mean Platelet Volume 8.9 fL (7.4-10.4); Platelet Count 107 thou/uL (130-400); Platelet Morphology Comment Appears Decreased; RBC Distribution Width 13.4 % (11.5-14.5); Red Blood Cell (RBC) Count 3.29 mill/uL (4.20-5.40); White Blood Cell (WBC) Count 7.6 thou/uL (4.8-10.8)
[2021-07-13 05:45] LABS: SARS-CoV-2 NAA Rapid Test Not Detected (NotDetected)
[2021-07-13 07:34] VITALS: BMI 17.0
[2021-07-13] MEDS ORDERED: Labetalol HCl 100 MG/20 ML VIAL SLOW IVP PRN ×2 (08:13→12:41)
[2021-07-13] MEDS ORDERED: Dextrose 5% in Water 1,000 ML IV PRN (08:18)
[2021-07-13] MEDS ORDERED: Dextrose 50% Abboject 50 ML SYRINGE SLOW IVP PRN (08:18)
[2021-07-13] MEDS ORDERED: Insulin Regular 300 UNITS/3 ML VIAL SC PRN ×2 (08:18)
[2021-07-13] MEDS ORDERED: Nitroglycerin 2% Ointment 1 INCH/1 GM Packet TOP SCH (08:30)
[2021-07-13] MEDS ORDERED: cloNIDine 0.1mg/24 Hour PATCH TD SCH (09:00)
[2021-07-13] MEDS ORDERED: Lisinopril 20 MG TAB PO SCH (09:30)
[2021-07-13] MEDS ORDERED: Minoxidil 2.5 MG TAB PO SCH ×2 (09:30→21:00)
[2021-07-13] MEDS ORDERED: Mag-Al 1200 mg/1200 mg/30 ML UDCUP PO PRN (10:53)
[2021-07-13] MEDS ORDERED: Acetaminophen/Codeine 30-300mg Tablet PO PRN ×2 (10:53→13:20)
[2021-07-13] MEDS ORDERED: Non-Formulary Item 1 EACH (Ferric Citrate [Auryxia] 210 MG Tablet) PO PRN (10:53)
[2021-07-13] MEDS ORDERED: SEVELAMER CARBONATE PO SCH (12:00)
[2021-07-13] MEDS: Heparin 5,000 UNITS/ML VIAL SC SCH ×3 (12:15→21:18)
[2021-07-13] MEDS ORDERED: Ferric Citrate [Auryxia] 210 MG Tablet PO PRN (12:18)
[2021-07-13] MEDS ORDERED: Ondansetron ODT 4 MG TAB PO SCH (14:00)
[2021-07-13] MEDS ORDERED: Non-Formulary Item 1 EACH (Dorzolamide Hcl/Pf [Dorzolamide 2% Eye Drop] 10 ML Drops) L EYE SCH (15:00)
[2021-07-13] MEDS ORDERED: TIMOLOL MALEATE OP SCH (15:00)
[2021-07-13] MEDS ORDERED: [UNRECOGNIZED DRUG - OTHER] OP SCH (15:00)
[2021-07-13] MEDS ORDERED: Sevelamer Carbonate 800 MG TAB PO SCH (17:00)
[2021-07-13] MEDS: hydrALAZINE 25 MG TAB PO SCH ×2 (18:31→21:14)
[2021-07-13] MEDS: Dorzolamide HCl 2% Ophth Soln 10 ml Bottle L EYE SCH ×2 (18:31→21:46)
[2021-07-13] MEDS: Nitroglycerin 2% Ointment 1 INCH/1 GM Packet TOP SCH (18:32)
[2021-07-13] MEDS: Sevelamer Carbonate 800 MG TAB PO SCH (18:32)
[2021-07-13] MEDS: Timolol 0.5% Ophth Soln 5 ml Bottle EA EYE SCH ×2 (18:32→21:44)
[2021-07-13] MEDS: Calcium Acetate 667 MG CAP PO SCH (18:32)
[2021-07-13] MEDS ORDERED: Non-Formulary Item 1 EACH (Melatonin [Melatonin] 10 MG Tablet) PO SCH (21:00)
[2021-07-13] MEDS: Polyethylene Glycol 3350 17 GM Packet PO SCH (21:12)
[2021-07-13] MEDS: Melatonin 3 MG TAB PO SCH (21:13)
[2021-07-13] MEDS: Gabapentin 300 MG CAP PO SCH (21:15)
[2021-07-13] MEDS: levETIRAcetam 500 MG TAB PO SCH (21:16)
[2021-07-13] MEDS: Atropine Sulfate 1% Ophth Soln 5 ml Bottle L EYE SCH (21:43)
[2021-07-14] MEDS: Nitroglycerin 2% Ointment 1 INCH/1 GM Packet TOP SCH ×2 (02:34→10:09)
[2021-07-14 04:14] LABS: #Basophils 0.1 thou/uL (0.0-0.2); #Eosinphils 0.6 thou/uL (0.0-0.7); #Lymphocytes 1.1 thou/uL (1.20-3.40); #Monocytes 0.4 thou/uL (0.11-0.59); #Neutrophils 3.4 thou/uL (1.40-6.50); %Eosinophils 11.1 % (0.0-10.0); %Lymphocytes 19.6 % (21.0-51.0); %Monocytes 6.9 % (0.0-10.0); %Neutrophils 61.4 % (42.0-75.0); Hemoglobin 10.1 g/dL (12.0-16.0); Mean Corpuscular HGB CONC 32.5 g/dL (32.0-36.0); Mean Corpuscular Hemoglobin 28.9 pg (27.0-31.0); Mean Corpuscular Volume 89.2 fL (78.0-98.0); Mean Platelet Volume 8.7 fL (7.4-10.4); Platelet Count 115 thou/uL (130-400); RBC Distribution Width 13.7 % (11.5-14.5); White Blood Cell (WBC) Count 5.5 thou/uL (4.8-10.8)
[2021-07-14 04:33] LABS: Anion Gap 13 mmol/L (10-20); BUN (Urea Nitrogen) 5 mg/dL (7.0-18.7); Calc. Creatinine Clearance 21 mL/min (70-130); Carbon Dioxide 28 mmol/L (22-29); Chloride 100 mmol/L (98-107); Glucose 103 mg/dL (70-105); Potassium 3.5 mmol/L (3.5-5.1); Sodium 137 mmol/L (136-145)
[2021-07-14] MEDS: Sodium Chloride 0.9% 500 ML IV SCH ×2 (04:45→05:15)
[2021-07-14] MEDS ORDERED: Midodrine HCl 5 MG TAB PO SCH (06:00)
[2021-07-14] MEDS ORDERED: Lisinopril 20 MG TAB PO SCH (09:00)
[2021-07-14] MEDS ORDERED: NIFEdipine XL 60 MG TAB PO SCH (09:00)
[2021-07-14] MEDS ORDERED: PATIROMER CALCIUM SORBITEX PO SCH ×2 (09:00)
[2021-07-14] MEDS ORDERED: Non-Formulary Item 1 EACH (Sertraline Hcl [Zoloft] 50 MG Tablet) PO SCH (09:00)
[2021-07-14] MEDS: Heparin 5,000 UNITS/ML VIAL SC SCH ×3 (10:08→21:14)
[2021-07-14] MEDS: hydrALAZINE 25 MG TAB PO SCH ×3 (10:09→21:13)
[2021-07-14] MEDS: Sevelamer Carbonate 800 MG TAB PO SCH ×3 (10:10→19:20)
[2021-07-14] MEDS: Calcium Acetate 667 MG CAP PO SCH ×2 (10:10→19:19)
[2021-07-14] MEDS: levETIRAcetam 500 MG TAB PO SCH ×2 (10:11→21:14)
[2021-07-14] MEDS: Gabapentin 300 MG CAP PO SCH ×2 (10:11→21:13)
[2021-07-14] MEDS: Dorzolamide HCl 2% Ophth Soln 10 ml Bottle L EYE SCH ×3 (10:12→21:28)
[2021-07-14] MEDS: Atropine Sulfate 1% Ophth Soln 5 ml Bottle L EYE SCH ×2 (10:13→21:28)
[2021-07-14] MEDS: Timolol 0.5% Ophth Soln 5 ml Bottle EA EYE SCH ×3 (10:13→21:27)
[2021-07-14] MEDS: Midodrine HCl 5 MG TAB PO SCH ×2 (15:03→21:14)
[2021-07-14] MEDS ORDERED: Bisacodyl 10 MG SUPP PR SCH (21:00)
[2021-07-14] MEDS: Melatonin 3 MG TAB PO SCH (21:13)
[2021-07-14] MEDS: Polyethylene Glycol 3350 17 GM Packet PO SCH (21:14)
[2021-07-15 03:43] LABS: #Basophils 0.1 thou/uL (0.0-0.2); #Lymphocytes 1.7 thou/uL (1.20-3.40); #Monocytes 0.4 thou/uL (0.11-0.59); #Neutrophils 3.1 thou/uL (1.40-6.50); %Basophils 1.4 % (0.0-1.0); %Eosinophils 15.8 % (0.0-10.0); %Lymphocytes 27.4 % (21.0-51.0); %Monocytes 6.7 % (0.0-10.0); %Neutrophils 48.7 % (42.0-75.0); Hemoglobin 9.8 g/dL (12.0-16.0); Mean Corpuscular Hemoglobin 30.2 pg (27.0-31.0); Mean Corpuscular Volume 88.9 fL (78.0-98.0); Mean Platelet Volume 9.5 fL (7.4-10.4); Platelet Count 103 thou/uL (130-400); RBC Distribution Width 13.5 % (11.5-14.5); Red Blood Cell (RBC) Count 3.23 mill/uL (4.20-5.40); White Blood Cell (WBC) Count 6.4 thou/uL (4.8-10.8)
[2021-07-15 03:59] LABS: Anion Gap 13 mmol/L (10-20); BUN (Urea Nitrogen) 11 mg/dL (7.0-18.7); Calc. Creatinine Clearance 13 mL/min (70-130); Calcium 8.8 mg/dL (7.8-10.44); Carbon Dioxide 26 mmol/L (22-29); Chloride 101 mmol/L (98-107); Glucose 161 mg/dL (70-105); Sodium 136 mmol/L (136-145)
[2021-07-15] MEDS ORDERED: Aspirin 81 mg Enteric Coated Tablet PO SCH (09:00)
[2021-07-15] MEDS: levETIRAcetam 500 MG TAB PO SCH (09:39)
[2021-07-15] MEDS: Sevelamer Carbonate 800 MG TAB PO SCH ×3 (09:39→16:34)
[2021-07-15] MEDS: Calcium Acetate 667 MG CAP PO SCH ×2 (09:39→16:35)
[2021-07-15] MEDS: Dorzolamide HCl 2% Ophth Soln 10 ml Bottle L EYE SCH ×2 (09:40→16:33)
[2021-07-15] MEDS: Gabapentin 300 MG CAP PO SCH (09:40)
[2021-07-15] MEDS: Timolol 0.5% Ophth Soln 5 ml Bottle EA EYE SCH ×2 (09:40→16:34)
[2021-07-15] MEDS: Heparin 5,000 UNITS/ML VIAL SC SCH ×3 (09:40→16:34)
[2021-07-15] MEDS: Atropine Sulfate 1% Ophth Soln 5 ml Bottle L EYE SCH (09:40)
[2021-07-15] MEDS: hydrALAZINE 25 MG TAB PO SCH ×2 (09:46→16:35)
[2021-07-15] MEDS ORDERED: Epoetin (ESRD) 20,000 UNITS/ML SC SCH (10:00)
[2021-07-15] MEDS ORDERED: Minoxidil 2.5 MG TAB PO SCH (10:15)
[2021-07-15] MEDS ORDERED: EPOETIN ALFA-EPBX (ESRD) 4,000 UNIT/ML VIAL SC SCH (12:00)
[2021-07-15 16:32] VITALS: BP 177/75; TEMP 98.4
[2021-07-16] MEDS ORDERED: Minoxidil 2.5 MG TAB PO SCH (09:00)
== END 2021-07-15 17:14 | DRG 304 ==
LOC: ERS 21:41 → ERHOLD 07-13 01:08 → 2NO 07-13 06:02
PROVIDERS: ADMIT Student in an Organized Health Care Education/Training Program; ATTEND Internal Medicine
PROC: 5A1D70Z Performance of Urinary Filtration, Intermittent, Less than 6 Hours Per Day (ICD-10-PCS; principal; 2021-07-13)
DX: I16.1 Hypertensive emergency (principal); N18.6 End stage renal disease; E43 Unspecified severe protein-calorie malnutrition; N25.81 Secondary hyperparathyroidism of renal origin; Z68.1 Body mass index [BMI] 19.9 or less, adult; Z20.822 Contact with and (suspected) exposure to COVID-19; I25.10 Atherosclerotic heart disease of native coronary artery without angina pectoris; I12.0 Hypertensive chronic kidney disease with stage 5 chronic kidney disease or end stage renal disease; H54.7 Unspecified visual loss; E10.42 Type 1 diabetes mellitus with diabetic polyneuropathy; E10.22 Type 1 diabetes mellitus with diabetic chronic kidney disease; E10.43 Type 1 diabetes mellitus with diabetic autonomic (poly)neuropathy; E10.319 Type 1 diabetes mellitus with unspecified diabetic retinopathy without macular edema; K31.84 Gastroparesis; R79.89 Other specified abnormal findings of blood chemistry; R11.2 Nausea with vomiting, unspecified; D63.1 Anemia in chronic kidney disease; K21.00 Gastro-esophageal reflux disease with esophagitis, without bleeding; H40.9 Unspecified glaucoma; F41.9 Anxiety disorder, unspecified; F32.9 Major depressive disorder, single episode, unspecified; I95.9 Hypotension, unspecified; D69.6 Thrombocytopenia, unspecified; G40.909 Epilepsy, unspecified, not intractable, without status epilepticus; Z99.2 Dependence on renal dialysis; Z91.19 Patient's noncompliance with other medical treatment and regimen; Z79.4 Long term (current) use of insulin; Z79.899 Other long term (current) drug therapy
CPT/HCPCS: 0240U; 36415; 36416; 70450; 71045; 80048; 80053; 82553; 83880; 84484; 85025; 90935; 93005; 96365; 96375; 96376; G0257; J0360; J1644; J2405; J2550; Q5105

== ENCOUNTER 2021-08-13 18:32 | Emergency (ER) | payer OTHER | END 2021-08-13 19:57 | LOC: ERS 18:32 | DX: R07.9 Chest pain, unspecified (principal); Z91.19 Patient's noncompliance with other medical treatment and regimen; I25.10 Atherosclerotic heart disease of native coronary artery without angina pectoris; E10.40 Type 1 diabetes mellitus with diabetic neuropathy, unspecified; E10.43 Type 1 diabetes mellitus with diabetic autonomic (poly)neuropathy; K31.84 Gastroparesis; I12.0 Hypertensive chronic kidney disease with stage 5 chronic kidney disease or end stage renal disease; E10.22 Type 1 diabetes mellitus with diabetic chronic kidney disease; N18.6 End stage renal disease; G47.00 Insomnia, unspecified; K21.9 Gastro-esophageal reflux disease without esophagitis; E78.5 Hyperlipidemia, unspecified; D63.1 Anemia in chronic kidney disease; N25.81 Secondary hyperparathyroidism of renal origin; Z99.2 Dependence on renal dialysis | CPT/HCPCS: 99284 ==

== ENCOUNTER 2021-08-13 22:59 | Inpatient (IN) | payer OTHER ==
[2021-08-14 00:19] LABS: #Eosinphils 0.6 thou/uL (0.0-0.7); #Lymphocytes 1.3 thou/uL (1.20-3.40); #Monocytes 0.3 thou/uL (0.11-0.59); #Neutrophils 4.1 thou/uL (1.40-6.50); %Basophils 0.4 % (0.0-1.0); %Monocytes 4.7 % (0.0-10.0); %Neutrophils 65.8 % (42.0-75.0); Mean Corpuscular HGB CONC 33.1 g/dL (32.0-36.0); Mean Corpuscular Hemoglobin 29.7 pg (27.0-31.0); Mean Corpuscular Volume 89.5 fL (78.0-98.0); Mean Platelet Volume 8.9 fL (7.4-10.4); Platelet Count 136 thou/uL (130-400); RBC Distribution Width 14.7 % (11.5-14.5); Red Blood Cell (RBC) Count 3.04 mill/uL (4.20-5.40); White Blood Cell (WBC) Count 6.2 thou/uL (4.8-10.8)
[2021-08-14] MEDS ORDERED: cefTRIAXone\\ROCEPHIN 1 GM VIAL ONE (00:20)
[2021-08-14 00:44] LABS: ALT (SGPT) 11 U/L (8-55); AST (SGOT) 18 U/L (5-34); Acetaminophen Less than 6.0 mcg/mL (10.0-30.0); Albumin 3.4 g/dL (3.5-5.0); Alcohol Less than 10 mg/dL (Less than 10); Alkaline Phosphatase 304 U/L (40-110); Anion Gap 17 mmol/L (10-20); BUN (Urea Nitrogen) 65 mg/dL (7.0-18.7); Bilirubin, Total 0.7 mg/dL (0.2-1.2); Calc. Creatinine Clearance 0 mL/min (70-130); Calcium 8.8 mg/dL (7.8-10.44); Carbon Dioxide 30 mmol/L (22-29); Chloride 95 mmol/L (98-107); Globulin 2.4 g/dL (2.4-3.5); Glucose 203 mg/dL (70-105); Potassium 6.5 mmol/L (3.5-5.1); Protein, Total 5.8 g/dL (6.0-8.3); Salicylate Less than 8.0 mg/dL (15.0-30.0); Sodium 135 mmol/L (136-145)
[2021-08-14] MEDS ORDERED: Azithromycin 500 MG VIAL ONE (01:08)
[2021-08-14 03:53] LABS: SARS-CoV-2 NAA Rapid Test Not Detected (NotDetected)
[2021-08-14] MEDS ORDERED: Pharmacy to Dose VANC AND CEFEPIME IVPB PRN (03:57)
[2021-08-14] MEDS ORDERED: Sodium Chloride 0.9% 250 ML IV SCH (04:00)
[2021-08-14] MEDS ORDERED: HumaLOG 300 UNITS/3 ML VIAL SC PRN ×2 (04:01)
[2021-08-14] MEDS ORDERED: Dextrose 50% Abboject 50 ML SYRINGE SLOW IVP PRN (04:01)
[2021-08-14] MEDS ORDERED: Dextrose 5% in Water 1,000 ML IV PRN (04:01)
[2021-08-14] MEDS ORDERED: Vancomycin 1 GM in Premix Bag 1 BAG IVPB SCH ×2 (04:30→05:00)
[2021-08-14] MEDS ORDERED: Vancomycin HCl 750 MG in Sodium Chloride 0.9% 250 ML 250 ML IVPB SCH (04:30)
[2021-08-14] MEDS ORDERED: Vancomycin HCl 500 MG in Sodium Chloride 0.9% 100 ML IVPB SCH (04:30)
[2021-08-14] MEDS ORDERED: HOLD VANCOMYCIN FOR LEVEL >20 FS SCH (04:30)
[2021-08-14] MEDS ORDERED: Vancomycin HCl 250 MG in Sodium Chloride 0.9% 100 ML IVPB SCH (04:30)
[2021-08-14] MEDS ORDERED: Vancomycin 1 GM/200 ML BAG ONE (05:42)
[2021-08-14] MEDS ORDERED: Cefepime 1 GM in Sodium Chloride 0.9% 100 ML IVPB SCH (06:00)
[2021-08-14 07:51] LABS: #Eosinphils 0.6 thou/uL (0.0-0.7); #Lymphocytes 1.2 thou/uL (1.20-3.40); #Monocytes 0.3 thou/uL (0.11-0.59); #Neutrophils 3.6 thou/uL (1.40-6.50); %Basophils 0.7 % (0.0-1.0); %Eosinophils 9.9 % (0.0-10.0); %Lymphocytes 21.2 % (21.0-51.0); %Monocytes 4.9 % (0.0-10.0); %Neutrophils 63.3 % (42.0-75.0); Mean Corpuscular HGB CONC 32.6 g/dL (32.0-36.0); Mean Corpuscular Hemoglobin 28.8 pg (27.0-31.0); Mean Corpuscular Volume 88.4 fL (78.0-98.0); Mean Platelet Volume 9.2 fL (7.4-10.4); Platelet Count 139 thou/uL (130-400); RBC Distribution Width 14.4 % (11.5-14.5); Red Blood Cell (RBC) Count 3.13 mill/uL (4.20-5.40); White Blood Cell (WBC) Count 5.7 thou/uL (4.8-10.8)
[2021-08-14 08:13] LABS: Anion Gap 14 mmol/L (10-20); BUN (Urea Nitrogen) 65 mg/dL (7.0-18.7); Calc. Creatinine Clearance 8 mL/min (70-130); Calcium 8.7 mg/dL (7.8-10.44); Carbon Dioxide 30 mmol/L (22-29); Chloride 98 mmol/L (98-107); Glucose 262 mg/dL (70-105); Potassium 6.2 mmol/L (3.5-5.1); Sodium 136 mmol/L (136-145)
[2021-08-14 08:18] LABS: Troponin I Less than 0.010 ng/mL (< 0.028)
[2021-08-14 08:19] LABS: Troponin I 0.013 ng/mL (< 0.028)
[2021-08-14] MEDS ORDERED: Cefepime 1 GM VIAL ONE (10:00)
[2021-08-14] MEDS ORDERED: Sodium Chloride 0.9% 100 ML ONE (10:00)
[2021-08-14] MEDS: Heparin 5,000 UNITS/ML VIAL SC SCH ×3 (10:17→20:56)
[2021-08-14] MEDS ORDERED: Epoetin (ESRD) 20,000 UNITS/ML SC SCH (11:15)
[2021-08-14] MEDS: levETIRAcetam 500 MG TAB PO SCH ×2 (11:32→20:56)
[2021-08-14] MEDS ORDERED: EPOETIN ALFA-EPBX (ESRD) 4,000 UNIT/ML VIAL SC SCH (11:45)
[2021-08-14 15:06] LABS: Hep B Surf Ag Non-Reactive S/CO (NonReactive)
[2021-08-14] MEDS: Lantus 1000 UNITS/10 ML VIAL SC SCH (19:34)
[2021-08-14] MEDS: Acetaminophen 325 MG TAB PO PRN (20:56)
[2021-08-15] MEDS: Cefepime 0.5 GM, Admixture Fee 1 EACH in Sodium Chloride 0.9% 100 ML IVPB SCH (05:52)
[2021-08-15] MEDS: levETIRAcetam 500 MG TAB PO SCH ×2 (08:46→20:00)
[2021-08-15] MEDS: Heparin 5,000 UNITS/ML VIAL SC SCH ×2 (08:47→14:17)
[2021-08-15] MEDS: Lantus 1000 UNITS/10 ML VIAL SC SCH (08:48)
[2021-08-15 11:06] LABS: ALT (SGPT) 7 U/L (8-55); AST (SGOT) 11 U/L (5-34); Albumin 3.3 g/dL (3.5-5.0); Alkaline Phosphatase 263 U/L (40-110); Anion Gap 11 mmol/L (10-20); BUN (Urea Nitrogen) 15 mg/dL (7.0-18.7); Bilirubin, Total 0.6 mg/dL (0.2-1.2); Calc. Creatinine Clearance 29 mL/min (70-130); Calcium 8.3 mg/dL (7.8-10.44); Carbon Dioxide 32 mmol/L (22-29); Chloride 101 mmol/L (98-107); Globulin 2.3 g/dL (2.4-3.5); Glucose 180 mg/dL (70-105); Potassium 3.7 mmol/L (3.5-5.1); Protein, Total 5.6 g/dL (6.0-8.3); Sodium 140 mmol/L (136-145)
[2021-08-15 11:07] LABS: Anion Gap 11 mmol/L (10-20); BUN (Urea Nitrogen) 16 mg/dL (7.0-18.7); Calc. Creatinine Clearance 30 mL/min (70-130); Calcium 8.5 mg/dL (7.8-10.44); Carbon Dioxide 30 mmol/L (22-29); Chloride 101 mmol/L (98-107); Glucose 182 mg/dL (70-105); Potassium 3.6 mmol/L (3.5-5.1); Sodium 138 mmol/L (136-145)
[2021-08-15 11:50] LABS: #Basophils 0.1 thou/uL (0.0-0.2); #Eosinphils 0.4 thou/uL (0.0-0.7); #Lymphocytes 0.9 thou/uL (1.20-3.40); #Monocytes 0.3 thou/uL (0.11-0.59); #Neutrophils 2.5 thou/uL (1.40-6.50); %Basophils 1.5 % (0.0-1.0); %Eosinophils 10.6 % (0.0-10.0); %Lymphocytes 22.3 % (21.0-51.0); %Monocytes 6.4 % (0.0-10.0); %Neutrophils 59.2 % (42.0-75.0); Hemoglobin 8.4 g/dL (12.0-16.0); Hypochromia SLIGHT = 6-15 cells (100X) (0-5/hpf); MDiff Complete? YES; Mean Corpuscular HGB CONC 33.1 g/dL (32.0-36.0); Mean Corpuscular Hemoglobin 29.4 pg (27.0-31.0); Mean Corpuscular Volume 88.8 fL (78.0-98.0); Mean Platelet Volume 8.7 fL (7.4-10.4); Platelet Count 90 thou/uL (130-400); Platelet Morphology Comment Appears Decreased; RBC Distribution Width 14.2 % (11.5-14.5); Red Blood Cell (RBC) Count 2.84 mill/uL (4.20-5.40); White Blood Cell (WBC) Count 4.2 thou/uL (4.8-10.8)
[2021-08-15] MEDS ORDERED: Vancomycin HCl 750 MG in Sodium Chloride 0.9% 250 ML 250 ML IVPB SCH (12:00)
[2021-08-15 14:44] VITALS: BMI 15.9
[2021-08-15] MEDS ORDERED: hydrALAZINE 25 MG TAB PO PRN (17:17)
[2021-08-15] MEDS: Acetaminophen 325 MG TAB PO PRN (20:00)
[2021-08-15] MEDS ORDERED: Gabapentin 300 MG CAP PO SCH (21:47)
[2021-08-15] MEDS: Lorazepam 2 MG/ML VIAL SLOW IVP SCH (22:38)
[2021-08-15] MEDS ORDERED: Acetaminophen/Codeine 30-300mg Tablet PO PRN (23:00)
[2021-08-16] MEDS: Lorazepam 2 MG/ML VIAL SLOW IVP SCH (00:01)
[2021-08-16] MEDS: Ondansetron PF 4 MG/2 ML Vial IVP PRN ×2 (03:09→08:59)
[2021-08-16] MEDS ORDERED: hydrALAZINE 20 MG/ML VIAL SLOW IVP PRN (03:48)
[2021-08-16] MEDS ORDERED: Promethazine HCl 25 MG/ML VIAL IM SCH (03:49)
[2021-08-16] MEDS: Cefepime 0.5 GM, Admixture Fee 1 EACH in Sodium Chloride 0.9% 100 ML IVPB SCH (05:40)
[2021-08-16] MEDS ORDERED: Calcium Acetate 667 MG CAP PO SCH (08:00)
[2021-08-16] MEDS ORDERED: Ferrous Sulfate 325 MG TAB PO SCH (08:00)
[2021-08-16] MEDS ORDERED: hydrALAZINE 25 MG TAB PO SCH (09:00)
[2021-08-16] MEDS ORDERED: cloNIDine 0.1 MG TAB PO SCH (09:00)
[2021-08-16] MEDS: Lantus 1000 UNITS/10 ML VIAL SC SCH (12:16)
[2021-08-16] MEDS: levETIRAcetam 500 MG TAB PO SCH (12:17)
[2021-08-16 15:29] VITALS: BP 114/55; TEMP 98.5
== END 2021-08-16 16:40 | DRG 193 ==
LOC: ERS 22:59 → ERHOLD 08-14 01:56 → 2NO 08-14 02:02
PROVIDERS: ADMIT Internal Medicine; ATTEND Internal Medicine
PROC: 5A1D70Z Performance of Urinary Filtration, Intermittent, Less than 6 Hours Per Day (ICD-10-PCS; principal; 2021-08-14)
DX: J18.9 Pneumonia, unspecified organism (principal); N18.6 End stage renal disease; I12.0 Hypertensive chronic kidney disease with stage 5 chronic kidney disease or end stage renal disease; G40.909 Epilepsy, unspecified, not intractable, without status epilepticus; E10.22 Type 1 diabetes mellitus with diabetic chronic kidney disease; E10.42 Type 1 diabetes mellitus with diabetic polyneuropathy; K21.9 Gastro-esophageal reflux disease without esophagitis; F41.9 Anxiety disorder, unspecified; F32.9 Major depressive disorder, single episode, unspecified; D64.9 Anemia, unspecified; I25.10 Atherosclerotic heart disease of native coronary artery without angina pectoris; E87.5 Hyperkalemia; Z20.822 Contact with and (suspected) exposure to COVID-19; Z99.2 Dependence on renal dialysis; Z79.82 Long term (current) use of aspirin; Z79.4 Long term (current) use of insulin; Z79.899 Other long term (current) drug therapy; Z98.51 Tubal ligation status; Z98.890 Other specified postprocedural states
CPT/HCPCS: 36415; 36416; 70450; 71045; 72100; 72125; 74018; 80048; 80053; 80202; 80307; 83605; 83880; 84443; 84484; 85025; 87040; 87340; 90935; 93005; 96365; 96367; G0257; J0360; J0456; J0692; J0696; J1815; J2060; J2405; J2550; J3370; J3490; J7030; J7050; Q5105; U0002

== ENCOUNTER 2021-08-29 13:52 | Observation (INO) | payer OTHER ==
[2021-08-29 15:00] LABS: #Basophils 0.1 thou/uL (0.0-0.2); #Eosinphils 0.5 thou/uL (0.0-0.7); #Lymphocytes 1.6 thou/uL (1.20-3.40); #Monocytes 0.5 thou/uL (0.11-0.59); #Neutrophils 3.5 thou/uL (1.40-6.50); %Basophils 1.2 % (0.0-1.0); %Eosinophils 8.2 % (0.0-10.0); %Lymphocytes 26.4 % (21.0-51.0); %Monocytes 7.4 % (0.0-10.0); %Neutrophils 56.9 % (42.0-75.0); Mean Corpuscular HGB CONC 33.8 g/dL (32.0-36.0); Mean Corpuscular Volume 88.8 fL (78.0-98.0); Mean Platelet Volume 8.7 fL (7.4-10.4); Platelet Count 121 thou/uL (130-400); RBC Distribution Width 14.2 % (11.5-14.5); Red Blood Cell (RBC) Count 3.34 mill/uL (4.20-5.40); White Blood Cell (WBC) Count 6.2 thou/uL (4.8-10.8)
[2021-08-29 15:21] LABS: ALT (SGPT) Less than 7 U/L (8-55); AST (SGOT) 10 U/L (5-34); Albumin 3.4 g/dL (3.5-5.0); Alkaline Phosphatase 259 U/L (40-110); Anion Gap 15 mmol/L (10-20); BUN (Urea Nitrogen) 39 mg/dL (7.0-18.7); Bilirubin, Total 0.4 mg/dL (0.2-1.2); Calc. Creatinine Clearance 0 mL/min (70-130); Carbon Dioxide 32 mmol/L (22-29); Chloride 98 mmol/L (98-107); Globulin 2.4 g/dL (2.4-3.5); Glucose 175 mg/dL (70-105); Protein, Total 5.8 g/dL (6.0-8.3); Sodium 140 mmol/L (136-145)
[2021-08-29 15:43] LABS: CKMB 1.8 ng/mL (0-6.6)
[2021-08-29] MEDS ORDERED: Ondansetron PF 4 MG/2 ML Vial IVP PRN (18:30)
[2021-08-29] MEDS ORDERED: Senokot S 8.6-50 MG TAB PO PRN (18:30)
[2021-08-29] MEDS ORDERED: Melatonin 3 MG TAB PO PRN (18:38)
[2021-08-29] MEDS ORDERED: hydrOXYzine 25 MG TAB PO PRN (18:39)
[2021-08-29] MEDS ORDERED: hydrALAZINE 20 MG/ML VIAL SLOW IVP PRN (18:40)
[2021-08-29] MEDS ORDERED: Nitroglycerin 0.4 MG TAB (25 Tab Bottle) SL PRN (18:41)
[2021-08-29 18:58] LABS: Troponin I 0.092 ng/mL (< 0.028)
[2021-08-29] MEDS ORDERED: Dextrose 50% Abboject 50 ML SYRINGE SLOW IVP PRN (19:39)
[2021-08-29] MEDS ORDERED: Dextrose 5% in Water 1,000 ML IV PRN (19:39)
[2021-08-29] MEDS ORDERED: HumaLOG 300 UNITS/3 ML VIAL SC PRN ×2 (19:39)
[2021-08-29] MEDS ORDERED: cloNIDine 0.1 MG TAB PO PRN (19:41)
[2021-08-29] MEDS ORDERED: Meclizine HCl 25 MG TAB PO PRN (19:41)
[2021-08-29] MEDS ORDERED: Ferric Citrate [Auryxia] 210 MG Tablet PO PRN (20:10)
[2021-08-29] MEDS ORDERED: Metoclopramide HCl 10 MG TAB PO PRN (20:16)
[2021-08-29] MEDS ORDERED: Sevelamer Carbonate 800 MG TAB PO SCH (20:30)
[2021-08-29] MEDS ORDERED: Calcium Acetate 667 MG CAP PO SCH (21:00)
[2021-08-29 21:14] VITALS: BMI 18.1
[2021-08-29 21:14] LABS: Troponin I 0.082 ng/mL (< 0.028)
[2021-08-29] MEDS: Famotidine/PF 20 mg/2ml Vial SLOW IVP SCH (21:37)
[2021-08-29] MEDS: Dorzolamide HCl 2% Ophth Soln 10 ml Bottle L EYE SCH (21:37)
[2021-08-29] MEDS: Atropine Sulfate 1% Ophth Soln 5 ml Bottle L EYE SCH (21:37)
[2021-08-29] MEDS: Gabapentin 300 MG CAP PO SCH (21:38)
[2021-08-29] MEDS: Heparin 5,000 UNITS/ML VIAL SC SCH (21:38)
[2021-08-29] MEDS: Polyethylene Glycol 3350 17 GM Packet PO SCH (21:39)
[2021-08-29] MEDS: Acetaminophen 325 MG TAB PO PRN (21:39)
[2021-08-29] MEDS: levETIRAcetam 500 MG TAB PO SCH (21:39)
[2021-08-29] MEDS: hydrALAZINE 25 MG TAB PO SCH (21:39)
[2021-08-29] MEDS: Timolol 0.5% Ophth Soln 5 ml Bottle L EYE SCH (21:39)
[2021-08-30] MEDS ORDERED: Fioricet 325/50/40 mg Tablet PO PRN (08:22)
[2021-08-30] MEDS: Aspirin 81 mg Enteric Coated Tablet PO SCH (08:49)
[2021-08-30] MEDS: Minoxidil 2.5 MG TAB PO SCH (08:49)
[2021-08-30] MEDS: NIFEdipine XL 60 MG TAB PO SCH (08:49)
[2021-08-30] MEDS: hydrALAZINE 25 MG TAB PO SCH ×3 (08:49→22:51)
[2021-08-30] MEDS: levETIRAcetam 500 MG TAB PO SCH ×2 (08:50→22:51)
[2021-08-30] MEDS: Gabapentin 300 MG CAP PO SCH ×2 (08:50→22:50)
[2021-08-30] MEDS: Calcium Acetate 667 MG CAP PO SCH ×3 (08:50→16:36)
[2021-08-30] MEDS: Sevelamer Carbonate 800 MG TAB PO SCH ×4 (08:50→16:36)
[2021-08-30] MEDS: Polyethylene Glycol 3350 17 GM Packet PO SCH ×2 (08:55→22:51)
[2021-08-30] MEDS: Atropine Sulfate 1% Ophth Soln 5 ml Bottle L EYE SCH ×2 (08:55→22:50)
[2021-08-30] MEDS: Timolol 0.5% Ophth Soln 5 ml Bottle L EYE SCH ×2 (08:56→22:51)
[2021-08-30] MEDS: Dorzolamide HCl 2% Ophth Soln 10 ml Bottle L EYE SCH ×2 (08:56→22:50)
[2021-08-30] MEDS: Heparin 5,000 UNITS/ML VIAL SC SCH ×3 (08:56→22:50)
[2021-08-30] MEDS: Lantus 1000 UNITS/10 ML VIAL SC SCH (09:05)
[2021-08-30 09:15] LABS: #Basophils 0.1 thou/uL (0.0-0.2); #Eosinphils 0.4 thou/uL (0.0-0.7); #Lymphocytes 1.5 thou/uL (1.20-3.40); #Monocytes 0.3 thou/uL (0.11-0.59); #Neutrophils 2.8 thou/uL (1.40-6.50); %Basophils 1.9 % (0.0-1.0); %Eosinophils 8.8 % (0.0-10.0); %Lymphocytes 29.4 % (21.0-51.0); %Monocytes 5.6 % (0.0-10.0); %Neutrophils 54.4 % (42.0-75.0); Hemoglobin 9.4 g/dL (12.0-16.0); Mean Corpuscular HGB CONC 33.4 g/dL (32.0-36.0); Mean Corpuscular Hemoglobin 29.4 pg (27.0-31.0); Mean Corpuscular Volume 88.1 fL (78.0-98.0); Mean Platelet Volume 8.4 fL (7.4-10.4); Platelet Count 124 thou/uL (130-400); White Blood Cell (WBC) Count 5.1 thou/uL (4.8-10.8)
[2021-08-30 09:21] LABS: Hemoglobin A1c 5.8 % (4.0-6.0)
[2021-08-30 09:40] LABS: Anion Gap 16 mmol/L (10-20); BUN (Urea Nitrogen) 42 mg/dL (7.0-18.7); Calc. Creatinine Clearance 7 mL/min (70-130); Calcium 9.3 mg/dL (7.8-10.44); Carbon Dioxide 32 mmol/L (22-29); Chloride 96 mmol/L (98-107); Glucose 109 mg/dL (70-105); Potassium 5.4 mmol/L (3.5-5.1); Sodium 139 mmol/L (136-145)
[2021-08-30 12:39] LABS: SARS-CoV-2 PCR by NAA Not Detected (NotDetected)
[2021-08-30] MEDS ORDERED: Dexamethasone 4 mg/ml Vial SLOW IVP SCH (18:00)
[2021-08-30] MEDS: Famotidine/PF 20 mg/2ml Vial SLOW IVP SCH (22:50)
[2021-08-31] MEDS: Acetaminophen 325 MG TAB PO PRN (01:47)
[2021-08-31] MEDS ORDERED: Aspirin/APAP/Caffeine Tab (Excedrin Migraine) PO PRN (04:07)
[2021-08-31] MEDS ORDERED: Non-Formulary Item 1 EACH (Timolol [Betimol 0.5% Ophth Solution] 5 ML Bottle) L EYE SCH (09:00)
[2021-08-31] MEDS ORDERED: PATIROMER CALCIUM SORBITEX PO SCH (09:00)
[2021-08-31 09:47] LABS: #Basophils 0.1 thou/uL (0.0-0.2); #Lymphocytes 1.3 thou/uL (1.20-3.40); #Monocytes 0.2 thou/uL (0.11-0.59); #Neutrophils 3.7 thou/uL (1.40-6.50); %Basophils 1.3 % (0.0-1.0); %Eosinophils 0.4 % (0.0-10.0); %Lymphocytes 24.7 % (21.0-51.0); %Monocytes 3.2 % (0.0-10.0); %Neutrophils 70.4 % (42.0-75.0); Hemoglobin 8.7 g/dL (12.0-16.0); Mean Corpuscular HGB CONC 32.7 g/dL (32.0-36.0); Mean Corpuscular Hemoglobin 28.6 pg (27.0-31.0); Mean Corpuscular Volume 87.5 fL (78.0-98.0); Mean Platelet Volume 8.6 fL (7.4-10.4); Platelet Count 121 thou/uL (130-400); RBC Distribution Width 14.2 % (11.5-14.5); Red Blood Cell (RBC) Count 3.04 mill/uL (4.20-5.40); White Blood Cell (WBC) Count 5.3 thou/uL (4.8-10.8)
[2021-08-31 10:13] LABS: Anion Gap 11 mmol/L (10-20); BUN (Urea Nitrogen) 16 mg/dL (7.0-18.7); Calc. Creatinine Clearance 16 mL/min (70-130); Calcium 8.6 mg/dL (7.8-10.44); Carbon Dioxide 32 mmol/L (22-29); Chloride 100 mmol/L (98-107); Glucose 306 mg/dL (70-105); Potassium 4.1 mmol/L (3.5-5.1); Sodium 139 mmol/L (136-145)
[2021-08-31 13:12] VITALS: TEMP 98.1
[2021-08-31] MEDS: Sevelamer Carbonate 800 MG TAB PO SCH ×2 (13:14→14:06)
[2021-08-31] MEDS: hydrALAZINE 25 MG TAB PO SCH ×2 (13:15→14:39)
[2021-08-31] MEDS: Polyethylene Glycol 3350 17 GM Packet PO SCH (13:15)
[2021-08-31] MEDS: Heparin 5,000 UNITS/ML VIAL SC SCH (13:15)
[2021-08-31] MEDS: Lantus 1000 UNITS/10 ML VIAL SC SCH (13:16)
[2021-08-31] MEDS: Calcium Acetate 667 MG CAP PO SCH (14:04)
[2021-08-31] MEDS: Aspirin 81 mg Enteric Coated Tablet PO SCH (14:05)
[2021-08-31] MEDS: Minoxidil 2.5 MG TAB PO SCH (14:05)
[2021-08-31] MEDS: Atropine Sulfate 1% Ophth Soln 5 ml Bottle L EYE SCH (14:05)
[2021-08-31] MEDS: Gabapentin 300 MG CAP PO SCH (14:05)
[2021-08-31] MEDS: Dorzolamide HCl 2% Ophth Soln 10 ml Bottle L EYE SCH (14:05)
[2021-08-31] MEDS: levETIRAcetam 500 MG TAB PO SCH (14:05)
[2021-08-31] MEDS: NIFEdipine XL 60 MG TAB PO SCH (14:06)
[2021-08-31] MEDS: Timolol 0.5% Ophth Soln 5 ml Bottle L EYE SCH (14:06)
[2021-08-31 14:43] VITALS: BP 127/58
[2021-08-31] MEDS ORDERED: Melatonin 3 MG TAB PO SCH (21:00)
[2021-09-01] MEDS ORDERED: FLU VACC QS2021-22(6MOS UP)/PF 60 MCG/0.5 ML SYRINGE IM ONE (09:00)
== END 2021-08-31 16:25 ==
LOC: ERS 13:52 → 2NO 17:08 → INTOOBSV 17:08
PROVIDERS: ADMIT Internal Medicine; ATTEND Internal Medicine
DX: R07.9 Chest pain, unspecified (principal); R77.8 Other specified abnormalities of plasma proteins; E10.65 Type 1 diabetes mellitus with hyperglycemia; I12.0 Hypertensive chronic kidney disease with stage 5 chronic kidney disease or end stage renal disease; E10.22 Type 1 diabetes mellitus with diabetic chronic kidney disease; N18.6 End stage renal disease; E10.40 Type 1 diabetes mellitus with diabetic neuropathy, unspecified; E10.21 Type 1 diabetes mellitus with diabetic nephropathy; E10.43 Type 1 diabetes mellitus with diabetic autonomic (poly)neuropathy; K31.84 Gastroparesis; D63.1 Anemia in chronic kidney disease; M79.10 Myalgia, unspecified site; E87.5 Hyperkalemia; I25.10 Atherosclerotic heart disease of native coronary artery without angina pectoris; E78.5 Hyperlipidemia, unspecified; E21.3 Hyperparathyroidism, unspecified; K21.9 Gastro-esophageal reflux disease without esophagitis; E10.36 Type 1 diabetes mellitus with diabetic cataract; H26.9 Unspecified cataract; G43.909 Migraine, unspecified, not intractable, without status migrainosus; Z20.822 Contact with and (suspected) exposure to COVID-19; Z91.15 Patient's noncompliance with renal dialysis; Z79.890 Hormone replacement therapy; Z79.4 Long term (current) use of insulin; Z79.899 Other long term (current) drug therapy; Z99.2 Dependence on renal dialysis
CPT/HCPCS: 36415; 36416; 71045; 80048; 80053; 82553; 83036; 84484; 85025; 86140; 90935; 93005; 96374; 96375; G0257; G0378; J1100; J1644; J1815; S0028; U0003; U0005

== ENCOUNTER 2021-09-14 17:42 | Emergency (ER) | payer OTHER ==
[2021-09-14] MEDS ORDERED: Sodium Bicarb 50 MEQ/50 ML Abboject 8.4% SYRINGE ONE (17:46)
[2021-09-14] MEDS ORDERED: Calcium Chloride 1 GM/10 ML Abboject SYRINGE ONE ×2 (17:46→18:06)
[2021-09-14] MEDS ORDERED: Dextrose 50% Abboject 50 ML SYRINGE ONE ×2 (17:46→18:03)
[2021-09-14] MEDS ORDERED: Insulin Regular 300 UNITS/3 ML VIAL ONE (17:46)
[2021-09-14] MEDS ORDERED: Albuterol Sulfate 2.5 mg/0.5 ml Neb ONE (18:07)
[2021-09-14 18:08] LABS: Actual Bicarbonate (HCO3v) 24 mEq/L (22-28); Analyzer IN Cardio ER; Base Excess -2.4 mEq/L (-2.0 to +3.0); Calcium, Ionized (venous) 1.51 mmol/L (1.16-1.32); Chloride (VBG) 101 mmol/L (98-106); Hemoglobin (Hb) 9.2 g/dL (11.7-15.5); Potassium (VBG) 8.18 mmol/L (3.70-5.30); pH (venous) 7.33 (7.32-7.43)
[2021-09-14 18:46] LABS: ALT (SGPT) 9 U/L (8-55); AST (SGOT) 22 U/L (5-34); Albumin 3.6 g/dL (3.5-5.0); Alkaline Phosphatase 345 U/L (40-110); Anion Gap 21 mmol/L (10-20); BUN (Urea Nitrogen) 73 mg/dL (7.0-18.7); Bilirubin, Total 0.6 mg/dL (0.2-1.2); CK (CPK) 342 U/L (29-168); Calc. Creatinine Clearance 0 mL/min (70-130); Carbon Dioxide 23 mmol/L (22-29); Chloride 101 mmol/L (98-107); Globulin 2.8 g/dL (2.4-3.5); Glucose 125 mg/dL (70-105); Magnesium 2.7 mg/dL (1.6-2.6); Protein, Total 6.4 g/dL (6.0-8.3); Sodium 137 mmol/L (136-145)
[2021-09-14 18:52] LABS: Potassium 8.4 mmol/L (3.5-5.1)
== END 2021-09-14 18:15 | disposition expired ==
LOC: ERS 17:42
DX: I46.9 Cardiac arrest, cause unspecified (principal); E87.5 Hyperkalemia; I12.0 Hypertensive chronic kidney disease with stage 5 chronic kidney disease or end stage renal disease; E10.22 Type 1 diabetes mellitus with diabetic chronic kidney disease; N18.6 End stage renal disease; I25.10 Atherosclerotic heart disease of native coronary artery without angina pectoris; E10.40 Type 1 diabetes mellitus with diabetic neuropathy, unspecified; E10.43 Type 1 diabetes mellitus with diabetic autonomic (poly)neuropathy; K31.84 Gastroparesis; D63.1 Anemia in chronic kidney disease; K21.9 Gastro-esophageal reflux disease without esophagitis; Z99.2 Dependence on renal dialysis
CPT/HCPCS: 36416; 36600; 36680; 80053; 82550; 82805; 83605; 83735; 84484; 93005; J1815; J7611